=== PATIENT | female | born 1945 | race Caucasian/White ===

== ENCOUNTER → 2017-11-21 | Outpatient (CLI) | payer MEDICARE ==
[~2017-11-21] MED LIST: ALBU17AE23 IH; ALPR0.2550; ALPR0.5T PO; ALPR0.5T7 PO; ASCO100T6; ASCO1TAB17 PO; ASPI-808 PO; ASPI-84 PO; ASPI-9 PO; ASPI325T32 PO; ATORVASTATIN; ATRV10T; BORAGE; CALC600T; CALC600T PO; CALCIUM; CEPH500T PO; CHOL10003; CHOL10003 PO; CHOL400T43 GT; CRAN450T9 PO; CYAN500T44 PO; CYCL10TA9; D50KC PO; DIAZ-345 PO; DOCO1CAP3 PO; DOCU-161 PO; DONE10TA48 PO; DPAS20025; DULO60CA6; ESCI20TA PO; ESCI20TA45 PO; ESTR1TAB24; ESTR1TAB24 PO; EZET10TA5 PO; FERR160T11 PO; FISH; FLAX; FOLI0.4T2; FOLI0.4T2 PO; FOLIC ACID PO; FRSM40T PO; FURO40TA4; FURO40TA4 PO; GABA600T2 PO; GBPN600T; GBPN600T PO; GLUC500C2; GLUC750T PO; GLUCOSAMINE; HYDR-2890 PO; HYDR-3730 PO; HYDR-3820 PO; HYDR-700; HYDR-753 PO; HYDR118S10 PO; HYDR1CAP2; HYDR1CAP3 PO; HYDR1TAB PO; HYDROCODONE; INHALER IH; IRON150C13 PO; ISM60TCR PO; ISOS60TA3 PO; LEVO750T6 PO; LUTEN; MELO-195 PO; MELO15TA14 PO; MELO15TA39 PO; MEMA10TA PO; METH500T7 PO; METO5TAB2; METR500T17 PO; MORP-34 PO; MORP15TA30 PO; MORP30TA5 PO; MS15TCR PO; MTH10T; MULT-418 PO; MULT-952 PO; MULT-974 PO; MULT1CAP27 PO; MULTIVITAMIN; NIFEREX PO; OMEP20CA12 PO; ONDA4TAB11 PO; OXYC-202 PO; OXYC-464 PO; OXYC-465 PO; PANT40TA3 PO; PARO20TA57; PNT40TEC PO; PRAV40TA PO; PRD20T PO; PRX20T PO; QTP100T PO; QUIN10TA; QUIN10TA PO; ROPI1TAB; ROPI1TAB40; ROSU10TA PO; SCR1T1 PO; SERT100T8 PO; SIMV20TA3 PO; SIMVASTATIN; SODI14.12 NS; SUCR1TAB; SUCR1TAB PO; SULF1TAB38 PO; TIOT18CA IH; TRAM50TA2 PO; TRAZ-144 PO; UBID10CA8 PO; UBID200C16 PO; VITAMIN C; VNL75T PO; [UNRECOGNIZED DRUG - CODE] PO; [UNRECOGNIZED DRUG - OTHER]
--- NOTE | 2017-11-21 13:50 | HISTORY AND PHYSICAL ---
DATE OF SERVICE: DATE OF ADMISSION: 11/21/2017. PANENDOSCOPY HISTORY AND PHYSICAL The patient is a 72-year-old white female seen in the office on 11/20/[address] Larios for evaluation for endoscopy. The patient reports a past history of colon polyps at least of six of them with her last colonoscopy being she believes more than 10 years ago. She has a history of reflux and reported erosive esophagitis for which she had been on pantoprazole for at least several years. She had recently moved from [place] and had been out of her medications for several weeks. She saw Dr. Larios last week and medications were resumed. She reports some improvement in her reflux symptoms, but she is still having intermittent dysphagia to solids. She denies weight loss, melena or bright red blood per rectum. PAST MEDICAL HISTORY: Significant for hypertension with no known history of coronary artery disease. She has a history of several back surgeries with multiple levels of lumbar fusion and subsiquent failed back surgery syndrome as she continues to have significant low back pain requiring narcotic therapy in the form of MS Contin 40 mg b.i.d. and p.r.n. oxycodone 5 mg. She has history of hyperlipidemia. PAST SURGICAL HISTORY: Significant for bilateral total knee replacements. She has had 2 revisions of her right knee, the last one little over a year ago. She has had gastric bypass for weight loss and left rotator cuff tear repair in 2014. 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 SOCIAL HISTORY: She reports no significant alcohol intake, has a 50+ pack year smoking history. FAMILY HISTORY: Father at age 78 of unknown cause. He reportedly had some colon trouble but she did not feel that he had colon cancer. Mother at age of 85 secondary to Alzheimer's. She has had one uncle with history of Crohn's disease. PHYSICAL EXAMINATION: GENERAL: Reveals somewhat depressed appearing overweight white female around 5 foot tall weighing 217 pounds. VITAL SIGNS: Blood pressure 130/80. HEENT: Unremarkable, atraumatic, normocephalic. Sclerae are nonicteric. NECK: Revealed no JVD, adenopathy or bruits. CHEST: Clear. CARDIOVASCULAR: Reveals a regular rate and rhythm without murmur, S3 or S4. ABDOMEN: Soft, supple without mass or organomegaly. She has epigastric and left upper quadrant discomfort to palpation as well as epigastric discomfort without rebound or guarding. No mass or organomegaly are noted although obesity precludes sensitivity of evaluation. EXTREMITIES: Reveal trace bilateral edema without evidence for ulceration or venous insufficiency change. ASSESSMENT/PLAN: The patient is set up for panendoscopy, diagnostic EGD with screening colonoscopy due to past history of colon polyps. Diagnostic EGD is being performed for reflux sounding symptoms with dysphagia and epigastric abdominal pain. Prep instructions with Carlson-prep kit were given and questions were answered. She reports a past history of anemia and stated it had been over a year since her blood work had been drawn. There was a mix up in getting her blood tests for [facility] that took the liberty of obtaining a CBC, comprehensive metabolic panel and lipid panel that we will forward to Dr. Larios when available. Job ID: [id number] DocumentID: [id number] Dictated Date: 11/21/2017 12:50:16 Valve Grinder Date: 11/21/2017 13:49:30 Dictated By: MARK STANLEY MD [facility]
== END ==
LOC: PREOP 05:49
PROVIDERS: ATTEND Internal Medicine
DX: Z01.818 Encounter for other preprocedural examination (principal); R13.10 Dysphagia, unspecified; R10.13 Epigastric pain; R10.12 Left upper quadrant pain; Z86.010 Personal history of colon polyps

== ENCOUNTER 2017-12-01 14:56 | Inpatient (IN) | payer MEDICARE ==
[~2017-12-01] VITALS: Ht 147.3 cm; Wt 96.8 kg
[2017-12-01] MEDS ORDERED: NS IV 1000 ML 1,000 ML IV ONE (15:39)
[2017-12-01] MEDS ORDERED: ACETAMINOPHEN 500 MG TAB (TYLENOL) PO PRN ×2 (15:45→21:15)
[2017-12-01 15:46] LABS: BASOPHILS % (AUTO) 0 % (0-10); EOSINOPHILS % (AUTO) 0 % (0-10); HEMATOCRIT 36 % (35-52); LYMPHOCYTES # (AUTO) 1.9 X 10^3 (1.0-4.0); LYMPHOCYTES % (AUTO) 10 % (12-44); MEAN CORPUSCULAR HEMOGLOBIN 32 PG (25-34); MEAN CORPUSCULAR HGB CONC 33 G/DL (32-36); MEAN CORPUSCULAR VOLUME 97 FL (80-99); MEAN PLATELET VOLUME 10.4 FL (7.4-10.4); MONOCYTES # (AUTO) 1.4 X 10^3 (0.0-1.0); MONOCYTES % (AUTO) 7 % (0-12); NEUTROPHILS # (AUTO) 15.8 X 10^3 (1.8-7.8); NEUTROPHILS % (AUTO) 83 % (42-75); PLATELET COUNT 290 10^3/uL (130-400); RED BLOOD COUNT 3.74 10^6/uL (4.35-5.85); RED CELL DISTRIBUTION WIDTH 13.8 % (10.0-14.5); WHITE BLOOD COUNT 19.1 10^3/uL (4.3-11.0)
[2017-12-01 15:48] LABS: BILIRUBIN,URINE NEGATIVE (NEGATIVE); CLARITY,URINE CLEAR; COLOR,URINE YELLOW; GLUCOSE, URINE (UA) NEGATIVE (NEGATIVE); KETONES,URINE NEGATIVE (NEGATIVE); LEUKOCYTE ESTERASE ,URINE NEGATIVE (NEGATIVE); NITRITE,URINE NEGATIVE (NEGATIVE); PH,URINE 6 (5-9); PROTEIN,URINE NEGATIVE (NEGATIVE); UROBILINOGEN,URINE NORMAL (NORMAL)
[2017-12-01 15:50] LABS: BACTERIA,URINE NEGATIVE /HPF; SQUAMOUS EPITHELIAL CELL,UR RARE /HPF
[2017-12-01 15:50] LABS: INR 1.1 (0.8-1.4); PROTHROMBIN TIME PATIENT 13.9 SEC (12.2-14.7)
[2017-12-01 15:57] LABS: ALANINE AMINOTRANSFERASE 16 U/L (0-55); ALBUMIN 3.4 GM/DL (3.2-4.5); ALKALINE PHOSPHATASE 177 U/L (40-136); BILIRUBIN,TOTAL 1.1 MG/DL (0.1-1.0); BUN/CREATININE RATIO 13; CALCIUM 8.6 MG/DL (8.5-10.1); CARBON DIOXIDE 26 MMOL/L (21-32); CHLORIDE 101 MMOL/L (98-107); CREATININE SERUM 0.83 MG/DL (0.60-1.30); GFR ESTIMATED > 60; GLUCOSE 125 MG/DL (70-105); POTASSIUM 3.8 MMOL/L (3.6-5.0); SODIUM 136 MMOL/L (135-145); TOTAL PROTEIN 6.3 GM/DL (6.4-8.2)
[2017-12-01 16:12] LABS: BASOPHILS % (MANUAL) 1 %; LYMPHOCYTES % (MANUAL) 13 %; MONOCYTES % (MANUAL) 8 %; NEUTROPHILS % (MANUAL) 78 %; STOMATOCYTES MODERATE
--- NOTE | 2017-12-01 16:23 | ED General ---
General Chief Complaint: Fever-Adult/Adol Stated Complaint: DIZZY/FEVER Nursing Triage Note: PT ARRIVED PER EMS, PT CO OF FEVER, STIFF NECK FOR 2 WEEKS. PT HAS FEVER UP TO 101.4 FOR EMS. PT ALERT STATES HAS GENERALIZED ACHIENESS. HAS HAD VOMITING AND DIARRHEA AND VOMITING FOR A COUPLE DAYS. PT STATES NOT PEEING VERY WELL. PT STATES WAS SEEN BY [facility] LAST MONDAY Nursing Sepsis Screen: Possible Sepsis Risk Source of Information: Patient Exam Limitations: No Limitations History of Present Illness Date Seen by Provider: Dec 01, 2017 Time Seen by Provider: 16:06 Initial Comments Here by EMS with a week to 10 days of fever and not feeling well. Also has had generalized aches with vomiting and diarrhea. This is been going on for a couple days. Seen last Monday at [facility]. Does complain of headache. Neck pain but this seems to be associated with a generalized body aches. Timing/Duration: 1 Week Severity: Moderate Associated Systoms: No Chest Pain, Cough, Fever/Chills, Headaches, Nausea/ Vomiting, No Shortness of Air, Weakness Allergies and Home Medications Allergies Coded Allergies: Penicillins (Unverified Allergy, Mild, PT DOES NOT REMEMBER RXN > 30 YRS, 02/20/10) nalbuphine (Unverified Allergy, Mild, 04/23/09) Home Medications Alprazolam 0.5 Mg Tablet, 0.25-0.5 MG PO TID PRN for ANXIETY, (Reported) Aspirin 325 Mg Tablet, 325 MG PO DAILY, (Reported) Ergocalciferol 50,000 Units Cap, 50,000 UNITS PO THUR @ 1400, (Reported) Escitalopram Oxalate 20 Mg Tablet, 20 MG PO 1800, (Reported) Ezetimibe 10 Mg Tablet, 10 MG PO HS, (Reported) Folic Acid 0.4 Mg Tablet, 0.4 MG PO DAILY, (Reported) Furosemide 40 Mg Tablet, 40 MG PO DAILY, (Reported) Gabapentin 600 Mg Tablet, 600 MG PO TID, (Reported) Iron Polysaccharide Complex 150 Mg Capsule, 150 MG PO BID, (Reported) Meloxicam 15 Mg Tablet, 15 MG PO HS, (Reported) Methocarbamol 500 Mg Tablet, 500 MG PO TID, (Reported) Morphine Sulfate 30 Mg Tablet.er, 30 MG PO BID, (Reported) Multivitamin 1 Each Tablet, 1 TAB PO DAILY, (Reported) Omeprazole 20 Mg Capsule.dr, 20 MG PO BID, (Reported) Oxycodone HCl/Acetaminophen 1 Each Tablet, 1 TAB PO Q6H PRN for PAIN, (Reported) Pantoprazole Sodium 40 Mg Tablet.dr, 40 MG PO DAILY, (Reported) Rosuvastatin Calcium 10 Mg Tablet, 10 MG PO HS, (Reported) Sodium Chloride/Aloe Vera 14.1 Gm Gel..gram., NS DAILY PRN for DRY NOSE, ( Reported) Constitutional: see HPI, No chills, No fever EENTM: no symptoms reported Respiratory: see HPI, cough Cardiovascular: no symptoms reported, No chest pain Gastrointestinal: see HPI Genitourinary: no symptoms reported Musculoskeletal: no symptoms reported All Other Systems Reviewed Negative Unless Noted: Yes Past Ejrnqtl-Jpgsfb-Notpxe Hx Patient Social History Alcohol Use: Denies Use Recreational Drug Use: No Smoking Status: Former Smoker Recent Foreign Travel: No Contact w/Someone Who Travel: No Recent Infectious Disease Expo: No Recent Hopitalizations: No Physical Abuse: No Sexual Abuse: No Immunizations Up To Date Tetanus Booster (TDap): More than 5yrs Date of Pneumonia Vaccine: Oct 01, 2010 Date of Influenza Vaccine: Jun 29, 2015 Seasonal Allergies Seasonal Allergies: Yes Surgeries History of Surgeries: Yes (RIGHT ANKLE, BILAT TOTAL KNEE, GASTRIC BYPASS, L ROTATOR CUFF REPAIR 01/04,) Surgeries: Gallbladder, Hysterectomy, Orthopedic Respiratory History of Respiratory Disorde: Yes (wears oxygen at night, and prn during day , mild sleep apnea-) Respiratory Disorders: Sleep Apnea, COPD Currently Using CPAP: No Currently Using BIPAP: No Cardiovascular History of Cardiac Disorders: Yes Cardiac Disorders: High Cholesterol Neurological History of Neurological Disord: Yes (fell from a three story building in concussion, concusion from fall) Neurological Disorders: TIA Reproductive System Hx Reproductive Disorders: No Female Reproductive Disorders: Menstrual Problems 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 Gastrointestinal History of Gastrointestinal Di: Yes (hepatitis in 1979 not sure which type) Gastrointestinal Disorders: Colitis, Gastroesophageal Reflux, Chronic Constipation, Hepatitis, Gall Bladder Disease Musculoskeletal History of Musculoskeletal Dis: Yes (NERVE STIMULATOR IN BACK, broken back ) Musculoskeletal Disorders: Arthritis, Back Injury, Chronic Back Pain Endocrine History of Endocrine Disorders: No Endocrine Disorders: Diabetes, Non-Insulin dep HEENT HEENT Disorders: Cataract Loss of Vision: Denies Hearing Impairment: Hard of Hearing Cancer History of Cancer: Yes (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) Psychosocial History of Psychiatric Problem: Yes Behavioral Health Disorders: Anxiety, Depression Suicide Risk Score: 0 Integumentary History of Skin or Integumenta: No (SCRATCH ON TOP OF RIGHT WRIST) Blood Transfusions History of Blood Disorders: Yes (ANEMIA) Adverse Reaction to a Blood Tr: No Reviewed Nursing Assessment Reviewed/Agree w Nursing PMH: Yes Family Medical History Significant Family History: Heart Disease, Cancer, Hypertension, Psychiatric Problems, Vascular Disease Family Medial History: Alzheimer's disease (MOTHER) Cancer (FATHER LIVER CA SISTER CA) Cardiovascular disease G8 SISTER Dementia FH: lupus (SISTER) Family history: Cardiovascular disease Family history: Diabetes mellitus Family history: Hypertension Heart disease Physical Exam-Suspected Sepsis Physical Exam Vital Signs Vital Signs - First Documented 12/01/17 15:03 Temp 100.4 Pulse 91 Resp 18 B/P (MAP) 115/73 (87) Pulse Ox 93 Capillary Refill : Less Than 3 Seconds Blood Pressure Mean: 87 General Appearance: No Apparent Distress, WD/WN HEENT: PERRL/EOMI, Pharynx Normal Neck: Full Range of Motion, Normal Inspection, Non Tender, Supple Respiratory: No Respiratory Distress, Crackles (bilateral bases), Wheezing ( few scattered) Cardiovascular: Regular Rate, Rhythm, No Murmur Gastrointestinal: Non Tender, Soft Back: Normal Inspection, No CVA Tenderness, No Vertebral Tenderness Extremity: Normal Range of Motion, Non Tender Neurologic/Psychiatric: Alert, Oriented x3 Skin: normal color, warm/dry Focused Exam Evaluation Lactate Level Laboratory Tests 12/01/17 15:57: Lactic Acid Level 1.04 Lactic Acid Level Laboratory Tests Test 12/01/17 15:57 Lactic Acid Level 1.04 MMOL/L (0.50-2.00) Progress/Results/Core Measures Suspected Sepsis Recent Fever Within 48 Hours: Yes Infection Criteria Present: Suspected New Infection New/Unexplained Altered Menta: No Sepsis Screen: Possible Sepsis Risk Sepsis Diagnosis: SIRS Temperature:100.4 Pulse: 91 Respiratory Rate: 18 Laboratory Tests 12/01/17 15:15: White Blood Count 19.1H Blood Pressure 115 /73 Mean: 87 Laboratory Tests 12/01/17 15:57: Lactic Acid Level 1.04 Laboratory Tests 12/01/17 15:15: Creatinine 0.83, INR Comment 1.1, Platelet Count 290, Total Bilirubin 1.1H Results/Orders Lab Results Laboratory Tests Test 12/01/17 15:15 12/01/17 15:23 12/01/17 15:25 12/01/17 15:57 Range/Units White Blood Count 19.1 H 4.3-11.0 10^3/uL Red Blood Count 3.74 L 4.35-5.85 10^6/uL Hemoglobin 12.0 11.5-16.0 G/DL Hematocrit 36 35-52 % Mean Corpuscular Volume 97 80-99 FL Mean Corpuscular Hemoglobin 32 25-34 PG Mean Corpuscular Hemoglobin Concent 33 32-36 G/DL Red Cell Distribution Width 13.8 10.0-14.5 % Platelet Count 290 130-400 10^3/uL Mean Platelet Volume 10.4 7.4-10.4 FL Neutrophils (%) (Auto) 83 H 42-75 % Lymphocytes (%) (Auto) 10 L 12-44 % Monocytes (%) (Auto) 7 0-12 % Eosinophils (%) (Auto) 0 0-10 % Basophils (%) (Auto) 0 0-10 % Neutrophils # (Auto) 15.8 H 1.8-7.8 X 10^3 Lymphocytes # (Auto) 1.9 1.0-4.0 X 10^3 Monocytes # (Auto) 1.4 H 0.0-1.0 X 10^3 Eosinophils # (Auto) 0.0 0.0-0.3 10^3/uL Basophils # (Auto) 0.0 0.0-0.1 10^3/uL Neutrophils % (Manual) 78 % Lymphocytes % (Manual) 13 % Monocytes % (Manual) 8 % Basophils % (Manual) 1 % Stomatocytes MODERATE Prothrombin Time 13.9 12.2-14.7 SEC INR Comment 1.1 0.8-1.4 Activated Partial Thromboplast Time 32 24-35 SEC Sodium Level 136 135-145 MMOL/L Potassium Level 3.8 3.6-5.0 MMOL/L Chloride Level 101 98-107 MMOL/L Carbon Dioxide Level 26 21-32 MMOL/L Anion Gap 9 5-14 MMOL/L Blood Urea Nitrogen 11 7-18 MG/DL Creatinine 0.83 0.60-1.30 MG/DL Estimat Glomerular Filtration Rate > 60 BUN/Creatinine Ratio 13 Glucose Level 125 H 70-105 MG/DL Calcium Level 8.6 8.5-10.1 MG/DL Total Bilirubin 1.1 H 0.1-1.0 MG/DL Aspartate Amino Transf (AST/SGOT) 19 5-34 U/L Alanine Aminotransferase (ALT/SGPT) 16 0-55 U/L Alkaline Phosphatase 177 H 40-136 U/L C-Reactive Protein High Sensitivity 4.80 H 0.00-0.50 MG/DL Total Protein 6.3 L 6.4-8.2 GM/DL Albumin 3.4 3.2-4.5 GM/DL Glucometer 117 H 70-110 MG/DL Urine Color YELLOW Urine Clarity CLEAR Urine pH 6 5-9 Urine Specific Roosevelt 1.010 L 1.016-1.022 Urine Protein NEGATIVE NEGATIVE Urine Glucose (UA) NEGATIVE NEGATIVE Urine Ketones NEGATIVE NEGATIVE Urine Nitrite NEGATIVE NEGATIVE Urine Bilirubin NEGATIVE NEGATIVE Urine Urobilinogen NORMAL NORMAL MG/DL Urine Leukocyte Esterase NEGATIVE NEGATIVE Urine RBC (Auto) NEGATIVE NEGATIVE Urine RBC NONE /HPF Urine WBC NONE /HPF Urine Squamous Epithelial Cells RARE /HPF Urine Renal Epithelial Cells NONE /HPF Urine Crystals NONE /LPF Urine Bacteria NEGATIVE /HPF Urine Casts NONE /LPF Urine Mucus NEGATIVE /LPF Urine Culture Indicated NO Lactic Acid Level 1.04 0.50-2.00 MMOL/L My Orders Orders - MATT HIDALGO MD Ns Iv 1000 Ml (Sodium Chloride 0.9%) (12/01/17 15:39) Cbc With Automated Diff (12/01/17 15:39) Comprehensive Metabolic Panel (12/01/17 15:39) Lactic Acid Analyzer (12/01/17 15:39) Blood Culture (12/01/17 15:39) Sputum Culture (12/01/17 15:39) Ua Culture If Indicated (12/01/17 15:39) Protime With Inr (12/01/17 15:39) Partial Thromboplastin Time (12/01/17 15:39) Chest 1 View, Ap/Pa Only (12/01/17 15:39) O2 (12/01/17 15:39) Acetaminophen Tablet (Tylenol Tablet) (12/01/17 15:45) Saline Lock/Iv-Start (12/01/17 15:39) Vital Signs Adult Sepsis Patie Q1H (12/01/17 15:39) Remove Rings In Anticipation O (12/01/17 15:39) Influenza A And B Antigens (12/01/17 15:39) Catheter(Urinary) Insert & Ass 03,15 (12/01/17 15:39) Manual Differential (12/01/17 15:15) Ct Head Wo (12/01/17 16:20) Hs C Reactive Protein (12/01/17 16:22) Medications Given in ED Current Medications Medications Dose Ordered Sig/Anila Route Start Time Stop Time Status Last Admin Dose Admin Acetaminophen 1,000 mg ONCE PRN PO 12/01/17 15:45 12/01/17 16:04 DC 12/01/17 16:04 1,000 MG Sodium Chloride 1,000 ml @ 0 mls/hr Q0M ONCE IV 12/01/17 15:39 12/01/17 15:41 DC 12/01/17 16:04 1,000 MLS/HR Vital Signs/I&O Vital Sign - Last 12Hours 12/01/17 15:03 Temp 100.4 Pulse 91 Resp 18 B/P (MAP) 115/73 (87) Pulse Ox 93 Capillary Refill : Less Than 3 Seconds Blood Pressure Mean: 87 Progress Note : Progress Note Seen and evaluated. IV, labs, UA, normal saline 1 L bolus, lactic acid and blood cultures ordered. Influenza screen ordered. Chest x-ray ordered. Monitor patient. Patient is complaining of headache and neck pain we will consider further evaluation but we are going to look for another source of infection prior to consideration of LP. Patient has very supple neck. CT head ordered. 1740: CT negative but patient does have fairly prominent left lower lobe pneumonia. I discussed the case with Dr. Fernandez and she accepts patient for admission, inpatient status. Patient's primary care doctor is Dr. Larios. Rocephin 1 g IV ordered. Findings and concerns were discussed with the family who agree with plan. Diagnostic Imaging Diagonstic Imaging: Xray Plain Films/CT/US/NM/MRI: chest Comments VIA [facility], [facility]. [place], [place] NAME: [facility] REC#: [id number] PT STATUS: REG ER : 1945 PHYSICIAN: MATT HIDALGO MD ADMIT DATE: 12/01/17/ER Draft Date of Exam:12/01/17 CT HEAD WO PROCEDURE: CT head without contrast. TECHNIQUE: Multiple contiguous axial images were obtained through the brain without the use of intravenous contrast. INDICATION: Dizziness. Febrile. FINDINGS: There is generalized cortical atrophy. There is no intracranial hemorrhage. There is no mass effect. The ventricles are not dilated. Basal cisterns are clear. There is question of mild enlargement of the pituitary. Mastoid air cells and paranasal sinuses are clear. No calvarial fractures. IMPRESSION: 1. No acute intracranial abnormalities are demonstrated. 2. Question of mild enlargement of the pituitary; however, this does appear stable when compared with previous CT head of 10/21/2015. Dictated on workstation # [id number] Dict: 12/01/17 1704 Trans: 12/01/17 1708 [id number] Interpreted by: MICK RED MD Electronically signed by: Reviewed: Reviewed by Me Departure Impression Impression: Primary Impression: Left lower lobe pneumonia Qualified Codes: J18.1 - Lobar pneumonia, unspecified organism Disposition: ADMITTED INPATIENT Condition: Stable Admissions Decision to Admit Reason: Admit from ER (General) Decision to Admit/Date: Dec 01, 2017 Time/Decision to Admit Time: 17:40 Departure-Patient Inst. Referrals: LEANDRO FIGUEROA MD (PCP/Family) Primary Care Physician MATT HIDALGO MD Dec 01, 2017 16:23
--- NOTE | 2017-12-01 16:30 | Diagnostic Imaging Report ---
Indication: Chest pain. Febrile. Comparison: 12/25/2015. Findings: There has been development of some infiltrate in the left lower lobe since previous exam. This does appear somewhat round and dense. Left upper lung is clear. Right lung is clear. The heart is mildly enlarged. There is no pulmonary edema. No pneumothorax or pleural effusion. IMPRESSION: Density developing in left lower lung would be consistent with pneumonia. Clinical followup recommended. Dictated by: Dictated on workstation # [id number]
--- NOTE | 2017-12-01 17:08 | Diagnostic Imaging Report ---
PROCEDURE: CT head without contrast. TECHNIQUE: Multiple contiguous axial images were obtained through the brain without the use of intravenous contrast. INDICATION: Dizziness. Febrile. FINDINGS: There is generalized cortical atrophy. There is no intracranial hemorrhage. There is no mass effect. The ventricles are not dilated. Basal cisterns are clear. There is question of mild enlargement of the pituitary. Mastoid air cells and paranasal sinuses are clear. No calvarial fractures. IMPRESSION: 1. No acute intracranial abnormalities are demonstrated. 2. Question of mild enlargement of the pituitary; however, this does appear stable when compared with previous CT head of 10/21/2015. Dictated by: Dictated on workstation # [id number]
[2017-12-01] MEDS ORDERED: cefTRIAXone INJECTION 1,000 MG in NS (IVPB) 50 ML IV ONE (18:00)
[2017-12-01 19:00] VITALS: BP 126/58
[2017-12-01] MEDS ORDERED: CATHETER FLUSH 10 ML SYR IV PRN (19:15)
[2017-12-01] MEDS ORDERED: ONDANSETRON 4 MG/2 ML (SDV) Z0FRAN IV PRN (19:15)
[2017-12-01 19:40] VITALS: BP 115/73
[2017-12-01] MEDS ORDERED: RT-ALBUTEROL/IPRATROPIUM 3 ML (DUONEB) VIAL INH PRN (19:45)
[2017-12-01] MEDS: NS IV 1000 ML 1,000 ML IV SCH (20:51)
[2017-12-01] MEDS ORDERED: oxyCODONE/APAP 7.5-325 MG (PERCOCET 7.5) TABLET PO PRN (21:15)
[2017-12-01] MEDS: RT-ALBUTEROL/IPRATROPIUM 3 ML (DUONEB) VIAL INH SCH (21:49)
--- NOTE | 2017-12-01 22:00 | Diagnostic Imaging Report ---
INDICATION: Constant left hip pain has increased in severity. EXAMINATION: Two views of the left hip were obtained. FINDINGS: No fracture, dislocation or other acute abnormality. No significant degenerative changes are seen. IMPRESSION: No acute abnormality is seen with no change from 04/23/2009. Dictated by: Dictated on workstation # [id number]
--- NOTE | 2017-12-01 22:00 | Diagnostic Imaging Report ---
INDICATION: Constant right hip pain that has gotten worse in the last several days. Two views of the right hip show no fracture, dislocation or other abnormality. IMPRESSION: No acute abnormality is seen with no significant change from a prior study from 04/23/2009. Dictated by: Dictated on workstation # [id number]
[2017-12-02 00:45] VITALS: BP 129/66
[2017-12-02] MEDS: RT-ALBUTEROL/IPRATROPIUM 3 ML (DUONEB) VIAL INH SCH ×6 (01:48→21:40)
[2017-12-02 04:00] VITALS: BP 154/67
[2017-12-02 05:39] LABS: BASOPHILS % (AUTO) 0 % (0-10); EOSINOPHILS % (AUTO) 0 % (0-10); HEMATOCRIT 34 % (35-52); HEMOGLOBIN 11.1 G/DL (11.5-16.0); LYMPHOCYTES # (AUTO) 1.8 X 10^3 (1.0-4.0); LYMPHOCYTES % (AUTO) 15 % (12-44); MEAN CORPUSCULAR HEMOGLOBIN 32 PG (25-34); MEAN CORPUSCULAR HGB CONC 32 G/DL (32-36); MEAN CORPUSCULAR VOLUME 98 FL (80-99); MEAN PLATELET VOLUME 10.7 FL (7.4-10.4); MONOCYTES % (AUTO) 8 % (0-12); NEUTROPHILS # (AUTO) 9.5 X 10^3 (1.8-7.8); NEUTROPHILS % (AUTO) 76 % (42-75); PLATELET COUNT 237 10^3/uL (130-400); RED CELL DISTRIBUTION WIDTH 13.9 % (10.0-14.5); WHITE BLOOD COUNT 12.4 10^3/uL (4.3-11.0)
[2017-12-02 05:58] LABS: ALANINE AMINOTRANSFERASE 13 U/L (0-55); ALKALINE PHOSPHATASE 153 U/L (40-136); BILIRUBIN,TOTAL 0.9 MG/DL (0.1-1.0); BUN/CREATININE RATIO 15; CALCIUM 8.5 MG/DL (8.5-10.1); CARBON DIOXIDE 23 MMOL/L (21-32); CHLORIDE 109 MMOL/L (98-107); CREATININE SERUM 0.68 MG/DL (0.60-1.30); GFR ESTIMATED > 60; GLUCOSE 100 MG/DL (70-105); POTASSIUM 3.3 MMOL/L (3.6-5.0); SODIUM 140 MMOL/L (135-145); TOTAL PROTEIN 5.5 GM/DL (6.4-8.2)
[2017-12-02] MEDS ORDERED: INFLUENZA TRIvalent 2017-2018 0.5 ML/45 MCG SYR IM ONE (07:30)
[2017-12-02 08:30] VITALS: BP 169/66
[2017-12-02] MEDS ORDERED: ASPI-999 PO (08:45)
[2017-12-02] MEDS ORDERED: PANT40TA3 PO (08:45)
[2017-12-02] MEDS ORDERED: ALPR0.5T7 PO (08:45)
[2017-12-02] MEDS ORDERED: oxyCODONE/APAP 10/325MG (PERCOCET 10) TABLET PO PRN (08:45)
[2017-12-02] MEDS ORDERED: OXYC-465 PO (08:48)
[2017-12-02] MEDS ORDERED: SIMV20TA3 PO (08:48)
[2017-12-02] MEDS: cefTRIAXone INJECTION 1,000 MG in NS (IVPB) 50 ML IV SCH (08:55)
[2017-12-02] MEDS ORDERED: morphine ER 30 MG (MS CONTIN) TAB PO SCH ×2 (09:00→21:00)
[2017-12-02] MEDS ORDERED: ALPRAZolam 0.5 MG (XANAX) TAB PO SCH (09:00)
[2017-12-02] MEDS ORDERED: AZITHROMYCIN INJECTION 500 MG in NS (IVPB) 250 ML IV SCH (09:00)
[2017-12-02] MEDS: PANTOPRAZOLE 40 MG (PROTONIX) TAB PO SCH (10:04)
[2017-12-02] MEDS: NS IV 1000 ML 1,000 ML IV SCH ×2 (10:06→17:37)
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
[2017-12-02] MEDS: GABAPENTIN 600 MG (NEURONTIN) TAB PO SCH ×3 (10:55→20:37)
[2017-12-02] MEDS: SIMvastatin 20 MG (ZOCOR) TAB PO SCH (10:55)
[2017-12-02] MEDS: FUROSEMIDE 40 MG (LASIX) TAB PO SCH (10:55)
[2017-12-02] MEDS: ASPIRIN 81 MG CHEW (CHILDREN'S ASA) PO SCH (10:55)
[2017-12-02] MEDS ORDERED: ALPRAZolam 0.5 MG (XANAX) TAB PO PRN (11:00)
[2017-12-02 12:09] LABS: ALANINE AMINOTRANSFERASE 14 U/L (0-55); ALBUMIN 3.2 GM/DL (3.2-4.5); ALKALINE PHOSPHATASE 154 U/L (40-136); BILIRUBIN,TOTAL 0.5 MG/DL (0.1-1.0); BUN/CREATININE RATIO 15; CALCIUM 8.7 MG/DL (8.5-10.1); CARBON DIOXIDE 23 MMOL/L (21-32); CHLORIDE 106 MMOL/L (98-107); CREATININE SERUM 0.72 MG/DL (0.60-1.30); GFR ESTIMATED > 60; GLUCOSE 120 MG/DL (70-105); POTASSIUM 3.3 MMOL/L (3.6-5.0); SODIUM 139 MMOL/L (135-145)
[2017-12-02 12:30] VITALS: BP 157/78
[2017-12-02] MEDS ORDERED: KCL 20 MEQ TAB (K-DUR) PO NR (13:00)
[2017-12-02] MEDS: ENOXAPARIN 40 MG/0.4 ML (LOVENOX) SYR SC SCH (14:59)
[2017-12-02 16:00] VITALS: BP 133/71
[2017-12-02] MEDS ORDERED: NON-FORMULARY MEDICATION 1 EA EA (Escitalopram Oxalate (Lexapro) 20 MG) PO SCH (18:00)
[2017-12-02 20:00] VITALS: BP 143/67
[2017-12-02] MEDS: eZETimibe 10 MG (ZETIA) TABLET PO SCH (20:36)
[2017-12-02] MEDS: HYDROcodone/APAP 5 MG/325 MG (LORTAB) TAB PO PRN (20:37)
[2017-12-02] MEDS: morphine ER 15 MG (MS CONTIN) TAB PO SCH (20:37)
[2017-12-02] MEDS: MELOXICAM 7.5 MG (MOBIC) TABLET PO SCH (20:37)
[2017-12-02] MEDS ORDERED: NON-FORMULARY MEDICATION 1 EA EA (Meloxicam 15 MG) PO SCH (21:00)
[2017-12-03 00:30] VITALS: BP 104/64
[2017-12-03] MEDS: RT-ALBUTEROL/IPRATROPIUM 3 ML (DUONEB) VIAL INH SCH ×6 (01:29→22:36)
[2017-12-03] MEDS: HYDROcodone/APAP 5 MG/325 MG (LORTAB) TAB PO PRN ×2 (04:05→17:10)
[2017-12-03 04:30] VITALS: BP 101/59
[2017-12-03 05:30] LABS: HEMOGLOBIN 10.4 G/DL (11.5-16.0); MEAN PLATELET VOLUME 10.7 FL (7.4-10.4); RED BLOOD COUNT 3.29 10^6/uL (4.35-5.85); RED CELL DISTRIBUTION WIDTH 14.1 % (10.0-14.5); WHITE BLOOD COUNT 6.9 10^3/uL (4.3-11.0)
[2017-12-03] MEDS: PANTOPRAZOLE 40 MG (PROTONIX) TAB PO SCH (06:21)
[2017-12-03] MEDS: NS IV 1000 ML 1,000 ML IV SCH ×2 (06:21→20:22)
[2017-12-03] MEDS: SIMvastatin 20 MG (ZOCOR) TAB PO SCH (07:51)
[2017-12-03] MEDS: AZITHROMYCIN 250 MG TAB (ZITHROMAX) PO SCH (07:51)
[2017-12-03] MEDS: FUROSEMIDE 40 MG (LASIX) TAB PO SCH (07:51)
[2017-12-03] MEDS: cefTRIAXone INJECTION 1,000 MG in NS (IVPB) 50 ML IV SCH (07:52)
[2017-12-03] MEDS: ASPIRIN 81 MG CHEW (CHILDREN'S ASA) PO SCH (07:52)
[2017-12-03] MEDS: morphine ER 15 MG (MS CONTIN) TAB PO SCH ×3 (07:52→21:21)
[2017-12-03] MEDS: GABAPENTIN 600 MG (NEURONTIN) TAB PO SCH ×3 (07:52→20:21)
[2017-12-03 08:30] VITALS: BP 125/56
--- OUTSIDE RECORDS SUMMARY | 2017-12-03 08:45 | XMS REPORT | Clinical Summary ---
Author Author [facility] Organization [facility] Address Unknown Phone Unavailable Care Team Providers Care Percussion Instructor Name Role Phone No Pcp, Na PCP Unavailable Agustin Buitrago MD Unavailable Source Comments Some departments are not documenting in the electronic medical record. If you do not see the information that you expected, contact Release of Information in the Health Information Management department at [phone] for further assistance in locating additional records.[facility] Allergies Active Allergy Reactions Severity Noted Date Comments Naproxen UNKNOWN 11/25/2014 Penicillins RASH 11/25/2014 Current Medications Prescription Sig. Disp. Refills Start End Date Status Date gabapentin (NEURONTIN) Take 600 mg by mouth Active 600 mg tablet three times daily. pantoprazole DR Take 40 mg by mouth Active (PROTONIX) 40 mg tablet daily. morphine SR (MS CONTIN; Take 30 mg by mouth every Active ORAMORPH SR) 30 mg tablet 12 hours ALPRAZolam (XANAX) 0.5 mg Take 0.5 mg by mouth at Active tablet bedtime as needed. HYDROcodone-acetaminophen Take 1 Tab by mouth every Active (+) (VICODIN) 10-325 mg 6 hours as needed. tablet omeprazole DR(+) Take 20 mg by mouth Active (PRILOSEC) 20 mg capsule daily. meloxicam (MOBIC) 7.5 mg Take 15 mg by mouth Active tablet daily. simvastatin (ZOCOR) 20 mg Take 20 mg by mouth at Active tablet bedtime daily. furosemide (LASIX) 20 mg Take 40 mg by mouth Active tablet daily. ezetimibe (ZETIA) 10 mg Take 10 mg by mouth Active tablet daily. ERGOCALCIFEROL (VITAMIN Take by mouth. Active D2) (VITAMIN D2 PO) sertraline (ZOLOFT) 100 Take 100 mg by mouth Active mg tablet daily. sucralfate (CARAFATE) 1 Take 1 g by mouth four Active gram tablet times daily. metroNIDAZOLE (FLAGYL) Take 500 mg by mouth Active 500 mg tablet three times daily. DOCOSAHEXANOIC ACID/EPA Take by mouth. Active (FISH OIL PO) FOLIC ACID PO Take by mouth. Active Coenzyme Q10 (CO Q-10) 10 Take by mouth. 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 Temperature - - Respiratory Rate - - Oxygen Saturation - - Inhaled Oxygen - - Concentration Weight 88.9 kg (196 lb) 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
--- OUTSIDE RECORDS SUMMARY | 2017-12-03 08:47 | XMS REPORT ---
Author Author NICHOLAS CHOE Organization [employer] Address Unknown Phone Unavailable Care Team Providers Care Genetic Counselor Name Role Phone NICHOLAS CHOE CP Unavailable Allergies, Adverse Reactions, Alerts Substance Reaction Event Type Fentanyl Confusion, hallucinations. Drug Allergy Problems Problem Type Condition Code Onset Dates Condition Status Problem Family history of diabetes mellitus V18.0 Active Problem Pain in joint, shoulder region 719.41 Active Problem Pain in soft tissues of limb 729.5 Active Problem Hallucinations 780.1 Active Problem Unspecified myalgia and myositis 729.1 Active Problem Unspecified hypotension 458.9 Active Problem Routine gynecological examination V72.31 Active Problem Generalized hyperhidrosis 780.8 Active Problem Cramp of limb 729.82 Active Problem Unspecified breast screening V76.10 Active Problem Pneumonia due to other Streptococcus 482.39 Active Problem Injury, other and unspecified, elbow, forearm, and wrist 959.3 Active Problem Allergic rhinitis, cause unspecified 477.9 Active Problem Pain in joint, lower leg 719.46 Active Problem Unspecified fracture of radius and ulna, upper end of forearm, closed 813.00 Active Problem PPV23 (PNEUMOVAX) DX V03.82 Active Problem Unspecified disorder of kidney and ureter 593.9 Active Problem Presenile dementia, 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 [address]-16 50 mg Jul 23, 2013 1 tablet by Oral route 1 time per day Mobic [facility] [address]-07 15 mg Quantity Amount, Route, and Frequency Jul 1 Tablet by Oral route 1 time per day Effexor [facility] 0 75 mg Jul 03, 2013 1 tablet by Oral route 2 times per day Sucralfate [facility] [address]-85 1 gram December 26, 2012 1 Tablet 4 times per day Before meals and before bed Robaxin [facility] [address]-93 500 mg May 09, 2013 1 tablet by Oral route 3 times per day Aricept [facility] [address]-88 10 mg Jul 23, 2013 1 tablet by Oral route 1 time per day Hydrocodone-Acetaminophen [facility] [address]-57 10-325 MG Orally every 12 hours April 29, 2013 1 tablet as needed Gabapentin [facility] [address]-39 600 mg Jul 03, 2013 take 1 tablet ( 600 mg) by oral route 3 times per day Omeprazole Magnesium [facility] [id number] 20 mg Oct 29, 2012 1 capsule by Oral route 1 time per day quinapril NDC 0 10 mg December 26, 2012 0.5 tablet by Oral route 1 time per day Furosemide [facility] [address]-19 40 mg Jun 10, 2013 1 tablet by Oral route 1 time per day morphine NDC 0 60 mg 2 times a day PRN Jul 16, 2013 1 tablet Estradiol [facility] [address]-51 1 mg Jul 23, 2013 1 tablet by Oral route 1 time per day Seroquel [facility] [address]-33 100 mg Sep 20, 2012 1 Tablet by Oral route 1 time per day Results No Known Results Summary Purpose [employer] Submission
--- OUTSIDE RECORDS SUMMARY | 2017-12-03 08:51 | XMS REPORT | Continuity of Care Document ---
Author Author [facility] Address Unknown Phone Unavailable Allergies Active Description Code Type Severity Reaction Onset Reported/Identified Relationship to Patient Clinical Status Yes nalbuphine [id number] Drug Allergy Mild N/A 04/23/2009 Yes Penicillins [id number] Drug Allergy Mild PT DOES NOT REM 02/20/2010 Yes Nubain Drug Allergy N/A N/A 08/19/2010 Yes Penicillins Drug Allergy N/A N/A 08/19/2010 Yes Nubain Drug Allergy 08/19/2010 Yes Penicillins Drug Allergy 08/19/2010 Yes fentanyl Drug Allergy N/A N/A 10/25/2011 Yes fentanyl Drug Allergy 10/25/2011 Medications There is no data. 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 08/19/2010 ROSITA PACHECO MD 724.2 LUMBAGO 08/19/2010 ARETHA ARZATE APRN S 266.2 OTHER B-COMPLEX DEFICIENCIES 08/19/2010 ARETHA ARZATE APRN S 272.4 OTHER AND UNSPECIFIED HYPERLIPIDEMIA 08/19/2010 LIZZY ARZATE APRNNDA S 338.29 OTHER CHRONIC PAIN 08/19/2010 LIZZY ARZATE APRNNDA S 401.9 UNSPECIFIED ESSENTIAL HYPERTENSION 08/19/2010 ARETHA ARZATE APRN S 627.2 SYMPTOMATIC MENOPAUSAL OR FEMALE CLIMACTERIC STATES 08/19/2010 HUEY JUMA BALLARDA S 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 08/19/2010 HUEY JUMA BALLARDA S 724.2 LUMBAGO 08/19/2010 266.2 OTHER B- COMPLEX DEFICIENCIES 08/19/2010 272.4 OTHER AND UNSPECIFIED HYPERLIPIDEMIA 08/19/2010 338.29 OTHER CHRONIC PAIN 08/19/2010 401.9 UNSPECIFIED ESSENTIAL HYPERTENSION 08/19/2010 627.2 SYMPTOMATIC MENOPAUSAL OR FEMALE CLIMACTERIC STATES 08/19/2010 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 08/19/2010 724.2 LUMBAGO 08/19/2010 PANCHAL DO, GABRIELLE K 266.2 OTHER B-COMPLEX DEFICIENCIES 08/19/2010 PANCHAL DO, GABRIELLE K 272.4 OTHER AND UNSPECIFIED HYPERLIPIDEMIA 08/19/2010 PANCHAL DO, GABRIELLE K 338.29 OTHER CHRONIC PAIN 08/19/2010 PANCHAL DO, GABRIELLE K 401.9 UNSPECIFIED ESSENTIAL HYPERTENSION 08/19/2010 PANCHAL DO GABRIELLE K 627.2 SYMPTOMATIC MENOPAUSAL OR FEMALE CLIMACTERIC STATES 08/19/2010 PANCHAL DO, GABRIELLE K 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 08/19/2010 PANCHAL DO, GABRIELLE K 724.2 LUMBAGO 08/19/2010 266.2 OTHER B- COMPLEX DEFICIENCIES 08/19/2010 272.4 OTHER AND UNSPECIFIED HYPERLIPIDEMIA 08/19/2010 338.29 OTHER CHRONIC PAIN 08/19/2010 401.9 UNSPECIFIED ESSENTIAL HYPERTENSION 08/19/2010 627.2 SYMPTOMATIC MENOPAUSAL OR FEMALE CLIMACTERIC STATES 08/19/2010 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 08/19/2010 724.2 LUMBAGO 08/19/2010 266.2 OTHER B- COMPLEX DEFICIENCIES 08/19/2010 272.4 OTHER AND UNSPECIFIED HYPERLIPIDEMIA 08/19/2010 338.29 OTHER CHRONIC PAIN 08/19/2010 401.9 UNSPECIFIED ESSENTIAL HYPERTENSION 08/19/2010 627.2 SYMPTOMATIC MENOPAUSAL OR FEMALE CLIMACTERIC STATES 08/19/2010 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 08/19/2010 724.2 LUMBAGO 08/19/2010 266.2 OTHER B- COMPLEX DEFICIENCIES 08/19/2010 272.4 OTHER AND UNSPECIFIED HYPERLIPIDEMIA 08/19/2010 338.29 OTHER CHRONIC PAIN 08/19/2010 401.9 UNSPECIFIED ESSENTIAL HYPERTENSION 08/19/2010 627.2 SYMPTOMATIC MENOPAUSAL OR FEMALE CLIMACTERIC STATES 08/19/2010 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 08/19/2010 724.2 LUMBAGO 08/19/2010 266.2 OTHER B- COMPLEX DEFICIENCIES 08/19/2010 272.4 OTHER AND UNSPECIFIED HYPERLIPIDEMIA 08/19/2010 338.29 OTHER CHRONIC PAIN 08/19/2010 401.9 UNSPECIFIED ESSENTIAL HYPERTENSION 08/19/2010 627.2 SYMPTOMATIC MENOPAUSAL OR FEMALE CLIMACTERIC STATES 08/19/2010 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 08/19/2010 724.2 LUMBAGO 08/19/2010 266.2 OTHER B- COMPLEX DEFICIENCIES 08/19/2010 272.4 OTHER AND UNSPECIFIED HYPERLIPIDEMIA 08/19/2010 338.29 OTHER CHRONIC PAIN 08/19/2010 401.9 UNSPECIFIED ESSENTIAL HYPERTENSION 08/19/2010 627.2 SYMPTOMATIC MENOPAUSAL OR FEMALE CLIMACTERIC STATES 08/19/2010 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 08/19/2010 724.2 LUMBAGO 08/19/2010 HUEY INSTRUMENT DESIGNER, ARETHA S 266.2 OTHER B-COMPLEX DEFICIENCIES 08/19/2010 HUEY INSTRUMENT DESIGNER, ARETHA S 272.4 OTHER AND UNSPECIFIED HYPERLIPIDEMIA 08/19/2010 HUEY INSTRUMENT DESIGNER, ARETHA S 338.29 OTHER CHRONIC PAIN 08/19/2010 HUEY INSTRUMENT DESIGNER, ARETHA S 401.9 UNSPECIFIED ESSENTIAL HYPERTENSION 08/19/2010 HUEY INSTRUMENT DESIGNER, ARETHA S 627.2 SYMPTOMATIC MENOPAUSAL OR FEMALE CLIMACTERIC STATES 08/19/2010 HUEY INSTRUMENT DESIGNER, ARETHA S 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 08/19/2010 HUEY INSTRUMENT DESIGNER, ARETHA S 724.2 LUMBAGO 08/19/2010 HUEY INSTRUMENT DESIGNER, ARETHA S 266.2 OTHER B-COMPLEX DEFICIENCIES 08/19/2010 HUEY INSTRUMENT DESIGNER, ARETHA S 272.4 OTHER AND UNSPECIFIED HYPERLIPIDEMIA 08/19/2010 HUEY INSTRUMENT DESIGNER, ARETHA S 338.29 OTHER CHRONIC PAIN 08/19/2010 HUEY INSTRUMENT DESIGNER, ARETHA S 401.9 UNSPECIFIED ESSENTIAL HYPERTENSION 08/19/2010 HUEY INSTRUMENT DESIGNER, ARETHA S 627.2 SYMPTOMATIC MENOPAUSAL OR FEMALE CLIMACTERIC STATES 08/19/2010 HUEY BALLARD, ARETHA S 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 08/19/2010 LIZZY ARZATE APRNNDA S 724.2 LUMBAGO 08/19/2010 LIZZY ARZATE APRNNDA S 266.2 OTHER B-COMPLEX DEFICIENCIES 08/19/2010 LIZZY ARZATE APRNNDA S 272.4 OTHER AND UNSPECIFIED HYPERLIPIDEMIA 08/19/2010 LIZZY ARZATE APRNNDA S 338.29 OTHER CHRONIC PAIN 08/19/2010 LIZZY ARZATE APRNNDA S 401.9 UNSPECIFIED ESSENTIAL HYPERTENSION 08/19/2010 LIZZY ARZATE APRNNDA S 627.2 SYMPTOMATIC MENOPAUSAL OR FEMALE CLIMACTERIC STATES 08/19/2010 LIZZY ARZATE APRNNDA S 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 08/19/2010 LIZZY ARZATE APRNNDA S 724.2 LUMBAGO 09/02/2010 ROSITA PACHECO MD 268.9 UNSPECIFIED VITAMIN D DEFICIENCY 09/02/2010 HUEY BALLARD ARETHA S 268.9 UNSPECIFIED VITAMIN D DEFICIENCY 09/02/2010 268.9 UNSPECIFIED VITAMIN D DEFICIENCY 09/02/2010 GABRIELLE PANCHAL DO 268.9 UNSPECIFIED VITAMIN D DEFICIENCY 09/02/2010 268.9 UNSPECIFIED VITAMIN D DEFICIENCY 09/02/2010 268.9 UNSPECIFIED VITAMIN D DEFICIENCY 09/02/2010 268.9 UNSPECIFIED VITAMIN D DEFICIENCY 09/02/2010 268.9 UNSPECIFIED VITAMIN D DEFICIENCY 09/02/2010 268.9 UNSPECIFIED VITAMIN D DEFICIENCY 09/02/2010 LIZZY ARZATE APRNNDA S 268.9 UNSPECIFIED VITAMIN D DEFICIENCY 09/02/2010 LIZZY ARZATE APRNNDA S 268.9 UNSPECIFIED VITAMIN D DEFICIENCY 09/02/2010 LIZZY ARZATE APRNNDA S 268.9 UNSPECIFIED VITAMIN D DEFICIENCY 09/30/2010 ROSITA PACHECO MD 692.89 Contact Dermatitis And Other Eczema Due To Other Specified Agents 09/30/2010 ROSITA PACHECO MD 209.9 Unspecified Disorder Of Skin And Subcutaneous Tissue 09/30/2010 ARETHA ARZATE APRN S 692.89 Contact Dermatitis And Other Eczema Due To Other Specified Agents 09/30/2010 HUEY INSTRUMENT DESIGNER, ARETHA S 709.9 Unspecified Disorder Of Skin And Subcutaneous Tissue 09/30/2010 692.89 Contact Dermatitis And Other Eczema Due To Other Specified Agents 09/30/2010 709.9 Unspecified Disorder Of Skin And Subcutaneous Tissue 09/30/2010 GABRIELLE PANCHAL DO K 692.89 Contact Dermatitis And Other Eczema Due To Other Specified Agents 09/30/2010 GABRIELLE PANCHAL DO K 709.9 Unspecified Disorder Of Skin And Subcutaneous Tissue 09/30/2010 692.89 Contact Dermatitis And Other Eczema Due To Other Specified Agents 09/30/2010 709.9 Unspecified Disorder Of Skin And Subcutaneous Tissue 09/30/2010 692.89 Contact Dermatitis And Other Eczema Due To Other Specified Agents 09/30/2010 709.9 Unspecified Disorder Of Skin And Subcutaneous Tissue 09/30/2010 692.89 Contact Dermatitis And Other Eczema Due To Other Specified Agents 09/30/2010 709.9 Unspecified Disorder Of Skin And Subcutaneous Tissue 09/30/2010 692.89 Contact Dermatitis And Other Eczema Due To Other Specified Agents 09/30/2010 709.9 Unspecified Disorder Of Skin And Subcutaneous Tissue 09/30/2010 692.89 Contact Dermatitis And Other Eczema Due To Other Specified Agents 09/30/2010 709.9 Unspecified Disorder Of Skin And Subcutaneous Tissue 09/30/2010 LIZZY ARZATE APRNNDA S 692.89 Contact Dermatitis And Other Eczema Due To Other Specified Agents 09/30/2010 LIZZY ARZATE APRNNDA S 709.9 Unspecified Disorder Of Skin And Subcutaneous Tissue 09/30/2010 HUEY BALLARD ARETHA S 692.89 Contact Dermatitis And Other Eczema Due To Other Specified Agents 09/30/2010 HUEY ABLLARD, ARETHA S 709.9 Unspecified Disorder Of Skin And Subcutaneous Tissue 09/30/2010 HUEY BALLARD ARETHA S 692.89 Contact Dermatitis And Other Eczema Due To Other Specified Agents 09/30/2010 HUEY BALLARD ARETHA S 709.9 Unspecified Disorder Of Skin And Subcutaneous Tissue 02/22/2011 ROSITA PACHECO MD 530.81 ESOPHAGEAL REFLUX 02/22/2011 ROSITA PACHECO MD 789.06 Abdominal Pain Epigastric 02/22/2011 HUEY INSTRUMENT DESIGNER, ARETHA S 530.81 ESOPHAGEAL REFLUX 02/22/2011 LIZZY ARZATE APRNNDA S 789.06 Abdominal Pain Epigastric 02/22/2011 530.81 ESOPHAGEAL REFLUX 02/22/2011 789.06 Abdominal Pain Epigastric 02/22/2011 PANCHAL DO GABRIELLE K 530.81 ESOPHAGEAL REFLUX 02/22/2011 PANCHAL DO, GABRIELLE K 789.06 Abdominal Pain Epigastric 02/22/2011 530.81 ESOPHAGEAL REFLUX 02/22/2011 789.06 Abdominal Pain Epigastric 02/22/2011 530.81 ESOPHAGEAL REFLUX 02/22/2011 789.06 Abdominal Pain Epigastric 02/22/2011 530.81 ESOPHAGEAL REFLUX 02/22/2011 789.06 Abdominal Pain Epigastric 02/22/2011 530.81 ESOPHAGEAL REFLUX 02/22/2011 789.06 Abdominal Pain Epigastric 02/22/2011 530.81 ESOPHAGEAL REFLUX 02/22/2011 789.06 Abdominal Pain Epigastric 02/22/2011 HUEY BALLARD ARETHA S 530.81 ESOPHAGEAL REFLUX 02/22/2011 LIZZY ARZATE APRNNDA S 789.06 Abdominal Pain Epigastric 02/22/2011 LIZZY ARZATE APRNNDA S 530.81 ESOPHAGEAL REFLUX 02/22/2011 LIZZY ARZATE APRNNDA S 789.06 Abdominal Pain Epigastric 02/22/2011 HUEY BALLARD ARETHA S 530.81 ESOPHAGEAL REFLUX 02/22/2011 LIZZY ARZATE APRNNDA S 789.06 Abdominal Pain Epigastric 03/23/2011 Ot 715.33 03/23/2011 Ot 924.8 03/23/2011 Ot 959.7 03/23/2011 Ot E000.8 03/23/2011 Ot E001.0 03/23/2011 Ot E849.0 03/23/2011 Ot E885.9 03/23/2011 Ot V43.65 03/27/2011 Ot 780.2 03/27/2011 Ot V58.69 05/12/2011 ROSITA PACHECO MD 780.79 OTHER MALAISE AND FATIGUE 05/12/2011 ROSITA PACHECO MD 782.3 EDEMA 05/12/2011 ROSITA PACHECO MD 782.7 SPONTANEOUS ECCHYMOSES 05/12/2011 ROSITA PACHECO MD 783.1 ABNORMAL WEIGHT GAIN 05/12/2011 JUNIOR COLLINS, ROSITA 786.05 SHORTNESS OF BREATH 05/12/2011 ARETHA ARZATE APRN S 780.79 OTHER MALAISE AND FATIGUE 05/12/2011 ARETHA ARZATE APRN S 782.3 EDEMA 05/12/2011 ARETHA ARZATE APRN S 782.7 SPONTANEOUS ECCHYMOSES 05/12/2011 ARETHA ARZATE APRN S 783.1 ABNORMAL WEIGHT GAIN 05/12/2011 ARETHA ARZATE APRN S 786.05 SHORTNESS OF BREATH 05/12/2011 780.79 OTHER MALAISE AND FATIGUE 05/12/2011 782.3 EDEMA 05/12/2011 782.7 SPONTANEOUS ECCHYMOSES 05/12/2011 783.1 ABNORMAL WEIGHT GAIN 05/12/2011 786.05 SHORTNESS OF BREATH 05/12/2011 PANCHAL DO, GABRIELLE K 780.79 OTHER MALAISE AND FATIGUE 05/12/2011 PANCHAL DO, GABRIELLE K 782.3 EDEMA 05/12/2011 PANCHAL DO, GABRIELLE K 782.7 SPONTANEOUS ECCHYMOSES 05/12/2011 PANCHAL DO, GABRIELLE K 783.1 ABNORMAL WEIGHT GAIN 05/12/2011 PANCHAL DO GABRIELLE K 786.05 SHORTNESS OF BREATH 05/12/2011 780.79 OTHER MALAISE AND FATIGUE 05/12/2011 782.3 EDEMA 05/12/2011 782.7 SPONTANEOUS ECCHYMOSES 05/12/2011 783.1 ABNORMAL WEIGHT GAIN 05/12/2011 786.05 SHORTNESS OF BREATH 05/12/2011 780.79 OTHER MALAISE AND FATIGUE 05/12/2011 782.3 EDEMA 05/12/2011 782.7 SPONTANEOUS ECCHYMOSES 05/12/2011 783.1 ABNORMAL WEIGHT GAIN 05/12/2011 786.05 SHORTNESS OF BREATH 05/12/2011 780.79 OTHER MALAISE AND FATIGUE 05/12/2011 782.3 EDEMA 05/12/2011 782.7 SPONTANEOUS ECCHYMOSES 05/12/2011 783.1 ABNORMAL WEIGHT GAIN 05/12/2011 786.05 SHORTNESS OF BREATH 05/12/2011 780.79 OTHER MALAISE AND FATIGUE 05/12/2011 782.3 EDEMA 05/12/2011 782.7 SPONTANEOUS ECCHYMOSES 05/12/2011 783.1 ABNORMAL WEIGHT GAIN 05/12/2011 786.05 SHORTNESS OF BREATH 05/12/2011 780.79 OTHER MALAISE AND FATIGUE 05/12/2011 782.3 EDEMA 05/12/2011 782.7 SPONTANEOUS ECCHYMOSES 05/12/2011 783.1 ABNORMAL WEIGHT GAIN 05/12/2011 786.05 SHORTNESS OF BREATH 05/12/2011 LIZZY ARZATE APRNNDA S 780.79 OTHER MALAISE AND FATIGUE 05/12/2011 HUEY BALLARD, ARETHA S 782.3 EDEMA 05/12/2011 LIZZY ARZATE APRNNDA S 782.7 SPONTANEOUS ECCHYMOSES 05/12/2011 LIZZY ARZATE APRNNDA S 783.1 ABNORMAL WEIGHT GAIN 05/12/2011 LIZZY ARZATE APRNNDA S 786.05 SHORTNESS OF BREATH 05/12/2011 LIZZY ARZATE APRNNDA S 780.79 OTHER MALAISE AND FATIGUE 05/12/2011 HUEY BALLARD, ARETHA S 782.3 EDEMA 05/12/2011 HUEY BALLARD, ARETHA S 782.7 SPONTANEOUS ECCHYMOSES 05/12/2011 LIZZY ARZATE APRNNDA S 783.1 ABNORMAL WEIGHT GAIN 05/12/2011 LIZZY ARZATE APRNNDA S 786.05 SHORTNESS OF BREATH 05/12/2011 LIZZY ARZATE APRNNDA S 780.79 OTHER MALAISE AND FATIGUE 05/12/2011 LIZZY ARZATE APRNNDA S 782.3 EDEMA 05/12/2011 LIZZY ARZATE APRNNDA S 782.7 SPONTANEOUS ECCHYMOSES 05/12/2011 LIZZY ARZATE APRNNDA S 783.1 ABNORMAL WEIGHT GAIN 05/12/2011 LIZZY ARZATE APRNNDA S 786.05 SHORTNESS OF BREATH 05/18/2011 ROSITA PACHECO MD 327.23 OBSTRUCTIVE SLEEP APNEA (ADULT) (PEDIATRIC) 05/18/2011 ARETHA ARZATE APRN S 327.23 OBSTRUCTIVE SLEEP APNEA (ADULT) (PEDIATRIC) 05/18/2011 327.23 OBSTRUCTIVE SLEEP APNEA (ADULT) (PEDIATRIC) 05/18/2011 PANCHAL DO GABRIELLE K 327.23 OBSTRUCTIVE SLEEP APNEA (ADULT) (PEDIATRIC) 05/18/2011 327.23 OBSTRUCTIVE SLEEP APNEA (ADULT) (PEDIATRIC) 05/18/2011 327.23 OBSTRUCTIVE SLEEP APNEA (ADULT) (PEDIATRIC) 05/18/2011 327.23 OBSTRUCTIVE SLEEP APNEA (ADULT) (PEDIATRIC) 05/18/2011 327.23 OBSTRUCTIVE SLEEP APNEA (ADULT) (PEDIATRIC) 05/18/2011 327.23 OBSTRUCTIVE SLEEP APNEA (ADULT) (PEDIATRIC) 05/18/2011 LIZZY ARZATE APRNNDA S 327.23 OBSTRUCTIVE SLEEP APNEA (ADULT) (PEDIATRIC) 05/18/2011 LIZZY ARZATE APRNNDA S 327.23 OBSTRUCTIVE SLEEP APNEA (ADULT) (PEDIATRIC) 05/18/2011 LIZZY ARZATE APRNNDA S 327.23 OBSTRUCTIVE SLEEP APNEA (ADULT) (PEDIATRIC) 07/07/2011 Ot 278.01 07/07/2011 Ot 401.9 07/07/2011 Ot 780.59 07/07/2011 Ot 786.09 07/07/2011 Ot V85.42 09/05/2011 Ot 729.5 09/05/2011 Ot 782.3 10/10/2011 ROSITA PACHECO MD 300.00 ANXIETY STATE UNSPECIFIED 10/10/2011 ROSITA PACHECO MD 780.93 MEMORY LOSS 10/10/2011 ROSITA PACHECO MD 781.2 ABNORMALITY OF GAIT 10/10/2011 ARETHA ARZATE APRN S 300.00 ANXIETY STATE UNSPECIFIED 10/10/2011 ARETHA ARZATE APRN S 780.93 MEMORY LOSS 10/10/2011 ARETHA ARZATE APRN S 781.2 ABNORMALITY OF GAIT 10/10/2011 300.00 ANXIETY STATE UNSPECIFIED 10/10/2011 780.93 MEMORY LOSS 10/10/2011 781.2 ABNORMALITY OF GAIT 10/10/2011 PANCHAL DO GABRIELLE K 300.00 ANXIETY STATE UNSPECIFIED 10/10/2011 PANCHAL DO GABRIELLE K 780.93 MEMORY LOSS 10/10/2011 PANCHAL DO GABRIELLE K 781.2 ABNORMALITY OF GAIT 10/10/2011 300.00 ANXIETY STATE UNSPECIFIED 10/10/2011 780.93 MEMORY LOSS 10/10/2011 781.2 ABNORMALITY OF GAIT 10/10/2011 300.00 ANXIETY STATE UNSPECIFIED 10/10/2011 780.93 MEMORY LOSS 10/10/2011 781.2 ABNORMALITY OF GAIT 10/10/2011 300.00 ANXIETY STATE UNSPECIFIED 10/10/2011 780.93 MEMORY LOSS 10/10/2011 781.2 ABNORMALITY OF GAIT 10/10/2011 300.00 ANXIETY STATE UNSPECIFIED 10/10/2011 780.93 MEMORY LOSS 10/10/2011 781.2 ABNORMALITY OF GAIT 10/10/2011 300.00 ANXIETY STATE UNSPECIFIED 10/10/2011 780.93 MEMORY LOSS 10/10/2011 781.2 ABNORMALITY OF GAIT 10/10/2011 HUEY INSTRUMENT DESIGNER, ARETHA S 300.00 ANXIETY STATE UNSPECIFIED 10/10/2011 HUEY INSTRUMENT DESIGNER, ARETHA S 780.93 MEMORY LOSS 10/10/2011 HUEY INSTRUMENT DESIGNER, ARETHA S 781.2 ABNORMALITY OF GAIT 10/10/2011 HUEY INSTRUMENT DESIGNER, ARETHA S 300.00 ANXIETY STATE UNSPECIFIED 10/10/2011 HUEY INSTRUMENT DESIGNER, ARETHA S 780.93 MEMORY LOSS 10/10/2011 HUEY INSTRUMENT DESIGNER, ARETHA S 781.2 ABNORMALITY OF GAIT 10/10/2011 HUEY INSTRUMENT DESIGNER, ARETHA S 300.00 ANXIETY STATE UNSPECIFIED 10/10/2011 HUEY INSTRUMENT DESIGNER, ARETHA S 780.93 MEMORY LOSS 10/10/2011 HUEY INSTRUMENT DESIGNER, ARETHA S 781.2 ABNORMALITY OF GAIT 10/11/2011 ROSITA PACHECO MD 288.60 Leukocytosis 10/11/2011 ROSITA PACHECO MD 288.66 Bandemia 10/11/2011 ROSITA PACHECO MD 786.09 RESPIRATORY ABNORMALITY OTHER 10/11/2011 HUEY INSTRUMENT DESIGNER, ARETHA S 288.60 Leukocytosis 10/11/2011 HUEY INSTRUMENT DESIGNER, ARETHA S 288.66 Bandemia 10/11/2011 HUEY BALLARD ARETHA S 786.09 RESPIRATORY ABNORMALITY OTHER 10/11/2011 288.60 Leukocytosis 10/11/2011 288.66 Bandemia 10/11/2011 786.09 RESPIRATORY ABNORMALITY OTHER 10/11/2011 PANCHAL DO, GABRIELLE K 288.60 Leukocytosis 10/11/2011 PANCHAL DO, GABRIELLE K 288.66 Bandemia 10/11/2011 PANCHAL DO, GABRIELLE K 786.09 RESPIRATORY ABNORMALITY OTHER 10/11/2011 288.60 Leukocytosis 10/11/2011 288.66 Bandemia 10/11/2011 786.09 RESPIRATORY ABNORMALITY OTHER 10/11/2011 288.60 Leukocytosis 10/11/2011 288.66 Bandemia 10/11/2011 786.09 RESPIRATORY ABNORMALITY OTHER 10/11/2011 288.60 Leukocytosis 10/11/2011 288.66 Bandemia 10/11/2011 786.09 RESPIRATORY ABNORMALITY OTHER 10/11/2011 288.60 Leukocytosis 10/11/2011 288.66 Bandemia 10/11/2011 786.09 RESPIRATORY ABNORMALITY OTHER 10/11/2011 288.60 Leukocytosis 10/11/2011 288.66 Bandemia 10/11/2011 786.09 RESPIRATORY ABNORMALITY OTHER 10/11/2011 HUEY INSTRUMENT DESIGNER, ARETHA S 288.60 Leukocytosis 10/11/2011 HUEY INSTRUMENT DESIGNER, ARETHA S 288.66 Bandemia 10/11/2011 HUEY INSTRUMENT DESIGNER, ARETHA S 786.09 RESPIRATORY ABNORMALITY OTHER 10/11/2011 HUEY INSTRUMENT DESIGNER, ARETHA S 288.60 Leukocytosis 10/11/2011 HUEY INSTRUMENT DESIGNER, ARETHA S 288.66 Bandemia 10/11/2011 HUEY INSTRUMENT DESIGNER, ARETHA S 786.09 RESPIRATORY ABNORMALITY OTHER 10/11/2011 HUEY INSTRUMENT DESIGNER, ARETHA S 288.60 Leukocytosis 10/11/2011 HUEY INSTRUMENT DESIGNER, ARETHA S 288.66 Bandemia 10/11/2011 HUEY INSTRUMENT DESIGNER, ARETHA S 786.09 RESPIRATORY ABNORMALITY OTHER 10/25/2011 ROSITA PACHECO MD 458.9 Hypotension Unspecified 10/25/2011 ROSITA PACHECO MD 780.1 Hallucinations 10/25/2011 HUEY CHINN, ARETHA S 458.9 Hypotension Unspecified 10/25/2011 HUEY BALLARD, ARETHA S 780.1 Hallucinations 10/25/2011 458.9 Hypotension Unspecified 10/25/2011 780.1 Hallucinations 10/25/2011 GABRIELLE PANCHAL DO K 458.9 Hypotension Unspecified 10/25/2011 GABRIELLE PANCHAL DO K 780.1 Hallucinations 10/25/2011 458.9 Hypotension Unspecified 10/25/2011 780.1 Hallucinations 10/25/2011 458.9 Hypotension Unspecified 10/25/2011 780.1 Hallucinations 10/25/2011 458.9 Hypotension Unspecified 10/25/2011 780.1 Hallucinations 10/25/2011 458.9 Hypotension Unspecified 10/25/2011 780.1 Hallucinations 10/25/2011 458.9 Hypotension Unspecified 10/25/2011 780.1 Hallucinations 10/25/2011 HUEY INSTRUMENT DESIGNER, ARETHA S 458.9 Hypotension Unspecified 10/25/2011 HUEY INSTRUMENT DESIGNER, ARETHA S 780.1 Hallucinations 10/25/2011 HUEY INSTRUMENT DESIGNER, ARETHA S 458.9 Hypotension Unspecified 10/25/2011 HUEY INSTRUMENT DESIGNER, ARETHA S 780.1 Hallucinations 10/25/2011 HUEY INSTRUMENT DESIGNER, ARETHA S 458.9 Hypotension Unspecified 10/25/2011 HUEY INSTRUMENT DESIGNER, ARETHA S 780.1 Hallucinations 2011 ROSITA PACHECO MD 593.9 UNSPECIFIED DISORDER OF KIDNEY AND URETER 2011 HUEY BALLARD ARETHA S 593.9 UNSPECIFIED DISORDER OF KIDNEY AND URETER 2011 593.9 UNSPECIFIED DISORDER OF KIDNEY AND URETER 2011 GABRIELLE PANCHAL DO 593.9 UNSPECIFIED DISORDER OF KIDNEY AND URETER 2011 593.9 UNSPECIFIED DISORDER OF KIDNEY AND URETER 2011 593.9 UNSPECIFIED DISORDER OF KIDNEY AND URETER 2011 593.9 UNSPECIFIED DISORDER OF KIDNEY AND URETER 2011 593.9 UNSPECIFIED DISORDER OF KIDNEY AND URETER 2011 593.9 UNSPECIFIED DISORDER OF KIDNEY AND URETER 2011 LIZZY ARZATE APRNNDA S 593.9 UNSPECIFIED DISORDER OF KIDNEY AND URETER 2011 HUEY BALLARD ARETHA S 593.9 UNSPECIFIED DISORDER OF KIDNEY AND URETER 2011 HUEY BALLARD ARETHA S 593.9 UNSPECIFIED DISORDER OF KIDNEY AND URETER 01/18/2012 Ot 250.00 01/18/2012 Ot 272.4 01/18/2012 Ot 428.0 01/18/2012 Ot 682.6 01/18/2012 Ot 782.3 01/18/2012 Ot 786.05 01/20/2012 ROSITA PACHECO MD 477.9 RHINITIS 01/20/2012 LIZZY ARZATE APRNNDA S 477.9 RHINITIS 01/20/2012 477.9 RHINITIS 01/20/2012 GABRIELLE PANCHAL DO 477.9 RHINITIS 01/20/2012 477.9 RHINITIS 01/20/2012 477.9 RHINITIS 01/20/2012 477.9 RHINITIS 01/20/2012 477.9 RHINITIS 01/20/2012 477.9 RHINITIS 01/20/2012 LIZZY ARZATE APRNNDA S 477.9 RHINITIS 01/20/2012 LIZZY ARZATE APRNNDA S 477.9 RHINITIS 01/20/2012 LIZZY ARZATE APRNNDA S 477.9 RHINITIS 05/30/2012 ROSITA PACHECO MD 719.41 PAIN IN JOINT INVOLVING SHOULDER REGION 05/30/2012 ROSITA PACHECO MD 729.5 PAIN IN LIMB 05/30/2012 JUMA ARZATE APRNA S 719.41 PAIN IN JOINT INVOLVING SHOULDER REGION 05/30/2012 ARETHA ARZATE APRN S 729.5 PAIN IN LIMB 05/30/2012 719.41 PAIN IN JOINT INVOLVING SHOULDER REGION 05/30/2012 729.5 PAIN IN LIMB 05/30/2012 GABRIELLE PANCHAL DO 719.41 PAIN IN JOINT INVOLVING SHOULDER REGION 05/30/2012 GABRIELLE PANCHAL DO 729.5 PAIN IN LIMB 05/30/2012 719.41 PAIN IN JOINT INVOLVING SHOULDER REGION 05/30/2012 729.5 PAIN IN LIMB 05/30/2012 719.41 PAIN IN JOINT INVOLVING SHOULDER REGION 05/30/2012 729.5 PAIN IN LIMB 05/30/2012 719.41 PAIN IN JOINT INVOLVING SHOULDER REGION 05/30/2012 729.5 PAIN IN LIMB 05/30/2012 719.41 PAIN IN JOINT INVOLVING SHOULDER REGION 05/30/2012 729.5 PAIN IN LIMB 05/30/2012 719.41 PAIN IN JOINT INVOLVING SHOULDER REGION 05/30/2012 729.5 PAIN IN LIMB 05/30/2012 JUMA ARZATE APRNA S 719.41 PAIN IN JOINT INVOLVING SHOULDER REGION 05/30/2012 JUMA ARZATE APRNA S 729.5 PAIN IN LIMB 05/30/2012 ARETHA ARZATE APRN S 719.41 PAIN IN JOINT INVOLVING SHOULDER REGION 05/30/2012 ARETHA ARZATE APRN S 729.5 PAIN IN LIMB 05/30/2012 ARETHA ARZATE APRN S 719.41 PAIN IN JOINT INVOLVING SHOULDER REGION 05/30/2012 ARETHA ARZATE APRN S 729.5 PAIN IN LIMB 08/02/2012 ROSITA PACHECO MD V18.0 FAMILY HISTORY OF DIABETES MELLITUS 08/02/2012 ARETHA ARZATE APRN S V18.0 FAMILY HISTORY OF DIABETES MELLITUS 08/02/2012 V18.0 FAMILY HISTORY OF DIABETES MELLITUS 08/02/2012 GABRIELLE PANCHAL DO V18.0 FAMILY HISTORY OF DIABETES MELLITUS 08/02/2012 V18.0 FAMILY HISTORY OF DIABETES MELLITUS 08/02/2012 V18.0 FAMILY HISTORY OF DIABETES MELLITUS 08/02/2012 V18.0 FAMILY HISTORY OF DIABETES MELLITUS 08/02/2012 V18.0 FAMILY HISTORY OF DIABETES MELLITUS 08/02/2012 V18.0 FAMILY HISTORY OF DIABETES MELLITUS 08/02/2012 ARETHA ARZATE APRN S V18.0 FAMILY HISTORY OF DIABETES MELLITUS 08/02/2012 ARETHA ARZATE APRN S V18.0 FAMILY HISTORY OF DIABETES MELLITUS 08/02/2012 ARETHA ARZATE APRN S V18.0 FAMILY HISTORY OF DIABETES MELLITUS 09/03/2012 ROSITA PACHECO MD 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 09/03/2012 ROSITA PACHECO MD V03.82 PPV23 (PNEUMOVAX) DX 09/03/2012 ARETHA ARZATE APRN S 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 09/03/2012 ARETHA ARZATE APRN V03.82 PPV23 (PNEUMOVAX) DX 09/03/2012 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 09/03/2012 V03.82 PPV23 ( PNEUMOVAX) DX 09/03/2012 GABRIELLE PANCHAL DO 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 09/03/2012 GABRIELLE PANCHAL DO V03.82 PPV23 (PNEUMOVAX) DX 09/03/2012 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 09/03/2012 V03.82 PPV23 ( PNEUMOVAX) DX 09/03/2012 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 09/03/2012 V03.82 PPV23 ( PNEUMOVAX) DX 09/03/2012 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 09/03/2012 V03.82 PPV23 ( PNEUMOVAX) DX 09/03/2012 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 09/03/2012 V03.82 PPV23 ( PNEUMOVAX) DX 09/03/2012 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 09/03/2012 V03.82 PPV23 ( PNEUMOVAX) DX 09/03/2012 ARETHA ARZATE APRN 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 09/03/2012 ARETHA ARZATE APRN S V03.82 PPV23 (PNEUMOVAX) DX 09/03/2012 ARETHA ARZATE APRN S 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 09/03/2012 ARETHA ARZATE APRN S V03.82 PPV23 (PNEUMOVAX) DX 09/03/2012 ARETHA ARZATE APRN 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 09/03/2012 ARETHA ARZATE APRN S V03.82 PPV23 (PNEUMOVAX) DX 09/18/2012 Ot 272.4 09/18/2012 Ot 338.21 09/18/2012 Ot 401.9 09/18/2012 Ot 486 09/18/2012 Ot 491.21 09/18/2012 Ot 584.9 09/18/2012 Ot 789.02 09/18/2012 Ot 790.29 09/18/2012 Ot V15.82 09/18/2012 Ot V43.65 09/18/2012 Ot V45.86 09/20/2012 ROSITA PACHECO MD 482.39 PNEUMONIA DUE TO OTHER STREPTOCOCCUS 09/20/2012 ROSITA PACHECO MD 719.46 PAIN IN JOINT INVOLVING LOWER LEG 09/20/2012 ARETHA ARZATE APRN 482.39 PNEUMONIA DUE TO OTHER STREPTOCOCCUS 09/20/2012 ARETHA ARZATE APRN 719.46 PAIN IN JOINT INVOLVING LOWER LEG 09/20/2012 482.39 PNEUMONIA DUE TO OTHER STREPTOCOCCUS 09/20/2012 719.46 PAIN IN JOINT INVOLVING LOWER LEG 09/20/2012 PANCHAL DO, GABRIELLE K 482.39 PNEUMONIA DUE TO OTHER STREPTOCOCCUS 09/20/2012 GABRIELLE PANCHAL DO 719.46 PAIN IN JOINT INVOLVING LOWER LEG 09/20/2012 482.39 PNEUMONIA DUE TO OTHER STREPTOCOCCUS 09/20/2012 719.46 PAIN IN JOINT INVOLVING LOWER LEG 09/20/2012 482.39 PNEUMONIA DUE TO OTHER STREPTOCOCCUS 09/20/2012 719.46 PAIN IN JOINT INVOLVING LOWER LEG 09/20/2012 482.39 PNEUMONIA DUE TO OTHER STREPTOCOCCUS 09/20/2012 719.46 PAIN IN JOINT INVOLVING LOWER LEG 09/20/2012 482.39 PNEUMONIA DUE TO OTHER STREPTOCOCCUS 09/20/2012 719.46 PAIN IN JOINT INVOLVING LOWER LEG 09/20/2012 482.39 PNEUMONIA DUE TO OTHER STREPTOCOCCUS 09/20/2012 719.46 PAIN IN JOINT INVOLVING LOWER LEG 09/20/2012 JUMA ARZATE APRNA S 482.39 PNEUMONIA DUE TO OTHER STREPTOCOCCUS 09/20/2012 LIZZY ARZATE APRNNDA S 719.46 PAIN IN JOINT INVOLVING LOWER LEG 09/20/2012 JUMA ARZATE APRNA S 482.39 PNEUMONIA DUE TO OTHER STREPTOCOCCUS 09/20/2012 LIZZY ARZATE APRNNDA S 719.46 PAIN IN JOINT INVOLVING LOWER LEG 09/20/2012 LIZZY ARZATE APRNNDA S 482.39 PNEUMONIA DUE TO OTHER STREPTOCOCCUS 09/20/2012 LIZZY ARZATE APRNNDA S 719.46 PAIN IN JOINT INVOLVING LOWER LEG 10/29/2012 ARETHA ARZATE APRN S 780.8 GENERALIZED HYPERHIDROSIS 10/29/2012 780.8 GENERALIZED HYPERHIDROSIS 10/29/2012 GABRIELLE PANCHAL DO 780.8 GENERALIZED HYPERHIDROSIS 10/29/2012 780.8 GENERALIZED HYPERHIDROSIS 10/29/2012 780.8 GENERALIZED HYPERHIDROSIS 10/29/2012 780.8 GENERALIZED HYPERHIDROSIS 10/29/2012 780.8 GENERALIZED HYPERHIDROSIS 10/29/2012 780.8 GENERALIZED HYPERHIDROSIS 10/29/2012 ARETHA ARZATE APRN S 780.8 GENERALIZED HYPERHIDROSIS 10/29/2012 ARETHA ARZATE APRN S 780.8 GENERALIZED HYPERHIDROSIS 11/29/2012 V72.31 CASE INVESTIGATOR EXAM, ROUTINE 11/29/2012 V76.10 BREAST CANCER SCREENING 11/29/2012 ANSLEY DRUMMOND GABRIELLE Kidd V72.31 CASE INVESTIGATOR EXAM, ROUTINE 11/29/2012 ANSLEY DRUMMOND GABRIELLE Kidd V76.10 BREAST CANCER SCREENING 11/29/2012 V72.31 CASE INVESTIGATOR EXAM, ROUTINE 11/29/2012 V76.10 BREAST CANCER SCREENING 11/29/2012 V72.31 CASE INVESTIGATOR EXAM, ROUTINE 11/29/2012 V76.10 BREAST CANCER SCREENING 11/29/2012 V72.31 CASE INVESTIGATOR EXAM, ROUTINE 11/29/2012 V76.10 BREAST CANCER SCREENING 11/29/2012 V72.31 CASE INVESTIGATOR EXAM, ROUTINE 11/29/2012 V76.10 BREAST CANCER SCREENING 11/29/2012 V72.31 CASE INVESTIGATOR EXAM, ROUTINE 11/29/2012 V76.10 BREAST CANCER SCREENING 11/29/2012 ARETHA ARZATE APRN S V72.31 CASE INVESTIGATOR EXAM, ROUTINE 11/29/2012 LIZZY ARZATE APRNNDA S V76.10 BREAST CANCER SCREENING 11/29/2012 ARETHA ARZATE APRN S V72.31 CASE INVESTIGATOR EXAM, ROUTINE 11/29/2012 LIZZY ARZATE APRNNDA S V76.10 BREAST CANCER SCREENING 12/05/2012 GABRIELLE PANCHAL DO 813.00 CLOSED FRACTURE OF UPPER END OF FOREARM UNSPECIFIED 12/05/2012 813.00 CLOSED FRACTURE OF UPPER END OF FOREARM UNSPECIFIED 12/05/2012 813.00 CLOSED FRACTURE OF UPPER END OF FOREARM UNSPECIFIED 12/05/2012 813.00 CLOSED FRACTURE OF UPPER END OF FOREARM UNSPECIFIED 12/05/2012 813.00 CLOSED FRACTURE OF UPPER END OF FOREARM UNSPECIFIED 12/05/2012 813.00 CLOSED FRACTURE OF UPPER END OF FOREARM UNSPECIFIED 12/05/2012 ARETHA ARZATE APRN S 813.00 CLOSED FRACTURE OF UPPER END OF FOREARM UNSPECIFIED 12/05/2012 ARETHA ARZATE APRN S 813.00 CLOSED FRACTURE OF UPPER END OF FOREARM UNSPECIFIED 12/05/2012 Ot 922.1 12/05/2012 Ot 923.11 12/05/2012 Ot 959.11 12/05/2012 Ot E000.8 12/05/2012 Ot E849.0 12/05/2012 Ot E885.9 12/05/2012 Ot V06.1 12/13/2012 GABRIELLE PANCHAL DO 959.3 OTHER AND UNSPECIFIED INJURY TO ELBOW FOREARM AND WRIST 12/13/2012 959.3 OTHER AND UNSPECIFIED INJURY TO ELBOW FOREARM AND WRIST 12/13/2012 959.3 OTHER AND UNSPECIFIED INJURY TO ELBOW FOREARM AND WRIST 12/13/2012 959.3 OTHER AND UNSPECIFIED INJURY TO ELBOW FOREARM AND WRIST 12/13/2012 959.3 OTHER AND UNSPECIFIED INJURY TO ELBOW FOREARM AND WRIST 12/13/2012 959.3 OTHER AND UNSPECIFIED INJURY TO ELBOW FOREARM AND WRIST 12/13/2012 ARETHA ARZATE APRN 959.3 OTHER AND UNSPECIFIED INJURY TO ELBOW FOREARM AND WRIST 12/13/2012 ARETHA ARZATE APRN 959.3 OTHER AND UNSPECIFIED INJURY TO ELBOW FOREARM AND WRIST 12/19/2012 Ot 298.9 12/19/2012 Ot 719.45 12/19/2012 Ot 729.5 12/19/2012 Ot 780.1 12/19/2012 Ot 780.4 12/19/2012 Ot 786.6 12/19/2012 Ot E000.8 12/19/2012 Ot E849.0 12/19/2012 Ot E888.9 01/24/2013 729.1 MYALGIA AND MYOSITIS UNSPECIFIED 01/24/2013 729.1 MYALGIA AND MYOSITIS UNSPECIFIED 01/24/2013 729.1 MYALGIA AND MYOSITIS UNSPECIFIED 01/24/2013 729.1 MYALGIA AND MYOSITIS UNSPECIFIED 01/24/2013 ARETHA ARZATE APRN 729.1 MYALGIA AND MYOSITIS UNSPECIFIED 01/24/2013 ARETHA ARZATE APRN 729.1 MYALGIA AND MYOSITIS UNSPECIFIED 02/07/2013 726.10 DISORDERS OF BURSAE AND TENDONS IN SHOULDER REGION UNSPECIFIED 02/07/2013 726.10 DISORDERS OF BURSAE AND TENDONS IN SHOULDER REGION UNSPECIFIED 02/07/2013 726.10 DISORDERS OF BURSAE AND TENDONS IN SHOULDER REGION UNSPECIFIED 02/07/2013 726.10 DISORDERS OF BURSAE AND TENDONS IN SHOULDER REGION UNSPECIFIED 02/07/2013 ARETHA ARZATE APRN 726.10 DISORDERS OF BURSAE AND TENDONS IN SHOULDER REGION UNSPECIFIED 02/07/2013 ARETHA ARZATE APRN S 726.10 DISORDERS OF BURSAE AND TENDONS IN SHOULDER REGION UNSPECIFIED 02/25/2013 729.82 CRAMP OF LIMB 02/25/2013 729.82 CRAMP OF LIMB 02/25/2013 729.82 CRAMP OF LIMB 02/25/2013 ARETHA ARZATE APRN S 729.82 CRAMP OF LIMB 02/25/2013 ARETHA ARZATE APRN S 729.82 CRAMP OF LIMB 05/01/2013 KEV PEREZ CHEMICAL EQUIPMENT CONTROLLER Ot 726.2 05/01/2013 KEV PEREZ CHEMICAL EQUIPMENT CONTROLLER Ot 726.32 05/01/2013 KEV PEREZ CHEMICAL EQUIPMENT CONTROLLER Ot V57.1 07/01/2013 GWEN COLLINS, MATT D Ot 724.5 07/01/2013 GWEN COLLINS, MATT D Ot 780.2 07/01/2013 GWEN COLLINS, MATT D Ot 786.50 07/01/2013 GWEN COLLINS, MATT D Ot 920 07/01/2013 GWEN COLLINS, MATT D Ot E000.8 07/01/2013 GWEN COLLINS, MATT D Ot E849.0 07/01/2013 GWEN COLLINS, MATT D Ot E884.2 07/03/2013 ARETHA ARZATE APRN S V04.81 FLU SHOT 07/03/2013 ARETHA ARZATE APRN S V04.81 FLU SHOT 03/15/2014 JANAKDER DO, ANOOP A Ot 272.4 03/15/2014 GELLENDER DO, ANOOP A Ot 356.9 03/15/2014 GELLENDER DO, ANOOP A Ot 402.90 03/15/2014 GELLENDER DO, ANOOP A Ot 414.01 03/15/2014 GELLENDER DO, ANOOP A Ot 496 03/15/2014 GELLENDER DO, ANOOP A Ot 564.00 03/15/2014 GELLENDER DO, ANOOP A Ot 715.90 03/15/2014 GELLENDER DO, ANOOP A Ot 719.40 03/15/2014 GELLENDER DO, ANOOP A Ot 724.5 03/15/2014 GELLENDER DO, ANOOP A Ot 733.6 03/15/2014 RUBEN DOANOOP A Ot 782.3 03/15/2014 GELKATHRYN DOANOOP A Ot 785.1 03/15/2014 RUBEN DOANOOP A Ot 786.09 04/11/2014 LAMBERT DOFRANCY Ot 272.0 04/11/2014 LAMBERT DO, FRANCY D Ot 278.00 04/11/2014 LAMBERT DO, FRANCY D Ot 300.00 04/11/2014 LAMBERT DO, FRANCY D Ot 311 04/11/2014 LAMBERT DO, FRANCY D Ot 338.29 04/11/2014 LAMBERT DO, FRANCY D Ot 401.9 04/11/2014 LAMBERT DO, FRANCY D Ot 496 04/11/2014 LAMBERT DO, FRANCY D Ot 573.3 04/11/2014 LAMBERT DO, FRANCY D Ot 724.00 04/11/2014 LAMBERT DO, FRANCY D Ot 724.2 04/11/2014 LAMBERT DO, FRANCY D Ot 724.8 04/11/2014 LAMBERT DO, FRANCY D Ot 729.82 04/11/2014 LAMBERT DO, RFANCY D Ot V12.54 04/11/2014 LAMBERT DO, FRANCY D Ot V15.88 04/11/2014 LMABERT DOFRANCY D Ot V58.66 04/11/2014 LAMBERT DO, FRANCY D Ot V58.69 08/06/2014 LADONNA GALLARDO MD Ot 455.0 08/06/2014 LADONNA GALLARDO MD Ot 455.3 08/06/2014 LADONNA GALLARDO MD Ot 562.10 09/16/2014 STACY LOWE CHEMICAL EQUIPMENT CONTROLLER Ot 719.47 09/16/2014 STACY LOWE CHEMICAL EQUIPMENT CONTROLLER Ot 724.5 09/16/2014 STACY LOWE CHEMICAL EQUIPMENT CONTROLLER Ot V57.1 10/14/2014 LAMBERT DOFRANCY D Ot 338.29 10/14/2014 LAMBERT DO, FRANCY D Ot 496 10/14/2014 LAMBERT DO, FRANCY D Ot 780.79 10/14/2014 LAMBERT DO, FRANCY D Ot V58.69 12/15/2014 Ot 611.72 12/15/2014 Ot V76.12 12/15/2014 Ot 793.80 12/15/2014 Ot 793.80 12/15/2014 Ot 338.29 12/15/2014 Ot 724.2 12/15/2014 Ot 786.05 12/15/2014 Ot 780.93 12/15/2014 Ot 781.2 12/15/2014 Ot 331.9 12/15/2014 Ot 780.93 12/15/2014 Ot 781.2 12/15/2014 STACY LOWE CHEMICAL EQUIPMENT CONTROLLER Ot 719.47 12/15/2014 STACY LOWE CHEMICAL EQUIPMENT CONTROLLER Ot 722.52 12/15/2014 STACY LOWE CHEMICAL EQUIPMENT CONTROLLER Ot 736.70 12/15/2014 STACY LOWE CHEMICAL EQUIPMENT CONTROLLER Ot 737.30 12/15/2014 STACY LOWE CHEMICAL EQUIPMENT CONTROLLER Ot 756.12 12/15/2014 ARETHA ARZATE CHEMICAL EQUIPMENT CONTROLLER Ot 611.71 12/15/2014 ARETHA ARZATE CHEMICAL EQUIPMENT CONTROLLER Ot 611.79 12/15/2014 ABDELRAHMAN COLLINS, CADEN Guerrero Ot 397.0 12/15/2014 ABDELRAHMAN COLLINS, CADEN Guerrero Ot 424.0 12/15/2014 ABDELRAHMAN COLLINS, CADEN Guerrero Ot 786.09 12/15/2014 ABDELRAHMAN COLLINS, CADEN Guerrero Ot 786.50 12/15/2014 ABDELRAHMAN COLLINS, CADEN Guerrero Ot 786.09 12/15/2014 ABDELRAHMAN COLLINS, CADEN Guerrero Ot 786.50 12/15/2014 ANOOP MIRANDA DO Ot V54.16 12/15/2014 STACY LOWEP Ot V76.12 12/15/2014 LADONNA GALLARDO MD Ot V72.84 01/22/2015 Ot 715.31 02/18/2015 Ot 715.31 02/18/2015 Ot 611.72 02/18/2015 Ot V76.12 02/18/2015 Ot 793.80 02/18/2015 Ot 793.80 02/18/2015 Ot 338.29 02/18/2015 Ot 724.2 02/18/2015 Ot 786.05 02/18/2015 Ot 780.93 02/18/2015 Ot 781.2 02/18/2015 Ot 331.9 02/18/2015 Ot 780.93 02/18/2015 Ot 781.2 02/18/2015 STACY LOWE CHEMICAL EQUIPMENT CONTROLLER Ot 719.47 02/18/2015 STACY LOWE CHEMICAL EQUIPMENT CONTROLLER Ot 722.52 02/18/2015 STACY LOWE CHEMICAL EQUIPMENT CONTROLLER Ot 736.70 02/18/2015 STACY LOWE CHEMICAL EQUIPMENT CONTROLLER Ot 737.30 02/18/2015 STACY LOWE CHEMICAL EQUIPMENT CONTROLLER Ot 756.12 02/18/2015 ARETHA ARZATE CHEMICAL EQUIPMENT CONTROLLER Ot 611.71 02/18/2015 ARETHA ARZATE CHEMICAL EQUIPMENT CONTROLLER Ot 611.79 02/18/2015 ABDELRAHMAN COLLINS, CADEN Guerrero Ot 397.0 02/18/2015 ABDELRAHMAN COLLINS, CADEN Guerrero Ot 424.0 02/18/2015 ABDELRAHMAN COLLINS, CADEN Guerrero Ot 786.09 02/18/2015 ABDELRAHMAN COLLINS, CADEN Guerrero Ot 786.50 02/18/2015 ABDELRAHMAN COLLINS, CADEN Guerrero Ot 786.09 02/18/2015 ABDELRAMHAN COLLINS, CADEN Guerrero Ot 786.50 02/18/2015 ANOOP MIRANDA DO Ot V54.16 02/18/2015 STACY LOWE CHEMICAL EQUIPMENT CONTROLLER Ot V76.12 02/18/2015 LADONNA GALLARDO MD Ot V72.84 02/18/2015 Ot 715.91 02/18/2015 Ot 715.31 02/26/2015 Ot 611.72 02/26/2015 Ot V76.12 02/26/2015 Ot 793.80 02/26/2015 Ot 793.80 02/26/2015 Ot 338.29 02/26/2015 Ot 724.2 02/26/2015 Ot 786.05 02/26/2015 Ot 780.93 02/26/2015 Ot 781.2 02/26/2015 Ot 331.9 02/26/2015 Ot 780.93 02/26/2015 Ot 781.2 02/26/2015 STACY LOWE CHEMICAL EQUIPMENT CONTROLLER Ot 719.47 02/26/2015 STACY LOWE CHEMICAL EQUIPMENT CONTROLLER Ot 722.52 02/26/2015 STACY LOWE CHEMICAL EQUIPMENT CONTROLLER Ot 736.70 02/26/2015 STACY LOWE CHEMICAL EQUIPMENT CONTROLLER Ot 737.30 02/26/2015 STACY LOWE CHEMICAL EQUIPMENT CONTROLLER Ot 756.12 02/26/2015 HUEY, ARETHA CHEMICAL EQUIPMENT CONTROLLER Ot 611.71 02/26/2015 ARETHA ARZATE CHEMICAL EQUIPMENT CONTROLLER Ot 611.79 02/26/2015 ABDELRAHMAN COLLINS, CADEN Guerrero Ot 397.0 02/26/2015 ABDELRAHMAN COLLINS, CADEN Guerrero Ot 424.0 02/26/2015 ABDELRAHMAN COLLINS, CADEN Guerrero Ot 786.09 02/26/2015 ABDELRAHMAN COLLINS, CADEN Guerrero Ot 786.50 02/26/2015 ABDELRAHMAN COLLINS, CADEN Guerrero Ot 786.09 02/26/2015 ABDELRAHMAN COLLINS, CADEN Guerrero Ot 786.50 02/26/2015 ANOOP MIRANDA DO Ot V54.16 02/26/2015 STACY LOWE CHEMICAL EQUIPMENT CONTROLLER Ot V76.12 02/26/2015 LADONNA GALLARDO MD Ot V72.84 02/26/2015 Ot 715.91 02/26/2015 Ot 715.31 03/02/2015 Ot 611.72 03/02/2015 Ot V76.12 03/02/2015 Ot 793.80 03/02/2015 Ot 793.80 03/02/2015 Ot 338.29 03/02/2015 Ot 724.2 03/02/2015 Ot 786.05 03/02/2015 Ot 780.93 03/02/2015 Ot 781.2 03/02/2015 Ot 331.9 03/02/2015 Ot 780.93 03/02/2015 Ot 781.2 03/02/2015 STACY LOWE CHEMICAL EQUIPMENT CONTROLLER Ot 719.47 03/02/2015 STACY LOWE CHEMICAL EQUIPMENT CONTROLLER Ot 722.52 03/02/2015 STACY LOWE CHEMICAL EQUIPMENT CONTROLLER Ot 736.70 03/02/2015 STACY LOWE CHEMICAL EQUIPMENT CONTROLLER Ot 737.30 03/02/2015 STACY LOWE CHEMICAL EQUIPMENT CONTROLLER Ot 756.12 03/02/2015 ARETHA ARZATE CHEMICAL EQUIPMENT CONTROLLER Ot 611.71 03/02/2015 ARETHA ARZATE CHEMICAL EQUIPMENT CONTROLLER Ot 611.79 03/02/2015 ABDELRAHMAN COLLINS, CADEN Guerrero Ot 397.0 03/02/2015 ABDELRAHMAN COLLINS, CADEN Guerrero Ot 424.0 03/02/2015 ABDELRAHMAN COLLINS, CADEN Guerrero Ot 786.09 03/02/2015 ABDELRAHMAN COLLINS, CADEN Guerrero Ot 786.50 03/02/2015 ABDELRAHMAN COLLINS, CADEN Guerrero Ot 786.09 03/02/2015 ABDELRAHMAN COLLINS, CADEN Guerrero Ot 786.50 03/02/2015 GELLENVALENCIA, ANOOP Reyes Ot V54.16 03/02/2015 STACY LOWE Ot V76.12 03/02/2015 PAULINA COLLINS, LADONNA Ot V72.84 03/02/2015 Ot 715.91 03/02/2015 Ot 715.31 03/05/2015 ENID DO, HEATHER F Ot V43.61 03/05/2015 ENID DO, HEATHER F Ot V54.81 03/05/2015 ENID DO, HEATHER F Ot V57.1 03/25/2015 ENID DO, HEATHER F Ot V43.61 03/25/2015 ENID DO, HEATHER F Ot V54.81 03/25/2015 ENID DO, HEATHER F Ot V57.1 04/27/2015 ENID DO, HEATHER F Ot V43.61 04/27/2015 ENID DO, HEATHER F Ot V54.81 04/27/2015 ENID DO, HEATHER F Ot V57.1 05/11/2015 ENID DO, HEATHER F Ot V43.61 05/11/2015 ENID DO, HEATHER F Ot V54.81 05/11/2015 ENID DO, HEATHER F Ot V57.1 05/20/2015 CAROLINA COLLINS, LEANDRO Reyes Ot V76.12 08/05/2015 GLOBE ELIO DRUMMOND Ot E11.9 08/05/2015 LEA ELIO DRUMMOND Ot E78.5 08/05/2015 LEAELIO LYONS DO Ot F32.9 08/05/2015 GLOBE DOELIO Ot F41.9 08/05/2015 GLOBE DOELIO Ot G62.9 08/05/2015 GLOBE ELIO DRUMMOND Ot G89.4 08/05/2015 LEAELIO LYONS DO Ot J44.9 08/05/2015 GLOBE ELIO DURMMOND Ot M24.671 08/05/2015 LEA ELIO DRUMMOND Ot R26.9 08/05/2015 LEAELIO LYONS DO Ot S00.83XA 08/05/2015 LEA ELIO DRUMMOND Ot S06.0X0A 08/05/2015 LEAELIO LYONS DO Ot S19.9XXA 08/05/2015 ELIO LEA DO Ot W18.09XA 08/05/2015 ELIO LEA DO Ot Y92.019 08/05/2015 GLOBE ELIO DRUMMOND Ot Z23 08/05/2015 LEA ELIO DRUMMOND Ot Z87.891 08/07/2015 Ot 611.72 08/07/2015 Ot V76.12 08/07/2015 Ot 793.80 08/07/2015 Ot 793.80 08/07/2015 Ot 338.29 08/07/2015 Ot 724.2 08/07/2015 Ot 786.05 08/07/2015 Ot 780.93 08/07/2015 Ot 781.2 08/07/2015 Ot 331.9 08/07/2015 Ot 780.93 08/07/2015 Ot 781.2 08/07/2015 STACY LOWE CHEMICAL EQUIPMENT CONTROLLER Ot 719.47 08/07/2015 STACY LOWE CHEMICAL EQUIPMENT CONTROLLER Ot 722.52 08/07/2015 STACY LOWE CHEMICAL EQUIPMENT CONTROLLER Ot 736.70 08/07/2015 STACY LOWE CHEMICAL EQUIPMENT CONTROLLER Ot 737.30 08/07/2015 STACY LOWE CHEMICAL EQUIPMENT CONTROLLER Ot 756.12 08/07/2015 ARETHA ARZATE CHEMICAL EQUIPMENT CONTROLLER Ot 611.71 08/07/2015 ARETHA ARZATE CHEMICAL EQUIPMENT CONTROLLER Ot 611.79 08/07/2015 CADEN QUICK MD Ot 397.0 08/07/2015 CADEN QUICK MD Ot 424.0 08/07/2015 CADEN QUICK MD Ot 786.09 08/07/2015 CADEN QUICK MD Ot 786.50 08/07/2015 CADEN QUICK MD Ot 786.09 08/07/2015 CADEN QUICK MD Ot 786.50 08/07/2015 ANOOP MIRANDA DO Ot V54.16 08/07/2015 STACY LOWE CHEMICAL EQUIPMENT CONTROLLER Ot V76.12 08/07/2015 LADONNA GALLARDO MD Ot V72.84 08/07/2015 Ot 715.91 08/07/2015 Ot 715.31 08/07/2015 LEANDRO FIGUEROA MD Ot V76.12 09/11/2015 Ot 611.72 09/11/2015 Ot V76.12 09/11/2015 Ot 793.80 09/11/2015 Ot 793.80 09/11/2015 Ot 338.29 09/11/2015 Ot 724.2 09/11/2015 Ot 786.05 09/11/2015 Ot 780.93 09/11/2015 Ot 781.2 09/11/2015 Ot 331.9 09/11/2015 Ot 780.93 09/11/2015 Ot 781.2 09/11/2015 STACY LOWE CHEMICAL EQUIPMENT CONTROLLER Ot 719.47 09/11/2015 STACY LOWE CHEMICAL EQUIPMENT CONTROLLER Ot 722.52 09/11/2015 STACY LOWE CHEMICAL EQUIPMENT CONTROLLER Ot 736.70 09/11/2015 STACY LOWE CHEMICAL EQUIPMENT CONTROLLER Ot 737.30 09/11/2015 STACY LOWE CHEMICAL EQUIPMENT CONTROLLER Ot 756.12 09/11/2015 ARETHA ARZATE CHEMICAL EQUIPMENT CONTROLLER Ot 611.71 09/11/2015 ARETHA ARZATE CHEMICAL EQUIPMENT CONTROLLER Ot 611.79 09/11/2015 ABDELRAHMAN COLLINS, CADEN Guerrero Ot 397.0 09/11/2015 ABDELRAHMAN COLLINS, CADEN Guerrero Ot 424.0 09/11/2015 CADEN QUICK MD Ot 786.09 09/11/2015 CADEN QUICK MD Ot 786.50 09/11/2015 CADEN QUICK MD Ot 786.09 09/11/2015 CADEN QUICK MD Ot 786.50 09/11/2015 ANOOP MIRANDA DO Ot V54.16 09/11/2015 STACY LOWE CHEMICAL EQUIPMENT CONTROLLER Ot V76.12 09/11/2015 LADONNA GALLARDO MD Ot V72.84 09/11/2015 Ot 715.91 09/11/2015 Ot 715.31 09/11/2015 LEANDRO FIGUEROA MD Ot V76.12 10/05/2015 LEANDRO FIGUEROA MD Ot M41.9 10/05/2015 LEANDRO FIGUEROA MD Ot M47.894 10/15/2015 STACY LOWE CHEMICAL EQUIPMENT CONTROLLER Ot M47.894 10/15/2015 STACY LOWE CHEMICAL EQUIPMENT CONTROLLER Ot M47.896 10/21/2015 GWEN COLLINS, MATT D Ot N39.0 10/21/2015 GWEN COLLINS, MATT D Ot R07.89 10/21/2015 GWEN COLLINS, MATT D Ot R13.10 10/21/2015 GWEN COLLINS, MATT D Ot R47.81 10/22/2015 CAROLINA COLLINS, LEANDRO A Ot M41.9 10/22/2015 CAROLINA COLLINS, LEANDRO A Ot M47.894 10/29/2015 ENID DO, HEATHER F Ot M19.011 10/29/2015 ENID DO, HEATHER F Ot M75.101 10/29/2015 STACY LOWE CHEMICAL EQUIPMENT CONTROLLER Ot M47.894 10/29/2015 STACY LOWE CHEMICAL EQUIPMENT CONTROLLER Ot M47.896 11/05/2015 CAROLINA COLLINS, LEANDRO A Ot M41.9 11/05/2015 CAROLINA COLLINS, LEANDRO A Ot M47.894 11/05/2015 ENID DO, HEATHER F Ot M19.011 11/05/2015 ENID DO, HEATHER F Ot M75.101 11/17/2015 SHAVONNE COLLINS, AIRAM T Ot G89.29 11/17/2015 SHAVONNE COLLINS, AIRAM T Ot M25.511 12/10/2015 ENID DO, HEATHER F Ot M19.011 12/10/2015 ENID DO, HEATHER F Ot D64.9 12/10/2015 ENID DO, HEATHER F Ot E11.9 12/10/2015 ENID DO, HEATHER F Ot E78.0 12/10/2015 ENID DO, HEATHER F Ot E87.1 12/10/2015 ENID DO, HEATHER F Ot G47.30 12/10/2015 ENID DO, HEATHER F Ot G62.9 12/10/2015 ENID DO, HEATHER F Ot G89.4 12/10/2015 ENID DO, HEATHER F Ot J44.9 12/10/2015 ENID DO, HEATHER F Ot K21.9 12/10/2015 ENID DO, HEATHER F Ot M19.012 12/18/2015 ENID DO, HEATHER F Ot M19.011 12/18/2015 ENID DO, HEATHER F Ot Z01.811 12/18/2015 ENID DO, HEATHER Frank Ot Z01.812 12/18/2015 ENID DO, HEATHER Frank Ot Z11.2 12/29/2015 CAROLINA COLLINS, LEANDRO A Ot E11.9 12/29/2015 CAROLINA COLLINS, LEANDRO A Ot E86.0 12/29/2015 CAROLINA COLLINS, LEANDRO A Ot K52.9 12/29/2015 CAROLINA COLLINS, LEANDRO A Ot R41.0 12/31/2015 ENID DO, HEATHER Frank Ot M19.011 12/31/2015 ENID DO, HEATHER Frank Ot Z01.811 12/31/2015 ENID DO, HEATHER Frank Ot Z01.812 12/31/2015 ENID DO, HEATHER Frank Ot Z11.2 01/28/2016 ENID DO, HEATHER Frank Ot M79.604 01/28/2016 ENID DO, HEATHER Frank Ot R22.41 02/16/2016 CADEN QUICK MD Ot E78.2 MIXED HYPERLIPIDEMIA 02/16/2016 CADEN QUICK MD Ot I10 ESSENTIAL (PRIMARY) HYPERTENSION 02/16/2016 CADEN QUICK MD Ot R06.00 DYSPNEA, UNSPECIFIED 02/16/2016 CADEN QUICK MD Ot R09.89 OTH SYMPTOMS AND SIGNS INVOLVING THE CIR 02/16/2016 ENID HEATHER DRUMMOND Ot M79.604 PAIN IN RIGHT LEG 02/16/2016 ENID , HEATHER Frank Ot R22.41 LOCALIZED SWELLING, MASS AND LUMP, RIGHT 03/01/2016 ENID , HEATHER Frank Ot M79.604 PAIN IN RIGHT LEG 03/01/2016 EN[place] , HEATHER Frank Ot R22.41 LOCALIZED SWELLING, MASS AND LUMP, RIGHT 03/09/2016 CADEN QUICK MD Ot E78.2 MIXED HYPERLIPIDEMIA 03/09/2016 CADEN QUICK MD Ot I10 ESSENTIAL (PRIMARY) HYPERTENSION 03/09/2016 CADEN QUICK MD Ot R06.00 DYSPNEA, UNSPECIFIED 03/09/2016 CADEN QUICK MD Ot R09.89 OTH SYMPTOMS AND SIGNS INVOLVING THE CIR 03/14/2016 [place] HEATHER Frank Ot M25.511 PAIN IN RIGHT SHOULDER 03/31/2016 CADEN QUICK MD Ot E78.2 MIXED HYPERLIPIDEMIA 03/31/2016 CADEN QUICK MD Ot I10 ESSENTIAL (PRIMARY) HYPERTENSION 03/31/2016 CADEN QUICK MD Ot R06.00 DYSPNEA, UNSPECIFIED 03/31/2016 CADEN QUICK MD Ot R09.89 OTH SYMPTOMS AND SIGNS INVOLVING THE CIR 04/04/2016 [place] DO, HEATHER aZc Ot M25.511 PAIN IN RIGHT SHOULDER 05/30/2016 LAMBERT FRANCY DRUMMOND Ot M25.511 PAIN IN RIGHT SHOULDER 06/16/2016 LAMBERTFRANCY FERNANDEZ DO Ot M25.511 PAIN IN RIGHT SHOULDER 07/01/2016 [place] DO, HEATHER Zac Ot M25.511 PAIN IN RIGHT SHOULDER 07/21/2016 [place] DO, HEATHER Zac Ot M25.511 PAIN IN RIGHT SHOULDER 07/28/2016 [place] DO, HEATHER Zac Ot M25.511 PAIN IN RIGHT SHOULDER 11/22/2017 LIZETH COLLINS, MARK Oneill Ot R10.12 LEFT UPPER QUADRANT PAIN 11/22/2017 MARK STANLEY MD Ot R10.13 EPIGASTRIC PAIN 11/22/2017 LIZETH COLLINS, MARK Oneill Ot R13.10 DYSPHAGIA, UNSPECIFIED 11/22/2017 MARK STANLEY MD Ot Z01.818 ENCOUNTER FOR OTHER PREPROCEDURAL EXAMIN 11/22/2017 LIZETH COLLINS, MARK Oneill Ot Z86.010 PERSONAL HISTORY OF COLONIC POLYPS Procedures Code [place] [address] ROUTINE VENIPUNCTURE 10/29/2012 12532 XRAY FOOT RIGHT COMP MIN 3 VIEWS 10/29/2012 Podiatry Tisha Marley 10/29/2012 37785 UA LONG DIP 10/29/2012 21717 URINE DRUG SCREEN (IN-HOUSE ) 10/29/2012 18479 CBC 10/29/2012 24153 CRP 10/30/2012 KEV COMBS 12/18/2012 50395 JOINT INJECTION- INTERMEDIATE JOINT 02/07/2013 22159 ROUTINE VENIPUNCTURE 02/25/2013 62210 A1C (IN-HOUSE) 02/25/2013 31910 CMP 02/25/2013 04913 LIPID PANEL 02/25/2013 5240028 GFR CALC (RESULT ONLY) 02/25/2013 30706 TSH 02/25/2013 74530 MAMMOGRAM DX, ROSITA 03/11/2013 55287 URINE DRUG SCREEN (IN-HOUSE ) 07/03/2013 G0008 FLU ADMINISTRATION ( MEDICARE ONLY) 07/03/2013 Results Test Result Range Complete blood count (CBC) with automated white blood cell (WBC) differential - 12/01/17 15:15 Blood leukocytes automated count (number/volume) 19.1 10*3/uL 4.3-11.0 Blood erythrocytes automated count (number/volume) 3.74 10*6/uL 4.35-5.85 Venous blood hemoglobin measurement (mass/volume) 12.0 g/dL 11.5-16.0 Blood hematocrit (volume fraction) 36 % 35-52 Automated erythrocyte mean corpuscular volume 97 [foz_us] 80-99 Automated erythrocyte mean corpuscular hemoglobin (mass per erythrocyte) 32 pg 25-34 Automated erythrocyte mean corpuscular hemoglobin concentration measurement ( mass/volume) 33 g/dL 32-36 Automated erythrocyte distribution width ratio 13.8 % 10.0-14.5 Automated blood platelet count (count/volume) 290 10*3/uL 130-400 Automated blood platelet mean volume measurement 10.4 [foz_us] 7.4-10.4 Automated blood neutrophils/100 leukocytes 83 % 42-75 Automated blood lymphocytes/100 leukocytes 10 % 12-44 Blood monocytes/100 leukocytes 7 % 0-12 Automated blood eosinophils/100 leukocytes 0 % 0-10 Automated blood basophils/100 leukocytes 0 % 0-10 Blood neutrophils automated count (number/volume) 15.8 10*3 1.8-7.8 Blood lymphocytes automated count (number/volume) 1.9 10*3 1.0-4.0 Blood monocytes automated count (number/volume) 1.4 10*3 0.0-1.0 Automated eosinophil count 0.0 10*3/uL 0.0-0.3 Automated blood basophil count (count/volume) 0.0 10*3/uL 0.0-0.1 PT panel in platelet poor plasma by coagulation assay - 12/01/17 15:15 Prothrombin time (PT) in platelet poor plasma by coagulation assay 13.9 s 12.2-14.7 INR in platelet poor plasma or blood by coagulation assay 1.1 0.8-1.4 Activated partial thromboplastin time (aPTT) in platelet poor plasma bycoagulation assay - 12/01/17 15:15 Activated partial thromboplastin time (aPTT) in platelet poor plasma bycoagulation assay 32 s 24-35 Comprehensive metabolic panel - 12/01/17 15:15 Serum or plasma sodium measurement (moles/volume) 136 mmol/L 135-145 Serum or plasma potassium measurement (moles/volume) 3.8 mmol/L 3.6-5.0 Serum or plasma chloride measurement (moles/volume) 101 mmol/L 98-107 Carbon dioxide 26 mmol/L 21-32 Serum or plasma anion gap determination (moles/volume) 9 mmol/L 5-14 Serum or plasma urea nitrogen measurement (mass/volume) 11 mg/dL 7-18 Serum or plasma creatinine measurement (mass/volume) 0.83 mg/dL 0.60-1.30 Serum or plasma urea nitrogen/creatinine mass ratio 13 NRG Serum or plasma creatinine measurement with calculation of estimated glomerular filtration rate > NRG Serum or plasma glucose measurement (mass/volume) 125 mg/dL 70-105 Serum or plasma calcium measurement (mass/volume) 8.6 mg/dL 8.5-10.1 Serum or plasma total bilirubin measurement (mass/volume) 1.1 mg/dL 0.1-1.0 Serum or plasma alkaline phosphatase measurement (enzymatic activity/volume) 177 U/L 40-136 Serum or plasma aspartate aminotransferase measurement (enzymatic activity/ volume) 19 U/L 5-34 Serum or plasma alanine aminotransferase measurement (enzymatic activity/volume ) 16 U/L 0-55 Serum or plasma protein measurement (mass/volume) 6.3 g/dL 6.4-8.2 Serum or plasma albumin measurement (mass/volume) 3.4 g/dL 3.2-4.5 Blood manual differential performed detection - 12/01/17 15:15 Blood monocytes/100 leukocytes 8 % NRG Manual blood segmented neutrophils/100 leukocytes 78 % NRG Manual blood lymphocytes/100 leukocytes 13 % NRG Manual blood basophils/100 leukocytes 1 % NRG Blood stomatocytes detection by light microscopy MODERATE NRG Serum or plasma C reactive protein measurement (mass/volume) - 12/01/17 15:15 Serum or plasma C reactive protein measurement (mass/volume) 4.80 mg /dL 0.00-0.50 Bacterial blood culture - 12/01/17 15:15 Bacterial blood culture NG NRG Capillary blood glucose measurement by glucometer (mass/volume) - 12/01/17 15: 23 Capillary blood glucose measurement by glucometer (mass/volume) 117 mg/dL 70-110 Complete urinalysis with reflex to culture - 12/01/17 15:25 Urine color determination YELLOW NRG Urine clarity determination CLEAR NRG Urine pH measurement by test strip 6 5-9 Specific gravity of urine by test strip 1.010 1.016- 1.022 Urine protein assay by test strip, semi-quantitative NEGATIVE NEGATIVE Urine glucose detection by automated test strip NEGATIVE NEGATIVE Erythrocytes detection in urine sediment by light microscopy NEGATIVE NEGATIVE Urine ketones detection by automated test strip NEGATIVE NEGATIVE Urine nitrite detection by test strip NEGATIVE NEGATIVE Urine total bilirubin detection by test strip NEGATIVE NEGATIVE Urine urobilinogen measurement by automated test strip (mass/volume) NORMAL NORMAL Urine leukocyte esterase detection by dipstick NEGATIVE NEGATIVE Automated urine sediment erythrocyte count by microscopy (number/high power field) NONE NRG Automated urine sediment leukocyte count by microscopy (number/high power field ) NONE NRG Bacteria detection in urine sediment by light microscopy NEGATIVE NRG Squamous epithelial cells detection in urine sediment by light microscopy RARE NRG Crystals detection in urine sediment by light microscopy NONE NRG Casts detection in urine sediment by light microscopy NONE NRG Mucus detection in urine sediment by light microscopy NEGATIVE NRG Complete urinalysis with reflex to culture NO NRG Renal epithelial cells detection in urine sediment by light microscopy NONE NRG Blood lactic acid measurement (moles/volume) - 12/01/17 15:57 Blood lactic acid measurement (moles/volume) 1.04 mmol/L 0.50-2.00 Bacterial blood culture - 12/01/17 15:57 Bacterial blood culture NG NRG Influenza virus A and B antigen detection - 12/01/17 17:48 FLU RESULT NEGATIVE FOR INFLUENZA A AND B ANTIGENS BY IA NRG Complete blood count (CBC) with automated white blood cell (WBC) differential - 12/02/17 04:46 Blood leukocytes automated count (number/volume) 12.4 10*3/uL 4.3-11.0 Blood erythrocytes automated count (number/volume) 3.50 10*6/uL 4.35-5.85 Venous blood hemoglobin measurement (mass/volume) 11.1 g/dL 11.5-16.0 Blood hematocrit (volume fraction) 34 % 35-52 Automated erythrocyte mean corpuscular volume 98 [foz_us] 80-99 Automated erythrocyte mean corpuscular hemoglobin (mass per erythrocyte) 32 pg 25-34 Automated erythrocyte mean corpuscular hemoglobin concentration measurement ( mass/volume) 32 g/dL 32-36 Automated erythrocyte distribution width ratio 13.9 % 10.0-14.5 Automated blood platelet count (count/volume) 237 10*3/uL 130-400 Automated blood platelet mean volume measurement 10.7 [foz_us] 7.4-10.4 Automated blood neutrophils/100 leukocytes 76 % 42-75 Automated blood lymphocytes/100 leukocytes 15 % 12-44 Blood monocytes/100 leukocytes 8 % 0-12 Automated blood eosinophils/100 leukocytes 0 % 0-10 Automated blood basophils/100 leukocytes 0 % 0-10 Blood neutrophils automated count (number/volume) 9.5 10*3 1.8-7.8 Blood lymphocytes automated count (number/volume) 1.8 10*3 1.0-4.0 Blood monocytes automated count (number/volume) 1.0 10*3 0.0-1.0 Automated eosinophil count 0.0 10*3/uL 0.0-0.3 Automated blood basophil count (count/volume) 0.0 10*3/uL 0.0-0.1 Comprehensive metabolic panel - 12/02/17 04:46 Serum or plasma sodium measurement (moles/volume) 140 mmol/L 135-145 Serum or plasma potassium measurement (moles/volume) 3.3 mmol/L 3.6-5.0 Serum or plasma chloride measurement (moles/volume) 109 mmol/L 98-107 Carbon dioxide 23 mmol/L 21-32 Serum or plasma anion gap determination (moles/volume) 8 mmol/L 5-14 Serum or plasma urea nitrogen measurement (mass/volume) 10 mg/dL 7-18 Serum or plasma creatinine measurement (mass/volume) 0.68 mg/dL 0.60-1.30 Serum or plasma urea nitrogen/creatinine mass ratio 15 NRG Serum or plasma creatinine measurement with calculation of estimated glomerular filtration rate > NRG Serum or plasma glucose measurement (mass/volume) 100 mg/dL 70-105 Serum or plasma calcium measurement (mass/volume) 8.5 mg/dL 8.5-10.1 Serum or plasma total bilirubin measurement (mass/volume) 0.9 mg/dL 0.1-1.0 Serum or plasma alkaline phosphatase measurement (enzymatic activity/volume) 153 U/L 40-136 Serum or plasma aspartate aminotransferase measurement (enzymatic activity/ volume) 15 U/L 5-34 Serum or plasma alanine aminotransferase measurement (enzymatic activity/volume ) 13 U/L 0-55 Serum or plasma protein measurement (mass/volume) 5.5 g/dL 6.4-8.2 Serum or plasma albumin measurement (mass/volume) 3.0 g/dL 3.2-4.5 Comprehensive metabolic panel - 12/02/17 11:25 Serum or plasma sodium measurement (moles/volume) 139 mmol/L 135-145 Serum or plasma potassium measurement (moles/volume) 3.3 mmol/L 3.6-5.0 Serum or plasma chloride measurement (moles/volume) 106 mmol/L 98-107 Carbon dioxide 23 mmol/L 21-32 Serum or plasma anion gap determination (moles/volume) 10 mmol/L 5-14 Serum or plasma urea nitrogen measurement (mass/volume) 11 mg/dL 7-18 Serum or plasma creatinine measurement (mass/volume) 0.72 mg/dL 0.60-1.30 Serum or plasma urea nitrogen/creatinine mass ratio 15 NRG Serum or plasma creatinine measurement with calculation of estimated glomerular filtration rate > NRG Serum or plasma glucose measurement (mass/volume) 120 mg/dL 70-105 Serum or plasma calcium measurement (mass/volume) 8.7 mg/dL 8.5-10.1 Serum or plasma total bilirubin measurement (mass/volume) 0.5 mg/dL 0.1-1.0 Serum or plasma alkaline phosphatase measurement (enzymatic activity/volume) 154 U/L 40-136 Serum or plasma aspartate aminotransferase measurement (enzymatic activity/ volume) 15 U/L 5-34 Serum or plasma alanine aminotransferase measurement (enzymatic activity/volume ) 14 U/L 0-55 Serum or plasma protein measurement (mass/volume) 6.0 g/dL 6.4-8.2 Serum or plasma albumin measurement (mass/volume) 3.2 g/dL 3.2-4.5 Encounters ACCT No. Visit Date/Time Discharge Status Pt. Type Provider Facility Loc./Unit Complaint [id number] 07/03/2013 10:48:00 07/03/2013 23:59:59 [facility] Outpatient ARETHA ARZATE APRN [id number] 07/03/2013 10:48:00 07/03/2013 23:59:59 [facility] Outpatient ARETHA ARZATE APRN [id number] 01/17/2013 12:22:00 01/17/2013 23:59:59 [facility] Outpatient [id number] 12/13/2012 12:05:00 12/13/2012 23:59:59 [facility] Outpatient ANSLEY GABRIELLE DRUMMOND [id number] 11/29/2012 10:17:00 11/29/2012 23:59:59 CLS Outpatient [id number] 10/29/2012 12:20:00 10/29/2012 23:59:59 [facility] Outpatient ARETHA ARZATE APRN [id number] 09/27/2012 09:04:00 09/27/2012 23:59:59 CLS Outpatient ROSITA PACHECO MD 94 08/15/2012 10:23:00 08/15/2012 23:59:59 CLS Outpatient ARETHA ARZATE APRN [id number] 03/29/2013 13:29:00 Document Registration [id number] 03/07/2013 12:28:00 Document Registration [id number] 02/25/2013 14:10:00 Document Registration [id number] 02/07/2013 13:42:00 Document Registration [id number] 11/24/2017 10:30:00 11/24/2017 23:59:59 CLS Preadmit MARK STANLEY MD [facility] ENDO DYSPHAGIA/EPIGASTRIC LUQ PAIN/HX OF COLON POLYP [id number] 11/21/2017 05:49:00 11/21/2017 23:59:59 CLS Outpatient MARK STANLEY MD [facility] PREOP COLONOSCOPY/EGD [id number] 06/30/2016 12:48:00 06/30/2016 23:59:59 CLS Outpatient HEATHER ROSSI DO [facility] RAD RT SHOULDER PAIN [id number] 05/30/2016 12:59:00 05/30/2016 15:27:00 DIS Emergency FRANCY VERDIN DO [facility] ER RIGHT SHOULDER PAIN [id number] 03/09/2016 12:28:00 04/04/2016 11:55:00 DIS Outpatient HEATHER ROSSI DO [facility] REHAB [id number] 02/15/2016 13:46:00 02/15/2016 23:59:59 CLS Outpatient CADEN QUICK MD [facility] CARD [id number] 01/27/2016 11:28:00 01/27/2016 23:59:59 CLS Outpatient HEATHER ROSSI DO [facility] RAD [id number] 12/25/2015 16:17:00 12/29/2015 11:45:00 DIS Inpatient LEANDRO FIGUEROA MD [facility] 4TH [id number] 12/08/2015 05:46:00 12/10/2015 11:00:00 DIS Inpatient HEATHER ROSSI DO [facility] 4TH [id number] 11/25/2015 10:04:00 11/25/2015 23:59:59 CLS Outpatient HEATHER ROSSI DO [facility] PREOP [id number] 11/17/2015 17:35:00 11/17/2015 19:14:00 DIS Emergency SHAVONNE COLLINS, AIRAM Chnadra [facility] ER [id number] 10/21/2015 14:49:00 10/21/2015 18:54:00 DIS Emergency MATT HIDALGO MD [facility] ER [id number] 10/06/2015 09:33:00 10/06/2015 23:59:59 CLS Outpatient HEATHER ROSSI DO [facility] RAD [id number] 10/01/2015 06:51:00 10/01/2015 23:59:59 CLS Outpatient LEANDRO FIGUEROA MD [facility] RAD [id number] 09/11/2015 13:44:00 09/11/2015 23:59:59 CLS Outpatient STACY LOWE [facility] RAD [id number] 09/11/2015 13:37:00 09/11/2015 23:59:59 CLS Outpatient BILLY CARO APRN [facility] RT [id number] 08/04/2015 14:51:00 08/05/2015 17:43:00 DIS Inpatient ELIO LEA DO [facility] ICU [id number] 04/28/2015 12:39:00 05/11/2015 11:47:00 DIS Outpatient ENID HEATHER DRUMMOND [facility] REHAB [id number] 04/27/2015 09:47:00 04/27/2015 23:59:59 CLS Outpatient LEANDRO FIGUEROA MD [facility] RAD [id number] 10/14/2014 12:52:00 10/14/2014 16:09:00 DIS Emergency FRANCY VERDIN DO [facility] ER [id number] 08/11/2014 09:44:00 09/16/2014 15:11:00 DIS Outpatient STACY LOWE [facility] REHAB [id number] 08/06/2014 07:52:00 08/06/2014 12:05:00 DIS Outpatient LADONNA GALLARDO MD [facility] [id number] 07/31/2014 07:22:00 07/31/2014 23:59:59 CLS Outpatient LADONNA GALLARDO MD [facility] PREOP [id number] 05/09/2014 11:01:00 05/09/2014 23:59:59 CLS Outpatient STACY LOWE [facility] RAD [id number] 04/17/2014 14:28:00 04/17/2014 23:59:59 CLS Outpatient STACY LOWE [facility] RAD [id number] 04/11/2014 17:46:00 04/11/2014 20:21:00 DIS Emergency FRANCY VERDIN DO [facility] ER [id number] 03/13/2014 13:52:00 03/15/2014 12:00:00 DIS Inpatient ANOOP MIRANDA DO [facility] [id number] 02/11/2014 13:48:00 02/11/2014 23:59:59 CLS Outpatient [id number] 12/19/2013 13:10:00 12/19/2013 23:59:59 CLS Outpatient [id number] 08/09/2013 11:36:00 08/09/2013 23:59:59 CLS Outpatient ANOOP MIRANDA DO [facility] RAD [id number] 07/01/2013 05:27:00 07/01/2013 09:10:00 DIS Emergency MATT HIDALGO MD [facility] ER [id number] 04/22/2013 12:55:00 05/01/2013 14:42:00 DIS Outpatient PEREZ KEV Nino [employer] [facility] REHAB [id number] 03/19/2013 12:02:00 03/19/2013 23:59:59 CLS Outpatient CADEN QUICK MD [facility] RAD [id number] 03/13/2013 13:10:00 03/13/2013 23:59:59 CLS Outpatient CADEN QUICK MD [facility] CARD [id number] 02/27/2013 14:40:00 02/27/2013 23:59:59 CLS Outpatient ARETHA ARZATEP [facility] RAD [id number] 12/01/2017 15:36:00 Document Registration [id number] 02/18/2015 09:30:00 Document Registration [id number] 02/18/2015 09:30:00 Document Registration [id number] 12/31/2014 09:04:00 Document Registration [id number] 12/15/2014 15:26:00 Document Registration [id number] 12/19/2012 12:07:00 Document Registration [id number] 12/05/2012 00:17:00 Document Registration [id number] 09/15/2012 10:56:00 Document Registration [id number] 01/18/2012 11:37:00 Document Registration [id number] 11/01/2011 11:28:00 Document Registration [id number] 10/20/2011 15:54:00 Document Registration [id number] 09/05/2011 10:22:00 Document Registration [id number] 07/06/2011 19:52:00 Document Registration [id number] 06/08/2011 15:24:00 Document Registration [id number] 03/27/2011 15:09:00 Document Registration [id number] 03/23/2011 16:19:00 Document Registration [id number] 12/22/2010 09:11:00 Document Registration [id number] 09/01/2010 10:32:00 Document Registration [id number] 05/03/2010 15:07:00 Document Registration [id number] 04/21/2010 14:07:00 Document Registration
[2017-12-03] MEDS ORDERED: KCL 20 MEQ TAB (K-DUR) PO NR (12:15)
[2017-12-03 12:30] VITALS: BP 137/79
[2017-12-03] MEDS: ENOXAPARIN 40 MG/0.4 ML (LOVENOX) SYR SC SCH (13:12)
[2017-12-03] MEDS ORDERED: PROMETHAZINE 25 MG (PHENERGAN) TAB PO PRN (15:15)
[2017-12-03 16:30] VITALS: BP 156/76
[2017-12-03] MEDS ORDERED: INFLUENZA TRIvalent 2017-2018 0.5 ML/45 MCG SYR IM ONE (17:54)
[2017-12-03 20:00] VITALS: BP 112/65
[2017-12-03] MEDS: eZETimibe 10 MG (ZETIA) TABLET PO SCH (20:21)
[2017-12-03] MEDS: MELOXICAM 7.5 MG (MOBIC) TABLET PO SCH (20:21)
--- NOTE | 2017-12-03 20:30 | Progress Note (SOAP) ---
Subjective Subjective/Events-last exam Afebrile, feels her breathing is improved. She has had some signs of withdrawal from opiates with diarrhea and tremulousness. Also have more severe pain in her hips than usual. Review of Systems Date Seen by Provider: Dec 03, 2017 Time Seen by Provider: 14:51 Objective Exam Last Set of Vital Signs Vital Signs Date Time Temp Pulse Resp B/P (MAP) Pulse Ox O2 Delivery O2 Flow Rate FiO2 12/03/17 19:11 98 Nasal Cannula 3.00 12/03/17 19:00 79 12/03/17 16:30 97.8 20 156/76 (102) 12/01/17 19:40 21 Capillary Refill : Less Than 3 Seconds I&O Intake and Output 12/03/17 00:00 Intake Total 3180 ml Output Total 2550 ml Balance 630 ml Intake Oral 1880 ml IV Total 1300 ml Output Urine Total 2550 ml # Bowel Movements 2 General: Alert, No Acute Distress Lungs: Clear to Auscultation, Normal Air Movement Heart: Regular Rate, No Murmurs Neuro: Normal Speech Psych/Mental Status: Mental Status NL Results/Procedures Lab Laboratory Tests 12/03/17 04:40: White Blood Count 6.9, Red Blood Count 3.29L, Hemoglobin 10.4L, Hematocrit 32L, Mean Corpuscular Volume 99, Mean Corpuscular Hemoglobin 32, Mean Corpuscular Hemoglobin Concent 32, Red Cell Distribution Width 14.1, Platelet Count 223, Mean Platelet Volume 10.7H Microbiology 12/01/17 Blood Culture - Preliminary, Resulted No growth 12/01/17 Influenza Types A,B Antigen (TIFFANI) - Final, Complete Radiology Chest x-ray 12/01/2017: IMPRESSION: Density developing in left lower lung would be consistent with pneumonia. Clinical followup recommended. Right hip x-ray 12/01/2017: IMPRESSION: No acute abnormality is seen with no significant change from a prior study from 04/23/2009. Assessment/Plan Assessment/Plan (1) Left lower lobe pneumonia Status: Acute Assessment & Plan: Azithromycin, ceftriaxone, supplemental oxygen as needed, duonebs 12/03 still requiring supplemental oxygen, wean as tolerated Qualifiers: Qualified Codes: J18.1 - Lobar pneumonia, unspecified organism (2) Chronic pain Status: Chronic Assessment & Plan: Given her confusion on dosing and episode of syncope or altered consciousness shortly after resuming medications, will start morphine at 15 mg BID and return to hydrocodone for now. Will monitor for signs of withdrawal that might indicate need to increase dose and monitor mental status for confusion or sedation that might indicate need for lower doses 12/03- diarrhea and tremulousness yesterday, will increase morphine to 15 mg TID and monitor mental status closely Qualifiers: Qualified Codes: G89.4 - Chronic pain syndrome (3) Hyperlipidemia Status: Chronic Assessment & Plan: Resume home medications (4) Anxiety Status: Chronic Assessment & Plan: Discussed that alprazolam is risky medication in combination with her pain medications and would recommend d/c, she is apparently not using it very often, will hold for now and monitor. (5) Episode of altered consciousness Status: Resolved Assessment & Plan: Unclear etiology, but particularly concerning given she was driving at the time. Consider medication in combination with her pneumonia/ illness. Will monitor while inpatient. (6) Fall Status: Acute Assessment & Plan: Reportedly fell per her niece's report sometime around when EMS was called, patient does not recall falling. Hip xray done due to pain and was okay, will consult PT for gait evaluation Qualifiers: Qualified Codes: W19.XXXA - Unspecified fall, initial encounter (7) Advance directive discussed with patient Status: Acute Assessment & Plan: When discussing code status, she states she would like to complete and advance directive, will consult social work. She does desire full code at this time, but she is not clear if this is her terminal worker wish, will readdress as needed. (8) DVT prophylaxis Status: Acute Assessment & Plan: Enoxaparin Clinical Quality Measures DVT/VTE Risk/Contraindication: Risk Factor Score Per Nursin RFS Level Per Nursing on Admit: 4+=Very High KATHIA ELLIS MD Dec 03, 2017 8:30 pm
[2017-12-04] MEDS: HYDROcodone/APAP 5 MG/325 MG (LORTAB) TAB PO PRN ×2 (00:24→11:42)
[2017-12-04 00:51] VITALS: BP 110/65
[2017-12-04] MEDS: RT-ALBUTEROL/IPRATROPIUM 3 ML (DUONEB) VIAL INH SCH ×4 (01:22→14:12)
[2017-12-04 04:29] VITALS: BP 109/59
[2017-12-04] MEDS: morphine ER 15 MG (MS CONTIN) TAB PO SCH ×2 (05:59→13:35)
[2017-12-04] MEDS: PANTOPRAZOLE 40 MG (PROTONIX) TAB PO SCH (06:00)
[2017-12-04 06:40] LABS: HEMOGLOBIN 10.3 G/DL (11.5-16.0); MEAN PLATELET VOLUME 10.6 FL (7.4-10.4); RED BLOOD COUNT 3.25 10^6/uL (4.35-5.85); RED CELL DISTRIBUTION WIDTH 14.1 % (10.0-14.5); WHITE BLOOD COUNT 5.2 10^3/uL (4.3-11.0)
[2017-12-04 06:46] LABS: ALANINE AMINOTRANSFERASE 11 U/L (0-55); ALBUMIN 2.9 GM/DL (3.2-4.5); ALKALINE PHOSPHATASE 116 U/L (40-136); BILIRUBIN,TOTAL 0.3 MG/DL (0.1-1.0); BUN/CREATININE RATIO 10; CALCIUM 8.5 MG/DL (8.5-10.1); CARBON DIOXIDE 23 MMOL/L (21-32); CHLORIDE 108 MMOL/L (98-107); CREATININE SERUM 0.71 MG/DL (0.60-1.30); GFR ESTIMATED > 60; GLUCOSE 88 MG/DL (70-105); POTASSIUM 3.3 MMOL/L (3.6-5.0); SODIUM 140 MMOL/L (135-145); TOTAL PROTEIN 5.4 GM/DL (6.4-8.2)
[2017-12-04 07:39] VITALS: BP 109/59
[2017-12-04 08:03] VITALS: BP 116/56
[2017-12-04] MEDS: cefTRIAXone INJECTION 1,000 MG in NS (IVPB) 50 ML IV SCH (09:01)
[2017-12-04] MEDS: SIMvastatin 20 MG (ZOCOR) TAB PO SCH (09:03)
[2017-12-04] MEDS: AZITHROMYCIN 250 MG TAB (ZITHROMAX) PO SCH (09:03)
[2017-12-04] MEDS: ASPIRIN 81 MG CHEW (CHILDREN'S ASA) PO SCH (09:03)
[2017-12-04] MEDS: FUROSEMIDE 40 MG (LASIX) TAB PO SCH (09:03)
[2017-12-04] MEDS: GABAPENTIN 600 MG (NEURONTIN) TAB PO SCH ×2 (09:03→13:35)
[2017-12-04] MEDS ORDERED: MORP30TA PO (09:45)
[2017-12-04] MEDS: NS IV 1000 ML 1,000 ML IV SCH (10:22)
--- NOTE | 2017-12-04 11:27 | Physical Therapy Evaluation ---
PT Evaluation-General Medical Diagnosis Admission Date Dec 01, 2017 at 18:00 Medical Diagnosis: LLL pneumonia Onset Date: Dec 01, 2017 Therapy Diagnosis Therapy Diagnosis: debility Height/Weight Height (Feet): 4 Height (Inches): 10.00 Weight (Pounds): 213 Weight (Ounces): 7.0 Precautions Precautions/Isolations: Fall Prevention, Standard Precautions Weight Bear Status Right Lower Extremity: Right Full Weight Bearing Left Lower Extremity: Left Full Weight Bearing Referral Physician: Jim Reason for Referral: Evaluation/Treatment Medical History Pertinent Medical History: COPD, DM Additional Medical History TIA, chronic back pain from scoliosis and multiple back surgeries. Current History EMS with fever and stiff neck x 2 wks/vomiting Reviewed History: Yes Social History Home: Single Level Current Living Status: Alone Entry Into Home: Ramp Prior/Core FIM Prior Level of Function Functional [place] Measure 0=Not Assessed/NA 4=Minimal Assistance 1=Total Assistance 5=Supervision or Setup 2=Maximal Assistance 6=Modified [place] 3=Moderate Assistance 7=Complete [place] Bed Mobility: 6 Transfers (B,C,W/C) (FIM): 6 Gait: 6 uses cane or FWW at home PLOF PT Evaluation-Current Subjective Patient is very agreeable to participate with PT. Pain Numeric Pain Scale: 3 Location: Left Location Body Site: Side Pain Description: Ache, Pressure Objective Patient Orientation: Normal For Age Problem Solving: Good Attachments: IV ROM/Strength ROM Lower Extremities bilateral LE WNL Strength Lower Extremities right knee flexion/extension 4/5; hip flexion 4/5; DF/PF 4/5; abd/add 4/5 left knee flexion/extension 4/5; hip flexion 4/5; DF/PF 4/5; abd/add 4/5 Integumentary/Posture Integumentary refer to nursing notes Bowel Incontinence: No Bladder Incontinence: No Posture scoliosis Neuromuscular (Tone, Coordination, Reflexes) grossly intact Sensory Vision: Wears Glasses Hearing: Functional Sensation Right Lower Extremit: Intact Sensation Left Lower Extremity: Intact Transfers Functional [place] Measure 0=Not Assessed/NA 4=Minimal Assistance 1=Total Assistance 5=Supervision or Setup 2=Maximal Assistance 6=Modified [place] 3=Moderate Assistance 7=Complete [place] Transfers (B, C, W/C) (FIM): 6 Scootin Rollin Supine to/from Sit: 6 Sit to/from Stand: 6 Gait Mode of Locomotion: Walk Anticipated Mode of Locomotion: Walk Gait (FIM): 6 Distance (FIM): 3=150 ft Distance: 275' Gait Level of Assist: 6 Gait Assistive Device: FWW Comments/Gait Description safe and functional with FWW Balance Sitting Static: Normal Sitting Dynamic: Normal Standing Static: Normal Standing Dynamic: Normal Assessment/Needs 72 y.o. female, will be seen short term by skilled PT to address functional mobility to ensure safe return to home at maximum LOF. Rehab Potential: Good PT Short Term Goals Short Term Goals Time Frame: Dec 08, 2017 Transfers (B,C,W/C) (FIM): 6 Gait (FIM): 6 Distance (FIM): 3=150 ft Gait Level of Assist: 6 Gait Assistive Device: FWW PT Plan Treatment/Plan Treatment Plan: Continue Plan of Care Treatment Plan: Education, Functional Activity Manuel, Functional Strength, Gait , Safety, Therapeutic Exercise Treatment Duration: Dec 08, 2017 Frequency: 5 times per week Estimated Hrs Per Day: .25 hour per day Patient and/or Family Agrees t: Yes Discharge Recommendations Therapy D/C Recommendations: Home Independently Time/GCodes Time In: 1006 Time Out: 1026 Total Billed Treatment Time: 20 Total Billed Treatment 1 visit EVMod 20 min NICA ESCOBEDO PT Dec 04, 2017 11:27
[2017-12-04 12:00] VITALS: BP 114/84
[2017-12-04] MEDS ORDERED: FERR325T24 PO (12:56)
[2017-12-04] MEDS ORDERED: ASPI-983 PO (12:56)
[2017-12-04] MEDS ORDERED: VITA400C60 PO (12:56)
[2017-12-04] MEDS ORDERED: ERGO50006 PO (12:56)
[2017-12-04] MEDS ORDERED: ROSU10TA26 PO (12:56)
[2017-12-04] MEDS ORDERED: MIRT45TA5 PO (12:56)
[2017-12-04] MEDS ORDERED: QUET50TA55 PO (12:56)
[2017-12-04] MEDS ORDERED: POTA-51 PO (12:56)
[2017-12-04] MEDS ORDERED: DULO60CA58 PO (12:56)
[2017-12-04] MEDS ORDERED: DOCU-143 PO (12:56)
[2017-12-04] MEDS ORDERED: CETI10TA20 PO (13:02)
[2017-12-04] MEDS ORDERED: VITA150T PO (13:02)
[2017-12-04] MEDS: ENOXAPARIN 40 MG/0.4 ML (LOVENOX) SYR SC SCH (13:35)
[2017-12-04] MEDS ORDERED: AZIT250T12 PO (14:54)
[2017-12-04 15:00] VITALS: BP 114/84
--- NOTE | 2017-12-04 15:01 | Discharge Instructions ---
Discharge [email or web address] Discharge Medications New, Converted or Re-Newed RX: Transmitted to Pharmacy New Medications: Azithromycin (Azithromycin) 250 Mg Tablet 250 MG PO DAILY, #3 TAB Continued Medications: Aspirin (Aspirin EC) 81 Mg Tablet.dr 81 MG PO DAILY, TAB LAST FILLED #28 09-21-17 Cetirizine HCl (Zyrtec) 10 Mg Tablet 10 MG PO DAILY PRN for DRAINAGE, TAB Docusate Sodium (Colace) 100 Mg Capsule 100 MG PO DAILY, CAP LAST FILLED #28 09-21-17 Duloxetine HCl (Duloxetine HCl) 60 Mg Capsule.dr 120 MG PO DAILY, CAP LAST FILLED #56 09-21-17 Ergocalciferol (Vitamin D2) (Vitamin D2) 50,000 Unit Capsule 44629 UNIT PO WEEK, CAP LAST FILLED #4 09-21-17 Escitalopram Oxalate (Lexapro) 20 Mg Tablet 20 MG PO 1800, TAB Ezetimibe (Zetia) 10 Mg Tablet 10 MG PO DAILY, TAB LAST FILLED #28 09-21-17 Ferrous Sulfate (Ferosul) 325 Mg Tablet 325 MG PO TIDWM, TAB LAST FILLED #84 09-21-17 Furosemide (Furosemide) 40 Mg Tablet 40 MG PO DAILY, TAB LAST FILLED #28 09-21-17 Gabapentin (Gabapentin) 600 Mg Tablet 600 MG PO TID, TAB Mirtazapine (Mirtazapine) 45 Mg Tablet 45 MG PO HS, TAB LAST FILLED #28 09-21-17 Morphine Sulfate (Morphine Sulfate) 30 Mg Tablet 30 MG PO BID, TAB Oxycodone HCl/Acetaminophen (Oxycodone-Acetaminophen 10-325) 1 Each Tablet 1 TAB PO TID PRN for PAIN-BREAKTHROUGH, TAB Pantoprazole Sodium (Pantoprazole Sodium) 40 Mg Tablet.dr 40 MG PO DAILY, TAB Potassium Chloride (Potassium Chloride) 20 Meq Tablet.er 20 MEQ PO 5 DAYS PER WEEK, TAB LAST FILLED #20 09-21-17 Quetiapine Fumarate (Quetiapine Fumarate) 50 Mg Tablet 50 MG PO HS, TAB LAST FILLED #28 09-21-17 Rosuvastatin Calcium (Rosuvastatin Calcium) 10 Mg Tablet 10 MG PO DAILY, TAB LAST FILLED #28 09-21-17 Sodium Chloride/Aloe Vera ([place]et Saline Nasal Gel) 14.1 Gm Gel..gram. NS DAILY PRN for DRY NOSE Vitamin B Complex & Vit C No.4 (Super B Complex) 150 Mg Tablet 150 MG PO DAILY, TAB Vitamin E Acetate (Vitamin E) 400 Unit Capsule 400 UNIT PO DAILY, CAP LAST FILLED #28 09-21-17 Patient Instructions Goal/Follow Up Appt: You will get called tomorrow with hospital followup appt Return to The Hospital For: - Worsening shortness of breath - Chest pain - Fever - Unable to tolerate antibiotics Activity & Diet Discharge Diet: No Restrictions Copy Copies To 1: SHANELLE, LEANDRO Longoria MD Dec 04, 2017 15:01
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
== END 2017-12-04 15:00 | disposition home or self-care (01) | DRG 194 ==
LOC: ER 14:56 → 4TH 18:00
PROVIDERS: ADMIT Family Medicine; ATTEND Family Medicine
DX: J18.9 Pneumonia, unspecified organism (principal); F11.23 Opioid dependence with withdrawal; G25.2 Other specified forms of tremor; R19.7 Diarrhea, unspecified; G89.4 Chronic pain syndrome; M25.551 Pain in right hip; M25.552 Pain in left hip; M54.9 Dorsalgia, unspecified; R55 Syncope and collapse; J44.9 Chronic obstructive pulmonary disease, unspecified; E11.9 Type 2 diabetes mellitus without complications; Z23 Encounter for immunization; G47.30 Sleep apnea, unspecified; E78.00 Pure hypercholesterolemia, unspecified; K21.9 Gastro-esophageal reflux disease without esophagitis; F41.9 Anxiety disorder, unspecified; F32.9 Major depressive disorder, single episode, unspecified; M19.91 Primary osteoarthritis, unspecified site; Z99.81 Dependence on supplemental oxygen; Z98.84 Bariatric surgery status; Z96.653 Presence of artificial knee joint, bilateral; Z96.611 Presence of right artificial shoulder joint; Z96.612 Presence of left artificial shoulder joint; Z87.891 Personal history of nicotine dependence; Z86.73 Personal history of transient ischemic attack (TIA), and cerebral infarction without residual deficits; Z86.19 Personal history of other infectious and parasitic diseases; Z91.81 History of falling; Z98.890 Other specified postprocedural states
CPT/HCPCS: 36415; 51702; 70450; 71045; 73502; 80053; 81000; 82962; 83605; 85007; 85025; 85027; 85610; 85730; 86141; 87040; 87804; 94640; 94664; 94760; 96365

== ENCOUNTER 2018-01-01 05:36 | Outpatient (CLI) | payer MEDICARE ==
[~2018-01-01] VITALS: Ht 147.3 cm; Wt 90.3 kg
[~2018-01-01 05:36] MED LIST changes: +ASPI-983 PO; +ASPI-999 PO; +AZIT250T12 PO; +CETI10TA20 PO; +DOCU-143 PO; +DULO60CA58 PO; +ERGO50006 PO; +FERR325T24 PO; +MIRT45TA5 PO; +MORP30TA PO; +POTA-51 PO; +QUET50TA55 PO; +ROSU10TA26 PO; +VITA150T PO; +VITA400C60 PO
== END 2018-01-01 15:34 ==
LOC: PREOP 05:36
PROVIDERS: ATTEND Internal Medicine
DX: Z01.818 Encounter for other preprocedural examination (principal); Z12.11 Encounter for screening for malignant neoplasm of colon; Z86.010 Personal history of colon polyps; R13.10 Dysphagia, unspecified; R10.13 Epigastric pain; R10.12 Left upper quadrant pain

== ENCOUNTER 2018-01-05 07:50 | Day surgery (SDC) | payer MEDICARE ==
--- NOTE | 2017-12-30 15:25 | HISTORY AND PHYSICAL ---
DATE OF SERVICE: ADDENDUM SUMMARY HISTORY OF PRESENT ILLNESS: The patient is a 72-year-old white female referred by Dr. Bruno for a screening colonoscopy and diagnostic EGD due to past history of colon polyps and ongoing intermittent dysphagia to solids. She was originally seen on 11/20/2017 and scheduled for early November, but rescheduled to 01/05. She was seen again on 12/30. There have been no changes in her health history. Continued to have intermittent dysphagia to solids only. PHYSICAL EXAMINATION: GENERAL: Revealed a well-appearing white female in no acute distress. VITAL SIGNS: Blood pressure 128/76. CHEST: Clear. CARDIOVASCULAR: Regular rate and rhythm without murmur, S3 or S4. ASSESSMENT: The patient was rescheduled for diagnostic EGD and screening colonoscopy on 01/05 with no medical contraindications to proceeding with planned procedure. Job ID: [id number] DocumentID: [id number] Dictated Date: 12/30/2017 15:06:28 Solar Field Installation Crew Member Date: 12/30/2017 15:24:58 Dictated By: MARK STANLEY MD [facility]
[~2018-01-05] VITALS: Ht 147.3 cm; Wt 90.3 kg
--- NOTE | 2018-01-05 08:00 | Pre-Op Note & Conscious Sedat ---
Pre-Operative Progress Note H&P Reviewed The H&P was reviewed, patient examined and no changes noted. Date H&P Reviewed: Jan 05, 2018 Time H&P Reviewed: 08:00 Conscious Sedation Pre-Proced ASA Class: 2 Airway Mallampati Classification: ([place] appropriate class) I. II. III, IV Lungs Heart ASA score ASA 1: a normal healthy patient ASA 2: a patient with a mild systemic disease (mid diabetes, controlled hypertension, obesity ASA 3: a patient with a severe systemic disease that limits activity (angina , COPD, prior Myocardial infarction) ASA 4: a patient with an incapacitating disease that is a constant threat to life (CHF, renal failure) ASA 5: a moribund patient not expected to survive 24 hrs. (ruptured aneurysm) ASA 6: a declared brain patient whose organs are being harvested. For emergent operations, add the letter E after the classification Grade 2 Sedation Plan: Analgesia, Amnesia, Plan communicated to team members, Discussed options with patient/fam, Discussed risks with patient/fam Note The patient is an appropriate candidate to undergo the planned procedure, sedation, and anesthesia. The patient immediately re-assessed prior to indication. MARK STANLEY MD Jan 05, 2018 08:00
[2018-01-05 08:30] VITALS: BP 117/86
[2018-01-05] MEDS ORDERED: 1/2 NS IV SOLUTION 1,000 ML IV STA (08:36)
[2018-01-05] MEDS ORDERED: 1/2 NS IV SOLUTION 1,000 ML IV ONE (08:40)
[2018-01-05] MEDS ORDERED: fentaNYL INJECTION 100 MCG/2 ML AMP IVP PRN (08:45)
[2018-01-05] MEDS ORDERED: LIDOCAINE JELLY 2% (XYLOCAINE) 5 ML TUBE MM PRN (08:45)
[2018-01-05] MEDS ORDERED: HURRICAINE EXT TUBE (BENZOCAINE) XX PRN (08:45)
[2018-01-05] MEDS ORDERED: MIDAZOLAM 2 MG/2 ML (VERSED) VIAL ONE ×2 (09:13)
[2018-01-05] MEDS ORDERED: fentaNYL INJECTION 100 MCG/2 ML AMP ONE (09:14)
[2018-01-05] MEDS ORDERED: HURRICAINE EXT TUBE (BENZOCAINE) ONE (09:14)
[2018-01-05] MEDS: MIDAZOLAM 2 MG/2 ML (VERSED) VIAL IVP PRN ×2 (09:50→10:34)
[2018-01-05] MEDS ORDERED: LIDOCAINE JELLY 2% (XYLOCAINE) 5 ML TUBE ONE (09:53)
[2018-01-05 11:05] VITALS: BP 131/89
[2018-01-05 11:50] VITALS: BP 138/90
[2018-01-05 12:05] VITALS: BP 138/90
--- NOTE | 2018-01-05 22:21 | OPERATIVE REPORT ---
DATE OF SERVICE: PANENDOSCOPY SUMMARY REFERRING PHYSICIAN: Dr. Bernardo Larios. Panendoscopy was performed for screening colonoscopy with strong family history for colon cancer and EGD is performed for dysphagia with a reported history of gastric bypass. The patient was placed in left lateral decubitus position. Prior to doing colonoscopy, digital rectal evaluation was performed. Anal sphincter tone was normal and the perianal reflex was intact. There is a small grade I internal hemorrhoid complex noted, nonthrombosed, nontender to digital inspection. The colonoscope was then inserted into the rectum under direct visualization advanced to the cecum. The cecum was identified by identification of the of ileocecal valve and cecal strap. Photographic documentation was obtained. Careful inspection was made as the colonoscope was withdrawn. FINDINGS: Other than one small grade I internal hemorrhoid complex, no other abnormalities were noted involving the anal canal. The rectum was unremarkable. The sigmoid colon was redundant with significant haustral hypertrophy. Only several small sigmoid diverticulum were appreciated with no evidence for diverticulitis. The presence in the proximal descending colon was a diminutive 5 mm sessile adenomatous appearing polyp, was biopsied, ablated and submitted for histopathology. A similar size in appearance polyp was noted at the splenic flexure, was biopsied and ablated and submitted with minimal blood loss. An 8 mm sessile noninflamed appearing polyp was removed from the mid ascending colon via hot forceps as well with no significant blood loss. The remainder of the colon was unremarkable. ASSESSMENT: 1. Small internal grade I hemorrhoid complex was noted, nonthrombosed. 2. Significant haustral hypertrophy with redundant sigmoid colon was noted, only 2 small diverticulum were noted without evidence for diverticulitis. 3. Three small polyps were removed via hot forceps as noted above. We will await on histopathology report before making recommendations for screening colonoscopy. The patient is aware of 1 first degree relative and several second degree relatives that have been diagnosed with colon cancer in the past. We then proceeded with an EGD. The endoscope was inserted in the oral cavity and under direct visualization esophagus intubated. The endoscope was passed down the esophagus through the stomach and the second portion of the duodenum. A careful inspection was made as the endoscope was withdrawn. The patient tolerated the procedure well. FINDINGS: The esophagus was unremarkable. There was no evidence of rings, webs strictures, Trejo's change or erosive esophagitis. Gastric findings are compatible with an intact gastric bypass and what remains of the small gastric pouch, there is some distal beefy red erythema compatible with alkaline bile reflux. There is also a small shallow marginal ulcer at the surgical anastomosis. A biopsy was obtained and submitted for Helicobacter. No evidence for obstruction or stricturing were noted. No other abnormalities were noted. ASSESSMENT: There is intact gastric bypass, presents with findings suggesting alkaline bile reflux involving the distal gastric remnant as well as a small distal marginal ulcer at the anastomotic margin of the small intestine and the gastric remnant. Biopsies were obtained and are pending for Helicobacter evaluation. It was advised the patient discontinue her daily aspirin and continue pantoprazole in the interim. She was reassured by today's findings. We discussed the importance of careful attention to mastication small bites easier to chew foods. Job ID: [id number] DocumentID: [id number] Dictated Date: 01/05/2018 13:02:11 Web Press Operator Helper Offset Date: 01/05/2018 22:20:16 Dictated By: MARK STANLEY MD [facility]
== END 2018-01-05 12:05 | disposition home or self-care (01) ==
LOC: ENDO 07:50
PROVIDERS: ATTEND Internal Medicine
DX: Z12.11 Encounter for screening for malignant neoplasm of colon (principal); D12.2 Benign neoplasm of ascending colon; D12.3 Benign neoplasm of transverse colon; D12.4 Benign neoplasm of descending colon; K57.30 Diverticulosis of large intestine without perforation or abscess without bleeding; K64.0 First degree hemorrhoids; K25.9 Gastric ulcer, unspecified as acute or chronic, without hemorrhage or perforation; R13.10 Dysphagia, unspecified; Z86.010 Personal history of colon polyps; Z80.0 Family history of malignant neoplasm of digestive organs; Z98.84 Bariatric surgery status

== ENCOUNTER 2018-04-21 15:57 | Emergency (ER) | payer MEDICARE ==
[~2018-04-21] VITALS: Ht 147.3 cm; Wt 90.3 kg
[~2018-04-21 15:57] MED LIST changes: -ROSU10TA26 PO; +ROSU10TA27 PO
[2018-04-21] MEDS ORDERED: oxyCODONE/APAP 5/325MG (PERCOCET 5) TABLET PO STA (16:49)
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
--- NOTE | 2018-04-21 17:40 | Diagnostic Imaging Report ---
PROCEDURE: CT head and CT cervical spine without contrast. TECHNIQUE: Multiple contiguous axial images were obtained through the brain and cervical spine without the use of intravenous contrast. Sagittal and coronal reformations through the cervical spine were then performed. INDICATION: Falling three times in the last two weeks. Headache and neck pain. EXAMINATION: CT brain and CT cervical spine, 04/21/2018. COMPARISON: CT brain from 12/01/2017. CT HEAD: No hemorrhage or infarct is seen. No mass, mass effect or midline shift noted. Mild atrophy is seen. No hydrocephalus. Calvarium appears intact. CT CERVICAL SPINE: Comparison may with cervical spine dated 08/04/2015. There is grade 1 anterolisthesis of C3 on C4, similar to the previous examination. Intervertebral disc space narrowing at this level is seen with anterior spurring. Multilevel diffuse degenerative findings as well as subchondral cystic changes seen throughout the remaining spine, especially at C4-C5, C5-C6 and C6-C7. Artifact in the lower cervical region limits evaluation but no obvious abnormality is appreciated. Multilevel bilateral facet hypertrophy is seen. Multilevel spur disc complexes suspected into the canal. No obvious significant central stenosis is seen but this is better rightward with MRI, as clinically warranted. The visualized prevertebral soft tissues are unremarkable. Lung apices are unremarkable. IMPRESSION: 1. Marked diffuse degenerative findings, as described, with grade 1 anterolisthesis of C3-C4 stable from prior. No definite acute abnormality is seen. If symptoms persist, or there is continued clinical question, MRI could provide further characterization. 2. Limited evaluation from the C6 through the C1 levels due to artifact, perhaps patient body habitus or streak artifact from the shoulder prosthesis noted on the stroboscope operator localizer imaging. Dictated by: Dictated on workstation # [id number]
--- NOTE | 2018-04-21 17:48 | Diagnostic Imaging Report ---
INDICATION: Multiple falls, bruising and pain in the right hip. EXAMINATION: Pelvis and right hip, 04/21/2018. COMPARISON: 12/01/2017. FINDINGS: Postoperative change seen in the visualized lumbar spine and lower abdomen. Within the pelvis the sacrum is not well evaluated due to overlying bowel gas and stool. The visualized osseous structures demonstrate no evidence for acute fracture or dislocation. IMPRESSION: No evidence for an acute osseous abnormality. However, if pain persists, further imaging may be warranted. Dictated by: Dictated on workstation # [id number]
[2018-04-21 18:28] VITALS: BP 130/75
== END 2018-04-21 18:15 | disposition home or self-care (01) ==
LOC: EDUNIT# 15:57 → ER 16:00
DX: S09.90XA Unspecified injury of head, initial encounter (principal); S70.01XA Contusion of right hip, initial encounter; R40.2142 Coma scale, eyes open, spontaneous, at arrival to emergency department; R40.2252 Coma scale, best verbal response, oriented, at arrival to emergency department; R40.2362 Coma scale, best motor response, obeys commands, at arrival to emergency department; J44.9 Chronic obstructive pulmonary disease, unspecified; E78.00 Pure hypercholesterolemia, unspecified; G47.30 Sleep apnea, unspecified; K21.9 Gastro-esophageal reflux disease without esophagitis; E11.9 Type 2 diabetes mellitus without complications; F41.9 Anxiety disorder, unspecified; F32.9 Major depressive disorder, single episode, unspecified; Z87.19 Personal history of other diseases of the digestive system; Z86.73 Personal history of transient ischemic attack (TIA), and cerebral infarction without residual deficits; Z90.710 Acquired absence of both cervix and uterus; Z87.39 Personal history of other diseases of the musculoskeletal system and connective tissue; Z98.84 Bariatric surgery status; Z98.890 Other specified postprocedural states; Z87.891 Personal history of nicotine dependence; Z88.0 Allergy status to penicillin; Z88.8 Allergy status to other drugs, medicaments and biological substances; W01.0XXA Fall on same level from slipping, tripping and stumbling without subsequent striking against object, initial encounter
CPT/HCPCS: 70450; 72125

== ENCOUNTER 2018-06-27 22:47 | Emergency (ER) | payer MEDICARE ==
[~2018-06-27] VITALS: Ht 147.3 cm; Wt 85.3 kg
[~2018-06-27 22:47] MED LIST changes: +HYDR-4196 PO; -HYDR-753 PO; -MIRT45TA5 PO; +MIRT45TA75 PO; -OXYC-202 PO; +OXYC1TAB12 PO; -POTA-51 PO
[2018-06-28] MEDS ORDERED: oxyCODONE/APAP 5/325MG (PERCOCET 5) TABLET PO ONE (01:30)
--- NOTE | 2018-06-28 01:34 | ED Fall/Injury ---
General Chief Complaint: Upper Extremity Stated Complaint: FALL/L SIDE PAIN Nursing Triage Note: Pt states she slipped on water when mopping the floor. Pt fell on left side and bottom hitting a plastic tote on the way down. Pt c/o left wrist and hip pain. Pt denies hitting head or losing consciousness. Source: patient Exam Limitations: no limitations History of Present Illness Date Seen by Provider: Jun 27, 2018 Time Seen by Provider: 23:37 Initial Comments This 72-year-old woman presents emergency room after having a fall in her home. She was mopping and did not notice some water on the floor where she was standing. She slipped on the water and fell. She landed in the sitting position. She landed on a plastic storage container which broke. She did not strike her head or injure her neck. There is no loss of consciousness. She complains of pain in the left wrist and the left hip. Patient has been ambulatory. Allergies and Home Medications Allergies Coded Allergies: Penicillins (Unverified Allergy, Mild, PT DOES NOT REMEMBER RXN > 30 YRS, 04/21/18) Pt has received Cefepime & Ceftriaxone w/o issue nalbuphine (Unverified Allergy, Mild, 04/23/09) Home Medications Cetirizine HCl 10 Mg Tablet, 10 MG PO DAILY PRN for DRAINAGE, (Reported) Docusate Sodium 100 Mg Capsule, 100 MG PO DAILY, (Reported) Duloxetine HCl 60 Mg Capsule.dr, 120 MG PO DAILY, (Reported) Ergocalciferol (Vitamin D2) 50,000 Unit Capsule, 50,000 UNIT PO WEEK, (Reported) Escitalopram Oxalate 20 Mg Tablet, 20 MG PO 1800, (Reported) Ezetimibe 10 Mg Tablet, 10 MG PO DAILY, (Reported) Ferrous Sulfate 325 Mg Tablet, 325 MG PO TIDWM, (Reported) Furosemide 40 Mg Tablet, 40 MG PO DAILY, (Reported) Gabapentin 600 Mg Tablet, 600 MG PO TID, (Reported) Mirtazapine 45 Mg Tablet, 45 MG PO HS, (Reported) Morphine Sulfate 30 Mg Tablet, 30 MG PO BID, (Reported) Oxycodone HCl/Acetaminophen 1 Each Tablet, 1 TAB PO TID PRN for PAIN- BREAKTHROUGH, (Reported) Pantoprazole Sodium 40 Mg Tablet.dr, 40 MG PO DAILY, (Reported) Potassium Chloride 20 Meq Tablet.er, 20 MEQ PO 5 DAYS PER WEEK, (Reported) Quetiapine Fumarate 50 Mg Tablet, 50 MG PO HS, (Reported) Rosuvastatin Calcium 10 Mg Tablet, 10 MG PO DAILY, (Reported) Sodium Chloride/Aloe Vera 14.1 Gm Gel..gram., NS DAILY PRN for DRY NOSE, ( Reported) Vitamin B Complex & Vit C No.4 150 Mg Tablet, 150 MG PO DAILY, (Reported) Vitamin E Acetate 400 Unit Capsule, 400 UNIT PO DAILY, (Reported) Patient Home Medication List Home Medication List Reviewed: Yes Review of Systems Review of Systems Constitutional: no symptoms reported Eyes: No Symptoms Reported Ears, Nose, Mouth, Throat: no symptoms reported Respiratory: no symptoms reported Cardiovascular: no symptoms reported Gastrointestinal: no symptoms reported Genitourinary: no symptoms reported : No Musculoskeletal: see HPI Skin: no symptoms reported Psychiatric/Neurological: No Symptoms Reported Past Zeorekc-Fmvjct-Arfezx Hx Past Med/Social Hx: Reviewed Nursing Past Med/Soc Hx Patient Social History Alcohol Use: Denies Use Recreational Drug Use: No Former Smoker, Quit: Aug 05, 1992 Recent Foreign Travel: No Contact w/Someone Who Travel: No Recent Infectious Disease Expo: No Recent Hopitalizations: No Physical Abuse: No Sexual Abuse: No Immunizations Up To Date Tetanus Booster (TDap): More than 5yrs Date of Pneumonia Vaccine: Oct 01, 2010 Date of Influenza Vaccine: Dec 03, 2017 Seasonal Allergies Seasonal Allergies: Yes Past Medical History Surgeries: Yes (RIGHT ANKLE, BILAT TOTAL KNEE, GASTRIC BYPASS, L ROTATOR CUFF REPAIR 01/04,) Gallbladder, Hysterectomy, Orthopedic Respiratory: Yes ( mild sleep apnea-) Sleep Apnea, COPD Currently Using CPAP: No Currently Using BIPAP: No Cardiac: Yes High Cholesterol Neurological: Yes (fell from a three story building in concussion, concusion from fall) TIA Reproductive Disorders: No Female Reproductive Disorders: Menstrual 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 Genitourinary: No Gastrointestinal: Yes (hepatitis in 1979 not sure which type) Colitis, Gastroesophageal Reflux, Chronic Constipation, Hepatitis Musculoskeletal: Yes (, broken back ) Arthritis, Back Injury, Chronic Back Pain Endocrine: No Diabetes, Non-Insulin dep Cataract Loss of Vision: Denies Hearing Impairment: Hard of Hearing Cancer: Yes (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) Psychosocial: Yes Anxiety, Depression Integumentary: No Blood Disorders: Yes (ANEMIA) Adverse Reaction/Blood Tranf: No Family Medical History Alzheimer's disease (MOTHER) Cancer (FATHER LIVER CA SISTER CA) Cardiovascular disease G8 SISTER Dementia FH: lupus (SISTER) Family history: Cardiovascular disease Family history: Diabetes mellitus Family history: Hypertension Heart disease Heart Disease, Cancer, Hypertension, Psychiatric Problems, Vascular Disease Physical Exam Vital Signs Vital Signs - First Documented 06/27/18 22:54 Temp 99.3 Pulse 93 Resp 18 B/P (MAP) 140/71 (94) Pulse Ox 97 O2 Delivery Room Air Capillary Refill : Less Than 3 Seconds Height, Weight, BMI Height: 4'10.00" Weight: 188lbs. 0.0oz. [id number]; 41.6 BMI Method:Stated General Appearance: WD/WN, no apparent distress HEENT: PERRL/EOMI, normal ENT inspection Neck: normal inspection Cardiovascular: regular rate, rhythm, no edema, no murmur Respiratory: lungs clear, normal breath sounds, no respiratory distress Gastrointestinal: non tender, soft Extremities: other (non-focal tenderness around the left wrist. Elbow is unremarkable. Shoulder is tender with unchanged chronic pain. Sensation and capillary refill intact in the fingers. Range of motion in the wrist limited by pain. 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, no motor/sensory deficits, alert, normal mood/affect, oriented x 3 Skin: normal color, warm/dry [place] Coma Score Best Eye Response: (4) Open Spontaneously Best Verbal Response: (5) Oriented Best Motor Response: (6) Obeys Commands [place] Total: 15 Progress/Results/Core Measures Results/Orders My Orders Orders - AIRAM MARVIN MD Wrist, Left, 3 Views Or More (06/28/18 00:01) Pelvis With Left Hip 2-3 Views (06/28/18 00:01) Oxycodone/Apap 5/325mg Tablet (Percocet (06/28/18 01:30) Medications Given in ED Current Medications Medications Dose Ordered Sig/Anila Route Start Time Stop Time Status Last Admin Dose Admin Oxycodone/ Acetaminophen 1 tab ONCE ONCE PO 06/28/18 01:30 06/28/18 01:31 DC 06/28/18 01:42 1 TAB Vital Signs/I&O 06/27/18 06/28/18 22:54 01:43 Temp 99.3 99.0 Pulse 93 82 Resp 18 15 B/P (MAP) 140/71 (94) 136/74 (94) Pulse Ox 97 99 O2 Delivery Room Air Room Air Blood Pressure Mean: 94 Progress Progress Note : Progress Note I discussed options with patient which included potentially sending images to [facility] versus splinting and allowing her to follow-up with her orthopedist. Patient prefers a simple AlumaFoam splint and follow-up. This was applied. Patient was given a Percocet prior to dismissal for pain control. She actually has an appointment with Dr. Rossi next Monday. Diagnostic Imaging Diagonstic Imaging: Xray Plain Films/CT/US/NM/MRI: pelvis, hip Comments X-ray of the pelvis and left hip viewed by me. Report not yet available. No acute abnormalities appreciated. Diagonstic Imaging: Xray Plain Films/CT/US/NM/MRI: other (left wrist) Comments Left wrist x-ray viewed by me. Report not yet available. There are significant degenerative changes to the distal ulna. Subtle fracture cannot be completely ruled out. Departure Impression Primary Impression: Fall on same level from slipping as cause of accidental injury Additional Impressions: Left wrist injury Qualified Codes: S69.92XA - Unspecified injury of left wrist, hand and finger( s), initial encounter Left hip pain Disposition: HOME, SELF-CARE Condition: Improved Departure-Patient Inst. Decision time for Depature: 01:32 Referrals: HEATHER ROSSI DO (PCP) Primary Care Physician Patient Instructions: Common Wrist Injuries Add. Discharge Instructions: Keep the wrist splint on as much as possible. Follow-up with Dr. Rossi as soon as possible. You may take your oxycodone as previously prescribed. Icing in 20 minute intervals and elevation should be helpful for reducing pain and swelling. Return to care if you have any worsening of symptoms or other concerns. All discharge instructions reviewed with patient and/or family. Voiced understanding. Copy Copies To 1: HEATHER ROSSI JOSHUA T MD Jun 28, 2018 01:34
[2018-06-28 01:43] VITALS: BP 136/74
--- NOTE | 2018-06-28 06:43 | Diagnostic Imaging Report ---
INDICATION: Left hip pain AP view pelvis and 2 views of the left hip show no fracture, dislocation or other acute abnormalities. IMPRESSION: Negative pelvis and left hip. Dictated by: Dictated on workstation # [id number]
--- NOTE | 2018-06-28 06:45 | Diagnostic Imaging Report ---
INDICATION: Left wrist injury from a fall 3 views of the left wrist show some degenerative change of the distal radioulnar joint. There is no fracture, dislocation or acute abnormality seen. IMPRESSION: No acute abnormalities in the left wrist. Dictated by: Dictated on workstation # [id number]
[2018-07-05] MEDS ORDERED: POTA-51 PO (12:56)
== END 2018-06-28 01:43 | disposition home or self-care (01) ==
LOC: EDUNIT# 22:47 → ER 22:48
DX: S69.92XA Unspecified injury of left wrist, hand and finger(s), initial encounter (principal); M25.552 Pain in left hip; G47.30 Sleep apnea, unspecified; J44.9 Chronic obstructive pulmonary disease, unspecified; E78.00 Pure hypercholesterolemia, unspecified; K21.9 Gastro-esophageal reflux disease without esophagitis; F41.9 Anxiety disorder, unspecified; F32.9 Major depressive disorder, single episode, unspecified; E11.9 Type 2 diabetes mellitus without complications; R40.2142 Coma scale, eyes open, spontaneous, at arrival to emergency department; R40.2252 Coma scale, best verbal response, oriented, at arrival to emergency department; R40.2362 Coma scale, best motor response, obeys commands, at arrival to emergency department; Z85.828 Personal history of other malignant neoplasm of skin; Z87.19 Personal history of other diseases of the digestive system; Z86.73 Personal history of transient ischemic attack (TIA), and cerebral infarction without residual deficits; Z80.0 Family history of malignant neoplasm of digestive organs; Z82.49 Family history of ischemic heart disease and other diseases of the circulatory system; Z88.0 Allergy status to penicillin; Z88.8 Allergy status to other drugs, medicaments and biological substances; Z87.891 Personal history of nicotine dependence; Z98.84 Bariatric surgery status; Z96.653 Presence of artificial knee joint, bilateral; Z90.710 Acquired absence of both cervix and uterus; W01.0XXA Fall on same level from slipping, tripping and stumbling without subsequent striking against object, initial encounter
CPT/HCPCS: 73110

== ENCOUNTER 2018-07-05 13:03 | Outpatient (RCR) | payer MEDICARE ==
[~2018-07-05 13:03] MED LIST changes: +POTA-51 PO
[2018-07-05] MEDS ORDERED: SIMV20TA3 PO (18:01)
[2018-07-05] MEDS ORDERED: BUSP5TAB59 PO (18:01)
[2018-07-05] MEDS ORDERED: ASPI81TA55 PO (18:01)
[2018-07-05] MEDS ORDERED: CYCL5TAB PO (18:01)
[2018-07-05] MEDS ORDERED: MORP-34 PO (18:01)
[2018-07-07] MEDS ORDERED: FLUT1DIS26 IH (12:59)
[2018-07-07] MEDS ORDERED: TIOT18CA2 IH (12:59)
== END 2018-07-23 13:24 | disposition home or self-care (01) ==
PROVIDERS: ATTEND Orthopaedic Surgery
DX: M25.512 Pain in left shoulder (principal); M47.892 Other spondylosis, cervical region; M50.30 Other cervical disc degeneration, unspecified cervical region

== ENCOUNTER 2018-07-05 15:01 | Observation (INO) | payer MEDICARE ==
[~2018-07-05] VITALS: Ht 147.3 cm; Wt 87.2 kg
[2018-07-05 16:40] VITALS: BP 124/78
[2018-07-05] MEDS ORDERED: DOCUSATE SODIUM 100 MG (COLACE) CAP PO PRN ×2 (17:00→19:45)
[2018-07-05] MEDS ORDERED: PATIENT MAY USE OWN MEDS, ALL PO SCH (17:00)
[2018-07-05] MEDS: ENOXAPARIN 40 MG/0.4 ML (LOVENOX) SYR SC SCH (17:20)
[2018-07-05 17:33] LABS: BASOPHILS % (AUTO) 0 % (0-10); EOSINOPHILS # (AUTO) 0.1 10^3/uL (0.0-0.3); EOSINOPHILS % (AUTO) 1 % (0-10); HEMATOCRIT 36 % (35-52); HEMOGLOBIN 11.4 G/DL (11.5-16.0); LYMPHOCYTES # (AUTO) 1.8 X 10^3 (1.0-4.0); LYMPHOCYTES % (AUTO) 30 % (12-44); MEAN CORPUSCULAR HEMOGLOBIN 29 PG (25-34); MEAN CORPUSCULAR HGB CONC 31 G/DL (32-36); MEAN CORPUSCULAR VOLUME 93 FL (80-99); MEAN PLATELET VOLUME 9.3 FL (7.4-10.4); MONOCYTES # (AUTO) 0.6 X 10^3 (0.0-1.0); MONOCYTES % (AUTO) 10 % (0-12); NEUTROPHILS # (AUTO) 3.5 X 10^3 (1.8-7.8); NEUTROPHILS % (AUTO) 59 % (42-75); PLATELET COUNT 260 10^3/uL (130-400); RED CELL DISTRIBUTION WIDTH 14.6 % (10.0-14.5); WHITE BLOOD COUNT 5.9 10^3/uL (4.3-11.0)
[2018-07-05 17:54] LABS: ALANINE AMINOTRANSFERASE 13 U/L (0-55); ALBUMIN 3.2 GM/DL (3.2-4.5); ALKALINE PHOSPHATASE 108 U/L (40-136); BILIRUBIN,TOTAL 0.3 MG/DL (0.1-1.0); BUN/CREATININE RATIO 14; CALCIUM 8.3 MG/DL (8.5-10.1); CARBON DIOXIDE 21 MMOL/L (21-32); CHLORIDE 105 MMOL/L (98-107); CREATININE SERUM 0.74 MG/DL (0.60-1.30); GFR ESTIMATED > 60; GLUCOSE 98 MG/DL (70-105); POTASSIUM 3.5 MMOL/L (3.6-5.0); SODIUM 138 MMOL/L (135-145); TOTAL PROTEIN 5.9 GM/DL (6.4-8.2)
[2018-07-05] MEDS ORDERED: BUSP5TAB59 PO (18:01)
[2018-07-05] MEDS ORDERED: SIMV20TA3 PO (18:01)
[2018-07-05] MEDS ORDERED: ASPI81TA55 PO (18:01)
[2018-07-05] MEDS ORDERED: CYCL5TAB PO (18:01)
[2018-07-05] MEDS ORDERED: MORP-34 PO (18:01)
--- NOTE | 2018-07-05 18:24 | Diagnostic Imaging Report ---
EXAMINATION: PA and lateral chest. INDICATION: Hypoxia with cough and wheezing. COMPARISON: Prior study from 12/29/2017. FINDINGS: There is a stable density demonstrated within the right lung most compatible with a granuloma. There are chronic interstitial changes within the lungs. There is flattening of the diaphragms compatible with air trapping. Heart size appears unchanged without findings of congestive failure. Bilateral shoulder arthroplasties are noted. There is also demonstration of a cage device within the lumbar spine. IMPRESSION: Chronic interstitial changes with diaphragmatic flattening compatible with air trapping and probable underlying COPD. No focal infiltrate evident. There is a stable granuloma in the right lung. Heart size is unchanged without findings of congestive failure. Dictated by: Dictated on workstation # [id number]
[2018-07-05 20:23] VITALS: BP 124/78
[2018-07-05] MEDS: MIRTAZAPINE 45 MG TABLET PO SCH (20:34)
[2018-07-05] MEDS: ROSUVASTATIN 10 MG (CRESTOR) TABLET PO SCH (20:37)
[2018-07-05] MEDS: morphine ER 30 MG (MS CONTIN) TAB PO SCH (20:39)
[2018-07-05] MEDS: DOCUSATE SODIUM 100 MG (COLACE) CAP PO SCH (20:40)
[2018-07-05] MEDS ORDERED: GABAPENTIN 600 MG (NEURONTIN) TAB PO SCH (21:00)
[2018-07-05] MEDS ORDERED: MIRTAZAPINE 15 MG (REMERON) TAB PO SCH (21:00)
[2018-07-05] MEDS ORDERED: NON-FORMULARY MEDICATION 1 EA EA (Mirtazapine 45 MG) PO SCH (21:00)
[2018-07-05] MEDS ORDERED: RT-ALBUTEROL SULF 2.5 MG/3 ML PRE-MIX VIAL INH PRN (21:45)
[2018-07-05] MEDS: oxyCODONE/APAP 10/325MG (PERCOCET 10) TABLET PO PRN (22:57)
[2018-07-05 23:02] VITALS: BP 150/72
[2018-07-06 00:48] VITALS: BP 142/68
[2018-07-06] MEDS: oxyCODONE/APAP 10/325MG (PERCOCET 10) TABLET PO PRN ×3 (03:47→22:17)
[2018-07-06 04:14] VITALS: BP 125/82
[2018-07-06] MEDS: morphine ER 30 MG (MS CONTIN) TAB PO SCH ×2 (06:13→17:47)
[2018-07-06] MEDS: PANTOPRAZOLE 40 MG (PROTONIX) TAB PO SCH (06:13)
[2018-07-06] MEDS ORDERED: morphine ER 30 MG (MS CONTIN) TAB PO SCH (07:00)
[2018-07-06 08:15] VITALS: BP 143/84
[2018-07-06] MEDS: RT-ALBUTEROL SULF 2.5 MG/3 ML PRE-MIX VIAL INH SCH ×2 (08:31→19:52)
[2018-07-06] MEDS: GABAPENTIN 600 MG (NEURONTIN) TAB PO SCH ×3 (08:59→19:59)
[2018-07-06] MEDS ORDERED: KCL 20 MEQ TAB (K-DUR) PO SCH ×2 (09:00)
[2018-07-06] MEDS ORDERED: ROSUVASTATIN 10 MG (CRESTOR) TABLET PO SCH (09:00)
[2018-07-06] MEDS: DULOXETINE 60 MG PO SCH (09:00)
[2018-07-06] MEDS ORDERED: NON-FORMULARY MEDICATION 1 EA EA (Duloxetine HCl 120 MG) PO SCH (09:00)
[2018-07-06] MEDS ORDERED: DULoxetine 30 MG (CYMBALTA) CAP PO SCH (09:00)
[2018-07-06] MEDS ORDERED: DOCUSATE SODIUM 100 MG (COLACE) CAP PO SCH (09:00)
[2018-07-06] MEDS ORDERED: ASPIRIN 81 MG PO SCH (09:00)
[2018-07-06] MEDS: FUROSEMIDE 40 MG (LASIX) TAB PO SCH (09:01)
[2018-07-06] MEDS: DOCUSATE SODIUM 100 MG (COLACE) CAP PO SCH (09:03)
[2018-07-06] MEDS: ASPIRIN E.C. 81 MG (ECOTRIN) TAB PO SCH (09:06)
[2018-07-06] MEDS: predniSONE 20 MG TAB PO SCH (09:06)
[2018-07-06 12:43] VITALS: BP 160/80
--- NOTE | 2018-07-06 16:09 | History & Physicial (CHS) ---
LOYD HOLLEY MEDICAL STUDENT 07/06/18 1609: HPI History of Present Illness: 72 yo white woman presents today after direct admit from [facility] yesterday. She reports that she has been wheezing and having an unproductive cough for the last three weeks. Pt notes she ran out of her Advair inhaler a month ago and has not gotten a new script. She notes that she was diagnosed with COPD four years ago and prescribed home oxygen. She then moved to [place] and lost all coordination of care. She has not had home oxygen for a year now. Pt sees Dr. Larios at [facility]. Pt also has chronic pain, which she rates as a 7 out 10 today , due to a fall from a third story window in 1967. Source: patient Exam Limitations: no limitations Date seen by provider: Jul 06, 2018 Time Seen by Provider: 10:45 Attending Physician Kathia Ellis MD PCP Chung Funez DO Consult Date of Admission Jul 05, 2018 at 16:25 Home Medications Home Medications Reviewed patient Home Medication Reconciliation performed by pharmacy medication reconciliations ergonomics technician and/or nursing. Patients Allergies have been reviewed. Allergies Coded Allergies: Penicillins (Unverified Allergy, Mild, PT DOES NOT REMEMBER RXN > 30 YRS, 04/21/18) Pt has received Cefepime & Ceftriaxone w/o issue nalbuphine (Unverified Allergy, Mild, 04/23/09) ISR-Duewqi-Sgdbxg Hx Patient Social History Alcohol Use: Occasionally Uses (1 drink per month) Recreational Drug Use: No Smoking Status: Former Smoker (5 year history; reports second hand smoke as child) Former smoker/When Quit: Aug 15, 1991 Recent Foreign Travel: No Contact w/other who traveled: No Recent Hopitalizations: No Physical Abuse Screen: No Sexual Abuse: No Immunizations Up To Date Tetanus Booster (TDap): More than 5yrs Date of Pneumonia Vaccine: Oct 01, 2010 Date of Influenza Vaccine: Dec 03, 2017 Past Medical History PMHx: Chronic back pain on chronic opiates Sees Dr. Hernandez for heart GERD HLD Anxiety/Depression PSurgHx: Hysterectomy Spinal stimulator Bilateral shoulder replacements Family Medical History Significant Family History: Heart Disease, Cancer, Hypertension, Psychiatric Problems, Vascular Disease Family History: Alzheimer's disease (MOTHER) Cancer (FATHER LIVER CA SISTER CA) Cardiovascular disease G8 SISTER Dementia FH: lupus (SISTER) Family history: Cardiovascular disease Family history: Diabetes mellitus Family history: Hypertension Heart disease Review of Systems (CHC) Constitutional: no symptoms reported Respiratory: cough; No phlegm; short of breath, wheezing Cardiovascular: no symptoms reported Gastrointestinal: no symptoms reported Musculoskeletal: back pain Psychiatric/Neurological: Anxiety Reviewed Test Results Reviewed Test Results Lab Laboratory Tests Test 07/05/18 17:20 Range/Units White Blood Count 5.9 4.3-11.0 10^3/uL Red Blood Count 3.90 L 4.35-5.85 10^6/uL Hemoglobin 11.4 L 11.5-16.0 G/DL Hematocrit 36 35-52 % Mean Corpuscular Volume 93 80-99 FL Mean Corpuscular Hemoglobin 29 25-34 PG Mean Corpuscular Hemoglobin Concent 31 L 32-36 G/DL Red Cell Distribution Width 14.6 H 10.0-14.5 % Platelet Count 260 130-400 10^3/uL Mean Platelet Volume 9.3 7.4-10.4 FL Neutrophils (%) (Auto) 59 42-75 % Lymphocytes (%) (Auto) 30 12-44 % Monocytes (%) (Auto) 10 0-12 % Eosinophils (%) (Auto) 1 0-10 % Basophils (%) (Auto) 0 0-10 % Neutrophils # (Auto) 3.5 1.8-7.8 X 10^3 Lymphocytes # (Auto) 1.8 1.0-4.0 X 10^3 Monocytes # (Auto) 0.6 0.0-1.0 X 10^3 Eosinophils # (Auto) 0.1 0.0-0.3 10^3/uL Basophils # (Auto) 0.0 0.0-0.1 10^3/uL Sodium Level 138 135-145 MMOL/L Potassium Level 3.5 L 3.6-5.0 MMOL/L Chloride Level 105 98-107 MMOL/L Carbon Dioxide Level 21 21-32 MMOL/L Anion Gap 12 5-14 MMOL/L Blood Urea Nitrogen 10 7-18 MG/DL Creatinine 0.74 0.60-1.30 MG/DL Estimat Glomerular Filtration Rate > 60 BUN/Creatinine Ratio 14 Glucose Level 98 70-105 MG/DL Lactic Acid Level 1.09 0.50-2.00 MMOL/L Calcium Level 8.3 L 8.5-10.1 MG/DL Corrected Calcium 8.9 8.5-10.1 MG/DL Total Bilirubin 0.3 0.1-1.0 MG/DL Aspartate Amino Transf (AST/SGOT) 19 5-34 U/L Alanine Aminotransferase (ALT/SGPT) 13 0-55 U/L Alkaline Phosphatase 108 40-136 U/L B-Type Natriuretic Peptide 24.4 <100.0 PG/ML Total Protein 5.9 L 6.4-8.2 GM/DL Albumin 3.2 3.2-4.5 GM/DL Radiology CXR showed granuloma in right lung and interstitial changes due to COPD Physical Exam-(CHC) Physical Exam Vital Signs VS - Last 72 Hours, by Label 07/05/18 07/05/18 07/05/18 07/05/18 16:40 18:32 19:50 20:23 Temp 98.0 Pulse 83 Resp 16 B/P (MAP) 124/78 (93) Pulse Ox 98 98 97 94 O2 Delivery Nasal Cannula Nasal Cannula Nasal Cannula O2 Flow Rate 2.00 2.00 2.00 2.00 07/05/18 07/05/18 07/05/18 07/06/18 20:23 23:02 23:02 00:48 Temp 98.4 98.6 Pulse 94 83 89 Resp 20 20 B/P (MAP) 150/72 (98) 142/68 (92) Pulse Ox 94 97 97 O2 Delivery Nasal Cannula Nasal Cannula O2 Flow Rate 2.00 2.00 07/06/18 07/06/18 07/06/18 07/06/18 04:14 08:15 08:31 08:35 Temp 98.3 98.7 Pulse 85 76 Resp 20 20 B/P (MAP) 125/82 (96) 143/84 (103) Pulse Ox 97 95 97 97 O2 Delivery Nasal Cannula Nasal Cannula Nasal Cannula Nasal Cannula O2 Flow Rate 2.00 1.50 2.00 1.00 07/06/18 07/06/18 07/06/18 12:43 14:15 15:30 Temp 97.3 Pulse 89 Resp 22 B/P (MAP) 160/80 (106) Pulse Ox 96 97 95 O2 Delivery Nasal Cannula Room Air O2 Flow Rate 1.00 1.00 Capillary Refill : Temperature (Fahrenheit): 98.3 General Appearance: no apparent distress Respiratory: accessory muscle use, wheezing (bilaterally) Cardiovascular: regular rate, rhythm, no edema, no gallop, no murmur Gastrointestinal: normal bowel sounds, non tender Neurologic/Psychiatric: alert, oriented x 3 Skin: normal color Assessment/Plan Assessment/Plan Admission Dx Hypoxia Admission Status: Inpatient Order (span 2 midnights) Reason for Inpatient Admission: Hypoxia Assessment & Plan 1. Acute COPD Exacerbation Continue prednisone and albuterol. No need for antibiotics. Refill inhalers. Will prescribe for home oxygen. Pt agreed that she should stay one more day since she is still wheezing quite a bit. Clinical Quality Measures DVT/VTE Risk/Contraindication: Risk Factor Score Per Nursin RFS Level Per Nursing on Admit: 4+=Very High KATHIA ELLIS MD 07/06/18 5557: Home Medications Allergies Coded Allergies: Penicillins (Unverified Allergy, Mild, PT DOES NOT REMEMBER RXN > 30 YRS, 04/21/18) Pt has received Cefepime & Ceftriaxone w/o issue nalbuphine (Unverified Allergy, Mild, 04/23/09) VOO-Oshabk-Tjhwgd Hx Family Medical History Family History: Alzheimer's disease (MOTHER) Cancer (FATHER LIVER CA SISTER CA) Cardiovascular disease G8 SISTER Dementia FH: lupus (SISTER) Family history: Cardiovascular disease Family history: Diabetes mellitus Family history: Hypertension Heart disease Supervisory-Addendum Brief Supervisory Addendum Patient seen and examined by me along with MSAlejandro Holley, agree with documentation unless otherwise noted. Will have home O2 study done today in anticipate of likely d/c tomorrow. LOYD HOLLEY MEDICAL STUDENT Jul 06, 2018 16:09 KATHIA ELLIS MD Jul 06, 2018 17:07
[2018-07-06 16:10] VITALS: BP 116/64
[2018-07-06] MEDS: ENOXAPARIN 40 MG/0.4 ML (LOVENOX) SYR SC SCH (17:47)
[2018-07-06] MEDS ORDERED: ESCITALOPRAM 20 MG (LEXAPRO) TABLET PO SCH (18:00)
[2018-07-06] MEDS ORDERED: NON-FORMULARY MEDICATION 1 EA EA (Escitalopram Oxalate (Lexapro) 20 MG) PO SCH (18:00)
[2018-07-06 20:00] VITALS: BP 154/87
[2018-07-06] MEDS: ROSUVASTATIN 10 MG (CRESTOR) TABLET PO SCH (20:00)
[2018-07-06] MEDS ORDERED: MIRTAZAPINE 15 MG (REMERON) TAB ONE (20:01)
[2018-07-06] MEDS: MIRTAZAPINE 45 MG TABLET PO SCH (20:04)
[2018-07-06] MEDS ORDERED: eZETimibe 10 MG (ZETIA) TABLET PO SCH (21:00)
[2018-07-07 00:15] VITALS: BP 118/71
[2018-07-07 03:24] VITALS: BP 114/65
[2018-07-07] MEDS: morphine ER 30 MG (MS CONTIN) TAB PO SCH (06:36)
[2018-07-07] MEDS: PANTOPRAZOLE 40 MG (PROTONIX) TAB PO SCH (06:36)
[2018-07-07] MEDS: RT-ALBUTEROL SULF 2.5 MG/3 ML PRE-MIX VIAL INH SCH (07:29)
[2018-07-07 08:00] VITALS: BP 129/78
[2018-07-07] MEDS: predniSONE 20 MG TAB PO SCH (08:55)
[2018-07-07] MEDS: ASPIRIN E.C. 81 MG (ECOTRIN) TAB PO SCH (08:56)
[2018-07-07] MEDS: DOCUSATE SODIUM 100 MG (COLACE) CAP PO SCH (08:56)
[2018-07-07] MEDS: FUROSEMIDE 40 MG (LASIX) TAB PO SCH (08:57)
[2018-07-07] MEDS: GABAPENTIN 600 MG (NEURONTIN) TAB PO SCH (08:58)
[2018-07-07] MEDS: DULOXETINE 60 MG PO SCH (08:59)
[2018-07-07] MEDS: oxyCODONE/APAP 10/325MG (PERCOCET 10) TABLET PO PRN ×2 (09:10→14:00)
[2018-07-07] MEDS ORDERED: ENOXAPARIN 40 MG/0.4 ML (LOVENOX) SYR SC SCH (09:19)
[2018-07-07] MEDS ORDERED: FLUT1DIS26 IH (12:59)
[2018-07-07] MEDS ORDERED: TIOT18CA2 IH (12:59)
--- NOTE | 2018-07-07 13:18 | Discharge Instructions ---
Discharge [facility] Discharge Medications New, Converted or Re-Newed RX: [facility] New Medications: Fluticasone/Salmeterol (Advair 250-50 Diskus) 1 Each Blst.w.dev 1 EACH IH BID, #1 INHALER 0 Refills Tiotropium Moran (Spiriva) 1 Inh Aerp 1 INH IH DAILY, #1 INHALER 0 Refills Continued Medications: Aspirin (Aspir-Low) 81 Mg Tablet.dr 81 MG PO DAILY for 30 Days, #30 TAB CHEWABLE Buspirone HCl (Buspirone HCl) 5 Mg Tablet 5 MG PO BID WITH MEALS PRN for ANXIETY for 30 Days, #60 TAB PRN PANIC FEELING Cetirizine HCl (Zyrtec) 10 Mg Tablet 10 MG PO DAILY PRN for DRAINAGE, TAB Cyclobenzaprine HCl (Cyclobenzaprine HCl) 5 Mg Tablet 5 MG PO BID for Muscle Spasms for 30 Days, TAB Docusate Sodium (Colace) 100 Mg Capsule 100 MG PO DAILY, CAP Duloxetine HCl (Duloxetine HCl) 60 Mg Capsule.dr 120 MG PO DAILY, CAP Ergocalciferol (Vitamin D2) (Vitamin D2) 50,000 Unit Capsule 21462 UNIT PO WEEK, CAP Escitalopram Oxalate (Lexapro) 20 Mg Tablet 20 MG PO 1800, TAB Ezetimibe (Zetia) 10 Mg Tablet 10 MG PO DAILY, TAB Ferrous Sulfate (Ferosul) 325 Mg Tablet 325 MG PO TIDWM, TAB Furosemide (Furosemide) 40 Mg Tablet 40 MG PO DAILY, TAB Gabapentin (Gabapentin) 600 Mg Tablet 600 MG PO TID, TAB Mirtazapine (Mirtazapine) 45 Mg Tablet 45 MG PO HS, TAB Morphine Sulfate (Morphine Sulfate ER) 30 Mg Tablet.er 30 MG PO BID WITH MEALS for 30 Days, #60 TAB Oxycodone HCl/Acetaminophen (Oxycodone-Acetaminophen 10-325) 1 Each Tablet 1 TAB PO TID PRN for PAIN-BREAKTHROUGH, TAB Pantoprazole Sodium (Pantoprazole Sodium) 40 Mg Tablet.dr 40 MG PO DAILY, TAB Potassium Chloride (Potassium Chloride) 20 Meq Tablet.er 20 MEQ PO 5 DAYS A WEEK, TAB STOP DATE IS : 12/23/2018 Quetiapine Fumarate (Quetiapine Fumarate) 50 Mg Tablet 50 MG PO HS, TAB Rosuvastatin Calcium (Rosuvastatin Calcium) 10 Mg Tablet 10 MG PO DAILY, TAB Sodium Chloride/Aloe Vera ([place] Saline Nasal Gel) 14.1 Gm Gel..gram. NS DAILY PRN for DRY NOSE Vitamin B Complex & Vit C No.4 (Super B Complex) 150 Mg Tablet 150 MG PO DAILY, TAB Vitamin E Acetate (Vitamin E) 400 Unit Capsule 400 UNIT PO DAILY, CAP Discontinued Medications: Simvastatin (Simvastatin) 20 Mg Tablet 20 MG PO HS for 30 Days, #30 TAB Patient Instructions Goal/Follow Up Appt: Follow-up with Dr. Larios Jul 12, 2018 at 9:40am Activity & Diet Discharge Diet: No Restrictions GABRIELLE PANCHAL DO Jul 07, 2018 13:18
--- NOTE | 2018-07-07 13:27 | Discharge Summary ---
Diagnosis/Chief Complaint Date of Admission Jul 05, 2018 at 16:25 Date of Discharge Jul 07, 2018 Admission Diagnosis Admission Diagnosis Hypoxia Discharge Diagnosis 1. Acute COPD Exacerbation -Continue prednisone and albuterol. No need for antibiotics. Refill inhalers. Will prescribe for home oxygen. Pt agreed that she should stay one more day since she is still wheezing quite a bit. 07/07 - did not qualify for home O2 based on ambulatory O2 sat; currently on FA - Rx for Spiriva and Advair - recommend OP PFT for f/u - DC home; f/u with Dr. Cano next week Chief Complaint/HPI Chief Complaint/HPI 72 yo white woman presents today after direct admit from [facility] yesterday. She reports that she has been wheezing and having an unproductive cough for the last three weeks. Pt notes she ran out of her Advair inhaler a month ago and has not gotten a new script. She notes that she was diagnosed with COPD four years ago and prescribed home oxygen. She then moved to [place] and lost all coordination of care. She has not had home oxygen for a year now. Pt sees Dr. Cano at [facility]. Pt also has chronic pain, which she rates as a 7 out 10 today , due to a fall from a third story window in 1967. Discharge Summary-Simple/Stand Consultations Discharge Physical Examination Allergies: Coded Allergies: Penicillins (Unverified Allergy, Mild, PT DOES NOT REMEMBER RXN > 30 YRS, 04/21/18) Pt has received Cefepime & Ceftriaxone w/o issue nalbuphine (Unverified Allergy, Mild, 04/23/09) Vitals & I&Os Vital Sign - Last 12Hours Date Time Temp Pulse Resp B/P (MAP) Pulse Ox O2 Delivery O2 Flow Rate FiO2 07/07/18 08:00 92 Room Air 07/07/18 08:00 99.1 81 22 129/78 (95) 07/06/18 14:15 1.00 Intake and Output 07/07/18 00:00 Intake Total 2010 ml Output Total 2350 ml Balance -340 ml General Appearance: Alert, Oriented X3, Cooperative Respiratory: Normal Air Movement, Other (minimal expiratory wheezes) Cardiovascular: Regular Rate Hospital Course See final discharge diagnosis. Radiology Reviewed CXR showed granuloma in right lung and interstitial changes due to COPD Discharge Instructions to patient/family Please see electronic discharge instructions given to patient. Patient Instructions Goal/Follow Up Appt: Follow-up with Dr. Cano Jul 12, 2018 at 9:40am Discharge Medications Reviewed and agree with Discharge Medication list on patient's Discharge Instruction sheet Discharge Medications New, Converted or Re-Newed RX: [facility]) New Medications: Fluticasone/Salmeterol (Advair 250-50 Diskus) 1 Each Blst.w.dev 1 EACH IH BID, #1 INHALER 0 Refills Tiotropium [place] (Spiriva) 1 Inh Aerp 1 INH IH DAILY, #1 INHALER 0 Refills Continued Medications: Aspirin (Aspir-Low) 81 Mg Tablet.dr 81 MG PO DAILY for 30 Days, #30 TAB CHEWABLE Buspirone HCl (Buspirone HCl) 5 Mg Tablet 5 MG PO BID WITH MEALS PRN for ANXIETY for 30 Days, #60 TAB PRN PANIC FEELING Cetirizine HCl (Zyrtec) 10 Mg Tablet 10 MG PO DAILY PRN for DRAINAGE, TAB Cyclobenzaprine HCl (Cyclobenzaprine HCl) 5 Mg Tablet 5 MG PO BID for Muscle Spasms for 30 Days, TAB Docusate Sodium (Colace) 100 Mg Capsule 100 MG PO DAILY, CAP Duloxetine HCl (Duloxetine HCl) 60 Mg Capsule.dr 120 MG PO DAILY, CAP Ergocalciferol (Vitamin D2) (Vitamin D2) 50,000 Unit Capsule 70072 UNIT PO WEEK, CAP Escitalopram Oxalate (Lexapro) 20 Mg Tablet 20 MG PO 1800, TAB Ezetimibe (Zetia) 10 Mg Tablet 10 MG PO DAILY, TAB Ferrous Sulfate (Ferosul) 325 Mg Tablet 325 MG PO TIDWM, TAB Furosemide (Furosemide) 40 Mg Tablet 40 MG PO DAILY, TAB Gabapentin (Gabapentin) 600 Mg Tablet 600 MG PO TID, TAB Mirtazapine (Mirtazapine) 45 Mg Tablet 45 MG PO HS, TAB Morphine Sulfate (Morphine Sulfate ER) 30 Mg Tablet.er 30 MG PO BID WITH MEALS for 30 Days, #60 TAB Oxycodone HCl/Acetaminophen (Oxycodone-Acetaminophen 10-325) 1 Each Tablet 1 TAB PO TID PRN for PAIN-BREAKTHROUGH, TAB Pantoprazole Sodium (Pantoprazole Sodium) 40 Mg Tablet.dr 40 MG PO DAILY, TAB Potassium Chloride (Potassium Chloride) 20 Meq Tablet.er 20 MEQ PO 5 DAYS A WEEK, TAB STOP DATE IS : 12/23/2018 Quetiapine Fumarate (Quetiapine Fumarate) 50 Mg Tablet 50 MG PO HS, TAB Rosuvastatin Calcium (Rosuvastatin Calcium) 10 Mg Tablet 10 MG PO DAILY, TAB Sodium Chloride/Aloe Vera (Ola Saline Nasal Gel) 14.1 Gm Gel..gram. NS DAILY PRN for DRY NOSE Vitamin B Complex & Vit C No.4 (Super B Complex) 150 Mg Tablet 150 MG PO DAILY, TAB Vitamin E Acetate (Vitamin E) 400 Unit Capsule 400 UNIT PO DAILY, CAP Discontinued Medications: Simvastatin (Simvastatin) 20 Mg Tablet 20 MG PO HS for 30 Days, #30 TAB Clinical Quality Measures DVT/VTE Risk/Contraindication: Risk Factor Score Per Nursin RFS Level Per Nursing on Admit: 4+=Very High Copy Copies To 1: NEERU CANO MD, LINDA K DO Jul 07, 2018 13:27
[2018-07-07 14:30] VITALS: BP 120/78
[2018-07-09] MEDS ORDERED: VITAMIN D2 50,000 UNITS (1.25 MG) CAP PO SCH (09:00)
== END 2018-07-07 13:04 | disposition home or self-care (01) ==
LOC: EDSTATUS 15:01 → 4TH 16:25 → UNDOADMIN 16:25 → UNDODISIN 07-07 14:30
PROVIDERS: ADMIT Family Medicine; ATTEND Family Medicine
DX: J44.1 Chronic obstructive pulmonary disease with (acute) exacerbation (principal); G89.29 Other chronic pain; Z87.891 Personal history of nicotine dependence; M54.9 Dorsalgia, unspecified; K21.9 Gastro-esophageal reflux disease without esophagitis; E78.5 Hyperlipidemia, unspecified; F41.9 Anxiety disorder, unspecified; F32.9 Major depressive disorder, single episode, unspecified; Z96.611 Presence of right artificial shoulder joint; Z96.612 Presence of left artificial shoulder joint; Z80.8 Family history of malignant neoplasm of other organs or systems
CPT/HCPCS: 36415; 71046; 80053; 83605; 83880; 85025; 87040; 94640; 94760; 94761; 99211; G0378

== ENCOUNTER → 2018-08-07 | Outpatient (CLI) | payer MEDICARE ==
[~2018-08-07] MED LIST changes: +ASPI81TA55 PO; +BUSP5TAB59 PO; +CYCL5TAB PO; +FLUT1DIS26 IH; +TIOT18CA2 IH
--- NOTE | 2018-08-07 13:58 | Diagnostic Imaging Report ---
INDICATION: Routine screening. Comparison is made with prior mammogram from 04/27/2015 and 04/17/2014. 2-D and 3-D bilateral screening mammography was performed with CAD. The current study was also evaluated with a Computer Aided Detection (CAD) system. FINDINGS: Both breasts are heterogeneously dense, limiting the sensitivity of mammography. The parenchymal pattern is stable. No dominant mass or malignant-appearing microcalcifications are seen. There are benign calcifications bilaterally. Nodular densities in both breasts appear stable. The axillae are unremarkable. IMPRESSION: No mammographic features suspicious for malignancy are identified. ACR BI-RADS Category 2: Benign findings. Result letter will be mailed to the patient. Note: At least 10% of breast cancer is not imaged by mammography. Dictated by: Dictated on workstation # [id number]
== END ==
LOC: RAD 08:20
PROVIDERS: ATTEND Internal Medicine
DX: Z12.31 Encounter for screening mammogram for malignant neoplasm of breast (principal)
CPT/HCPCS: 77067

== ENCOUNTER → 2018-10-10 | Outpatient (CLI) | payer MEDICARE ==
[~2018-10-10] MED LIST changes: +RT-ALBUTEROL SULF 2.5 MG/3 ML PRE-MIX VIAL INH ONE; +RT-ALBUTEROL SULF 2.5 MG/3 ML PRE-MIX VIAL ONE
== END ==
LOC: RT 13:16
PROVIDERS: ATTEND Internal Medicine
DX: J44.9 Chronic obstructive pulmonary disease, unspecified (principal)
CPT/HCPCS: 94060; 94726; 94729

== ENCOUNTER 2018-11-19 05:54 | Outpatient (CLI) | payer MEDICARE ==
[~2018-11-19] VITALS: Ht 147.3 cm; Wt 87.1 kg
[~2018-11-19 05:54] MED LIST changes: -RT-ALBUTEROL SULF 2.5 MG/3 ML PRE-MIX VIAL INH ONE; -RT-ALBUTEROL SULF 2.5 MG/3 ML PRE-MIX VIAL ONE
[2018-11-19] MEDS ORDERED: OXYC-465 PO (15:01)
[2018-11-19] MEDS ORDERED: ALBU18HF2 INH (15:01)
[2018-11-19] MEDS ORDERED: CYCL5TAB PO (15:01)
[2018-11-19] MEDS ORDERED: MORP-34 PO (15:01)
== END 2018-11-19 15:05 | disposition home or self-care (01) ==
LOC: PREOP 05:54
PROVIDERS: ATTEND Surgery
DX: Z01.818 Encounter for other preprocedural examination (principal)

== ENCOUNTER 2018-11-21 09:04 | Day surgery (SDC) | payer MEDICARE ==
[~2018-11-21] VITALS: Ht 147.3 cm; Wt 87.1 kg
[~2018-11-21 09:04] MED LIST changes: +ALBU18HF2 INH
[2018-11-21] MEDS ORDERED: NS IV 500 ML 500 ML IV PRN (09:20)
[2018-11-21] MEDS ORDERED: NS IV 500 ML 500 ML ONE (09:21)
--- OUTSIDE RECORDS SUMMARY | 2018-11-21 09:24 | XMS REPORT | Clinical Summary ---
Author Author [facility] Organization [facility] Address Unknown Phone Unavailable Care Team Providers Care Photogeologist Name Role Phone No Pcp, Na PCP Unavailable Agustin Buitrago MD Unavailable Source Comments Some departments are not documenting in the electronic medical record. If you do not see the information that you expected, contact Release of Information in the Health Information Management department at [phone] for further assistance in locating additional records.[facility] Allergies Comments Active Allergy Reactions Severity Noted Date Naproxen UNKNOWN 11/25/2014 Penicillins RASH 11/25/2014 Medications End Date Status Medication Sig Dispensed Refills Start Date Active gabapentin (NEURONTIN) Take 600 mg 0 600 mg tablet by mouth three times daily. Active pantoprazole DR Take 40 mg by 0 (PROTONIX) 40 mg tablet mouth daily. Active morphine SR (MS CONTIN; Take 30 mg by 0 ORAMORPH SR) 30 mg tablet mouth every 12 hours Active ALPRAZolam (XANAX) 0.5 mg Take 0.5 mg 0 tablet by mouth at bedtime as needed. Active HYDROcodone-acetaminophen Take 1 Tab by 0 (+) (VICODIN) 10-325 mg mouth every 6 tablet hours as needed. Active omeprazole DR(+) Take 20 mg by 0 (PRILOSEC) 20 mg capsule mouth daily. Active meloxicam (MOBIC) 7.5 mg Take 15 mg by 0 tablet mouth daily. Active simvastatin (ZOCOR) 20 mg Take 20 mg by 0 tablet mouth at bedtime daily. Active furosemide (LASIX) 20 mg Take 40 mg by 0 tablet mouth daily. Active ezetimibe (ZETIA) 10 mg Take 10 mg by 0 tablet mouth daily. Active ERGOCALCIFEROL (VITAMIN Take by 0 D2) (VITAMIN D2 PO) mouth. Active sertraline (ZOLOFT) 100 Take 100 mg 0 mg tablet by mouth daily. Active sucralfate (CARAFATE) 1 Take 1 g by 0 gram tablet mouth four times daily. Active metroNIDAZOLE (FLAGYL) Take 500 mg 0 500 mg tablet by mouth three times daily. Active DOCOSAHEXANOIC ACID/EPA Take by 0 (FISH OIL PO) mouth. Active FOLIC ACID PO Take by 0 mouth. Active Coenzyme Q10 (CO Q-10) 10 Take by 0 mg cap mouth. Active Problems Problem Noted Date Foot deformity, acquired 11/30/2014 Family History Medical History Relation Name Comments Cancer Paternal Grandmother Cancer Sister Scoliosis Sister Stroke Sister Relation Name Status Comments Paternal Grandmother Sister Social History Date Tobacco Use Types Packs/Day Years Used Former Smoker Cigarettes 0.5 Smokeless Tobacco: Never Used Alcohol Use Drinks/Week oz/Week Comments No Sex Assigned at Date Recorded Not on file Industry Job Start Date Occupation Not on file Not on file Not on file Travel End Travel History Travel Start No recent travel history available. 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 GYNECOLOGIST Body Mass Index 35.85 Plan of Treatment Health Maintenance Due Date Last Done Comments HEPATITIS C SCREENING 1946 PHYSICAL (COMPREHENSIVE) 1953 EXAM DTAP/TDAP VACCINES (1 - 1964 Tdap) BREAST CANCER SCREENING 1986 COLORECTAL CANCER 1996 SCREENING SHINGLES RECOMBINANT 1996 VACCINE (1 of 2) OSTEOPOROSIS 2011 SCREENING/MONITORING PNEUMONIA (PCV13/PPSV23) 2011 VACCINES (1 of 2 - PCV13) INFLUENZA VACCINE 05/23/2018 Results Not on filefrom Last 3 Months Insurance Payer Benefit Subscriber ID Type Phone Address Plan / Group MEDICARE MEDICARE xxxxxxxxxx Medicare PART A AND B [facility] AARP xxxxxxxxxxx PPO Advance Directives Patient has advance care planning documents on file. For more information, please contact: [facility] [address] [place] [address]
--- OUTSIDE RECORDS SUMMARY | 2018-11-21 09:25 | XMS REPORT ---
Author Author BAILEE GONZALEZ Organization [facility] Address [address] [place] [address] Care Team Providers Care Fall Internship Name Role Phone GONZALEZBAILEE Unavailable PROBLEMS Type Condition ICD9-CM Code [id number] Code Onset Dates Condition Status SNOMED Code Problem Other chronic pain G89.29 Active 14956314 Problem Hammer toe of right foot M20.41 Active 848146448 Problem Moderate episode of recurrent major depressive disorder F33.1 Active 445685819 Problem Primary osteoarthritis, right hand M19.041 Active [id number] Problem Primary osteoarthritis of left hand M19.042 Active 08773410 Problem Anxiety F41.9 Active 24693647 Problem Major depressive disorder, recurrent, in full remission F33.42 Active 91520039 Problem Stuttering F80.81 Active 42046123 Problem Severe episode of recurrent major depressive disorder, without psychotic features F33.2 Active 30674895 Problem Esophageal dysphagia R13.10 Active 52445698 Problem Lumbar radiculopathy M54.16 Active 189146830 Problem History of anemia Z86.2 Active 763159856 Problem Acute allergic rhinitis, unspecified seasonality, unspecified trigger J30.9 Active 72458870 Problem Chronic pain due to trauma G89.21 Active 684214558 Problem Atrophic gastritis without hemorrhage K29.40 Active 79608491 Problem Gastroesophageal reflux disease, esophagitis presence not specified K21.9 Active 584233707 Problem Chronic obstructive pulmonary disease, unspecified COPD type J44.9 Active 43333090 ALLERGIES Substance Reaction Event Type Date Status Penicillin G Sodium headache Drug Allergy Aug, Active Nalbuphine HCl headache Drug Allergy Aug, Active ENCOUNTERS Encounter Location Date Diagnosis [facility] [address] [id number] [address] Oct, [facility] [address] [id number] [address] Sep, [place] [id number] [place] [address]459- 0840 Aug, [place] [address] [address]- [address] Aug, Atrophic gastritis without hemorrhage K29.40 and Chronic pain due to trauma G89.21 [place] [address] [address]- [address] Aug, Primary osteoarthritis of left hand M19.042 and Primary osteoarthritis, right hand M19.041 [place] [address] [address]- 3984 Aug, Anxiety F41.9 ; Severe episode of recurrent major depressive disorder, without psychotic features F33.2 and Gastroesophageal reflux disease, esophagitis presence not specified K21.9 [place] [address] [address]337- 9778 Aug, [place] [address] 6[address]43- 5083 Aug, Severe episode of recurrent major depressive disorder, without psychotic features F33.2 and Anxiety F41.9 [place] [address] [address]687- [address] Aug, Chronic obstructive pulmonary disease, unspecified COPD type J44.9 ; Lumbar radiculopathy M54.16 and Stuttering F80.81 [place] [address] [address]- [address]576 Jul, Chronic pain due to trauma G89.21 and Atrophic gastritis without hemorrhage K29.40 [facility] [address] [address] Jul, Right hip pain M25.551 ; Urinary tract infection without hematuria, site unspecified N39.0 and Right sided abdominal pain R10.9 [place] [address] 75396- 2839 Jul, [place] [address] [address] Jul, [place] [id number] [place] [address] 61151- 8312 Jul, [facility] [id number] [place] [address] 58757- 7696 Jul, Gastroesophageal reflux disease, esophagitis presence not specified K21.9 [place] [id number] [place] [address] 45596- 1054 Jul, [place] [id number] [place] [address] 59912- 1193 Jul, Severe episode of recurrent major depressive disorder, without psychotic features F33.2 and Anxiety F41.9 [place] [id number] [place] [address] 84783- 7953 Jul, Lumbar radiculopathy M54.16 [place] [id number] [place] [address] 24089- 0180 Jul, [place] [id number] [place] [address] 74492- 4106 04 Jul, 2018 Chronic pain due to trauma G89.21 and Atrophic gastritis without hemorrhage K29.40 [place] [id number] [place] [address] 25354- 7271 04 Jul, 2018 Medicare annual wellness visit, initial Z00.00 ; Chronic obstructive pulmonary disease, unspecified COPD type J44.9 ; Encounter for immunization Z23 ; Other chronic pain G89.29 ; Lumbar radiculopathy M54.16 ; Gastroesophageal reflux disease, esophagitis presence not specified K21.9 ; Routine adult health maintenance Z00.00 ; Major depressive disorder, recurrent, in full remission F33.42 and Breast cancer screening Z12.31 [place] [address] [address] 9110 Jul, [place] [id number] [place] [address] 67851- 0221 Jun, Chronic obstructive pulmonary disease, unspecified COPD type J44.9 ; Lumbar radiculopathy M54.16 ; Moderate episode of recurrent major depressive disorder F33.1 and Hammer toe of right foot M20.41 [place] [id number] [place] [address] 78038- 9657 20 Jun, 2018 [place] [address] 55018- 4630 17 Jun, 2018 [facility] [address] 83248 -1017 13 Jun, 2018 Acute respiratory distress R06.03 [place] [address] 33106- 6275 05 Jun, 2018 Chronic pain due to trauma G89.21 and Atrophic gastritis without hemorrhage K29.40 [place] [address] 85447- 1161 May, Atrophic gastritis without hemorrhage K29.40 and Chronic pain due to trauma G89.21 [place] [address] 60636- 4265 Apr, Strain of neck muscle, subsequent encounter S16.1XXD and Lumbar radiculopathy M54.16 [place] [id number] [place] [address] 26807- 2932 11 Apr, 2018 Atrophic gastritis without hemorrhage K29.40 and Chronic pain due to trauma G89.21 [place] [address] 75406- 7300 14 Mar, 2018 Chronic pain due to trauma G89.21 ; Lumbar radiculopathy M54.16 ; Dysthymia F34.1 ; Pain in right shoulder M25.511 ; Pain in left shoulder M25.512 ; Other chronic pain G89.29 and Chronic obstructive pulmonary disease, unspecified COPD type J44.9 [place] [address] 72783- 0943 14 Mar, 2018 Chronic pain due to trauma G89.21 and Atrophic gastritis without hemorrhage K29.40 [facility] [id number] [place] [address] 63285- 7126 February, Chronic pain due to trauma G89.21 and Atrophic gastritis without hemorrhage K29.40 [facility] [id number] [place] [address] 36790- 0933 Jan, Chronic pain due to trauma G89.21 and Atrophic gastritis without hemorrhage K29.40 [place] [address] 34392- 4284 Jan, Atrophic gastritis without hemorrhage K29.40 [place] [address] 42987- 9868 Dec, Atrophic gastritis without hemorrhage K29.40 and Chronic pain due to trauma G89.21 [place] [address] 55518- 3800 Dec, Chronic pain due to trauma G89.21 and Lumbar radiculopathy M54.16 [place] [address] 52434- 4134 Dec, Lumbar radiculopathy M54.16 [place] [address] 77688- 4122 Dec, [place] [address] 17178- 5362 Nov, Chronic pain due to trauma G89.21 [place] [address] 00632- 3591 Nov, BMI 40.0-44.9, adult Z68.41 ; Lumbar radiculopathy M54.16 and Dysthymia F34.1 [facility] [id number] [place] [address] 89974- 3793 13 Nov, 2017 [place] [address] 03278- 7769 Nov, [facility] [address] [address] 4360 Oct, [facility] [id number] [place] [address] 15504- 9137 Oct, Chronic pain due to trauma G89.21 ; Gastroesophageal reflux disease, esophagitis presence not specified K21.9 ; Dysthymia F34.1 ; Lumbar radiculopathy M54.16 ; Esophageal dysphagia R13.10 and BMI 40.0-44.9, adult Z68.41 [facility] IN [facility] [id number] [place] [address] 56652 -3727 Sep, History of anemia Z86.2 and Acute allergic rhinitis, unspecified seasonality, unspecified trigger J30.9 [facility] [id number] [place] [address] 68277- 8591 Sep, [facility] [id number] [place] [address] 38690- 1416 14 Jul, 2016 [facility] [id number] [place] [address] 36526- 3217 14 Jan, 2015 [facility] [id number] [place] [address] 76289- 8547 13 Jan, 2015 [facility] [id number] [place] [address] 89572- 0317 Nov, [facility] [id number] [place] [address] 59280- 5839 Nov, [facility] [id number] [place] [address] 963171- 0023 Oct, [facility] [id number] [place] [address] [id number]- 0983 Aug, [facility] [id number] [place] [address] 507688- 8094 Aug, [facility] [address] 88298- 0571 Jul, [facility] [place] [facility] [address] [id number] [place] [address]- 5814 Jul, [facility] [place] [facility] [address] [id number] [place] [address]- 1211 Jul, [facility] [place] [facility] [address] [id number] [place] [address]- 1452 Jul, [facility] [place] [facility] [address] [id number] [place] [address]- 7560 Jul, [facility] [place] [facility] [address] [id number] [place] [address]- 6536 Jun, [facility] [place] [facility] [address] [id number] [place] [address]- 0025 Jun, [facility] [place] [facility] [address] [id number] [place] [address]- 4013 Jun, [facility] [place] [facility] [address] [id number] [place] [address]- 8871 May, [facility] [place] [facility] [address] [id number] [place] [address]- 2279 May, [facility] [place] [facility] [address] [id number] [place] [address]- 4397 May, [facility] [place] [facility] [address] [id number] [place] [address]- 9524 May, [facility] [place] [facility] [address] [id number] [address]- 3494 Apr, [facility] [place] [facility] [address] [id number] [place] [address]- 2534 Apr, [facility] [place] [facility] [address] [id number] [place] [address]- 0932 Apr, [facility] [place] [facility] [address] [id number] [place] [address]- 2540 Apr, [facility] [place] [facility] [address] [id number] [place] [address]- 7573 Mar, [facility] [address] [id number] [place] [address]- 8940 Mar, [facility] [address] [id number] [place] [address]- 6305 Mar, [facility] [address] [id number] [place] [address]- 7232 February, [facility] [address] [id number] [place] [address]- 1957 February, [facility] [address] [id number] [place] [address]- 9397 February, [facility] [address] [id number] [place] [address]- 9554 February, [facility] [address] [id number] [place] [address]- 3001 February, [facility] [address] [id number] [place] [address]- 5166 February, [facility] [address] [id number] [place] [address]- 2640 Jan, [facility] [place] [address] [id number] [place] [address]- 3403 Jan, [facility] [address] [id number] [place] [address]- 9545 Dec, [facility] [address] [id number] [place] [address]- 4743 Dec, [facility] [address] [id number] [place] [address]- 7422 Dec, [facility] [address] [id number] [place] [address]- 2546 05 Dec, 2012 [facility] [address] [id number] [place] [address]- 0785 Dec, [facility] [address] [id number] [place] [address]- 9364 Nov, [facility] [place] [facility] [address] [id number] [place] [address]- 4276 Nov, [facility] [address] [id number] [place] [address]- 9850 Nov, [facility] [place] [facility] [address] [id number] [place] [address]- 6779 Nov, [facility] [address] [id number] [place] [address]- 8410 Nov, [facility] [address] [id number] [place] [address]- 2449 Oct, [facility] [address] [id number] [place] [address]- 2684 Oct, [facility] [address] [id number] [place] [address]- 3203 Sep, [facility] [address] [id number] [place] [address]- 7394 Sep, [facility] [address] [id number] [place] [address]- 1628 Sep, [facility] [place] [facility] [address] [id number] [address]- 6768 Sep, [facility] [place] [facility] [address] [id number] [place] [address]- 8499 Sep, [facility] [place] [facility] [address] [id number] [place] [address]- 8110 Sep, [facility] [place] [facility] [address] [id number] [place] [address]- 5919 Sep, [facility] [place] [facility] [address] [id number] [place] [address]- 6827 Sep, [facility] [place] [facility] [address] [id number] [place] [address]- 7370 Aug, [facility] [place] [facility] [address] [id number] [place] [address]- 7604 Aug, [facility] [place] [facility] [address] [id number] [place] [address]- 4546 Aug, [facility] [place] [facility] [address] [id number] [place] [address]- 7622 Aug, [facility] [place] [facility] [address] [id number] [place] [address]- 5545 Aug, [facility] [place] [facility] [address] [id number] [place] [address]- 1266 Aug, [facility] [place] [facility] [address] [id number] [place] [address]- 8462 Aug, [facility] [place] [facility] [address] [id number] [place] [address]- 9751 Jul, [facility] [place] [facility] [address] [id number] [place] [address]- 7149 Jul, [facility] [place] [facility] [address] [id number] [place] [address]- 9112 Jul, [facility] [place] [facility] [address] [id number] [place] [address]- 7283 Jul, [facility] [place] [facility] [address] [id number] [place] [address]- 6248 Jul, [facility] [place] [facility] [address] [id number] [place] [address]- 9470 Jul, [facility] [place] [facility] [address] [id number] [place] [address]- 9835 Jul, [facility] [place] [facility] [address] [id number] [place] 2406 18 Jun, 2012 [facility] [place] [facility] [address] [id number] [place] 2407 06 Jun, 2012 [facility] [place] [facility] [address] [id number] [place] [address]- 2546 Jun, [facility] [place] [facility] [address] [id number] [place] [address]- 2546 May, [facility] [place] [facility] [address] [id number] [place] [address]- 2546 May, [facility] [place] [facility] [address] [id number] [place] [address]- 2546 Apr, [facility] [place] [facility] [address] [id number] [place] [address]- 2546 Apr, [facility] [place] [facility] [address] [id number] [place] [address]- 2556 Mar, [facility] [address] [id number] [place] [address]- 4696 February, [facility] [address] [id number] [place] [address]- 1546 February, [facility] [place] [facility] [address] [id number] [place] [address]- 6201 February, [facility] [place] [facility] [address] [id number] [place] [address]- 6306 February, [facility] [place] [facility] [address] [id number] [place] [address]- 0776 February, [facility] [place] [facility] [address] [id number] [place] [address]- 1576 February, [facility] [place] [facility] [address] [id number] [place] [address]- 0216 February, [facility] [place] [facility] [address] [id number] [place] [address]- 5106 Jan, [facility] [place] [facility] [address] [id number] [place] [address]- 2546 Dec, [facility] [place] [facility] [address] [id number] [place] [address]- 6159 Dec, [facility] [address] [id number] [place] [address]- 2756 Oct, [facility] [address] [id number] [place] [address]- 8453 Oct, [facility] [address] [id number] [place] [address]- 3854 Oct, [facility] [place] [facility] [address] [id number] [place] [address]- 1623 Oct, [facility] [address] [id number] [place] [address]- 3530 Oct, [facility] [address] [id number] [place] [address]- 6441 Oct, [facility] [address] [id number] [place] [address]- 5252 Oct, [facility] [address] [id number] [place] [address]- 4650 Oct, [facility] [address] [id number] [place] [address]- 4177 Oct, [facility] [address] [id number] [place] [address]- 2728 Sep, [facility] [address] [id number] [place] [address]- 9472 Sep, [facility] [place] [facility] [address] [id number] [place] [address]- 3511 Sep, [facility] [place] [facility] [address] [id number] [place] [address]- 7243 Sep, [facility] [place] [facility] [address] [id number] [place] [address]- 0228 Sep, [facility] [place] [facility] [address] [id number] [place] [address]- 8138 Sep, [facility] [place] [facility] [address] [address]- 8039 19 Sep, 2011 [facility] [address] [address]- 9584 19 Sep, 2011 [facility] [address] [address] 2546 13 Sep, 2011 [facility] [address] [address]- 9266 05 Sep, 2011 [facility] [address] [address]206 15 Aug, 2011 [facility] [id number] [place] [address] 201859- 2641 18 Jul, 2011 [facility] [address] [address]64 Sep, [facility] [id number] [place] [address] 946939- 7404 15 Aug, 2010 [facility] [address] 7163 Aug, [facility] [address] [address]- 3357 Aug, [facility] [address] 0197 Aug, [facility] [address] [address] 3804 Jul, [facility] [id number] 8915 Jul, [facility] [address] 1430 Jul, IMMUNIZATIONS Vaccine Route Administration Date Status DEXAMETHASONE 4MG/ML (PER 1 MG) IM Intramuscular Sep 19, 2018 Administered DEPO MEDROL 40 MG/ML IM Intramuscular Sep 19, 2018 Administered SOCIAL HISTORY Never Assessed REASON FOR VISIT hand pain-PATTI mata, pt is complaining of both of her hands are hurting and back is hurting as well she getting a poping feeling in her back when she moves. started about a month ago PLAN OF CARE Activity Details Follow Up prn Reason: VITAL SIGNS Height 58.5 in 2018-09-19 Weight 185.3 lbs 2018-09-19 Temperature 98.2 degrees Fahrenheit 2018-09-19 Heart Rate 94 bpm 2018-09-19 Respiratory Rate 20 2018-09-19 Oximetry on room air:98 % 2018-09-19 BMI 38.06 kg/m2 2018-09-19 Blood pressure systolic 104 mmHg 2018-09-19 Blood pressure diastolic 60 mmHg 2018-09-19 MEDICATIONS Medication Instructions Dosage Frequency Start Date End Date Duration Status Potassium Chloride ER 20 meq Orally Once a day 1 tablet with food 24h 90 days Active Colace 100 mg Orally Once a day 2 capsule as needed 24h Active MS Contin 30 MG Orally every 12 hrs 1 tablet 12h Aug, 28 days Active Quetiapine Fumarate 50 mg Orally at bedtime 1 tablet Active MiraLax - Orally Once a day one capful 24h Jul, 30 days Active Zetia 10 mg Orally Once a day 1 tablet 24h 90 days Active Duloxetine HCl 60 mg Orally Twice a day 1 capsule 12h 30 days Active Vitamin B Complex-C - Orally daily 150 mg 24h Active Diclofenac Sodium 75 MG Orally Twice a day 1 tablet with food or milk 12h Jul, 30 day(s) Active Cyclobenzaprine HCl 5 mg Orally 2 times a day 1 tablet as needed 12h Apr 30 days Active Trintellix 20 MG Orally Once a day 1 tablet 24h 30 day(s) Active Oxycodone-Acetaminophen 10-325 MG Orally 3 times a day 1 tablet as needed 8h Aug, 28 days Active BusPIRone HCl 10 mg Orally Twice a day 1 tablet 12h Aug, 30 days Active Furosemide 40 mg Orally Once a day 1 tablet 24h 90 days Active Breo Ellipta 200-25 MCG/INH Inhalation Once a day 1 puff 24h 30 days Active Multi For Her 50+ - Orally Once a day 1 tablet 24h Active Gabapentin 600 MG Orally 3 times a day 1 tablet 8h Jun, 90 days Active Spiriva HandiHaler 18 MCG Inhalation Once a day 1 capsule 24h 18 Jul, 2018 30 days Active Rosuvastatin Calcium 10 mg Orally Once a day 1 tablet 24h 90 days Active Aspirin 81 81 MG Orally 1 and 3 1 tablet Active Pantoprazole Sodium 40 mg Orally Once a day 1 tablet 24h 30 days Active RESULTS No Results PROCEDURES Procedure Date Ordered Result Body Site [facility] VISIT ESTABLISHED PATIENT Sep 19, 2018 THER/PROPH/DIAG INJ, SC/IM Sep 19, 2018 DEPO MEDROL 40 MG/ML Sep 19, 2018 DEXAMETHASONE 4MG/ML (PER 1 MG) Sep 19, 2018 INSTRUCTIONS MEDICATIONS ADMINISTERED No Known Medications MEDICAL (GENERAL) HISTORY Type Description Date Medical History chronic pain, back Medical History Arthritis Medical History chronic obstructive pulmonary disease (COPD) Medical History anxiety Medical History depression Medical History memory loss Medical History hypoxia Surgical History left knee replacement 2004 Surgical History right knee replacement x3 jul 2017 Surgical History shoulder replacement--Bilateral 2016 Surgical History hysterectomy, total with bilateral salpingo-oophorectomy (BSO ) 1985 Surgical History cholecystectomy 2004 Surgical History gastric bypass 2003 Surgical History rods in the back 2000 Surgical History rods removed 2004 Surgical History right ankle repair and hardware removed 2013 Hospitalization History Surgeries only Hospitalization History hypoxia 07/05-07/07/18
--- OUTSIDE RECORDS SUMMARY | 2018-11-21 09:26 | XMS REPORT ---
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 Role Phone NEERU CANO Unavailable PROBLEMS Type Condition ICD9-CM Code XBA19-JB Code Onset Dates Condition Status SNOMED Code Problem Atrophic gastritis without hemorrhage K29.40 Active 36779372 Problem Other chronic pain G89.29 Active 45614138 Problem Chronic obstructive pulmonary disease, unspecified COPD type J44.9 Active 33545541 Problem Stuttering F80.81 Active 41125411 Problem Severe episode of recurrent major depressive disorder, without psychotic features F33.2 Active 94311621 Problem Hammer toe of right foot M20.41 Active 688058605 Problem Moderate episode of recurrent major depressive disorder F33.1 Active 952818288 Problem Anxiety F41.9 Active 32897704 Problem Major depressive disorder, recurrent, in full remission F33.42 Active 82644617 Problem Chronic pain due to trauma G89.21 Active 238679597 Problem Gastroesophageal reflux disease, esophagitis presence not specified K21.9 Active 088630001 Problem Esophageal dysphagia R13.10 Active 81980111 Problem History of anemia Z86.2 Active 216454270 Problem Lumbar radiculopathy M54.16 Active 799764895 Problem Acute allergic rhinitis, unspecified seasonality, unspecified trigger J30.9 Active 60220275 ALLERGIES Substance Reaction Event Type Date Status Penicillin G Sodium headache Drug Allergy Aug, Active Nalbuphine HCl headache Drug Allergy Aug, Active ENCOUNTERS Encounter Location Date Diagnosis [facility] [address] [facility] [id number], [place] [address] Oct, [facility] [address] [id number] [address] Sep, [facility] [address] [id number], [place] [address] Aug, Anxiety F41.9 ; Severe episode of recurrent major depressive disorder, without psychotic features F33.2 and Gastroesophageal reflux disease, esophagitis presence not specified K21.9 [facility] [id number] [place] [address]- [address] Aug, [facility] [address] [address] Aug, Severe episode of recurrent major depressive disorder, without psychotic features F33.2 and Anxiety F41.9 [place] [address] [address] Aug, Chronic obstructive pulmonary disease, unspecified COPD type J44.9 ; Lumbar radiculopathy M54.16 and Stuttering F80.81 [facility] [address] [address] Jul, Chronic pain due to trauma G89.21 and Atrophic gastritis without hemorrhage K29.40 [facility] WALK IN [facility] [id number] [place] [address]1 Jul, Right hip pain M25.551 ; Urinary tract infection without hematuria, site unspecified N39.0 and Right sided abdominal pain R10.9 [facility] [id number] [place] [address] 26695- 4966 Jul, [facility] [address] [address]- [address] Jul, [facility] [id number] [place] [address]73- 6169 Jul, [facility] [address] [address]- [address]689 Jul, Gastroesophageal reflux disease, esophagitis presence not specified K21.9 [facility] [id number] [place] [address] 86374- 5072 Jul, [facility] [address] [address]- [address] Jul, Severe episode of recurrent major depressive disorder, without psychotic features F33.2 and Anxiety F41.9 [place] [id number] [place] [address] 50958- 6548 Jul, Lumbar radiculopathy M54.16 [place] [address] [address]- 6[address] Jul, [place] [address] [address]- 3103 Jul, Chronic pain due to trauma G89.21 and Atrophic gastritis without hemorrhage K29.40 [place] [address] [address]- [address] Jul, Medicare annual wellness visit, initial Z00.00 ; Chronic obstructive pulmonary disease, unspecified COPD type J44.9 ; Encounter for immunization Z23 ; Other chronic pain G89.29 ; Lumbar radiculopathy M54.16 ; Gastroesophageal reflux disease, esophagitis presence not specified K21.9 ; Routine adult health maintenance Z00.00 ; Major depressive disorder, recurrent, in full remission F33.42 and Breast cancer screening Z12.31 [place] [address] [address]- 1354 Jul, [place] [id number] [place] [address]99- 1906 Jun, Chronic obstructive pulmonary disease, unspecified COPD type J44.9 ; Lumbar radiculopathy M54.16 ; Moderate episode of recurrent major depressive disorder F33.1 and Hammer toe of right foot M20.41 [place] [id number] [place] [address] 44410- 2808 Jun, [place] [address] [address]- 2397 17 Jun, 2018 [facility] [id number] [place] [address]48 -4058 13 Jun, 2018 Acute respiratory distress R06.03 [facility] [id number] [place] [address] 58241- 5656 Jun, Chronic pain due to trauma G89.21 and Atrophic gastritis without hemorrhage K29.40 [place] [id number] [place] [address] May, Atrophic gastritis without hemorrhage K29.40 and Chronic pain due to trauma G89.21 [place] [address] [address]- [address]42 13 Apr, 2018 Strain of neck muscle, subsequent encounter S16.1XXD and Lumbar radiculopathy M54.16 [place] [address] [address]40- 9552 Apr, Atrophic gastritis without hemorrhage K29.40 and Chronic pain due to trauma G89.21 [place] [id number] [place] [address] 52343- 2470 Mar, Chronic pain due to trauma G89.21 ; Lumbar radiculopathy M54.16 ; Dysthymia F34.1 ; Pain in right shoulder M25.511 ; Pain in left shoulder M25.512 ; Other chronic pain G89.29 and Chronic obstructive pulmonary disease, unspecified COPD type J44.9 [place] [id number] [place] [address] 75568- 2757 Mar, Chronic pain due to trauma G89.21 and Atrophic gastritis without hemorrhage K29.40 [place] [id number] [place] [address] 16006- 9575 February, Chronic pain due to trauma G89.21 and Atrophic gastritis without hemorrhage K29.40 [place] [id number] [place] [address] 34981- 3478 Jan, Chronic pain due to trauma G89.21 and Atrophic gastritis without hemorrhage K29.40 [place] [address] [place] [address] 90713- 0186 Jan, Atrophic gastritis without hemorrhage K29.40 [place] [address] 46481- 1534 Dec, Atrophic gastritis without hemorrhage K29.40 and Chronic pain due to trauma G89.21 [place] [address] 36271- 4643 Dec, Chronic pain due to trauma G89.21 and Lumbar radiculopathy M54.16 [place] [address] 23659- 2221 Dec, Lumbar radiculopathy M54.16 [place] [address] 10309- 1509 Dec, [place] [address] 42582- 1805 Nov, Chronic pain due to trauma G89.21 [place] [address] 31932- 4727 Nov, BMI 40.0-44.9, adult Z68.41 ; Lumbar radiculopathy M54.16 and Dysthymia F34.1 [place] [address] 47[address]- 4355 Nov, [place] [address] 59982- 0369 Nov, [place] [address] 68[address]- 2185 Oct, [place] [address] 34785- 8941 Oct, Chronic pain due to trauma G89.21 ; Gastroesophageal reflux disease, esophagitis presence not specified K21.9 ; Dysthymia F34.1 ; Lumbar radiculopathy M54.16 ; Esophageal dysphagia R13.10 and BMI 40.0-44.9, adult Z68.41 [facility] IN [facility] [address] [address] Sep, History of anemia Z86.2 and Acute allergic rhinitis, unspecified seasonality, unspecified trigger J30.9 [facility] [address] [place] [address]- [address] Sep, [facility] [id number] [place] [address]- 7335 Jul, [facility] [id number] [place] [address], [place] [address]- 3085 14 Jan, 2015 [facility] [id number] [place] [address], [place] [address]- 6068 Jan, [facility] [id number] [place] [address], [place] [address] Nov, [facility] [id number] [place] [address], [place] [address]- 8772 Nov, [facility] [id number] [place] [address], [place] [address]- 9499 Oct, [facility] [address] [place] [address]- 9350 Aug, [facility] [id number] [place] [address]- 4749 Aug, [facility] [address], [place] [address]- 2453 Jul, [facility] [address], [place] [address]- 7032 Jul, [facility] [address] [address] Jul, [facility] [address] [place] [address] Jul, [facility] [address], [place] [address]- 6146 Jul, [facility] [address] [place] [address] 05816- 2236 24 Jun, 2013 [facility] [place] [facility] [address] [id number] [place] [address]- 4420 Jun, [facility] [place] [facility] [address] [id number] [place] [address]- 0030 Jun, [facility] [place] [facility] [address] [id number] [place] [address]- 3681 May, [facility] [place] [facility] [address] [id number] [place] [address]- 3452 May, [facility] [place] [facility] [address] [id number] [place] [address]- 1712 May, [facility] [place] [facility] [address] [id number] [place] [address]- 8492 May, [facility] [place] [facility] [address] [id number] [place] [address]- 2475 Apr, [facility] [place] [facility] [address] [id number] [place] [address]- 3840 Apr, [facility] [place] [facility] [address] [id number] [place] [address]- 6323 Apr, [facility] [place] [facility] [address] [id number] [place] [address]- 9034 Apr, [facility] [place] [facility] [address] [id number] [place] [address]- 1155 Mar, [facility] [place] [facility] [address] [id number] [place] [address]- 7092 Mar, [facility] [place] [facility] [address] [id number] [place] [address]- 3925 Mar, [facility] [place] [facility] [address] [id number] [place] [address]- 2574 February, [facility] [place] [facility] [address] [id number] [place] [address]- 8116 February, [facility] [place] [facility] [address] [id number] [place] [address]- 6469 February, [facility] [address] [id number] [place] [address]- 8688 February, [facility] [address] [id number] [place] [address]- 6432 February, [facility] [address] [id number] [place] [address]- 6893 February, [facility] [address] [id number] [place] [address]- 4327 Jan, [facility] [address] [id number] [place] [address]- 5481 Jan, [facility] [address] [id number] [place] [address]- 7704 Dec, [facility] [address] [id number] [place] [address]- 0299 Dec, [facility] [address] [id number] [place] [address]- 7268 Dec, [facility] [address] [id number] [place] [address]- 8002 Dec, [facility] [address] [facility] [id number] [place] [address]- 5812 Dec, [facility] [place] [facility] [address] [id number] [place] [address]- 4878 Nov, [facility] [place] [facility] [address] [id number] [place] [address]- 7219 Nov, [facility] [place] [facility] [address] [id number] [place] [address]- 8996 Nov, [facility] [place] [facility] [address] [id number] [place] [address]- 2546 07 Nov, 2012 [facility] [place] [facility] [address] [id number] [place] [address]- 6581 Nov, [facility] [place] [facility] [address] [id number] [place] [address]- 6915 Oct, [facility] [place] [facility] [address] [id number] [place] [address]- 0356 Oct, [facility] [place] [facility] [address] [id number] [place] [address]- 1478 Sep, [facility] [place] [facility] [address] [id number] [place] [address]- 6436 Sep, [facility] [place] [facility] [address] [id number] [place] [address]- 6199 Sep, [facility] [place] [facility] [address] [id number] [place] [address]- 2926 Sep, [facility] [place] [facility] [address] [id number] [place] [address]- 6689 Sep, [facility] [place] [facility] [address] [id number] [place] [address]- 0010 Sep, [facility] [place] [facility] [address] [id number] [place] [address]- 6125 Sep, [facility] [place] [facility] [address] [id number] [place] [address]- 6896 Sep, [facility] [place] [facility] [address] [id number], [place] [address]- 4045 Aug, [facility] [place] [facility] [address] [id number], [place] [address]- 5277 Aug, [facility] [place] [facility] [address] [id number] [place] [address]- 3807 Aug, [facility] [place] [facility] [address] [id number] [place] [address]- 0046 Aug, [facility] [place] [facility] [address] [id number] [place] [address]- 2416 Aug, [facility] [place] [facility] [address] [id number], [place] [address]- 2835 Aug, [facility] [place] [facility] [address] [id number] [place] [address]- 8115 Aug, [facility] [place] [facility] [address] [id number] [place] [address]- 6807 Jul, [facility] [place] [facility] [address] [facility] [id number] [place] [address]- 6976 Jul, [facility] [place] [facility] [address] [id number] [place] [address]- 4089 Jul, [facility] [place] [facility] [address] [id number] [place] [address], [place] [address]- 5523 Jul, [facility] [place] [facility] [address] [facility] [id number] [place] [address]- 8655 Jul, [facility] [place] [facility] [id number] [place] [address]- 1296 Jul, [facility] [place] [facility] [address] [facility] [id number] [place] [address]- 6745 Jul, [facility] [place] [facility] [id number] [place] [address]- 4695 Jun, [facility] [place] [facility] [address] [facility] [id number] [place] [address]- 3538 Jun, [facility] [place] [facility] [address] [facility] [id number] [place] [address]- 2995 05 Jun, 2012 [facility] [place] [facility] [address] [facility] [id number], [place] [address]- 8253 May, [facility] [place] [facility] [address] [id number] [place] [address]- 0856 May, [facility] [place] [facility] [address] [facility] [id number] [place] [address]- 1028 Apr, [facility] [place] [facility] [id number] [place] [address]- 4903 Apr, [facility] [place] [facility] [address] [id number] [place] [address]- 0201 14 Mar, 2012 [facility] [place] [facility] [address] [id number] [place] [address]- 4096 February, [facility] [place] [facility] [address] [id number] [place] [address] 2546 February, [facility] [place] [facility] [address] [id number] [place] [address]- 8666 February, [facility] [place] [facility] [address] [id number] [place] [address]- 8496 February, [facility] [place] [facility] [address] [id number] [place] [address]- 7476 February, [facility] [place] [facility] [address] [id number] [place] [address]- 7696 February, [facility] [place] [facility] [address] [id number] [place] [address]- 7956 February, [facility] [place] [facility] [address] [id number] [place] [address]- 3347 Jan, [facility] [place] [facility] [address] [id number] [place] [address]- 2786 Dec, [facility] [place] [facility] [address] [id number] [place] [address]- 7383 Dec, [facility] [place] [facility] [address] [id number] [place] [address]- 5911 Oct, [facility] [place] [facility] [address] [id number] [place] [address]- 6620 Oct, [facility] [place] [facility] [address] [id number] [place] [address]- 6856 Oct, [facility] [place] [facility] [address] [id number] [place] [address]- 2326 Oct, [facility] [place] [facility] [address] [id number] [place] [address]- 8724 Oct, [facility] [address] [id number] [place] [address]- 6156 Oct, [facility] [place] [facility] [address] [id number] [place] [address]- 0086 Oct, [facility] [address] [id number] [place] [address]- 6388 Oct, [facility] [address] [id number] [place] [address]- 3335 Oct, [facility] [address] [id number] [place] [address]- 9584 Sep, [facility] [address] [id number] [place] [address]- 7807 Sep, [facility] [address] [id number] [place] [address]- 9195 Sep, [facility] [place] [facility] [address] [id number] [place] [address]- 3982 Sep, [facility] [place] [facility] [address] [id number] [place] [address]- 5918 Sep, [facility] [place] [facility] [address] [id number] [place] [address]- 2422 Sep, [facility] [place] [facility] [address] [id number], [place] [address]- 3489 Sep, [facility] [place] [facility] [address] [id number], [place] [address]- 9127 19 Sep, 2011 [facility] [place] [facility] [address] [id number] [place] [address]- 9378 13 Sep, 2011 [facility] [place] [facility] [address] [id number] [place] [address]- 8073 05 Sep, 2011 [facility] [place] [facility] [address] [id number] [place] [address]- 3519 15 Aug, 2011 [facility] [place] [facility] [id number], [place] [address]- 8270 Jul, [facility] [address], [place] [address]- 4285 Sep, [facility] [address], [place] [address]- 1661 Aug, [facility] [address], [place] [address]- 2973 Aug, [facility] [address], [place] [address]- 5650 Aug, [facility] [id number] [place] [address] 5[address]87- 1930 Aug, [facility] [address], [place] [address]- 4565 Jul, [facility] [address], [place] [address]- 2635 Jul, [facility] [address] [id number], [place] [address]- 8025 Jul, IMMUNIZATIONS No Known Immunizations SOCIAL HISTORY Never Assessed REASON FOR VISIT SOB, stuttering, back issue [id number] K[facility] [place] , left side under arm to knee feels like water is running down her / warm feeling then starts sweating kPageMA , gets dizzy/ lightheadedness/ only after she gets the water sensations [id number] KPage MA , getting bad headaches KPage ma PLAN OF CARE Activity Details Follow Up 4 Weeks Reason: Pending Test MRI : Lumbar w/o contrast Future/Pending Procedure PULMONARY FUNCTION TEST VITAL SIGNS Height 58.5 in 2018-08-28 Weight 188 lbs 2018-08-28 Temperature 97.7 degrees Fahrenheit 2018-08-28 Heart Rate 62 bpm 2018-08-28 Respiratory Rate 20 2018-08-28 Oximetry on room air:93 % 2018-08-28 BMI 38.62 kg/m2 2018-08-28 Blood pressure systolic 124 mmHg 2018-08-28 Blood pressure diastolic 70 mmHg 2018-08-28 MEDICATIONS Medication Instructions Dosage Frequency Start Date End Date Duration Status Mirtazapine 45 MG Orally Once a day 1 tablet at bedtime 24h 90 days Active Rosuvastatin Calcium 10 mg Orally Once a day 1 tablet 24h 90 days Active Spiriva HandiHaler 18 MCG Inhalation Once a day 1 capsule 24h Active Quetiapine Fumarate 50 mg Orally at bedtime 1 tablet Active Diclofenac Sodium 75 MG Orally Twice a day 1 tablet with food or milk 12h Jul, 2 Oct, 2018 30 day(s) Active Breo Ellipta 200-25 MCG/INH Inhalation Once a day 1 puff 24h Active Multi For Her 50+ - Orally Once a day 1 tablet 24h Active Gabapentin 600 MG Orally 3 times a day 1 tablet 8h 11 Jun, 2013 90 days Active Pantoprazole Sodium 40 mg Orally Once a day 1 tablet 24h 30 days Active Vitamin B Complex-C - Orally daily 150 mg 24h Active Colace 100 mg Orally Once a day 2 capsule as needed 24h Active Cyclobenzaprine HCl 5 mg Orally 2 times a day 1 tablet as needed 12h Apr 30 days Active Oxycodone-Acetaminophen 10-325 MG Orally 3 times a day 1 tablet as needed 8h Aug, 28 days Active MS Contin 30 MG Orally every 12 hrs 1 tablet 12h Aug, 28 days Active Lexapro 20 mg Orally Once a day 1/2 tablet 24h Active MiraLax - Orally Once a day one capful 24h Jul, 30 days Active Trintellix 10 MG Orally Once a day 1 tablet 24h 12 Jul, 2018 30 day(s) Active Zetia 10 mg Orally Once a day 1 tablet 24h 90 days Active Aspirin 81 81 MG Orally 1 and 3 1 tablet Active Duloxetine HCl 60 mg Orally Twice a day 1 capsule 12h Active Potassium Chloride ER 20 meq Orally Once a day 1 tablet with food 24h 90 days Active Furosemide 40 mg Orally Once a day 1 tablet 24h 90 days Active Spiriva HandiHaler 18 MCG Inhalation Once a day 1 capsule 24h Jul, 30 days Active RESULTS No Results PROCEDURES Procedure Date Ordered Result Body Site [facility] VISIT ESTABLISHED PATIENT Aug 28, 2018 INSTRUCTIONS MEDICATIONS ADMINISTERED No Known Medications MEDICAL (GENERAL) HISTORY Type Description Date Medical History chronic pain, back Medical History Arthritis Medical History chronic obstructive pulmonary disease (COPD) Medical History anxiety Medical History depression Medical History memory loss Medical History hypoxia Surgical History left knee replacement 2003 Surgical History right knee replacement x3 jul 2017 Surgical History shoulder replacement--Bilateral 2016 Surgical History hysterectomy, total with bilateral salpingo-oophorectomy (BSO ) 1985 Surgical History cholecystectomy 2004 Surgical History gastric bypass 2003 Surgical History rods in the back 2000 Surgical History rods removed 2004 Surgical History right ankle repair and hardware removed 2012 Hospitalization History Surgeries only Hospitalization History hypoxia 07/05-07/07/18
--- OUTSIDE RECORDS SUMMARY | 2018-11-21 09:26 | XMS REPORT ---
Author Author NEERU CANO [facility] Address [address] [place] [address] Care Team Providers Care Sodder Name Role Phone NEERU CANO Unavailable PROBLEMS Type Condition ICD9-CM Code [id number] Code Onset Dates Condition Status SNOMED Code Problem Other chronic pain G89.29 Active 58882953 Problem Hammer toe of right foot M20.41 Active 205541044 Problem Moderate episode of recurrent major depressive disorder F33.1 Active 109280984 Problem Primary osteoarthritis, right hand M19.041 Active [id number] Problem Primary osteoarthritis of left hand M19.042 Active 82871489 Problem Anxiety F41.9 Active 90931450 Problem Major depressive disorder, recurrent, in full remission F33.42 Active 06796378 Problem Stuttering F80.81 Active 32243395 Problem Severe episode of recurrent major depressive disorder, without psychotic features F33.2 Active 63280679 Problem Esophageal dysphagia R13.10 Active 41188693 Problem Lumbar radiculopathy M54.16 Active 657529352 Problem History of anemia Z86.2 Active 400450118 Problem Acute allergic rhinitis, unspecified seasonality, unspecified trigger J30.9 Active 05683069 Problem Chronic pain due to trauma G89.21 Active 102944710 Problem Atrophic gastritis without hemorrhage 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 [address] [id number] [address] Oct, [facility] [address] [id number] [address] Sep, [facility] [address] [id number] [address] Aug, [facility] [id number] [place] [address] 48253- 2845 Aug, Atrophic gastritis without hemorrhage K29.40 and Chronic pain due to trauma G89.21 [facility] [id number] [place] [address] 18178- 5886 Aug, Primary osteoarthritis of left hand M19.042 and Primary osteoarthritis, right hand M19.041 [place] [address] [address] Aug, Anxiety F41.9 ; Severe episode of recurrent major depressive disorder, without psychotic features F33.2 and Gastroesophageal reflux disease, esophagitis presence not specified K21.9 [place] [id number] [place] [address] 35633- 3003 Aug, [place] [address] [address]70- 7655 Aug, Severe episode of recurrent major depressive disorder, without psychotic features F33.2 and Anxiety F41.9 [place] [id number] [place] [address] 51473- 1499 Aug, Chronic obstructive pulmonary disease, unspecified COPD type J44.9 ; Lumbar radiculopathy M54.16 and Stuttering F80.81 [facility] [id number] [place] [address] 24373- 9399 Jul, Chronic pain due to trauma G89.21 and Atrophic gastritis without hemorrhage K29.40 [facility] [id number] [place] [address] 23516 -5938 Jul, Right hip pain M25.551 ; Urinary tract infection without hematuria, site unspecified N39.0 and Right sided abdominal pain R10.9 [facility] [id number] [place] [address] 77154- 7480 Jul, [facility] [address] 26091- 0872 Jul, [place] [address] [place] [address] 27019- 3309 Jul, [place] [id number] [place] [address] 22230- 8447 Jul, Gastroesophageal reflux disease, esophagitis presence not specified K21.9 [place] [id number] [place] [address] 12607- 5776 Jul, [place] [id number] [place] [address] 92429- 1853 Jul, Severe episode of recurrent major depressive disorder, without psychotic features F33.2 and Anxiety F41.9 [id number] [place] [address] 72896- 4322 Jul, Lumbar radiculopathy M54.16 [address] [id number] [place] [address] 63152- 6605 Jul, [place] [id number] [place] [address] 26449- 8051 Jul, Chronic pain due to trauma G89.21 and Atrophic gastritis without hemorrhage K29.40 [place] [address] [place] [address] 06580- 0846 04 Jul, 2018 Medicare annual wellness visit, initial Z00.00 ; Chronic obstructive pulmonary disease, unspecified COPD type J44.9 ; Encounter for immunization Z23 ; Other chronic pain G89.29 ; Lumbar radiculopathy M54.16 ; Gastroesophageal reflux disease, esophagitis presence not specified K21.9 ; Routine adult health maintenance Z00.00 ; Major depressive disorder, recurrent, in full remission F33.42 and Breast cancer screening Z12.31 [place] [id number] [place] [address] 88810- 1866 Jul, [place] [id number] [place] [address] 41409- 4296 Jun, Chronic obstructive pulmonary disease, unspecified COPD type J44.9 ; Lumbar radiculopathy M54.16 ; Moderate episode of recurrent major depressive disorder F33.1 and Hammer toe of right foot M20.41 [place] [address] 56350- 7474 20 Jun, 2018 [place] [id number] [place] [address] 83396- 0365 17 Jun, 2018 [facility] [address] 72262 -9249 13 Jun, 2018 Acute respiratory distress R06.03 [place] [address] 15342- 2558 05 Jun, 2018 Chronic pain due to trauma G89.21 and Atrophic gastritis without hemorrhage K29.40 [place] [address] 45234- 6359 08 May, 2018 Atrophic gastritis without hemorrhage K29.40 and Chronic pain due to trauma G89.21 [place] [address] 32934- 9330 13 Apr, 2018 Strain of neck muscle, subsequent encounter S16.1XXD and Lumbar radiculopathy M54.16 [place] [address] 42535- 4679 11 Apr, 2018 Atrophic gastritis without hemorrhage K29.40 and Chronic pain due to trauma G89.21 [place] [address] 28865- 4437 14 Mar, 2018 Chronic pain due to trauma G89.21 ; Lumbar radiculopathy M54.16 ; Dysthymia F34.1 ; Pain in right shoulder M25.511 ; Pain in left shoulder M25.512 ; Other chronic pain G89.29 and Chronic obstructive pulmonary disease, unspecified COPD type J44.9 [place] [id number] [place] [address] 69744- 7415 14 Mar, 2018 Chronic pain due to trauma G89.21 and Atrophic gastritis without hemorrhage K29.40 [place] [address] 68710- 8357 February, Chronic pain due to trauma G89.21 and Atrophic gastritis without hemorrhage K29.40 [facility] [address] [id number] [address] Jan, Chronic pain due to trauma G89.21 and Atrophic gastritis without hemorrhage K29.40 [place] [address] 51609- 3080 Jan, Atrophic gastritis without hemorrhage K29.40 [place] [address] 63035- 2599 Dec, Atrophic gastritis without hemorrhage K29.40 and Chronic pain due to trauma G89.21 [place] [address] 02000- 7622 Dec, Chronic pain due to trauma G89.21 and Lumbar radiculopathy M54.16 [place] [address] 28546- 7840 Dec, Lumbar radiculopathy M54.16 [place] [address] 36025- 0949 Dec, [place] [address] 78980- 3219 Nov, Chronic pain due to trauma G89.21 [place] [address] 68787- 7327 Nov, BMI 40.0-44.9, adult Z68.41 ; Lumbar radiculopathy M54.16 and Dysthymia F34.1 [place] [address] 90949- 0194 13 Nov, 2017 [place] [address] 78074- 1349 09 Nov, 2017 [place] [address] 95289- 5301 Oct, [facility] [address] [place] [address] 418883- 6420 Oct, Chronic pain due to trauma G89.21 ; Gastroesophageal reflux disease, esophagitis presence not specified K21.9 ; Dysthymia F34.1 ; Lumbar radiculopathy M54.16 ; Esophageal dysphagia R13.10 and BMI 40.0-44.9, adult Z68.41 [facility] [id number] [place] [address] 43334 -6088 Sep, History of anemia Z86.2 and Acute allergic rhinitis, unspecified seasonality, unspecified trigger J30.9 [facility] [id number] [place] [address] 689015- 4263 Sep, [facility] [id number] [place] [address] 00531- 6540 14 Jul, 2016 [facility] [id number] [place] [address] 21718- 7071 14 Jan, 2015 [facility] [id number] [place] [address] 04612- 9646 Jan, [facility] [id number] [place] [address] 96111- 6601 Nov, [facility] [id number] [place] [address] 91484- 8899 Nov, [facility] [id number] [place] [address] 30807- 9485 Oct, [facility] [id number] [place] [address] 24309- 3044 Aug, [facility] [id number] [place] [address] 414622- 5899 Aug, [facility] [id number] [place] [address] 01161- 0218 Jul, [facility] [address] 95301- 5102 Jul, [facility] [place] [facility] [address] [id number] [place] [address]- 2870 Jul, [facility] [place] [facility] [address] [id number] [place] [address]- 8091 Jul, [facility] [place] [facility] [address] [id number] [place] [address]- 2561 Jul, [facility] [place] [facility] [address] [id number] [place] [address]- 1956 Jun, [facility] [place] [facility] [address] [id number] [place] [address]- 2227 Jun, [facility] [place] [facility] [address] [id number] [place] [address]- 0591 Jun, [facility] [place] [facility] [address] [id number] [place] [address]- 0191 May, [facility] [place] [facility] [address] [id number] [place] [address]- 1857 May, [facility] [place] [facility] [address] [id number] [place] [address]- 6112 May, [facility] [place] [facility] [address] [id number] [place] [address]- 5697 May, [facility] [place] [facility] [address] [id number] [place] [address]- 2248 Apr, [facility] [place] [facility] [address] [id number] [place] [address]- 6807 Apr, [facility] [place] [facility] [address] [id number] [place] [address]- 5359 Apr, [facility] [place] [facility] [address] [id number] [place] [address]- 4928 Apr, [facility] [place] [facility] [address] [facility] [id number] [place] [address]- 6249 Mar, [facility] [place] [facility] [address] [id number] [place] [address]- 2546 Mar, [facility] [address] [id number] [place] [address]- 3141 Mar, [facility] [address] [id number] [place] [address]- 2546 February, [facility] [address] [id number] [place] [address]- 5206 February, [facility] [address] [id number] [place] [address]- 3576 February, [facility] [address] [id number] [place] [address]- 7068 February, [facility] [address] [id number] [place] [address]- 7710 February, [facility] [address] [id number] [place] [address]- 8626 February, [facility] [address] [id number] [place] [address]- 1799 Jan, [facility] [address] [id number] [place] [address]- 3997 Jan, [facility] [address] [id number] [place] [address]- 0548 Dec, [facility] [address] [id number] [place] [address]- 0273 Dec, [facility] [address] [id number] [place] [address]- 1957 Dec, [facility] [place] [facility] [address] [id number] [place] [address]- 9706 Dec, [facility] [place] [facility] [address] [id number] [place] [address]- 2546 Dec, [facility] [place] [facility] [address] [id number] [place] [address]- 3406 Nov, [facility] [place] [facility] [address] [id number] [place] [address]- 5511 Nov, [facility] [place] [facility] [address] [id number] [place] [address]- 2286 12 Nov, 2012 [facility] [place] [facility] [address] [id number] [place] 2656 Nov, [facility] [place] [facility] [address] [id number] [place] [address]- 5007 Nov, [facility] [place] [facility] [address] [id number] [place] [address]- 8481 Oct, [facility] [place] [facility] [address] [id number] [place] [address]- 3574 Oct, [facility] [place] [facility] [address] [id number] [place] [address]- 4639 Sep, [facility] [place] [facility] [address] [id number] [place] [address]- 2190 Sep, [facility] [place] [facility] [address] [id number] [place] [address]- 8265 Sep, [facility] [place] [facility] [address] [id number] [place] [address]- 6507 Sep, [facility] [place] [facility] [address] [id number] [place] [address]- 1166 Sep, [facility] [place] [facility] [address] [id number] [place] [address]- 5984 Sep, [facility] [place] [facility] [address] [id number] [place] [address]- 5897 Sep, [facility] [place] [facility] [address] [id number] [place] [address]- 6001 Sep, [facility] [place] [facility] [address] [id number] [place] [address]- 2409 Aug, [facility] [place] [facility] [address] [id number] [place] [address]- 5782 Aug, [facility] [place] [facility] [address] [id number] [place] [address]- 8874 Aug, [facility] [place] [facility] [address] [id number] [place] [address]- 2477 Aug, [facility] [place] [facility] [address] [id number] [place] [address]- 6735 Aug, [facility] [place] [facility] [address] [id number] [place] [address]- 9504 Aug, [facility] [place] [facility] [address] [id number] [place] [address], [place] [address]- 4082 Aug, [facility] [place] [facility] [address] [id number] [place] [address]- 4578 Jul, [facility] [place] [facility] [address] [id number] [place] [address]- 8154 Jul, [facility] [place] [facility] [address] [id number] [place] [address]- 8887 Jul, [facility] [place] [facility] [address] [id number] [place] [address]- 3996 Jul, [facility] [place] [facility] [address] [facility] [id number] [place] [address]- 3070 Jul, [facility] [place] [facility] [address] [id number] [place] [address]- 6868 Jul, [facility] [place] [facility] [address] [id number] [place] 5064 Jul, [facility] [place] [facility] [address] [id number] [place] [address]- 1322 18 Jun, 2012 [facility] [place] [facility] [address] [id number] [place] [address]- 8006 06 Sep2011 [facility] [place] [facility] [address] [id number] [place] [address]- 7023 Jun, [facility] [address] [id number] [place] [address]- 9196 May, [facility] [place] [facility] [address] [id number] [place] [address]- 5686 May, [facility] [place] [facility] [address] [id number] [place] [address]- 2546 Apr, [facility] [place] [facility] [address] [id number] [place] [address]- 2546 Apr, [facility] [place] [facility] [address] [id number] [place] [address]- 6481 Mar, [facility] [place] [facility] [address] [id number] [place] [address]- 1686 February, [facility] [place] [facility] [address] [id number] [place] [address]- 3126 February, [facility] [place] [facility] [address] [id number] [place] [address]- 6726 February, [facility] [place] [facility] [address] [id number] [place] [address]- 1454 February, [facility] [place] [facility] [address] [id number] [place] [address]- 6766 February, [facility] [place] [facility] [address] [id number] [place] [address]- 2546 February, [facility] [place] [facility] [address] [id number] [place] [address]- 1836 February, [facility] [place] [facility] [address] [id number] [place] [address]- 7376 Jan, [facility] [place] [facility] [address] [id number] [place] [address]- 1906 Dec, [facility] [place] [facility] [address] [id number] [place] [address]- 6736 Dec, [facility] [place] [facility] [address] [id number] [address]- 9478 Oct, [facility] [address] [id number] [place] [address]- 2271 Oct, [facility] [address] [id number] [place] [address]- 2421 Oct, [facility] [address] [id number] [place] [address]- 8405 Oct, [facility] [address] [id number] [place] [address]- 0774 Oct, [facility] [address] [id number] [place] [address]- 5060 Oct, [facility] [address] [id number] [place] [address]- 2528 Oct, [facility] [address] [facility] [id number] [place] [address]- 1860 Oct, [facility] [address] [id number] [place] [address]- 4634 Oct, [facility] [address] [id number] [place] [address]- 7688 Sep, [facility] [address] [id number] [place] [address]- 9585 Sep, [facility] [address] [id number] [place] [address]- 4358 Sep, [facility] [address] [id number] [place] [address]- 9995 Sep, [facility] [address] [id number] [place] [address]- 3247 Sep, [facility] [address] [facility] [id number] [place] [address]- 7820 Sep, [facility] [address] [id number] [place] [address]- 5598 Sep, [facility] [address] [facility] [id number] [place] [address]- 5253 Sep, [facility] [address] [facility] [id number] [place] 3377 Sep, [facility] [address] [facility] [id number] [place] [address]- 1232 Sep, [facility] [address] [facility] [id number] [place] [address]- 2266 Aug, [facility] [address] [facility] [id number] [place] [address]- 3911 Jul, [facility] [address] [facility] [id number] [place] [address] 05269- 8172 Sep, [facility] [address] [facility] [id number] [place] [address]- 2574 Aug, [facility] [address] [address]- 6060 Aug, [facility] [address] [address]- 2571 Aug, [facility] [address] [address]- 0752 Aug, [facility] [address] [address]- 7362 Jul, [facility] [address] [address]- 8920 Jul, [facility] [id number] [address]- 8260 Jul, IMMUNIZATIONS No Known Immunizations SOCIAL HISTORY Never Assessed REASON FOR VISIT Controlled Med Refill 09/20 PLAN OF CARE VITAL SIGNS MEDICATIONS Medication Instructions Dosage Frequency Start Date End Date Duration Status MS Contin 30 MG Orally every 12 hrs 1 tablet 12h Aug, 28 days Active Oxycodone-Acetaminophen 10-325 MG Orally 3 times a day 1 tablet as needed 8h Aug, 28 days Active RESULTS No Results PROCEDURES No Known procedures INSTRUCTIONS MEDICATIONS ADMINISTERED No Known Medications MEDICAL [...] salpingo-oophorectomy (BSO ) 1985 Surgical History cholecystectomy 2003 Surgical History gastric bypass 2003 Surgical History rods in the back 2000 Surgical History rods removed 2004 Surgical History right ankle repair and hardware removed 2013 Hospitalization History Surgeries only Hospitalization History hypoxia 07/05-07/07/18
--- OUTSIDE RECORDS SUMMARY | 2018-11-21 09:26 | XMS REPORT ---
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 Name Role Phone NEERU CANO Unavailable PROBLEMS Type Condition ICD9-CM Code YFM79-MD Code Onset Dates Condition Status SNOMED Code Problem Other chronic pain G89.29 Active 01993446 Problem Hammer toe of right foot M20.41 Active 042701436 Problem Moderate episode of recurrent major depressive disorder F33.1 Active 619657643 Problem Primary osteoarthritis, right hand M19.041 Active [id number] Problem Primary osteoarthritis of left hand M19.042 Active 08375687 Problem Anxiety F41.9 Active 70698676 Problem Major depressive disorder, recurrent, in full remission F33.42 Active 25439191 Problem Stuttering F80.81 Active 64981187 Problem Severe episode of recurrent major depressive disorder, without psychotic features F33.2 Active 27006137 Problem Esophageal dysphagia R13.10 Active 25180972 Problem Lumbar radiculopathy M54.16 Active 813869577 Problem History of anemia Z86.2 Active 666602305 Problem Acute allergic rhinitis, unspecified seasonality, unspecified trigger J30.9 Active 02034236 Problem Chronic pain due to trauma G89.21 Active 803070768 Problem Atrophic gastritis without hemorrhage 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.40 Active 65665337 Problem Gastroesophageal reflux disease, esophagitis presence not specified K21.9 Active 307691446 Problem Chronic obstructive pulmonary disease, unspecified COPD type J44.9 Active [id number] ALLERGIES No Information ENCOUNTERS Encounter Location Date Diagnosis [facility] [id number] [address] Oct, [facility] [id number] [address] Sep, [facility] [id number] [address] Aug, [facility] [id number] [place] [address] 53489- 7562 Aug, Atrophic gastritis without hemorrhage K29.40 and Chronic pain due to trauma G89.21 [facility] [id number] [place] [address] 35100- 4968 Aug, Primary osteoarthritis of left hand M19.042 and Primary osteoarthritis, right hand M19.041 [place] [address] [address]- [address]65 Aug, Anxiety F41.9 ; Severe episode of recurrent major depressive disorder, without psychotic features F33.2 and Gastroesophageal reflux disease, esophagitis presence not specified K21.9 [place] [id number] [place] [address] 96609- 2896 Aug, [place] [address] [address]51- 8068 Aug, Severe episode of recurrent major depressive disorder, without psychotic features F33.2 and Anxiety F41.9 [place] [id number] [place] [address] 03393- 0487 Aug, Chronic obstructive pulmonary disease, unspecified COPD type J44.9 ; Lumbar radiculopathy M54.16 and Stuttering F80.81 [facility] [id number] [place] [address] 27413- 5016 Jul, Chronic pain due to trauma G89.21 and Atrophic gastritis without hemorrhage K29.40 [facility] [id number] [place] [address] 82223 -0388 Jul, Right hip pain M25.551 ; Urinary tract infection without hematuria, site unspecified N39.0 and Right sided abdominal pain R10.9 [facility] [id number] [place] [address] 25672- 3406 Jul, [facility] [address] 91012- 5589 Jul, [place] [id number] [place] [address] 89371- 6382 Jul, [place] [id number] [place] [address] 15412- 9342 Jul, Gastroesophageal reflux disease, esophagitis presence not specified K21.9 [place] [id number] [place] [address] 25585- 2901 Jul, [place] [id number] [place] [address] 55383- 0488 Jul, Severe episode of recurrent major depressive disorder, without psychotic features F33.2 and Anxiety F41.9 [place] [id number] [place] [address] 80474- 0576 Jul, Lumbar radiculopathy M54.16 [id number] [place] [address] 91659- 1742 Jul, [place] [id number] [place] [address] 10424- 5210 Jul, Chronic pain due to trauma G89.21 and Atrophic gastritis without hemorrhage K29.40 [place] [id number] [place] [address] 39783- 5961 04 Jul, 2018 Medicare annual wellness visit, initial Z00.00 ; Chronic obstructive pulmonary disease, unspecified COPD type J44.9 ; Encounter for immunization Z23 ; Other chronic pain G89.29 ; Lumbar radiculopathy M54.16 ; Gastroesophageal reflux disease, esophagitis presence not specified K21.9 ; Routine adult health maintenance Z00.00 ; Major depressive disorder, recurrent, in full remission F33.42 and Breast cancer screening Z12.31 [place] [id number] [place] [address] 99735- 8937 Jul, [place] [id number] [place] [address] 24433- 0966 Jun, Chronic obstructive pulmonary disease, unspecified COPD type J44.9 ; Lumbar radiculopathy M54.16 ; Moderate episode of recurrent major depressive disorder F33.1 and Hammer toe of right foot M20.41 [place] [address] 90950- 5900 20 Jun, 2018 [place] [id number] [place] [address] 82514- 0655 17 Jun, 2018 [facility] [address] 6[address] -7582 13 Jun, 2018 Acute respiratory distress R06.03 [place] [address] 73431- 5868 05 Jun, 2018 Chronic pain due to trauma G89.21 and Atrophic gastritis without hemorrhage K29.40 [place] [address] 15629- 6840 08 May, 2018 Atrophic gastritis without hemorrhage K29.40 and Chronic pain due to trauma G89.21 [place] [address] 91011- 0264 13 Apr, 2018 Strain of neck muscle, subsequent encounter S16.1XXD and Lumbar radiculopathy M54.16 [place] [address] 62026- 5991 11 Apr, 2018 Atrophic gastritis without hemorrhage K29.40 and Chronic pain due to trauma G89.21 [place] [address] 98982- 7965 14 Mar, 2018 Chronic pain due to trauma G89.21 ; Lumbar radiculopathy M54.16 ; Dysthymia F34.1 ; Pain in right shoulder M25.511 ; Pain in left shoulder M25.512 ; Other chronic pain G89.29 and Chronic obstructive pulmonary disease, unspecified COPD type J44.9 [place] [id number] [place] [address] 75251- 7665 14 Mar, 2018 Chronic pain due to trauma G89.21 and Atrophic gastritis without hemorrhage K29.40 [place] [address] 58311- 0888 February, Chronic pain due to trauma G89.21 and Atrophic gastritis without hemorrhage K29.40 [facility] [address] [id number]- 9161 Jan, Chronic pain due to trauma G89.21 and Atrophic gastritis without hemorrhage K29.40 [place] [address] 55820- 4229 Jan, Atrophic gastritis without hemorrhage K29.40 [place] [address] 53779- 4501 Dec, Atrophic gastritis without hemorrhage K29.40 and Chronic pain due to trauma G89.21 [place] [address] 37091- 5450 Dec, Chronic pain due to trauma G89.21 and Lumbar radiculopathy M54.16 [place] [address] 27868- 2864 Dec, Lumbar radiculopathy M54.16 [place] [address] 17905- 8251 Dec, [place] [address] 37204- 2157 Nov, Chronic pain due to trauma G89.21 [place] [address] 39501- 2206 Nov, BMI 40.0-44.9, adult Z68.41 ; Lumbar radiculopathy M54.16 and Dysthymia F34.1 [place] [address] 38990- 2190 13 Nov, 2017 [place] [address] 31737- 5575 09 Nov, 2017 [place] [address] 57777- 9387 Oct, [facility] [address] [place] [address] 177865- 1151 Oct, Chronic pain due to trauma G89.21 ; Gastroesophageal reflux disease, esophagitis presence not specified K21.9 ; Dysthymia F34.1 ; Lumbar radiculopathy M54.16 ; Esophageal dysphagia R13.10 and BMI 40.0-44.9, adult Z68.41 [facility] [id number] [place] [address] 56000 -4165 Sep, History of anemia Z86.2 and Acute allergic rhinitis, unspecified seasonality, unspecified trigger J30.9 [facility] [id number] [place] [address] 035681- 4551 Sep, [facility] [id number] [place] [address] 64085- 8913 14 Jul, 2016 [facility] [id number] [place] [address] 64331- 4217 14 Jan, 2015 [facility] [id number] [place] [address] 43402- 4084 Jan, [facility] [id number] [place] [address] 52558- 6577 Nov, [facility] [id number] [place] [address] 58625- 8922 Nov, [facility] [id number] [place] [address] 76533- 3005 Oct, [facility] [id number] [place] [address] 77977- 4170 Aug, [facility] [id number] [place] [address] 894331- 7353 Aug, [facility] [id number] [place] [address] 40184- 1363 Jul, [facility] [address] 26689- 4371 Jul, [facility] [place] [facility] [address] [id number] [place] [address]- 5048 Jul, [facility] [place] [facility] [address] [id number] [place] [address]- 9061 Jul, [facility] [place] [facility] [address] [id number] [place] [address]- 9852 Jul, [facility] [place] [facility] [address] [id number] [place] [address]- 4393 Jun, [facility] [place] [facility] [address] [id number] [place] [address]- 7451 Jun, [facility] [place] [facility] [address] [id number] [place] [address]- 4377 Jun, [facility] [place] [facility] [address] [id number] [place] [address]- 8792 May, [facility] [place] [facility] [address] [id number] [place] [address]- 9758 May, [facility] [place] [facility] [address] [id number] [place] [address]- 7897 May, [facility] [place] [facility] [address] [id number] [place] [address]- 5454 May, [facility] [place] [facility] [address] [id number] [place] [address]- 6470 Apr, [facility] [place] [facility] [address] [id number] [place] [address]- 9583 Apr, [facility] [place] [facility] [address] [id number] [place] [address]- 0944 Apr, [facility] [place] [facility] [address] [id number] [place] [address]- 6315 Apr, [facility] [place] [facility] [address] [facility] [id number] [place] [address]- 5838 Mar, [facility] [place] [facility] [address] [id number] [place] [address]- 2546 Mar, [facility] [address] [id number] [place] [address]- 5329 Mar, [facility] [address] [id number] [place] [address]- 2546 February, [facility] [address] [id number] [place] [address]- 0386 February, [facility] [address] [id number] [place] [address]- 1836 February, [facility] [address] [id number] [place] [address]- 8117 February, [facility] [address] [id number] [place] [address]- 2261 February, [facility] [address] [id number] [place] [address]- 4154 February, [facility] [address] [id number] [place] [address]- 7544 Jan, [facility] [address] [id number] [place] [address]- 2690 Jan, [facility] [address] [id number] [place] [address]- 6679 Dec, [facility] [address] [id number] [place] [address]- 0368 Dec, [facility] [address] [id number] [place] [address]- 2566 Dec, [facility] [place] [facility] [address] [id number] [place] [address]- 1756 Dec, [facility] [place] [facility] [address] [id number] [place] [address]- 2546 Dec, [facility] [place] [facility] [address] [id number] [place] [address]- 2326 Nov, [facility] [place] [facility] [address] [id number] [place] [address]- 6933 Nov, [facility] [place] [facility] [address] [id number] [place] [address]- 2206 12 Nov, 2012 [facility] [place] [facility] [address] [id number] [place] [address] Nov, [facility] [place] [facility] [address] [id number] [place] [address]- 6867 Nov, [facility] [place] [facility] [address] [id number] [place] [address]- 5309 Oct, [facility] [place] [facility] [address] [id number] [place] [address]- 0185 Oct, [facility] [place] [facility] [address] [id number] [place] [address]- 0948 Sep, [facility] [place] [facility] [address] [id number] [place] [address]- 3730 Sep, [facility] [place] [facility] [address] [id number] [place] [address]- 3745 Sep, [facility] [place] [facility] [address] [id number] [place] [address]- 2758 Sep, [facility] [place] [facility] [address] [id number] [place] [address]- 8800 Sep, [facility] [place] [facility] [address] [id number] [place] [address]- 9675 Sep, [facility] [place] [facility] [address] [id number] [place] [address]- 8392 Sep, [facility] [place] [facility] [address] [id number] [place] [address]- 8247 Sep, [facility] [place] [facility] [address] [id number] [place] [address]- 8577 Aug, [facility] [place] [facility] [address] [id number] [place] [address]- 1308 Aug, [facility] [place] [facility] [address] [id number] [place] [address]- 2543 Aug, [facility] [place] [facility] [address] [id number] [place] [address]- 1215 Aug, [facility] [place] [facility] [address] [id number] [place] [address]- 9070 Aug, [facility] [place] [facility] [address] [id number] [place] [address]- 8354 Aug, [facility] [place] [facility] [address] [id number] [place] [address], [place] [address]- 4965 Aug, [facility] [place] [facility] [address] [id number] [place] [address]- 3860 Jul, [facility] [place] [facility] [address] [id number] [place] [address]- 3616 Jul, [facility] [place] [facility] [address] [id number] [place] [address]- 3042 Jul, [facility] [place] [facility] [address] [id number] [place] [address]- 0166 Jul, [facility] [place] [facility] [address] [facility] [id number] [place] [address]- 4514 Jul, [facility] [place] [facility] [address] [id number] [place] [address]- 8373 Jul, [facility] [place] [facility] [address] [id number] [place] 0115 Jul, [facility] [place] [facility] [address] [id number] [place] [address]- 4981 18 Jun, 2012 [facility] [place] [facility] [address] [id number] [place] [address]- 5326 06 Sep2011 [facility] [place] [facility] [address] [id number] [place] [address]- 0227 Jun, [facility] [address] [id number] [place] [address]- 4110 May, [facility] [place] [facility] [address] [id number] [place] [address]- 9496 May, [facility] [place] [facility] [address] [id number] [place] [address]- 2546 Apr, [facility] [place] [facility] [address] [id number] [place] [address]- 2546 Apr, [facility] [place] [facility] [address] [id number] [place] [address]- 2375 Mar, [facility] [place] [facility] [address] [id number] [place] [address]- 1756 February, [facility] [place] [facility] [address] [id number] [place] [address]- 4596 February, [facility] [place] [facility] [address] [id number] [place] [address]- 2716 February, [facility] [place] [facility] [address] [id number] [place] [address]- 4969 February, [facility] [place] [facility] [address] [id number] [place] [address]- 0406 February, [facility] [place] [facility] [address] [id number] [place] [address]- 2546 February, [facility] [place] [facility] [address] [id number] [place] [address]- 7026 February, [facility] [place] [facility] [address] [id number] [place] [address]- 6206 Jan, [facility] [place] [facility] [address] [id number] [place] [address]- 5226 Dec, [facility] [place] [facility] [address] [id number] [place] [address]- 6776 Dec, [facility] [place] [facility] [address] [id number] [address]- 1086 Oct, [facility] [address] [id number] [place] [address]- 8588 Oct, [facility] [address] [id number] [place] [address]- 4680 Oct, [facility] [address] [id number] [place] [address]- 1928 Oct, [facility] [address] [id number] [place] [address]- 8636 Oct, [facility] [address] [id number] [place] [address]- 5877 Oct, [facility] [address] [id number] [place] [address]- 9157 Oct, [facility] [address] [facility] [id number] [place] [address]- 6844 Oct, [facility] [address] [id number] [place] [address]- 1996 Oct, [facility] [address] [id number] [place] [address]- 0002 Sep, [facility] [address] [id number] [place] [address]- 9646 Sep, [facility] [address] [id number] [place] [address]- 5335 Sep, [facility] [address] [id number] [place] [address]- 9160 Sep, [facility] [address] [id number] [place] [address]- 1804 Sep, [facility] [address] [facility] [id number] [place] [address]- 7725 Sep, [facility] [address] [id number] [place] [address]- 9369 Sep, [facility] [address] [facility] [id number] [address]- 6918 Sep, [facility] [address] [facility] [id number] [address]- 1788 Sep, [facility] [address] [facility] [id number] [address]- 0599 Sep, [facility] [address] [facility] [id number] [address]- 9682 Aug, [facility] [address] [facility] [id number] [address]- 8309 Jul, [facility] [address] [facility] [id number] [address]- 1444 Sep, [facility] [address] [facility] [id number] [address]- 7819 Aug, [facility] [address] [address]- 5235 Aug, [facility] [address] [address]- 6235 Aug, [facility] [address] [address]- 8201 Aug, [facility] [address] [id number] [address]- 9625 Jul, [facility] [address] [id number] [address]- 4445 Jul, [facility] [address] [id number] [address]- 9609 Jul, IMMUNIZATIONS No Known Immunizations SOCIAL HISTORY Never Assessed REASON FOR VISIT [facility] call PLAN OF CARE VITAL SIGNS MEDICATIONS Unknown Medications RESULTS No Results PROCEDURES No Known procedures [...]
--- OUTSIDE RECORDS SUMMARY | 2018-11-21 09:27 | XMS REPORT ---
Author Author CORINNE SANTOS [facility] [address] Address [address] [place] [address] Care Team Providers Care Passenger Service Manager Name Role Phone CORINNE SANTOS Unavailable PROBLEMS Type Condition ICD9-CM Code DGE59-TB Code Onset Dates Condition Status SNOMED Code Problem Atrophic gastritis without hemorrhage K29.40 Active 70979949 Problem Other chronic pain G89.29 Active 23952504 Problem Chronic obstructive pulmonary disease, unspecified COPD type J44.9 Active 62025201 Problem Stuttering F80.81 Active 84496556 Problem Severe episode of recurrent major depressive disorder, without psychotic features F33.2 Active 24062330 Problem Hammer toe of right foot M20.41 Active 428597808 Problem Moderate episode of recurrent major depressive disorder F33.1 Active 749929366 Problem Anxiety F41.9 Active 47146041 Problem Major depressive disorder, recurrent, in full remission F33.42 Active 72322624 Problem Chronic pain due to trauma G89.21 Active 613753468 Problem Gastroesophageal reflux disease, esophagitis presence not specified K21.9 Active 079549731 Problem Esophageal dysphagia R13.10 Active 80069451 Problem History of anemia Z86.2 Active 010209701 Problem Lumbar radiculopathy M54.16 Active 023528253 Problem Acute allergic rhinitis, unspecified seasonality, unspecified trigger J30.9 Active 36720265 ALLERGIES Substance Reaction Event Type Date Status Penicillin G Sodium headache Drug Allergy Aug, Active Nalbuphine HCl headache Drug Allergy Aug, Active ENCOUNTERS Encounter Location Date Diagnosis [facility] [id number], [place] [address] Oct, [facility] [id number], [place] [address] Sep, [facility] [id number], [place] [address] Aug, Anxiety F41.9 ; Severe episode of recurrent major depressive disorder, without psychotic features F33.2 and Gastroesophageal reflux disease, esophagitis presence not specified K21.9 [facility] [id number] [place] [address]22- 6536 Aug, [facility] [id number] [place] [address] 42576- 8398 Aug, Severe episode of recurrent major depressive disorder, without psychotic features F33.2 and Anxiety F41.9 [facility] [address] [address] Aug, Chronic obstructive pulmonary disease, unspecified COPD type J44.9 ; Lumbar radiculopathy M54.16 and Stuttering F80.81 [facility] [address] [address] Jul, Chronic pain due to trauma G89.21 and Atrophic gastritis without hemorrhage K29.40 [facility] [id number] [place] [address] -[address]27 Jul, Right hip pain M25.551 ; Urinary tract infection without hematuria, site unspecified N39.0 and Right sided abdominal pain R10.9 [facility] [id number] [place] [address] 33001- 9455 Jul, [facility] [id number] [place] [address] 42774- 1537 Jul, [facility] [id number] [place] [address] 99487- 3324 Jul, [facility] [address] [address]- [address]68 Jul, Gastroesophageal reflux disease, esophagitis presence not specified K21.9 [facility] [id number] [place] [address] 07820- 2873 Jul, [facility] [address] [address]- 5770 Jul, Severe episode of recurrent major depressive disorder, without psychotic features F33.2 and Anxiety F41.9 [facility] [id number] [place] [address] 67649- 6526 Jul, Lumbar radiculopathy M54.16 [facility] [id number] [place] [address] 40237- 9223 Jul, [facility] [address] [address]93- 5529 Jul, Chronic pain due to trauma G89.21 and Atrophic gastritis without hemorrhage K29.40 [facility] [address] [address]- 8780 04 Jul, 2018 Medicare annual wellness visit, initial Z00.00 ; Chronic obstructive pulmonary disease, unspecified COPD type J44.9 ; Encounter for immunization Z23 ; Other chronic pain G89.29 ; Lumbar radiculopathy M54.16 ; Gastroesophageal reflux disease, esophagitis presence not specified K21.9 ; Routine adult health maintenance Z00.00 ; Major depressive disorder, recurrent, in full remission F33.42 and Breast cancer screening Z12.31 [facility] [id number] [place] [address] 45698- 2859 Jul, [facility] [id number] [place] [address] 52248- 6795 Jun, Chronic obstructive pulmonary disease, unspecified COPD type J44.9 ; Lumbar radiculopathy M54.16 ; Moderate episode of recurrent major depressive disorder F33.1 and Hammer toe of right foot M20.41 [facility] [id number] [place] [address] 08017- 0302 Jun, [facility] [address] [address]- 2388 17 Jun, 2018 [facility] [id number] [place] [address] 48608 -0082 13 Jun, 2018 Acute respiratory distress R06.03 [facility] [id number] [place] [address] 84115- 4744 05 Jun, 2018 Chronic pain due to trauma G89.21 and Atrophic gastritis without hemorrhage K29.40 [facility] [id number] [place] [id number] May, Atrophic gastritis without hemorrhage K29.40 and Chronic pain due to trauma G89.21 [facility] [address] 80761- 1841 13 Apr, 2018 Strain of neck muscle, subsequent encounter S16.1XXD and Lumbar radiculopathy M54.16 [facility] [address] 73995- 4962 Apr, Atrophic gastritis without hemorrhage K29.40 and Chronic pain due to trauma G89.21 [facility] [address] 21907- 4617 Mar, Chronic pain due to trauma G89.21 ; Lumbar radiculopathy M54.16 ; Dysthymia F34.1 ; Pain in right shoulder M25.511 ; Pain in left shoulder M25.512 ; Other chronic pain G89.29 and Chronic obstructive pulmonary disease, unspecified COPD type J44.9 [facility] [id number] [place] [address] 23091- 7454 Mar, Chronic pain due to trauma G89.21 and Atrophic gastritis without hemorrhage K29.40 [facility] [id number] [place] [address] 64112- 5104 February, Chronic pain due to trauma G89.21 and Atrophic gastritis without hemorrhage K29.40 [facility] [address] 26016- 3042 Jan, Chronic pain due to trauma G89.21 and Atrophic gastritis without hemorrhage K29.40 [facility] [id number] [place] [address] 01872- 4047 Jan, Atrophic gastritis without hemorrhage K29.40 [facility] [address] 96360- 2245 Dec, Atrophic gastritis without hemorrhage K29.40 and Chronic pain due to trauma G89.21 [facility] [address] 58286- 9724 Dec, Chronic pain due to trauma G89.21 and Lumbar radiculopathy M54.16 [facility] [address] 76464- 6601 Dec, Lumbar radiculopathy M54.16 [facility] [address] 94742- 7486 Dec, [facility] [address] 17588- 0277 Nov, Chronic pain due to trauma G89.21 [facility] [address] 90338- 4486 Nov, BMI 40.0-44.9, adult Z68.41 ; Lumbar radiculopathy M54.16 and Dysthymia F34.1 [facility] [address] 21102- 6969 Nov, [facility] [address] 31880- 8677 Nov, [place] [address] 61943- 2788 Oct, [facility] [address] 36592- 6612 Oct, Chronic pain due to trauma G89.21 ; Gastroesophageal reflux disease, esophagitis presence not specified K21.9 ; Dysthymia F34.1 ; Lumbar radiculopathy M54.16 ; Esophageal dysphagia R13.10 and BMI 40.0-44.9, adult Z68.41 [facility] [address] 13597 -[address]25 Sep, History of anemia Z86.2 and Acute allergic rhinitis, unspecified seasonality, unspecified trigger J30.9 [facility] [address] [place] [address] 8787 Sep, [facility] [id number] [place] [address] 5663 Jul, [facility] [id number] [place] [address], [place] [address]- 5505 14 Jan, 2015 [facility] [address] [facility] [id number] [place] [address]- 9466 Jan, [facility] [id number] [place] [address], [place] [address]- 4308 Nov, [facility] [id number] [place] [address] 38889- 9759 Nov, [facility] [id number] [place] [address], [place] [address]- 1173 Oct, [facility] [address] [place] [address]- 4196 Aug, [facility] [address], [place] [address]- 8183 Aug, [facility] [address], [place] [address]- 3856 Jul, [facility] [address], [place] [address]- 6045 Jul, [facility] [id number] 7671 Jul, [facility] [address] [address] Jul, [facility] [id number] 1649 Jul, [facility] [address], [place] [address]- 0954 Jun, 2013 [facility] [place] [facility] [address] [id number] [place] [address]- 7450 Jun, [facility] [place] [facility] [address] [id number] [place] [address]- 2338 Jun, [facility] [place] [facility] [address] [id number] [place] [address]- 1802 May, [facility] [place] [facility] [address] [id number] [place] [address]- 5196 May, [facility] [place] [facility] [address] [id number] [place] [address]- 8279 May, [facility] [place] [facility] [address] [id number] [place] [address]- 0933 May, [facility] [place] [facility] [address] [id number] [place] [address]- 2344 Apr, [facility] [place] [facility] [address] [id number] [place] [address]- 8941 Apr, [facility] [place] [facility] [address] [id number] [place] [address]- 7367 Apr, [facility] [place] [facility] [address] [id number] [place] [address]- 4722 Apr, [facility] [place] [facility] [address] [id number] [address]- 7827 Mar, [facility] [place] [facility] [address] [id number], [place] [address]- 6797 Mar, [facility] [place] [facility] [address] [id number] [place] [address]- 1467 Mar, [facility] [place] [facility] [address] [id number] [place] [address]- 6106 February, [facility] [place] [facility] [address] [id number] [place] [address]- 0793 February, [facility] [place] [facility] [address] [id number] [place] [address]- 9257 February, [facility] [address] [id number] [place] [address]- 7468 February, [facility] [address] [id number] [place] [address]- 2728 February, [facility] [address] [id number] [place] [address]- 1906 February, [facility] [address] [id number] [place] [address]- 3565 Jan, [facility] [address] [id number] [place] [address]- 7542 Jan, [facility] [address] [id number] [place] [address]- 3815 Dec, [facility] [address] [id number] [place] [address]- 1275 Dec, [facility] [address] [id number] [place] [address]- 2464 Dec, [facility] [address] [id number] [place] [address]- 1846 Dec, [facility] [address] [facility] [id number] [place] [address]- 0116 Dec, [facility] [place] [facility] [address] [id number] [place] [address]- 7295 Nov, [facility] [place] [facility] [address] [id number] [place] [address]- 4874 Nov, [facility] [place] [facility] [address] [id number] [place] [address]- 1366 Nov, [facility] [place] [facility] [address] [id number] [place] [address]- 2546 07 Nov, 2012 [facility] [place] [facility] [address] [id number] [place] [address]- 2266 Nov, [facility] [address] [id number] [place] [address]- 6339 Oct, [facility] [place] [facility] [address] [id number] [place] [address]- 2396 Oct, [facility] [place] [facility] [address] [id number] [place] [address]- 9662 Sep, [facility] [place] [facility] [address] [id number] [place] [address]- 6509 Sep, [facility] [place] [facility] [address] [id number] [place] [address]- 4478 Sep, [facility] [place] [facility] [address] [id number] [place] [address]- 1355 Sep, [facility] [place] [facility] [address] [id number] [place] [address]- 1424 Sep, [facility] [place] [facility] [address] [id number] [place] [address]- 5299 Sep, [facility] [place] [facility] [address] [id number] [place] [address]- 5110 Sep, [facility] [place] [facility] [address] [id number] [place] [address]- 1688 Sep, [facility] [place] [facility] [address] [id number] [place] [address]- 2386 Aug, [facility] [place] [facility] [address] [id number] [address]- 7017 Aug, [facility] [place] [facility] [address] [id number] [place] [address]- 3857 Aug, [facility] [place] [facility] [address] [id number] [place] [address]- 4426 Aug, [facility] [place] [facility] [address] [id number] [place] [address]- 3573 Aug, [facility] [place] [facility] [address] [id number] [place] [address] 2546 Aug, [facility] [place] [facility] [address] [id number] [place] [address]- 9699 Aug, [facility] [place] [facility] [address] [id number] [place] [address]- 2712 Jul, [facility] [place] [facility] [address] [id number] [place] [address]- 3929 Jul, [facility] [place] [facility] [address] [id number] [place] [address]- 0216 Jul, [facility] [place] [facility] [address] [id number] [place] [address]- 9310 Jul, [facility] [place] [facility] [address] [id number] [place] [address]- 8983 Jul, [facility] [place] [facility] [address] [id number] [place] [address]- 2428 Jul, [facility] [place] [facility] [address] [id number] [place] [address]- 5874 Jul, [facility] [place] [facility] [address] [id number] [place] [address]- 0899 18 Jun, 2012 [facility] [place] [facility] [address] [id number] [place] [address] 2548 Jun, [facility] [place] [facility] [address] [id number] [place] [address]- 2544 05 Jun, 2012 [facility] [place] [facility] [address] [id number] [place] [address]- 2545 May, [facility] [place] [facility] [address] [id number] [place] [address]- 5357 May, [facility] [place] [facility] [address] [id number] [place] [address]- 2546 Apr, [facility] [place] [facility] [address] [facility] [id number] [place] [address]- 2546 Apr, [facility] [place] [facility] [address] [id number] [place] [address]- 4203 Mar, [facility] [address] [id number] [place] [address]- 6544 February, [facility] [place] [facility] [address] [id number] [place] [address]- 4436 February, [facility] [address] [id number] [place] [address]- 6776 February, [facility] [address] [id number] [place] [address]- 8097 February, [facility] [address] [id number] [place] [address]- 9081 February, [facility] [address] [id number] [place] [address]- 4846 February, [facility] [address] [id number] [place] [address]- 2079 February, [facility] [address] [id number] [place] [address]- 4167 Jan, [facility] [place] [facility] [address] [id number] [place] [address]- 7898 Dec, [facility] [place] [facility] [address] [id number] [place] [address]- 7188 Dec, [facility] [place] [facility] [address] [id number] [place] [address]- 7791 Oct, [facility] [place] [facility] [address] [id number] [place] [address]- 6341 Oct, [facility] [place] [facility] [address] [id number] [place] [address]- 8785 Oct, [facility] [place] [facility] [address] [id number] [place] [address]- 5349 Oct, [facility] [place] [facility] [address] [id number] [place] [address]- 8227 17 Oct, 2011 [facility] [address] [id number] [place] [address]- 0404 Oct, [facility] [place] [facility] [address] [id number] [place] [address]- 9866 Oct, [facility] [address] [id number] [place] [address]- 2716 Oct, [facility] [place] [facility] [address] [id number] [place] [address]- 1926 Oct, [facility] [address] [id number] [place] [address]- 0952 30 Sep, 2011 [facility] [place] [facility] [address] [id number] [place] [address]- 8571 Sep, [facility] [place] [facility] [address] [id number] [place] [address]- 2853 Sep, [facility] [place] [facility] [address] [id number] [place] [address]- 9718 Sep, [facility] [place] [facility] [address] [id number] [place] [address]- 1597 Sep, [facility] [place] [facility] [address] [id number] [place] [address]- 1597 Sep, [facility] [place] [facility] [address] [id number] [place] [address]- 8615 Sep, [facility] [place] [facility] [address] [id number], [place] [address]- 4726 19 Sep, 2011 [facility] [place] [facility] [address] [id number] [place] [address]- 4353 13 Sep, 2011 [facility] [place] [facility] [address] [id number] [place] [address]- 7585 05 Sep, 2011 [facility] [place] [facility] [address] [id number] [place] [address]- 9340 15 Aug, 2011 [facility] [place] [facility] [id number] [address] 1917 Jul, [facility] [address]- 5771 Sep, [facility] [address], [place] [address]- 3871 Aug, [facility] [id number] [address]- 4369 Aug, [facility] [address], [place] [address]- 2062 Aug, [facility] [address] 9945 Aug, [facility] [address] [place] [address]- 8429 Jul, [facility] [address] [address]- 8891 Jul, [facility] [id number] [address]- 2229 Jul, IMMUNIZATIONS No Known Immunizations SOCIAL HISTORY Never Assessed REASON FOR VISIT f/u Tyesha PLAN OF CARE Activity Details Follow Up 4 Weeks Reason: VITAL SIGNS Height 58.5 in 2018-08-29 Weight 189.7 lbs 2018-08-29 Heart Rate 64 bpm 2018-08-29 Respiratory Rate 20 2018-08-29 BMI 38.97 kg/m2 2018-08-29 Blood pressure systolic 132 mmHg 2018-08-29 Blood pressure diastolic 74 mmHg 2018-08-29 MEDICATIONS Medication Instructions Dosage Frequency Start Date End Date Duration Status Aspirin 81 81 MG Orally 1 and 3 1 tablet Active Pantoprazole Sodium 40 mg Orally Once a day 1 tablet 24h 30 days Active Spiriva HandiHaler 18 MCG Inhalation Once a day 1 capsule 24h Active Rosuvastatin Calcium 10 mg Orally Once a day 1 tablet 24h 90 days Active Spiriva HandiHaler 18 MCG Inhalation Once a day 1 capsule 24h 18 Jul, 2018 30 days Active Gabapentin 600 MG Orally 3 times a day 1 tablet 8h 11 Jun, 2013 90 days Active Potassium Chloride ER 20 meq Orally Once a day 1 tablet with food 24h 90 days Active Diclofenac Sodium 75 MG Orally Twice a day 1 tablet with food or milk 12h Jul, 2 Oct, 2018 30 day(s) Active Oxycodone-Acetaminophen 10-325 MG Orally 3 times a day 1 tablet as needed 8h Aug, 28 days Active MiraLax - Orally Once a day one capful 24h 18 Jul, 2018 30 days Active Multi For Her 50+ - Orally Once a day 1 tablet 24h Active Trintellix 20 MG Orally Once a day 1 tablet 24h 30 day(s) Active Quetiapine Fumarate 50 mg Orally at bedtime 1 tablet Active Breo Ellipta 200-25 MCG/INH Inhalation Once a day 1 puff 24h Active Furosemide 40 mg Orally Once a day 1 tablet 24h 90 days Active MS Contin 30 MG Orally every 12 hrs 1 tablet 12h Aug, 28 days Active Zetia 10 mg Orally Once a day 1 tablet 24h 90 days Active Colace 100 mg Orally Once a day 2 capsule as needed 24h Active Duloxetine HCl 60 mg Orally Twice a day 1 capsule 12h Active Cyclobenzaprine HCl 5 mg Orally 2 times a day 1 tablet as needed 12h Apr 30 days Active Vitamin B Complex-C - Orally daily 150 mg 24h Active BusPIRone HCl 10 mg Orally Twice a day 1 tablet 12h Aug, 30 days Active RESULTS No Results PROCEDURES Procedure Date Ordered Result Body Site [facility] VISIT ESTABLISHED PATIENT Aug 29, 2018 INSTRUCTIONS MEDICATIONS ADMINISTERED No Known Medications [...]
--- OUTSIDE RECORDS SUMMARY | 2018-11-21 09:27 | XMS REPORT ---
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 Name Role Phone NEERU CANO Unavailable PROBLEMS Type Condition ICD9-CM Code MIA00-GU Code Onset Dates Condition Status SNOMED Code Problem Atrophic gastritis without hemorrhage K29.40 Active 17165372 Problem Other chronic pain G89.29 Active 71183284 Problem Chronic obstructive pulmonary disease, unspecified COPD type J44.9 Active 90091478 Problem Stuttering F80.81 Active 08526029 Problem Severe episode of recurrent major depressive disorder, without psychotic features F33.2 Active 90181643 Problem Hammer toe of right foot M20.41 Active 880508820 Problem Moderate episode of recurrent major depressive disorder F33.1 Active 800576466 Problem Anxiety F41.9 Active 11786861 Problem Major depressive disorder, recurrent, in full remission F33.42 Active 33544186 Problem Chronic pain due to trauma G89.21 Active 930785468 Problem Gastroesophageal reflux disease, esophagitis presence not specified K21.9 Active 735422215 Problem Esophageal dysphagia R13.10 Active 51916749 Problem History of anemia Z86.2 Active 100118235 Problem Lumbar radiculopathy M54.16 Active 027153167 Problem Acute allergic rhinitis, unspecified seasonality, unspecified trigger J30.9 Active 22448913 ALLERGIES No Information ENCOUNTERS Encounter Location Date Diagnosis [facility] [address] [facility] [id number] [address] Oct, [facility] [address], [place] [address] Sep, [facility] [id number], [place] [address] Aug, Anxiety F41.9 ; Severe episode of recurrent major depressive disorder, without psychotic features F33.2 and Gastroesophageal reflux disease, esophagitis presence not specified K21.9 [facility] [id number] [place] [address]40- 1758 Aug, [facility] [address] [id number]- [address] Aug, Severe episode of recurrent major depressive disorder, without psychotic features F33.2 and Anxiety F41.9 [place] [address] [address] Aug, Chronic obstructive pulmonary disease, unspecified COPD type J44.9 ; Lumbar radiculopathy M54.16 and Stuttering F80.81 [facility] [address] [address] Jul, Chronic pain due to trauma G89.21 and Atrophic gastritis without hemorrhage K29.40 [facility] [address] [address] Jul, Right hip pain M25.551 ; Urinary tract infection without hematuria, site unspecified N39.0 and Right sided abdominal pain R10.9 [facility] [address] [address]- [address] Jul, [facility] [id number] [place] [address]- 4624 Jul, [facility] [address] 94163- 0791 Jul, [facility] [address] 19746- 7547 Jul, Gastroesophageal reflux disease, esophagitis presence not specified K21.9 [facility] [address] 406[address]- 9[address] Jul, [facility] [address] [address]- [address] Jul, Severe episode of recurrent major depressive disorder, without psychotic features F33.2 and Anxiety F41.9 [place] [id number] [place] [address] 50042- 5265 10 Jul, 2018 Lumbar radiculopathy M54.16 [place] [id number] [place] [address] 94055- 0641 Jul, [place] [id number] [place] [address] 41034- 2167 Jul, Chronic pain due to trauma G89.21 and Atrophic gastritis without hemorrhage K29.40 [place] [id number] [place] [address] 38919- 3024 04 Jul, 2018 Medicare annual wellness visit, initial Z00.00 ; Chronic obstructive pulmonary disease, unspecified COPD type J44.9 ; Encounter for immunization Z23 ; Other chronic pain G89.29 ; Lumbar radiculopathy M54.16 ; Gastroesophageal reflux disease, esophagitis presence not specified K21.9 ; Routine adult health maintenance Z00.00 ; Major depressive disorder, recurrent, in full remission F33.42 and Breast cancer screening Z12.31 [place] [id number] [place] [address] 42334- 1820 Jul, [place] [address] 6[address]- [address] Jun, Chronic obstructive pulmonary disease, unspecified COPD type J44.9 ; Lumbar radiculopathy M54.16 ; Moderate episode of recurrent major depressive disorder F33.1 and Hammer toe of right foot M20.41 [place] [id number] [place] [address] 21451- 0919 Jun, [place] [id number] [place] [address] 17992- 1667 17 Jun, 2018 [facility] [id number] [place] [address] 52005 -4493 13 Jun, 2018 Acute respiratory distress R06.03 [place] [id number] [place] [address] 79498- 9356 05 Jun, 2018 Chronic pain due to trauma G89.21 and Atrophic gastritis without hemorrhage K29.40 [place] [id number] [place] [address] 57579- 8219 May, Atrophic gastritis without hemorrhage K29.40 and Chronic pain due to trauma G89.21 [place] [address] 57685- 8322 13 Apr, 2018 Strain of neck muscle, subsequent encounter S16.1XXD and Lumbar radiculopathy M54.16 [place] [address] 12828- 6352 Apr, Atrophic gastritis without hemorrhage K29.40 and Chronic pain due to trauma G89.21 [place] [address] 33929- 0578 14 Mar, 2018 Chronic pain due to trauma G89.21 ; Lumbar radiculopathy M54.16 ; Dysthymia F34.1 ; Pain in right shoulder M25.511 ; Pain in left shoulder M25.512 ; Other chronic pain G89.29 and Chronic obstructive pulmonary disease, unspecified COPD type J44.9 [place] [address] 46102- 4188 14 Mar, 2018 Chronic pain due to trauma G89.21 and Atrophic gastritis without hemorrhage K29.40 [place] [id number] [place] [address] 99755- 6353 February, Chronic pain due to trauma G89.21 and Atrophic gastritis without hemorrhage K29.40 [place] [id number] [place] [address] 94855- 4849 Jan, Chronic pain due to trauma G89.21 and Atrophic gastritis without hemorrhage K29.40 [place] [address] 97044- 7227 Jan, Atrophic gastritis without hemorrhage K29.40 [place] [address] 98998- 2554 Dec, Atrophic gastritis without hemorrhage K29.40 and Chronic pain due to trauma G89.21 [facility] [id number] [place] [address] 56715- 4443 Dec, Chronic pain due to trauma G89.21 and Lumbar radiculopathy M54.16 [place] [id number] [place] [address] 82855- 2674 Dec, Lumbar radiculopathy M54.16 [facility] [address] 01212- 7281 Dec, [facility] [address] 64705- 7815 Nov, Chronic pain due to trauma G89.21 [place] [id number] [place] [address] 69071- 8670 Nov, BMI 40.0-44.9, adult Z68.41 ; Lumbar radiculopathy M54.16 and Dysthymia F34.1 [facility] [id number] [place] [address] 20023- 0249 Nov, [facility] [address] 83271- 1104 Nov, [facility] [id number] [place] [address] 73435- 7693 Oct, [facility] [address] 35331- 8867 Oct, Chronic pain due to trauma G89.21 ; Gastroesophageal reflux disease, esophagitis presence not specified K21.9 ; Dysthymia F34.1 ; Lumbar radiculopathy M54.16 ; Esophageal dysphagia R13.10 and BMI 40.0-44.9, adult Z68.41 [facility] [id number] [place] [address] 09965 -0402 05 Sep, 2017 History of anemia Z86.2 and Acute allergic rhinitis, unspecified seasonality, unspecified trigger J30.9 [place] [address] [id number] [place] [address]- 5426 Sep, [facility] [place] [facility] [address] [id number] [place] [address]- 3972 Jul, [facility] [place] [facility] [address] [id number] [place] [address]- 6611 14 Jan, 2015 [facility] [place] [facility] [address] [id number] [place] [address]- 0525 Jan, [facility] [place] [facility] [address] [id number] [place] [address]- 2373 Nov, [facility] [place] [facility] [address] [id number] [place] [address]- 9862 Nov, [facility] [place] [facility] [address] [id number] [place] [address]- 2304 Oct, [facility] [place] [facility] [address] [id number] [place] [address]- 6536 Aug, [facility] [place] [facility] [address] [id number] [place] [address]- 9088 Aug, [facility] [place] [facility] [address] [id number] [place] [address]- 1222 Jul, [facility] [place] [facility] [address] [id number] [place] [address]- 5148 Jul, [facility] [place] [facility] [address] [id number] [place] [address]- 9005 Jul, [facility] [place] [facility] [address] [id number] [place] [address]- 7867 Jul, [facility] [place] [facility] [address] [id number] [place] [address]- 7228 Jul, [facility] [place] [facility] [address] [id number] [place] [address]- 3565 Jun, [facility] [place] [facility] [address] [id number] [place] [address]- 5246 Jun, [facility] [place] [facility] [address] [id number] [place] [address]- 1210 Jun, [facility] [place] [facility] [address] [id number] [place] [address]- 7216 May, [facility] [place] [facility] [address] [id number] [place] [address]- 2002 May, [facility] [place] [facility] [address] [id number] [place] [address]- 6649 May, [facility] [place] [facility] [address] [id number] [place] [address]- 2559 May, [facility] [place] [facility] [address] [id number] [place] [address]- 0047 Apr, [facility] [place] [facility] [address] [id number] [place] [address]- 5470 Apr, [facility] [place] [facility] [address] [id number] [place] [address]- 0720 Apr, [facility] [place] [facility] [address] [id number] [place] [address]- 0248 Apr, [facility] [place] [facility] [address] [id number] [place] [address]- 6793 Mar, [facility] [place] [facility] [address] [id number] [place] [address]- 1012 Mar, [facility] [place] [facility] [address] [id number] [place] [address]- 5975 Mar, [facility] [place] [facility] [address] [id number] [place] [address]- 2879 February, [facility] [place] [facility] [address] [id number] [place] [address]- 4900 February, [facility] [place] [facility] [address] [id number] [place] [address]- 6366 February, [facility] [place] [facility] [address] [id number] [place] [address]- 7956 February, [facility] [address] [id number] [place] [address]- 1171 February, [facility] [address] [id number] [place] [address]- 3696 February, [facility] [address] [id number] [place] [address]- 3006 Jan, [facility] [address] [id number] [place] [address]- 9364 Jan, [facility] [address] [id number] [place] [address]- 7472 Dec, [facility] [address] [id number] [place] [address]- 4304 Dec, [facility] [address] [id number] [place] [address]- 6658 Dec, [facility] [address] [id number] [place] [address]- 3357 Dec, [facility] [address] [id number] [place] [address]- 5498 Dec, [facility] [address] [id number] [place] [address]- 1233 Nov, [facility] [address] [id number] [place] [address]- 2286 Nov, [facility] [address] [id number] [place] [address]- 4828 Nov, [facility] [address] [id number] [place] [address]- 1926 Nov, [facility] [address] [id number] [place] [address]- 0896 04 Nov, 2012 [facility] [address] [id number] [place] [address]- 5923 Oct, [facility] [place] [facility] [address] [id number] [place] [address]- 9239 Oct, [facility] [place] [facility] [address] [id number] [place] [address]- 5478 Sep, [facility] [place] [facility] [address] [id number] [place] [address]- 2409 Sep, [facility] [place] [facility] [address] [id number] [place] [address]- 4944 Sep, [facility] [place] [facility] [address] [id number] [place] [address]- 3304 Sep, [facility] [place] [facility] [address] [id number] [place] [address]- 9321 Sep, [facility] [place] [facility] [address] [id number] [place] [address]- 3773 Sep, [facility] [place] [facility] [address] [id number] [place] [address]- 9809 Sep, [facility] [place] [facility] [address] [id number] [place] [address]- 2510 Sep, [facility] [place] [facility] [address] [id number] [place] [address]- 8960 Aug, [facility] [place] [facility] [address] [id number] [place] [address]- 0992 Aug, [facility] [place] [facility] [address] [id number], [place] [address]- 7479 Aug, [facility] [place] [facility] [address] [id number] [place] [address]- 9853 Aug, [facility] [place] [facility] [address] [id number] [place] [address]- 4019 Aug, [facility] [place] [facility] [address] [id number] [place] [address]- 7262 Aug, [facility] [place] [facility] [address] [id number] [place] [address]- 8337 Aug, [facility] [place] [facility] [address] [id number] [place] [address]- 3050 Jul, [facility] [place] [facility] [address] [id number] [place] [address]- 8414 Jul, [facility] [place] [facility] [address] [id number] [place] [address]- 9105 Jul, [facility] [place] [facility] [address] [id number] [place] [address]- 8871 Jul, [facility] [place] [facility] [address] [id number] [place] [address]- 7450 Jul, [facility] [place] [facility] [address] [id number] [place] [address]- 5219 Jul, [facility] [place] [facility] [address] [facility] [id number] [place] [address]- 5359 Jul, [facility] [place] [facility] [address] [id number] [place] [address]- 0269 18 Jun, 2012 [facility] [place] [facility] [address] [id number] [place] [address]- 5094 06 Jun, 2012 [facility] [place] [facility] [address] [facility] [id number] [place] [address]- 9560 05 Jun, 2012 [facility] [place] [facility] [address] [id number] [place] [address]- 1580 15 May, 2012 [facility] [place] [facility] [address] [id number] [place] [address]- 6894 May, [facility] [place] [facility] [address] [id number] [place] [address]- 1081 Apr, [facility] [place] [facility] [address] [facility] [id number] [place] [address]- 2546 Apr, [facility] [place] [facility] [address] [id number] [place] [address]- 0085 Mar, [facility] [place] [facility] [address] [id number] [place] [address]- 6857 February, [facility] [address] [id number] [place] [address]- 4835 February, [facility] [address] [id number] [place] [address]- 6606 February, [facility] [address] [id number] [place] [address]- 0116 February, [facility] [address] [id number] [place] [address]- 9693 February, [facility] [address] [id number] [place] [address]- 5416 February, [facility] [address] [id number] [place] [address]- 3056 February, [facility] [address] [id number] [place] [address]- 2612 Jan, [facility] [address] [id number] [place] [address]- 5296 Dec, [facility] [address] [id number] [place] [address]- 8948 Dec, [facility] [address] [id number] [place] [address]- 2846 Oct, [facility] [address] [id number] [place] [address]- 5424 Oct, [facility] [address] [id number] [place] [address]- 7081 Oct, [facility] [place] [facility] [address] [id number] [place] [address]- 2627 Oct, [facility] [address] [id number] [place] [address]- 4266 Oct, [facility] [address] [id number] [place] [address]- 2771 Oct, [facility] [address] [id number] [place] [address]- 5955 Oct, [facility] [place] [facility] [address] [id number] [place] [address]- 1096 Oct, [facility] [place] [facility] [address] [id number] [place] [address]- 1212 Oct, [facility] [place] [facility] [address] [id number] [place] [address]- 4974 30 Sep, 2011 [facility] [place] [facility] [address] [id number] [place] [address]- 0535 Sep, [facility] [place] [facility] [address] [id number] [place] [address]- 8828 Sep, [facility] [place] [facility] [address] [id number] [place] [address]- 6166 Sep, [facility] [place] [facility] [address] [id number] [place] [address]- 3397 Sep, [facility] [place] [facility] [address] [id number] [place] [address]- 3848 Sep, [facility] [place] [facility] [address] [id number] [place] [address]- 2158 Sep, [facility] [place] [facility] [address] [id number] [place] [address]- 6375 Sep, [facility] [place] [facility] [address] [id number] [place] [address]- 6660 13 Sep, 2011 [facility] [place] [facility] [address] [id number] [place] [address] 05 Sep, 2011 [facility] [place] [facility] [address] [id number] [place] [address]- 0510 15 Aug, 2011 [facility] [place] [facility] [address] [id number] [place] [address]89 18 Jul, 2011 [facility] [place] [facility] [id number] [address] Sep, [facility] [address] [id number] [address]- 4779 Aug, [facility] [address] [address]- 8132 Aug, [facility] [address] [address]- 0881 Aug, [facility] [address], [place] [address]- 2831 Aug, [facility] [address] [address]- 0999 Jul, [facility] [address] [place] [address]- 9614 Jul, [facility] [address], [place] [address]- 8454 Jul, IMMUNIZATIONS No Known Immunizations SOCIAL HISTORY Never Assessed REASON FOR VISIT PillPack scripts PLAN OF CARE VITAL SIGNS MEDICATIONS Medication Instructions Dosage Frequency Start Date End Date Duration Status Duloxetine HCl 60 mg Orally Twice a day 1 capsule 12h 30 days Active Trintellix 20 MG Orally Once a day 1 tablet 24h 30 day(s) Active BusPIRone HCl 10 mg Orally Twice a day 1 tablet 12Aug, 30 days Active Breo Ellipta 200-25 MCG/INH Inhalation Once a day 1 puff 24h 30 days Active Cyclobenzaprine HCl 5 mg Orally 2 times a day 1 tablet as needed 12apr 30 days Active Pantoprazole Sodium 40 mg Orally Once a day 1 tablet 24h 30 days Active Spiriva HandiHaler 18 MCG Inhalation Once a day 1 capsule 24h Jul, 30 days Active Diclofenac Sodium 75 MG Orally Twice a day 1 tablet with food or milk 12h Jul, 30 day(s) Active RESULTS No Results PROCEDURES No Known [...]
--- OUTSIDE RECORDS SUMMARY | 2018-11-21 09:28 | XMS REPORT ---
Author Author SNEHAL KUHN [facility] Address [address] [place] [address] Phone Unavailable Care Team Providers Care Mounter Clarinets Name Role Phone SNEAHL KUHN Unavailable Unavailable PROBLEMS Type Condition ICD9-CM Code [id number] Code Onset Dates Condition Status SNOMED Code Problem Acute allergic rhinitis, unspecified seasonality, unspecified trigger J30.9 Active 91319653 Problem Chronic obstructive pulmonary disease, unspecified COPD type J44.9 Active 97283637 Problem Atrophic gastritis without hemorrhage K29.40 Active 33531028 Problem Anxiety F41.9 Active 07311644 Problem Severe episode of recurrent major depressive disorder, without psychotic features F33.2 Active 48163460 Problem Moderate episode of recurrent major depressive disorder F33.1 Active 211225107 Problem Other chronic pain G89.29 Active 22355270 Problem Major depressive disorder, recurrent, in full remission F33.42 Active 77436647 Problem Hammer toe of right foot M20.41 Active 435157326 Problem Lumbar radiculopathy M54.16 Active 109399033 Problem Chronic pain due to trauma G89.21 Active 940100608 Problem Gastroesophageal reflux disease, esophagitis presence not specified K21.9 Active 633395047 Problem Esophageal dysphagia R13.10 Active 27804520 Problem History of anemia Z86.2 Active 429022154 ALLERGIES Substance Reaction Event Type Date Status Penicillin G Sodium headache Drug Allergy Jul, Active Nalbuphine HCl headache Drug Allergy Jul, Active ENCOUNTERS Encounter Location Date Diagnosis [facility] [address] [facility] [id number], [place] [address] Oct, [facility] [address] [id number], [place] [address] Aug, [facility] [address] [id number], [place] [address] Aug, [facility] [id number] [place] [address]88 [address]41 Jul, Right hip pain M25.551 ; Urinary tract infection without hematuria, site unspecified N39.0 and Right sided abdominal pain R10.9 [place] [id number] [place] [address]11- 9423 Jul, [place] [id number] [place] [address] 52683- 1375 Jul, [place] [id number] [place] [address] 95977- 5740 Jul, [place] [address] [address]89- 9362 Jul, Gastroesophageal reflux disease, esophagitis presence not specified K21.9 [place] [id number] [place] [address] 04144- 7454 Jul, [place] [id number] [place] [address] 12393- 5868 Jul, Severe episode of recurrent major depressive disorder, without psychotic features F33.2 and Anxiety F41.9 [place] [id number] [place] [address] 28098- 4094 Jul, Lumbar radiculopathy M54.16 [place] [id number] [place] [address] 35825- 0998 Jul, [place] [id number] [place] [address] 04876- 7976 Jul, Chronic pain due to trauma G89.21 and Atrophic gastritis without hemorrhage K29.40 [place] [id number] [place] [address] 96897- 2091 Jul, Medicare annual wellness visit, initial Z00.00 ; Chronic obstructive pulmonary disease, unspecified COPD type J44.9 ; Encounter for immunization Z23 ; Other chronic pain G89.29 ; Lumbar radiculopathy M54.16 ; Gastroesophageal reflux disease, esophagitis presence not specified K21.9 ; Routine adult health maintenance Z00.00 ; Major depressive disorder, recurrent, in full remission F33.42 and Breast cancer screening Z12.31 [place] [address] [address]- 8613 02 Jul, 2018 [place] [id number] [place] [address] 67897- 6984 21 Jun, 2018 Chronic obstructive pulmonary disease, unspecified COPD type J44.9 ; Lumbar radiculopathy M54.16 ; Moderate episode of recurrent major depressive disorder F33.1 and Hammer toe of right foot M20.41 [place] [address] [address]21- 5954 20 Jun, 2018 [place] [address] 89486- 4567 17 Jun, 2018 [facility] [place] [address] 92671 -8819 13 Jun, 2018 Acute respiratory distress R06.03 [place] [address] 07141- 8657 05 Jun, 2018 Chronic pain due to trauma G89.21 and Atrophic gastritis without hemorrhage K29.40 [place] [address] 91816- 4972 08 May, 2018 Atrophic gastritis without hemorrhage K29.40 and Chronic pain due to trauma G89.21 [place] [address] 11811- 9812 13 Apr, 2018 Strain of neck muscle, subsequent encounter S16.1XXD and Lumbar radiculopathy M54.16 [place] [address] 66471- 6012 11 Apr, 2018 Atrophic gastritis without hemorrhage K29.40 and Chronic pain due to trauma G89.21 [place] [address] 28372- 2561 14 Mar, 2018 Chronic pain due to trauma G89.21 ; Lumbar radiculopathy M54.16 ; Dysthymia F34.1 ; Pain in right shoulder M25.511 ; Pain in left shoulder M25.512 ; Other chronic pain G89.29 and Chronic obstructive pulmonary disease, unspecified COPD type J44.9 [place] [address] 39682- 5091 Mar, Chronic pain due to trauma G89.21 and Atrophic gastritis without hemorrhage K29.40 [place] [address] 73152- 1079 February, Chronic pain due to trauma G89.21 and Atrophic gastritis without hemorrhage K29.40 [place] [address] [place]165[place]- 8044 Jan, Chronic pain due to trauma G89.21 and Atrophic gastritis without hemorrhage K29.40 [place] [address] 90121- 3916 Jan, Atrophic gastritis without hemorrhage K29.40 [place] [address] 70283- 6318 Dec, Atrophic gastritis without hemorrhage K29.40 and Chronic pain due to trauma G89.21 [place] [address] 43572- 4586 Dec, Chronic pain due to trauma G89.21 and Lumbar radiculopathy M54.16 [place] [address] 56721- 3572 Dec, Lumbar radiculopathy M54.16 [place] [address] 30520- 6602 Dec, [place] [address] 43556- 4927 Nov, Chronic pain due to trauma G89.21 [place] [address] 64880- 4992 Nov, BMI 40.0-44.9, adult Z68.41 ; Lumbar radiculopathy M54.16 and Dysthymia F34.1 [facility] [id number] [place] [address] 75087- 0666 Nov, [facility] [id number] [place] [address] 35145- 9783 Nov, [facility] [id number] [place] [address] 51258- 2738 Oct, [facility] [id number] [place] [address] 70053- 7787 Oct, Chronic pain due to trauma G89.21 ; Gastroesophageal reflux disease, esophagitis presence not specified K21.9 ; Dysthymia F34.1 ; Lumbar radiculopathy M54.16 ; Esophageal dysphagia R13.10 and BMI 40.0-44.9, adult Z68.41 [facility] [id number] [place] [address] 84955 -9350 05 Sep, 2017 History of anemia Z86.2 and Acute allergic rhinitis, unspecified seasonality, unspecified trigger J30.9 [facility] [id number] [place] [address] 12306- 7656 05 Sep, 2017 [facility] [id number] [place] [address] 75623- 9974 14 Jul, 2016 [facility] [id number] [place] [address] 21028- 1711 14 Jan, 2015 [facility] [id number] [place] [address] 16134- 5438 Jan, [facility] [id number] [place] [address] 47887- 5021 Nov, [facility] [id number] [place] [address] 66311- 7725 Nov, [facility] [id number] [place] [address] 14972- 7633 Oct, [facility] [address] [id number] [place] [address]- 1159 Aug, [facility] [place] [facility] [address] [id number] [place] [address]- 9814 Aug, [facility] [place] [facility] [address] [id number] [place] [address]- 7039 Jul, [facility] [place] [facility] [address] [id number] [place] [address]- 8582 Jul, [facility] [place] [facility] [address] [id number] [place] [address]- 5487 Jul, [facility] [place] [facility] [address] [id number] [place] [address]- 4718 Jul, [facility] [place] [facility] [address] [id number] [place] [address]- 4163 Jul, [facility] [place] [facility] [address] [id number] [place] [address]- 7807 Jun, [facility] [place] [facility] [address] [id number] [place] [address]- 0816 Jun, [facility] [place] [facility] [address] [id number] [place] [address]- 3228 Jun, [facility] [place] [facility] [address] [id number] [place] [address]- 2463 May, [facility] [place] [facility] [address] [id number] [place] [address]- 9648 May, [facility] [place] [facility] [address] [id number] [place] [address]- 0277 May, [facility] [place] [facility] [address] [id number] [place] [address]- 1973 May, [facility] [place] [facility] [address] [id number] [place] [address]- 1151 Apr, [facility] [place] [facility] [address] [id number] [place] [address]- 2546 Apr, [facility] [address] [id number] [place] [address]- 1719 Apr, [facility] [place] [facility] [address] [id number] [place] [address]- 2546 Apr, [facility] [place] [facility] [address] [id number] [place] [address] 2547 Mar, [facility] [place] [facility] [address] [id number] [place] [address]- 8891 Mar, [facility] [place] [facility] [address] [id number] [place] [address]- 4736 Mar, [facility] [place] [facility] [address] [id number] [place] [address]- 8025 February, [facility] [place] [facility] [address] [id number] [place] [address]- 9511 February, [facility] [place] [facility] [address] [id number] [place] [address]- 6928 February, [facility] [place] [facility] [address] [id number] [place] [address]- 9807 February, [facility] [place] [facility] [address] [id number] [place] [address]- 1466 February, [facility] [place] [facility] [address] [id number] [place] [address]- 8546 February, [facility] [place] [facility] [address] [id number] [place] [address] 2541 Jan, [facility] [place] [facility] [address] [id number] [place] [address] 2549 Jan, [facility] [place] [facility] [address] [id number] [place] [address] 2546 Dec, [facility] [place] [facility] [address] [id number] [place] [address]- 2546 Dec, [facility] [place] [facility] [address] [id number] [place] [address]- 4081 06 Dec, 2012 [facility] [address] [id number] [place] [address]- 7796 05 Dec, 2012 [facility] [place] [facility] [address] [id number] [place] [address]- 9126 Dec, [facility] [address] [id number] [place] [address]- 5416 Nov, [facility] [place] [facility] [address] [id number] [place] [address]- 0816 Nov, [facility] [place] [facility] [address] [id number] [place] [address]- 5116 Nov, [facility] [place] [facility] [address] [id number] [place] [address]- 3400 Nov, [facility] [place] [facility] [address] [id number] [place] [address]- 1958 04 Nov, 2012 [facility] [address] [id number] [place] [address]- 6887 Oct, [facility] [address] [id number] [place] [address]- 8248 Oct, [facility] [address] [id number] [place] [address]- 0491 Sep, [facility] [address] [id number] [place] [address] 2546 Sep, [facility] [place] [facility] [address] [id number] [place] [address] 2546 Sep, [facility] [place] [facility] [address] [id number] [place] [address] 2546 Sep, [facility] [place] [facility] [address] [id number] [place] [address] 2546 Sep, [facility] [place] [facility] [address] [id number] [place] [address]- 8316 Sep, [facility] [place] [facility] [address] [id number] [place] [address]- 4094 Sep, [facility] [place] [facility] [address] [id number] [address]995 Sep, [facility] [place] [facility] [address] [facility] [id number] [place] [address] Aug, [facility] [place] [facility] [address] [id number], [place] [address]- 4286 Aug, [facility] [place] [facility] [address] [id number] [place] [address]- 2457 Aug, [facility] [place] [facility] [address] [facility] [id number], [place] [address]- 5403 Aug, [facility] [place] [facility] [address] [facility] [id number] [place] [address]- 6699 Aug, [facility] [place] [facility] [address] [id number], [place] [address]- 8759 Aug, [facility] [place] [facility] [address] [facility] [id number], [place] [address]- 3073 Aug, [facility] [place] [facility] [address] [facility] [id number], [place] [address]- 3601 Jul, [facility] [place] [facility] [address] [facility] [id number], [place] [address]- 8525 Jul, [facility] [place] [facility] [address] [id number], [place] [address]- 9845 Jul, [facility] [place] [facility] [address] [id number], [place] [address]- 4353 Jul, [facility] [place] [facility] [address] [facility] [id number], [place] [address]- 3230 Jul, [facility] [place] [facility] [address] [facility] [id number], [place] [address]- 3578 Jul, [facility] [place] [facility] [address] [id number] [place] [address] 2546 Jul, [facility] [address] [id number] [place] [address]- 1576 Jun, [facility] [place] [facility] [address] [id number] [place] [address]- 2546 Jun, [facility] [address] [id number] [place] [address]- 2546 Jun, [facility] [place] [facility] [address] [id number] [place] [address]- 2546 May, [facility] [place] [facility] [address] [id number] [place] [address]- 2366 May, [facility] [place] [facility] [address] [id number] [place] [address]- 2546 Apr, [facility] [address] [id number] [place] [address]- 4846 Apr, [facility] [address] [id number] [place] [address]- 5319 Mar, [facility] [place] [facility] [address] [id number] [place] [address]- 4126 February, [facility] [address] [id number] [place] [address]- 6876 February, [facility] [place] [facility] [address] [id number] [place] [address]- 7686 February, [facility] [place] [facility] [address] [id number] [place] [address]- 2546 February, [facility] [place] [facility] [address] [id number] [place] [address]- 3256 February, [facility] [place] [facility] [address] [id number] [place] [address]- 2546 February, [facility] [place] [facility] [address] [id number] [place] [address]- 2166 February, [facility] [address] [id number] [place] [address]- 1762 Jan, [facility] [address] [id number] [place] [address]- 5380 Dec, [facility] [address] [id number] [place] [address]- 8518 Dec, [facility] [address] [id number] [place] [address]- 6365 Oct, [facility] [address] [id number] [place] [address]- 4058 Oct, [facility] [address] [id number] [place] [address]- 7690 Oct, [facility] [address] [id number] [place] [address]- 3986 Oct, [facility] [address] [id number] [place] [address]- 4560 Oct, [facility] [address] [id number] [place] [address]- 6837 Oct, [facility] [address] [id number] [place] [address]- 3891 Oct, [facility] [address] [id number] [place] [address]- 7620 Oct, [facility] [address] [id number] [place] [address]- 3221 Oct, [facility] [address] [id number] [place] [address]- 6607 Sep, [facility] [address] [id number] [place] [address]- 0896 Sep, [facility] [address] [id number] [place] [address]- 9076 Sep, [facility] [address] [id number], [place] [address]- 2905 Sep, [facility] [place] [facility] [address] [id number] [place] [address]- 8645 20 Sep, 2011 [facility] [place] [facility] [address] [id number] [place] [address]- 8186 19 Sep, 2011 [facility] [place] [facility] [address] [id number] [place] [address]- 5046 Sep, [facility] [place] [facility] [address] [id number] [place] [address]- 5531 19 Sep, 2011 [facility] [place] [facility] [address] [id number] [place] [address]- 9057 13 Sep, 2011 [facility] [place] [facility] [address] [id number] [place] [address]- 0503 05 Sep, 2011 [facility] [place] [facility] [address] [id number] [place] [address]- 5973 15 Aug, 2011 [facility] [place] [facility] [address] [id number] [place] [address]- 3015 18 Jul, 2011 [facility] [place] [facility] [address] [id number] [place] [address]- 1679 09 Sep, 2010 [facility] [place] [facility] [address] [id number] [place] [address]- 0204 15 Aug, 2010 [facility] [place] [facility] [address] [id number], [place] [address]- 0940 11 Aug, 2010 [facility] [place] [facility] [address] [id number], [place] [address]- 1903 11 Aug, 2010 [facility] [place] [facility] [address] [id number] [place] [address]- 6784 03 Aug, 2010 [facility] [place] [facility] [address] [id number] [place] [address]- 4991 29 Jul, 2010 [facility] [place] [facility] [address] [id number] [place] [address]- 0220 28 Jul, 2010 [facility] [place] [facility] [address] [facility] [id number] [place] [address]- 4596 Jul, IMMUNIZATIONS No Known Immunizations SOCIAL HISTORY Never Assessed REASON FOR VISIT right side/leg pain x3 weeks [employer] PLAN OF CARE Activity Details Follow Up To follow up with Dr. Ric chopra Reason: Pending Test CULTURE, URINE VITAL SIGNS Height 58.5 in 2018-08-15 Weight 186 lbs 2018-08-15 Temperature 97.9 degrees Fahrenheit 2018-08-15 Heart Rate 92 bpm 2018-08-15 Respiratory Rate 22 2018-08-15 BMI 38.21 kg/m2 2018-08-15 Blood pressure systolic 110 mmHg 2018-08-15 Blood pressure diastolic 70 mmHg 2018-08-15 MEDICATIONS Medication Instructions Dosage Frequency Start Date End Date Duration Status Oxycodone-Acetaminophen 10-325 MG Orally 3 times a day 1 tablet as needed 8h Jul, 28 days Active Vitamin B Complex-C - Orally daily 150 mg 24h Active Potassium Chloride ER 20 meq Orally Once a day 1 tablet with food 24h 90 days Active Rosuvastatin Calcium 10 mg Orally Once a day 1 tablet 24h 90 days Active Cipro 500 mg Orally every 12 hrs 1 tablet 12h Jul, 3 Aug, 2018 10 day(s) Active Diclofenac Sodium 75 MG Orally Twice a day 1 tablet with food or milk 12h Jul, Oct, 30 day(s) Active Lexapro 20 mg Orally Once a day 1/2 tablet 24h Active MiraLax - Orally Once a day one capful 24h 18 Jul, 2018 30 days Active Colace 100 mg Orally Once a day 2 capsule as needed 24h Active Multi For Her 50+ - Orally Once a day 1 tablet 24h Active Cyclobenzaprine HCl 5 mg Orally 2 times a day 1 tablet as needed 12h Apr 30 days Active Quetiapine Fumarate 50 mg Orally at bedtime 1 tablet Active Duloxetine HCl 60 mg Orally Twice a day 1 capsule 12h Active Mirtazapine 45 MG Orally Once a day 1 tablet at bedtime 24h 90 days Active Zetia 10 mg Orally Once a day 1 tablet 24h 90 days Active Aspirin 81 81 MG Orally 1 and 3 1 tablet Active Trintellix 10 MG Orally Once a day 1 tablet 24h 12 Jul, 2018 30 day(s) Active MS Contin 30 MG Orally every 12 hrs 1 tablet 12h Jul, 28 days Active Gabapentin 600 MG Orally 3 times a day 1 tablet 8h 11 Jun, 2013 90 days Active Spiriva HandiHaler 18 MCG Inhalation Once a day 1 capsule 24h Active Furosemide 40 mg Orally Once a day 1 tablet 24h 90 days Active Spiriva HandiHaler 18 MCG Inhalation Once a day 1 capsule 24h 18 Jul, 2018 30 days Active Pantoprazole Sodium 40 mg Orally Once a day 1 tablet 24h 30 days Active Breo Ellipta 200-25 MCG/INH Inhalation Once a day 1 puff 24h Active RESULTS Name Result Date Reference Range UA LONG DIP (IN HOUSE) 2018-08-15 Lot # [id number] Exp date 08/2018 Clarity cloudy Color yellow Odor yes GLU negative ROSITA negative KET negative SG 1.015 BLO Negative pH 5.5 Protein negative URO 1.0 NIT negative ASAD 1+ Lot # [id number] Exp date 09/2018 Xray : Hip, Right 2 views (IN HOUSE) 2018-08-15 Xray : Chest 2 View (IN HOUSE) 2018-08-15 PROCEDURES Procedure Date Ordered Result Body Site X-RAY EXAM CHEST 2 VIEWS Aug 15, 2018 X-RAY EXAM HIP UNI 2-3 VIEWS Aug 15, 2018 FQ VISIT ESTABLISHED PATIENT Aug 15, 2018 LAB NOT BILLED BY [facility] Aug 15, 2018 URINALYSIS, AUTO, W/O SCOPE Aug 15, 2018 INSTRUCTIONS MEDICATIONS ADMINISTERED No Known Medications [...]
--- OUTSIDE RECORDS SUMMARY | 2018-11-21 09:28 | XMS REPORT ---
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 Name Role Phone CORINNE SANTOS Unavailable PROBLEMS Type Condition ICD9-CM Code BFA12-PK Code Onset Dates Condition Status SNOMED Code Problem Atrophic gastritis without hemorrhage K29.40 Active 70478490 Problem Other chronic pain G89.29 Active 01559555 Problem Chronic obstructive pulmonary disease, unspecified COPD type J44.9 Active 56174148 Problem Stuttering F80.81 Active 32897490 Problem Severe episode of recurrent major depressive disorder, without psychotic features F33.2 Active 33533836 Problem Hammer toe of right foot M20.41 Active 458071632 Problem Moderate episode of recurrent major depressive disorder F33.1 Active 838175568 Problem Anxiety F41.9 Active 06148507 Problem Major depressive disorder, recurrent, in full remission F33.42 Active 67892526 Problem Chronic pain due to trauma G89.21 Active 837288934 Problem Gastroesophageal reflux disease, esophagitis presence not specified K21.9 Active 799044262 Problem Esophageal dysphagia R13.10 Active 24145008 Problem History of anemia Z86.2 Active 737327926 Problem Lumbar radiculopathy M54.16 Active 853239499 Problem Acute allergic rhinitis, unspecified seasonality, unspecified trigger J30.9 Active 08567870 ALLERGIES No Information ENCOUNTERS Encounter Location Date Diagnosis [facility] [place] [id number], [place] [address] Oct, [facility] [place] [id number] [place] [address]50- 3239 Sep, [facility] [place] [address], [place] [address] Aug, [facility] [place] [id number] [place] [address] 50091- 4903 Aug, Severe episode of recurrent major depressive disorder, without psychotic features F33.2 and Anxiety F41.9 [address] [address] Aug, Chronic obstructive pulmonary disease, unspecified COPD type J44.9 ; Lumbar radiculopathy M54.16 and Stuttering F80.81 [address] [address] 39[address]- 8341 Jul, Chronic pain due to trauma G89.21 and Atrophic gastritis without hemorrhage K29.40 [facility] [address] [address] Jul, Right hip pain M25.551 ; Urinary tract infection without hematuria, site unspecified N39.0 and Right sided abdominal pain R10.9 [address] [place] [address] 16070- 4356 Jul, [place] [id number] [place] [address] 77678- 9418 Jul, [address] [address] 99257- 9851 Jul, [address] [id number] [place] [address] 66950- 4479 Jul, Gastroesophageal reflux disease, esophagitis presence not specified K21.9 [facility] [place] [id number] [place] [address] 19842- 6028 Jul, [address] [id number] [place] [address] 65738- 4922 Jul, Severe episode of recurrent major depressive disorder, without psychotic features F33.2 and Anxiety F41.9 [facility] [place] [id number] [place] [address] 16528- 4962 Jul, Lumbar radiculopathy M54.16 [address] [address] 54553- 9119 Jul, [facility] [place] [id number] [place] [address] 93629- 1294 04 Jul, 2018 Chronic pain due to trauma G89.21 and Atrophic gastritis without hemorrhage K29.40 [facility] [place] [id number] [place] [address] 44619- 6773 04 Jul, 2018 Medicare annual wellness visit, initial Z00.00 ; Chronic obstructive pulmonary disease, unspecified COPD type J44.9 ; Encounter for immunization Z23 ; Other chronic pain G89.29 ; Lumbar radiculopathy M54.16 ; Gastroesophageal reflux disease, esophagitis presence not specified K21.9 ; Routine adult health maintenance Z00.00 ; Major depressive disorder, recurrent, in full remission F33.42 and Breast cancer screening Z12.31 [address] [address] 67346- 9676 02 Jul, 2018 [address] [address] 19439- 3616 21 Jun, 2018 Chronic obstructive pulmonary disease, unspecified COPD type J44.9 ; Lumbar radiculopathy M54.16 ; Moderate episode of recurrent major depressive disorder F33.1 and Hammer toe of right foot M20.41 [facility] [place] [id number] [place] [address] 18066- 8708 20 Jun, 2018 [facility] [place] [id number] [place] [address] 26301- 6489 17 Jun, 2018 [facility] [id number] [place] [address] 58464 -7184 13 Jun, 2018 Acute respiratory distress R06.03 [facility] [place] [address] 33860- 6448 05 Jun, 2018 Chronic pain due to trauma G89.21 and Atrophic gastritis without hemorrhage K29.40 [facility] [place] [id number] [place] [address] 42998- 7256 May, Atrophic gastritis without hemorrhage K29.40 and Chronic pain due to trauma G89.21 [address] [id number] [place] [address] 62279- 4081 13 Apr, 2018 Strain of neck muscle, subsequent encounter S16.1XXD and Lumbar radiculopathy M54.16 [address] [address] 33477- 0780 11 Apr, 2018 Atrophic gastritis without hemorrhage K29.40 and Chronic pain due to trauma G89.21 [address] [address] 11845- 7731 14 Mar, 2018 Chronic pain due to trauma G89.21 ; Lumbar radiculopathy M54.16 ; Dysthymia F34.1 ; Pain in right shoulder M25.511 ; Pain in left shoulder M25.512 ; Other chronic pain G89.29 and Chronic obstructive pulmonary disease, unspecified COPD type J44.9 [address] [address] 08631- 0158 14 Mar, 2018 Chronic pain due to trauma G89.21 and Atrophic gastritis without hemorrhage K29.40 [address] [address] 41138- 6464 February, Chronic pain due to trauma G89.21 and Atrophic gastritis without hemorrhage K29.40 [address] [id number] [place] [address] 20811- 8826 Jan, Chronic pain due to trauma G89.21 and Atrophic gastritis without hemorrhage K29.40 [place] [id number] [place] [address] 01074- 9575 Jan, Atrophic gastritis without hemorrhage K29.40 [address] [address] 10495- 4293 28 Dec, 2017 Atrophic gastritis without hemorrhage K29.40 and Chronic pain due to trauma G89.21 [address] [address] 68882- 8725 20 Dec, 2017 Chronic pain due to trauma G89.21 and Lumbar radiculopathy M54.16 [address] [id number] [place] [address] 28692- 0462 Dec, Lumbar radiculopathy M54.16 [address] [place] [address] 23049- 1634 Dec, [address] [address] 42581- 2832 Nov, Chronic pain due to trauma G89.21 [address] [address] 87690- 1163 Nov, BMI 40.0-44.9, adult Z68.41 ; Lumbar radiculopathy M54.16 and Dysthymia F34.1 [address] [id number] [place] [address] 89513- 6577 Nov, [place] [address] 81868- 6388 Nov, [place] [id number] [place] [address] 00187- 6794 Oct, [place] [address] 42840- 6254 Oct, Chronic pain due to trauma G89.21 ; Gastroesophageal reflux disease, esophagitis presence not specified K21.9 ; Dysthymia F34.1 ; Lumbar radiculopathy M54.16 ; Esophageal dysphagia R13.10 and BMI 40.0-44.9, adult Z68.41 [facility] [id number] [place] [address] 34819 -0476 Sep, History of anemia Z86.2 and Acute allergic rhinitis, unspecified seasonality, unspecified trigger J30.9 [facility] [place] [id number] [place] [address] 10297- 1105 05 Sep, 2017 [facility] [place] [id number] [place] [address] 07420- 0172 14 Jul, 2016 [facility] [place] [facility] [address] [id number] [place] [address]- 0584 14 Jan, 2015 [facility] [place] [facility] [address] [id number] [place] [address]- 3397 Jan, [facility] [place] [facility] [address] [id number] [place] [address]- 8833 2013 [facility] [place] [facility] [address] [id number] [place] [address]- 1029 Nov, [facility] [place] [facility] [address] [id number] [place] [address]- 5818 Oct, [facility] [place] [facility] [address] [id number] [place] [address]- 8293 Aug, [facility] [place] [facility] [address] [id number] [place] [address]- 3310 Aug, [facility] [place] [facility] [address] [id number] [place] [address]- 0450 Jul, [facility] [place] [facility] [address] [id number] [place] [address]- 1020 Jul, [facility] [place] [facility] [address] [id number] [place] [address]- 7759 Jul, [facility] [place] [facility] [address] [id number] [place] [address]- 4766 Jul, [facility] [place] [facility] [address] [id number] [place] [address]- 2148 Jul, [facility] [place] [facility] [address] [id number] [place] [address]- 6836 24 Jun, 2013 [facility] [place] [facility] [address] [id number] [place] [address]- 1043 16 Jun, 2013 [facility] [place] [facility] [address] [id number] [place] [address]- 5349 11 Jun, 2013 [facility] [place] [facility] [address] [id number] [place] [address]- 5509 May, [facility] [place] [facility] [address] [id number] [place] [address]- 1609 May, [facility] [place] [facility] [address] [id number] [place] [address]- 1659 May, [facility] [place] [facility] [address] [id number] [place] [address] 2549 May, [facility] [place] [facility] [address] [id number] [place] [address]- 7922 Apr, [facility] [place] [facility] [address] [id number] [place] [address]- 8075 Apr, [facility] [place] [facility] [address] [id number] [place] [address]- 3452 Apr, [facility] [place] [facility] [address] [id number] [place] [address]- 3908 Apr, [facility] [place] [facility] [address] [id number] [place] [address]- 8832 Mar, [facility] [place] [facility] [address] [id number] [place] [address]- 1463 Mar, [facility] [place] [facility] [address] [id number] [place] [address]- 2781 Mar, [facility] [place] [facility] [address] [id number] [place] [address]- 7723 February, [facility] [place] [facility] [address] [id number] [place] [address]- 9830 February, [facility] [place] [facility] [address] [id number] [place] [address]- 3143 February, [facility] [place] [facility] [address] [id number] [place] [address]- 5197 February, [facility] [place] [facility] [address] [id number] [place] [address]- 2546 February, [facility] [place] [facility] [address] [id number] [place] [address] 2546 February, [facility] [address] [id number] [place] [address]- 0436 Jan, [facility] [address] [id number] [place] [address] 2546 Jan, [facility] [address] [id number] [place] [address]- 5211 Dec, [facility] [address] [id number] [place] [address]- 2546 Dec, [facility] [address] [id number] [place] [address]- 6296 Dec, [facility] [address] [id number] [place] [address]- 2546 Dec, [facility] [address] [id number] [place] [address]- 5025 Dec, [facility] [address] [id number] [place] [address]- 4025 Nov, [facility] [address] [id number] [place] [address]- 3276 Nov, [facility] [address] [id number] [place] [address]- 8786 Nov, [facility] [address] [id number] [place] [address]- 2546 Nov, [facility] [address] [id number] [place] [address]- 2546 Nov, [facility] [address] [id number] [place] [address]- 2546 Oct, [facility] [address] [id number] [place] [address]- 2546 Oct, [facility] [address] [id number] [place] [address]- 9835 Sep, [facility] [place] [facility] [address] [id number] [place] [address]- 9714 Sep, [facility] [place] [facility] [address] [id number] [place] [address]- 7915 Sep, [facility] [place] [facility] [address] [id number] [place] [address]- 4514 Sep, [facility] [place] [facility] [address] [id number] [place] [address]- 7008 Sep, [facility] [place] [facility] [address] [id number] [place] [address]- 5476 Sep, [facility] [place] [facility] [address] [id number] [place] [address]- 5713 Sep, [facility] [place] [facility] [address] [id number] [place] [address]- 8788 Sep, [facility] [place] [facility] [address] [id number] [place] [address]- 9344 Aug, [facility] [place] [facility] [address] [id number] [place] [address]- 3859 Aug, [facility] [place] [facility] [address] [id number] [place] [address]- 2954 Aug, [facility] [place] [facility] [address] [id number], [place] [address]- 9003 Aug, [facility] [place] [facility] [address] [id number], [place] [address]- 8491 Aug, [facility] [place] [facility] [address] [id number] [place] [address]- 2179 Aug, [facility] [place] [facility] [address] [id number] [place] [address]- 1380 Aug, [facility] [place] [facility] [address] [facility] [id number] [place] [address]- 1455 Jul, [facility] [place] [facility] [address] [id number] [place] [address]- 5878 Jul, [facility] [place] [facility] [address] [id number] [place] [address]- 4208 Jul, [facility] [place] [facility] [address] [id number] [place] [address]- 9230 Jul, [facility] [place] [facility] [address] [id number] [place] [address]- 2098 Jul, [facility] [place] [facility] [address] [id number] [place] [address]- 9825 Jul, [facility] [place] [facility] [address] [id number] [place] [address]- 4720 Jul, [facility] [place] [facility] [address] [id number] [place] [address]- 9445 Jun, [facility] [place] [facility] [address] [id number] [place] [address]- 6294 Jun, [facility] [place] [facility] [address] [id number] [place] [address]- 4371 05 Jun, 2012 [facility] [place] [facility] [address] [id number] [place] [address]- 0900 May, [facility] [place] [facility] [address] [id number] [place] [address]- 8691 May, [facility] [place] [facility] [address] [id number] [place] [address]- 4112 Apr, [facility] [place] [facility] [address] [id number] [place] [address]- 2544 Apr, [facility] [place] [facility] [address] [id number] [place] [address]- 9259 Mar, [facility] [place] [facility] [address] [id number] [place] [address]- 8706 February, [facility] [place] [facility] [address] [id number] [place] [address]- 8882 February, [facility] [place] [facility] [address] [id number] [place] [address]- 5945 February, [facility] [address] [id number] [place] [address]- 1445 February, [facility] [place] [facility] [address] [id number] [place] [address]- 3766 February, [facility] [address] [id number] [place] [address]- 7236 February, [facility] [address] [id number] [place] [address]- 5318 February, [facility] [address] [id number] [place] [address]- 3017 Jan, [facility] [address] [id number] [place] [address]- 4868 Dec, [facility] [address] [id number] [place] [address]- 7777 Dec, [facility] [address] [id number] [place] [address]- 7095 Oct, [facility] [address] [id number] [place] [address]- 3839 Oct, [facility] [place] [facility] [address] [id number] [place] [address]- 2110 Oct, [facility] [place] [facility] [address] [id number] [place] [address]- 7170 Oct, [facility] [place] [facility] [address] [id number] [place] [address]- 1488 Oct, [facility] [place] [facility] [address] [id number] [place] [address]- 3556 Oct, [facility] [place] [facility] [address] [id number] [place] [address]- 2096 Oct, [facility] [place] [facility] [address] [id number] [place] [address]- 9756 Oct, [facility] [address] [id number] [place] [address]- 6115 Oct, [facility] [address] [id number] [place] [address]- 0107 30 Sep, 2011 [facility] [address] [id number] [place] [address]- 9296 Sep, [facility] [place] [facility] [address] [id number] [place] [address]- 4438 Sep, [facility] [address] [id number] [place] [address]- 5426 Sep, [facility] [address] [id number] [place] [address]- 5640 Sep, [facility] [address] [id number] [place] [address]- 2858 Sep, [facility] [place] [facility] [address] [id number] [place] [address]- 1055 Sep, [facility] [address] [id number] [place] [address]- 1387 Sep, [facility] [place] [facility] [address] [id number] [place] [address]- 4589 Sep, [facility] [place] [facility] [address] [id number], [place] [address]- 9690 05 Sep, 2011 [facility] [place] [facility] [address] [id number], [place] [address]- 5198 15 Aug, 2011 [facility] [place] [facility] [address] [id number] [place] [address]- 3427 18 Jul, 2011 [facility] [place] [facility] [address] [id number] [place] [address]- 5337 09 Sep, 2010 [facility] [place] [facility] [address] [id number] [place] [address]- 0266 15 Aug, 2010 [facility] [place] [facility] [address] [facility] [id number] [place] [address] Aug, [facility] [place] [id number] [address]- 7342 Aug, [facility] [id number] [address] 9413 Aug, [facility] [address] [facility] [id number], [place] [address] Jul, [facility], [place] [address] [id number], [place] [address] Jul, [facility], [place] [address] [id number], [place] [address] Jul, IMMUNIZATIONS No Known Immunizations SOCIAL HISTORY Never Assessed REASON FOR VISIT PLAN OF CARE VITAL SIGNS MEDICATIONS Unknown [...]
--- OUTSIDE RECORDS SUMMARY | 2018-11-21 09:28 | XMS REPORT ---
Author Author NEERU CANO Organization [facility] [place] Address [address] [place] [address] Care Team Providers Care Aix System Administrator Name Role Phone NEERU CANO Unavailable PROBLEMS Type Condition ICD9-CM Code SMC94-JJ Code Onset Dates Condition Status SNOMED Code Problem Acute allergic rhinitis, unspecified seasonality, unspecified trigger J30.9 Active 08146289 Problem Chronic obstructive pulmonary disease, unspecified COPD type J44.9 Active 38812111 Problem Atrophic gastritis without hemorrhage K29.40 Active 28347407 Problem Anxiety F41.9 Active 37986167 Problem Severe episode of recurrent major depressive disorder, without psychotic features F33.2 Active 64208031 Problem Moderate episode of recurrent major depressive disorder F33.1 Active 921445339 Problem Other chronic pain G89.29 Active 33149141 Problem Major depressive disorder, recurrent, in full remission F33.42 Active 17212872 Problem Hammer toe of right foot M20.41 Active 397597662 Problem Lumbar radiculopathy M54.16 Active 522439307 Problem Chronic pain due to trauma G89.21 Active 820336751 Problem Gastroesophageal reflux disease, esophagitis presence not specified K21.9 Active 439377642 Problem Esophageal dysphagia R13.10 Active 10899305 Problem History of anemia Z86.2 Active [id number] ALLERGIES No Information ENCOUNTERS Encounter Location Date Diagnosis [facility] [place] [address] [facility] [id number] [address] Oct, [facility] [place] [id number] [place] [address]- [address]857 Aug, [facility] [place] [address] [address] Aug, [facility] [place] [address] [id number] [address] Jul, Chronic pain due to trauma G89.21 and Atrophic gastritis without hemorrhage K29.40 [facility] [id number] [place] [address] -[address]18 Jul, Right hip pain M25.551 ; Urinary tract infection without hematuria, site unspecified N39.0 and Right sided abdominal pain R10.9 [facility] [place] [id number] [place] [address] 29852- 6868 Jul, [facility] [place] [address] [address] Jul, [facility] [place] [address] [address]- [address]65 Jul, [facility] [place] [address] [address]- [address] Jul, Gastroesophageal reflux disease, esophagitis presence not specified K21.9 [facility] [place] [address] [address]- 47[address] Jul, [place] [address] [address]- [address] Jul, Severe episode of recurrent major depressive disorder, without psychotic features F33.2 and Anxiety F41.9 [facility] [place] [id number] [place] [address] 26302- 1395 Jul, Lumbar radiculopathy M54.16 [facility] [place] [address] [address]- 1631 Jul, [place] [address] [address]- [address] Jul, Chronic pain due to trauma G89.21 and Atrophic gastritis without hemorrhage K29.40 [facility] [place] [id number] [place] [address]31- 4995 Jul, Medicare annual wellness visit, initial Z00.00 ; Chronic obstructive pulmonary disease, unspecified COPD type J44.9 ; Encounter for immunization Z23 ; Other chronic pain G89.29 ; Lumbar radiculopathy M54.16 ; Gastroesophageal reflux disease, esophagitis presence not specified K21.9 ; Routine adult health maintenance Z00.00 ; Major depressive disorder, recurrent, in full remission F33.42 and Breast cancer screening Z12.31 [facility] [place] [address] [address]- [address] 02 Jul, 2018 [facility] [place] [address] [address]62- 7194 21 Jun, 2018 Chronic obstructive pulmonary disease, unspecified COPD type J44.9 ; Lumbar radiculopathy M54.16 ; Moderate episode of recurrent major depressive disorder F33.1 and Hammer toe of right foot M20.41 [place] [address] [address]- 97[address] 20 Jun, 2018 [place] [address] 04[address]- 0816 17 Jun, 2018 [facility] [address] 79678 -[address]269 13 Jun, 2018 Acute respiratory distress R06.03 [place] [address] 16969- 3753 05 Jun, 2018 Chronic pain due to trauma G89.21 and Atrophic gastritis without hemorrhage K29.40 [place] [address] [address]- 2712 08 May, 2018 Atrophic gastritis without hemorrhage K29.40 and Chronic pain due to trauma G89.21 [place] [address] [address]- [address] 13 Apr, 2018 Strain of neck muscle, subsequent encounter S16.1XXD and Lumbar radiculopathy M54.16 [place] [address] 70857- 0833 11 Apr, 2018 Atrophic gastritis without hemorrhage K29.40 and Chronic pain due to trauma G89.21 [place] [address] 7[address]49- 0166 Mar, Chronic pain due to trauma G89.21 ; Lumbar radiculopathy M54.16 ; Dysthymia F34.1 ; Pain in right shoulder M25.511 ; Pain in left shoulder M25.512 ; Other chronic pain G89.29 and Chronic obstructive pulmonary disease, unspecified COPD type J44.9 [place] [address] 39546- 8412 14 Mar, 2018 Chronic pain due to trauma G89.21 and Atrophic gastritis without hemorrhage K29.40 [place] [address] 26715- 1599 February, Chronic pain due to trauma G89.21 and Atrophic gastritis without hemorrhage K29.40 [place] [address] 75116- 3781 Jan, Chronic pain due to trauma G89.21 and Atrophic gastritis without hemorrhage K29.40 [place] [address] [address]- [address] Jan, Atrophic gastritis without hemorrhage K29.40 [place] [address] 23446- 0743 Dec, Atrophic gastritis without hemorrhage K29.40 and Chronic pain due to trauma G89.21 [place] [id number] [place] [address] 03183- 3027 Dec, Chronic pain due to trauma G89.21 and Lumbar radiculopathy M54.16 [place] [id number] [place] [address] 96593- 4519 Dec, Lumbar radiculopathy M54.16 [place] [address] 61832- 9261 Dec, [place] [id number] [place] [address] 06684- 8702 Nov, Chronic pain due to trauma G89.21 [place] [address] [place] [address]- [address]77 19 Nov, 2017 BMI 40.0-44.9, adult Z68.41 ; Lumbar radiculopathy M54.16 and Dysthymia F34.1 [facility] [place] [id number] [place] [address] 71894- 3100 13 Nov, 2017 [facility] [place] [id number] [place] [address] 94130- 1059 Nov, [facility] [place] [address] [address]- 1306 Oct, [facility] [place] [address] 26181- 3693 Oct, Chronic pain due to trauma G89.21 ; Gastroesophageal reflux disease, esophagitis presence not specified K21.9 ; Dysthymia F34.1 ; Lumbar radiculopathy M54.16 ; Esophageal dysphagia R13.10 and BMI 40.0-44.9, adult Z68.41 [facility] [id number] [place] [address] 82491 -7298 Sep, History of anemia Z86.2 and Acute allergic rhinitis, unspecified seasonality, unspecified trigger J30.9 [facility] [place] [id number] [place] [address] 39790- 6820 05 Sep, 2017 [facility] [place] [id number] [place] [address] 90190- 9240 14 Jul, 2016 [facility] [place] [id number] [place] [address] 48429- 8418 14 Jan, 2015 [facility] [place] [id number] [place] [address] 99378- 9605 Jan, [facility] [place] [id number] [place] [address] 98455- 1128 Nov, [facility] [place] [id number] [place] [address] 24998- 2346 Nov, [facility] [place] [facility] [address] [id number] [place] [address]- 7324 Oct, [facility] [place] [facility] [address] [id number] [place] [address]- 6663 Aug, [facility] [place] [facility] [address] [id number] [place] [address]- 6668 Aug, [facility] [place] [facility] [address] [id number] [place] [address]- 1361 Jul, [facility] [place] [facility] [address] [id number] [place] [address]- 9009 Jul, [facility] [place] [facility] [address] [id number] [place] [address]- 4310 Jul, [facility] [place] [facility] [address] [id number] [place] [address]- 8830 Jul, [facility] [place] [facility] [address] [id number] [place] [address]- 9861 Jul, [facility] [place] [facility] [address] [id number] [place] [address]- 8533 Jun, [facility] [place] [facility] [address] [id number] [place] [address]- 6229 Jun, [facility] [place] [facility] [address] [id number] [place] [address]- 3982 Jun, [facility] [place] [facility] [address] [id number] [place] [address]- 8697 May, [facility] [place] [facility] [address] [id number] [place] [address]- 4309 May, [facility] [place] [facility] [address] [id number] [place] [address]- 1900 May, [facility] [place] [facility] [address] [id number] [place] [address]- 2546 May, [facility] [place] [facility] [address] [id number] [place] [address]- 8211 Apr, [facility] [address] [id number] [place] [address]- 6597 Apr, [facility] [place] [facility] [address] [id number] [place] [address]- 8274 Apr, [facility] [place] [facility] [address] [id number] [place] [address]- 6569 Apr, [facility] [place] [facility] [address] [id number] [place] [address]- 0839 Mar, [facility] [place] [facility] [address] [id number] [place] [address]- 4791 Mar, [facility] [place] [facility] [address] [id number] [place] [address]- 1516 Mar, [facility] [place] [facility] [address] [id number] [place] [address]- 4285 February, [facility] [place] [facility] [address] [id number] [place] [address]- 8607 February, [facility] [place] [facility] [address] [id number] [place] [address]- 5296 February, [facility] [place] [facility] [address] [id number] [place] [address]- 4705 February, [facility] [place] [facility] [address] [id number] [place] [address]- 2626 February, [facility] [place] [facility] [address] [id number] [place] [address]- 5019 February, [facility] [place] [facility] [address] [id number] [place] [address]- 8660 Jan, [facility] [place] [facility] [address] [id number] [place] [address]- 9352 Jan, [facility] [place] [facility] [address] [id number] [place] [address]- 4650 Dec, [facility] [place] [facility] [address] [id number] [place] [address]- 3205 Dec, [facility] [address] [id number] [place] [address]- 5166 06 Dec, 2012 [facility] [place] [facility] [address] [id number] [place] [address]- 5706 05 Dec, 2012 [facility] [address] [id number] [place] [address]- 8166 Dec, [facility] [place] [facility] [address] [id number] [place] [address]- 1317 Nov, [facility] [address] [id number] [place] [address]- 8446 Nov, [facility] [place] [facility] [address] [id number] [place] [address]- 6576 Nov, [facility] [address] [id number] [place] [address]- 8106 Nov, [facility] [address] [id number] [place] [address]- 8423 Nov, [facility] [address] [facility] [id number] [place] [address]- 6351 Oct, [facility] [address] [facility] [id number] [place] [address]- 9150 Oct, [facility] [address] [id number] [place] [address]- 3212 Sep, [facility] [address] [id number] [place] [address] 2545 Sep, [facility] [place] [facility] [address] [id number] [place] [address]- 5686 Sep, [facility] [place] [facility] [address] [id number] [place] [address]- 3266 Sep, [facility] [address] [id number] [place] 9084 Sep, [facility] [place] [facility] [address] [id number] [place] [address]- 8204 Sep, [facility] [place] [facility] [address] [id number] [place] [address]- 6197 Sep, [facility] [place] [facility] [address] [id number] [place] [address]- 3148 Sep, [facility] [place] [facility] [address] [id number] [place] [address]- 5756 Aug, [facility] [place] [facility] [address] [id number] [place] [address]- 0740 Aug, [facility] [place] [facility] [address] [id number] [place] [address]- 6974 Aug, [facility] [place] [facility] [address] [id number] [place] [address]- 6291 Aug, [facility] [place] [facility] [address] [id number], [place] [address]- 5530 Aug, [facility] [place] [facility] [address] [id number] [place] [address]- 4830 Aug, [facility] [place] [facility] [address] [facility] [id number], [place] [address]- 7352 Aug, [facility] [place] [facility] [address] [facility] [id number], [place] [address]- 6560 Jul, [facility] [place] [facility] [address] [id number], [place] [address]- 2037 Jul, [facility] [place] [facility] [address] [id number], [place] [address]- 9471 Jul, [facility] [place] [facility] [address] [id number], [place] [address]- 1517 Jul, [facility] [place] [facility] [address] [facility] [id number], [place] [address]- 7829 Jul, [facility] [place] [facility] [address] [id number], [place] [address]- 4896 Jul, [facility] [address] [id number] [place] [address]- 6426 Jul, [facility] [place] [facility] [address] [id number] [place] [address]- 0906 Jun, [facility] [place] [facility] [address] [id number] [place] [address] 2546 Jun, [facility] [place] [facility] [address] [id number] [place] [address] 2546 05 Jun, 2012 [facility] [address] [id number] [place] [address]- 7266 May, [facility] [place] [facility] [address] [id number] [place] [address] 2546 May, [facility] [id number] [place] [address]- 3520 Apr, [facility] [address] [id number] [place] [address]- 4046 Apr, [facility] [id number] [place] [address]- 1214 Mar, [facility] [address] [facility] [id number] [place] [address]- 2676 February, [facility] [address] [id number] [place] [address]- 5846 February, [facility] [place] [facility] [address] [id number], [place] [address]- 2546 February, [facility] [place] [facility] [address] [id number] [place] [address]- 5665 February, [facility] [place] [facility] [address] [facility] [id number] [place] [address]- 4886 February, [facility] [place] [facility] [address] [facility] [id number] [place] [address]- 9966 February, [facility] [place] [facility] [address] [id number] [place] [address]- 8106 February, [facility] [address] [id number] [place] [address]- 0309 Jan, [facility] [place] [facility] [address] [id number] [place] [address] 2546 Dec, [facility] [place] [facility] [address] [id number] [place] [address]- 4106 Dec, [facility] [place] [facility] [address] [id number] [place] [address]- 3058 Oct, [facility] [place] [facility] [address] [id number] [place] [address]- 1965 Oct, [facility] [place] [facility] [address] [id number] [place] [address]- 5204 Oct, [facility] [place] [facility] [address] [id number] [place] [address]- 6508 Oct, [facility] [place] [facility] [address] [id number] [place] [address]- 5604 Oct, [facility] [place] [facility] [address] [id number] [place] [address]- 4556 Oct, [facility] [place] [facility] [address] [id number] [place] [address]- 2849 Oct, [facility] [place] [facility] [address] [id number] [place] [address]- 6756 Oct, [facility] [place] [facility] [address] [id number] [place] [address]- 8654 Oct, [facility] [place] [facility] [address] [id number] [place] [address]- 2496 Sep, [facility] [place] [facility] [address] [id number] [place] [address]- 3346 Sep, [facility] [place] [facility] [address] [id number] [place] [address]- 8299 Sep, [facility] [place] [facility] [address] [id number] [place] [address]- 8610 Sep, [facility] [place] [facility] [address] [id number] [place] [address]- 5504 20 Sep, 2011 [facility] [place] [facility] [address] [id number] [place] 7558 Sep, [facility] [place] [facility] [address] [id number] [place] [address]- 7346 Sep, [facility] [place] [facility] [address] [id number] [place] [address]- 1446 Sep, [facility] [place] [facility] [address] [id number] [place] [address]- 3713 Sep, [facility] [place] [facility] [address] [id number] [place] [address]- 6649 05 Sep, 2011 [facility] [place] [facility] [address] [id number], [place] [address]- 0329 15 Aug, 2011 [facility] [place] [facility] [address] [id number] [place] [address]- 3258 18 Jul, 2011 [facility] [place] [facility] [address] [id number] [place] [address]- 4658 09 Sep, 2010 [facility] [place] [facility] [address] [id number], [place] [address]- 2258 15 Aug, 2010 [facility] [place] [facility] [address] [id number], [place] [address]- 1034 11 Aug, 2010 [facility] [place] [facility] [address] [id number] [place] [address]- 2991 Aug, [facility] [place] [facility] [address] [id number], [place] [address]- 0074 03 Aug, 2010 [facility] [place] [facility] [address] [id number] [place] [address]- 0079 29 Jul, 2010 [facility] [place] [facility] [address] [facility] [id number] [place] [address]- 4552 Jul, [facility] [place] [address] [facility] [id number] [place] [address]- 2671 Jul, IMMUNIZATIONS No Known Immunizations SOCIAL HISTORY Never Assessed REASON FOR VISIT Controlled Med Refill 08/23 PLAN OF CARE VITAL SIGNS MEDICATIONS Medication [...]
--- OUTSIDE RECORDS SUMMARY | 2018-11-21 09:29 | XMS REPORT ---
Author Author NEERU CANO [facility] Address [address] [place] [address] Care Team Providers Care Mac Developer Name Role Phone NEERU CANO Unavailable PROBLEMS Type Condition ICD9-CM Code AQE34-OI Code Onset Dates Condition Status SNOMED Code Problem Gastroesophageal reflux disease, esophagitis presence not specified K21.9 Active 680769278 Problem Acute allergic rhinitis, unspecified seasonality, unspecified trigger J30.9 Active 44041938 Problem History of anemia Z86.2 Active 578124804 Problem Esophageal dysphagia R13.10 Active 52975813 Problem Chronic pain due to trauma G89.21 Active 350484810 Problem Lumbar radiculopathy M54.16 Active 013070555 Problem Major depressive disorder, recurrent, in full remission F33.42 Active 72408921 Problem Hammer toe of right foot M20.41 Active 236181406 Problem Other chronic pain G89.29 Active 27667449 Problem Atrophic gastritis without hemorrhage K29.40 Active 05875276 Problem Moderate episode of recurrent major depressive disorder F33.1 Active 938940071 Problem Chronic obstructive pulmonary disease, unspecified COPD type J44.9 Active 04078662 ALLERGIES No Information ENCOUNTERS Encounter Location Date Diagnosis [facility] [address] [address] Oct, [facility] [id number] [place] [address]45- [address]179 Jul, [facility] [id number] [place] [address] 69506- 0368 Jul, Lumbar radiculopathy M54.16 [facility] [id number] [place] [address]24- 0901 Jul, [facility] [id number] [place] [address] 25723- 3694 Jul, Chronic pain due to trauma G89.21 and Atrophic gastritis without hemorrhage K29.40 [facility] [id number] [place] [address] 63914- 7004 04 Jul, 2018 Medicare annual wellness visit, initial Z00.00 ; Chronic obstructive pulmonary disease, unspecified COPD type J44.9 ; Encounter for immunization Z23 ; Other chronic pain G89.29 ; Lumbar radiculopathy M54.16 ; Gastroesophageal reflux disease, esophagitis presence not specified K21.9 ; Routine adult health maintenance Z00.00 ; Major depressive disorder, recurrent, in full remission F33.42 and Breast cancer screening Z12.31 [place] [address] [address]- [address]87 02 Jul, 2018 [place] [address] 46730- 5060 21 Jun, 2018 Chronic obstructive pulmonary disease, unspecified COPD type J44.9 ; Lumbar radiculopathy M54.16 ; Moderate episode of recurrent major depressive disorder F33.1 and Hammer toe of right foot M20.41 [place] [id number] [place] [address] 30794- 8742 Jun, [place] [address] 98329- 9956 17 Jun, 2018 [facility] [id number] [place] [address] 15492 -0574 13 Jun, 2018 Acute respiratory distress R06.03 [facility] [address] 02497- 0639 05 Jun, 2018 Chronic pain due to trauma G89.21 and Atrophic gastritis without hemorrhage K29.40 [place] [address] 78405- 5254 May, Atrophic gastritis without hemorrhage K29.40 and Chronic pain due to trauma G89.21 [place] [address] 72912- 5283 Apr, Strain of neck muscle, subsequent encounter S16.1XXD and Lumbar radiculopathy M54.16 [place] [address] 27526- 3186 11 Apr, 2018 Atrophic gastritis without hemorrhage K29.40 and Chronic pain due to trauma G89.21 [place] [address] 00708- 8279 14 Mar, 2018 Chronic pain due to trauma G89.21 ; Lumbar radiculopathy M54.16 ; Dysthymia F34.1 ; Pain in right shoulder M25.511 ; Pain in left shoulder M25.512 ; Other chronic pain G89.29 and Chronic obstructive pulmonary disease, unspecified COPD type J44.9 [place] [address] 80445- 9872 14 Mar, 2018 Chronic pain due to trauma G89.21 and Atrophic gastritis without hemorrhage K29.40 [place] [address] 45116- 8928 February, Chronic pain due to trauma G89.21 and Atrophic gastritis without hemorrhage K29.40 [place] [address] 78268- 8702 Jan, Chronic pain due to trauma G89.21 and Atrophic gastritis without hemorrhage K29.40 [place] [address] 05411- 2057 Jan, Atrophic gastritis without hemorrhage K29.40 [place] [address] 25270- 4491 Dec, Atrophic gastritis without hemorrhage K29.40 and Chronic pain due to trauma G89.21 [place] [address] 94042- 4693 Dec, Chronic pain due to trauma G89.21 and Lumbar radiculopathy M54.16 [place] [address] 88509- 5461 08 Dec, [address] [facility] [id number] [place] [address] 95447- 2952 Dec, [facility] [address] 77667- 1041 Nov, Chronic pain due to trauma G89.21 [place] [address] 92871- 8449 Nov, BMI 40.0-44.9, adult Z68.41 ; Lumbar radiculopathy M54.16 and Dysthymia F34.1 [place] [address] 61974- 4812 Nov, [place] [address] 12872- 5144 Nov, [place] [address] 62082- 6355 Oct, [place] [address] 44148- 8252 Oct, Chronic pain due to trauma G89.21 ; Gastroesophageal reflux disease, esophagitis presence not specified K21.9 ; Dysthymia F34.1 ; Lumbar radiculopathy M54.16 ; Esophageal dysphagia R13.10 and BMI 40.0-44.9, adult Z68.41 [facility] [id number] [place] [address] 83056 -9675 Sep, History of anemia Z86.2 and Acute allergic rhinitis, unspecified seasonality, unspecified trigger J30.9 [place] [address] 76695- 7234 Sep, [facility] [address] 22594- 4511 14 Jul, 2016 [place] [address] 99731- 5033 14 Jan, 2015 [place] [address] [id number] [place] [address] Jan, [facility] [place] [facility] [address] [id number] [place] [address]- 5604 Nov, [facility] [place] [facility] [address] [id number] [place] [address]- 5964 Nov, [facility] [place] [facility] [address] [id number] [place] [address]- 9819 Oct, [facility] [place] [facility] [address] [id number] [place] [address]- 2169 Aug, [facility] [place] [facility] [address] [id number] [place] [address]- 2905 Aug, [facility] [place] [facility] [address] [id number] [place] [address]- 8211 Jul, [facility] [place] [facility] [address] [id number] [place] [address]- 7512 Jul, [facility] [place] [facility] [address] [id number] [place] [address]- 5794 Jul, [facility] [place] [facility] [address] [id number] [place] [address]- 8061 Jul, [facility] [place] [facility] [address] [id number] [place] [address]- 8960 Jul, [facility] [place] [facility] [address] [id number] [place] [address]- 7571 24 Jun, 2013 [facility] [place] [facility] [address] [id number] [place] [address]- 4798 16 Jun, 2013 [facility] [place] [facility] [address] [id number] [place] [address]308 11 Jun, 2013 [facility] [place] [facility] [address] [id number] [place] [address] May, [facility] [place] [facility] [address] [id number] [place] [address]- 2741 May, [facility] [address] [id number] [place] [address]- 8083 May, [facility] [place] [facility] [address] [id number] [place] [address]- 2816 May, [facility] [place] [facility] [address] [id number] [place] [address]- 8068 Apr, [facility] [place] [facility] [address] [id number] [place] [address]- 8741 Apr, [facility] [place] [facility] [address] [id number] [place] [address]- 3184 Apr, [facility] [place] [facility] [address] [id number] [place] [address]- 0643 Apr, [facility] [place] [facility] [address] [id number] [place] [address]- 3608 Mar, [facility] [place] [facility] [address] [id number] [place] [address]- 4604 Mar, [facility] [place] [facility] [address] [id number] [place] [address]- 3052 Mar, [facility] [place] [facility] [address] [id number] [place] [address]- 5725 February, [facility] [place] [facility] [address] [id number] [place] [address]- 3891 February, [facility] [place] [facility] [address] [id number] [place] [address]- 2540 February, [facility] [place] [facility] [address] [id number] [place] [address]- 2546 February, [facility] [place] [facility] [address] [id number] [place] [address]- 7176 February, [facility] [place] [facility] [address] [id number] [place] [address]- 2546 February, [facility] [place] [facility] [address] [id number] [place] [address]- 6523 18 Jan, 2013 [facility] [address] [id number] [place] [address]- 9241 04 Jan, 2013 [facility] [address] [id number] [place] [address]- 8526 28 Dec, 2012 [facility] [address] [id number] [place] [address]- 6232 Dec, [facility] [address] [id number] [place] [address] 2543 06 Dec, 2012 [facility] [address] [id number] [place] [address]- 6006 05 Dec, 2012 [facility] [address] [id number] [place] [address]- 2546 Dec, [facility] [address] [id number] [place] [address]- 0588 Nov, [facility] [address] [id number] [place] [address]- 4869 Nov, [facility] [address] [id number] [place] [address]- 4028 Nov, [facility] [address] [facility] [id number] [place] [address]- 4446 Nov, [facility] [address] [id number] [place] [address] 2545 Nov, [facility] [address] [id number] [place] [address]- 9450 Oct, [facility] [place] [facility] [address] [id number] [place] [address]- 2546 Oct, [facility] [address] [id number] [place] [address]- 2546 Sep, [facility] [address] [id number] [place] [address]- 3518 Sep, [facility] [place] [facility] [address] [id number] [place] [address]- 7788 Sep, [facility] [place] [facility] [address] [id number] [place] [address]- 3285 Sep, [facility] [place] [facility] [address] [id number] [place] [address]- 2797 Sep, [facility] [place] [facility] [address] [id number] [place] [address]- 0227 Sep, [facility] [place] [facility] [address] [id number] [place] [address]- 0247 Sep, [facility] [place] [facility] [address] [id number] [place] [address]- 7561 Sep, [facility] [place] [facility] [address] [id number] [place] [address]- 7701 Aug, [facility] [place] [facility] [address] [id number] [place] [address]- 0083 Aug, [facility] [place] [facility] [address] [id number] [place] [address]- 7028 Aug, [facility] [place] [facility] [address] [id number] [place] [address]- 9242 Aug, [facility] [place] [facility] [address] [id number], [place] [address]- 0850 Aug, [facility] [place] [facility] [address] [id number], [place] [address]- 8404 Aug, [facility] [place] [facility] [address] [id number] [place] [address]- 1067 Aug, [facility] [place] [facility] [address] [id number] [place] [address]- 2075 Jul, [facility] [place] [facility] [address] [id number] [place] [address]- 4034 Jul, [facility] [place] [facility] [address] [id number] [place] [address]- 5042 Jul, [facility] [place] [facility] [address] [id number] [place] [address]- 0418 Jul, [facility] [place] [facility] [address] [id number] [place] [address]- 0296 Jul, [facility] [place] [facility] [address] [id number] [place] [address] 2546 Jul, [facility] [place] [facility] [address] [id number] [place] [address] 2540 Jul, [facility] [place] [facility] [address] [id number] [place] [address]- 3310 Jun, [facility] [place] [facility] [address] [id number] [place] [address]- 6766 Jun, [facility] [place] [facility] [address] [id number] [place] [address]- 5998 05 Jun, 2012 [facility] [place] [facility] [address] [id number] [place] [address]- 0855 May, [facility] [place] [facility] [address] [id number] [place] [address]- 7151 May, [facility] [place] [facility] [address] [facility] [id number] [place] [address] 2546 Apr, [facility] [place] [facility] [address] [id number] [place] [address] 2541 Apr, [facility] [place] [facility] [address] [id number] [place] [address] 2544 Mar, [facility] [place] [facility] [address] [id number] [place] [address]- 5130 February, [facility] [place] [facility] [address] [id number] [place] [address] 2546 February, [facility] [place] [facility] [address] [id number] [place] [address]- 2016 February, [facility] [place] [facility] [address] [id number] [place] [address]- 9288 February, [facility] [address] [id number] [place] [address]- 3176 February, [facility] [place] [facility] [address] [id number] [place] [address]- 1546 February, [facility] [address] [id number] [place] [address]- 1778 February, [facility] [address] [id number] [place] [address]- 9220 Jan, [facility] [place] [facility] [address] [id number] [place] [address]- 6020 Dec, [facility] [address] [id number] [place] [address]- 0615 Dec, [facility] [address] [id number] [place] [address]- 4597 Oct, [facility] [address] [id number] [place] [address]- 7440 Oct, [facility] [address] [id number] [place] [address]- 3584 Oct, [facility] [place] [facility] [address] [id number] [place] [address]- 6047 Oct, [facility] [place] [facility] [address] [id number] [place] [address]- 1348 Oct, [facility] [place] [facility] [address] [id number] [place] [address]- 8694 Oct, [facility] [place] [facility] [address] [id number] [place] [address]- 1265 Oct, [facility] [place] [facility] [address] [id number] [place] [address]- 9546 Oct, [facility] [place] [facility] [address] [id number] [place] [address]- 7182 Oct, [facility] [place] [facility] [address] [id number] [place] [address]- 6623 30 Sep, 2011 [facility] [place] [facility] [address] [id number] [place] [address]- 8306 Sep, [facility] [place] [facility] [address] [id number] [place] [address]- 6516 Sep, [facility] [place] [facility] [address] [id number] [place] [address]- 2460 Sep, [facility] [place] [facility] [address] [id number] [place] [address]- 4580 Sep, [facility] [place] [facility] [address] [id number] [place] [address]- 3677 Sep, [facility] [place] [facility] [address] [id number] [place] [address]- 8442 Sep, [facility] [place] [facility] [address] [id number] [place] [address]- 0466 Sep, [facility] [place] [facility] [address] [id number] [place] [address]- 3839 Sep, [facility] [place] [facility] [address] [id number] [place] [address]- 4440 05 Sep, 2011 [facility] [place] [facility] [address] [id number], [place] [address]- 1139 15 Aug, 2011 [facility] [place] [facility] [address] [id number], [place] [address]- 8583 18 Jul, 2011 [facility] [place] [facility] [address] [id number] [place] [address]- 3825 09 Sep, 2010 [facility] [place] [facility] [address] [id number] [place] [address]- 7521 15 Aug, 2010 [facility] [place] [facility] [address] [id number] [place] [address]- 8585 11 Aug, 2010 [facility] [place] [facility] [address] [facility] [id number] [place] [address]- [address] Aug, [facility] [address] [facility] [id number] [address]46 Aug, [facility] [address] [facility] [id number], [place] [address] Jul, [facility] [address] [facility] [id number], [place] [address]- [address] Jul, [facility] [address] [facility] [id number], [place] [address]- 9454 Jul, IMMUNIZATIONS No Known Immunizations SOCIAL HISTORY Never Assessed REASON FOR VISIT PLAN OF CARE VITAL SIGNS MEDICATIONS Medication Instructions Dosage Frequency Start Date End Date Duration Status Diclofenac Sodium 75 MG Orally Twice a day 1 tablet with food or milk 12h 04 Jul, 2018 Oct, 30 day(s) Active RESULTS No Results PROCEDURES [...]
--- OUTSIDE RECORDS SUMMARY | 2018-11-21 09:29 | XMS REPORT ---
Author Author NEERU CANO [facility] Address [address] [place] [address] Care Team Providers Care [employer] Clerk Name Role Phone NEERU CANO Unavailable PROBLEMS Type Condition ICD9-CM Code DBE11-ZA Code Onset Dates Condition Status SNOMED Code Problem Gastroesophageal reflux disease, esophagitis presence not specified K21.9 Active 645104091 Problem Acute allergic rhinitis, unspecified seasonality, unspecified trigger J30.9 Active 32820466 Problem History of anemia Z86.2 Active 000058814 Problem Esophageal dysphagia R13.10 Active 87209710 Problem Chronic pain due to trauma G89.21 Active 348214229 Problem Lumbar radiculopathy M54.16 Active 262635525 Problem Major depressive disorder, recurrent, in full remission F33.42 Active 44490201 Problem Hammer toe of right foot M20.41 Active 464426069 Problem Other chronic pain G89.29 Active 16372521 Problem Atrophic gastritis without hemorrhage K29.40 Active 39873263 Problem Moderate episode of recurrent major depressive disorder F33.1 Active 782981098 Problem Chronic obstructive pulmonary disease, unspecified COPD type J44.9 Active 19911076 ALLERGIES No Information ENCOUNTERS Encounter Location Date Diagnosis [facility] [id number] [address] Oct, [facility] [id number] [place] [address] 10852- 5147 Jul, [facility] [id number] [place] [address] 18113- 4654 Jul, Lumbar radiculopathy M54.16 [facility] [id number] [place] [address] 13085- 5457 Jul, [facility] [id number] [place] [address] 21871- 1290 Jul, Chronic pain due to trauma G89.21 and Atrophic gastritis without hemorrhage K29.40 [facility] [id number] [place] [address] 89955- 9214 04 Jul, 2018 Medicare annual wellness visit, initial Z00.00 ; Chronic obstructive pulmonary disease, unspecified COPD type J44.9 ; Encounter for immunization Z23 ; Other chronic pain G89.29 ; Lumbar radiculopathy M54.16 ; Gastroesophageal reflux disease, esophagitis presence not specified K21.9 ; Routine adult health maintenance Z00.00 ; Major depressive disorder, recurrent, in full remission F33.42 and Breast cancer screening Z12.31 [facility] [address] [address]- [address] 02 Jul, 2018 [facility] [address] 44453- 0973 21 Jun, 2018 Chronic obstructive pulmonary disease, unspecified COPD type J44.9 ; Lumbar radiculopathy M54.16 ; Moderate episode of recurrent major depressive disorder F33.1 and Hammer toe of right foot M20.41 [facility] [id number] [place] [address] 50874- 2388 Jun, [facility] [address] 27687- 7923 17 Jun, 2018 [facility] [id number] [place] [address] 71568 -8188 13 Jun, 2018 Acute respiratory distress R06.03 [facility] [address] 23593- 4589 05 Jun, 2018 Chronic pain due to trauma G89.21 and Atrophic gastritis without hemorrhage K29.40 [facility] [address] 46888- 8561 May, Atrophic gastritis without hemorrhage K29.40 and Chronic pain due to trauma G89.21 [facility] [address] 61450- 0408 Apr, Strain of neck muscle, subsequent encounter S16.1XXD and Lumbar radiculopathy M54.16 [facility] [address] 88716- 8151 11 Apr, 2018 Atrophic gastritis without hemorrhage K29.40 and Chronic pain due to trauma G89.21 [facility] [address] 41157- 5960 14 Mar, 2018 Chronic pain due to trauma G89.21 ; Lumbar radiculopathy M54.16 ; Dysthymia F34.1 ; Pain in right shoulder M25.511 ; Pain in left shoulder M25.512 ; Other chronic pain G89.29 and Chronic obstructive pulmonary disease, unspecified COPD type J44.9 [facility] [address] 04291- 8296 14 Mar, 2018 Chronic pain due to trauma G89.21 and Atrophic gastritis without hemorrhage K29.40 [facility] [address] 40210- 1382 February, Chronic pain due to trauma G89.21 and Atrophic gastritis without hemorrhage K29.40 [facility] [address] 39256- 1420 Jan, Chronic pain due to trauma G89.21 and Atrophic gastritis without hemorrhage K29.40 [facility] [address] 57323- 8681 Jan, Atrophic gastritis without hemorrhage K29.40 [facility] [address] 16512- 3852 Dec, Atrophic gastritis without hemorrhage K29.40 and Chronic pain due to trauma G89.21 [facility] [address] 25434- 8706 Dec, Chronic pain due to trauma G89.21 and Lumbar radiculopathy M54.16 [facility] [address] 25981- 4900 08 Dec, 2017 Lumbar radiculopathy M54.16 [facility] [id number] [place] [address] 67086- 4698 Dec, [facility] [address] 70147- 2594 Nov, Chronic pain due to trauma G89.21 [facility] [address] 81073- 9109 Nov, BMI 40.0-44.9, adult Z68.41 ; Lumbar radiculopathy M54.16 and Dysthymia F34.1 [facility] [address] 38895- 1541 Nov, [facility] [address] 92898- 4144 Nov, [facility] [address] 74104- 8509 Oct, [facility] [address] 01635- 5809 Oct, Chronic pain due to trauma G89.21 ; Gastroesophageal reflux disease, esophagitis presence not specified K21.9 ; Dysthymia F34.1 ; Lumbar radiculopathy M54.16 ; Esophageal dysphagia R13.10 and BMI 40.0-44.9, adult Z68.41 [facility] [id number] [place] [address] 33404 -4693 Sep, History of anemia Z86.2 and Acute allergic rhinitis, unspecified seasonality, unspecified trigger J30.9 [facility] [address] 27093- 9652 Sep, [facility] [address] 06644- 1624 14 Jul, 2016 [facility] [address] 29285- 5852 14 Jan, 2015 [facility] [address] [id number] [place] [address]- 2195 Jan, [facility] [place] [facility] [address] [id number] [place] [address]- 9749 Nov, [facility] [place] [facility] [address] [id number] [place] [address]- 3068 Nov, [facility] [place] [facility] [address] [id number] [place] [address]- 8437 Oct, [facility] [place] [facility] [address] [id number] [place] [address]- 7038 Aug, [facility] [place] [facility] [address] [id number] [place] [address]- 2547 Aug, [facility] [place] [facility] [address] [id number] [place] [address]- 5521 Jul, [facility] [place] [facility] [address] [id number] [place] [address]- 9077 Jul, [facility] [place] [facility] [address] [id number] [place] [address]- 4406 Jul, [facility] [place] [facility] [address] [id number] [place] [address]- 8923 Jul, [facility] [place] [facility] [address] [id number] [place] [address]- 1355 Jul, [facility] [place] [facility] [address] [id number] [place] [address]- 5797 24 Jun, 2013 [facility] [place] [facility] [address] [id number] [place] [address]- 6106 16 Jun, 2013 [facility] [place] [facility] [address] [id number] [place] 8529 11 Jun, 2013 [facility] [place] [facility] [address] [id number] [place] [address] May, [facility] [place] [facility] [address] [id number] [place] [address]- 8163 May, [facility] [address] [id number] [place] [address]- 2345 May, [facility] [place] [facility] [address] [id number] [place] [address]- 8286 May, [facility] [place] [facility] [address] [id number] [place] [address]- 2716 Apr, [facility] [place] [facility] [address] [id number] [place] [address]- 0066 Apr, [facility] [place] [facility] [address] [id number] [place] [address]- 0782 Apr, [facility] [place] [facility] [address] [id number] [place] [address]- 3852 Apr, [facility] [place] [facility] [address] [id number] [place] [address]- 1752 Mar, [facility] [place] [facility] [address] [id number] [place] [address]- 0213 Mar, [facility] [place] [facility] [address] [id number] [place] [address]- 6098 Mar, [facility] [place] [facility] [address] [id number] [place] [address]- 1306 February, [facility] [place] [facility] [address] [id number] [place] [address]- 2140 February, [facility] [place] [facility] [address] [id number] [place] [address]- 2545 February, [facility] [place] [facility] [address] [id number] [place] [address]- 2546 February, [facility] [place] [facility] [address] [id number] [place] [address]- 7266 February, [facility] [place] [facility] [address] [id number] [place] [address]- 2546 February, [facility] [place] [facility] [address] [id number] [place] [address]- 8095 18 Jan, 2013 [facility] [address] [id number] [place] [address]- 1964 04 Jan, 2013 [facility] [address] [id number] [place] [address]- 9309 28 Dec, 2012 [facility] [address] [id number] [place] [address]- 9340 Dec, [facility] [address] [id number] [place] [address] 2549 06 Dec, 2012 [facility] [address] [id number] [place] [address]- 3781 05 Dec, 2012 [facility] [address] [id number] [place] [address]- 2546 Dec, [facility] [address] [id number] [place] [address]- 2681 Nov, [facility] [address] [id number] [place] [address]- 4500 Nov, [facility] [address] [id number] [place] [address]- 4343 Nov, [facility] [address] [facility] [id number] [place] [address]- 8298 Nov, [facility] [address] [id number] [place] [address] 2549 Nov, [facility] [address] [id number] [place] [address]- 9900 Oct, [facility] [place] [facility] [address] [id number] [place] [address]- 2546 Oct, [facility] [address] [id number] [place] [address]- 2546 Sep, [facility] [address] [id number] [place] [address]- 7048 Sep, [facility] [place] [facility] [address] [id number] [place] [address]- 9704 Sep, [facility] [place] [facility] [address] [id number] [place] [address]- 5899 Sep, [facility] [place] [facility] [address] [id number] [place] [address]- 7522 Sep, [facility] [place] [facility] [address] [id number] [place] [address]- 3333 Sep, [facility] [place] [facility] [address] [id number] [place] [address]- 6243 Sep, [facility] [place] [facility] [address] [id number] [place] [address]- 0507 Sep, [facility] [place] [facility] [address] [id number] [place] [address]- 6012 Aug, [facility] [place] [facility] [address] [id number] [place] [address]- 9403 Aug, [facility] [place] [facility] [address] [id number] [place] [address]- 9515 Aug, [facility] [place] [facility] [address] [id number] [place] [address]- 6019 Aug, [facility] [place] [facility] [address] [id number] [address]- 9220 Aug, [facility] [place] [facility] [address] [id number] [address]- 4991 Aug, [facility] [place] [facility] [address] [id number] [place] [address]- 3290 Aug, [facility] [place] [facility] [address] [id number] [place] [address]- 1595 Jul, [facility] [place] [facility] [address] [id number] [place] [address]- 3585 Jul, [facility] [place] [facility] [address] [id number] [place] [address]- 0455 Jul, [facility] [place] [facility] [address] [id number] [place] [address]- 1064 Jul, [facility] [place] [facility] [address] [id number] [place] [address]- 1761 Jul, [facility] [place] [facility] [address] [id number] [place] [address] 2546 Jul, [facility] [place] [facility] [address] [id number] [place] [address] 2540 Jul, [facility] [place] [facility] [address] [id number] [place] [address]- 5472 Jun, [facility] [place] [facility] [address] [id number] [place] [address]- 6156 Jun, [facility] [place] [facility] [address] [id number] [place] [address]- 8958 05 Jun, 2012 [facility] [place] [facility] [address] [id number] [place] [address]- 0279 May, [facility] [place] [facility] [address] [id number] [place] [address]- 2117 May, [facility] [place] [facility] [address] [facility] [id number] [place] [address] 2546 Apr, [facility] [place] [facility] [address] [id number] [place] [address] 2542 Apr, [facility] [place] [facility] [address] [id number] [place] [address] 254 Mar, [facility] [place] [facility] [address] [id number] [place] [address]- 3273 February, [facility] [place] [facility] [address] [id number] [place] [address] 2546 February, [facility] [place] [facility] [address] [id number] [place] [address]- 6696 February, [facility] [place] [facility] [address] [id number] [place] [address]- 4887 February, [facility] [address] [id number] [place] [address]- 7688 February, [facility] [place] [facility] [address] [id number] [place] [address]- 2306 February, [facility] [address] [id number] [place] [address]- 6294 February, [facility] [address] [id number] [place] [address]- 2633 Jan, [facility] [place] [facility] [address] [id number] [place] [address]- 0566 Dec, [facility] [address] [id number] [place] [address]- 2493 Dec, [facility] [address] [id number] [place] [address]- 4401 Oct, [facility] [address] [id number] [place] [address]- 8572 Oct, [facility] [address] [id number] [place] [address]- 5864 Oct, [facility] [place] [facility] [address] [id number] [place] [address]- 0126 Oct, [facility] [place] [facility] [address] [id number] [place] [address]- 0514 Oct, [facility] [place] [facility] [address] [id number] [place] [address]- 6414 Oct, [facility] [place] [facility] [address] [id number] [place] [address]- 9488 Oct, [facility] [place] [facility] [address] [id number] [place] [address]- 2161 Oct, [facility] [place] [facility] [address] [id number] [place] [address]- 7851 Oct, [facility] [place] [facility] [address] [id number] [place] [address]- 6999 30 Sep, 2011 [facility] [place] [facility] [address] [id number] [place] [address]- 9006 Sep, [facility] [place] [facility] [address] [id number] [place] [address]- 0916 Sep, [facility] [place] [facility] [address] [id number] [place] [address]- 4590 Sep, [facility] [place] [facility] [address] [id number] [place] [address]- 2136 Sep, [facility] [place] [facility] [address] [id number] [place] [address]- 9487 Sep, [facility] [place] [facility] [address] [id number] [place] [address]- 2599 Sep, [facility] [place] [facility] [address] [id number] [place] [address]- 0966 Sep, [facility] [place] [facility] [address] [id number] [place] [address]- 3747 Sep, [facility] [place] [facility] [address] [id number] [place] [address]- 7501 05 Sep, 2011 [facility] [place] [facility] [address] [id number] [address]- 4248 15 Aug, 2011 [facility] [place] [facility] [address] [id number] [address]- 5062 18 Jul, 2011 [facility] [place] [facility] [address] [id number] [place] [address]- 9634 09 Sep, 2010 [facility] [place] [facility] [address] [id number] [place] [address]- 5009 15 Aug, 2010 [facility] [place] [facility] [address] [id number] [place] [address]- 8230 11 Aug, 2010 [facility] [place] [facility] [address] [facility] [id number] [place] [address]- 0096 Aug, [facility] [address] [facility] [id number] [place] [address] Aug, [facility] [address] [facility] [id number] [place] [address] Jul, [facility] [address] [facility] [id number] [place] [address]- 4573 Jul, [facility] [address] [facility] [id number] [place] [address]- 6869 Jul, IMMUNIZATIONS No Known Immunizations SOCIAL HISTORY Never Assessed REASON FOR VISIT Controlled Med Refill PLAN OF CARE VITAL SIGNS MEDICATIONS Medication Instructions Dosage Frequency Start Date End Date Duration Status Oxycodone-Acetaminophen 10-325 MG Orally 3 times a day 1 tablet as needed 8h Jul, 28 days Active MS Contin 30 MG Orally every 12 hrs 1 tablet 12h Jul, 28 days Active RESULTS No Results PROCEDURES [...]
--- OUTSIDE RECORDS SUMMARY | 2018-11-21 09:29 | XMS REPORT ---
Author Author NEERU CANO Organization [facility] [place] Address [address] [place] [address] Care Team Providers Care Certified Legal Investigator Name Role Phone NEERU CANO Unavailable PROBLEMS Type Condition ICD9-CM Code BYR04-DM Code Onset Dates Condition Status SNOMED Code Problem Acute allergic rhinitis, unspecified seasonality, unspecified trigger J30.9 Active 69528423 Problem Chronic obstructive pulmonary disease, unspecified COPD type J44.9 Active 79785504 Problem Atrophic gastritis without hemorrhage K29.40 Active 07509451 Problem Anxiety F41.9 Active 96291022 Problem Severe episode of recurrent major depressive disorder, without psychotic features F33.2 Active 37269963 Problem Moderate episode of recurrent major depressive disorder F33.1 Active 975384689 Problem Other chronic pain G89.29 Active 64745150 Problem Major depressive disorder, recurrent, in full remission F33.42 Active 76034433 Problem Hammer toe of right foot M20.41 Active 955937915 Problem Lumbar radiculopathy M54.16 Active 206332591 Problem Chronic pain due to trauma G89.21 Active 234821879 Problem Gastroesophageal reflux disease, esophagitis presence not specified K21.9 Active 145015691 Problem Esophageal dysphagia R13.10 Active 50963758 Problem History of anemia Z86.2 Active 759197166 ALLERGIES No Information ENCOUNTERS Encounter Location Date Diagnosis [facility] [place] [address] [facility] [id number], [place] [address] Oct, [facility] [place] [id number] [address] Aug, [facility] [place] [address] [address] Aug, [facility] [address] [id number] [address] Jul, Right hip pain M25.551 ; Urinary tract infection without hematuria, site unspecified N39.0 and Right sided abdominal pain R10.9 [place] [id number] [place] [address] 04834- 3488 Jul, [place] [id number] [place] [address] 31137- 4807 Jul, [place] [address] [address]- 5555 Jul, [place] [id number] [place] [address] 92066- 6383 Jul, Gastroesophageal reflux disease, esophagitis presence not specified K21.9 [place] [id number] [place] [address] 71397- 2915 Jul, [place] [id number] [place] [address] 34665- 6569 Jul, Severe episode of recurrent major depressive disorder, without psychotic features F33.2 and Anxiety F41.9 [place] [id number] [place] [address] 66287- 3321 Jul, Lumbar radiculopathy M54.16 [place] [id number] [place] [address] 79678- 3069 Jul, [place] [id number] [place] [address] 80545- 2311 Jul, Chronic pain due to trauma G89.21 and Atrophic gastritis without hemorrhage K29.40 [place] [id number] [place] [address] 91777- 3548 04 Jul, 2018 Medicare annual wellness visit, initial Z00.00 ; Chronic obstructive pulmonary disease, unspecified COPD type J44.9 ; Encounter for immunization Z23 ; Other chronic pain G89.29 ; Lumbar radiculopathy M54.16 ; Gastroesophageal reflux disease, esophagitis presence not specified K21.9 ; Routine adult health maintenance Z00.00 ; Major depressive disorder, recurrent, in full remission F33.42 and Breast cancer screening Z12.31 [place] [id number] [place] [address] 52798- 4380 Jul, [place] [address] [address]- 1115 Jun, Chronic obstructive pulmonary disease, unspecified COPD type J44.9 ; Lumbar radiculopathy M54.16 ; Moderate episode of recurrent major depressive disorder F33.1 and Hammer toe of right foot M20.41 [place] [id number] [place] [address] 20476- 1609 Jun, [place] [address] 93655- 8753 17 Jun, 2018 [facility] [place] [address] [address] -8159 13 Jun, 2018 Acute respiratory distress R06.[address] [address]- 4265 05 Jun, 2018 Chronic pain due to trauma G89.21 and Atrophic gastritis without hemorrhage K29.40 [place] [address] 19869- 9072 May, Atrophic gastritis without hemorrhage K29.40 and Chronic pain due to trauma G89.21 [place] [address] 55445- 4125 13 Apr, 2018 Strain of neck muscle, subsequent encounter S16.1XXD and Lumbar radiculopathy M54.16 [place] [id number] [place] [address] 19492- 1080 Apr, Atrophic gastritis without hemorrhage K29.40 and Chronic pain due to trauma G89.21 [place] [address] 35807- 4846 14 Mar, 2018 Chronic pain due to trauma G89.21 ; Lumbar radiculopathy M54.16 ; Dysthymia F34.1 ; Pain in right shoulder M25.511 ; Pain in left shoulder M25.512 ; Other chronic pain G89.29 and Chronic obstructive pulmonary disease, unspecified COPD type J44.9 [place] [address] 661145- 9039 Mar, Chronic pain due to trauma G89.21 and Atrophic gastritis without hemorrhage K29.40 [place] [address] [id number]- [address]32 February, Chronic pain due to trauma G89.21 and Atrophic gastritis without hemorrhage K29.40 [place] [address] 37147- 5272 Jan, Chronic pain due to trauma G89.21 and Atrophic gastritis without hemorrhage K29.40 [place] [address] [id number]- [address]696 Jan, Atrophic gastritis without hemorrhage K29.40 [place] [address] 84212- 7705 Dec, Atrophic gastritis without hemorrhage K29.40 and Chronic pain due to trauma G89.21 [place] [address] 91282- 6685 Dec, Chronic pain due to trauma G89.21 and Lumbar radiculopathy M54.16 [place] [address] 81720- 0003 Dec, Lumbar radiculopathy M54.16 [place] [address] 20030- 2105 Dec, [place] [address] 77057- 3951 Nov, Chronic pain due to trauma G89.21 [place] [address] 84687- 9034 Nov, BMI 40.0-44.9, adult Z68.41 ; Lumbar radiculopathy M54.16 and Dysthymia F34.1 [facility] [place] [id number] [place] [address] 50886- 2629 13 Nov, 2017 [facility] [place] [address] 16481- 0857 Nov, [facility] [place] [id number] [place] [address] 34209- 8809 Oct, [facility] [place] [address] 19355- 6325 Oct, Chronic pain due to trauma G89.21 ; Gastroesophageal reflux disease, esophagitis presence not specified K21.9 ; Dysthymia F34.1 ; Lumbar radiculopathy M54.16 ; Esophageal dysphagia R13.10 and BMI 40.0-44.9, adult Z68.41 [facility] [id number] [place] [address] 69024 -0673 Sep, History of anemia Z86.2 and Acute allergic rhinitis, unspecified seasonality, unspecified trigger J30.9 [facility] [place] [id number] [place] [address] 57184- 6260 Sep, [facility] [place] [id number] [place] [address] 87305- 6066 14 Jul, 2016 [facility] [place] [id number] [place] [address] 73356- 6093 14 Jan, 2015 [facility] [place] [id number] [place] [address] 40253- 7331 13 Jan, 2015 [facility] [place] [id number] [place] [address] 58580- 5953 Nov, [facility] [place] [id number] [place] [address] 59931- 8723 Nov, [facility] [place] [id number] [place] [address] 02929- 2183 Oct, [facility] [place] [address] 56134- 5218 Aug, [facility] [place] [facility] [address] [id number] [place] [address]- 5760 Aug, [facility] [place] [facility] [address] [id number] [place] [address]- 9638 Jul, [facility] [place] [facility] [address] [id number] [place] [address] 2542 Jul, [facility] [place] [facility] [address] [id number] [place] [address]- 9865 Jul, [facility] [place] [facility] [address] [id number] [place] [address]- 6218 Jul, [facility] [place] [facility] [address] [id number] [place] [address]- 7815 Jul, [facility] [place] [facility] [address] [id number] [place] [address]- 3664 Jun, [facility] [place] [facility] [address] [id number], [place] [address]- 8885 Jun, [facility] [place] [facility] [address] [id number] [place] [address]- 9194 Jun, [facility] [place] [facility] [address] [id number] [place] [address]- 2655 May, [facility] [place] [facility] [address] [id number], [place] [address]- 5705 May, [facility] [place] [facility] [address] [id number], [place] [address] 2542 May, [facility] [place] [facility] [address] [id number] [place] [address] 2549 May, [facility] [place] [facility] [address] [id number], [place] [address]- 8439 Apr, [facility] [place] [facility] [address] [id number] [place] [address]- 2542 Apr, [facility] [place] [facility] [address] [id number] [place] [address]- 2546 Apr, [facility] [address] [id number] [place] [address]- 9916 Apr, [facility] [address] [id number] [place] [address] 2546 Mar, [facility] [address] [id number] [place] [address]- 2546 Mar, [facility] [address] [id number] [place] [address]- 2546 Mar, [facility] [address] [id number] [place] [address]- 8878 February, [facility] [address] [id number] [place] [address]- 2546 February, [facility] [address] [id number] [place] [address]- 2854 February, [facility] [address] [id number] [place] [address]- 5999 February, [facility] [address] [id number] [place] [address]- 8376 February, [facility] [address] [id number] [place] [address]- 0816 February, [facility] [address] [id number] [place] [address]- 2546 Jan, [facility] [address] [id number] [place] [address]- 2546 Jan, [facility] [place] [facility] [address] [id number] [place] [address]- 2546 Dec, [facility] [place] [facility] [address] [id number] [place] [address]- 2546 Dec, [facility] [address] [id number] [place] [address]- 2546 Dec, [facility] [place] [facility] [address] [id number] [place] [address]- 9002 05 Dec, 2012 [facility] [place] [facility] [address] [id number] [place] [address]- 4494 Dec, [facility] [address] [id number] [place] [address]- 7158 Nov, [facility] [place] [facility] [address] [id number] [place] [address]- 9480 Nov, [facility] [address] [id number] [place] [address]- 6867 Nov, [facility] [place] [facility] [address] [id number] [place] [address]- 8045 Nov, [facility] [address] [id number] [place] [address]- 2406 Nov, [facility] [address] [id number] [place] [address]- 3106 Oct, [facility] [address] [id number] [place] [address]- 1477 Oct, [facility] [address] [id number] [place] [address]- 0733 Sep, [facility] [address] [id number] [place] [address]- 4295 Sep, [facility] [place] [facility] [address] [id number] [place] [address]- 6441 Sep, [facility] [place] [facility] [address] [id number] [place] [address]- 2194 Sep, [facility] [place] [facility] [address] [id number] [place] [address]- 0789 Sep, [facility] [place] [facility] [address] [id number] [place] [address]- 5230 Sep, [facility] [place] [facility] [address] [id number] [place] [address]- 5741 Sep, [facility] [place] [facility] [address] [id number] [place] [address]- 9558 Sep, [facility] [place] [facility] [address] [id number] [place] [address]- 7930 Aug, [facility] [place] [facility] [address] [facility] [id number] [place] [address]- 5151 Aug, [facility] [place] [facility] [address] [id number] [place] [address]- 0234 Aug, [facility] [place] [facility] [address] [id number] [place] [address]- 3196 Aug, [facility] [place] [facility] [address] [id number] [place] [address]- 6980 Aug, [facility] [place] [facility] [address] [facility] [id number] [place] [address]- 4275 Aug, [facility] [place] [facility] [address] [id number] [place] [address]- 8867 Aug, [facility] [place] [facility] [address] [facility] [id number] [place] [address]- 1848 Jul, [facility] [place] [facility] [address] [facility] [id number] [place] [address]- 1716 Jul, [facility] [place] [facility] [address] [facility] [id number] [place] [address]- 6519 Jul, [facility] [place] [facility] [address] [id number], [place] [address]- 6132 Jul, [facility] [place] [facility] [address] [id number] [place] [address]- 0423 Jul, [facility] [place] [facility] [address] [facility] [id number] [place] [address]- 8125 Jul, [facility] [place] [facility] [address] [facility] [id number] 8534 Jul, [facility] [place] [facility] [address] [id number] [place] [address]- 8945 Jun, [facility] [place] [facility] [address] [id number] [place] [address]- 0284 Jun, [facility] [place] [facility] [address] [id number] [place] [address]- 2546 Jun, [facility] [place] [facility] [address] [id number] [place] [address]- 4977 May, [facility] [place] [facility] [address] [id number] [place] [address]- 5258 May, [facility] [place] [facility] [address] [id number] [place] [address]- 7332 Apr, [facility] [place] [facility] [address] [id number] [place] [address]- 8268 Apr, [facility] [place] [facility] [address] [id number] [place] [address]- 4010 Mar, [facility] [place] [facility] [address] [id number] [place] [address]- 9120 February, [facility] [place] [facility] [address] [id number] [place] [address]- 9821 February, [facility] [place] [facility] [address] [id number] [place] [address]- 1614 February, [facility] [place] [facility] [address] [id number] [place] [address]- 4489 February, [facility] [place] [facility] [address] [id number] [place] [address]- 5924 February, [facility] [place] [facility] [address] [id number] [place] [address]- 5016 February, [facility] [place] [facility] [address] [id number] [place] [address]- 5636 February, [facility] [place] [facility] [address] [id number] [place] [address]- 9125 Jan, [facility] [address] [id number] [place] [address]- 4336 30 Dec, 2011 [facility] [place] [facility] [address] [id number] [place] [address]- 2816 Dec, [facility] [address] [id number] [place] [address]- 7242 Oct, [facility] [place] [facility] [address] [id number] [place] [address]- 0539 Oct, [facility] [address] [id number] [place] [address]- 4855 Oct, [facility] [address] [id number] [place] [address]- 0186 Oct, [facility] [address] [id number] [place] [address]- 1489 Oct, [facility] [place] [facility] [address] [id number] [place] [address]- 8512 Oct, [facility] [address] [id number] [place] [address]- 5721 Oct, [facility] [place] [facility] [address] [id number] [place] [address]- 6771 Oct, [facility] [address] [id number] [place] [address]- 3647 Oct, [facility] [place] [facility] [address] [id number] [place] [address]- 1929 Sep, [facility] [place] [facility] [address] [id number] [place] [address]- 2406 Sep, [facility] [place] [facility] [address] [id number] [place] [address]- 0925 Sep, [facility] [place] [facility] [address] [id number] [place] [address]- 2946 Sep, [facility] [place] [facility] [address] [id number] [place] [address]- 3279 20 Sep, 2011 [facility] [address] [id number] [place] [address]- 6666 19 Sep, 2011 [facility] [address] [id number] [place] 9126 19 Sep, 2011 [facility] [address] [id number] [place] [address]- 3845 19 Sep, 2011 [facility] [address] [id number] [place] [address]- 2548 13 Sep, 2011 [facility] [address] [facility] [id number] [place] [address], [place] [address]- 4883 05 Sep, 2011 [facility] [address] [facility] [id number] [place] [address]- 5926 15 Aug, 2011 [facility] [address] [facility] [id number] [place] [address]- 3709 18 Jul, 2011 [facility] [address] [facility] [id number] [place] [address]- 4736 09 Sep, 2010 [facility] [address] [facility] [id number] [place] [address]- 7234 15 Aug, 2010 [facility] [address] [facility] [id number], [place] [address]- 4540 Aug, [facility] [address] [facility] [id number] [place] [address]- 2638 Aug, [facility] [address] [facility] [id number], [place] [address]- 8635 Aug, [facility] [address] [facility] [id number] [place] [address]- 2555 29 Jul, 2010 [facility] [address] [facility] [id number] [place] [address]- 2722 Jul, [facility] [address] [facility] [id number], [place] [address]- 7387 Jul, IMMUNIZATIONS No Known Immunizations SOCIAL HISTORY Never Assessed REASON FOR VISIT CCM call/meds/triage PLAN OF CARE VITAL SIGNS MEDICATIONS Medication Instructions Dosage Frequency Start Date End Date Duration Status Diclofenac Sodium 75 MG Orally Twice a day 1 tablet with food or milk 12h Jul, Oct, 30 day(s) Active Furosemide 40 mg Orally Once a day 1 tablet 24h 90 days Active Zetia 10 mg Orally Once a day 1 tablet 24h 90 days Active Gabapentin 600 MG Orally 3 times a day 1 tablet 8h Jun, 90 days Active MiraLax - Orally Once a day one capful 24h Jul, 30 days Active Oxycodone-Acetaminophen 10-325 MG Orally 3 times a day 1 tablet as needed 8h Jul, 28 days Active Mirtazapine 45 MG Orally Once a day 1 tablet at bedtime 24h 90 days Active Aspirin 81 81 MG Orally 1 and 3 1 tablet Active Quetiapine Fumarate 50 mg Orally at bedtime 1 tablet Active Pantoprazole Sodium 40 mg Orally Once a day 1 tablet 24h 30 days Active Breo Ellipta 200-25 MCG/INH Inhalation Once a day 1 puff 24h Active Lexapro 20 mg Orally Once a day 1/2 tablet 24h Active Duloxetine HCl 60 mg Orally Twice a day 1 capsule 12h Active Potassium Chloride ER 20 meq Orally Once a day 1 tablet with food 24h 90 days Active Colace 100 mg Orally Once a day 2 capsule as needed 24h Active Multi For Her 50+ - Orally Once a day 1 tablet 24h Active Rosuvastatin Calcium 10 mg Orally Once a day 1 tablet 24h 90 days Active MS Contin 30 MG Orally every 12 hrs 1 tablet 12h Jul, 28 days Active Trintellix 10 MG Orally Once a day 1 tablet 24h 12 Jul, 2018 30 day(s) Active Vitamin B Complex-C - Orally daily 150 mg 24h Active Spiriva HandiHaler 18 MCG Inhalation Once a day 1 capsule 24h 18 Jul, 2018 30 days Active Cyclobenzaprine HCl 5 mg Orally 2 times a day 1 tablet as needed 12h Apr 30 days Active Spiriva HandiHaler 18 MCG Inhalation Once a day 1 capsule 24h Active RESULTS No Results PROCEDURES No Known [...]
[2018-11-21 09:30] VITALS: BP 131/82
[2018-11-21] MEDS ORDERED: HURRICAINE EXT TUBE (BENZOCAINE) XX PRN (09:30)
[2018-11-21] MEDS ORDERED: MIDAZOLAM 2 MG/2 ML (VERSED) VIAL IVP ONE (09:30)
[2018-11-21] MEDS ORDERED: fentaNYL INJECTION 100 MCG/2 ML AMP IVP ONE (09:30)
--- OUTSIDE RECORDS SUMMARY | 2018-11-21 09:30 | XMS REPORT ---
Author Author NEERU CANO [facility] Address [address] [place] [address] Care Team Providers Care Residential Sales Associate Name Role Phone NEERU CANO Unavailable PROBLEMS Type Condition ICD9-CM Code VFT64-MS Code Onset Dates Condition Status SNOMED Code Problem Gastroesophageal reflux disease, esophagitis presence not specified K21.9 Active 995537166 Problem Acute allergic rhinitis, unspecified seasonality, unspecified trigger J30.9 Active 04417944 Problem History of anemia Z86.2 Active 534193301 Problem Esophageal dysphagia R13.10 Active 61875539 Problem Chronic pain due to trauma G89.21 Active 412830251 Problem Lumbar radiculopathy M54.16 Active 636120681 Problem Major depressive disorder, recurrent, in full remission F33.42 Active 00865905 Problem Hammer toe of right foot M20.41 Active 917072996 Problem Other chronic pain G89.29 Active 15258354 Problem Atrophic gastritis without hemorrhage K29.40 Active 24093220 Problem Moderate episode of recurrent major depressive disorder F33.1 Active 324187434 Problem Chronic obstructive pulmonary disease, unspecified COPD type J44.9 Active 13662763 ALLERGIES No Information ENCOUNTERS Encounter Location Date Diagnosis [facility] [address] [address] Oct, [facility] [address], [place] [address] Jul, [facility] [id number] [place] [address]69- 9539 Jul, [facility] [id number] [place] [address]82- 8255 Jul, Chronic pain due to trauma G89.21 and Atrophic gastritis without hemorrhage K29.40 [facility] [address] [address] 04 Jul, 2018 Medicare annual wellness visit, initial Z00.00 ; Chronic obstructive pulmonary disease, unspecified COPD type J44.9 ; Encounter for immunization Z23 ; Other chronic pain G89.29 ; Lumbar radiculopathy M54.16 ; Gastroesophageal reflux disease, esophagitis presence not specified K21.9 ; Routine adult health maintenance Z00.00 ; Major depressive disorder, recurrent, in full remission F33.42 and Breast cancer screening Z12.31 [place] [address] [address] 02 Jul, 2018 [place] [address] [address] 21 Jun, 2018 Chronic obstructive pulmonary disease, unspecified COPD type J44.9 ; Lumbar radiculopathy M54.16 ; Moderate episode of recurrent major depressive disorder F33.1 and Hammer toe of right foot M20.41 [place] [address] [address]- [address] 20 Jun, 2018 [place] [address] [address]61- [address] 17 Jun, 2018 [facility] [address] [address] 13 Jun, 2018 Acute respiratory distress R06.03 [place] [address] 05229- 7638 05 Jun, 2018 Chronic pain due to trauma G89.21 and Atrophic gastritis without hemorrhage K29.40 [place] [address] 8[address]- 89[address] 08 May, 2018 Atrophic gastritis without hemorrhage K29.40 and Chronic pain due to trauma G89.21 [place] [address] [address]23- 1402 Apr, Strain of neck muscle, subsequent encounter S16.1XXD and Lumbar radiculopathy M54.16 [place] [address] [address]- 3[address] Apr, Atrophic gastritis without hemorrhage K29.40 and Chronic pain due to trauma G89.21 [place] [address] [address]28- 80[address] 14 Mar, 2018 Chronic pain due to trauma G89.21 ; Lumbar radiculopathy M54.16 ; Dysthymia F34.1 ; Pain in right shoulder M25.511 ; Pain in left shoulder M25.512 ; Other chronic pain G89.29 and Chronic obstructive pulmonary disease, unspecified COPD type J44.9 [place] [address] [place] [id number] [place] [address]21- 3630 Mar, Chronic pain due to trauma G89.21 and Atrophic gastritis without hemorrhage K29.40 [place] [address] [place] [id number] [place] [address] 29590- 1670 February, Chronic pain due to trauma G89.21 and Atrophic gastritis without hemorrhage K29.40 [place] [address] [address]- [address] Jan, Chronic pain due to trauma G89.21 and Atrophic gastritis without hemorrhage K29.40 [place] [address] [place] [id number] [place] [address] 05044- 4413 Jan, Atrophic gastritis without hemorrhage K29.40 [place] [address] [place] [id number] [place] [address] 52544- 3325 Dec, Atrophic gastritis without hemorrhage K29.40 and Chronic pain due to trauma G89.21 [place] [address] [place] [id number] [place] [address] 37085- 5571 Dec, Chronic pain due to trauma G89.21 and Lumbar radiculopathy M54.16 [place] [address] 60483- 0546 Dec, Lumbar radiculopathy M54.16 [place] [address] 0[address]18- [address]604 Dec, [facility] [id number] [place] [address] 75708- 4185 Nov, Chronic pain due to trauma G89.21 [facility] [address] [place] [id number] [place] [address] 71232- 1344 Nov, BMI 40.0-44.9, adult Z68.41 ; Lumbar radiculopathy M54.16 and Dysthymia F34.1 [facility] [address] [place] [address] [id number] [place] [address] 88003- 8190 Nov, [facility] [address] [place] [id number] [place] [address] 74740- 6516 Nov, [facility] [address] 48[address]- 2970 Oct, [facility] [address] [place] [id number] [place] [address] 36168- 7311 Oct, Chronic pain due to trauma G89.21 ; Gastroesophageal reflux disease, esophagitis presence not specified K21.9 ; Dysthymia F34.1 ; Lumbar radiculopathy M54.16 ; Esophageal dysphagia R13.10 and BMI 40.0-44.9, adult Z68.41 [facility] [address] [place] [id number] [place] [address]3508 -2237 Sep, History of anemia Z86.2 and Acute allergic rhinitis, unspecified seasonality, unspecified trigger J30.9 [facility] [address] [place] [id number] [place] [address] 05559- 3353 05 Sep, 2017 [facility] [address] [place] [id number] [place] [address] 86820- 6265 Jul, [facility] [address] [place] [id number] [place] [address] 59861- 0240 14 Jan, 2015 [facility] [address] [place] [address] [id number] [place] [address] 41654- 3153 13 Jan, 2015 [facility] [address] [place] [id number] [place] [address] [place] [address] 2013 [facility] [place] [facility] [address] [id number] [place] [address]- 9565 Nov, [facility] [place] [facility] [address] [id number] [place] [address]- 7915 Oct, [facility] [place] [facility] [address] [id number] [place] [address]- 5092 Aug, [facility] [place] [facility] [address] [id number] [place] [address]- 1392 Aug, [facility] [place] [facility] [address] [id number] [place] [address]- 9040 Jul, [facility] [place] [facility] [address] [id number] [place] [address]- 1151 Jul, [facility] [place] [facility] [address] [id number] [place] [address]- 6621 Jul, [facility] [place] [facility] [address] [id number] [place] [address]- 6030 Jul, [facility] [place] [facility] [address] [id number] [place] [address]- 9984 Jul, [facility] [place] [facility] [address] [id number] [place] [address]- 4765 24 Jun, 2013 [facility] [place] [facility] [address] [id number] [place] [address]- 7272 16 Jun, 2013 [facility] [place] [facility] [address] [id number] [place] [address]- 0768 Jun, [facility] [place] [facility] [address] [id number] [place] [address]- 2384 May, [facility] [place] [facility] [address] [id number] [place] [address]- 6349 May, [facility] [place] [facility] [address] [id number] [place] [address]- 0711 May, [facility] [place] [facility] [address] [id number] [place] [address] 2547 May, [facility] [address] [id number] [place] [address]- 6864 Apr, [facility] [place] [facility] [address] [id number] [place] [address]- 2546 Apr, [facility] [address] [id number] [place] [address]- 4473 Apr, [facility] [address] [id number] [place] [address]- 2919 Apr, [facility] [place] [facility] [address] [id number] [place] [address]- 8252 Mar, [facility] [address] [id number] [place] [address]- 0144 Mar, [facility] [address] [id number] [place] [address]- 1170 Mar, [facility] [address] [id number] [place] [address]- 7234 February, [facility] [address] [id number] [place] [address]- 5176 February, [facility] [place] [facility] [address] [id number] [place] [address]- 6407 February, [facility] [place] [facility] [address] [id number] [place] [address]- 9981 February, [facility] [place] [facility] [address] [id number] [place] [address]- 5143 February, [facility] [place] [facility] [address] [id number] [place] [address]- 6716 February, [facility] [place] [facility] [address] [id number] [place] [address]- 4671 Jan, [facility] [place] [facility] [address] [id number] [place] [address]- 3596 Jan, [facility] [address] [id number] [place] [address]- 6341 28 Dec, 2012 [facility] [address] [id number] [place] [address]- 0906 Dec, [facility] [address] [facility] [id number] [place] [address]- 1033 06 Dec, 2012 [facility] [address] [id number] [place] [address]- 0532 05 Dec, 2012 [facility] [address] [id number] [place] [address]- 7134 Dec, [facility] [address] [id number] [place] [address]- 4027 Nov, [facility] [address] [facility] [id number] [place] [address]- 3439 Nov, [facility] [address] [id number] [place] [address]- 6729 12 Nov, 2012 [facility] [address] [id number] [place] [address]- 9263 07 Nov, 2012 [facility] [address] [facility] [id number] [place] [address]- 1385 Nov, [facility] [address] [id number] [place] [address]- 7105 Oct, [facility] [address] [id number] [place] [address] 254 Oct, [facility] [address] [id number] [place] [address]- 0606 Sep, [facility] [place] [facility] [address] [id number] [place] [address]- 2958 Sep, [facility] [address] [facility] [id number] [place] [address]- 9219 Sep, [facility] [place] [facility] [address] [id number] [place] [address]- 6533 Sep, [facility] [place] [facility] [address] [id number] [place] [address]- 7800 Sep, [facility] [place] [facility] [address] [id number] [place] [address]- 7796 Sep, [facility] [place] [facility] [address] [id number] [place] [address]- 3296 Sep, [facility] [place] [facility] [address] [id number] [place] [address]- 0821 Sep, [facility] [place] [facility] [address] [id number] [place] [address]- 3201 Aug, [facility] [place] [facility] [address] [id number] [place] [address]- 9186 Aug, [facility] [place] [facility] [address] [id number] [place] [address]- 8776 Aug, [facility] [place] [facility] [address] [id number] [place] [address]- 2190 Aug, [facility] [place] [facility] [address] [id number] [place] [address]- 3231 Aug, [facility] [place] [facility] [address] [id number] [place] [address]- 6149 Aug, [facility] [place] [facility] [address] [id number] [place] [address]- 4496 Aug, [facility] [place] [facility] [address] [id number] [place] [address]- 5060 Jul, [facility] [place] [facility] [address] [id number] [place] [address]- 7034 Jul, [facility] [place] [facility] [address] [id number] [place] [address]- 5890 Jul, [facility] [place] [facility] [address] [id number] [place] [address]- 2345 Jul, [facility] [place] [facility] [address] [id number] [place] [address]- 2244 Jul, [facility] [place] [facility] [address] [id number] [place] [address]- 3256 Jul, [facility] [place] [facility] [address] [id number] [place] [address] 2546 Jul, [facility] [place] [facility] [address] [id number] [place] [address]- 7315 Jun, [facility] [place] [facility] [address] [id number] [place] [address]- 4207 Jun, [facility] [place] [facility] [address] [id number] [place] [address]- 2366 Jun, [facility] [place] [facility] [address] [id number] [place] [address]- 6956 May, [facility] [place] [facility] [address] [id number] [place] [address]- 7213 May, [facility] [place] [facility] [address] [id number] [place] [address]- 8074 Apr, [facility] [place] [facility] [address] [id number] [place] [address]- 6976 Apr, [facility] [place] [facility] [address] [id number], [place] [address]- 0422 Mar, [facility] [place] [facility] [address] [id number], [place] [address]- 4278 February, [facility] [place] [facility] [address] [id number] [place] [address]- 6600 February, [facility] [place] [facility] [address] [id number] [place] [address]- 0246 February, [facility] [place] [facility] [address] [id number] [place] [address]- 4506 February, [facility] [place] [facility] [address] [id number] [place] [address]- 6114 February, [facility] [address] [id number] [place] [address]- 0464 February, [facility] [address] [id number] [place] [address]- 4906 February, [facility] [address] [id number] [place] [address]- 3721 Jan, [facility] [place] [facility] [address] [id number] [place] [address]- 6845 Dec, [facility] [address] [id number] [place] [address]- 4871 Dec, [facility] [address] [id number] [place] [address]- 2796 Oct, [facility] [address] [id number] [place] [address]- 9076 Oct, [facility] [address] [id number] [place] [address]- 7009 Oct, [facility] [address] [id number] [place] [address]- 1269 Oct, [facility] [address] [id number] [place] [address]- 7109 Oct, [facility] [address] [id number] [place] [address]- 5862 Oct, [facility] [place] [facility] [address] [id number] [place] [address]- 6248 Oct, [facility] [place] [facility] [address] [id number] [place] [address]- 5576 Oct, [facility] [place] [facility] [address] [id number] [place] [address]- 9286 Oct, [facility] [address] [id number] [place] [address]- 5923 Sep, [facility] [place] [facility] [address] [id number] [place] [address]- 0580 Sep, [facility] [address] [id number] [place] [address]- 6062 Sep, [facility] [place] [facility] [address] [id number] [place] [address]- 5450 Sep, [facility] [address] [id number] [place] [address]- 7201 Sep, [facility] [address] [id number] [place] [address]- 3076 Sep, [facility] [address] [id number] [place] [address]- 5567 Sep, [facility] [address] [id number] [place] [address]- 4328 Sep, [facility] [address] [id number] [place] [address]- 0369 Sep, [facility] [address] [id number] [place] [address]- 7390 Sep, [facility] [address] [id number] [place] [address]- 8376 15 Aug, 2011 [facility] [address] [id number] [place] [address]- 0913 18 Jul, 2011 [facility] [address] [id number] [place] [address]- 2815 09 Sep, 2010 [facility] [place] [facility] [address] [id number] [place] [address]- 7962 15 Aug, 2010 [facility] [place] [facility] [address] [id number] [place] [address]- 2168 Aug, [facility] [place] [facility] [address] [id number] [place] [address]- 8292 11 Aug, 2010 [facility] [place] [facility] [address] [id number] [place] [address]- 0366 Aug, [facility] [address] [facility] [id number] [place] [address]- 2525 Jul, [facility] [address] [facility] [id number] [place] [address]- 7786 Jul, [facility] [address] [facility] [id number] [place] [address]- 3245 Jul, IMMUNIZATIONS No Known Immunizations SOCIAL HISTORY Never Assessed REASON FOR VISIT PA-Timmy PLAN OF CARE VITAL SIGNS MEDICATIONS Medication Instructions Dosage Frequency Start Date End Date Duration Status Breo Ellipta 200-25 MCG/INH Inhalation Once a day 1 puff 24h Jun, Active RESULTS No Results PROCEDURES No Known [...]
--- OUTSIDE RECORDS SUMMARY | 2018-11-21 09:30 | XMS REPORT ---
Author Author GABRIELLE PANCHAL [facility] Address [address] [place] [address] Care Team Providers Care Practice Advisor Name Role Phone GABRIELLE PANCHAL Unavailable PROBLEMS Type Condition ICD9-CM Code JCT80-VX Code Onset Dates Condition Status SNOMED Code Problem Esophageal dysphagia R13.10 Active 13255949 Problem History of anemia Z86.2 Active 800633633 Problem Chronic pain due to trauma G89.21 Active 338030176 Problem Lumbar radiculopathy M54.16 Active 068727685 Problem Gastroesophageal reflux disease, esophagitis presence not specified K21.9 Active 368723209 Problem Moderate episode of recurrent major depressive disorder F33.1 Active 974938222 Problem Hammer toe of right foot M20.41 Active 212983471 Problem Atrophic gastritis without hemorrhage K29.40 Active 58930337 Problem Acute allergic rhinitis, unspecified seasonality, unspecified trigger J30.9 Active 68976540 Problem Other chronic pain G89.29 Active 73447852 Problem Chronic obstructive pulmonary disease, unspecified COPD type J44.9 Active [id number] ALLERGIES No Information ENCOUNTERS Encounter Location Date Diagnosis [facility] [id number] [place] [address] 60318- 8302 Oct, [facility] [id number] [place] [address] 59929- 1256 Jul, [facility] [id number] [place] [address] 79788- 9477 Jul, [facility] [address] 62767- 8054 Jul, [facility] [id number] [place] [address] 63494- 7413 Jun, Chronic obstructive pulmonary disease, unspecified COPD type J44.9 ; Lumbar radiculopathy M54.16 ; Moderate episode of recurrent major depressive disorder F33.1 and Hammer toe of right foot M20.41 [place] [address] 48470- 8301 20 Jun, 2018 [place] [id number] [place] [address] 22896- 7217 17 Jun, 2018 [facility] [address] 79140 -6192 13 Jun, 2018 Acute respiratory distress R06.03 [place] [address] 67223- 8858 05 Jun, 2018 Chronic pain due to trauma G89.21 and Atrophic gastritis without hemorrhage K29.40 [place] [address] 83582- 9730 08 May, 2018 Atrophic gastritis without hemorrhage K29.40 and Chronic pain due to trauma G89.21 [place] [address] 11067- 6652 13 Apr, 2018 Strain of neck muscle, subsequent encounter S16.1XXD and Lumbar radiculopathy M54.16 [place] [address] 12021- 5896 11 Apr, 2018 Atrophic gastritis without hemorrhage K29.40 and Chronic pain due to trauma G89.21 [place] [address] 38315- 6168 14 Mar, 2018 Chronic pain due to trauma G89.21 ; Lumbar radiculopathy M54.16 ; Dysthymia F34.1 ; Pain in right shoulder M25.511 ; Pain in left shoulder M25.512 ; Other chronic pain G89.29 and Chronic obstructive pulmonary disease, unspecified COPD type J44.9 [place] [id number] [place] [address] 52180- 8917 14 Mar, 2018 Chronic pain due to trauma G89.21 and Atrophic gastritis without hemorrhage K29.40 [place] [address] 18867- 3318 February, Chronic pain due to trauma G89.21 and Atrophic gastritis without hemorrhage K29.40 [facility] [address] [id number]- 4226 Jan, Chronic pain due to trauma G89.21 and Atrophic gastritis without hemorrhage K29.40 [place] [address] 20655- 2261 Jan, Atrophic gastritis without hemorrhage K29.40 [place] [address] 92398- 5555 Dec, Atrophic gastritis without hemorrhage K29.40 and Chronic pain due to trauma G89.21 [place] [address] 51957- 5074 Dec, Chronic pain due to trauma G89.21 and Lumbar radiculopathy M54.16 [place] [address] 71185- 6510 Dec, Lumbar radiculopathy M54.16 [place] [address] 61093- 6997 Dec, [place] [address] 26778- 5808 Nov, Chronic pain due to trauma G89.21 [place] [address] 14279- 5656 Nov, BMI 40.0-44.9, adult Z68.41 ; Lumbar radiculopathy M54.16 and Dysthymia F34.1 [place] [address] 98443- 1330 13 Nov, 2017 [place] [address] 29635- 1007 09 Nov, 2017 [place] [address] 68959- 5819 Oct, [facility] [address] [place] [address] 310614- 9893 Oct, Chronic pain due to trauma G89.21 ; Gastroesophageal reflux disease, esophagitis presence not specified K21.9 ; Dysthymia F34.1 ; Lumbar radiculopathy M54.16 ; Esophageal dysphagia R13.10 and BMI 40.0-44.9, adult Z68.41 [facility] [id number] [place] [address] 61410 -3124 Sep, History of anemia Z86.2 and Acute allergic rhinitis, unspecified seasonality, unspecified trigger J30.9 [facility] [id number] [place] [address] 864809- 9435 Sep, [facility] [id number] [place] [address] 49300- 6344 14 Jul, 2016 [facility] [id number] [place] [address] 13869- 2694 14 Jan, 2015 [facility] [id number] [place] [address] 76028- 8347 Jan, [facility] [id number] [place] [address] 50889- 5626 Nov, [facility] [id number] [place] [address] 06065- 3700 Nov, [facility] [id number] [place] [address] 24624- 9214 Oct, [facility] [id number] [place] [address] 44906- 4314 Aug, [facility] [id number] [place] [address] 760049- 2305 Aug, [facility] [id number] [place] [address] 40818- 4511 Jul, [facility] [address] 16092- 1599 Jul, [facility] [place] [facility] [address] [id number] [place] [address]- 9691 Jul, [facility] [place] [facility] [address] [id number] [place] [address]- 4381 Jul, [facility] [place] [facility] [address] [id number] [place] [address]- 5792 Jul, [facility] [place] [facility] [address] [id number] [place] [address]- 3609 Jun, [facility] [place] [facility] [address] [id number] [place] [address]- 7141 Jun, [facility] [place] [facility] [address] [id number] [place] [address]- 4233 Jun, [facility] [place] [facility] [address] [id number] [place] [address]- 5707 May, [facility] [place] [facility] [address] [id number] [place] [address]- 5188 May, [facility] [place] [facility] [address] [id number] [place] [address]- 6894 May, [facility] [place] [facility] [address] [id number] [place] [address]- 3486 May, [facility] [place] [facility] [address] [id number] [place] [address]- 0340 Apr, [facility] [place] [facility] [address] [id number] [place] [address]- 7579 Apr, [facility] [place] [facility] [address] [id number] [place] [address]- 6394 Apr, [facility] [place] [facility] [address] [id number] [place] [address]- 7529 Apr, [facility] [place] [facility] [address] [facility] [id number] [place] [address]- 8396 Mar, [facility] [place] [facility] [address] [id number] [place] [address]- 2546 Mar, [facility] [address] [id number] [place] [address]- 6968 Mar, [facility] [address] [id number] [place] [address]- 2546 February, [facility] [address] [id number] [place] [address]- 5216 February, [facility] [address] [id number] [place] [address]- 7476 February, [facility] [address] [id number] [place] [address]- 2012 February, [facility] [address] [id number] [place] [address]- 9323 February, [facility] [address] [id number] [place] [address]- 5690 February, [facility] [address] [id number] [place] [address]- 2770 Jan, [facility] [address] [id number] [place] [address]- 8525 Jan, [facility] [address] [id number] [place] [address]- 8007 Dec, [facility] [address] [id number] [place] [address]- 5374 Dec, [facility] [address] [id number] [place] [address]- 3232 Dec, [facility] [place] [facility] [address] [id number] [place] [address]- 1176 Dec, [facility] [place] [facility] [address] [id number] [place] [address]- 2546 Dec, [facility] [place] [facility] [address] [id number] [place] [address]- 3153 Nov, [facility] [place] [facility] [address] [id number] [place] [address]- 0466 Nov, [facility] [place] [facility] [address] [id number] [place] [address]- 3416 12 Nov, 2012 [facility] [place] [facility] [address] [id number] [place]156 Nov, [facility] [place] [facility] [address] [id number] [place] [address]- 0274 Nov, [facility] [place] [facility] [address] [id number] [place] [address]- 0005 Oct, [facility] [place] [facility] [address] [id number] [place] [address]- 1578 Oct, [facility] [place] [facility] [address] [id number] [place] [address]- 7318 Sep, [facility] [place] [facility] [address] [id number] [place] [address]- 7067 Sep, [facility] [place] [facility] [address] [id number] [place] [address]- 4172 Sep, [facility] [place] [facility] [address] [id number] [place] [address]- 1599 Sep, [facility] [place] [facility] [address] [id number] [place] [address]- 4900 Sep, [facility] [place] [facility] [address] [id number] [place] [address]- 2617 Sep, [facility] [place] [facility] [address] [id number] [place] [address]- 0955 Sep, [facility] [place] [facility] [address] [id number] [place] [address]- 6350 Sep, [facility] [place] [facility] [address] [id number] [place] [address]- 8969 Aug, [facility] [place] [facility] [address] [id number] [place] [address]- 3947 Aug, [facility] [place] [facility] [address] [id number] [place] [address]- 8307 Aug, [facility] [place] [facility] [address] [id number] [place] [address]- 7048 Aug, [facility] [place] [facility] [address] [id number] [place] [address]- 3370 Aug, [facility] [place] [facility] [address] [id number] [place] [address]- 9900 Aug, [facility] [place] [facility] [id number] [place] [address], [place] [address]- 3727 Aug, [facility] [place] [facility] [address] [id number] [place] [address]- 7670 Jul, [facility] [place] [facility] [address] [id number] [place] [address]- 2638 Jul, [facility] [place] [facility] [address] [id number] [place] [address]- 6201 Jul, [facility] [place] [facility] [address] [id number] [place] [address]- 3905 Jul, [facility] [place] [facility] [address] [facility] [id number] [place] [address]- 3025 Jul, [facility] [place] [facility] [address] [id number] [place] [address]- 4974 Jul, [facility] [place] [facility] [address] [id number] [place] 7271 Jul, [facility] [place] [facility] [address] [id number] [place] [address]- 9091 18 Jun, 2012 [facility] [place] [facility] [address] [id number] [place] [address]- 6756 06 Sep2011 [facility] [place] [facility] [address] [id number] [place] [address]- 0870 Jun, [facility] [address] [id number] [place] [address]- 8484 May, [facility] [place] [facility] [address] [id number] [place] [address]- 1506 May, [facility] [place] [facility] [address] [id number] [place] [address]- 2546 Apr, [facility] [place] [facility] [address] [id number] [place] [address]- 2546 Apr, [facility] [place] [facility] [address] [id number] [place] [address]- 5556 Mar, [facility] [place] [facility] [address] [id number] [place] [address]- 0016 February, [facility] [place] [facility] [address] [id number] [place] [address]- 2766 February, [facility] [place] [facility] [address] [id number] [place] [address]- 2926 February, [facility] [place] [facility] [address] [id number] [place] [address]- 1908 February, [facility] [place] [facility] [address] [id number] [place] [address]- 5216 February, [facility] [place] [facility] [address] [id number] [place] [address]- 2546 February, [facility] [place] [facility] [address] [id number] [place] [address]- 4266 February, [facility] [place] [facility] [address] [id number] [place] [address]- 6376 Jan, [facility] [place] [facility] [address] [id number] [place] [address]- 6476 Dec, [facility] [place] [facility] [address] [id number] [place] [address]- 1456 Dec, [facility] [place] [facility] [address] [id number], [place] [address]- 4539 Oct, [facility] [address] [id number] [place] [address]- 8472 Oct, [facility] [address] [id number] [place] [address]- 3602 Oct, [facility] [address] [id number] [place] [address]- 6429 Oct, [facility] [address] [id number] [place] [address]- 2132 Oct, [facility] [address] [id number] [place] [address]- 0201 Oct, [facility] [address] [id number] [place] [address]- 0272 Oct, [facility] [address] [facility] [id number] [place] [address]- 6190 Oct, [facility] [address] [id number] [place] [address]- 0140 Oct, [facility] [address] [id number] [place] [address]- 3274 Sep, [facility] [address] [id number] [place] [address]- 8985 Sep, [facility] [address] [id number] [place] [address]- 4096 Sep, [facility] [address] [id number] [place] [address]- 4502 Sep, [facility] [address] [id number] [place] [address]- 0616 Sep, [facility] [address] [facility] [id number] [place] [address]- 5028 Sep, [facility] [address] [id number] [place] [address]- 0351 Sep, [facility] [address] [facility] [id number], [place] [address]- 5531 Sep, [facility] [address] [facility] [id number], [place] [address]- 6973 Sep, [facility] [address] [facility] [id number], [place] [address]- 9284 Sep, [facility] [address] [facility] [id number], [place] [address]- 1332 Aug, [facility] [address] [facility] [id number], [place] [address]- 6953 Jul, [facility] [address] [address]- 0429 Sep, [facility] [address], [place] [address]- 5617 Aug, [facility] [address], [place] [address]- 7479 Aug, [facility] [address], [place] [address]- 1642 Aug, [facility] [address], [place] [address]- 6180 Aug, [facility] [address] [id number] [address]- 2892 Jul, [facility] [address] [id number], [place] [address]- 8649 Jul, [facility] [address] [id number], [place] [address]- 1979 Jul, IMMUNIZATIONS No Known Immunizations SOCIAL HISTORY Never Assessed REASON FOR VISIT TCM call/med list update PLAN OF CARE VITAL SIGNS MEDICATIONS Unknown [...]
--- OUTSIDE RECORDS SUMMARY | 2018-11-21 09:30 | XMS REPORT ---
Author Author JOSEPH QUEEN [facility] Address [address] [place] [address] Care Team Providers Care Poly Area Supervisor Name Role Phone JOSEPH QUEEN Unavailable PROBLEMS Type Condition ICD9-CM Code [id number] Code Onset Dates Condition Status SNOMED Code Problem Esophageal dysphagia R13.10 Active 38878002 Problem History of anemia Z86.2 Active 506082055 Problem Chronic pain due to trauma G89.21 Active 547884022 Problem Lumbar radiculopathy M54.16 Active 526313051 Problem Gastroesophageal reflux disease, esophagitis presence not specified K21.9 Active 771567584 Problem Moderate episode of recurrent major depressive disorder F33.1 Active 914542148 Problem Hammer toe of right foot M20.41 Active 081690528 Problem Atrophic gastritis without hemorrhage K29.40 Active 67612197 Problem Acute allergic rhinitis, unspecified seasonality, unspecified trigger J30.9 Active 43876703 Problem Other chronic pain G89.29 Active 14245955 Problem Chronic obstructive pulmonary disease, unspecified COPD type J44.9 Active 49578841 ALLERGIES Substance Reaction Event Type Date Status Penicillin G Sodium Unknown Drug Allergy Jun, Active ENCOUNTERS Encounter Location Date Diagnosis [facility] [address] [id number] [address] Oct, [facility] [address] [id number] [address] Jul, [facility] [id number] [place] [address]15- 9810 Jul, [facility] [address] [id number] [address] Jun, Chronic obstructive pulmonary disease, unspecified COPD type J44.9 ; Lumbar radiculopathy M54.16 ; Moderate episode of recurrent major depressive disorder F33.1 and Hammer toe of right foot M20.41 [place] [id number] [place] [address] 77677- 7852 20 Jun, 2018 [place] [id number] [place] [address] 30624- 9358 17 Jun, 2018 [facility] [address] [address] 13 Jun, 2018 Acute respiratory distress R06.03 [place] [address] [address]- [address] 05 Jun, 2018 Chronic pain due to trauma G89.21 and Atrophic gastritis without hemorrhage K29.40 [place] [address] [address]- 1843 08 May, 2018 Atrophic gastritis without hemorrhage K29.40 and Chronic pain due to trauma G89.21 [place] [address] [address]- [address] Apr, Strain of neck muscle, subsequent encounter S16.1XXD and Lumbar radiculopathy M54.16 [place] [address] [address]- 9[address] 11 Apr, 2018 Atrophic gastritis without hemorrhage K29.40 and Chronic pain due to trauma G89.21 [place] [address] 00[address]- 5725 14 Mar, 2018 Chronic pain due to trauma G89.21 ; Lumbar radiculopathy M54.16 ; Dysthymia F34.1 ; Pain in right shoulder M25.511 ; Pain in left shoulder M25.512 ; Other chronic pain G89.29 and Chronic obstructive pulmonary disease, unspecified COPD type J44.9 [place] [address] [address]- 7067 14 Mar, 2018 Chronic pain due to trauma G89.21 and Atrophic gastritis without hemorrhage K29.40 [place] [address] [address]- 74[address] February, Chronic pain due to trauma G89.21 and Atrophic gastritis without hemorrhage K29.40 [place] [address] [address]- 2142 Jan, Chronic pain due to trauma G89.21 and Atrophic gastritis without hemorrhage K29.40 [place] [address] 485[address]- 9847 Jan, Atrophic gastritis without hemorrhage K29.40 [place] [address] 8[address]39- 8013 Dec, Atrophic gastritis without hemorrhage K29.40 and Chronic pain due to trauma G89.21 [place] [address] 6[address]- 0616 Dec, Chronic pain due to trauma G89.21 and Lumbar radiculopathy M54.16 [place] [address] 41563- 0586 Dec, Lumbar radiculopathy M54.16 [place] [address] 0[address]35- 9841 Dec, [place] [address] 48[address]- 5621 Nov, Chronic pain due to trauma G89.21 [place] [address] 8[address]78- 3481 Nov, BMI 40.0-44.9, adult Z68.41 ; Lumbar radiculopathy M54.16 and Dysthymia F34.1 [place] [address] [address]75- 2702 Nov, [place] [address] 97696- 7914 Nov, [place] [address] 7[address]88- 0880 Oct, [facility] [id number] [place] [address] 91001- 9029 Oct, Chronic pain due to trauma G89.21 ; Gastroesophageal reflux disease, esophagitis presence not specified K21.9 ; Dysthymia F34.1 ; Lumbar radiculopathy M54.16 ; Esophageal dysphagia R13.10 and BMI 40.0-44.9, adult Z68.41 [facility] [id number] [place] [address] 984889 -[address]199 Sep, History of anemia Z86.2 and Acute allergic rhinitis, unspecified seasonality, unspecified trigger J30.9 [facility] [id number] [place] [address] 517876- 2446 Sep, [facility] [id number] [place] [address] 76401- 9593 14 Jul, 2016 [facility] [id number] [place] [address] 44894- 1689 14 Jan, 2015 [facility] [id number] [place] [address] 29187- 0041 Jan, [facility] [id number] [place] [address] 86629- 0970 Nov, [facility] [id number] [place] [address] 981754- 3717 Nov, [facility] [id number] [place] [address] 186561- 3470 Oct, [facility] [id number] [place] [address] 91830- 2512 Aug, [facility] [id number] [place] [address] 84412- 4321 Aug, [facility] [id number] [place] [address] 91531- 7576 Jul, [facility] [id number] [place] [address] 82222- 1302 Jul, [facility] [place] [facility] [address] [id number] [place] [address]- 8651 Jul, [facility] [place] [facility] [address] [id number] [place] [address]- 7764 Jul, [facility] [place] [facility] [address] [id number] [place] [address]- 1810 Jul, [facility] [place] [facility] [address] [id number] [place] [address]- 1885 Jun, [facility] [place] [facility] [address] [id number] [place] [address]- 7018 Jun, [facility] [place] [facility] [address] [id number] [place] [address]- 4622 Jun, [facility] [place] [facility] [address] [id number] [place] [address]- 2020 May, [facility] [place] [facility] [address] [id number] [place] [address]- 2205 May, [facility] [place] [facility] [address] [id number] [place] [address]- 9185 May, [facility] [place] [facility] [address] [id number] [place] [address]- 8082 May, [facility] [place] [facility] [address] [id number], [place] [address]- 5725 Apr, [facility] [place] [facility] [address] [id number], [place] [address]- 1639 Apr, [facility] [place] [facility] [address] [id number] [place] [address]- 3274 Apr, [facility] [place] [facility] [address] [id number], [place] [address]- 9782 Apr, [facility] [place] [facility] [address] [id number] [place] [address]- 2121 Mar, [facility] [place] [facility] [address] [id number] [place] [address] 2544 Mar, [facility] [address] [id number] [place] [address]- 5158 Mar, [facility] [address] [id number] [place] [address]- 7222 February, [facility] [address] [id number] [place] [address]- 8176 February, [facility] [address] [id number] [place] [address]- 2441 February, [facility] [address] [id number] [place] [address]- 1100 February, [facility] [address] [id number] [place] [address]- 6196 February, [facility] [address] [id number] [place] [address]- 6990 February, [facility] [address] [id number] [place] [address]- 3459 Jan, [facility] [address] [id number] [place] [address]- 1922 Jan, [facility] [address] [id number] [place] [address]- 7156 Dec, [facility] [address] [id number] [place] [address]- 0238 Dec, [facility] [address] [id number] [place] [address]- 2541 Dec, [facility] [place] [facility] [address] [id number] [place] [address]- 6773 Dec, [facility] [place] [facility] [address] [id number] [place] [address]- 2546 Dec, [facility] [address] [id number] [place] [address]- 0211 Nov, [facility] [place] [facility] [address] [id number] [place] [address]- 6657 Nov, [facility] [place] [facility] [address] [id number] [place] [address]- 8196 Nov, [facility] [place] [facility] [address] [id number] [place] [address] 2546 Nov, [facility] [place] [facility] [address] [id number] [place] [address] 2546 Nov, [facility] [place] [facility] [address] [id number] [place] [address]- 7214 Oct, [facility] [place] [facility] [address] [id number] [place] [address]- 8732 Oct, [facility] [place] [facility] [address] [id number] [place] [address]- 8266 Sep, [facility] [place] [facility] [address] [id number] [place] [address]- 0036 Sep, [facility] [place] [facility] [address] [id number] [place] [address] 2542 Sep, [facility] [place] [facility] [address] [id number] [place] [address] 254 Sep, [facility] [place] [facility] [address] [id number] [place] [address] 2546 Sep, [facility] [place] [facility] [address] [id number] [place] [address] 2546 Sep, [facility] [place] [facility] [address] [id number] [place] [address] 2546 Sep, [facility] [place] [facility] [address] [id number] [place] [address] 2546 Sep, [facility] [place] [facility] [address] [id number] [place] [address] 2547 Aug, [facility] [place] [facility] [address] [id number], [place] [address]- 7745 Aug, [facility] [place] [facility] [address] [id number] [place] [address]- 9817 Aug, [facility] [place] [facility] [address] [id number] [place] [address]- 9089 Aug, [facility] [place] [facility] [address] [id number] [place] [address]- 5178 Aug, [facility] [place] [facility] [address] [id number] [place] [address]- 8856 Aug, [facility] [place] [facility] [address] [id number] [place] [address], [place] [address]- 5743 Aug, [facility] [place] [facility] [address] [id number] [place] [address]- 3852 Jul, [facility] [place] [facility] [address] [id number] [place] [address]- 4071 Jul, [facility] [place] [facility] [address] [id number] [place] [address]- 8507 Jul, [facility] [place] [facility] [address] [id number] [place] [address]- 1767 Jul, [facility] [place] [facility] [address] [facility] [id number] [place] [address]- 3371 Jul, [facility] [place] [facility] [address] [id number] [place] [address]- 8481 Jul, [facility] [place] [facility] [address] [id number], [place] [address]- 9214 Jul, [facility] [place] [facility] [address] [id number], [place] [address]- 3576 18 Jun, 2012 [facility] [place] [facility] [address] [facility] [id number] [place] [address] 06 Sep2011 [facility] [place] [facility] [address] [facility] [id number]- 6588 05 Sep2011 [facility] [place] [facility] [address] [id number] [place] [address]- 2546 May, [facility] [place] [facility] [address] [id number] [place] [address]- 6286 May, [facility] [place] [facility] [address] [id number] [place] [address]- 2546 Apr, [facility] [place] [facility] [address] [id number] [place] [address] 2546 Apr, [facility] [place] [facility] [address] [id number] [place] [address]- 5520 Mar, [facility] [place] [facility] [address] [id number] [place] [address]- 3736 February, [facility] [place] [facility] [address] [id number] [place] [address]- 6136 February, [facility] [place] [facility] [address] [id number] [place] [address]- 3026 February, [facility] [place] [facility] [address] [id number] [place] [address]- 8280 February, [facility] [place] [facility] [address] [id number] [place] [address]- 7126 February, [facility] [place] [facility] [address] [id number] [place] [address]- 2866 February, [facility] [place] [facility] [address] [id number] [place] [address] 2546 February, [facility] [place] [facility] [address] [id number] [place] [address]- 6354 Jan, [facility] [place] [facility] [address] [id number] [place] [address]- 6836 Dec, [facility] [place] [facility] [address] [id number] [place] [address]- 1776 Dec, [facility] [place] [facility] [address] [id number] [place] [address]- 2468 Oct, [facility] [address] [id number] [place] [address]- 8367 Oct, [facility] [address] [id number] [place] [address]- 4095 Oct, [facility] [address] [id number] [place] [address]- 0719 Oct, [facility] [address] [id number] [place] [address]- 8916 Oct, [facility] [address] [id number] [place] [address]- 1415 Oct, [facility] [address] [id number] [place] [address]- 3730 Oct, [facility] [address] [id number] [place] [address]- 8980 Oct, [facility] [address] [id number] [place] [address]- 1961 Oct, [facility] [address] [id number] [place] [address]- 7838 Sep, [facility] [place] [facility] [address] [id number] [place] [address]- 2707 Sep, [facility] [address] [id number], [place] [address]- 2882 Sep, [facility] [place] [facility] [address] [id number], [place] [address]- 9588 Sep, [facility] [place] [facility] [address] [id number] [place] [address]- 9545 Sep, [facility] [place] [facility] [address] [id number] [place] [address]- 4937 Sep, [facility] [place] [facility] [address] [id number] [place] [address]- 6615 Sep, [facility] [place] [facility] [address], [place] [address]- 7343 Sep, [facility] [address], [place] [address]- 2448 Sep, [facility] [address], [place] [address]- 9804 Sep, [facility] [address], [place] [address]- 5134 Aug, [facility] [address]- 7683 Jul, [facility] [id number] [place] [address] 08566- 4046 Sep, [facility] [id number] [place] [address] 691790- 0994 Aug, [facility] [id number] [place] [address] 791864- 2960 Aug, [facility] [address]- 7023 Aug, [facility] [id number] [place] [address] 243565- 7493 Aug, [facility] [address], [place] [address]- 7140 Jul, [facility] [address]- 1433 Jul, [facility] [address]- [address] Jul, IMMUNIZATIONS No Known Immunizations SOCIAL HISTORY Never Assessed REASON FOR VISIT chest congestion and shortness of breath x2-3 weeks. , Fall x2 in the last 2 weeks PLAN OF CARE Activity Details Follow Up direct admit to rm 432 Reason: VITAL SIGNS Height 58.5 in 2018-07-05 Weight 184.8 lbs 2018-07-05 Temperature 97.9 degrees Fahrenheit 2018-07-05 Heart Rate 93 bpm 2018-07-05 Respiratory Rate 22 2018-07-05 Oximetry 90 % 2018-07-05 BMI 37.96 kg/m2 2018-07-05 Blood pressure systolic 130 mmHg 2018-07-05 Blood pressure diastolic 74 mmHg 2018-07-05 MEDICATIONS Medication Instructions Dosage Frequency Start Date End Date Duration Status Simvastatin 20 MG Orally at bedtime 1 tablet Active Zetia 10 mg Orally Once a day 1 tablet 24h 90 days Active Pantoprazole Sodium 40 mg Orally Once a day 1 tablet 24h 30 days Active BusPIRone HCl 5 mg Orally Twice a day, prn panic feeling 1 tablet Nov Active Mirtazapine 45 MG Orally Once a day 1 tablet at bedtime 24h 90 days Active Ergocalciferol 78043 UNIT Orally once weekly 1 capsule Active Potassium Chloride ER 20 meq Orally Once a day 1 tablet with food 24h 3 Dec, 2018 90 days Active MS Contin 30 MG Orally every 12 hrs 1 tablet 12h Jun, 28 days Active Gabapentin 600 MG Orally 3 times a day 1 tablet 8h 11 Jun, 2013 90 days Active Lexapro 20 mg Orally Once a day 1 tablet 24h 90 days Active Duloxetine HCl 60 mg Orally Once a day 2 capsule 24h 90 days Active Cyclobenzaprine HCl 5 mg Orally 2 times a day 1 tablet as needed 12h Apr Active Rosuvastatin Calcium 10 mg Orally Once a day 1 tablet 24h 90 days Active Colace 100 MG Orally Once a day 1 capsule as needed 24h Active Vitamin B Complex-C - Orally daily 150 mg 24h Active Furosemide 40 mg Orally Once a day 1 tablet 24h 90 days Active Aspirin 81 81 MG Orally 1 and 3 1 tablet Active Oxycodone-Acetaminophen 10-325 MG Orally 3 times a day 1 tablet as needed 8h Jun, 28 days Active RESULTS No Results PROCEDURES Procedure Date Ordered Result Body Site [facility] VISIT ESTABLISHED PATIENT Jul 05, 2018 INSTRUCTIONS MEDICATIONS ADMINISTERED No Known Medications [...] Hospitalization History Surgeries only Hospitalization History hypoxia 9/13-07/07/18
--- OUTSIDE RECORDS SUMMARY | 2018-11-21 09:31 | XMS REPORT ---
Author Author NEERU CANO Organization [facility] Address [address] [place] [address] Care Team Providers [facility] Rep Name Role Phone NEERU CANO Unavailable PROBLEMS Type Condition ICD9-CM Code PYI36-CT Code Onset Dates Condition Status SNOMED Code Problem Dysthymia F34.1 Active 18199564 Problem Esophageal dysphagia R13.10 Active 44107579 Problem Gastroesophageal reflux disease, esophagitis presence not specified K21.9 Active 067332431 Problem Lumbar radiculopathy M54.16 Active 059401211 Problem Other chronic pain G89.29 Active 07520633 Problem Chronic obstructive pulmonary disease, unspecified COPD type J44.9 Active 06335314 Problem History of anemia Z86.2 Active 401522703 Problem Chronic pain due to trauma G89.21 Active 252372116 Problem Atrophic gastritis without hemorrhage K29.40 Active 36265557 Problem Acute allergic rhinitis, unspecified seasonality, unspecified trigger J30.9 Active 94773911 ALLERGIES No Information ENCOUNTERS Encounter Location Date Diagnosis [facility] [id number] [place] [address] 2002 Jun, [facility] [id number] [place] [address] Jun, Acute respiratory distress R06.03 [facility] [address] [address] 05 Jun, 2018 Chronic pain due to trauma G89.21 and Atrophic gastritis without hemorrhage K29.40 [facility] [address] [address]- [address] May, Atrophic gastritis without hemorrhage K29.40 and Chronic pain due to trauma G89.21 [facility] [address] [address] Apr, Strain of neck muscle, subsequent encounter S16.1XXD and Lumbar radiculopathy M54.16 [place] [address] [address]- 4[address] Apr, Atrophic gastritis without hemorrhage K29.40 and Chronic pain due to trauma G89.21 [place] [address] [address]- 4[address] 14 Mar, 2018 Chronic pain due to trauma G89.21 ; Lumbar radiculopathy M54.16 ; Dysthymia F34.1 ; Pain in right shoulder M25.511 ; Pain in left shoulder M25.512 ; Other chronic pain G89.29 and Chronic obstructive pulmonary disease, unspecified COPD type J44.9 [place] [address] [address]- 9[address] 14 Mar, 2018 Chronic pain due to trauma G89.21 and Atrophic gastritis without hemorrhage K29.40 [place] [address] [address]- 8580 February, Chronic pain due to trauma G89.21 and Atrophic gastritis without hemorrhage K29.40 [place] [address] [address]- 9864 Jan, Chronic pain due to trauma G89.21 and Atrophic gastritis without hemorrhage K29.40 [place] [address] [address]- 9472 Jan, Atrophic gastritis without hemorrhage K29.40 [place] [address] [address]43- 1678 Dec, Atrophic gastritis without hemorrhage K29.40 and Chronic pain due to trauma G89.21 [place] [address] [address]- 3[address] Dec, Chronic pain due to trauma G89.21 and Lumbar radiculopathy M54.16 [place] [address] [address]- 7411 Dec, Lumbar radiculopathy M54.16 [facility] [id number] [place] [address] 16467- 2042 Dec, [facility] [id number] [place] [address]176- 5410 Nov, Chronic pain due to trauma G89.21 [facility] [address] 78266- 0017 Nov, BMI 40.0-44.9, adult Z68.41 ; Lumbar radiculopathy M54.16 and Dysthymia F34.1 [facility] [address] [address]- 3514 Nov, [facility] [address] [address]74- 0741 Nov, [facility] [address] [address]- 5667 Oct, [facility] [id number] [place] [address] 09392- 9802 Oct, Chronic pain due to trauma G89.21 ; Gastroesophageal reflux disease, esophagitis presence not specified K21.9 ; Dysthymia F34.1 ; Lumbar radiculopathy M54.16 ; Esophageal dysphagia R13.10 and BMI 40.0-44.9, adult Z68.41 [facility] [id number] [place] [address]99 -3294 Sep, History of anemia Z86.2 and Acute allergic rhinitis, unspecified seasonality, unspecified trigger J30.9 [facility] [id number] [place] [address] 53166- 3773 Sep, [facility] [id number] [place] [address] 39291- 0123 14 Jul, 2016 [facility] [id number] [place] [address] 66708- 3883 14 Jan, 2015 [facility] [address] [id number] [place] [address] Jan, [facility] [place] [facility] [address] [id number] [place] [address]- 5389 Nov, [facility] [place] [facility] [address] [id number] [place] [address]- 9522 Nov, [facility] [place] [facility] [address] [id number] [place] [address]- 0416 Oct, [facility] [place] [facility] [address] [id number] [place] [address]- 6458 Aug, [facility] [place] [facility] [address] [id number] [place] [address]- 8999 Aug, [facility] [place] [facility] [address] [id number] [place] [address]- 5915 Jul, [facility] [place] [facility] [address] [id number] [place] [address]- 3514 Jul, [facility] [place] [facility] [address] [id number] [place] [address]- 0912 Jul, [facility] [place] [facility] [address] [id number] [place] [address]- 8385 Jul, [facility] [place] [facility] [address] [id number] [place] [address]- 2587 Jul, [facility] [place] [facility] [address] [id number] [address] 9370 24 Jun, 2013 [facility] [place] [facility] [address] [id number] [place] [address]- 5633 16 Jun, 2013 [facility] [place] [facility] [address] [id number] [place] [address]- 9287 11 Jun, 2013 [facility] [place] [facility] [address] [id number] [place] [address]- 3475 May, [facility] [place] [facility] [address] [id number] [place] [address]- 9434 May, [facility] [address] [id number] [place] [address]- 6311 May, [facility] [place] [facility] [address] [id number] [place] [address]- 1058 May, [facility] [place] [facility] [address] [id number] [place] [address]- 0525 Apr, [facility] [place] [facility] [address] [id number] [place] [address]- 1741 Apr, [facility] [place] [facility] [address] [id number] [place] [address]- 4831 Apr, [facility] [place] [facility] [address] [id number] [place] [address]- 7374 Apr, [facility] [place] [facility] [address] [id number] [place] [address]- 4109 Mar, [facility] [place] [facility] [address] [id number] [place] [address]- 8824 Mar, [facility] [place] [facility] [address] [id number] [place] [address]- 8641 Mar, [facility] [place] [facility] [address] [id number] [place] [address]- 9803 February, [facility] [place] [facility] [address] [id number] [place] [address]- 5482 February, [facility] [place] [facility] [address] [id number] [place] [address]- 7228 February, [facility] [place] [facility] [address] [id number] [place] [address]- 6418 February, [facility] [place] [facility] [address] [id number] [place] [address]- 9347 February, [facility] [place] [facility] [address] [id number] [place] [address]- 6645 February, [facility] [place] [facility] [address] [id number] [place] [address]- 3565 18 Jan, 2013 [facility] [address] [id number] [place] [address]- 1959 Jan, [facility] [place] [facility] [address] [id number] [place] [address]- 0479 28 Dec, 2012 [facility] [address] [id number] [place] [address]- 9563 Dec, [facility] [address] [id number] [place] [address]- 3032 06 Dec, 2012 [facility] [address] [id number] [place] [address]- 6815 05 Dec, 2012 [facility] [address] [id number] [place] [address]- 3714 Dec, [facility] [address] [id number] [place] [address]- 7099 Nov, [facility] [address] [id number] [place] [address]- 0659 Nov, [facility] [address] [id number] [place] [address]- 6918 Nov, [facility] [address] [id number] [place] [address]- 2809 Nov, [facility] [address] [id number] [place] [address]- 6911 Nov, [facility] [address] [id number] [place] [address]- 6230 Oct, [facility] [place] [facility] [address] [id number] [place] [address]- 8836 Oct, [facility] [place] [facility] [address] [id number] [place] [address]- 9677 Sep, [facility] [place] [facility] [address] [id number] [place] [address]- 1750 Sep, [facility] [place] [facility] [address] [id number] [place] [address]- 4335 Sep, [facility] [place] [facility] [address] [id number] [place] [address]256 Sep, [facility] [place] [facility] [address] [facility] [id number] [place] [address]- 9222 Sep, [facility] [place] [facility] [address] [id number] [place] [address]- 6030 Sep, [facility] [place] [facility] [address] [id number] [place] [address]- 3558 Sep, [facility] [place] [facility] [address] [facility] [id number] [place] [address]- 3646 Sep, [facility] [place] [facility] [address] [id number] [place] [address]- 3358 Aug, [facility] [place] [facility] [address] [id number] [place] [address]- 4181 Aug, [facility] [place] [facility] [address] [id number] [place] [address]- 6643 Aug, [facility] [place] [facility] [address] [facility] [id number] [place] [address]- 7176 Aug, [facility] [place] [facility] [address] [id number] [address]- 8634 Aug, [facility] [place] [facility] [address] [id number] [address]- 1804 Aug, [facility] [place] [facility] [address] [id number] [place] [address]- 3567 Aug, [facility] [place] [facility] [address] [facility] [id number] [place] [address] Jul, [facility] [place] [facility] [address] [facility] [id number] [place] [address]- 1468 Jul, [facility] [place] [facility] [address] [id number] [place] [address]- 1711 Jul, [facility] [address] [id number] [place] [address]- 4160 Jul, [facility] [place] [facility] [address] [id number] [place] [address]- 7817 Jul, [facility] [address] [id number] [place] [address]- 7193 Jul, [facility] [place] [facility] [address] [id number] [place] [address] 2547 Jul, [facility] [address] [id number] [place] [address]- 5274 Jun, [facility] [place] [facility] [address] [id number] [place] [address]- 6182 Jun, [facility] [address] [id number] [place] [address]- 6254 Jun, [facility] [address] [id number] [place] [address]- 7481 May, [facility] [place] [facility] [address] [id number] [place] [address]- 1110 May, [facility] [address] [id number] [place] [address]- 7600 Apr, [facility] [place] [facility] [address] [id number] [place] [address]- 0326 Apr, [facility] [place] [facility] [address] [id number] [place] [address]- 7305 Mar, [facility] [place] [facility] [address] [id number] [place] [address]- 2197 February, [facility] [place] [facility] [address] [id number] [place] [address] 2546 February, [facility] [place] [facility] [address] [id number] [place] [address]- 8377 February, [facility] [address] [id number] [place] [address]- 6070 February, [facility] [address] [id number] [place] [address]- 4356 February, [facility] [address] [id number] [place] [address]- 4436 February, [facility] [address] [id number] [place] [address] 2546 February, [facility] [address] [id number] [place] [address]- 6981 Jan, [facility] [address] [id number] [place] [address]- 1376 Dec, [facility] [address] [id number] [place] [address]- 7693 Dec, [facility] [address] [id number] [place] [address]- 4516 Oct, [facility] [address] [id number] [place] [address]- 3313 Oct, [facility] [address] [id number] [place] [address]- 0542 Oct, [facility] [address] [id number] [place] [address]- 6145 Oct, [facility] [place] [facility] [address] [id number] [place] [address]- 9777 Oct, [facility] [place] [facility] [address] [id number] [place] [address]- 8514 Oct, [facility] [place] [facility] [address] [id number] [place] [address]- 5136 Oct, [facility] [place] [facility] [address] [id number] [place] [address]- 7206 Oct, [facility] [place] [facility] [address] [id number] [address]- 4196 Oct, [facility] [address] [id number] [place] [address]- 0759 30 Sep, 2011 [facility] [place] [facility] [address] [id number] [place] [address]- 7516 Sep, [facility] [place] [facility] [address] [id number] [place] [address]- 3836 Sep, [facility] [place] [facility] [address] [id number] [place] [address]- 7528 Sep, [facility] [place] [facility] [address] [id number] [place] [address]- 6960 20 Sep, 2011 [facility] [place] [facility] [address] [id number] [place] [address]- 3467 Sep, [facility] [address] [id number] [place] [address]- 2109 Sep, [facility] [place] [facility] [address] [id number] [place] [address]- 6209 Sep, [facility] [place] [facility] [address] [id number] [place] [address]- 4436 Sep, [facility] [place] [facility] [address] [id number] [place] [address]- 2849 05 Sep, 2011 [facility] [place] [facility] [address] [id number] [address]- 1315 15 Aug, 2011 [facility] [place] [facility] [address] [id number] [place] [address]- 5740 18 Jul, 2011 [facility] [place] [facility] [address] [id number] [place] [address]- 5654 09 Sep, 2010 [facility] [place] [facility] [address] [id number] [place] [address]- 2453 15 Aug, 2010 [facility] [place] [facility] [address] [id number] [place] [address]- 5291 11 Aug, 2010 [facility] [place] [facility] [address] [facility] [id number] [place] [address]- 2546 Aug, [facility] [address] [facility] [id number] [address]- 1859 Aug, [facility] [address] [facility] [id number] [place] [address]- 6386 Jul, [facility] [address] [facility] [id number] [address]- 2878 Jul, [facility] [address] [facility] [id number] [place] [address] Jul, IMMUNIZATIONS No Known Immunizations SOCIAL HISTORY Never Assessed REASON FOR VISIT Controlled Med Refill 05/31 PLAN OF CARE VITAL SIGNS MEDICATIONS Medication Instructions Dosage Frequency Start Date End Date Duration Status Oxycodone-Acetaminophen 10-325 MG Orally 3 times a day 1 tablet as needed 8h May, 28 days Active MS Contin 30 MG Orally every 12 hrs 1 tablet 12h May, 28 days Active RESULTS No Results PROCEDURES No Known procedures INSTRUCTIONS MEDICATIONS ADMINISTERED No Known Medications MEDICAL (GENERAL) HISTORY Type Description Date Medical History chronic pain, back Medical History Arthritis Medical History chronic obstructive pulmonary disease (COPD) Medical History anxiety Medical History depression Medical History memory loss Surgical History left knee replacement 2003 Surgical [...]
--- OUTSIDE RECORDS SUMMARY | 2018-11-21 09:31 | XMS REPORT ---
Author Author NEERU CANO [facility] Address [address] [place] [address] Care Team Providers Care Quantometer Operator Name Role Phone NEERU CANO Unavailable PROBLEMS Type Condition ICD9-CM Code FIB59-MD Code Onset Dates Condition Status SNOMED Code Problem Dysthymia F34.1 Active 53120293 Problem Esophageal dysphagia R13.10 Active 99313011 Problem Gastroesophageal reflux disease, esophagitis presence not specified K21.9 Active 983542121 Problem Lumbar radiculopathy M54.16 Active 386210387 Problem Other chronic pain G89.29 Active 48517436 Problem Chronic obstructive pulmonary disease, unspecified COPD type J44.9 Active 18982001 Problem History of anemia Z86.2 Active 517445264 Problem Chronic pain due to trauma G89.21 Active 794381311 Problem Atrophic gastritis without hemorrhage K29.40 Active 16190037 Problem Acute allergic rhinitis, unspecified seasonality, unspecified trigger J30.9 Active 00035487 ALLERGIES Substance Reaction Event Type Date Status Penicillin G Sodium Unknown Drug Allergy Apr, Active ENCOUNTERS Encounter Location Date Diagnosis [place] [id number] [place] [address] 39102- 6263 Jun, Chronic pain due to trauma G89.21 and Atrophic gastritis without hemorrhage K29.40 [place] [id number] [place] [address] 43163- 5302 May, Atrophic gastritis without hemorrhage K29.40 and Chronic pain due to trauma G89.21 [place] [address] 14[address]- [address]403 Apr, Strain of neck muscle, subsequent encounter S16.1XXD and Lumbar radiculopathy M54.16 [facility] [id number] [place] [address] 11467- 2531 Apr, Atrophic gastritis without hemorrhage K29.40 and Chronic pain due to trauma G89.21 [place] [address] 19646- 2419 Mar, Chronic pain due to trauma G89.21 ; Lumbar radiculopathy M54.16 ; Dysthymia F34.1 ; Pain in right shoulder M25.511 ; Pain in left shoulder M25.512 ; Other chronic pain G89.29 and Chronic obstructive pulmonary disease, unspecified COPD type J44.9 [place] [address] 27022- 3695 Mar, Chronic pain due to trauma G89.21 and Atrophic gastritis without hemorrhage K29.40 [place] [address] 75271- 0133 February, Chronic pain due to trauma G89.21 and Atrophic gastritis without hemorrhage K29.40 [place] [address] 80176- 4640 Jan, Chronic pain due to trauma G89.21 and Atrophic gastritis without hemorrhage K29.40 [place] [address] 14957- 6169 Jan, Atrophic gastritis without hemorrhage K29.40 [place] [address] 72489- 3702 Dec, Atrophic gastritis without hemorrhage K29.40 and Chronic pain due to trauma G89.21 [place] [address] [place] [id number]- 0919 Dec, Chronic pain due to trauma G89.21 and Lumbar radiculopathy M54.16 [place] [address] [place] [id number]- 0573 Dec, Lumbar radiculopathy M54.16 [place] [address] 7[address]77- 6131 Dec, [place] [address] [place] [address] 4530 22 Nov, 2017 Chronic pain due to trauma G89.21 [facility] [address] 12[address]- 8918 19 Nov, 2017 BMI 40.0-44.9, adult Z68.41 ; Lumbar radiculopathy M54.16 and Dysthymia F34.1 [facility] [address] 74110- 9423 Nov, [facility] [address] 66[address]- 9073 Nov, [facility] [address] 02915- 8285 Oct, [facility] [address] 94163- 3474 Oct, Chronic pain due to trauma G89.21 ; Gastroesophageal reflux disease, esophagitis presence not specified K21.9 ; Dysthymia F34.1 ; Lumbar radiculopathy M54.16 ; Esophageal dysphagia R13.10 and BMI 40.0-44.9, adult Z68.41 [facility] [id number] [place] [address] 56461 -5828 Sep, History of anemia Z86.2 and Acute allergic rhinitis, unspecified seasonality, unspecified trigger J30.9 [facility] [id number] [place] [address] 01797- 5643 05 Sep, 2017 [facility] [id number] [place] [address] 18955- 6829 14 Jul, 2016 [facility] [address] 24247- 9445 14 Jan, 2015 [facility] [id number] [place] [address] 23152- 6565 13 Jan, 2015 [facility] [id number] [place] [address] 52337- 5688 Nov, [facility] [place] [facility] [address] [id number] [place] [address]- 5032 Nov, [facility] [place] [facility] [address] [id number] [place] [address]- 0319 Oct, [facility] [place] [facility] [address] [id number] [place] [address]- 7673 Aug, [facility] [place] [facility] [address] [id number] [place] [address]- 2700 Aug, [facility] [place] [facility] [address] [id number] [place] [address]- 9433 Jul, [facility] [place] [facility] [address] [id number] [place] [address]- 1394 Jul, [facility] [place] [facility] [address] [id number] [place] [address]- 3582 Jul, [facility] [place] [facility] [address] [id number] [place] [address]- 4600 Jul, [facility] [place] [facility] [address] [id number] [place] [address]- 2224 Jul, [facility] [place] [facility] [address] [id number] [place] [address]- 5714 24 Jun, 2013 [facility] [place] [facility] [address] [id number] [place] [address] 3087 16 Jun, 2013 [facility] [place] [facility] [address] [id number] [place] [address]- 1824 Jun, [facility] [place] [facility] [address] [id number] [place] [address]- 7096 May, [facility] [place] [facility] [address] [id number] [place] [address]- 8845 May, [facility] [place] [facility] [address] [id number] [place] [address]- 6512 May, [facility] [place] [facility] [address] [id number] [place] [address] 2548 May, [facility] [address] [id number] [place] [address]- 0384 Apr, [facility] [place] [facility] [address] [id number] [place] [address] 2546 Apr, [facility] [address] [id number] [place] [address]- 6277 Apr, [facility] [place] [facility] [address] [id number] [place] [address]- 254 Apr, [facility] [address] [id number] [place] [address]- 5404 Mar, [facility] [address] [id number] [place] [address]- 2358 Mar, [facility] [address] [id number] [place] [address]- 8474 Mar, [facility] [address] [id number] [place] [address]- 8565 February, [facility] [address] [id number] [place] [address]- 6431 February, [facility] [address] [id number] [place] [address]- 7623 February, [facility] [place] [facility] [address] [id number] [place] [address]- 2227 February, [facility] [place] [facility] [address] [id number] [place] [address]- 2546 February, [facility] [place] [facility] [address] [id number] [place] [address]- 2989 February, [facility] [place] [facility] [address] [id number] [place] [address]- 1046 Jan, [facility] [place] [facility] [address] [id number] [place] [address]- 3219 Jan, [facility] [place] [facility] [address] [id number] [place] [address]- 2088 28 Dec, 2012 [facility] [place] [facility] [address] [id number] [place] [address]- 0701 Dec, [facility] [place] [facility] [address] [id number] [place] [address]- 4615 Dec, [facility] [place] [facility] [address] [id number] [place] [address]- 9955 05 Dec, 2012 [facility] [place] [facility] [address] [id number] [place] [address]- 6199 Dec, [facility] [place] [facility] [address] [id number] [place] [address]- 6333 Nov, [facility] [place] [facility] [address] [id number] [place] [address]- 1000 Nov, [facility] [place] [facility] [address] [id number] [place] [address]- 4679 Nov, [facility] [place] [facility] [address] [id number] [place] [address]- 3612 Nov, [facility] [address] [id number] [place] [address]- 9579 Nov, [facility] [place] [facility] [address] [id number] [place] [address]- 6758 Oct, [facility] [place] [facility] [address] [id number] [place] [address]- 2502 Oct, [facility] [place] [facility] [address] [id number] [place] [address]- 8640 Sep, [facility] [place] [facility] [address] [id number] [place] [address]- 8906 Sep, [facility] [place] [facility] [address] [id number] [place] [address]- 7365 Sep, [facility] [place] [facility] [address] [id number] [place] [address]- 5431 Sep, [facility] [place] [facility] [address] [id number] [place] [address]- 7602 Sep, [facility] [place] [facility] [address] [id number] [place] [address]- 0688 Sep, [facility] [place] [facility] [address] [id number] [place] [address]- 6259 Sep, [facility] [place] [facility] [address] [id number] [place] [address]- 1716 Sep, [facility] [place] [facility] [address] [id number] [place] [address]- 1072 Aug, [facility] [place] [facility] [address] [id number] [place] [address]- 3102 Aug, [facility] [place] [facility] [address] [facility] [id number] [place] [address]- 4961 Aug, [facility] [place] [facility] [address] [id number] [place] [address]- 2074 Aug, [facility] [place] [facility] [address] [id number] [place] [address]- 7670 Aug, [facility] [place] [facility] [address] [facility] [id number] [place] [address]- 0054 Aug, [facility] [place] [facility] [address] [id number] [place] [address]- 9052 Aug, [facility] [place] [facility] [address] [id number] [place] [address]- 4562 Jul, [facility] [place] [facility] [address] [id number] [place] [address]- 0449 Jul, [facility] [place] [facility] [address] [facility] [id number] [place] [address]- 5486 Jul, [facility] [place] [facility] [address] [facility] [id number] [place] [address]- 6883 Jul, [facility] [place] [facility] [address] [id number] [place] [address]- 7636 Jul, [facility] [place] [facility] [address] [id number] [place] [address]- 7756 Jul, [facility] [place] [facility] [address] [id number] [place] [address]- 2546 Jul, [facility] [place] [facility] [address] [id number] [place] [address]- 1367 Jun, [facility] [place] [facility] [address] [id number] [place] [address] 2543 Jun, [facility] [place] [facility] [address] [id number] [place] [address]- 1976 Jun, [facility] [place] [facility] [address] [id number] [place] [address]- 1723 May, [facility] [place] [facility] [address] [id number] [place] [address]- 5801 May, [facility] [place] [facility] [address] [id number] [place] [address]- 4362 Apr, [facility] [place] [facility] [address] [id number] [place] [address]- 8186 Apr, [facility] [place] [facility] [address] [id number] [place] [address]- 1260 Mar, [facility] [place] [facility] [address] [id number] [place] [address]- 8206 February, [facility] [place] [facility] [address] [id number] [place] [address]- 2691 February, [facility] [place] [facility] [address] [id number] [place] [address]- 3896 February, [facility] [place] [facility] [address] [id number] [place] [address]- 2546 February, [facility] [place] [facility] [address] [id number] [place] [address]- 1465 February, [facility] [address] [id number] [place] [address]- 6902 February, [facility] [address] [id number] [place] [address]- 4556 February, [facility] [address] [id number] [place] [address]- 3026 Jan, [facility] [place] [facility] [address] [id number] [place] [address]- 7446 Dec, [facility] [address] [id number] [place] [address]- 9173 Dec, [facility] [address] [id number] [place] [address]- 9506 Oct, [facility] [address] [id number] [place] [address]- 0067 Oct, [facility] [place] [facility] [address] [id number] [place] [address]- 2401 Oct, [facility] [address] [id number] [place] [address]- 7343 Oct, [facility] [place] [facility] [address] [id number] [place] [address]- 6416 Oct, [facility] [address] [id number] [place] [address]- 7166 Oct, [facility] [place] [facility] [address] [id number] [place] [address]- 6426 Oct, [facility] [place] [facility] [address] [id number] [place] [address]- 3216 Oct, [facility] [place] [facility] [address] [id number] [place] [address]- 1936 Oct, [facility] [place] [facility] [address] [id number] [place] [address]- 7686 Sep, [facility] [place] [facility] [address] [id number] [place] [address]- 0655 26 Sep, 2011 [facility] [address] [id number] [place] [address]- 1439 Sep, [facility] [place] [facility] [address] [id number] [place] [address]- 0506 21 Sep, 2011 [facility] [address] [id number] [place] [address]- 0010 20 Sep, 2011 [facility] [place] [facility] [address] [id number] [place] [address]- 7107 19 Sep, 2011 [facility] [address] [id number] [place] [address]- 5700 Sep, [facility] [place] [facility] [address] [id number] [place] [address]- 8917 19 Sep, 2011 [facility] [address] [id number] [place] [address]- 5053 13 Sep, 2011 [facility] [address] [id number] [place] [address]- 4535 05 Sep, 2011 [facility] [place] [facility] [address] [id number] [place] [address]- 7567 15 Aug, 2011 [facility] [address] [id number] [place] [address]- 5351 18 Jul, 2011 [facility] [address] [id number] [place] [address]- 3043 09 Sep, 2010 [facility] [place] [facility] [address] [id number] [place] [address]- 5506 15 Aug, 2010 [facility] [place] [facility] [address] [id number] [place] [address]- 6649 11 Aug, 2010 [facility] [place] [facility] [address] [id number] [place] [address]- 5501 Aug, [facility] [place] [facility] [address] [id number] [place] [address]- 3254 Aug, [facility] [address] [facility] [id number] [place] [address]- 5350 Jul, [facility] [address] [facility] [id number] [place] [address]- 8052 Jul, [facility] [address] [facility] [id number] [place] [address]- 6653 Jul, IMMUNIZATIONS No Known Immunizations SOCIAL HISTORY Never Assessed REASON FOR VISIT f/u ER visit for fall-ANNY mata, got dizzy monday, popping at lower back, hurts to stand , sit and walk PLAN OF CARE Activity Details Follow Up Routine appt Reason: VITAL SIGNS Height 58.5 in 2018-05-04 Weight 190.5 lbs 2018-05-04 Temperature 98.4 degrees Fahrenheit 2018-05-04 Heart Rate 93 bpm 2018-05-04 Respiratory Rate 20 2018-05-04 BMI 39.13 kg/m2 2018-05-04 Blood pressure systolic 112 mmHg 2018-05-04 Blood pressure diastolic 82 mmHg 2018-05-04 MEDICATIONS Medication Instructions Dosage Frequency Start Date End Date Duration Status Vitamin B Complex-C - Orally daily 150 mg 24h Active Zetia 10 mg Orally Once a day 1 tablet 24h 90 days Active Gabapentin 600 MG Orally 3 times a day 1 tablet 8h 11 Jun, 2013 90 days Active Simvastatin 20 MG Orally at bedtime 1 tablet Active Furosemide 40 mg Orally Once a day 1 tablet 24h 90 days Active Pantoprazole Sodium 40 mg Orally Once a day 1 tablet 24h 30 days Active MS Contin 30 MG Orally every 12 hrs 1 tablet 12h Apr, 28 days Active Potassium Chloride ER 20 meq Orally Once a day 1 tablet with food 24h 3 Dec, 2018 90 days Active Lexapro 20 mg Orally Once a day 1 tablet 24h 90 days Active Mirtazapine 45 MG Orally Once a day 1 tablet at bedtime 24h 90 days Active Duloxetine HCl 60 mg Orally Once a day 2 capsule 24h 90 days Active Aspirin 81 81 MG Orally 1 and 3 1 tablet Active Oxycodone-Acetaminophen 10-325 MG Orally 3 times a day 1 tablet as needed 8h Apr, 28 days Active BusPIRone HCl 5 mg Orally Twice a day, prn panic feeling 1 tablet Nov Active Colace 100 MG Orally Once a day 1 capsule as needed 24h Active Cyclobenzaprine HCl 5 mg Orally 2 times a day 1 tablet as needed 12h 13 Apr Active Ergocalciferol 94031 UNIT Orally once weekly 1 capsule Active Rosuvastatin Calcium 10 mg Orally Once a day 1 tablet 24h 90 days Active RESULTS No Results PROCEDURES Procedure Date Ordered Result Body Site LAB NOT BILLED BY [facility] May 04, 2018 EMMETT, ROUTINE* May 04, 2018 [facility] VISIT ESTABLISHED PATIENT May 04, 2018 INSTRUCTIONS MEDICATIONS ADMINISTERED No Known Medications MEDICAL (GENERAL) HISTORY Type Description Date Medical History chronic pain, back Medical History Arthritis Medical History chronic obstructive pulmonary disease (COPD) Medical History anxiety Medical History depression Medical History memory loss Surgical History left knee replacement 2004 Surgical [...]
--- OUTSIDE RECORDS SUMMARY | 2018-11-21 09:31 | XMS REPORT ---
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 Role Phone NEERU CANO Unavailable PROBLEMS Type Condition ICD9-CM Code FME41-EW Code Onset Dates Condition Status SNOMED Code Problem Esophageal dysphagia R13.10 Active 05320100 Problem History of anemia Z86.2 Active 016182775 Problem Chronic pain due to trauma G89.21 Active 937656607 Problem Lumbar radiculopathy M54.16 Active 268680303 Problem Gastroesophageal reflux disease, esophagitis presence not specified K21.9 Active 022193006 Problem Moderate episode of recurrent major depressive disorder F33.1 Active 502584790 Problem Hammer toe of right foot M20.41 Active 275738475 Problem Atrophic gastritis without hemorrhage K29.40 Active 28770481 Problem Acute allergic rhinitis, unspecified seasonality, unspecified trigger J30.9 Active 42208546 Problem Other chronic pain G89.29 Active 84621958 Problem Chronic obstructive pulmonary disease, unspecified COPD type J44.9 Active 21958845 ALLERGIES No Information ENCOUNTERS Encounter Location Date Diagnosis [place] [address], [place] [address] Oct, [facility] [id number] [place] [address] 63873- 2172 Jul, [facility] [id number] [place] [address] 91515- 9137 Jul, [place] [id number] [place] [address] 67559- 9535 Jun, Chronic obstructive pulmonary disease, unspecified COPD type J44.9 ; Lumbar radiculopathy M54.16 ; Moderate episode of recurrent major depressive disorder F33.1 and Hammer toe of right foot M20.41 [place] [id number] [place] [address] 71032- 6744 20 Jun, 2018 [facility] [id number] [place] [address] 86987- 7895 17 Jun, 2018 [facility] [id number] [place] [address] 26613 -7729 13 Jun, 2018 Acute respiratory distress R06.03 [place] [address] [address]- [address] 05 Jun, 2018 Chronic pain due to trauma G89.21 and Atrophic gastritis without hemorrhage K29.40 [place] [address] [address]- 0922 08 May, 2018 Atrophic gastritis without hemorrhage K29.40 and Chronic pain due to trauma G89.21 [place] [id number] [place] [address] 57170- 5646 13 Apr, 2018 Strain of neck muscle, subsequent encounter S16.1XXD and Lumbar radiculopathy M54.16 [place] [id number] [place] [address] 01906- 7613 11 Apr, 2018 Atrophic gastritis without hemorrhage K29.40 and Chronic pain due to trauma G89.21 [place] [id number] [place] [address] 41513- 9469 14 Mar, 2018 Chronic pain due to trauma G89.21 ; Lumbar radiculopathy M54.16 ; Dysthymia F34.1 ; Pain in right shoulder M25.511 ; Pain in left shoulder M25.512 ; Other chronic pain G89.29 and Chronic obstructive pulmonary disease, unspecified COPD type J44.9 [place] [address] 00[address]13- 2316 14 Mar, 2018 Chronic pain due to trauma G89.21 and Atrophic gastritis without hemorrhage K29.40 [place] [id number] [place] [address] 03621- 2095 February, Chronic pain due to trauma G89.21 and Atrophic gastritis without hemorrhage K29.40 [facility] [id number] [place] [address] 32247- 3230 17 Jan, 2018 Chronic pain due to trauma G89.21 and Atrophic gastritis without hemorrhage K29.40 [facility] [id number] [place] [address] 44507- 9436 Jan, Atrophic gastritis without hemorrhage K29.40 [facility] [address] 0[address]- 4533 Dec, Atrophic gastritis without hemorrhage K29.40 and Chronic pain due to trauma G89.21 [place] [address] 21074- 1608 Dec, Chronic pain due to trauma G89.21 and Lumbar radiculopathy M54.16 [place] [address] 51211- 5841 Dec, Lumbar radiculopathy M54.16 [place] [address] 05459- 9775 Dec, [place] [address] 56586- 1305 Nov, Chronic pain due to trauma G89.21 [place] [address] 36775- 9290 Nov, BMI 40.0-44.9, adult Z68.41 ; Lumbar radiculopathy M54.16 and Dysthymia F34.1 [place] [address] [address]52- 5523 Nov, [place] [address] 88960- 9272 Nov, [facility] [address] 43609- 6120 Oct, [place] [address] 30034- 2210 Oct, Chronic pain due to trauma G89.21 ; Gastroesophageal reflux disease, esophagitis presence not specified K21.9 ; Dysthymia F34.1 ; Lumbar radiculopathy M54.16 ; Esophageal dysphagia R13.10 and BMI 40.0-44.9, adult Z68.41 [facility] [address], [place] [address] Sep, History of anemia Z86.2 and Acute allergic rhinitis, unspecified seasonality, unspecified trigger J30.9 [facility] [id number] [place] [address] 050698- 3689 Sep, [facility] [id number] [place] [address] 91009- 4595 Jul, [facility] [id number] [place] [address] 76072- 7056 14 Jan, 2015 [facility] [id number] [place] [address] 40310- 3246 Jan, [facility] [id number] [place] [address] 13896- 9638 Nov, [facility] [id number] [place] [address] 44568- 7289 Nov, [facility] [id number] [address] 8816 Oct, [facility] [id number] [place] [address] 19195- 4578 Aug, [facility] [id number] [place] [address] 78396- 3882 Aug, [facility] [id number] [place] [address] 350564- 0076 Jul, [facility] [id number] [place] [address] 142850- 7312 Jul, [facility] [id number] [place] [address] [place] [address]- [address] Jul, [facility] [place] [facility] [address] [id number] [place] [address]- 3382 Jul, [facility] [place] [facility] [address] [id number] [place] [address]- 0013 Jul, [facility] [place] [facility] [address] [id number] [place] [address]- 9325 Jun, [facility] [place] [facility] [address] [id number] [place] [address]- 4327 Jun, [facility] [place] [facility] [address] [id number] [place] [address]- 3139 Jun, [facility] [place] [facility] [address] [id number] [place] [address]- 2108 May, [facility] [place] [facility] [address] [id number] [place] [address]- 3806 May, [facility] [place] [facility] [address] [id number] [place] [address]- 7323 May, [facility] [place] [facility] [address] [id number] [place] [address]- 2774 May, [facility] [place] [facility] [address] [id number] [place] [address]- 4347 Apr, [facility] [place] [facility] [address] [id number] [place] [address]- 4426 Apr, [facility] [place] [facility] [address] [id number] [place] [address]- 6756 Apr, [facility] [place] [facility] [address] [id number] [place] [address]- 2858 Apr, [facility] [place] [facility] [address] [id number] [place] [address]- 1689 Mar, [facility] [place] [facility] [address] [id number] [place] [address]- 6080 Mar, [facility] [place] [facility] [address] [id number] [place] [address]- 9734 Mar, [facility] [address] [id number] [place] [address]- 3212 February, [facility] [address] [id number] [place] [address]- 6096 February, [facility] [address] [id number] [place] [address]- 1400 February, [facility] [address] [id number] [place] [address]- 4778 February, [facility] [address] [id number] [place] [address]- 3068 February, [facility] [address] [id number] [place] [address]- 2416 February, [facility] [address] [id number] [place] [address]- 0772 Jan, [facility] [address] [id number] [place] [address]- 1003 Jan, [facility] [address] [id number] [place] [address]- 2805 Dec, [facility] [address] [id number] [place] [address]- 8767 Dec, [facility] [address] [id number] [place] [address]- 6181 Dec, [facility] [place] [facility] [address] [id number] [place] [address]- 4441 Dec, [facility] [place] [facility] [address] [id number] [place] [address]- 2693 Dec, [facility] [place] [facility] [address] [id number] [place] [address]- 0772 Nov, [facility] [place] [facility] [address] [id number] [place] [address]- 0117 13 Nov, 2012 [facility] [address] [id number] [place] [address]- 3627 12 Nov, 2012 [facility] [place] [facility] [address] [id number] [place] [address]- 9926 07 Nov, 2012 [facility] [address] [id number] [place] [address]- 1196 Nov, [facility] [address] [id number] [place] [address]- 1396 Oct, [facility] [address] [id number] [place] [address]- 4222 Oct, [facility] [address] [id number] [place] [address]- 1085 Sep, [facility] [address] [id number] [place] [address]- 9406 Sep, [facility] [address] [id number] [place] [address]- 8996 Sep, [facility] [address] [id number] [place] [address]- 6068 Sep, [facility] [address] [id number] [place] [address]- 3871 Sep, [facility] [address] [id number] [place] [address]- 4898 Sep, [facility] [place] [facility] [address] [id number] [place] [address]- 9076 Sep, [facility] [place] [facility] [address] [id number] [place] [address] Sep, [facility] [place] [facility] [address] [id number] [place] [address]- 9876 Aug, [facility] [place] [facility] [address] [id number] [place] [address] Aug, [facility] [place] [facility] [address] [id number] [place] [address]- 5270 15 Aug, 2012 [facility] [place] [facility] [address] [id number] [place] [address]- 3061 Aug, [facility] [place] [facility] [address] [id number] [place] [address]- 1794 Aug, [facility] [place] [facility] [address] [id number] [place] [address]- 0000 Aug, [facility] [place] [facility] [address] [id number] [place] [address]- 3629 Aug, [facility] [place] [facility] [address] [id number] [place] [address]- 5612 Jul, [facility] [place] [facility] [address] [id number] [place] 1574 Jul, [facility] [place] [facility] [address] [id number] [place] [address]- 6951 Jul, [facility] [place] [facility] [address] [id number] [place] [address]- 2601 Jul, [facility] [place] [facility] [address] [id number] [place] [address]- 3950 Jul, [facility] [place] [facility] [address] [facility] [id number] [place] 0283 Jul, [facility] [place] [facility] [address] [id number] [place] [address]- 2334 Jul, [facility] [place] [facility] [address] [id number] [place] [address]- 0331 18 Jun, 2012 [facility] [place] [facility] [address] [id number] [place] [address]- 4391 06 Jun, 2012 [facility] [place] [facility] [address] [id number] [place] [address] 2546 05 Jun, 2012 [facility] [place] [facility] [address] [id number] [place] [address]- 9866 May, [facility] [address] [id number] [place] [address]- 2146 May, [facility] [place] [facility] [address] [id number] [place] [address]- 3762 Apr, [facility] [place] [facility] [address] [id number] [place] [address]- 9001 Apr, [facility] [place] [facility] [address] [id number] [place] [address]- 9240 Mar, [facility] [place] [facility] [address] [id number] [place] [address]- 6788 February, [facility] [place] [facility] [address] [id number] [place] [address]- 4160 February, [facility] [place] [facility] [address] [id number] [place] [address]- 6852 February, [facility] [place] [facility] [address] [id number] [place] [address]- 4665 February, [facility] [place] [facility] [address] [id number] [place] [address]- 5009 February, [facility] [place] [facility] [address] [id number] [place] [address]- 4272 February, [facility] [place] [facility] [address] [id number] [place] [address]- 1716 February, [facility] [place] [facility] [address] [id number] [place] [address]- 4877 Jan, [facility] [place] [facility] [address] [id number] [place] [address]- 8191 Dec, [facility] [place] [facility] [address] [id number] [place] [address]- 5322 Dec, [facility] [place] [facility] [address] [id number] [place] [address]- 1771 Oct, [facility] [place] [facility] [address] [id number] [place] [address]- 3547 Oct, [facility] [address] [id number] [place] [address]- 7743 Oct, [facility] [address] [id number] [place] [address]- 6403 Oct, [facility] [address] [id number] [place] [address]- 6186 Oct, [facility] [place] [facility] [address] [id number] [place] [address]- 6956 Oct, [facility] [address] [id number] [place] [address]- 7612 Oct, [facility] [address] [id number] [place] [address]- 6003 Oct, [facility] [address] [id number] [place] [address]- 3182 Oct, [facility] [address] [id number] [place] [address]- 8698 30 Sep, 2011 [facility] [address] [id number] [place] [address]- 1277 Sep, [facility] [address] [id number] [place] [address]- 5040 Sep, [facility] [address] [id number] [place] [address]- 3191 Sep, [facility] [place] [facility] [address] [id number] [place] [address]- 0158 Sep, [facility] [place] [facility] [address] [id number] [place] [address]- 0756 Sep, [facility] [place] [facility] [address] [id number] [place] 9880 Sep, [facility] [place] [facility] [address] [id number] [place] [address]- 0537 Sep, [facility] [place] [facility] [address], [place] [address]- 1456 Sep, [facility] [address], [place] [address]- 7633 Sep, [facility] [address], [place] [address]- 4774 Aug, [facility] [address] [place] [address] 97961- 7619 Jul, [facility] [address], [place] [address]- 1169 Sep, [facility] [address] [place] [address] 08814- 2655 Aug, [facility] [id number] [address]- 6200 Aug, [facility] [id number] [place] [address] 76670- 3456 Aug, [facility] [address], [place] [address]- 1459 Aug, [facility] [address] [place] [address] 19590- 9311 Jul, [facility] [address], [place] [address]- 9265 Jul, [facility] [address], [place] [address]- 0852 Jul, IMMUNIZATIONS No Known Immunizations SOCIAL HISTORY Never Assessed REASON FOR VISIT Controlled Med Refill 06/28 PLAN OF CARE VITAL SIGNS MEDICATIONS Medication Instructions Dosage Frequency Start Date End Date Duration Status Oxycodone-Acetaminophen 10-325 MG Orally 3 times a day 1 tablet as needed 8h Jun, 28 days Active MS Contin 30 MG Orally every 12 hrs 1 tablet 12h Jun, 28 days Active RESULTS No Results [...]
--- OUTSIDE RECORDS SUMMARY | 2018-11-21 09:32 | XMS REPORT ---
Author Author NEERU CANO [facility] Address [address] [place] [address] Care Team Providers Care Box Liner Name Role Phone NEERU CANO Unavailable PROBLEMS Type Condition ICD9-CM Code [id number] Code Onset Dates Condition Status SNOMED Code Problem Dysthymia F34.1 Active 49007669 Problem Esophageal dysphagia R13.10 Active 62984337 Problem Gastroesophageal reflux disease, esophagitis presence not specified K21.9 Active 377890362 Problem Lumbar radiculopathy M54.16 Active 012668789 Problem Other chronic pain G89.29 Active 46825486 Problem Chronic obstructive pulmonary disease, unspecified COPD type J44.9 Active 79518120 Problem History of anemia Z86.2 Active 170596644 Problem Chronic pain due to trauma G89.21 Active 392799873 Problem Atrophic gastritis without hemorrhage K29.40 Active 89201265 Problem Acute allergic rhinitis, unspecified seasonality, unspecified trigger J30.9 Active 49256801 ALLERGIES Substance Reaction Event Type Date Status Penicillin G Sodium Unknown Drug Allergy Mar, Active ENCOUNTERS Encounter Location Date Diagnosis [place] [id number] [place] [address] 86193- 3077 May, Atrophic gastritis without hemorrhage K29.40 and Chronic pain due to trauma G89.21 [facility] [id number] [place] [address] 68597- 7858 Apr, Strain of neck muscle, subsequent encounter S16.1XXD and Lumbar radiculopathy M54.16 [facility] [id number] [place] [address] 66925- 6640 Apr, Atrophic gastritis without hemorrhage K29.40 and Chronic pain due to trauma G89.21 [facility] [id number] [place] [address] 21248- 9157 Mar, Chronic pain due to trauma G89.21 ; Lumbar radiculopathy M54.16 ; Dysthymia F34.1 ; Pain in right shoulder M25.511 ; Pain in left shoulder M25.512 ; Other chronic pain G89.29 and Chronic obstructive pulmonary disease, unspecified COPD type J44.9 [place] [address] [address]- 8290 14 Mar, 2018 Chronic pain due to trauma G89.21 and Atrophic gastritis without hemorrhage K29.40 [place] [address] 04850- 4522 February, Chronic pain due to trauma G89.21 and Atrophic gastritis without hemorrhage K29.40 [place] [address] 03256- 7052 Jan, Chronic pain due to trauma G89.21 and Atrophic gastritis without hemorrhage K29.40 [place] [address] 02405- 4039 Jan, Atrophic gastritis without hemorrhage K29.40 [place] [address] 15693- 5472 Dec, Atrophic gastritis without hemorrhage K29.40 and Chronic pain due to trauma G89.21 [place] [address] 64724- 9678 Dec, Chronic pain due to trauma G89.21 and Lumbar radiculopathy M54.16 [place] [address] 12706- 5794 Dec, Lumbar radiculopathy M54.16 [place] [address] 28098- 0172 Dec, [place] [address] 25315- 4769 Nov, Chronic pain due to trauma G89.21 [place] [address] 11383- 5880 Nov, BMI 40.0-44.9, adult Z68.41 ; Lumbar radiculopathy M54.16 and Dysthymia F34.1 [facility] [id number] [place] [address] 60086- 6723 13 Nov, 2017 [facility] [id number] [place] [address] 58382- 5909 Nov, [facility] [address] 94036- 3303 Oct, [facility] [id number] [place] [address] 45768- 0387 Oct, Chronic pain due to trauma G89.21 ; Gastroesophageal reflux disease, esophagitis presence not specified K21.9 ; Dysthymia F34.1 ; Lumbar radiculopathy M54.16 ; Esophageal dysphagia R13.10 and BMI 40.0-44.9, adult Z68.41 [facility] [id number] [place] [address] 64446 -2164 Sep, History of anemia Z86.2 and Acute allergic rhinitis, unspecified seasonality, unspecified trigger J30.9 [facility] [id number] [place] [address] 09870- 6873 05 Sep, 2017 [facility] [id number] [place] [address] 30953- 9374 14 Jul, 2016 [facility] [id number] [place] [address] 40371- 0532 14 Jan, 2015 [facility] [id number] [place] [address] 22990- 0769 Jan, [facility] [id number] [place] [address] 17687- 4300 Nov, [facility] [id number] [place] [address] 82181- 6611 Nov, [facility] [id number] [place] [address] 0894 Oct, [facility] [address] [id number] [place] [address]- 6085 Aug, [facility] [place] [facility] [address] [id number] [place] [address]- 5874 Aug, [facility] [address] [id number] [place] [address]- 1065 Jul, [facility] [place] [facility] [address] [id number] [place] [address]- 9255 Jul, [facility] [address] [id number] [place] [address]- 4994 Jul, [facility] [address] [id number] [place] [address]- 4414 Jul, [facility] [address] [id number] [place] [address]- 5347 Jul, [facility] [address] [id number] [place] [address]- 9766 24 Jun, 2013 [facility] [place] [facility] [address] [id number] [place] [address]- 5022 16 Jun, 2013 [facility] [address] [id number] [place] [address]- 9840 Jun, [facility] [place] [facility] [address] [id number] [place] [address]- 1951 May, [facility] [place] [facility] [address] [id number] [place] [address]- 2806 May, [facility] [place] [facility] [address] [id number] [place] [address]- 2469 May, [facility] [place] [facility] [address] [id number] [place] [address]- 5471 May, [facility] [place] [facility] [address] [id number] [place] [address]- 9294 Apr, [facility] [place] [facility] [address] [id number] [place] [address] 2549 Apr, [facility] [address] [id number] [place] [address]- 7228 Apr, [facility] [address] [id number] [place] [address]- 2548 Apr, [facility] [place] [facility] [address] [id number] [place] [address]- 2546 Mar, [facility] [address] [id number] [place] [address]- 2544 Mar, [facility] [place] [facility] [address] [id number] [place] [address]- 7854 Mar, [facility] [address] [id number] [place] [address]- 9098 February, [facility] [address] [id number] [place] [address]- 7097 February, [facility] [address] [id number] [place] [address]- 9221 February, [facility] [address] [id number] [place] [address]- 8047 February, [facility] [place] [facility] [address] [id number] [place] [address]- 2546 February, [facility] [place] [facility] [address] [id number] [place] [address]- 2546 February, [facility] [place] [facility] [address] [id number] [place] [address]- 5492 Jan, [facility] [place] [facility] [address] [id number] [place] [address]- 2546 Jan, [facility] [place] [facility] [address] [id number] [place] [address]- 2545 Dec, [facility] [place] [facility] [address] [id number] [place] [address]- 2992 Dec, [facility] [address] [id number] [place] [address]- 5036 Dec, [facility] [place] [facility] [address] [id number] [place] [address]- 9486 05 Dec, 2012 [facility] [address] [id number] [place] [address]- 5206 Dec, [facility] [place] [facility] [address] [id number] [place] [address]- 6232 Nov, [facility] [place] [facility] [address] [id number] [place] [address]- 6576 Nov, [facility] [place] [facility] [address] [id number] [place] [address]- 9746 Nov, [facility] [address] [id number] [place] [address]- 1539 07 Nov, 2012 [facility] [address] [id number] [place] [address]- 0377 Nov, [facility] [address] [id number] [place] [address]- 6590 Oct, [facility] [address] [id number] [place] [address]- 3352 Oct, [facility] [address] [id number] [place] [address]- 0691 Sep, [facility] [place] [facility] [address] [id number] [place] [address] 2549 Sep, [facility] [place] [facility] [address] [id number] [place] [address]- 0735 Sep, [facility] [place] [facility] [address] [id number] [place] [address]- 0846 Sep, [facility] [address] [id number] [place] [address]- 4437 Sep, [facility] [place] [facility] [address] [id number] [place] [address]- 1377 Sep, [facility] [place] [facility] [address] [id number] [place] [address]- 8899 Sep, [facility] [place] [facility] [address] [id number] [place] [address]- 0434 Sep, [facility] [place] [facility] [address] [id number] [place] [address]- 8478 Aug, [facility] [place] [facility] [address] [id number] [place] [address]- 8042 Aug, [facility] [place] [facility] [address] [id number] [place] [address]- 5331 Aug, [facility] [place] [facility] [address] [id number] [place] [address]- 6944 Aug, [facility] [place] [facility] [address] [id number] [place] [address]- 4581 Aug, [facility] [place] [facility] [address] [id number] [place] [address]- 5672 Aug, [facility] [place] [facility] [address] [id number] [place] [address]- 8952 Aug, [facility] [place] [facility] [address] [facility] [id number] [place] [address]- 5228 Jul, [facility] [place] [facility] [address] [id number] [place] [address]- 8480 Jul, [facility] [place] [facility] [address] [id number] [place] [address]- 6870 Jul, [facility] [place] [facility] [address] [id number] [place] [address]- 9756 Jul, [facility] [place] [facility] [address] [id number] [place] [address]- 8391 Jul, [facility] [place] [facility] [address] [id number], [place] [address]- 0686 Jul, [facility] [place] [facility] [address] [id number] [place] [address] 2546 Jul, [facility] [place] [facility] [address] [id number] [place] [address]- 2546 Jun, [facility] [place] [facility] [address] [id number] [place] [address]- 2546 Jun, [facility] [place] [facility] [address] [id number] [place] [address]- 2546 05 Jun, 2012 [facility] [place] [facility] [address] [id number] [place] [address]- 2546 May, [facility] [place] [facility] [address] [id number] [place] [address] 2546 May, [facility] [place] [facility] [address] [id number] [place] [address]- 2546 Apr, [facility] [place] [facility] [address] [id number] [place] [address] 2546 Apr, [facility] [place] [facility] [address] [id number] [place] [address]- 0985 Mar, [facility] [place] [facility] [address] [id number] [place] [address] 2546 February, [facility] [place] [facility] [address] [id number] [place] [address] 2546 February, [facility] [place] [facility] [address] [id number], [place] [address]- 2546 February, [facility] [place] [facility] [address] [id number] [place] [address]- 2546 February, [facility] [place] [facility] [address] [id number] [place] [address]- 2546 February, [facility] [place] [facility] [address] [id number] [place] [address]- 2546 February, [facility] [place] [facility] [address] [id number] [place] [address]- 3806 February, [facility] [address] [id number] [place] [address]- 3010 Jan, [facility] [address] [id number] [place] [address]- 6086 Dec, [facility] [address] [id number] [place] [address]- 5996 Dec, [facility] [address] [id number] [place] [address]- 8717 Oct, [facility] [address] [id number] [place] [address]- 6737 Oct, [facility] [address] [id number] [place] [address]- 2956 Oct, [facility] [address] [id number] [place] [address]- 5740 Oct, [facility] [address] [id number] [place] [address]- 7412 Oct, [facility] [address] [id number] [place] [address]- 9940 Oct, [facility] [address] [id number] [place] [address]- 1089 Oct, [facility] [address] [id number] [place] [address]- 3666 Oct, [facility] [address] [id number] [place] [address]- 4275 Oct, [facility] [address] [id number] [place] [address]- 7986 Sep, [facility] [address] [id number] [place] [address]- 0296 Sep, [facility] [address] [id number] [place] [address]- 9730 Sep, [facility] [place] [facility] [address] [id number] [place] [address]- 6941 Sep, [facility] [place] [facility] [address] [id number] [place] [address]- 0407 Sep, [facility] [place] [facility] [address] [id number] [place] [address]- 9315 Sep, [facility] [place] [facility] [address] [id number] [place] [address]- 3309 Sep, [facility] [place] [facility] [address] [id number] [place] [address]- 3663 Sep, [facility] [place] [facility] [address] [id number] [place] [address]- 2559 13 Sep, 2011 [facility] [place] [facility] [address] [id number] [place] [address]- 6035 05 Sep, 2011 [facility] [place] [facility] [address] [id number], [place] [address]- 5863 15 Aug, 2011 [facility] [place] [facility] [address] [id number] [place] [address]- 2671 18 Jul, 2011 [facility] [place] [facility] [address] [facility] [id number], [place] [address]- 2766 09 Sep, 2010 [facility] [place] [facility] [address] [id number], [place] [address]- 1775 15 Aug, 2010 [facility] [place] [facility] [address] [id number], [place] [address]- 0402 11 Aug, 2010 [facility] [place] [facility] [address] [id number], [place] [address]- 2933 Aug, [facility] [place] [facility] [address] [id number], [place] [address]- 3079 03 Aug, 2010 [facility] [place] [facility] [address] [id number], [place] [address]- 9180 29 Jul, 2010 [facility] [place] [facility] [address] [id number], [place] [address]- 8168 Jul, [facility] [address] [facility] [id number] [place] [address]- 0915 Jul, IMMUNIZATIONS No Known Immunizations SOCIAL HISTORY Never Assessed REASON FOR VISIT [facility] PT has been having sever left hip and leg pain. Possible referal to see Shaji MCCORMICK, PHQ2, AUDIT C, PDM PLAN OF CARE Activity Details Follow Up 3 Months Reason: VITAL SIGNS Height 58.5 in 2018-04-05 Weight 185.2 lbs 2018-04-05 Temperature 98.2 degrees Fahrenheit 2018-04-05 Heart Rate 82 bpm 2018-04-05 Respiratory Rate 18 2018-04-05 BMI 38.04 kg/m2 2018-04-05 Blood pressure systolic 110 mmHg 2018-04-05 Blood pressure diastolic 72 mmHg 2018-04-05 MEDICATIONS Medication Instructions Dosage Frequency Start Date End Date Duration Status Simvastatin 20 MG Orally at bedtime 1 tablet Active Lexapro 20 mg Orally Once a day 1 tablet 24h 90 days Active Vitamin B Complex-C - Orally daily 150 mg 24h Active Pantoprazole Sodium 40 mg Orally Once a day 1 tablet 24h 30 days Active Gabapentin 600 MG Orally 3 times a day 1 tablet 8h Jun, 90 days Active Oxycodone-Acetaminophen 10-325 MG Orally 3 times a day 1 tablet as needed 8h February, 28 days Active Rosuvastatin Calcium 10 mg Orally [...] Orally 1 and 3 1 tablet Active Furosemide 40 mg Orally Once a day 1 tablet 24h 90 days Active Colace 100 MG Orally Once a day 1 capsule as needed 24h Active BusPIRone HCl 5 mg Orally Twice a day, prn panic feeling 1 tablet Nov Active MS Contin 30 MG Orally every 12 hrs 1 tablet 12h February, 28 days Active Ergocalciferol 12571 UNIT Orally once weekly 1 capsule Active Potassium Chloride ER 20 meq Orally Once a day 1 tablet with food 24h Dec, 90 days Active RESULTS No Results PROCEDURES Procedure Date Ordered Result Body Site LAB NOT BILLED BY [facility] April 05, 2018 [facility] VISIT ESTABLISHED PATIENT April 05, 2018 INSTRUCTIONS MEDICATIONS ADMINISTERED No Known [...]
--- OUTSIDE RECORDS SUMMARY | 2018-11-21 09:32 | XMS REPORT ---
Author Author NEERU CANO [facility] Address [address] [place] [address] Care Team Providers Care Animal Eviscerator Name Role Phone NEERU CANO Unavailable PROBLEMS Type Condition ICD9-CM Code UDB08-VF Code Onset Dates Condition Status SNOMED Code Problem Dysthymia F34.1 Active 53285301 Problem Esophageal dysphagia R13.10 Active 64453519 Problem Gastroesophageal reflux disease, esophagitis presence not specified K21.9 Active 488498470 Problem Lumbar radiculopathy M54.16 Active 129702428 Problem Other chronic pain G89.29 Active 80253580 Problem Chronic obstructive pulmonary disease, unspecified COPD type J44.9 Active 30732357 Problem History of anemia Z86.2 Active 462632482 Problem Chronic pain due to trauma G89.21 Active 068067941 Problem Atrophic gastritis without hemorrhage K29.40 Active 84408412 Problem Acute allergic rhinitis, unspecified seasonality, unspecified trigger J30.9 Active 30063288 ALLERGIES No Information ENCOUNTERS Encounter Location Date Diagnosis [place] [id number] [place] [address]- [address]01 May, Atrophic gastritis without hemorrhage K29.40 and Chronic pain due to trauma G89.21 [facility] [id number] [place] [address] 39122- 7112 13 Apr, 2018 Strain of neck muscle, subsequent encounter S16.1XXD and Lumbar radiculopathy M54.16 [facility] [address] [address]- [address] Apr, Atrophic gastritis without hemorrhage K29.40 and Chronic pain due to trauma G89.21 [facility] [id number] [place] [address] 20568- 1320 14 Mar, 2018 Chronic pain due to trauma G89.21 ; Lumbar radiculopathy M54.16 ; Dysthymia F34.1 ; Pain in right shoulder M25.511 ; Pain in left shoulder M25.512 ; Other chronic pain G89.29 and Chronic obstructive pulmonary disease, unspecified COPD type J44.9 [place] [address] [address]- [address] 14 Mar, 2018 Chronic pain due to trauma G89.21 and Atrophic gastritis without hemorrhage K29.40 [place] [address] 9[address]- 9568 February, Chronic pain due to trauma G89.21 and Atrophic gastritis without hemorrhage K29.40 [place] [address] [place] [address] [address] Jan, Chronic pain due to trauma G89.21 and Atrophic gastritis without hemorrhage K29.40 [place] [address] 29582- 9758 Jan, Atrophic gastritis without hemorrhage K29.40 [place] [address] 80[address]- 7193 Dec, Atrophic gastritis without hemorrhage K29.40 and Chronic pain due to trauma G89.21 [place] [address] 03434- 3437 Dec, Chronic pain due to trauma G89.21 and Lumbar radiculopathy M54.16 [place] [address] 39765- 9246 Dec, Lumbar radiculopathy M54.16 [place] [address] 82457- 4137 Dec, [place] [address] 17649- 6148 Nov, Chronic pain due to trauma G89.21 [place] [address] 31579- 5795 Nov, BMI 40.0-44.9, adult Z68.41 ; Lumbar radiculopathy M54.16 and Dysthymia F34.1 [facility] [id number] [place] [address] 33397- 2819 13 Nov, 2017 [facility] [id number] [place] [address] 27934- 3323 Nov, [facility] [address] 6[address]80- 4016 Oct, [facility] [address] 7[address]15- 8719 Oct, Chronic pain due to trauma G89.21 ; Gastroesophageal reflux disease, esophagitis presence not specified K21.9 ; Dysthymia F34.1 ; Lumbar radiculopathy M54.16 ; Esophageal dysphagia R13.10 and BMI 40.0-44.9, adult Z68.41 [facility] [id number] [place] [address]53 -6738 Sep, History of anemia Z86.2 and Acute allergic rhinitis, unspecified seasonality, unspecified trigger J30.9 [facility] [id number] [place] [address] 87630- 7389 05 Sep, 2017 [facility] [id number] [place] [address] 60967- 8911 14 Jul, 2016 [facility] [id number] [place] [address] 47842- 0494 14 Jan, 2015 [facility] [id number] [place] [address] 81080- 7232 Jan, [facility] [address] 49691- 0430 Nov, [facility] [id number] [place] [address] 92204- 3592 Nov, [facility] [address] 18987- 5970 Oct, [facility] [place] [facility] [address] [id number] [place] [address]- 5530 Aug, [facility] [place] [facility] [address] [id number] [place] [address]- 6100 Aug, [facility] [place] [facility] [address] [id number] [place] [address]- 4843 Jul, [facility] [place] [facility] [address] [id number] [place] [address]- 4157 Jul, [facility] [place] [facility] [address] [id number] [place] [address]- 4181 Jul, [facility] [place] [facility] [address] [id number] [place] [address]- 7806 Jul, [facility] [place] [facility] [address] [id number] [place] [address]- 6371 Jul, [facility] [place] [facility] [address] [id number] [place] [address]- 8438 Jun, [facility] [place] [facility] [address] [id number] [place] [address]- 9576 16 Jun, 2013 [facility] [place] [facility] [address] [id number] [place] [address]- 9788 Jun, [facility] [place] [facility] [address] [id number], [place] [address] 7733 May, [facility] [place] [facility] [address] [id number], [place] [address]- 6239 May, [facility] [place] [facility] [address] [id number] [place] [address]- 5840 May, [facility] [place] [facility] [address] [id number], [place] [address]- 9828 May, [facility] [place] [facility] [address] [id number] [place] [address]- 5774 Apr, [facility] [place] [facility] [address] [id number] [place] [address] 2541 Apr, [facility] [address] [id number] [place] [address]- 7625 Apr, [facility] [address] [id number] [place] [address] 2546 Apr, [facility] [address] [id number] [place] [address]- 0826 Mar, [facility] [address] [id number] [place] [address] 2542 Mar, [facility] [address] [id number] [place] [address]- 6627 Mar, [facility] [address] [id number] [place] [address]- 6696 February, [facility] [address] [id number] [place] [address]- 9754 February, [facility] [address] [id number] [place] [address]- 5451 February, [facility] [address] [id number] [place] [address]- 0901 February, [facility] [address] [id number] [place] [address]- 7666 February, [facility] [address] [id number] [place] [address]- 9436 February, [facility] [address] [id number] [place] [address]- 2542 Jan, [facility] [place] [facility] [address] [id number] [place] [address]- 7830 Jan, [facility] [place] [facility] [address] [id number] [place] [address]- 2546 Dec, [facility] [address] [id number] [place] [address]- 2412 Dec, [facility] [address] [id number] [place] [address]- 0104 06 Dec, 2012 [facility] [place] [facility] [address] [id number] [place] [address]- 3964 05 Dec, 2012 [facility] [place] [facility] [address] [id number] [place] [address]- 4320 04 Dec, 2012 [facility] [place] [facility] [address] [id number] [place] [address]- 1638 Nov, [facility] [place] [facility] [address] [id number] [place] [address]- 4386 Nov, [facility] [place] [facility] [address] [id number] [place] [address]- 3743 Nov, [facility] [place] [facility] [address] [id number] [place] [address]- 0318 Nov, [facility] [place] [facility] [address] [id number] [place] [address]- 6211 Nov, [facility] [place] [facility] [address] [id number] [place] [address]- 7506 Oct, [facility] [place] [facility] [address] [id number] [place] [address]- 3255 Oct, [facility] [place] [facility] [address] [id number] [place] [address]- 8335 Sep, [facility] [place] [facility] [address] [id number] [place] [address]- 2454 Sep, [facility] [place] [facility] [address] [id number] [place] [address]- 9260 Sep, [facility] [place] [facility] [address] [id number] [place] [address]- 5805 Sep, [facility] [place] [facility] [address] [id number] [place] [address]- 5515 Sep, [facility] [place] [facility] [address] [id number], [place] [address]- 5223 Sep, [facility] [place] [facility] [address] [id number] [place] [address]- 2853 Sep, [facility] [place] [facility] [address] [facility] [id number], [place] [address]- 9514 Sep, [facility] [place] [facility] [address] [facility] [id number] [place] [address]- 7524 Aug, [facility] [place] [facility] [address] [facility] [id number], [place] [address]- 8176 Aug, [facility] [place] [facility] [id number] [place] [address], [place] [address]- 1767 Aug, [facility] [place] [facility] [address] [facility] [id number], [place] [address]- 4418 Aug, [facility] [place] [facility] [id number] [place] [address] 98265- 5612 Aug, [facility] [place] [facility] [address] [id number], [place] [address]- 9774 Aug, [facility] [place] [facility] [address] [id number], [place] [address]- 5984 Aug, [facility] [place] [facility] [address] [id number], [place] [address]- 2011 Jul, [facility] [place] [facility] [address] [facility] [id number], [place] [address]- 6456 Jul, [facility] [place] [facility] [address] [facility] [id number], [place] [address]- 8482 Jul, [facility] [place] [facility] [address] [facility] [id number], [place] [address]- 9475 Jul, [facility] [place] [facility] [address] [facility] [id number], [place] [address]- 1579 Jul, [facility] [place] [facility] [address] [id number], [place] [address]- 2257 Jul, [facility] [place] [facility] [address] [id number] [place] [address]- 2546 Jul, [facility] [place] [facility] [address] [id number] [place] [address] 2546 Jun, [facility] [place] [facility] [address] [id number] [place] [address]- 2546 Jun, [facility] [place] [facility] [address] [id number] [place] [address]- 2546 Jun, [facility] [place] [facility] [address] [id number] [place] [address]- 2546 May, [facility] [place] [facility] [address] [id number] [place] [address]- 2546 May, [facility] [place] [facility] [address] [id number] [place] [address]- 2546 Apr, [facility] [place] [facility] [address] [id number] [place] [address]- 2546 Apr, [facility] [place] [facility] [address] [id number] [place] [address]- 6845 Mar, [facility] [place] [facility] [address] [id number] [place] [address]- 8706 February, [facility] [place] [facility] [address] [id number] [place] [address]- 2546 February, [facility] [place] [facility] [address] [id number] [place] [address]- 2546 February, [facility] [place] [facility] [address] [id number] [place] [address]- 2546 February, [facility] [place] [facility] [address] [id number] [place] [address]- 2546 February, [facility] [place] [facility] [address] [id number] [place] [address]- 2546 February, [facility] [place] [facility] [address] [id number] [place] [address]- 9618 February, [facility] [address] [id number] [place] [address]- 8280 Jan, [facility] [place] [facility] [address] [id number] [place] [address]- 3186 Dec, [facility] [address] [id number] [place] [address]- 0265 Dec, [facility] [address] [id number] [place] [address]- 3280 Oct, [facility] [address] [id number] [place] [address]- 3731 Oct, [facility] [address] [id number] [place] [address]- 6117 Oct, [facility] [address] [id number] [place] [address]- 9012 Oct, [facility] [place] [facility] [address] [id number] [place] [address]- 2211 Oct, [facility] [address] [id number] [place] [address]- 7638 Oct, [facility] [place] [facility] [address] [id number] [place] [address]- 5220 Oct, [facility] [address] [id number], [place] [address]- 6656 Oct, [facility] [place] [facility] [address] [id number], [place] [address]- 0288 Oct, [facility] [place] [facility] [address] [id number] [place] [address]- 8287 Sep, [facility] [place] [facility] [address] [id number] [place] [address]- 8826 Sep, [facility] [place] [facility] [address] [id number] [place] [address]- 7366 Sep, [facility] [place] [facility] [address] [id number] [place] [address]- 5612 21 Sep, 2011 [facility] [place] [facility] [address] [id number] [place] [address]- 5290 20 Sep, 2011 [facility] [place] [facility] [address] [id number] [place] [address]- 3526 19 Sep, 2011 [facility] [place] [facility] [address] [id number] [place] [address] 2546 19 Sep, 2011 [facility] [place] [facility] [address] [id number] [place] [address] 2548 19 Sep, 2011 [facility] [place] [facility] [address] [id number] [place] [address]- 0413 13 Sep, 2011 [facility] [place] [facility] [address] [id number] [place] [address]- 7103 05 Sep, 2011 [facility] [place] [facility] [address] [facility] [id number] [place] [address]- 8185 15 Aug, 2011 [facility] [place] [facility] [address] [id number] [place] [address]- 7093 18 Jul, 2011 [facility] [place] [facility] [address] [id number] [place] [address]- 0898 09 Sep, 2010 [facility] [place] [facility] [address] [facility] [id number] [place] [address]- 3816 15 Aug, 2010 [facility] [place] [facility] [address] [id number] [place] [address]- 2632 11 Aug, 2010 [facility] [place] [facility] [address] [id number] [place] [address]- 2548 11 Aug, 2010 [facility] [place] [facility] [address] [id number] [place] [address]- 1052 03 Aug, 2010 [facility] [place] [facility] [address] [facility] [id number] [place] [address]- 2547 29 Jul, 2010 [facility] [place] [facility] [address] [id number] [place] [address]- 0526 Jul, [facility] [address] [facility] [id number] [place] [address]- 8967 Jul, IMMUNIZATIONS No Known Immunizations SOCIAL HISTORY Never Assessed REASON FOR VISIT Oxycontin and MS contin due 05/03 PLAN OF CARE VITAL SIGNS MEDICATIONS Medication Instructions Dosage Frequency Start Date End Date Duration Status MS Contin 30 MG Orally every 12 hrs 1 tablet 12h Apr, 28 days Active Oxycodone-Acetaminophen 10-325 MG Orally 3 times a day 1 tablet as needed 8h Apr, 28 days Active RESULTS No Results PROCEDURES [...]
--- OUTSIDE RECORDS SUMMARY | 2018-11-21 09:32 | XMS REPORT ---
Author Author NEERU CANO [facility] Address [address] [place] [address] Care Team Providers Care Security Administrator Name Role Phone NEERU CANO Unavailable PROBLEMS Type Condition ICD9-CM Code ZDB91-YW Code Onset Dates Condition Status SNOMED Code Problem Dysthymia F34.1 Active 40845605 Problem Esophageal dysphagia R13.10 Active 73226694 Problem Gastroesophageal reflux disease, esophagitis presence not specified K21.9 Active 635602171 Problem Lumbar radiculopathy M54.16 Active 751046295 Problem Other chronic pain G89.29 Active 03447188 Problem Chronic obstructive pulmonary disease, unspecified COPD type J44.9 Active 94880606 Problem History of anemia Z86.2 Active 133544946 Problem Chronic pain due to trauma G89.21 Active 034900004 Problem Atrophic gastritis without hemorrhage K29.40 Active 31539641 Problem Acute allergic rhinitis, unspecified seasonality, unspecified trigger J30.9 Active 31721056 ALLERGIES No Information ENCOUNTERS Encounter Location Date Diagnosis [place] [id number] [place] [address]89- [address]194 May, Atrophic gastritis without hemorrhage K29.40 and Chronic pain due to trauma G89.21 [facility] [id number] [place] [address] 82365- 8895 13 Apr, 2018 Strain of neck muscle, subsequent encounter S16.1XXD and Lumbar radiculopathy M54.16 [facility] [address] [address]- [address] Apr, Atrophic gastritis without hemorrhage K29.40 and Chronic pain due to trauma G89.21 [facility] [id number] [place] [address] 21761- 0638 14 Mar, 2018 Chronic pain due to trauma G89.21 ; Lumbar radiculopathy M54.16 ; Dysthymia F34.1 ; Pain in right shoulder M25.511 ; Pain in left shoulder M25.512 ; Other chronic pain G89.29 and Chronic obstructive pulmonary disease, unspecified COPD type J44.9 [place] [address] [address]- [address]65 14 Mar, 2018 Chronic pain due to trauma G89.21 and Atrophic gastritis without hemorrhage K29.40 [place] [address] [address]- 2297 February, Chronic pain due to trauma G89.21 and Atrophic gastritis without hemorrhage K29.40 [place] [address] [place] [address]- [address] Jan, Chronic pain due to trauma G89.21 and Atrophic gastritis without hemorrhage K29.40 [place] [address] [address]- [address]86 Jan, Atrophic gastritis without hemorrhage K29.40 [place] [address] 27353- 5753 Dec, Atrophic gastritis without hemorrhage K29.40 and Chronic pain due to trauma G89.21 [place] [address] 20732- 7491 Dec, Chronic pain due to trauma G89.21 and Lumbar radiculopathy M54.16 [place] [address] 46648- 6944 Dec, Lumbar radiculopathy M54.16 [place] [address] 0[address]15- 0616 Dec, [place] [address] 82997- 9163 Nov, Chronic pain due to trauma G89.21 [place] [address] [address]40- 5579 Nov, BMI 40.0-44.9, adult Z68.41 ; Lumbar radiculopathy M54.16 and Dysthymia F34.1 [facility] [id number] [place] [address] 00275- 6136 13 Nov, 2017 [facility] [id number] [place] [address] 33571- 7257 Nov, [facility] [address] 67329- 6498 Oct, [facility] [address] 31430- 7466 Oct, Chronic pain due to trauma G89.21 ; Gastroesophageal reflux disease, esophagitis presence not specified K21.9 ; Dysthymia F34.1 ; Lumbar radiculopathy M54.16 ; Esophageal dysphagia R13.10 and BMI 40.0-44.9, adult Z68.41 [facility] [id number] [place] [address]328 -7026 Sep, History of anemia Z86.2 and Acute allergic rhinitis, unspecified seasonality, unspecified trigger J30.9 [facility] [id number] [place] [address] 07600- 3496 05 Sep, 2017 [facility] [id number] [place] [address] 30232- 3737 14 Jul, 2016 [facility] [id number] [place] [address] 36833- 2362 14 Jan, 2015 [facility] [id number] [place] [address] 41002- 7455 Jan, [facility] [address] 89888- 6911 Nov, [facility] [id number] [place] [address] 29004- 1411 Nov, [facility] [address] 89085- 8553 Oct, [facility] [place] [facility] [address] [id number] [place] [address]- 2810 Aug, [facility] [place] [facility] [address] [id number] [place] [address]- 9760 Aug, [facility] [place] [facility] [address] [id number] [place] [address]- 2932 Jul, [facility] [place] [facility] [address] [id number] [place] [address]- 6084 Jul, [facility] [place] [facility] [address] [id number] [place] [address]- 9344 Jul, [facility] [place] [facility] [address] [id number] [place] [address]- 5852 Jul, [facility] [place] [facility] [address] [id number] [place] [address]- 8028 Jul, [facility] [place] [facility] [address] [id number] [place] [address]- 6336 Jun, [facility] [place] [facility] [address] [id number] [place] [address]- 7381 16 Jun, 2013 [facility] [place] [facility] [address] [id number] [place] [address]- 8699 Jun, [facility] [place] [facility] [address] [id number], [place] [address]- 6172 May, [facility] [place] [facility] [address] [id number], [place] [address]- 4512 May, [facility] [place] [facility] [address] [id number] [place] [address]- 5378 May, [facility] [place] [facility] [address] [id number], [place] [address]- 4692 May, [facility] [place] [facility] [address] [id number] [place] [address]- 4040 Apr, [facility] [place] [facility] [address] [id number] [place] [address] 2541 Apr, [facility] [address] [id number] [place] [address]- 2889 Apr, [facility] [address] [id number] [place] [address] 2546 Apr, [facility] [address] [id number] [place] [address]- 2976 Mar, [facility] [address] [id number] [place] [address] 254 Mar, [facility] [address] [id number] [place] [address]- 7571 Mar, [facility] [address] [id number] [place] [address]- 9216 February, [facility] [address] [id number] [place] [address]- 4144 February, [facility] [address] [id number] [place] [address]- 9917 February, [facility] [address] [id number] [place] [address]- 7501 February, [facility] [address] [id number] [place] [address]- 4796 February, [facility] [address] [id number] [place] [address]- 4636 February, [facility] [address] [id number] [place] [address]- 2545 Jan, [facility] [place] [facility] [address] [id number] [place] [address]- 4838 Jan, [facility] [place] [facility] [address] [id number] [place] [address]- 2546 Dec, [facility] [address] [id number] [place] [address]- 0330 Dec, [facility] [address] [id number] [place] [address]- 3343 06 Dec, 2012 [facility] [place] [facility] [address] [id number] [place] [address]- 7440 05 Dec, 2012 [facility] [place] [facility] [address] [id number] [place] [address]- 7994 04 Dec, 2012 [facility] [place] [facility] [address] [id number] [place] [address]- 4886 Nov, [facility] [place] [facility] [address] [id number] [place] [address]- 2694 Nov, [facility] [place] [facility] [address] [id number] [place] [address]- 2533 Nov, [facility] [place] [facility] [address] [id number] [place] [address]- 5268 Nov, [facility] [place] [facility] [address] [id number] [place] [address]- 9664 Nov, [facility] [place] [facility] [address] [id number] [place] [address]- 4456 Oct, [facility] [place] [facility] [address] [id number] [place] [address]- 5650 Oct, [facility] [place] [facility] [address] [id number] [place] [address]- 4850 Sep, [facility] [place] [facility] [address] [id number] [place] [address]- 1637 Sep, [facility] [place] [facility] [address] [id number] [place] [address]- 5647 Sep, [facility] [place] [facility] [address] [id number] [place] [address]- 7355 Sep, [facility] [place] [facility] [address] [id number] [place] [address]- 9961 Sep, [facility] [place] [facility] [address] [id number], [place] [address]- 7757 Sep, [facility] [place] [facility] [address] [id number] [place] [address]- 7518 Sep, [facility] [place] [facility] [address] [facility] [id number], [place] [address]- 5651 Sep, [facility] [place] [facility] [address] [facility] [id number] [place] [address]- 8393 Aug, [facility] [place] [facility] [address] [facility] [id number], [place] [address]- 2666 Aug, [facility] [place] [facility] [id number] [place] [address], [place] [address]- 2344 Aug, [facility] [place] [facility] [address] [facility] [id number], [place] [address]- 7418 Aug, [facility] [place] [facility] [id number] [place] [address] 06899- 1367 Aug, [facility] [place] [facility] [address] [id number], [place] [address]- 4382 Aug, [facility] [place] [facility] [address] [id number], [place] [address]- 3360 Aug, [facility] [place] [facility] [address] [id number], [place] [address]- 6431 Jul, [facility] [place] [facility] [address] [facility] [id number], [place] [address]- 4394 Jul, [facility] [place] [facility] [address] [facility] [id number], [place] [address]- 4887 Jul, [facility] [place] [facility] [address] [facility] [id number][place] [address]- 1717 Jul, [facility] [place] [facility] [address] [facility] [id number], [place] [address]- 0503 Jul, [facility] [place] [facility] [address] [id number], [place] [address]- 1776 Jul, [facility] [place] [facility] [address] [id number] [place] [address]- 2546 Jul, [facility] [place] [facility] [address] [id number] [place] [address] 2546 Jun, [facility] [place] [facility] [address] [id number] [place] [address]- 2546 Jun, [facility] [place] [facility] [address] [id number] [place] [address]- 2546 Jun, [facility] [place] [facility] [address] [id number] [place] [address]- 2546 May, [facility] [place] [facility] [address] [id number] [place] [address]- 2546 May, [facility] [place] [facility] [address] [id number] [place] [address]- 2546 Apr, [facility] [place] [facility] [address] [id number] [place] [address]- 2546 Apr, [facility] [place] [facility] [address] [id number] [place] [address]- 0607 Mar, [facility] [place] [facility] [address] [id number] [place] [address]- 2066 February, [facility] [place] [facility] [address] [id number] [place] [address]- 2546 February, [facility] [place] [facility] [address] [id number] [place] [address]- 2546 February, [facility] [place] [facility] [address] [id number] [place] [address]- 2546 February, [facility] [place] [facility] [address] [id number] [place] [address]- 2546 February, [facility] [place] [facility] [address] [id number] [place] [address]- 2546 February, [facility] [place] [facility] [address] [id number] [place] [address]- 7900 February, [facility] [address] [id number] [place] [address]- 1178 Jan, [facility] [place] [facility] [address] [id number] [place] [address]- 3586 Dec, [facility] [address] [id number] [place] [address]- 5274 Dec, [facility] [address] [id number] [place] [address]- 1959 Oct, [facility] [address] [id number] [place] [address]- 0799 Oct, [facility] [address] [id number] [place] [address]- 6238 Oct, [facility] [address] [id number] [place] [address]- 5828 Oct, [facility] [place] [facility] [address] [id number] [place] [address]- 1857 Oct, [facility] [address] [id number] [place] [address]- 5891 Oct, [facility] [place] [facility] [address] [id number] [place] [address]- 3922 Oct, [facility] [address] [id number], [place] [address]- 9416 Oct, [facility] [place] [facility] [address] [id number], [place] [address]- 6003 Oct, [facility] [place] [facility] [address] [id number] [place] [address]- 9222 Sep, [facility] [place] [facility] [address] [id number] [place] [address]- 0266 Sep, [facility] [place] [facility] [address] [id number] [place] [address]- 1116 Sep, [facility] [place] [facility] [address] [id number] [place] [address]- 4995 21 Sep, 2011 [facility] [place] [facility] [address] [id number] [place] [address]- 0192 20 Sep, 2011 [facility] [place] [facility] [address] [id number] [place] [address]- 5036 19 Sep, 2011 [facility] [place] [facility] [address] [id number] [place] [address] 2546 19 Sep, 2011 [facility] [place] [facility] [address] [id number] [place] [address] 2543 19 Sep, 2011 [facility] [place] [facility] [address] [id number] [place] [address]- 2317 13 Sep, 2011 [facility] [place] [facility] [address] [id number] [place] [address]- 5663 05 Sep, 2011 [facility] [place] [facility] [address] [facility] [id number] [place] [address]- 0933 15 Aug, 2011 [facility] [place] [facility] [address] [id number] [place] [address]- 1813 18 Jul, 2011 [facility] [place] [facility] [address] [id number] [place] [address]- 9264 09 Sep, 2010 [facility] [place] [facility] [address] [facility] [id number] [place] [address]- 2202 15 Aug, 2010 [facility] [place] [facility] [address] [id number] [place] [address]- 9399 11 Aug, 2010 [facility] [place] [facility] [address] [id number] [place] [address]- 254 11 Aug, 2010 [facility] [place] [facility] [address] [id number] [place] [address]- 4740 03 Aug, 2010 [facility] [place] [facility] [address] [facility] [id number] [place] [address]- 2540 29 Jul, 2010 [facility] [place] [facility] [address] [id number] [place] [address]- 3517 Jul, [facility] [address] [facility] [id number] [place] [address]- 9236 Jul, IMMUNIZATIONS No Known Immunizations SOCIAL HISTORY Never Assessed REASON FOR VISIT Morphine and Oxycodone 04/05 PLAN OF CARE VITAL SIGNS MEDICATIONS Medication Instructions Dosage Frequency Start Date End Date Duration Status Oxycodone-Acetaminophen 10-325 MG Orally 3 times a day 1 tablet as needed 8h 14 Mar, 2018 28 days Active MS Contin 30 MG Orally every 12 hrs 1 tablet 12h Mar, 28 days Active RESULTS No Results PROCEDURES [...]
--- OUTSIDE RECORDS SUMMARY | 2018-11-21 09:33 | XMS REPORT ---
Author Author NEERU CANO Organization [facility] Address [address] [place] [address] Care Team Providers Care Enterprise Application Administrator Name Role Phone NEERU CANO Unavailable PROBLEMS Type Condition ICD9-CM Code XFC17-CT Code Onset Dates Condition Status SNOMED Code Problem Dysthymia F34.1 Active 52812159 Problem Esophageal dysphagia R13.10 Active 19052119 Problem Gastroesophageal reflux disease, esophagitis presence not specified K21.9 Active 277488189 Problem Lumbar radiculopathy M54.16 Active 201194629 Problem Other chronic pain G89.29 Active 13921619 Problem Chronic obstructive pulmonary disease, unspecified COPD type J44.9 Active 26074176 Problem History of anemia Z86.2 Active 573984834 Problem Chronic pain due to trauma G89.21 Active 977795197 Problem Atrophic gastritis without hemorrhage K29.40 Active 92246545 Problem Acute allergic rhinitis, unspecified seasonality, unspecified trigger J30.9 Active 33133725 ALLERGIES No Information ENCOUNTERS Encounter Location Date Diagnosis [place] [id number] [place] [address] 64908- 7114 13 Apr, 2018 Strain of neck muscle, subsequent encounter S16.1XXD and Lumbar radiculopathy M54.16 [place] [id number] [place] [address] 98749- 1807 11 Apr, 2018 Atrophic gastritis without hemorrhage K29.40 and Chronic pain due to trauma G89.21 [place] [address] 8[address]- 6155 14 Mar, 2018 Chronic pain due to trauma G89.21 ; Lumbar radiculopathy M54.16 ; Dysthymia F34.1 ; Pain in right shoulder M25.511 ; Pain in left shoulder M25.512 ; Other chronic pain G89.29 and Chronic obstructive pulmonary disease, unspecified COPD type J44.9 [place] [id number] [place] [address] 40789- 3601 Mar, Chronic pain due to trauma G89.21 and Atrophic gastritis without hemorrhage K29.40 [place] [id number] [place] [address] 73715- 3842 February, Chronic pain due to trauma G89.21 and Atrophic gastritis without hemorrhage K29.40 [place] [address] 8[address]33- 4588 Jan, Chronic pain due to trauma G89.21 and Atrophic gastritis without hemorrhage K29.40 [place] [address] 492586- 3260 Jan, Atrophic gastritis without hemorrhage K29.40 [place] [address] 96487- 5649 Dec, Atrophic gastritis without hemorrhage K29.40 and Chronic pain due to trauma G89.21 [place] [address] 9[address]53- 3086 Dec, Chronic pain due to trauma G89.21 and Lumbar radiculopathy M54.16 [place] [id number] [place] [address] 45551- 3836 Dec, Lumbar radiculopathy M54.16 [place] [id number] [place] [address] 12058- 2334 Dec, [place] [address] 38579- 1680 Nov, Chronic pain due to trauma G89.21 [place] [address] 26506- 7343 Nov, BMI 40.0-44.9, adult Z68.41 ; Lumbar radiculopathy M54.16 and Dysthymia F34.1 [place] [address] [address] [id number]- 2546 Nov, [facility] [address] [address] Nov, [facility] [id number] [place] [address] 932485- 5904 Oct, [facility] [id number] [place] [address] 84873- 4965 Oct, Chronic pain due to trauma G89.21 ; Gastroesophageal reflux disease, esophagitis presence not specified K21.9 ; Dysthymia F34.1 ; Lumbar radiculopathy M54.16 ; Esophageal dysphagia R13.10 and BMI 40.0-44.9, adult Z68.41 [facility] [id number] [place] [address] 33055 -2564 Sep, History of anemia Z86.2 and Acute allergic rhinitis, unspecified seasonality, unspecified trigger J30.9 [facility] [id number] [place] [address] 16192- 9890 Sep, [facility] [id number] [place] [address] 96230- 4076 14 Jul, 2016 [facility] [id number] [place] [address] 78848- 1653 14 Jan, 2015 [facility] [id number] [place] [address] 16480- 8680 Jan, [facility] [id number] [place] [address] 04321- 5452 Nov, [facility] [id number] [place] [address] 55216- 4653 Nov, [facility] [id number] [place] [address] 93028- 5835 Oct, [facility] [id number] [place] [address] 85436- 8625 Aug, [facility] [address] [address] [place] [address]- 9088 Aug, [facility] [place] [facility] [address] [id number] [place] [address]- 6942 Jul, [facility] [place] [facility] [address] [id number] [place] [address]- 3027 Jul, [facility] [place] [facility] [address] [id number] [place] [address]- 2864 Jul, [facility] [place] [facility] [address] [id number] [place] [address]- 2282 Jul, [facility] [place] [facility] [address] [id number] [place] [address]- 1904 Jul, [facility] [place] [facility] [address] [id number] [place] [address]- 4669 Jun, [facility] [place] [facility] [address] [id number] [place] [address]- 3938 Jun, [facility] [place] [facility] [address] [id number] [place] [address]- 3642 Jun, [facility] [place] [facility] [address] [id number] [place] [address]- 8618 May, [facility] [place] [facility] [address] [id number] [place] [address]- 5944 May, [facility] [place] [facility] [address] [id number] [place] [address]- 8934 May, [facility] [place] [facility] [address] [id number] [place] [address]- 9676 May, [facility] [place] [facility] [address] [id number] [place] [address]- 0855 Apr, [facility] [place] [facility] [address] [id number] [place] [address] 2542 Apr, [facility] [place] [facility] [address] [id number] [place] [address]- 3122 Apr, [facility] [place] [facility] [address] [id number] [place] [address]- 2543 Apr, [facility] [address] [id number] [place] [address]- 2546 Mar, [facility] [address] [id number] [place] [address]- 2546 Mar, [facility] [address] [id number] [place] [address]- 2546 Mar, [facility] [address] [id number] [place] [address]- 2540 February, [facility] [address] [id number] [place] [address]- 6686 February, [facility] [address] [id number] [place] [address]- 8393 February, [facility] [address] [id number] [place] [address]- 6306 February, [facility] [address] [id number] [place] [address]- 0561 February, [facility] [address] [id number] [place] [address]- 2006 February, [facility] [address] [id number] [place] [address]- 7603 Jan, [facility] [address] [id number] [place] [address]- 2549 Jan, [facility] [address] [id number] [place] [address]- 2540 Dec, [facility] [place] [facility] [address] [id number] [place] [address]- 2546 Dec, [facility] [address] [id number] [place] [address]- 2546 Dec, [facility] [address] [id number] [place] [address]- 0079 05 Dec, 2012 [facility] [address] [id number] [place] [address]- 7926 04 Dec, 2012 [facility] [address] [id number] [place] [address]- 1616 21 Nov, 2012 [facility] [address] [id number] [place] [address]- 4976 13 Nov, 2012 [facility] [address] [id number] [place] [address]- 0746 12 Nov, 2012 [facility] [address] [id number] [place] [address]- 9716 07 Nov, 2012 [facility] [address] [id number] [place] [address]- 1466 Nov, [facility] [address] [id number] [place] [address]- 6193 Oct, [facility] [address] [id number] [place] [address]- 3419 Oct, [facility] [address] [id number] [place] [address]- 7662 Sep, [facility] [address] [id number] [place] [address]- 5941 Sep, [facility] [address] [id number] [place] [address]- 9686 Sep, [facility] [place] [facility] [address] [id number] [place] [address]- 2546 Sep, [facility] [place] [facility] [address] [id number] [place] [address]- 6866 Sep, [facility] [place] [facility] [address] [id number] [place] 9896 Sep, [facility] [address] [id number] [place] [address]- 6765 05 Sep, 2012 [facility] [place] [facility] [address] [id number] [place] [address]- 8056 Sep, [facility] [place] [facility] [address] [id number] [place] [address]- 6977 Aug, [facility] [place] [facility] [address] [id number] [place] [address]- 1637 Aug, [facility] [place] [facility] [address] [id number] [place] [address]- 6128 Aug, [facility] [place] [facility] [address] [id number] [place] [address]- 5553 Aug, [facility] [place] [facility] [address] [id number] [place] [address]- 0165 Aug, [facility] [place] [facility] [address] [id number] [place] [address]- 1913 Aug, [facility] [place] [facility] [address] [id number] [place] [address]- 7183 Aug, [facility] [place] [facility] [address] [id number] [place] [address]- 2577 Jul, [facility] [place] [facility] [address] [id number] [place] [address]- 6873 Jul, [facility] [place] [facility] [address] [id number] [place] [address]- 5624 Jul, [facility] [place] [facility] [address] [id number] [place] [address]- 6172 Jul, [facility] [place] [facility] [address] [id number] [place] [address]- 5814 Jul, [facility] [place] [facility] [address] [id number] [place] [address]- 9570 Jul, [facility] [place] [facility] [address] [id number] [place] [address]- 1350 Jul, [facility] [place] [facility] [address] [id number] [place] [address]- 0071 Jun, [facility] [place] [facility] [address] [id number] [place] [address] 2545 Jun, [facility] [place] [facility] [address] [id number] [place] [address]- 2546 Jun, [facility] [place] [facility] [address] [id number] [place] [address] 2546 May, [facility] [place] [facility] [address] [id number] [place] [address]- 2546 May, [facility] [place] [facility] [address] [id number] [place] [address]- 0112 Apr, [facility] [place] [facility] [address] [id number] [place] [address]- 8386 Apr, [facility] [place] [facility] [address] [id number] [place] [address]- 7711 Mar, [facility] [place] [facility] [address] [id number] [place] [address]- 1316 February, [facility] [place] [facility] [address] [id number] [place] [address]- 9982 February, [facility] [place] [facility] [address] [id number] [place] [address]- 4596 February, [facility] [place] [facility] [address] [id number] [place] [address]- 8343 February, [facility] [place] [facility] [address] [id number] [place] [address]- 5564 February, [facility] [place] [facility] [address] [id number] [place] [address]- 7316 February, [facility] [place] [facility] [address] [id number] [place] [address]- 5086 February, [facility] [place] [facility] [address] [id number] [place] [address]- 8178 Jan, [facility] [place] [facility] [address] [id number] [place] [address]- 2996 30 Dec, 2011 [facility] [address] [id number] [place] [address]- 2904 28 Dec, 2011 [facility] [address] [id number] [place] [address]- 8166 29 Oct, 2011 [facility] [address] [id number] [place] [address]- 5494 Oct, [facility] [address] [id number] [place] [address]- 2324 Oct, [facility] [address] [id number] [place] [address]- 8106 Oct, [facility] [address] [id number] [place] [address]- 6349 Oct, [facility] [address] [id number] [place] [address]- 3430 Oct, [facility] [address] [id number] [place] [address]- 7129 Oct, [facility] [address] [id number] [place] [address]- 3201 Oct, [facility] [address] [id number] [place] [address]- 1120 Oct, [facility] [address] [id number] [place] [address]- 0109 Sep, [facility] [address] [id number] [place] [address]- 3190 Sep, [facility] [address] [id number] [place] [address]- 4830 Sep, [facility] [address] [id number] [place] [address]- 6835 Sep, [facility] [address] [id number] [place] [address]- 8652 Sep, [facility] [address] [id number], [place] [address]- 1755 Sep, [facility] [address] [id number], [place] [address]- 5406 Sep, [facility] [address] [id number] 3563 Sep, [facility] [address] [id number], [place] [address]- 5285 Sep, [facility] [address] [id number], [place] [address]- 3340 05 Sep, 2011 [facility] [address] [id number], [place] [address]- 0499 15 Aug, 2011 [facility] [address] [id number], [place] [address]- 0902 18 Jul, 2011 [facility] [address] [id number], [place] [address]- 2424 Sep, [facility] [address] [id number], [place] [address]- 8889 15 Aug, 2010 [facility] [address] [id number], [place] [address]- 3437 Aug, [facility] [id number] [address]- 1738 Aug, [facility] [address] [id number], [place] [address]- 3262 Aug, [facility] [address] [id number], [place] [address]- 1947 Jul, [facility] [address] [id number], [place] [address]- 9228 Jul, [facility] [address] [id number], [place] [address]- 9135 Jul, IMMUNIZATIONS No Known Immunizations SOCIAL HISTORY Never Assessed REASON FOR VISIT Change in Morphine PLAN OF CARE VITAL SIGNS MEDICATIONS Medication Instructions Dosage Frequency Start Date End Date Duration Status MS Contin 30 MG Orally every 12 hrs 1 tablet 12h Jan, Jan, 18 days Active RESULTS No Results PROCEDURES No [...] History cholecystectomy 2004 Surgical History gastric bypass 2004 Surgical History rods in the back 2000 Surgical History rods removed 2004 Surgical History right ankle repair and hardware removed 2012 Hospitalization History Surgeries only
--- OUTSIDE RECORDS SUMMARY | 2018-11-21 09:33 | XMS REPORT ---
Author Author NEERU CANO [facility] Address [address] [place] [address] Care Team Providers Care Mobile Service Rv Technician Name Role Phone NEERU CANO Unavailable PROBLEMS Type Condition ICD9-CM Code GHW24-NT Code Onset Dates Condition Status SNOMED Code Problem Dysthymia F34.1 Active 14523732 Problem Esophageal dysphagia R13.10 Active 67790243 Problem Gastroesophageal reflux disease, esophagitis presence not specified K21.9 Active 634731380 Problem Lumbar radiculopathy M54.16 Active 009444017 Problem Other chronic pain G89.29 Active 94906473 Problem Chronic obstructive pulmonary disease, unspecified COPD type J44.9 Active 75913174 Problem History of anemia Z86.2 Active 824285681 Problem Chronic pain due to trauma G89.21 Active 539638992 Problem Atrophic gastritis without hemorrhage K29.40 Active 42304881 Problem Acute allergic rhinitis, unspecified seasonality, unspecified trigger J30.9 Active 81642178 ALLERGIES No Information ENCOUNTERS Encounter Location Date Diagnosis [place] [id number] [id number] [place] [address] May, Atrophic gastritis without hemorrhage K29.40 and Chronic pain due to trauma G89.21 [facility] [id number] [place] [address]85- [address] Apr, Strain of neck muscle, subsequent encounter S16.1XXD and Lumbar radiculopathy M54.16 [facility] [address] [address]- [address] Apr, Atrophic gastritis without hemorrhage K29.40 and Chronic pain due to trauma G89.21 [facility] [id number] [place] [address]- 3158 14 Mar, 2018 Chronic pain due to trauma G89.21 ; Lumbar radiculopathy M54.16 ; Dysthymia F34.1 ; Pain in right shoulder M25.511 ; Pain in left shoulder M25.512 ; Other chronic pain G89.29 and Chronic obstructive pulmonary disease, unspecified COPD type J44.9 [place] [address] [address]- [address] 14 Mar, 2018 Chronic pain due to trauma G89.21 and Atrophic gastritis without hemorrhage K29.40 [place] [address] [address]- [address] February, Chronic pain due to trauma G89.21 and Atrophic gastritis without hemorrhage K29.40 [place] [address] [place] [address]- [address] Jan, Chronic pain due to trauma G89.21 and Atrophic gastritis without hemorrhage K29.40 [place] [address] [address]- 6690 Jan, Atrophic gastritis without hemorrhage K29.40 [place] [address] [address]- [address] Dec, Atrophic gastritis without hemorrhage K29.40 and Chronic pain due to trauma G89.21 [place] [address] [address]- 1769 Dec, Chronic pain due to trauma G89.21 and Lumbar radiculopathy M54.16 [place] [address] 8[address]- 4609 Dec, Lumbar radiculopathy M54.16 [place] [address] [address]73- 6[address] Dec, [place] [address] [address]- 9779 Nov, Chronic pain due to trauma G89.21 [place] [address] 70746- 9417 Nov, BMI 40.0-44.9, adult Z68.41 ; Lumbar radiculopathy M54.16 and Dysthymia F34.1 [facility] [id number] [place] [address] 63140- 2368 13 Nov, 2017 [facility] [id number] [place] [address] 60861- 0872 Nov, [facility] [address] 61334- 7921 Oct, [facility] [address] [address]- 2780 Oct, Chronic pain due to trauma G89.21 ; Gastroesophageal reflux disease, esophagitis presence not specified K21.9 ; Dysthymia F34.1 ; Lumbar radiculopathy M54.16 ; Esophageal dysphagia R13.10 and BMI 40.0-44.9, adult Z68.41 [facility] [id number] [place] [address] -[address]2 Sep, History of anemia Z86.2 and Acute allergic rhinitis, unspecified seasonality, unspecified trigger J30.9 [facility] [id number] [place] [address] 72040- 1151 05 Sep, 2017 [facility] [id number] [place] [address] 97861- 3999 14 Jul, 2016 [facility] [id number] [place] [address] 13252- 5550 14 Jan, 2015 [facility] [id number] [place] [address] 62663- 7931 Jan, [facility] [address] 27783- 6880 Nov, [facility] [id number] [place] [address] 80470- 4783 Nov, [facility] [address] 46841- 2793 Oct, [facility] [place] [facility] [address] [id number] [place] [address]- 5765 Aug, [facility] [place] [facility] [address] [id number] [place] [address]- 3078 Aug, [facility] [place] [facility] [address] [id number] [place] [address]- 9530 Jul, [facility] [place] [facility] [address] [id number] [place] [address]- 4950 Jul, [facility] [place] [facility] [address] [id number] [place] [address]- 9116 Jul, [facility] [place] [facility] [address] [id number] [place] [address]- 2257 Jul, [facility] [place] [facility] [address] [id number] [place] [address]- 5757 Jul, [facility] [place] [facility] [address] [id number] [place] [address]- 7680 Jun, [facility] [place] [facility] [address] [id number] [place] [address]- 1336 16 Jun, 2013 [facility] [place] [facility] [address] [id number] [place] [address]- 6834 Jun, [facility] [place] [facility] [address] [id number], [place] [address]- 5172 May, [facility] [place] [facility] [address] [id number], [place] [address]- 2549 May, [facility] [place] [facility] [address] [id number] [place] [address]- 1745 May, [facility] [place] [facility] [address] [id number], [place] [address]- 7362 May, [facility] [place] [facility] [address] [id number] [place] [address]- 6701 Apr, [facility] [place] [facility] [address] [id number] [place] [address] 254 Apr, [facility] [address] [id number] [place] [address]- 3139 Apr, [facility] [address] [id number] [place] [address] 2546 Apr, [facility] [address] [id number] [place] [address]- 8386 Mar, [facility] [address] [id number] [place] [address] 2544 Mar, [facility] [address] [id number] [place] [address]- 1465 Mar, [facility] [address] [id number] [place] [address]- 4056 February, [facility] [address] [id number] [place] [address]- 4372 February, [facility] [address] [id number] [place] [address]- 1041 February, [facility] [address] [id number] [place] [address]- 1576 February, [facility] [address] [id number] [place] [address]- 8696 February, [facility] [address] [id number] [place] [address]- 6456 February, [facility] [address] [id number] [place] [address]- 2544 Jan, [facility] [place] [facility] [address] [id number] [place] [address]- 9526 Jan, [facility] [place] [facility] [address] [id number] [place] [address]- 2546 Dec, [facility] [address] [id number] [place] [address]- 5315 Dec, [facility] [address] [id number] [place] [address]- 4569 06 Dec, 2012 [facility] [place] [facility] [address] [id number] [place] [address]- 3202 05 Dec, 2012 [facility] [place] [facility] [address] [id number] [place] [address]- 0053 04 Dec, 2012 [facility] [place] [facility] [address] [id number] [place] [address]- 9558 Nov, [facility] [place] [facility] [address] [id number] [place] [address]- 5426 Nov, [facility] [place] [facility] [address] [id number] [place] [address]- 7317 Nov, [facility] [place] [facility] [address] [id number] [place] [address]- 1088 Nov, [facility] [place] [facility] [address] [id number] [place] [address]- 3087 Nov, [facility] [place] [facility] [address] [id number] [place] [address]- 0047 Oct, [facility] [place] [facility] [address] [id number] [place] [address]- 3982 Oct, [facility] [place] [facility] [address] [id number] [place] [address]- 4347 Sep, [facility] [place] [facility] [address] [id number] [place] [address]- 5427 Sep, [facility] [place] [facility] [address] [id number] [place] [address]- 2766 Sep, [facility] [place] [facility] [address] [id number] [place] [address]- 0371 Sep, [facility] [place] [facility] [address] [id number] [place] [address]- 2756 Sep, [facility] [place] [facility] [address] [id number], [place] [address]- 0888 Sep, [facility] [place] [facility] [address] [id number] [place] [address]- 1132 Sep, [facility] [place] [facility] [address] [facility] [id number], [place] [address]- 2763 Sep, [facility] [place] [facility] [address] [facility] [id number] [place] [address]- 7541 Aug, [facility] [place] [facility] [address] [facility] [id number], [place] [address]- 0101 Aug, [facility] [place] [facility] [id number] [place] [address], [place] [address]- 8233 Aug, [facility] [place] [facility] [address] [facility] [id number], [place] [address]- 5596 Aug, [facility] [place] [facility] [id number] [place] [address] 84116- 0548 Aug, [facility] [place] [facility] [address] [id number], [place] [address]- 6478 Aug, [facility] [place] [facility] [address] [id number], [place] [address]- 4783 Aug, [facility] [place] [facility] [address] [id number], [place] [address]- 8287 Jul, [facility] [place] [facility] [address] [facility] [id number], [place] [address]- 6506 Jul, [facility] [place] [facility] [address] [facility] [id number], [place] [address]- 4665 Jul, [facility] [place] [facility] [address] [facility] [id number], [place] [address]- 7169 Jul, [facility] [place] [facility] [address] [facility] [id number], [place] [address]- 1222 Jul, [facility] [place] [facility] [address] [id number], [place] [address]- 6125 Jul, [facility] [place] [facility] [address] [id number] [place] [address]- 2546 Jul, [facility] [place] [facility] [address] [id number] [place] [address] 2546 Jun, [facility] [place] [facility] [address] [id number] [place] [address]- 2546 Jun, [facility] [place] [facility] [address] [id number] [place] [address]- 2546 Jun, [facility] [place] [facility] [address] [id number] [place] [address]- 2546 May, [facility] [place] [facility] [address] [id number] [place] [address]- 2546 May, [facility] [place] [facility] [address] [id number] [place] [address]- 2546 Apr, [facility] [place] [facility] [address] [id number] [place] [address]- 2546 Apr, [facility] [place] [facility] [address] [id number] [place] [address]- 2449 Mar, [facility] [place] [facility] [address] [id number] [place] [address]- 1716 February, [facility] [place] [facility] [address] [id number] [place] [address]- 2546 February, [facility] [place] [facility] [address] [id number] [place] [address]- 2546 February, [facility] [place] [facility] [address] [id number] [place] [address]- 2546 February, [facility] [place] [facility] [address] [id number] [place] [address]- 2546 February, [facility] [place] [facility] [address] [id number] [place] [address]- 2546 February, [facility] [place] [facility] [address] [id number] [place] [address]- 7722 February, [facility] [address] [id number] [place] [address]- 8066 Jan, [facility] [place] [facility] [address] [id number] [place] [address]- 9316 Dec, [facility] [address] [id number] [place] [address]- 8594 Dec, [facility] [address] [id number] [place] [address]- 4835 Oct, [facility] [address] [id number] [place] [address]- 0962 Oct, [facility] [address] [id number] [place] [address]- 7058 Oct, [facility] [address] [id number] [place] [address]- 3019 Oct, [facility] [place] [facility] [address] [id number] [place] [address]- 1484 Oct, [facility] [address] [id number] [place] [address]- 6322 Oct, [facility] [place] [facility] [address] [id number] [place] [address]- 4901 Oct, [facility] [address] [id number], [place] [address]- 0016 Oct, [facility] [place] [facility] [address] [id number], [place] [address]- 2426 Oct, [facility] [place] [facility] [address] [id number] [place] [address]- 9846 Sep, [facility] [place] [facility] [address] [id number] [place] [address]- 6106 Sep, [facility] [place] [facility] [address] [id number] [place] [address]- 9446 Sep, [facility] [place] [facility] [address] [id number] [place] [address]- 2552 21 Sep, 2011 [facility] [place] [facility] [address] [id number] [place] [address]- 2328 20 Sep, 2011 [facility] [place] [facility] [address] [id number] [place] [address]- 0256 19 Sep, 2011 [facility] [place] [facility] [address] [id number] [place] [address] 2546 19 Sep, 2011 [facility] [place] [facility] [address] [id number] [place] [address] 2542 19 Sep, 2011 [facility] [place] [facility] [address] [id number] [place] [address]- 9130 13 Sep, 2011 [facility] [place] [facility] [address] [id number] [place] [address]- 2889 05 Sep, 2011 [facility] [place] [facility] [address] [facility] [id number] [place] [address]- 8487 15 Aug, 2011 [facility] [place] [facility] [address] [id number] [place] [address]- 7025 18 Jul, 2011 [facility] [place] [facility] [address] [id number] [place] [address]- 6652 09 Sep, 2010 [facility] [place] [facility] [address] [facility] [id number] [place] [address]- 8088 15 Aug, 2010 [facility] [place] [facility] [address] [id number] [place] [address]- 4198 11 Aug, 2010 [facility] [place] [facility] [address] [id number] [place] [address]- 2540 11 Aug, 2010 [facility] [place] [facility] [address] [id number] [place] [address]- 5094 03 Aug, 2010 [facility] [place] [facility] [address] [facility] [id number] [place] [address]- 2545 29 Jul, 2010 [facility] [place] [facility] [address] [id number] [place] [address]- 6306 Jul, [facility] [address] [facility] [id number] [place] [address]- 9908 Jul, IMMUNIZATIONS No Known Immunizations SOCIAL HISTORY Never Assessed REASON FOR VISIT oxycodone and morphine 03/06 PLAN OF CARE VITAL SIGNS MEDICATIONS Medication Instructions Dosage Frequency Start Date End Date Duration Status MS Contin 30 MG Orally every 12 hrs 1 tablet 12h February, 28 days Active Oxycodone-Acetaminophen 10-325 MG Orally 3 times a day 1 tablet as needed 8h February, 28 days Active RESULTS No Results PROCEDURES [...]
--- OUTSIDE RECORDS SUMMARY | 2018-11-21 09:33 | XMS REPORT ---
Author Author NEERU CANO Organization [facility] Address [address] [place] [address] Care Team Providers Care Sheet Sorter Name Role Phone NEERU CANO Unavailable PROBLEMS Type Condition ICD9-CM Code OQN82-SN Code Onset Dates Condition Status SNOMED Code Problem Dysthymia F34.1 Active 60443706 Problem Esophageal dysphagia R13.10 Active 01559238 Problem Gastroesophageal reflux disease, esophagitis presence not specified K21.9 Active 791222234 Problem Lumbar radiculopathy M54.16 Active 568537961 Problem Other chronic pain G89.29 Active 95459183 Problem Chronic obstructive pulmonary disease, unspecified COPD type J44.9 Active 17345298 Problem History of anemia Z86.2 Active 994886255 Problem Chronic pain due to trauma G89.21 Active 711070789 Problem Atrophic gastritis without hemorrhage K29.40 Active 14319394 Problem Acute allergic rhinitis, unspecified seasonality, unspecified trigger J30.9 Active 89771919 ALLERGIES No Information ENCOUNTERS Encounter Location Date Diagnosis [place] [id number] [place] [address] 9[address]15- 0255 13 Apr, 2018 Strain of neck muscle, subsequent encounter S16.1XXD and Lumbar radiculopathy M54.16 [place] [id number] [place] [address] 66168- 8803 11 Apr, 2018 Atrophic gastritis without hemorrhage K29.40 and Chronic pain due to trauma G89.21 [place] [address] [address]- [address] 14 Mar, 2018 Chronic pain due to trauma G89.21 ; Lumbar radiculopathy M54.16 ; Dysthymia F34.1 ; Pain in right shoulder M25.511 ; Pain in left shoulder M25.512 ; Other chronic pain G89.29 and Chronic obstructive pulmonary disease, unspecified COPD type J44.9 [place] [id number] [place] [address] 75739- 1519 Mar, Chronic pain due to trauma G89.21 and Atrophic gastritis without hemorrhage K29.40 [place] [id number] [place] [address] 57207- 6936 February, Chronic pain due to trauma G89.21 and Atrophic gastritis without hemorrhage K29.40 [place] [address] [address]- 5987 Jan, Chronic pain due to trauma G89.21 and Atrophic gastritis without hemorrhage K29.40 [place] [address] [place] [address]- 2024 Jan, Atrophic gastritis without hemorrhage K29.40 [place] [address] [address]- 3321 Dec, Atrophic gastritis without hemorrhage K29.40 and Chronic pain due to trauma G89.21 [place] [address] 38866- 9699 Dec, Chronic pain due to trauma G89.21 and Lumbar radiculopathy M54.16 [place] [id number] [place] [address] 24654- 3387 Dec, Lumbar radiculopathy M54.16 [place] [id number] [place] [address] 41670- 3780 Dec, [place] [address] 17547- 2269 Nov, Chronic pain due to trauma G89.21 [place] [address] 08956- 6749 Nov, BMI 40.0-44.9, adult Z68.41 ; Lumbar radiculopathy M54.16 and Dysthymia F34.1 [place] [address] [place] [place] [id number] 2546 Nov, [facility] [address] [address] 6[address] Nov, [facility] [id number] [place] [address] 163701- 9251 Oct, [facility] [id number] [place] [address] 83872- 7563 Oct, Chronic pain due to trauma G89.21 ; Gastroesophageal reflux disease, esophagitis presence not specified K21.9 ; Dysthymia F34.1 ; Lumbar radiculopathy M54.16 ; Esophageal dysphagia R13.10 and BMI 40.0-44.9, adult Z68.41 [facility] [id number] [place] [address] 30916 -5240 Sep, History of anemia Z86.2 and Acute allergic rhinitis, unspecified seasonality, unspecified trigger J30.9 [facility] [id number] [place] [address] 88690- 1014 Sep, [facility] [id number] [place] [address] 43297- 1258 14 Jul, 2016 [facility] [id number] [place] [address] 73738- 9169 14 Jan, 2015 [facility] [id number] [place] [address] 47647- 5220 Jan, [facility] [id number] [place] [address] 63288- 2770 Nov, [facility] [id number] [place] [address] 96652- 9303 Nov, [facility] [id number] [place] [address] 76681- 4360 Oct, [facility] [id number] [place] [address] 55144- 0811 Aug, [facility] [address] [address] [place] [address]- 0343 Aug, [facility] [place] [facility] [address] [id number] [place] [address]- 3131 Jul, [facility] [place] [facility] [address] [id number] [place] [address]- 4329 Jul, [facility] [place] [facility] [address] [id number] [place] [address]- 8094 Jul, [facility] [place] [facility] [address] [id number] [place] [address]- 9301 Jul, [facility] [place] [facility] [address] [id number] [place] [address]- 5505 Jul, [facility] [place] [facility] [address] [id number] [place] [address]- 6599 Jun, [facility] [place] [facility] [address] [id number] [place] [address]- 1470 Jun, [facility] [place] [facility] [address] [id number] [place] [address]- 6329 Jun, [facility] [place] [facility] [address] [id number] [place] [address]- 9511 May, [facility] [place] [facility] [address] [id number] [place] [address]- 1299 May, [facility] [place] [facility] [address] [id number] [place] [address]- 2087 May, [facility] [place] [facility] [address] [id number] [place] [address]- 5289 May, [facility] [place] [facility] [address] [id number] [place] [address]- 2391 Apr, [facility] [place] [facility] [address] [id number] [place] [address] 2540 Apr, [facility] [place] [facility] [address] [id number] [place] [address]- 6717 Apr, [facility] [place] [facility] [address] [id number] [place] [address]- 2549 Apr, [facility] [address] [id number] [place] [address]- 2546 Mar, [facility] [address] [id number] [place] [address]- 2546 Mar, [facility] [address] [id number] [place] [address]- 2546 Mar, [facility] [address] [id number] [place] [address]- 2543 February, [facility] [address] [id number] [place] [address]- 5416 February, [facility] [address] [id number] [place] [address]- 8263 February, [facility] [address] [id number] [place] [address]- 2786 February, [facility] [address] [id number] [place] [address]- 5258 February, [facility] [address] [id number] [place] [address]- 4876 February, [facility] [address] [id number] [place] [address]- 9658 Jan, [facility] [address] [id number] [place] [address]- 2541 Jan, [facility] [address] [id number] [place] [address]- 2541 Dec, [facility] [place] [facility] [address] [id number] [place] [address]- 2546 Dec, [facility] [address] [id number] [place] [address]- 2546 Dec, [facility] [address] [id number] [place] [address]- 3492 05 Dec, 2012 [facility] [address] [id number] [place] [address]- 5056 04 Dec, 2012 [facility] [address] [id number] [place] [address]- 2156 21 Nov, 2012 [facility] [address] [id number] [place] [address]- 6676 13 Nov, 2012 [facility] [address] [id number] [place] [address]- 6816 12 Nov, 2012 [facility] [address] [id number] [place] [address]- 5396 07 Nov, 2012 [facility] [address] [id number] [place] [address]- 5766 Nov, [facility] [address] [id number] [place] [address]- 6180 Oct, [facility] [address] [id number] [place] [address]- 1078 Oct, [facility] [address] [id number] [place] [address]- 0122 Sep, [facility] [address] [id number] [place] [address]- 8677 Sep, [facility] [address] [id number] [place] [address]- 4636 Sep, [facility] [place] [facility] [address] [id number] [place] [address]- 2546 Sep, [facility] [place] [facility] [address] [id number] [place] [address]- 2996 Sep, [facility] [place] [facility] [address] [id number] [place] 3136 Sep, [facility] [address] [id number] [place] [address]- 6925 05 Sep, 2012 [facility] [place] [facility] [address] [id number] [place] [address]- 2891 Sep, [facility] [place] [facility] [address] [id number] [place] [address]- 5127 Aug, [facility] [place] [facility] [address] [id number] [place] [address]- 8191 Aug, [facility] [place] [facility] [address] [id number] [place] [address]- 1840 Aug, [facility] [place] [facility] [address] [id number] [place] [address]- 9759 Aug, [facility] [place] [facility] [address] [id number] [place] [address]- 1446 Aug, [facility] [place] [facility] [address] [id number] [place] [address]- 9128 Aug, [facility] [place] [facility] [address] [id number] [place] [address]- 4133 Aug, [facility] [place] [facility] [address] [id number] [place] [address]- 8635 Jul, [facility] [place] [facility] [address] [id number] [place] [address]- 3820 Jul, [facility] [place] [facility] [address] [id number] [place] [address]- 6544 Jul, [facility] [place] [facility] [address] [id number] [place] [address]- 2010 Jul, [facility] [place] [facility] [address] [id number] [place] [address]- 2405 Jul, [facility] [place] [facility] [address] [id number] [place] [address]- 4093 Jul, [facility] [place] [facility] [address] [id number] [place] [address]- 5962 Jul, [facility] [place] [facility] [address] [id number] [place] [address]- 8981 Jun, [facility] [place] [facility] [address] [id number] [place] [address] 2541 Jun, [facility] [place] [facility] [address] [id number] [place] [address]- 2546 Jun, [facility] [place] [facility] [address] [id number] [place] [address] 2546 May, [facility] [place] [facility] [address] [id number] [place] [address]- 2546 May, [facility] [place] [facility] [address] [id number] [place] [address]- 4486 Apr, [facility] [place] [facility] [address] [id number] [place] [address]- 5966 Apr, [facility] [place] [facility] [address] [id number] [place] [address]- 1202 Mar, [facility] [place] [facility] [address] [id number] [place] [address]- 0306 February, [facility] [place] [facility] [address] [id number] [place] [address]- 8331 February, [facility] [place] [facility] [address] [id number] [place] [address]- 6986 February, [facility] [place] [facility] [address] [id number] [place] [address]- 3223 February, [facility] [place] [facility] [address] [id number] [place] [address]- 9932 February, [facility] [place] [facility] [address] [id number] [place] [address]- 8596 February, [facility] [place] [facility] [address] [id number] [place] [address]- 6386 February, [facility] [place] [facility] [address] [id number] [place] [address]- 7401 Jan, [facility] [place] [facility] [address] [id number] [place] [address]- 6610 30 Dec, 2011 [facility] [address] [id number] [place] [address]- 6499 28 Dec, 2011 [facility] [address] [id number] [place] [address]- 2956 29 Oct, 2011 [facility] [address] [id number] [place] [address]- 2037 Oct, [facility] [address] [id number] [place] [address]- 1287 Oct, [facility] [address] [id number] [place] [address]- 5277 Oct, [facility] [address] [id number] [place] [address]- 5433 Oct, [facility] [address] [id number] [place] [address]- 0529 Oct, [facility] [address] [id number] [place] [address]- 8600 Oct, [facility] [address] [id number] [place] [address]- 4037 Oct, [facility] [address] [id number] [place] [address]- 1088 Oct, [facility] [address] [id number] [place] [address]- 4593 Sep, [facility] [address] [id number] [place] [address]- 6373 Sep, [facility] [address] [id number] [place] [address]- 3262 Sep, [facility] [address] [id number] [place] [address]- 8915 Sep, [facility] [address] [id number] [place] [address]- 2067 Sep, [facility] [address] [id number], [place] [address]- 1735 Sep, [facility] [address] [facility] [id number], [place] [address]- 2684 Sep, [facility] [address] [facility] [id number] 4041 Sep, [facility] [address] [facility] [id number], [place] [address]- 5581 Sep, [facility] [address] [facility] [id number], [place] [address]- 3390 05 Sep, 2011 [facility] [address] [facility] [id number], [place] [address]- 3890 15 Aug, 2011 [facility] [address] [facility] [id number], [place] [address]- 3066 18 Jul, 2011 [facility] [address] [facility] [id number], [place] [address]- 7323 Sep, [facility] [address] [facility] [id number], [place] [address]- 8302 15 Aug, 2010 [facility] [address] [facility] [id number], [place] [address]- 0725 Aug, [facility] [address] [id number] [address]- 3363 Aug, [facility] [address] [facility] [id number], [place] [address]- 3805 Aug, [facility] [address] [facility] [id number], [place] [address]- 7886 Jul, [facility] [address] [facility] [id number], [place] [address]- 9146 Jul, [facility] [address] [facility] [id number], [place] [address]- 1379 Jul, IMMUNIZATIONS No Known Immunizations SOCIAL HISTORY Never Assessed REASON FOR VISIT Morphine 02/08 PLAN OF CARE VITAL SIGNS MEDICATIONS Medication Instructions Dosage Frequency Start Date End Date Duration Status MS Contin 30 MG Orally every 12 hrs 1 tablet 12h Jan, February, 28 days Active Oxycodone-Acetaminophen 10-325 MG Orally 3 times a day 1 tablet as needed 8h Jan, 28 days Active RESULTS No Results PROCEDURES [...]
--- OUTSIDE RECORDS SUMMARY | 2018-11-21 09:34 | XMS REPORT ---
Author Author NEERU CANO Organization [facility] Address [address] [place] [address] Care Team Providers Care Reed Worker Name Role Phone NEERU CANO Unavailable PROBLEMS Type Condition ICD9-CM Code RZG68-SY Code Onset Dates Condition Status SNOMED Code Problem Dysthymia F34.1 Active 87085729 Problem Esophageal dysphagia R13.10 Active 74103268 Problem Gastroesophageal reflux disease, esophagitis presence not specified K21.9 Active 071972921 Problem Lumbar radiculopathy M54.16 Active 543107583 Problem Other chronic pain G89.29 Active 77870699 Problem Chronic obstructive pulmonary disease, unspecified COPD type J44.9 Active 17224719 Problem History of anemia Z86.2 Active 822481784 Problem Chronic pain due to trauma G89.21 Active 817706167 Problem Atrophic gastritis without hemorrhage K29.40 Active 71220496 Problem Acute allergic rhinitis, unspecified seasonality, unspecified trigger J30.9 Active 83889214 ALLERGIES No Information ENCOUNTERS Encounter Location Date Diagnosis [place] [id number] [place] [address] 21290- 5623 13 Apr, 2018 Strain of neck muscle, subsequent encounter S16.1XXD and Lumbar radiculopathy M54.16 [place] [id number] [place] [address] 29913- 8915 11 Apr, 2018 Atrophic gastritis without hemorrhage K29.40 and Chronic pain due to trauma G89.21 [place] [address] [address]99- 3827 14 Mar, 2018 Chronic pain due to trauma G89.21 ; Lumbar radiculopathy M54.16 ; Dysthymia F34.1 ; Pain in right shoulder M25.511 ; Pain in left shoulder M25.512 ; Other chronic pain G89.29 and Chronic obstructive pulmonary disease, unspecified COPD type J44.9 [place] [id number] [place] [address] 42937- 5216 Mar, Chronic pain due to trauma G89.21 and Atrophic gastritis without hemorrhage K29.40 [place] [id number] [place] [address] 21184- 6466 February, Chronic pain due to trauma G89.21 and Atrophic gastritis without hemorrhage K29.40 [place] [address] 46924- 5236 Jan, Chronic pain due to trauma G89.21 and Atrophic gastritis without hemorrhage K29.40 [place] [address] [place] [address]- 5272 Jan, Atrophic gastritis without hemorrhage K29.40 [place] [address] 09176- 3443 Dec, Atrophic gastritis without hemorrhage K29.40 and Chronic pain due to trauma G89.21 [place] [address] 39136- 2022 Dec, Chronic pain due to trauma G89.21 and Lumbar radiculopathy M54.16 [place] [id number] [place] [address] 01844- 5253 Dec, Lumbar radiculopathy M54.16 [place] [id number] [place] [address] 37427- 0497 Dec, [place] [address] 62117- 5159 Nov, Chronic pain due to trauma G89.21 [place] [address] 48775- 9287 Nov, BMI 40.0-44.9, adult Z68.41 ; Lumbar radiculopathy M54.16 and Dysthymia F34.1 [place] [address] [place] [id number]- 2546 Nov, [facility] [address] [address] 5[address] Nov, [facility] [id number] [place] [address] 025953- 5346 Oct, [facility] [id number] [place] [address] 86612- 5051 Oct, Chronic pain due to trauma G89.21 ; Gastroesophageal reflux disease, esophagitis presence not specified K21.9 ; Dysthymia F34.1 ; Lumbar radiculopathy M54.16 ; Esophageal dysphagia R13.10 and BMI 40.0-44.9, adult Z68.41 [facility] [id number] [place] [address] 04968 -9682 Sep, History of anemia Z86.2 and Acute allergic rhinitis, unspecified seasonality, unspecified trigger J30.9 [facility] [id number] [place] [address] 44322- 9030 Sep, [facility] [id number] [place] [address] 37883- 2246 14 Jul, 2016 [facility] [id number] [place] [address] 89076- 2694 14 Jan, 2015 [facility] [id number] [place] [address] 85012- 2915 Jan, [facility] [id number] [place] [address] 19353- 8062 Nov, [facility] [id number] [place] [address] 16716- 5677 Nov, [facility] [id number] [place] [address] 07565- 8775 Oct, [facility] [id number] [place] [address] 97197- 6318 Aug, [facility] [address] [place] [address] [facility] [place] [address]- 0493 Aug, [facility] [place] [facility] [address] [id number] [place] [address]- 6505 Jul, [facility] [place] [facility] [address] [id number] [place] [address]- 5875 Jul, [facility] [place] [facility] [address] [id number] [place] [address]- 7858 Jul, [facility] [place] [facility] [address] [id number] [place] [address]- 6394 Jul, [facility] [place] [facility] [address] [id number] [place] [address]- 6835 Jul, [facility] [place] [facility] [address] [id number] [place] [address]- 5766 Jun, [facility] [place] [facility] [address] [id number] [place] [address]- 3363 Jun, [facility] [place] [facility] [address] [id number] [place] [address]- 9877 Jun, [facility] [place] [facility] [address] [id number] [place] [address]- 7880 May, [facility] [place] [facility] [address] [id number] [place] [address]- 3278 May, [facility] [place] [facility] [address] [id number] [place] [address]- 5722 May, [facility] [place] [facility] [address] [id number] [place] [address]- 5991 May, [facility] [place] [facility] [address] [id number] [place] [address]- 1652 Apr, [facility] [place] [facility] [address] [id number] [place] [address] 2544 Apr, [facility] [place] [facility] [address] [id number] [place] [address]- 1201 Apr, [facility] [place] [facility] [address] [id number] [place] [address]- 2543 Apr, [facility] [address] [id number] [place] [address]- 2546 Mar, [facility] [address] [id number] [place] [address]- 2546 Mar, [facility] [address] [id number] [place] [address]- 2546 Mar, [facility] [address] [id number] [place] [address]- 254 February, [facility] [address] [id number] [place] [address]- 5916 February, [facility] [address] [id number] [place] [address]- 8410 February, [facility] [address] [id number] [place] [address]- 9836 February, [facility] [address] [id number] [place] [address]- 4094 February, [facility] [address] [id number] [place] [address]- 0496 February, [facility] [address] [id number] [place] [address]- 2479 Jan, [facility] [address] [id number] [place] [address]- 2549 Jan, [facility] [address] [id number] [place] [address]- 2549 Dec, [facility] [place] [facility] [address] [id number] [place] [address]- 2546 Dec, [facility] [address] [id number] [place] [address]- 2546 Dec, [facility] [address] [id number] [place] [address]- 1102 05 Dec, 2012 [facility] [address] [id number] [place] [address]- 4886 04 Dec, 2012 [facility] [address] [id number] [place] [address]- 0926 21 Nov, 2012 [facility] [address] [id number] [place] [address]- 5206 13 Nov, 2012 [facility] [address] [id number] [place] [address]- 8786 12 Nov, 2012 [facility] [address] [id number] [place] [address]- 3706 07 Nov, 2012 [facility] [address] [id number] [place] [address]- 2696 Nov, [facility] [address] [id number] [place] [address]- 3768 Oct, [facility] [address] [id number] [place] [address]- 9698 Oct, [facility] [address] [id number] [place] [address]- 1599 Sep, [facility] [address] [id number] [place] [address]- 4820 Sep, [facility] [address] [id number] [place] [address]- 3016 Sep, [facility] [place] [facility] [address] [id number] [place] [address]- 2546 Sep, [facility] [place] [facility] [address] [id number] [place] [address]- 4546 Sep, [facility] [place] [facility] [address] [id number] [place] 4446 Sep, [facility] [address] [id number] [place] [address]- 7449 05 Sep, 2012 [facility] [place] [facility] [address] [id number] [place] [address]- 8543 Sep, [facility] [place] [facility] [address] [id number] [place] [address]- 5652 Aug, [facility] [place] [facility] [address] [id number] [place] [address]- 6992 Aug, [facility] [place] [facility] [address] [id number] [place] [address]- 9741 Aug, [facility] [place] [facility] [address] [id number] [place] [address]- 8878 Aug, [facility] [place] [facility] [address] [id number] [place] [address]- 4017 Aug, [facility] [place] [facility] [address] [id number] [place] [address]- 3234 Aug, [facility] [place] [facility] [address] [id number] [place] [address]- 2369 Aug, [facility] [place] [facility] [address] [id number] [place] [address]- 6809 Jul, [facility] [place] [facility] [address] [id number] [place] [address]- 9480 Jul, [facility] [place] [facility] [address] [id number] [place] [address]- 5473 Jul, [facility] [place] [facility] [address] [id number] [place] [address]- 9001 Jul, [facility] [place] [facility] [address] [id number] [place] [address]- 9473 Jul, [facility] [place] [facility] [address] [id number] [place] [address]- 7789 Jul, [facility] [place] [facility] [address] [id number] [place] [address]- 1881 Jul, [facility] [place] [facility] [address] [id number] [place] [address]- 2123 Jun, [facility] [place] [facility] [address] [id number] [place] [address] 2542 Jun, [facility] [place] [facility] [address] [id number] [place] [address]- 2546 Jun, [facility] [place] [facility] [address] [id number] [place] [address] 2546 May, [facility] [place] [facility] [address] [id number] [place] [address]- 2546 May, [facility] [place] [facility] [address] [id number] [place] [address]- 6672 Apr, [facility] [place] [facility] [address] [id number] [place] [address]- 8036 Apr, [facility] [place] [facility] [address] [id number] [place] [address]- 3855 Mar, [facility] [place] [facility] [address] [id number] [place] [address]- 7686 February, [facility] [place] [facility] [address] [id number] [place] [address]- 4880 February, [facility] [place] [facility] [address] [id number] [place] [address]- 2876 February, [facility] [place] [facility] [address] [id number] [place] [address]- 0086 February, [facility] [place] [facility] [address] [id number] [place] [address]- 4649 February, [facility] [place] [facility] [address] [id number] [place] [address]- 0496 February, [facility] [place] [facility] [address] [id number] [place] [address]- 8356 February, [facility] [place] [facility] [address] [id number] [place] [address]- 4564 Jan, [facility] [place] [facility] [address] [id number] [place] [address]- 9882 30 Dec, 2011 [facility] [address] [id number] [place] [address]- 0073 28 Dec, 2011 [facility] [address] [id number] [place] [address]- 7386 29 Oct, 2011 [facility] [address] [id number] [place] [address]- 5885 Oct, [facility] [address] [id number] [place] [address]- 4644 Oct, [facility] [address] [id number] [place] [address]- 8111 Oct, [facility] [address] [id number] [place] [address]- 6553 Oct, [facility] [address] [id number] [place] [address]- 6320 Oct, [facility] [address] [id number] [place] [address]- 0590 Oct, [facility] [address] [id number] [place] [address]- 8313 Oct, [facility] [address] [id number] [place] [address]- 5362 Oct, [facility] [address] [id number] [place] [address]- 6812 Sep, [facility] [address] [id number] [place] [address]- 4867 Sep, [facility] [address] [id number] [place] [address]- 1771 Sep, [facility] [address] [id number] [place] [address]- 0979 Sep, [facility] [address] [id number] [place] [address]- 7148 Sep, [facility] [address] [facility] [id number], [place] [address]- 2091 Sep, [facility] [address] [facility] [id number], [place] [address]- 6569 Sep, [facility] [address] [facility] [id number] 6742 Sep, [facility] [address] [facility] [id number], [place] [address]- 2802 Sep, [facility] [address] [facility] [id number] [place] [address]- 5135 05 Sep, 2011 [facility] [address] [facility] [id number], [place] [address]- 6456 15 Aug, 2011 [facility] [address] [facility] [id number], [place] [address]- 5398 18 Jul, 2011 [facility] [address] [facility] [id number], [place] [address]- 9706 Sep, [facility] [address] [facility] [id number], [place] [address]- 0179 Aug, [facility] [address] [facility] [id number], [place] [address]- 5632 Aug, [facility] [address] [id number] [address]- 5017 Aug, [facility] [address] [facility] [id number], [place] [address]- 2785 Aug, [facility] [address] [facility] [id number], [place] [address]- 8072 Jul, [facility] [address] [facility] [id number], [place] [address]- 2904 Jul, [facility] [address] [facility] [id number], [place] [address]- 9730 Jul, IMMUNIZATIONS No Known Immunizations SOCIAL HISTORY Never Assessed REASON FOR VISIT Morphine and oxycodone 01/11 PLAN OF CARE VITAL SIGNS MEDICATIONS Medication Instructions Dosage Frequency Start Date End Date Duration Status Oxycodone-Acetaminophen 10-325 MG Orally 3 times a day 1 tablet as needed 8h Dec, 28 days Active Morphine Sulfate 30 MG Orally 2 times a day 1 tablet 12h Dec, 28 days Active RESULTS No Results PROCEDURES [...]
--- OUTSIDE RECORDS SUMMARY | 2018-11-21 09:34 | XMS REPORT ---
Author Author NEERU CANO Organization [facility] Address [address] [place] [address] Care Team Providers Care Assistant Account Manager Name Role Phone NEERU CANO Unavailable PROBLEMS Type Condition ICD9-CM Code MAW12-GN Code Onset Dates Condition Status SNOMED Code Problem Dysthymia F34.1 Active 13092870 Problem Esophageal dysphagia R13.10 Active 59853558 Problem Gastroesophageal reflux disease, esophagitis presence not specified K21.9 Active 093022532 Problem Lumbar radiculopathy M54.16 Active 919174227 Problem Other chronic pain G89.29 Active 99481532 Problem Chronic obstructive pulmonary disease, unspecified COPD type J44.9 Active 37614545 Problem History of anemia Z86.2 Active 724358651 Problem Chronic pain due to trauma G89.21 Active 006083026 Problem Atrophic gastritis without hemorrhage K29.40 Active 60441215 Problem Acute allergic rhinitis, unspecified seasonality, unspecified trigger J30.9 Active 21174702 ALLERGIES No Information ENCOUNTERS Encounter Location Date Diagnosis [place] [id number] [place] [address] 17830- 2876 13 Apr, 2018 Strain of neck muscle, subsequent encounter S16.1XXD and Lumbar radiculopathy M54.16 [place] [id number] [place] [address] 10793- 3682 11 Apr, 2018 Atrophic gastritis without hemorrhage K29.40 and Chronic pain due to trauma G89.21 [place] [address] 65[address]- 3865 14 Mar, 2018 Chronic pain due to trauma G89.21 ; Lumbar radiculopathy M54.16 ; Dysthymia F34.1 ; Pain in right shoulder M25.511 ; Pain in left shoulder M25.512 ; Other chronic pain G89.29 and Chronic obstructive pulmonary disease, unspecified COPD type J44.9 [place] [id number] [place] [address] 17441- 4574 Mar, Chronic pain due to trauma G89.21 and Atrophic gastritis without hemorrhage K29.40 [place] [id number] [place] [address] 41962- 1792 February, Chronic pain due to trauma G89.21 and Atrophic gastritis without hemorrhage K29.40 [place] [address] 22177- 0276 Jan, Chronic pain due to trauma G89.21 and Atrophic gastritis without hemorrhage K29.40 [place] [address] [place] [address]64- 5319 Jan, Atrophic gastritis without hemorrhage K29.40 [place] [address] 90603- 3863 Dec, Atrophic gastritis without hemorrhage K29.40 and Chronic pain due to trauma G89.21 [place] [address] 91418- 6207 Dec, Chronic pain due to trauma G89.21 and Lumbar radiculopathy M54.16 [place] [id number] [place] [address] 28770- 9369 Dec, Lumbar radiculopathy M54.16 [place] [id number] [place] [address] 73025- 8396 Dec, [place] [address] 61517- 7229 Nov, Chronic pain due to trauma G89.21 [place] [address] 16018- 2147 Nov, BMI 40.0-44.9, adult Z68.41 ; Lumbar radiculopathy M54.16 and Dysthymia F34.1 [place] [address] [place] [id number] 2546 Nov, [facility] [address] [address] Nov, [facility] [id number] [place] [address] 900557- 0117 Oct, [facility] [id number] [place] [address] 46375- 9045 Oct, Chronic pain due to trauma G89.21 ; Gastroesophageal reflux disease, esophagitis presence not specified K21.9 ; Dysthymia F34.1 ; Lumbar radiculopathy M54.16 ; Esophageal dysphagia R13.10 and BMI 40.0-44.9, adult Z68.41 [facility] [id number] [place] [address] 08522 -4387 Sep, History of anemia Z86.2 and Acute allergic rhinitis, unspecified seasonality, unspecified trigger J30.9 [facility] [id number] [place] [address] 94455- 2839 Sep, [facility] [id number] [place] [address] 21042- 4275 14 Jul, 2016 [facility] [id number] [place] [address] 03811- 8645 14 Jan, 2015 [facility] [id number] [place] [address] 82138- 7417 Jan, [facility] [id number] [place] [address] 61641- 2710 Nov, [facility] [id number] [place] [address] 10228- 9313 Nov, [facility] [id number] [place] [address] 56237- 6391 Oct, [facility] [id number] [place] [address] 11170- 6203 Aug, [facility] [address] [id number] [place] [address]- 6630 Aug, [facility] [place] [facility] [address] [id number] [place] [address]- 8788 Jul, [facility] [place] [facility] [address] [id number] [place] [address]- 8431 Jul, [facility] [place] [facility] [address] [id number] [place] [address]- 3724 Jul, [facility] [place] [facility] [address] [id number] [place] [address]- 8364 Jul, [facility] [place] [facility] [address] [id number] [place] [address]- 7394 Jul, [facility] [place] [facility] [address] [id number] [place] [address]- 7825 Jun, [facility] [place] [facility] [address] [id number] [place] [address]- 4045 Jun, [facility] [place] [facility] [address] [id number] [place] [address]- 2656 Jun, [facility] [place] [facility] [address] [id number] [place] [address]- 6244 May, [facility] [place] [facility] [address] [id number] [place] [address]- 0028 May, [facility] [place] [facility] [address] [id number] [place] [address]- 8569 May, [facility] [place] [facility] [address] [id number] [place] [address]- 5661 May, [facility] [place] [facility] [address] [id number] [place] [address]- 5914 Apr, [facility] [place] [facility] [address] [id number] [place] [address] 2548 Apr, [facility] [place] [facility] [address] [id number] [place] [address]- 3670 Apr, [facility] [place] [facility] [address] [id number] [place] [address]- 2548 Apr, [facility] [address] [id number] [place] [address]- 2546 Mar, [facility] [address] [id number] [place] [address]- 2546 Mar, [facility] [address] [id number] [place] [address]- 2546 Mar, [facility] [address] [id number] [place] [address]- 2542 February, [facility] [address] [id number] [place] [address]- 7716 February, [facility] [address] [id number] [place] [address]- 4163 February, [facility] [address] [id number] [place] [address]- 5416 February, [facility] [address] [id number] [place] [address]- 1421 February, [facility] [address] [id number] [place] [address]- 1306 February, [facility] [address] [id number] [place] [address]- 6601 Jan, [facility] [address] [id number] [place] [address]- 2543 Jan, [facility] [address] [id number] [place] [address]- 2543 Dec, [facility] [place] [facility] [address] [id number] [place] [address]- 2546 Dec, [facility] [address] [id number] [place] [address]- 2546 Dec, [facility] [address] [id number] [place] [address]- 0623 05 Dec, 2012 [facility] [address] [id number] [place] [address]- 8426 04 Dec, 2012 [facility] [address] [id number] [place] [address]- 0926 21 Nov, 2012 [facility] [address] [id number] [place] [address]- 4176 13 Nov, 2012 [facility] [address] [id number] [place] [address]- 6816 12 Nov, 2012 [facility] [address] [id number] [place] [address]- 0536 07 Nov, 2012 [facility] [address] [id number] [place] [address]- 9626 Nov, [facility] [address] [id number] [place] [address]- 7494 Oct, [facility] [address] [id number] [place] [address]- 8956 Oct, [facility] [address] [id number] [place] [address]- 9891 Sep, [facility] [address] [id number] [place] [address]- 6342 Sep, [facility] [address] [id number] [place] [address]- 8286 Sep, [facility] [place] [facility] [address] [id number] [place] [address]- 2546 Sep, [facility] [place] [facility] [address] [id number] [place] [address]- 6906 Sep, [facility] [place] [facility] [address] [id number] [place] 5816 Sep, [facility] [address] [id number] [place] [address]- 5522 05 Sep, 2012 [facility] [place] [facility] [address] [id number] [place] [address]- 2406 Sep, [facility] [place] [facility] [address] [id number] [place] [address]- 9709 Aug, [facility] [place] [facility] [address] [id number] [place] [address]- 7209 Aug, [facility] [place] [facility] [address] [id number] [place] [address]- 1777 Aug, [facility] [place] [facility] [address] [id number] [place] [address]- 0763 Aug, [facility] [place] [facility] [address] [id number] [place] [address]- 7739 Aug, [facility] [place] [facility] [address] [id number] [place] [address]- 4532 Aug, [facility] [place] [facility] [address] [id number] [place] [address]- 4744 Aug, [facility] [place] [facility] [address] [id number] [place] [address]- 9274 Jul, [facility] [place] [facility] [address] [id number] [place] [address]- 1436 Jul, [facility] [place] [facility] [address] [id number] [place] [address]- 7595 Jul, [facility] [place] [facility] [address] [id number] [place] [address]- 0508 Jul, [facility] [place] [facility] [address] [id number] [place] [address]- 7745 Jul, [facility] [place] [facility] [address] [id number] [place] [address]- 5610 Jul, [facility] [place] [facility] [address] [id number] [place] [address]- 0180 Jul, [facility] [place] [facility] [address] [id number] [place] [address]- 4947 Jun, [facility] [place] [facility] [address] [id number] [place] [address] 2542 Jun, [facility] [place] [facility] [address] [id number] [place] [address]- 2546 Jun, [facility] [place] [facility] [address] [id number] [place] [address] 2546 May, [facility] [place] [facility] [address] [id number] [place] [address]- 2546 May, [facility] [place] [facility] [address] [id number] [place] [address]- 3504 Apr, [facility] [place] [facility] [address] [id number] [place] [address]- 0196 Apr, [facility] [place] [facility] [address] [id number] [place] [address]- 1899 Mar, [facility] [place] [facility] [address] [id number] [place] [address]- 8946 February, [facility] [place] [facility] [address] [id number] [place] [address]- 1670 February, [facility] [place] [facility] [address] [id number] [place] [address]- 7236 February, [facility] [place] [facility] [address] [id number] [place] [address]- 1550 February, [facility] [place] [facility] [address] [id number] [place] [address]- 2523 February, [facility] [place] [facility] [address] [id number] [place] [address]- 1926 February, [facility] [place] [facility] [address] [id number] [place] [address]- 6996 February, [facility] [place] [facility] [address] [id number] [place] [address]- 1765 Jan, [facility] [place] [facility] [address] [id number] [place] [address]- 8268 30 Dec, 2011 [facility] [address] [id number] [place] [address]- 2797 28 Dec, 2011 [facility] [address] [id number] [place] [address]- 9406 29 Oct, 2011 [facility] [address] [id number] [place] [address]- 9944 Oct, [facility] [address] [id number] [place] [address]- 6210 Oct, [facility] [address] [id number] [place] [address]- 2101 Oct, [facility] [address] [id number] [place] [address]- 5438 Oct, [facility] [address] [id number] [place] [address]- 5813 Oct, [facility] [address] [id number] [place] [address]- 9735 Oct, [facility] [address] [id number] [place] [address]- 4068 Oct, [facility] [address] [id number] [place] [address]- 7407 Oct, [facility] [address] [id number] [place] [address]- 7535 Sep, [facility] [address] [id number] [place] [address]- 3765 Sep, [facility] [address] [id number] [place] [address]- 3323 Sep, [facility] [address] [id number] [place] [address]- 5944 Sep, [facility] [address] [id number] [place] [address]- 8339 Sep, [facility] [address] [id number], [place] [address]- 7535 Sep, [facility] [address] [id number] [place] [address]- 7946 Sep, [facility] [address] [facility] [id number] [address] Sep, [facility] [address] [id number] [place] [address]- 0597 Sep, [facility] [address] [id number] [place] [address]- 0330 05 Sep, 2011 [facility] [address] [id number], [place] [address]- 0955 15 Aug, 2011 [facility] [address] [facility] [id number], [place] [address]- 0420 18 Jul, 2011 [facility] [address] [facility] [id number], [place] [address]- 0486 Sep, [facility] [address] [facility] [id number], [place] [address]- 5280 15 Aug, 2010 [facility] [address] [facility] [id number], [place] [address]- 7499 Aug, [facility] [address] [facility] [id number], [place] [address]- 5213 Aug, [facility] [address] [facility] [id number], [place] [address]- 8875 Aug, [facility] [address] [facility] [id number], [place] [address]- 5584 Jul, [facility] [address] [facility] [id number], [place] [address]- 6255 Jul, [facility] [address] [facility] [id number], [place] [address]- 7406 Jul, IMMUNIZATIONS No Known Immunizations SOCIAL HISTORY Never Assessed REASON FOR VISIT Lab (walk-in) PLAN OF CARE VITAL SIGNS MEDICATIONS No Known Medications RESULTS Name Result Date Reference Range VITAMIN B12 2018-01-22 VITAMIN B12 [id number] PROCEDURES Procedure Date Ordered Result Body Site LAB [facility] January 22, 2018 SHRUTI CHRISTINE* January 22, 2018 INSTRUCTIONS MEDICATIONS ADMINISTERED No Known Medications [...]
--- OUTSIDE RECORDS SUMMARY | 2018-11-21 09:35 | XMS REPORT ---
Author Author NEERU CANO Organization 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 Name Role Phone NEERU CANO Unavailable PROBLEMS Type Condition ICD9-CM Code KGZ45-DC Code Onset Dates Condition Status SNOMED Code Problem Dysthymia F34.1 Active 30811230 Problem Esophageal dysphagia R13.10 Active 97910357 Problem Gastroesophageal reflux disease, esophagitis presence not specified K21.9 Active 786875387 Problem Lumbar radiculopathy M54.16 Active 448370332 Problem Other chronic pain G89.29 Active 02653550 Problem Chronic obstructive pulmonary disease, unspecified COPD type J44.9 Active 33564374 Problem History of anemia Z86.2 Active 935107834 Problem Chronic pain due to trauma G89.21 Active 313461844 Problem Atrophic gastritis without hemorrhage K29.40 Active 94106272 Problem Acute allergic rhinitis, unspecified seasonality, unspecified trigger J30.9 Active 70811335 ALLERGIES No Information ENCOUNTERS Encounter Location Date Diagnosis [place] [id number] [place] [address]31- 2762 Apr, Acute strain of neck muscle, initial encounter S16.1XXA and Lumbar radiculopathy M54.16 [place] [id number] [place] [address] 86472- 1930 Apr, Atrophic gastritis without hemorrhage K29.40 and Chronic pain due to trauma G89.21 [place] [address] [address]- [address]4 14 Mar, 2018 Chronic pain due to trauma G89.21 ; Lumbar radiculopathy M54.16 ; Dysthymia F34.1 ; Pain in right shoulder M25.511 ; Pain in left shoulder M25.512 ; Other chronic pain G89.29 and Chronic obstructive pulmonary disease, unspecified COPD type J44.9 [place] [id number] [place] [address] 92520- 7927 Mar, Chronic pain due to trauma G89.21 and Atrophic gastritis without hemorrhage K29.40 [place] [id number] [place] [address] 49310- 7199 February, Chronic pain due to trauma G89.21 and Atrophic gastritis without hemorrhage K29.40 [place] [address] 77356- 9764 Jan, Chronic pain due to trauma G89.21 and Atrophic gastritis without hemorrhage K29.40 [place] [address] [place] 6[address]- 5443 Jan, Atrophic gastritis without hemorrhage K29.40 [place] [address] 79388- 4540 Dec, Atrophic gastritis without hemorrhage K29.40 and Chronic pain due to trauma G89.21 [place] [address] 35919- 6095 Dec, Chronic pain due to trauma G89.21 and Lumbar radiculopathy M54.16 [place] [id number] [place] [address] 13726- 8200 Dec, Lumbar radiculopathy M54.16 [place] [id number] [place] [address] 80425- 9687 Dec, [place] [address] 75392- 6447 Nov, Chronic pain due to trauma G89.21 [place] [address] 31380- 7221 Nov, BMI 40.0-44.9, adult Z68.41 ; Lumbar radiculopathy M54.16 and Dysthymia F34.1 [place] [address] [id number]- [address] Nov, [facility] [address] [address] Nov, [facility] [id number] [place] [address] 195924- 4508 Oct, [facility] [id number] [place] [address] 75800- 9032 Oct, Chronic pain due to trauma G89.21 ; Gastroesophageal reflux disease, esophagitis presence not specified K21.9 ; Dysthymia F34.1 ; Lumbar radiculopathy M54.16 ; Esophageal dysphagia R13.10 and BMI 40.0-44.9, adult Z68.41 [facility] [id number] [place] [address] 31059 -4575 Sep, History of anemia Z86.2 and Acute allergic rhinitis, unspecified seasonality, unspecified trigger J30.9 [facility] [id number] [place] [address] 91685- 5549 Sep, [facility] [id number] [place] [address] 60393- 7093 14 Jul, 2016 [facility] [id number] [place] [address] 23340- 8799 14 Jan, 2015 [facility] [id number] [place] [address] 62007- 8129 Jan, [facility] [id number] [place] [address] 25373- 1290 Nov, [facility] [id number] [place] [address] 39161- 8457 Nov, [facility] [id number] [place] [address] 08329- 1294 Oct, [facility] [id number] [place] [address] 22024- 0423 Aug, [facility] [address] [address] [place] [address]- 1224 Aug, [facility] [place] [facility] [address] [id number] [place] [address]- 5131 Jul, [facility] [place] [facility] [address] [id number] [place] [address]- 3660 Jul, [facility] [place] [facility] [address] [id number] [place] [address]- 0952 Jul, [facility] [place] [facility] [address] [id number] [place] [address]- 9548 Jul, [facility] [place] [facility] [address] [id number] [place] [address]- 1440 Jul, [facility] [place] [facility] [address] [id number] [place] [address]- 9837 Jun, [facility] [place] [facility] [address] [id number] [place] [address]- 1705 Jun, [facility] [place] [facility] [address] [id number] [place] [address]- 0932 Jun, [facility] [place] [facility] [address] [id number] [place] [address]- 2912 May, [facility] [place] [facility] [address] [id number] [place] [address]- 4006 May, [facility] [place] [facility] [address] [id number] [place] [address]- 9037 May, [facility] [place] [facility] [address] [id number] [place] [address]- 3898 May, [facility] [place] [facility] [address] [id number] [place] [address]- 9739 Apr, [facility] [place] [facility] [address] [id number] [place] [address] 2540 Apr, [facility] [place] [facility] [address] [id number] [place] [address]- 2363 Apr, [facility] [place] [facility] [address] [id number] [place] [address]- 2548 Apr, [facility] [address] [id number] [place] [address]- 2546 Mar, [facility] [address] [id number] [place] [address]- 2546 Mar, [facility] [address] [id number] [place] [address]- 2546 Mar, [facility] [address] [id number] [place] [address]- 2541 February, [facility] [address] [id number] [place] [address]- 2616 February, [facility] [address] [id number] [place] [address]- 3087 February, [facility] [address] [id number] [place] [address]- 3916 February, [facility] [address] [id number] [place] [address]- 9053 February, [facility] [address] [id number] [place] [address]- 2506 February, [facility] [address] [id number] [place] [address]- 9563 Jan, [facility] [address] [id number] [place] [address]- 254 Jan, [facility] [address] [id number] [place] [address]- 2543 Dec, [facility] [place] [facility] [address] [id number] [place] [address]- 2546 Dec, [facility] [address] [id number] [place] [address]- 2546 Dec, [facility] [address] [id number] [place] [address]- 6532 05 Dec, 2012 [facility] [address] [id number] [place] [address]- 3246 04 Dec, 2012 [facility] [address] [id number] [place] [address]- 2766 21 Nov, 2012 [facility] [address] [id number] [place] [address]- 8776 13 Nov, 2012 [facility] [address] [id number] [place] [address]- 0496 12 Nov, 2012 [facility] [address] [id number] [place] [address]- 4556 07 Nov, 2012 [facility] [address] [id number] [place] [address]- 3746 Nov, [facility] [address] [id number] [place] [address]- 3958 Oct, [facility] [address] [id number] [place] [address]- 2928 Oct, [facility] [address] [id number] [place] [address]- 6761 Sep, [facility] [address] [id number] [place] [address]- 7273 Sep, [facility] [address] [id number] [place] [address]- 8176 Sep, [facility] [place] [facility] [address] [id number] [place] [address]- 2546 Sep, [facility] [place] [facility] [address] [id number] [place] [address]- 5696 Sep, [facility] [place] [facility] [address] [id number] [place] [address] Sep, [facility] [address] [id number] [place] [address]- 9217 05 Sep, 2012 [facility] [place] [facility] [address] [id number] [place] [address]- 0958 Sep, [facility] [place] [facility] [address] [id number] [place] [address]- 5435 Aug, [facility] [place] [facility] [address] [id number] [place] [address]- 4914 Aug, [facility] [place] [facility] [address] [id number] [place] [address]- 7915 Aug, [facility] [place] [facility] [address] [id number] [place] [address]- 8766 Aug, [facility] [place] [facility] [address] [id number] [place] [address]- 2411 Aug, [facility] [place] [facility] [address] [id number] [place] [address]- 3162 Aug, [facility] [place] [facility] [address] [id number] [place] [address]- 9434 Aug, [facility] [place] [facility] [address] [id number] [place] [address]- 5195 Jul, [facility] [place] [facility] [address] [id number] [place] [address]- 9564 Jul, [facility] [place] [facility] [address] [id number] [place] [address]- 0257 Jul, [facility] [place] [facility] [address] [id number] [place] [address]- 9788 Jul, [facility] [place] [facility] [address] [id number] [place] [address]- 2590 Jul, [facility] [place] [facility] [address] [id number] [place] [address]- 0993 Jul, [facility] [place] [facility] [address] [id number] [place] [address]- 5459 Jul, [facility] [place] [facility] [address] [id number] [place] [address]- 1589 Jun, [facility] [place] [facility] [address] [id number] [place] [address] 2542 Jun, [facility] [place] [facility] [address] [id number] [place] [address]- 2546 Jun, [facility] [place] [facility] [address] [id number] [place] [address] 2546 May, [facility] [place] [facility] [address] [id number] [place] [address]- 2546 May, [facility] [place] [facility] [address] [id number] [place] [address]- 1347 Apr, [facility] [place] [facility] [address] [id number] [place] [address]- 7426 Apr, [facility] [place] [facility] [address] [id number] [place] [address]- 5866 Mar, [facility] [place] [facility] [address] [id number] [place] [address]- 6926 February, [facility] [place] [facility] [address] [id number] [place] [address]- 4827 February, [facility] [place] [facility] [address] [id number] [place] [address]- 2266 February, [facility] [place] [facility] [address] [id number] [place] [address]- 2897 February, [facility] [place] [facility] [address] [id number] [place] [address]- 1746 February, [facility] [place] [facility] [address] [id number] [place] [address]- 9326 February, [facility] [place] [facility] [address] [id number] [place] [address]- 8806 February, [facility] [place] [facility] [address] [id number] [place] [address]- 4666 Jan, [facility] [place] [facility] [address] [id number] [place] [address]- 9367 30 Dec, 2011 [facility] [address] [id number] [place] [address]- 5827 28 Dec, 2011 [facility] [address] [id number] [place] [address]- 5646 29 Oct, 2011 [facility] [address] [id number] [place] [address]- 8904 Oct, [facility] [address] [id number] [place] [address]- 8256 Oct, [facility] [address] [id number] [place] [address]- 1837 Oct, [facility] [address] [id number] [place] [address]- 0692 Oct, [facility] [address] [id number] [place] [address]- 5583 Oct, [facility] [address] [id number] [place] [address]- 4292 Oct, [facility] [address] [id number] [place] [address]- 8384 Oct, [facility] [address] [id number] [place] [address]- 3272 Oct, [facility] [address] [id number] [place] [address]- 5609 Sep, [facility] [address] [id number] [place] [address]- 5656 Sep, [facility] [address] [id number] [place] [address]- 6278 Sep, [facility] [address] [id number] [place] [address]- 1158 Sep, [facility] [address] [id number] [place] [address]- 0577 Sep, [facility] [address] [id number] [address]- 0847 Sep, [facility] [address] [facility] [id number] [address] 3668 Sep, [facility] [address] [facility] [id number] [address] Sep, [facility] [address] [facility] [id number] [address]- [address] Sep, [facility] [address] [facility] [id number], [place] [address]- 8041 05 Sep, 2011 [facility] [address] [facility] [id number], [place] [address]- 3781 15 [address], [address] [facility] [address] [facility] [id number], [place] [address]- 3776 18 Jul, [address] [facility] [address] [facility] [id number], [place] [address]- 9741 Sep, [facility] [address] [facility] [id number], [place] [address]- 4482 [address], [address] [facility] [address] [facility] [id number], [place] [address]- [address]558 Aug, [facility] [address] [id number], [place] [address]- 1244 Aug, [facility] [address] [facility] [id number], [place] [address]- 3234 Aug, [facility] [address] [facility] [id number], [place] [address]- [address] Jul, [facility] [address] [facility] [id number], [place] [address]- 2404 Jul, [facility] [address] [facility] [id number], [place] [address]- 4307 Jul, IMMUNIZATIONS No Known Immunizations SOCIAL HISTORY Never Assessed REASON FOR VISIT 90 day supply PLAN OF CARE VITAL SIGNS MEDICATIONS Medication Instructions Dosage Frequency Start Date End Date Duration Status Zetia 10 mg Orally Once a day 1 tablet 24h 90 days Active Mirtazapine 45 MG Orally Once a day 1 tablet at bedtime 24h 90 days Active Gabapentin 600 MG Orally 3 times a day 1 tablet 8h 11 Jun, 2013 90 days Active Quetiapine Fumarate 50 mg Orally Once a day at hs 1 tablet 90 days Active Duloxetine HCl 60 mg Orally Once a day 2 capsule 24h 90 days Active Rosuvastatin Calcium 10 mg Orally Once a day 1 tablet 24h 90 days Active Potassium Chloride ER 20 meq Orally Once a day 1 tablet with food 24h Dec, 90 days Active Furosemide 40 mg Orally Once a day 1 tablet 24h 90 days Active Lexapro 20 mg Orally Once a day 1 tablet 24h 90 days Active RESULTS No Results PROCEDURES No [...]
--- OUTSIDE RECORDS SUMMARY | 2018-11-21 09:35 | XMS REPORT ---
Author Author NEERU CANO Organization [facility] Address [address] [place] [address] Care Team Providers Care Infection Control Rn Name Role Phone NEERU CANO Unavailable PROBLEMS Type Condition ICD9-CM Code APR70-NU Code Onset Dates Condition Status SNOMED Code Problem Dysthymia F34.1 Active 16090135 Problem Esophageal dysphagia R13.10 Active 61010198 Problem Gastroesophageal reflux disease, esophagitis presence not specified K21.9 Active 165416407 Problem Lumbar radiculopathy M54.16 Active 786546520 Problem Other chronic pain G89.29 Active 06914422 Problem Chronic obstructive pulmonary disease, unspecified COPD type J44.9 Active 21244328 Problem History of anemia Z86.2 Active 910069349 Problem Chronic pain due to trauma G89.21 Active 233069496 Problem Atrophic gastritis without hemorrhage K29.40 Active 81510205 Problem Acute allergic rhinitis, unspecified seasonality, unspecified trigger J30.9 Active 31133528 ALLERGIES No Information ENCOUNTERS Encounter Location Date Diagnosis [place] [id number] [place] [address] 42145- 8956 Apr, Acute strain of neck muscle, initial encounter S16.1XXA and Lumbar radiculopathy M54.16 [place] [id number] [place] [address] 24780- 1840 Apr, Atrophic gastritis without hemorrhage K29.40 and Chronic pain due to trauma G89.21 [place] [address] [address]- 4414 14 Mar, 2018 Chronic pain due to trauma G89.21 ; Lumbar radiculopathy M54.16 ; Dysthymia F34.1 ; Pain in right shoulder M25.511 ; Pain in left shoulder M25.512 ; Other chronic pain G89.29 and Chronic obstructive pulmonary disease, unspecified COPD type J44.9 [place] [id number] [place] [address] 12277- 8533 Mar, Chronic pain due to trauma G89.21 and Atrophic gastritis without hemorrhage K29.40 [place] [id number] [place] [address] 80965- 3055 February, Chronic pain due to trauma G89.21 and Atrophic gastritis without hemorrhage K29.40 [place] [address] 95362- 9605 Jan, Chronic pain due to trauma G89.21 and Atrophic gastritis without hemorrhage K29.40 [place] [address] [address]- 7996 Jan, Atrophic gastritis without hemorrhage K29.40 [place] [address] 39548- 4519 Dec, Atrophic gastritis without hemorrhage K29.40 and Chronic pain due to trauma G89.21 [place] [address] 11360- 7138 Dec, Chronic pain due to trauma G89.21 and Lumbar radiculopathy M54.16 [place] [id number] [place] [address] 37186- 8590 Dec, Lumbar radiculopathy M54.16 [place] [id number] [place] [address] 12776- 9183 Dec, [place] [address] 77586- 1739 Nov, Chronic pain due to trauma G89.21 [place] [address] 95446- 2628 Nov, BMI 40.0-44.9, adult Z68.41 ; Lumbar radiculopathy M54.16 and Dysthymia F34.1 [place] [address] [id number]- 2546 Nov, [facility] [address] [address] 7134 Nov, [facility] [id number] [place] [address] 994613- 8399 Oct, [facility] [id number] [place] [address] 03098- 6727 Oct, Chronic pain due to trauma G89.21 ; Gastroesophageal reflux disease, esophagitis presence not specified K21.9 ; Dysthymia F34.1 ; Lumbar radiculopathy M54.16 ; Esophageal dysphagia R13.10 and BMI 40.0-44.9, adult Z68.41 [facility] [id number] [place] [address] 09533 -7005 Sep, History of anemia Z86.2 and Acute allergic rhinitis, unspecified seasonality, unspecified trigger J30.9 [facility] [id number] [place] [address] 95282- 3498 Sep, [facility] [id number] [place] [address] 66100- 6775 14 Jul, 2016 [facility] [id number] [place] [address] 25510- 6388 14 Jan, 2015 [facility] [address] [place] [address] 27033- 3200 Jan, [facility] [id number] [place] [address] 69473- 9350 Nov, [facility] [id number] [place] [address] 71519- 9370 Nov, [facility] [id number] [place] [address] 72839- 3996 Oct, [facility] [id number] [place] [address] 43646- 3533 Aug, [facility] [address] [address] [place] [address]283 Aug, [facility] [place] [facility] [address] [id number] [place] [address]- 5664 Jul, [facility] [place] [facility] [address] [id number] [place] [address]- 6831 Jul, [facility] [place] [facility] [address] [id number] [place] [address]- 7216 Jul, [facility] [place] [facility] [address] [id number] [place] [address]- 2533 Jul, [facility] [place] [facility] [address] [id number] [place] [address]- 4136 Jul, [facility] [place] [facility] [address] [id number] [place] [address]- 0220 Jun, [facility] [place] [facility] [address] [id number] [place] [address]- 4395 Jun, [facility] [place] [facility] [address] [id number] [place] [address]- 7047 Jun, [facility] [place] [facility] [address] [id number] [place] [address]- 2528 May, [facility] [place] [facility] [address] [id number] [place] [address]- 7878 May, [facility] [place] [facility] [address] [id number] [place] [address]- 8930 May, [facility] [place] [facility] [address] [id number] [place] [address]- 1584 May, [facility] [place] [facility] [address] [id number] [place] [address]- 3254 Apr, [facility] [place] [facility] [address] [id number] [place] [address] 2549 Apr, [facility] [place] [facility] [address] [id number] [place] [address]- 6157 Apr, [facility] [place] [facility] [address] [id number] [place] [address]- 2540 Apr, [facility] [address] [id number] [place] [address]- 2546 Mar, [facility] [address] [id number] [place] [address]- 2546 Mar, [facility] [address] [id number] [place] [address]- 2546 Mar, [facility] [address] [id number] [place] [address]- 254 February, [facility] [address] [id number] [place] [address]- 7036 February, [facility] [address] [id number] [place] [address]- 4056 February, [facility] [address] [id number] [place] [address]- 8016 February, [facility] [address] [id number] [place] [address]- 0582 February, [facility] [address] [id number] [place] [address]- 1346 February, [facility] [address] [id number] [place] [address]- 0957 Jan, [facility] [address] [id number] [place] [address]- 2545 Jan, [facility] [address] [id number] [place] [address]- 2541 Dec, [facility] [place] [facility] [address] [id number] [place] [address]- 2546 Dec, [facility] [address] [id number] [place] [address]- 2546 Dec, [facility] [address] [id number] [place] [address]- 4552 05 Dec, 2012 [facility] [address] [id number] [place] [address]- 7056 04 Dec, 2012 [facility] [address] [id number] [place] [address]- 8886 21 Nov, 2012 [facility] [address] [id number] [place] [address]- 8656 13 Nov, 2012 [facility] [address] [id number] [place] [address]- 3146 12 Nov, 2012 [facility] [address] [id number] [place] [address]- 4666 07 Nov, 2012 [facility] [address] [id number] [place] [address]- 7966 Nov, [facility] [address] [id number] [place] [address]- 0487 Oct, [facility] [address] [id number] [place] [address]- 2840 Oct, [facility] [address] [id number] [place] [address]- 9343 Sep, [facility] [address] [id number] [place] [address]- 4162 Sep, [facility] [address] [id number] [place] [address]- 2776 Sep, [facility] [place] [facility] [address] [id number] [place] [address]- 2546 Sep, [facility] [place] [facility] [address] [id number] [place] [address]- 5836 Sep, [facility] [place] [facility] [address] [id number] [place] [address]16 Sep, [facility] [address] [id number] [place] [address]- 1374 05 Sep, 2012 [facility] [place] [facility] [address] [id number] [place] [address]- 6593 Sep, [facility] [place] [facility] [address] [id number] [place] [address]- 2497 Aug, [facility] [place] [facility] [address] [id number] [place] [address]- 6891 Aug, [facility] [place] [facility] [address] [id number] [place] [address]- 2420 Aug, [facility] [place] [facility] [address] [id number] [place] [address]- 1048 Aug, [facility] [place] [facility] [address] [id number] [place] [address]- 4196 Aug, [facility] [place] [facility] [address] [id number] [place] [address]- 6176 Aug, [facility] [place] [facility] [address] [id number] [place] [address]- 3906 Aug, [facility] [place] [facility] [address] [id number] [place] [address]- 1855 Jul, [facility] [place] [facility] [address] [id number] [place] [address]- 2368 Jul, [facility] [place] [facility] [address] [id number] [place] [address]- 8147 Jul, [facility] [place] [facility] [address] [id number] [place] [address]- 6352 Jul, [facility] [place] [facility] [address] [id number] [place] [address]- 7004 Jul, [facility] [place] [facility] [address] [id number] [place] [address]- 4505 Jul, [facility] [place] [facility] [address] [id number] [place] [address]- 9543 Jul, [facility] [place] [facility] [address] [id number] [place] [address]- 2208 Jun, [facility] [place] [facility] [address] [id number] [place] [address] 2548 Jun, [facility] [place] [facility] [address] [id number] [place] [address]- 2546 Jun, [facility] [place] [facility] [address] [id number] [place] [address] 2546 May, [facility] [place] [facility] [address] [id number] [place] [address]- 2546 May, [facility] [place] [facility] [address] [id number] [place] [address]- 2648 Apr, [facility] [place] [facility] [address] [id number] [place] [address]- 3716 Apr, [facility] [place] [facility] [address] [id number] [place] [address]- 4491 Mar, [facility] [place] [facility] [address] [id number] [place] [address]- 3956 February, [facility] [place] [facility] [address] [id number] [place] [address]- 7006 February, [facility] [place] [facility] [address] [id number] [place] [address]- 6176 February, [facility] [place] [facility] [address] [id number] [place] [address]- 4397 February, [facility] [place] [facility] [address] [id number] [place] [address]- 3168 February, [facility] [place] [facility] [address] [id number] [place] [address]- 1426 February, [facility] [place] [facility] [address] [id number] [place] [address]- 8766 February, [facility] [place] [facility] [address] [id number] [place] [address]- 0510 Jan, [facility] [place] [facility] [address] [id number] [place] [address]- 4847 30 Dec, 2011 [facility] [place] [address] [id number] [place] [address]- 1614 28 Dec, 2011 [facility] [address] [id number] [place] [address]- 0076 29 Oct, 2011 [facility] [address] [id number] [place] [address]- 9601 Oct, [facility] [address] [id number] [place] [address]- 4781 Oct, [facility] [address] [id number] [place] [address]- 9635 Oct, [facility] [address] [id number] [place] [address]- 7948 Oct, [facility] [address] [id number] [place] [address]- 5530 Oct, [facility] [address] [id number] [place] [address]- 9539 Oct, [facility] [address] [id number] [place] [address]- 9836 Oct, [facility] [address] [id number] [place] [address]- 9552 Oct, [facility] [address] [id number] [place] [address]- 2584 Sep, [facility] [address] [id number] [place] [address]- 4268 Sep, [facility] [address] [id number] [place] [address]- 2297 Sep, [facility] [address] [id number] [place] [address]- 7845 Sep, [facility] [address] [id number] [place] [address]- 9920 Sep, [facility] [address] [id number], [place] [address]- 8326 Sep, [facility] [address] [facility] [id number], [place] [address]- 9322 Sep, [facility] [address] [facility] [id number], [place] [address]- 2253 Sep, [facility] [address] [facility] [id number], [place] [address]- 2216 Sep, [facility] [address] [id number], [place] [address]- 6744 05 Sep, 2011 [facility] [address] [facility] [id number], [place] [address]- 3193 15 Aug, 2011 [facility] [address] [facility] [id number], [place] [address]- 2033 18 Jul, 2011 [facility] [address] [facility] [id number], [place] [address]- 5841 Sep, [facility] [address] [facility] [id number], [place] [address]- 4923 15 Aug, 2010 [facility] [address] [facility] [id number], [place] [address]- 3569 Aug, [facility] [address] [facility] [id number], [place] [address]- 5604 Aug, [facility] [address] [facility] [id number], [place] [address]- 7465 Aug, [facility] [address] [facility] [id number], [place] [address]- 5183 Jul, [facility] [address] [facility] [id number], [place] [address]- 0296 Jul, [facility] [address] [facility] [id number], [place] [address]- 2645 Jul, IMMUNIZATIONS No Known Immunizations SOCIAL HISTORY Never Assessed REASON FOR VISIT Denied Refill request PLAN OF CARE VITAL SIGNS MEDICATIONS No Known Medications RESULTS No Results PROCEDURES No Known [...]
--- OUTSIDE RECORDS SUMMARY | 2018-11-21 09:36 | XMS REPORT ---
Author Author NEERU CANO [facility] Address [address] [place] [address] Care Team Providers Care Public Health Sanitarian Technician Name Role Phone NEERU CANO Unavailable PROBLEMS Type Condition ICD9-CM Code LXS69-QK Code Onset Dates Condition Status SNOMED Code Problem Dysthymia F34.1 Active 21690372 Problem Esophageal dysphagia R13.10 Active 89912574 Problem Gastroesophageal reflux disease, esophagitis presence not specified K21.9 Active 001510573 Problem Lumbar radiculopathy M54.16 Active 976301025 Problem Other chronic pain G89.29 Active 09107760 Problem Chronic obstructive pulmonary disease, unspecified COPD type J44.9 Active 90075127 Problem History of anemia Z86.2 Active 852144182 Problem Chronic pain due to trauma G89.21 Active 908593559 Problem Atrophic gastritis without hemorrhage K29.40 Active 85488402 Problem Acute allergic rhinitis, unspecified seasonality, unspecified trigger J30.9 Active 14176816 ALLERGIES No Information ENCOUNTERS Encounter Location Date Diagnosis [facility] [id number] [place] [address] 71336- 3711 Mar, Chronic pain due to trauma G89.21 ; Lumbar radiculopathy M54.16 ; Dysthymia F34.1 ; Pain in right shoulder M25.511 ; Pain in left shoulder M25.512 ; Other chronic pain G89.29 and Chronic obstructive pulmonary disease, unspecified COPD type J44.9 [facility] [id number] [place] [address] 73183- 8842 14 Mar, 2018 Chronic pain due to trauma G89.21 and Atrophic gastritis without hemorrhage K29.40 [facility] [id number] [place] [address] 99105- 4829 February, Chronic pain due to trauma G89.21 and Atrophic gastritis without hemorrhage K29.40 [facility] [id number] [place] [address] 29733- 1259 17 Jan, 2018 Chronic pain due to trauma G89.21 and Atrophic gastritis without hemorrhage K29.40 [facility] [id number] [place] [address] 06985- 4206 02 Jan, 2018 Atrophic gastritis without hemorrhage K29.40 [facility] [address] 41745- 0916 Dec, Atrophic gastritis without hemorrhage K29.40 and Chronic pain due to trauma G89.21 [facility] [id number] [place] [address] 95572- 1773 Dec, Chronic pain due to trauma G89.21 and Lumbar radiculopathy M54.16 [facility] [address] 05555- 5869 Dec, Lumbar radiculopathy M54.16 [place] [address] 60926- 1230 Dec, [facility] [address] 87962- 4761 Nov, Chronic pain due to trauma G89.21 [facility] [id number] [place] [address] 83198- 3682 Nov, BMI 40.0-44.9, adult Z68.41 ; Lumbar radiculopathy M54.16 and Dysthymia F34.1 [facility] [id number] [place] [address] 29644- 8472 Nov, [facility] [address] 54945- 2778 Nov, [facility] [id number] [place] [address] 43282- 4149 Oct, [facility] [address] 98594- 8949 Oct, Chronic pain due to trauma G89.21 ; Gastroesophageal reflux disease, esophagitis presence not specified K21.9 ; Dysthymia F34.1 ; Lumbar radiculopathy M54.16 ; Esophageal dysphagia R13.10 and BMI 40.0-44.9, adult Z68.41 [facility] [id number] [place] [address] 62314 -2973 Sep, History of anemia Z86.2 and Acute allergic rhinitis, unspecified seasonality, unspecified trigger J30.9 [facility] [id number] [place] [address] 34539- 0139 Sep, [facility] [address] 57851- 1002 14 Jul, 2016 [facility] [address] 74252- 6833 Jan, [facility] [address] 50829- 7743 Jan, [facility] [id number] [place] [address] 62815- 1219 Nov, [facility] [id number] [place] [address] 24856- 1589 Nov, [facility] [id number] [place] [address] 54982- 9903 Oct, [facility] [id number] [place] [address] 01547- 7553 Aug, [facility] [id number] [place] [address] 96928- 3271 Aug, [facility] [address] 125543- 0586 Jul, [facility] [id number] [place] [address] 16627- 4645 Jul, [facility] [address] 83476- 0866 Jul, [facility] [place] [facility] [address] [id number] [place] [address]- 3387 Jul, [facility] [place] [facility] [address] [id number] [place] [address]- 8537 Jul, [facility] [place] [facility] [address] [id number] [place] [address]- 1119 Jun, [facility] [place] [facility] [address] [id number] [place] [address]- 4012 16 Jun, 2013 [facility] [place] [facility] [address] [id number] [place] [address]- 1882 Jun, [facility] [place] [facility] [address] [id number] [place] [address]- 1912 May, [facility] [place] [facility] [address] [id number] [place] [address]- 4048 May, [facility] [place] [facility] [address] [id number] [place] [address]- 8616 May, [facility] [place] [facility] [address] [id number] [place] [address]- 4248 May, [facility] [place] [facility] [address] [id number] [place] [address]- 5131 Apr, [facility] [place] [facility] [address] [id number] [place] [address]- 6693 Apr, [facility] [place] [facility] [address] [id number] [place] [address]- 7909 Apr, [facility] [place] [facility] [address] [id number] [place] [address]- 8485 Apr, [facility] [place] [facility] [address] [id number] [place] [address]- 6458 Mar, [facility] [place] [facility] [address] [id number] [place] [address]- 4324 Mar, [facility] [place] [facility] [address] [id number] [place] [address]- 2546 Mar, [facility] [address] [id number] [place] [address]- 4296 February, [facility] [address] [id number] [place] [address]- 2546 February, [facility] [address] [id number] [place] [address]- 0366 February, [facility] [address] [id number] [place] [address]- 2546 February, [facility] [address] [id number] [place] [address]- 9416 February, [facility] [address] [id number] [place] [address]- 2546 February, [facility] [address] [id number] [place] [address]- 5793 Jan, [facility] [address] [id number] [place] [address]- 9884 Jan, [facility] [address] [id number] [place] [address]- 1889 Dec, [facility] [address] [id number] [place] [address]- 9326 Dec, [facility] [address] [id number] [place] [address]- 2546 Dec, [facility] [address] [id number] [place] [address]- 2546 Dec, [facility] [address] [id number] [place] [address]- 9306 Dec, [facility] [address] [id number] [place] [address]- 2546 Nov, [facility] [address] [id number] [place] [address]- 5248 Nov, [facility] [address] [id number] [place] [address]- 4241 12 Nov, 2012 [facility] [place] [facility] [address] [id number] [place] [address]- 1121 07 Nov, 2012 [facility] [place] [facility] [address] [id number] [place] [address]- 9935 Nov, [facility] [place] [facility] [address] [id number] [place] [address]- 3769 Oct, [facility] [place] [facility] [address] [id number] [place] [address]- 5357 Oct, [facility] [place] [facility] [address] [id number] [place] [address]- 1636 Sep, [facility] [place] [facility] [address] [id number] [place] [address]- 2058 Sep, [facility] [place] [facility] [address] [id number] [place] [address]- 1730 Sep, [facility] [place] [facility] [address] [id number] [place] [address]- 4387 Sep, [facility] [place] [facility] [address] [id number] [place] [address]- 9731 Sep, [facility] [place] [facility] [address] [id number] [place] [address]- 8360 Sep, [facility] [place] [facility] [address] [id number] [place] [address]- 5767 Sep, [facility] [place] [facility] [address] [id number] [place] [address]- 5209 Sep, [facility] [place] [facility] [address] [id number] [place] [address]- 6533 Aug, [facility] [place] [facility] [address] [id number] [place] [address]- 1446 Aug, [facility] [place] [facility] [address] [id number] [place] [address]- 1677 15 Aug, 2012 [facility] [place] [facility] [address] [id number] [place] [address]- 8042 Aug, [facility] [place] [facility] [address] [id number] [place] [address]- 1074 Aug, [facility] [place] [facility] [address] [id number] [place] [address]- 1571 Aug, [facility] [place] [facility] [address] [id number] [place] [address]- 0641 Aug, [facility] [place] [facility] [address] [id number] [place] [address]45 Jul, [facility] [place] [facility] [address] [id number] [place] [address]- 8681 Jul, [facility] [place] [facility] [address] [facility] [id number] [place] [address]- 7381 Jul, [facility] [place] [facility] [address] [id number] [place] [address]- 9324 Jul, [facility] [place] [facility] [address] [facility] [id number] [place] [address]- 0212 Jul, [facility] [place] [facility] [address] [facility] [id number] [place] [address]- 1818 Jul, [facility] [place] [facility] [address] [id number] [place] [address]- 3422 Jul, [facility] [place] [facility] [address] [id number] [address]- 5735 18 Jun, 2012 [facility] [place] [facility] [address] [id number] [place] [address]- 8532 06 Jun, 2012 [facility] [place] [facility] [address] [facility] [id number] [place] [address]- 2862 05 Jun, 2012 [facility] [place] [facility] [address] [id number] [place] [address]885 May, [facility] [place] [facility] [address] [id number] [place] [address] 2541 May, [facility] [address] [id number] [place] [address] 2546 Apr, [facility] [address] [id number] [place] [address]- 2546 Apr, [facility] [address] [id number] [place] [address]- 4463 Mar, [facility] [address] [id number] [place] [address]- 6459 February, [facility] [address] [id number] [place] [address]- 5576 February, [facility] [address] [id number] [place] [address]- 9806 February, [facility] [address] [id number] [place] [address]- 5169 February, [facility] [address] [id number] [place] [address]- 5678 February, [facility] [address] [id number] [place] [address]- 1556 February, [facility] [address] [id number] [place] [address]- 2546 February, [facility] [address] [id number] [place] [address]- 6126 Jan, [facility] [place] [facility] [address] [id number] [place] [address]- 1438 Dec, [facility] [place] [facility] [address] [id number] [place] [address]- 5826 Dec, [facility] [place] [facility] [address] [id number] [place] [address]- 0116 Oct, [facility] [place] [facility] [address] [id number] [place] [address]- 2992 Oct, [facility] [address] [id number] [place] [address]- 4433 Oct, [facility] [place] [facility] [address] [id number] [place] [address]- 7926 Oct, [facility] [place] [facility] [address] [id number] [place] [address]- 3792 Oct, [facility] [place] [facility] [address] [id number] [place] [address]- 5265 Oct, [facility] [address] [id number] [place] [address]- 3032 Oct, [facility] [address] [id number] [place] [address]- 8741 Oct, [facility] [address] [id number] [place] [address]- 8655 Oct, [facility] [address] [id number] [place] [address]- 8458 Sep, [facility] [address] [id number] [place] [address]- 3010 Sep, [facility] [place] [facility] [address] [id number] [place] [address]- 7289 Sep, [facility] [address] [id number] [place] [address]- 9199 Sep, [facility] [place] [facility] [address] [id number] [place] [address]- 3767 Sep, [facility] [place] [facility] [address] [id number] [place] [address]- 5511 Sep, [facility] [place] [facility] [address] [id number] [place] [address]- 7802 Sep, [facility] [place] [facility] [address] [id number] [place] [address]- 9241 Sep, [facility] [place] [facility] [address] [address]- 8700 13 Sep, 2011 [facility] [address] [address]- 3348 Sep, [facility] [address] [address]- 2588 15 Aug, 2011 [facility] [address] [address]- 0103 Jul, [facility] [address] [address]- 1572 Sep, [facility] [id number] [place] [address] 249390- 8407 Aug, [facility] [id number] [place] [address] 80625- 4531 Aug, [facility] [id number] [place] [address] 61969- 7098 Aug, [facility] [address] [place] [address]- 8541 Aug, [facility] [address] [place] [address]- 7698 Jul, [facility] [address] [address]- 1401 Jul, [facility] [address] [place] [address]- 2538 Jul, IMMUNIZATIONS No Known Immunizations SOCIAL HISTORY Never Assessed REASON FOR VISIT MsContin and Oxycodone 12/14 PLAN OF CARE VITAL SIGNS MEDICATIONS Medication Instructions Dosage Frequency Start Date End Date Duration Status Morphine Sulfate 30 MG Orally 2 times a day 1 tablet 12h Nov, 28 days Active Oxycodone-Acetaminophen 10-325 MG Orally 3 times a day 1 tablet as needed 8h Nov, 28 days Active RESULTS No Results PROCEDURES [...]
--- OUTSIDE RECORDS SUMMARY | 2018-11-21 09:36 | XMS REPORT ---
Author Author JOSEPH QUEEN [facility] Address [address] [place] [address] Care Team Providers Care Human Relations Manager Name Role Phone JOSEPH QUEEN Unavailable PROBLEMS Type Condition ICD9-CM Code VRI76-JL Code Onset Dates Condition Status SNOMED Code Problem Lumbar radiculopathy M54.16 Active 772096457 Problem Gastroesophageal reflux disease, esophagitis presence not specified K21.9 Active 658944273 Problem Atrophic gastritis without hemorrhage K29.40 Active 41574957 Problem Acute allergic rhinitis, unspecified seasonality, unspecified trigger J30.9 Active 68215256 Problem Chronic pain due to trauma G89.21 Active 764892916 Problem Dysthymia F34.1 Active 56057339 Problem History of anemia Z86.2 Active 423087083 Problem Esophageal dysphagia R13.10 Active 41818189 ALLERGIES No Known Allergies ENCOUNTERS Encounter Location Date Diagnosis [place] [address] [address] Mar, [place] [address] [address] February, Chronic pain due to trauma G89.21 and Atrophic gastritis without hemorrhage K29.40 [place] [address] [address] Jan, Chronic pain due to trauma G89.21 and Atrophic gastritis without hemorrhage K29.40 [place] [address] [address] Jan, Atrophic gastritis without hemorrhage K29.40 [place] [address] [address] Dec, Atrophic gastritis without hemorrhage K29.40 and Chronic pain due to trauma G89.21 [place] [address] [place] [id number] [place] [address] Dec, Chronic pain due to trauma G89.21 and Lumbar radiculopathy M54.16 [place] [address] [address] Dec, Lumbar radiculopathy M54.16 [place] [address] [address] Dec, [place] [address] [address] Nov, Chronic pain due to trauma G89.21 [place] [address] [address] Nov, BMI 40.0-44.9, adult Z68.41 ; Lumbar radiculopathy M54.16 and Dysthymia F34.1 [place] [address] [address] Nov, [place] [address] [address] Nov, [place] [address] [address] Oct, [place] [address] [address] Oct, Chronic pain due to trauma G89.21 ; Gastroesophageal reflux disease, esophagitis presence not specified K21.9 ; Dysthymia F34.1 ; Lumbar radiculopathy M54.16 ; Esophageal dysphagia R13.10 and BMI 40.0-44.9, adult Z68.41 [facility] [address] [address] 05 Sep, 2017 History of anemia Z86.2 and Acute allergic rhinitis, unspecified seasonality, unspecified trigger J30.9 [place] [address] [place] [address] 05 Sep, 2017 [facility] [address] [id number] [place] [address] 14 Jul, 2016 [facility] [place] [facility] [address] [id number] [place] [address] 14 Jan, 2015 [facility] [place] [facility] [address] [id number] [place] [address] Jan, [facility] [place] [facility] [address] [id number] [place] [address] 2013 [facility] [place] [facility] [address] [id number] [place] [address] Nov, [facility] [place] [facility] [address] [id number] [place] [address]- [address] Oct, [facility] [place] [facility] [address] [id number] [place] [address] Aug, [facility] [place] [facility] [address] [id number] [place] [address] Aug, [facility] [place] [facility] [address] [id number] [place] [address] 17[address] Jul, [facility] [place] [facility] [address] [id number] [place] [address]- 8365 Jul, [facility] [place] [facility] [address] [id number] [place] [address]- [address] Jul, [facility] [place] [facility] [address] [id number] [place] [address]- [address] Jul, [facility] [place] [facility] [address] [id number] [place] [address]- [address] Jul, [facility] [place] [facility] [address] [id number] [place] [address]- 33[address] 24 Jun, 2013 [facility] [place] [facility] [address] [id number] [address] 16 Jun, 2013 [facility] [place] [facility] [address] [id number] [place] [address] Jun, [facility] [place] [facility] [address] [id number] [place] [address] May, [facility] [place] [facility] [address] [id number] [place] [address] May, [facility] [place] [facility] [address] [id number] [place] [address]- [address] May, [facility] [place] [facility] [address] [id number] [place] [address]- [address] May, [facility] [place] [facility] [address] [id number] [place] [address]- 94[address] Apr, [facility] [place] [facility] [address] [id number] [place] [address]- 3536 Apr, [facility] [place] [facility] [address] [id number] [place] [address]- [address] Apr, [facility] [place] [facility] [address] [id number] [place] [address]- 3767 Apr, [facility] [place] [facility] [address] [id number] [place] [address] Mar, [facility] [place] [facility] [address] [id number] [place] [address]- [address] Mar, [facility] [place] [facility] [address] [id number] [place] [address]- 4[address] Mar, [facility] [place] [facility] [address] [id number] [place] [address]- 24[address] February, [facility] [place] [facility] [address] [id number] [place] [address]- [address] February, [facility] [place] [facility] [address] [id number] [place] [address]- 98[address] February, [facility] [place] [facility] [address] [id number], [place] [address]- [address] February, [facility] [address] [id number] [place] [address]- 2714 February, [facility] [address] [id number] [place] [address]- [address] February, [facility] [address] [facility] [id number] [place] [address]- 27[address] Jan, [facility] [place] [facility] [address] [id number], [place] [address]- 77[address] Jan, [facility] [address] [id number] [place] [address]- 65[address] Dec, [facility] [address] [facility] [id number] [place] [address]- [address] Dec, [facility] [address] [facility] [id number], [place] [address]- [address] Dec, [facility] [address] [id number], [place] [address]- [address] Dec, [facility] [address] [id number], [place] [address]- [address] Dec, [facility] [address] [facility] [id number], [place] [address]- [address] Nov, [facility] [address] [id number], [place] [address]- 6[address] Nov, [facility] [place] [facility] [address] [id number], [place] [address]- 92[address] Nov, [facility] [place] [facility] [address] [id number] [place] [address]- 2347 07 Nov, 2012 [facility] [place] [facility] [address] [id number], [place] [address]- [address] 04 Nov, 2012 [facility] [place] [facility] [address] [facility] [id number], [place] [address]- [address] Oct, [facility] [place] [facility] [address] [id number] [place] [address]- 8748 Oct, [facility] [place] [facility] [address] [id number] [place] [address]- 3316 Sep, [facility] [place] [facility] [address] [id number] [place] [address]- 4[address] Sep, [facility] [place] [facility] [address] [id number] [place] [address]- 0346 Sep, [facility] [place] [facility] [address] [id number] [place] [address]- 6420 Sep, [facility] [place] [facility] [address] [id number] [place] [address]- 6646 Sep, [facility] [place] [facility] [address] [id number] [place] [address]- 0040 Sep, [facility] [place] [facility] [address] [id number] [place] [address]- 4740 Sep, [facility] [place] [facility] [address] [id number] [place] [address]- 8100 Sep, [facility] [place] [facility] [address] [id number] [place] [address]- 2667 Aug, [facility] [place] [facility] [address] [id number] [place] [address]- 3054 Aug, [facility] [place] [facility] [address] [id number] [place] [address]- 2588 Aug, [facility] [place] [facility] [address] [id number] [place] [address]- 2235 Aug, [facility] [place] [facility] [address] [id number] [place] [address]- 0336 Aug, [facility] [place] [facility] [address] [id number] [place] [address]- 2556 Aug, [facility] [place] [facility] [address] [id number] [place] [address]- 0191 Aug, [facility] [place] [facility] [address] [id number] [place] [address]- 5366 Jul, [facility] [place] [facility] [address] [id number] [place] [address]- 1078 Jul, [facility] [place] [facility] [address] [id number] [place] [address]- 3895 Jul, [facility] [place] [facility] [address] [id number] [place] [address]- 8778 Jul, [facility] [place] [facility] [address] [id number] [place] [address]- 9931 Jul, [facility] [place] [facility] [address] [id number] [place] [address]- 1930 Jul, [facility] [place] [facility] [address] [facility] [facility] [id number] [place] [address]- 7844 Jul, [facility] [place] [facility] [address] [id number] [place] [address]- 5363 Jun, [facility] [place] [facility] [address] [id number] [place] [address]- 1235 Jun, [facility] [place] [facility] [address] [facility] [id number] [place] [address]- 1637 05 Jun, 2012 [facility] [place] [facility] [address] [id number], [place] [address]- 2142 May, [facility] [place] [facility] [address] [id number], [place] [address]- 4252 May, [facility] [place] [facility] [address] [id number] [place] [address]- 3733 Apr, [facility] [place] [facility] [address] [facility] [id number], [place] [address]- 5958 Apr, [facility] [place] [facility] [address] [facility] [id number] [place] [address]- 5169 Mar, [facility] [place] [facility] [address] [id number] [place] [address]- 1738 February, [facility] [address] [id number] [place] [address]- 5156 February, [facility] [place] [facility] [address] [id number] [place] [address]- 8606 February, [facility] [address] [id number] [place] [address]- 9806 February, [facility] [place] [facility] [address] [id number] [place] [address]- 9326 February, [facility] [address] [id number] [place] [address]- 3656 February, [facility] [address] [id number] [place] [address]- 4226 February, [facility] [address] [id number] [place] [address]- 9232 Jan, [facility] [address] [id number] [place] [address]- 0829 Dec, [facility] [place] [facility] [address] [id number] [place] [address]- 7892 Dec, [facility] [address] [id number] [place] [address]- 3956 Oct, [facility] [place] [facility] [address] [id number] [place] [address]- 7585 Oct, [facility] [place] [facility] [address] [id number] [place] [address]- 4871 Oct, [facility] [place] [facility] [address] [id number] [place] [address]- 9046 Oct, [facility] [place] [facility] [address] [id number] [place] [address]- 6906 Oct, [facility] [place] [facility] [address] [id number] [place] [address]- 6806 Oct, [facility] [place] [facility] [address] [id number] [place] [address]- 4199 Oct, [facility] [address] [id number] [place] [address]- 3536 Oct, [facility] [address] [id number] [place] [address]- 1359 Oct, [facility] [address] [id number] [place] [address]- 5575 Sep, [facility] [address] [id number] [place] [address]- 2193 Sep, [facility] [address] [id number] [place] [address]- 9747 Sep, [facility] [address] [id number] [place] [address]- 6157 Sep, [facility] [address] [id number] [place] [address]- 9639 Sep, [facility] [address] [id number] [place] [address]- 3407 Sep, [facility] [address] [id number] [place] [address]- 4369 Sep, [facility] [address] [id number] [place] [address]- 0525 Sep, [facility] [address] [id number] [place] [address]- 8540 Sep, [facility] [address] [id number] [place] [address]- 5315 05 Sep, 2011 [facility] [place] [facility] [address] [id number] [place] [address]- 3754 15 Aug, 2011 [facility] [place] [facility] [address] [id number] [place] [address]- 8893 18 Jul, 2011 [facility] [address] [id number] [address] Sep, [facility] [address] [place] [id number], [place] [address]- 1773 Aug, [facility] [address] [id number] [address] Aug, [facility] [address] [address]- [address] Aug, [facility] [address] [address] Aug, [facility] [address]65[place], [place] [address]- 9227 Jul, [facility] [address]65[place], [place] [address]- 0801 Jul, [facility] [address] [place] [id number], [place] [address]- [address] Jul, IMMUNIZATIONS No Known Immunizations SOCIAL HISTORY Never Assessed REASON FOR VISIT fatigue/losing voice- pt. states it has been going on for about 12 days and it' s off and on [facility] ANNY PLAN OF CARE Activity Details Follow Up 4 Weeks Reason: VITAL SIGNS Height 60 in 2017-09-26 Weight 203.8 lbs 2017-09-26 Temperature 98.1 degrees Fahrenheit 2017-09-26 Heart Rate 72 bpm 2017-09-26 Respiratory Rate 20 2017-09-26 BMI 39.80 kg/m2 2017-09-26 Blood pressure systolic 116 mmHg 2017-09-26 Blood pressure diastolic 78 mmHg 2017-09-26 MEDICATIONS Medication Instructions Dosage Frequency Start Date End Date Duration Status Gabapentin 800 MG take 1 tablet (600 mg) by oral route 3 times per day Jun, Active Mobic 15 mg 1 Tablet by Oral route 1 time per day Jul, Not-Taking Advair Diskus 250-50 mcg/dose 1 puffs by Inhalation route 2 times per day Aug, Not-Taking Hydrocodone-Acetaminophen 10-325 MG Orally every 12 hours 1 tablet as needed 12h Apr, Active Effexor 75 mg 1 tablet by Oral route 2 times per day Jun, Not-Taking Zoloft 50 mg 1 tablet by Oral route 1 time per day Jul, Not-Taking morphine 60 mg 1 tablet Jun, Not-Taking Robaxin 500 mg 1 tablet by Oral route 3 times per day Apr, Not-Taking Seroquel 100 mg 1 Tablet by Oral route 1 time per day Aug, Not-Taking quinapril 10 mg 0.5 tablet by Oral route 1 time per day Dec, Not-Taking Sucralfate 1 gram 1 Tablet 4 times per day Before meals and before bed Dec, Active Cetirizine HCl 10 MG Orally Once a day 1 tablet 24h Sep, Jan, 30 day(s) Active FentaNYL HCl 25 MCG/ACT Active Furosemide 40 mg 1 tablet by Oral route 1 time per day May, Active Aricept 10 mg 1 tablet by Oral route 1 time per day Jul, Not-Taking Omeprazole Magnesium 20 mg 1 capsule by Oral route 1 time per day Oct, Active Estradiol 1 mg 1 tablet by Oral route 1 time per day Jul, Unknown RESULTS Name Result Date Reference Range HEMOGLOBIN (IN HOUSE) 2017-09-26 HEMOGLOBIN 13.1 11.5 - 16 gm/dL Lot # [id number] Exp date 09/11/2018 PROCEDURES Procedure Date Ordered Result Body Site HEMOGLOBIN Sep 26, 2017 [facility] VISIT ESTABLISHED PATIENT Sep 26, 2017 INSTRUCTIONS MEDICATIONS ADMINISTERED No Known Medications MEDICAL [...]
--- OUTSIDE RECORDS SUMMARY | 2018-11-21 09:36 | XMS REPORT ---
Author Author NEERU CANO [facility] Address [address] [place] [address] Care Team Providers Care Roustabout Head Name Role Phone NEERU CANO Unavailable PROBLEMS Type Condition ICD9-CM Code BUY74-GY Code Onset Dates Condition Status SNOMED Code Problem Dysthymia F34.1 Active 74561158 Problem Esophageal dysphagia R13.10 Active 35367514 Problem Gastroesophageal reflux disease, esophagitis presence not specified K21.9 Active 130961279 Problem Lumbar radiculopathy M54.16 Active 025855034 Problem Other chronic pain G89.29 Active 47369666 Problem Chronic obstructive pulmonary disease, unspecified COPD type J44.9 Active 26871825 Problem History of anemia Z86.2 Active 336041664 Problem Chronic pain due to trauma G89.21 Active 962496480 Problem Atrophic gastritis without hemorrhage K29.40 Active 10775908 Problem Acute allergic rhinitis, unspecified seasonality, unspecified trigger J30.9 Active 76723769 ALLERGIES No Information ENCOUNTERS Encounter Location Date Diagnosis [facility] [id number] [place] [address] 41228- 1708 Mar, Chronic pain due to trauma G89.21 ; Lumbar radiculopathy M54.16 ; Dysthymia F34.1 ; Pain in right shoulder M25.511 ; Pain in left shoulder M25.512 ; Other chronic pain G89.29 and Chronic obstructive pulmonary disease, unspecified COPD type J44.9 [facility] [id number] [place] [address] 71166- 2110 14 Mar, 2018 Chronic pain due to trauma G89.21 and Atrophic gastritis without hemorrhage K29.40 [facility] [id number] [place] [address] 24662- 6648 February, Chronic pain due to trauma G89.21 and Atrophic gastritis without hemorrhage K29.40 [facility] [id number] [place] [address] 83673- 6832 17 Jan, 2018 Chronic pain due to trauma G89.21 and Atrophic gastritis without hemorrhage K29.40 [facility] [id number] [place] [address] 05980- 1866 02 Jan, 2018 Atrophic gastritis without hemorrhage K29.40 [facility] [address] 08651- 2541 Dec, Atrophic gastritis without hemorrhage K29.40 and Chronic pain due to trauma G89.21 [facility] [id number] [place] [address] 69425- 1145 Dec, Chronic pain due to trauma G89.21 and Lumbar radiculopathy M54.16 [place] [address] 96520- 9391 Dec, Lumbar radiculopathy M54.16 [place] [address] 76508- 9369 Dec, [facility] [address] 16018- 9760 Nov, Chronic pain due to trauma G89.21 [place] [id number] [place] [address] 65585- 5204 Nov, BMI 40.0-44.9, adult Z68.41 ; Lumbar radiculopathy M54.16 and Dysthymia F34.1 [place] [id number] [place] [address] 62329- 3209 Nov, [place] [address] 07929- 6536 Nov, [facility] [id number] [place] [address] 45757- 6722 Oct, [facility] [address] 10598- 2898 Oct, Chronic pain due to trauma G89.21 ; Gastroesophageal reflux disease, esophagitis presence not specified K21.9 ; Dysthymia F34.1 ; Lumbar radiculopathy M54.16 ; Esophageal dysphagia R13.10 and BMI 40.0-44.9, adult Z68.[address] [facility] [id number] [place] [address] 33181 -8126 Sep, History of anemia Z86.2 and Acute allergic rhinitis, unspecified seasonality, unspecified trigger J30.9 [facility] [id number] [place] [address] 80479- 1502 Sep, [facility] [address] 77466- 1610 14 Jul, 2016 [facility] [address] 90443- 9521 Jan, [facility] [address] 92970- 0539 Jan, [facility] [id number] [place] [address] 76012- 7291 Nov, [facility] [id number] [place] [address] 32869- 4920 Nov, [facility] [id number] [place] [address] 98842- 8386 Oct, [facility] [id number] [place] [address] 22922- 9684 Aug, [facility] [id number] [place] [address] 36547- 1239 Aug, [facility] [address] 634846- 6065 Jul, [facility] [id number] [place] [address] 81421- 9731 Jul, [facility] [address] 27925- 3356 Jul, [facility] [place] [facility] [address] [id number] [place] [address] 1948 Jul, [facility] [place] [facility] [address] [id number] [place] [address]- 9667 Jul, [facility] [place] [facility] [address] [id number] [place] [address]- 2291 Jun, [facility] [place] [facility] [address] [id number] [place] [address]- 3453 16 Jun, 2013 [facility] [place] [facility] [address] [id number] [place] [address]- 7868 Jun, [facility] [place] [facility] [address] [id number] [place] [address]- 5579 May, [facility] [place] [facility] [address] [id number] [place] [address]- 4112 May, [facility] [place] [facility] [address] [id number] [place] [address]- 5401 May, [facility] [place] [facility] [address] [id number] [place] [address]- 8398 May, [facility] [place] [facility] [address] [id number] [place] [address]- 7900 Apr, [facility] [place] [facility] [address] [id number] [place] [address]- 2208 Apr, [facility] [place] [facility] [address] [id number] [place] [address]- 8430 Apr, [facility] [place] [facility] [address] [id number] [place] [address]- 3364 Apr, [facility] [place] [facility] [address] [id number] [place] [address]- 1788 Mar, [facility] [place] [facility] [address] [id number] [place] [address]- 3468 Mar, [facility] [place] [facility] [address] [id number] [place] [address]- 2546 Mar, [facility] [address] [id number] [place] [address]- 0976 February, [facility] [address] [id number] [place] [address]- 2546 February, [facility] [address] [id number] [place] [address]- 9116 February, [facility] [address] [id number] [place] [address]- 2546 February, [facility] [address] [id number] [place] [address]- 0526 February, [facility] [address] [id number] [place] [address]- 2546 February, [facility] [address] [id number] [place] [address]- 8400 Jan, [facility] [address] [id number] [place] [address]- 5062 Jan, [facility] [address] [id number] [place] [address]- 0567 Dec, [facility] [address] [id number] [place] [address]- 1963 Dec, [facility] [address] [id number] [place] [address]- 2546 Dec, [facility] [address] [id number] [place] [address]- 2546 Dec, [facility] [address] [id number] [place] [address]- 4176 Dec, [facility] [address] [id number] [place] [address]- 2546 Nov, [facility] [address] [id number] [place] [address]- 0616 Nov, [facility] [address] [id number] [place] [address]- 4109 12 Nov, 2012 [facility] [place] [facility] [address] [id number] [place] [address]- 4227 07 Nov, 2012 [facility] [place] [facility] [address] [id number] [place] [address]- 5540 Nov, [facility] [place] [facility] [address] [id number] [place] [address]- 2345 Oct, [facility] [place] [facility] [address] [id number] [place] [address]- 6709 Oct, [facility] [place] [facility] [address] [id number] [place] [address]- 5576 Sep, [facility] [place] [facility] [address] [id number] [place] [address]- 3143 Sep, [facility] [place] [facility] [address] [id number] [place] [address]- 3040 Sep, [facility] [place] [facility] [address] [id number] [place] [address]- 8388 Sep, [facility] [place] [facility] [address] [id number] [place] [address]- 6437 Sep, [facility] [place] [facility] [address] [id number] [place] [address]- 1645 Sep, [facility] [place] [facility] [address] [id number] [place] [address]- 9146 Sep, [facility] [place] [facility] [address] [id number] [place] [address]- 6693 Sep, [facility] [place] [facility] [address] [id number] [place] [address]- 3238 Aug, [facility] [place] [facility] [address] [id number] [place] [address]- 1773 Aug, [facility] [place] [facility] [address] [id number] [place] [address]- 3680 15 Aug, 2012 [facility] [place] [facility] [address] [id number] [place] [address]- 3639 Aug, [facility] [place] [facility] [address] [id number] [place] [address]- 9039 Aug, [facility] [place] [facility] [address] [id number] [place] [address]- 0444 Aug, [facility] [place] [facility] [address] [id number] [place] [address]- 5240 Aug, [facility] [place] [facility] [address] [id number] [place] [address]160 Jul, [facility] [place] [facility] [address] [id number] [place] [address]- 9152 Jul, [facility] [place] [facility] [address] [facility] [id number] [place] [address]- 2933 Jul, [facility] [place] [facility] [address] [id number] [place] [address]- 0145 Jul, [facility] [place] [facility] [address] [facility] [id number] [place] [address]- 6073 Jul, [facility] [place] [facility] [address] [facility] [id number] [place] [address]- 1626 Jul, [facility] [place] [facility] [address] [id number] [place] [address]- 1892 Jul, [facility] [place] [facility] [address] [id number], [place] [address]- 9430 18 Jun, 2012 [facility] [place] [facility] [address] [id number] [place] [address]- 0177 06 Jun, 2012 [facility] [place] [facility] [address] [facility] [id number] [place] [address]- 2934 05 Jun, 2012 [facility] [place] [facility] [address] [id number] [place] 5467 May, [facility] [place] [facility] [address] [id number] [place] [address] 2541 May, [facility] [address] [id number] [place] [address] 2546 Apr, [facility] [address] [id number] [place] [address]- 2546 Apr, [facility] [address] [id number] [place] [address]- 6754 Mar, [facility] [address] [id number] [place] [address]- 7846 February, [facility] [address] [id number] [place] [address]- 9686 February, [facility] [address] [id number] [place] [address]- 1956 February, [facility] [address] [id number] [place] [address]- 5803 February, [facility] [address] [id number] [place] [address]- 7392 February, [facility] [address] [id number] [place] [address]- 4846 February, [facility] [address] [id number] [place] [address]- 2546 February, [facility] [address] [id number] [place] [address]- 9666 Jan, [facility] [place] [facility] [address] [id number] [place] [address]- 5324 Dec, [facility] [place] [facility] [address] [id number] [place] [address]- 8506 Dec, [facility] [place] [facility] [address] [id number] [place] [address]- 3206 Oct, [facility] [place] [facility] [address] [id number] [place] [address]- 7877 Oct, [facility] [address] [id number] [place] [address]- 0069 Oct, [facility] [place] [facility] [address] [id number] [place] [address]- 2686 Oct, [facility] [place] [facility] [address] [id number] [place] [address]- 3916 Oct, [facility] [place] [facility] [address] [id number] [place] [address]- 9682 Oct, [facility] [address] [id number] [place] [address]- 6796 Oct, [facility] [address] [id number] [place] [address]- 6674 Oct, [facility] [address] [id number] [place] [address]- 7453 Oct, [facility] [address] [id number] [place] [address]- 3715 Sep, [facility] [address] [id number] [place] [address]- 9713 Sep, [facility] [place] [facility] [address] [id number] [place] [address]- 7243 Sep, [facility] [address] [id number] [place] [address]- 3910 Sep, [facility] [place] [facility] [address] [id number] [place] [address]- 7065 Sep, [facility] [place] [facility] [address] [id number] [place] [address]- 3539 Sep, [facility] [place] [facility] [address] [id number] [place] [address]- 3967 Sep, [facility] [place] [facility] [address] [id number] [place] [address]- 1332 Sep, [facility] [place] [facility] [id number] [address]- 8567 13 Sep, 2011 [facility] [id number] [address]- 4016 Sep, [facility] [id number] [address]- 9406 15 Aug, 2011 [facility] [id number] [address]- 3649 Jul, [facility] [address] [address]- 8796 Sep, [facility] [id number] [place] [address] 53864- 0999 Aug, [facility] [address] [address]- 8670 Aug, [facility] [id number] [place] [address] 02927- 1324 Aug, [facility] [address] [address]- 7517 Aug, [facility] [address] [address]- 2835 Jul, [facility] [id number] [address]- 1392 Jul, [facility] [id number] [address]- 4468 Jul, IMMUNIZATIONS No Known Immunizations SOCIAL HISTORY Never Assessed REASON FOR VISIT Requests return call PLAN OF CARE VITAL SIGNS MEDICATIONS No [...]
--- OUTSIDE RECORDS SUMMARY | 2018-11-21 09:37 | XMS REPORT ---
Author Author GABRIELLE PANCHAL [facility] Address [address] [place] [address] Care Team Providers Care Matrix Inspector Name Role Phone ANSLEY GABRIELLE Unavailable PROBLEMS Type Condition ICD9-CM Code EIP37-VN Code Onset Dates Condition Status SNOMED Code Problem Lumbar radiculopathy M54.16 Active 707024944 Problem Gastroesophageal reflux disease, esophagitis presence not specified K21.9 Active 281013750 Problem Atrophic gastritis without hemorrhage K29.40 Active 15245638 Problem Acute allergic rhinitis, unspecified seasonality, unspecified trigger J30.9 Active 12922812 Problem Chronic pain due to trauma G89.21 Active 514722305 Problem Dysthymia F34.1 Active 13984189 Problem History of anemia Z86.2 Active 141433065 Problem Esophageal dysphagia R13.10 Active 48197500 ALLERGIES No Information ENCOUNTERS Encounter Location Date Diagnosis [place] [address] [address] Mar, [place] [address] [address] February, Chronic pain due to trauma G89.21 and Atrophic gastritis without hemorrhage K29.40 [place] [address] [place] [id number] [place] [address]85- 8[address] Jan, Chronic pain due to trauma G89.21 and Atrophic gastritis without hemorrhage K29.40 [place] [address] [address] Jan, Atrophic gastritis without hemorrhage K29.40 [place] [address] [place] [id number] [place] [address]8623- 8274 Dec, Atrophic gastritis without hemorrhage K29.40 and Chronic pain due to trauma G89.21 [place] [address] [place] [id number] [place] [address]51- 0222 Dec, Chronic pain due to trauma G89.21 and Lumbar radiculopathy M54.16 [place] [address] [place] [id number] [place] [address]98- 9586 Dec, Lumbar radiculopathy M54.16 [place] [address] [address]- [address] Dec, [place] [address] [address]- [address] Nov, Chronic pain due to trauma G89.21 [place] [address] [address]- [address] Nov, BMI 40.0-44.9, adult Z68.41 ; Lumbar radiculopathy M54.16 and Dysthymia F34.1 [place] [address] [place] [id number] [place] [address]185- 8108 Nov, [place] [address] [address]- [address] Nov, [place] [address] [place] [id number] [place] [address] 65386- 3697 Oct, [place] [address] [place] [id number] [place] [address]76- 8957 Oct, Chronic pain due to trauma G89.21 ; Gastroesophageal reflux disease, esophagitis presence not specified K21.9 ; Dysthymia F34.1 ; Lumbar radiculopathy M54.16 ; Esophageal dysphagia R13.10 and BMI 40.0-44.9, adult Z68.41 [facility] [address] [address] [id number] [place] [address] -[address] Sep, History of anemia Z86.2 and Acute allergic rhinitis, unspecified seasonality, unspecified trigger J30.9 [place] [address] [place] [id number] [place] [address] 91878- 0503 Sep, [facility] [place] [facility] [address] [id number] [place] [address] 14 Jul, 2016 [facility] [place] [facility] [address] [id number] [place] [address]- 9224 14 Jan, 2015 [facility] [place] [facility] [address] [id number] [place] [address] 2115 Jan, [facility] [place] [facility] [address] [id number] [place] [address]- [address]67 2013 [facility] [place] [facility] [address] [id number] [place] [address]- 4006 Nov, [facility] [place] [facility] [address] [id number] [place] [address]- 6321 Oct, [facility] [place] [facility] [address] [id number] [place] [address]- 0960 Aug, [facility] [place] [facility] [address] [id number] [place] [address]- 0838 Aug, [facility] [place] [facility] [address] [id number] [place] [address]- 4582 Jul, [facility] [place] [facility] [address] [id number] [place] [address]- 5696 Jul, [facility] [place] [facility] [address] [id number] [address] Jul, [facility] [place] [facility] [address] [id number] [place] [address]- 4396 Jul, [facility] [place] [facility] [address] [id number] [place] [address]- 3693 Jul, [facility] [place] [facility] [address] [id number] [place] [address]- 8619 24 Jun, 2013 [facility] [place] [facility] [address] [id number] [place] [address]- 2944 16 Jun, 2013 [facility] [place] [facility] [address] [id number] [place] [address]- 6543 Jun, [facility] [address] [id number] [place] [address]- 4682 May, [facility] [place] [facility] [address] [id number] [place] [address]- 3581 May, [facility] [address] [id number] [place] [address]- 5107 May, [facility] [place] [facility] [address] [id number] [place] [address]- 4712 May, [facility] [address] [id number] [place] [address]- 3837 Apr, [facility] [place] [facility] [address] [id number] [place] [address]- 7920 Apr, [facility] [address] [id number] [place] [address]- 0465 Apr, [facility] [place] [facility] [address] [id number] [place] [address]- 6526 Apr, [facility] [place] [facility] [address] [id number] [place] [address]- 1312 Mar, [facility] [address] [id number] [place] [address]- 4244 Mar, [facility] [place] [facility] [address] [id number] [place] [address]- 7445 Mar, [facility] [place] [facility] [address] [id number] [place] [address]- 0244 February, [facility] [place] [facility] [address] [id number] [place] [address]- 2552 February, [facility] [place] [facility] [address] [id number] [place] [address]- 5382 February, [facility] [place] [facility] [address] [id number] [place] [address]- 0031 February, [facility] [place] [facility] [address] [id number] [place] [address]- 2481 February, [facility] [address] [id number] [place] [address]- 2688 February, [facility] [address] [id number] [place] [address]- 2082 Jan, [facility] [address] [id number] [place] [address]- 1202 Jan, [facility] [address] [id number] [place] [address]- 6456 Dec, [facility] [address] [id number] [place] [address]- 9864 Dec, [facility] [address] [id number] [place] [address]- 4975 Dec, [facility] [address] [id number] [place] [address]- 1260 Dec, [facility] [address] [id number] [place] [address]- 7157 Dec, [facility] [address] [id number] [place] [address]- 0371 Nov, [facility] [address] [id number] [place] [address]- 0269 Nov, [facility] [address] [id number] [place] [address]- 8874 Nov, [facility] [place] [facility] [address] [id number] [place] [address]- 6740 Nov, [facility] [place] [facility] [address] [id number] [place] [address]- 5836 Nov, [facility] [place] [facility] [address] [id number] [place] [address]- 9102 Oct, [facility] [place] [facility] [address] [id number] [place] [address]- 3446 Oct, [facility] [place] [facility] [address] [id number] [place] [address]- 7394 Sep, [facility] [place] [facility] [address] [id number] [place] [address]- 9866 Sep, [facility] [place] [facility] [address] [id number] [place] [address]- 1076 Sep, [facility] [place] [facility] [address] [id number] [place] [address]- 7792 Sep, [facility] [place] [facility] [address] [id number] [place] [address]- 9587 Sep, [facility] [place] [facility] [address] [id number] [place] [address]- 1169 Sep, [facility] [place] [facility] [address] [id number] [place] [address]- 2863 Sep, [facility] [place] [facility] [address] [id number] [place] [address]- 7066 Sep, [facility] [place] [facility] [address] [id number] [place] [address]- 0596 Aug, [facility] [place] [facility] [address] [id number] [place] [address]- 4787 Aug, [facility] [place] [facility] [address] [id number] [place] [address]- 3680 Aug, [facility] [place] [facility] [address] [id number] [place] [address]- 3488 Aug, [facility] [place] [facility] [address] [id number] [place] [address]- 0214 Aug, [facility] [place] [facility] [address] [id number] [place] [address]- 8063 Aug, [facility] [place] [facility] [address] [id number] [place] [address]- 0560 Aug, [facility] [place] [facility] [address] [id number] [place] [address]- 4781 Jul, [facility] [place] [facility] [address] [id number] [place] [address] Jul, [facility] [place] [facility] [address] [id number] [place] [address] Jul, [facility] [place] [facility] [address] [id number] [place] [address]- 6137 Jul, [facility] [place] [facility] [address] [id number] [place] [address]- 8880 Jul, [facility] [place] [facility] [address] [id number] [place] [address]- 1024 Jul, [facility] [place] [facility] [address] [id number] [place] [address] Jul, [facility] [place] [facility] [address] [id number] [place] [address]- 0641 18 Jun, 2012 [facility] [place] [facility] [address] [id number] [place] [address]- 1798 06 Jun, 2012 [facility] [place] [facility] [address] [id number] [place] [address]- 1356 05 Jun, 2012 [facility] [place] [facility] [address] [id number] [place] [address]- 1287 May, [facility] [place] [facility] [address] [id number] [place] [address]- 1413 May, [facility] [place] [facility] [address] [id number] [place] [address]- 3246 Apr, [facility] [place] [facility] [address] [id number] [place] [address]- 2056 Apr, [facility] [place] [facility] [address] [id number] [place] [address]- 2712 Mar, [facility] [place] [facility] [address] [id number] [place] [address]- 3424 February, [facility] [address] [id number] [place] [address]- 3843 February, [facility] [place] [facility] [address] [id number] [place] [address]- 6596 February, [facility] [address] [id number] [place] [address] 2546 February, [facility] [place] [facility] [address] [id number] [place] [address]- 8586 February, [facility] [address] [id number] [place] [address]- 3416 February, [facility] [address] [id number] [place] [address]- 0916 February, [facility] [address] [id number] [place] [address]- 4736 Jan, [facility] [place] [facility] [address] [id number] [place] [address]- 3276 Dec, [facility] [place] [facility] [address] [id number] [place] [address]- 2067 Dec, [facility] [place] [facility] [address] [id number] [place] [address]- 7838 Oct, [facility] [place] [facility] [address] [id number] [place] [address]- 6979 Oct, [facility] [place] [facility] [address] [id number] [place] [address]- 2088 Oct, [facility] [place] [facility] [address] [id number] [place] [address]- 7066 Oct, [facility] [place] [facility] [address] [id number] [place] [address]- 8836 Oct, [facility] [place] [facility] [address] [id number] [place] [address]- 2546 Oct, [facility] [place] [facility] [address] [id number] [place] [address]- 3346 04 Oct, 2011 [facility] [address] [id number] [place] [address]- 5713 Oct, [facility] [address] [id number] [place] [address]- 2686 Oct, [facility] [address] [id number] [place] [address]- 6232 30 Sep, 2011 [facility] [address] [id number] [place] [address]- 2869 Sep, [facility] [address] [id number] [place] [address]- 9947 Sep, [facility] [address] [id number] [place] [address]- 7023 Sep, [facility] [address] [id number] [place] [address]- 6248 Sep, [facility] [address] [id number] [place] [address]- 4299 Sep, [facility] [address] [id number] [place] [address]- 9500 Sep, [facility] [address] [id number] [place] [address]- 7847 Sep, [facility] [address] [id number] [place] [address]- 8804 Sep, [facility] [address] [id number] [place] [address]- 2992 05 Sep, 2011 [facility] [place] [facility] [address] [id number] [place] [address]- 2568 15 Aug, 2011 [facility] [place] [facility] [address] [id number] [place] [address]- 0882 18 Jul, 2011 [facility] [address] [id number] [place] [address]- 1010 Sep, [facility] [address] [facility] [id number] [address]- 1075 Aug, [facility] [address] [place] [address] [id number] [address]- 1311 Aug, [facility] [address] [address] [id number] [address] Aug, [facility] [id number] [address] Aug, [facility] [address] [address] [id number] [address]- 9942 Jul, [facility] [address] [id number] [address]- 3374 Jul, [facility] [address] [id number] [address]- 0286 Jul, IMMUNIZATIONS No Known Immunizations SOCIAL HISTORY Never Assessed REASON FOR VISIT triage - CBowmanRN PLAN OF CARE VITAL SIGNS MEDICATIONS Unknown [...]
--- OUTSIDE RECORDS SUMMARY | 2018-11-21 09:45 | XMS REPORT | Continuity of Care Document ---
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 BILLING COORDINATOR Ot 756.12 02/26/2015 ARETHA ARZATE GROUP BILLING COORDINATOR Ot 611.71 02/26/2015 ARETHA ARZATE GROUP BILLING COORDINATOR Ot 611.79 02/26/2015 ABDELRAHMAN COLLINS, CADEN Guerrero Ot 397.0 02/26/2015 ABDELRAHMAN COLLINS, CADEN Guerrero Ot 424.0 02/26/2015 CADEN QUICK MD Ot 786.09 02/26/2015 ABDELRAHMAN COLLINS, CADEN Guerrero Ot 786.50 02/26/2015 ABDELRAHMAN COLLINS, CADEN Guerrero Ot 786.09 02/26/2015 ABDELRAHMAN COLLINS, CADEN Guerrero Ot 786.50 02/26/2015 ANOOP MIRANDA DO Ot V54.16 02/26/2015 STACY LOWEP Ot V76.12 02/26/2015 LADONNA GALLARDO MD Ot V72.84 02/26/2015 Ot 715.91 02/26/2015 Ot 715.31 03/02/2015 Ot 611.72 03/02/2015 Ot V76.12 03/02/2015 Ot 793.80 03/02/2015 Ot 793.80 03/02/2015 Ot 338.29 03/02/2015 Ot 724.2 03/02/2015 Ot 786.05 03/02/2015 Ot 780.93 03/02/2015 Ot 781.2 03/02/2015 Ot 331.9 03/02/2015 Ot 780.93 03/02/2015 Ot 781.2 03/02/2015 STACY LOWE [employer] BILLING COORDINATOR Ot 719.47 03/02/2015 STACY LOWE GROUP BILLING COORDINATOR Ot 722.52 03/02/2015 STACY LOWE GROUP BILLING COORDINATOR Ot 736.70 03/02/2015 STACY LOWE GROUP BILLING COORDINATOR Ot 737.30 03/02/2015 STACY LOWE GROUP BILLING COORDINATOR Ot 756.12 03/02/2015 ARETHA ARZATE GROUP BILLING COORDINATOR Ot 611.71 03/02/2015 ARETHA ARZATE GROUP BILLING COORDINATOR Ot 611.79 03/02/2015 ABDELRAHMAN COLLINS, CADEN Guerrero Ot 397.0 03/02/2015 ABDELRAHMAN COLLINS, CADEN Guerrero Ot 424.0 03/02/2015 ABDELRAHMAN COLLINS, CADEN Guerrero Ot 786.09 03/02/2015 ABDELRAHMAN COLLINS, CADEN Guerrero Ot 786.50 03/02/2015 ABDELRAHMAN COLLINS, CADEN Guerrero Ot 786.09 03/02/2015 ABDELRAHMAN COLLINS, CADEN Guerrero Ot 786.50 03/02/2015 ANOOP MIRANDA DO Ot V54.16 03/02/2015 STACY LOWEP Ot V76.12 03/02/2015 LADONNA GALLARDO MD Ot V72.84 03/02/2015 Ot 715.91 03/02/2015 Ot 715.31 03/05/2015 ENID DO, HEATHER Frank Ot V43.61 03/05/2015 ENID DO, HEATHER Frank Ot V54.81 03/05/2015 ENID DO, HEATHER Frank Ot V57.1 03/25/2015 ENID DO, HEATHER Frank Ot V43.61 03/25/2015 ENID DO, HEATHER Frank Ot V54.81 03/25/2015 ENID DO, HEATHER Frank Ot V57.1 04/27/2015 ENID DO, HEATHER Frank Ot V43.61 04/27/2015 ENID DO, HEATHER Frank Ot V54.81 04/27/2015 ENID DO, HEATHER Frank Ot V57.1 05/11/2015 ENID DO, HEATHER Frank Ot V43.61 SHOULDER JOINT REPLACEMENT STATUS 05/11/2015 ENID DO, HEATHER Frank Ot V54.81 AFTERCARE FOLLOWING JOINT REPLACEMENT 05/11/2015 ENID , HEATHER Frank Ot V57.1 PHYSICAL THERAPY NEC 05/20/2015 CAROLINA COLLINS, LEANDRO Reyes Ot V76.12 08/05/2015 ELIO LEA DO Ot E11.9 TYPE 2 DIABETES MELLITUS WITHOUT COMPLIC 08/05/2015 ELIO LEA DO Ot E78.5 HYPERLIPIDEMIA, UNSPECIFIED 08/05/2015 ELIO LEA DO Ot F32.9 MAJOR DEPRESSIVE DISORDER, SINGLE EPISOD 08/05/2015 ELIO LEA DO Ot F41.9 ANXIETY DISORDER, UNSPECIFIED 08/05/2015 ELIO LEA DO Ot G62.9 POLYNEUROPATHY, UNSPECIFIED 08/05/2015 ELIO LEA DO Ot G89.4 CHRONIC PAIN SYNDROME 08/05/2015 ELIO LEA DO Ot J44.9 CHRONIC OBSTRUCTIVE PULMONARY DISEASE, U 08/05/2015 ELIO LEA DO Ot M24.671 ANKYLOSIS, RIGHT ANKLE 08/05/2015 ELIO LEA DO Ot R26.9 UNSPECIFIED ABNORMALITIES OF GAIT AND MO 08/05/2015 ELIO LEA DO Ot S00.83XA CONTUSION OF OTHER PART OF HEAD, INITIAL 08/05/2015 ELIO LEA DO Ot S06.0X0A CONCUSSION WITHOUT LOSS OF CONSCIOUSNESS 08/05/2015 ELIO LEA DO Ot S19.9XXA UNSPECIFIED INJURY OF NECK, INITIAL ENCO 08/05/2015 ELIO LEA DO Ot W18.09XA STRIKING AGAINST OTH OBJECT W SUBSEQUENT 08/05/2015 ELIO LEA DO Ot Y92.[address] IN SINGLE-FAMILY (PRIVATE) HO 08/05/2015 ELIO LEA DO Ot Z23 ENCOUNTER FOR IMMUNIZATION 08/05/2015 ELIO LEA DO Ot Z87.891 PERSONAL HISTORY OF NICOTINE DEPENDENCE 08/07/2015 Ot 611.72 08/07/2015 Ot V76.12 08/07/2015 Ot 793.80 08/07/2015 Ot 793.80 08/07/2015 Ot 338.29 08/07/2015 Ot 724.2 08/07/2015 Ot 786.05 08/07/2015 Ot 780.93 08/07/2015 Ot 781.2 08/07/2015 Ot 331.9 08/07/2015 Ot 780.93 08/07/2015 Ot 781.2 08/07/2015 STACY LOWE [employer] BILLING COORDINATOR Ot 719.47 08/07/2015 STACY LOWE [employer] BILLING COORDINATOR Ot 722.52 08/07/2015 STACY LOWE [employer] BILLING COORDINATOR Ot 736.70 08/07/2015 STACY LOWE [employer] BILLING COORDINATOR Ot 737.30 08/07/2015 STACY LOWE [employer] BILLING COORDINATOR Ot 756.12 08/07/2015 ARETHA ARZATE [employer] BILLING COORDINATOR Ot 611.71 08/07/2015 ARETHA ARZATE GROUP BILLING COORDINATOR Ot 611.79 08/07/2015 CADEN QUICK MD Ot 397.0 08/07/2015 CADEN QUICK MD Ot 424.0 08/07/2015 CADEN QUICK MD Ot 786.09 08/07/2015 CADEN QUICK MD Ot 786.50 08/07/2015 CADEN QUICK MD Ot 786.09 08/07/2015 CADEN QUICK MD Ot 786.50 08/07/2015 ANOOP MIRANDA DO Ot V54.16 08/07/2015 STACY LOWEP Ot V76.12 08/07/2015 LADONNA GALLARDO MD Ot V72.84 08/07/2015 Ot 715.91 08/07/2015 Ot 715.31 08/07/2015 LEANDRO FIGUEROA MD Ot V76.12 09/11/2015 Ot 611.72 09/11/2015 Ot V76.12 09/11/2015 Ot 793.80 09/11/2015 Ot 793.80 09/11/2015 Ot 338.29 09/11/2015 Ot 724.2 09/11/2015 Ot 786.05 09/11/2015 Ot 780.93 09/11/2015 Ot 781.2 09/11/2015 Ot 331.9 09/11/2015 Ot 780.93 09/11/2015 Ot 781.2 09/11/2015 STACY LOWE [employer] BILLING COORDINATOR Ot 719.47 09/11/2015 STACY LOWE [employer] BILLING COORDINATOR Ot 722.52 09/11/2015 STACY LOWE GROUP BILLING COORDINATOR Ot 736.70 09/11/2015 STACY LOWE [employer] BILLING COORDINATOR Ot 737.30 09/11/2015 STACY LOWE GROUP BILLING COORDINATOR Ot 756.12 09/11/2015 ARETHA ARZATE [employer] BILLING COORDINATOR Ot 611.71 09/11/2015 ARETHA ARZATE [employer] BILLING COORDINATOR Ot 611.79 09/11/2015 CADEN QUICK MD Ot 397.0 09/11/2015 CADEN QUICK MD Ot 424.0 09/11/2015 CADEN QUICK MD Ot 786.09 09/11/2015 CADEN QUICK MD Ot 786.50 09/11/2015 ABDELRAHMAN COLLINS, CADEN Guerrero Ot 786.09 09/11/2015 CADEN QUICK MD Ot 786.50 09/11/2015 ANOOP MIRANDA DO Ot V54.16 09/11/2015 STACY LOWE [employer] BILLING COORDINATOR Ot V76.12 09/11/2015 LADONNA GALLARDO MD Ot V72.84 09/11/2015 Ot 715.91 09/11/2015 Ot 715.31 09/11/2015 LEANDRO FIGUEROA MD Ot V76.12 10/05/2015 LEANDRO FIGUEROA MD Ot M41.9 10/05/2015 LEANDRO FIGUEROA MD Ot M47.894 10/15/2015 STACY LOWE [employer] BILL[employer] COORDINATOR Ot M47.894 10/15/2015 STACY LOWE [employer] BILL[employer] COORDINATOR Ot M47.896 10/21/2015 GWEN COLLINS, MATT Oneill Ot N39.0 URINARY TRACT INFECTION, SITE NOT SPECIF 10/21/2015 GWEN COLLINS, MATT Oneill Ot R07.89 OTHER CHEST PAIN 10/21/2015 GWEN COLLINS, MATT Oneill Ot R13.10 DYSPHAGIA, UNSPECIFIED 10/21/2015 GWEN COLLINS, MATT Oneill Ot R47.81 SLURRED SPEECH 10/22/2015 CAROLINA COLLINS, LEANDRO A Ot M41.9 10/22/2015 CAROLINA COLLINS, LEANDRO A Ot M47.894 10/29/2015 ENID DO, HEATHER F Ot M19.011 10/29/2015 ENID DO, HEATHER F Ot M75.101 10/29/2015 STACY LOWE [employer] BILLING COORDINATOR Ot M47.894 10/29/2015 STACY LOWE [employer] BILLING COORDINATOR Ot M47.896 11/05/2015 CAROLINA COLLINS, LEANDRO A Ot M41.9 11/05/2015 CAROLINA COLLINS, LEANDRO A Ot M47.894 11/05/2015 ENID DO, HEATHER F Ot M19.011 11/05/2015 ENID DO, HEATHER F Ot M75.101 11/17/2015 SHAVONNE COLLINS, AIRAM Chandra Ot G89.29 OTHER CHRONIC PAIN 11/17/2015 SHAVONNE COLLINS, AIRAM T Ot M25.511 PAIN IN RIGHT SHOULDER 12/10/2015 ENID DO, HEATHER F Ot M19.011 12/10/2015 ENID DO, HEATHER F Ot D64.9 ANEMIA, UNSPECIFIED 12/10/2015 ENID DO, HEATHER F Ot E11.9 TYPE 2 DIABETES MELLITUS WITHOUT COMPLIC 12/10/2015 ENID DO, HEATHER F Ot E78.0 PURE HYPERCHOLESTEROLEMIA 12/10/2015 ENID DO, HEATHER F Ot E87.1 HYPO-OSMOLALITY AND HYPONATREMIA 12/10/2015 ENID DO, HEATHER F Ot G47.30 SLEEP APNEA, UNSPECIFIED 12/10/2015 ENID DO, HEATHER F Ot G62.9 POLYNEUROPATHY, UNSPECIFIED 12/10/2015 ENID DO, HEATHER F Ot G89.4 CHRONIC PAIN SYNDROME 12/10/2015 ENID , HEATHER Frank Ot J44.9 CHRONIC OBSTRUCTIVE PULMONARY DISEASE, U 12/10/2015 ENID HEATHER DRUMMOND Ot K21.9 GASTRO-ESOPHAGEAL REFLUX DISEASE WITHOUT 12/10/2015 ENID , HEATHER Frank Ot M19.012 PRIMARY OSTEOARTHRITIS, LEFT SHOULDER 12/18/2015 ENID DO, HEATHER Frank Ot M19.011 12/18/2015 ENID , HEATHER Frank Ot Z01.811 12/18/2015 ENID DO, HEATHER Frank Ot Z01.812 12/18/2015 ENID DO, HEATHER Frank Ot Z11.2 12/29/2015 CAROLINA COLLINS, LEANDRO Reyes Ot E11.9 TYPE 2 DIABETES MELLITUS WITHOUT COMPLIC 12/29/2015 CAROLINA COLLINS, LEANDRO Reyes Ot E86.0 DEHYDRATION 12/29/2015 LEANDRO FIGUEROA MD Ot K52.9 NONINFECTIVE GASTROENTERITIS AND COLITIS 12/29/2015 LEANDRO FIGUEROA MD Ot R41.0 DISORIENTATION, UNSPECIFIED 12/31/2015 ENID DO HEATHER Frank Ot M19.011 12/31/2015 ENID DO, HEATHER Frank Ot Z01.811 12/31/2015 ENID DO, HEATHER Frank Ot Z01.812 12/31/2015 ENID , HEATHER Frank Ot Z11.2 01/28/2016 ENID HEATHER Frank Ot M79.604 01/28/2016 ENID HEATHER Frank Ot R22.41 02/16/2016 ABDELRAHMAN COLLINS, CADEN Guerrero Ot E78.2 MIXED HYPERLIPIDEMIA 02/16/2016 ABDELRAHMAN COLLINS, CADEN Guerrero Ot I10 ESSENTIAL (PRIMARY) HYPERTENSION 02/16/2016 ABDELRAHMAN COLLINS, CADEN Guerrero Ot R06.00 DYSPNEA, UNSPECIFIED 02/16/2016 ABDELRAHMAN COLLINS, CADEN Guerrero Ot R09.89 OTH SYMPTOMS AND SIGNS INVOLVING THE CIR 02/16/2016 ENID DO HEATHER Frank Ot M79.604 PAIN IN RIGHT LEG 02/16/2016 ENID DO HEATHER Frank Ot R22.41 LOCALIZED SWELLING, MASS AND LUMP, RIGHT 03/01/2016 ENID DO HEATHER Frank Ot M79.604 PAIN IN RIGHT LEG 03/01/2016 ENID DO HEATHER Frank Ot R22.41 LOCALIZED SWELLING, MASS AND LUMP, RIGHT 03/09/2016 CADEN QUICK MD Ot E78.2 MIXED HYPERLIPIDEMIA 03/09/2016 CADEN QUICK MD Ot I10 ESSENTIAL (PRIMARY) HYPERTENSION 03/09/2016 CADEN QUICK MD Ot R06.00 DYSPNEA, UNSPECIFIED 03/09/2016 CADEN QUICK MD Ot R09.89 OTH SYMPTOMS AND SIGNS INVOLVING THE CIR 03/14/2016 ENID HEATHER DRUMMOND Ot M25.511 PAIN IN RIGHT SHOULDER 03/31/2016 CADEN QUICK MD Ot E78.2 MIXED HYPERLIPIDEMIA 03/31/2016 CADEN QUICK MD Ot I10 ESSENTIAL (PRIMARY) HYPERTENSION 03/31/2016 CADEN QUICK MD Ot R06.00 DYSPNEA, UNSPECIFIED 03/31/2016 CADEN QUICK MD Ot R09.89 OTH SYMPTOMS AND SIGNS INVOLVING THE CIR 04/04/2016 HEATHER ROSSI DO Ot M25.511 PAIN IN RIGHT SHOULDER 05/30/2016 FRANCY VERDIN DO Ot M25.511 PAIN IN RIGHT SHOULDER 06/16/2016 FRANCY VERDIN DO Ot M25.511 PAIN IN RIGHT SHOULDER 07/01/2016 ENID HEATHER DRUMMOND Ot M25.511 PAIN IN RIGHT SHOULDER 07/21/2016 HEATHER ROSSI DO Ot M25.511 PAIN IN RIGHT SHOULDER 07/28/2016 HEATHER ROSSI DO Ot M25.511 PAIN IN RIGHT SHOULDER 11/22/2017 MARK STANLEY MD Ot R10.12 LEFT UPPER QUADRANT PAIN 11/22/2017 MARK STANLEY MD Ot R10.13 EPIGASTRIC PAIN 11/22/2017 MARK STANLEY MD Ot R13.10 DYSPHAGIA, UNSPECIFIED 11/22/2017 MARK STANLEY MD Ot Z01.818 ENCOUNTER FOR OTHER PREPROCEDURAL EXAMIN 11/22/2017 MARK STANLEY MD Ot Z86.010 PERSONAL HISTORY OF COLONIC POLYPS 12/01/2017 STACY LOWEP Ot 719.47 JOINT PAIN-ANKLE 12/01/2017 STACY LOWEP Ot 722.52 LUMB/LUMBOSAC DISC DEGEN 12/01/2017 STACY LOWEP Ot 736.70 ACQ ANKLE-FOOT DEF NOS 12/01/2017 STACY LOWEP Ot 737.30 IDIOPATHIC SCOLIOSIS 12/01/2017 STACY LOWE [facility] Ot 756.12 SPONDYLOLISTHESIS 12/01/2017 ARETHA ARZATE [facility] Ot 611.71 MASTODYNIA 12/01/2017 ARETHA ARZATE [facility] Ot 611.79 SYMPTOMS IN BREAST NEC 12/01/2017 ABDELRAHMAN COLLINS, CADEN Guerrero Ot 397.0 TRICUSPID VALVE DISEASE 12/01/2017 CADEN QUICK MD Ot 424.0 MITRAL VALVE DISORDER 12/01/2017 CADEN QUICK MD Ot 786.09 RESPIRATORY ABNORM NEC 12/01/2017 CADEN QUICK MD Ot 786.50 CHEST PAIN NOS 12/01/2017 CADEN QUICK MD Ot 786.09 RESPIRATORY ABNORM NEC 12/01/2017 CADEN QUICK MD Ot 786.50 CHEST PAIN NOS 12/01/2017 ANOOP MIRANDA DO Ot V54.16 AFTERCARE HEALING TRAUMATIC FX LOWER LEG 12/01/2017 STACY LOWE [facility] Ot V76.12 OTH SCREEN MAMMO-MALIGN NEOPLASM OF TEREZA 12/01/2017 PAULINA COLLINS, LADONNA Ot V72.84 EXAM PRE-OPERATIVE NOS 12/01/2017 Ot 715.91 OSTEOARTHROS NOS-SHLDER 12/01/2017 Ot 715.31 LOC OSTEOARTH NOS-SHLDER 12/01/2017 CAROLINA COLLINS, LEANDRO Reyes Ot V76.12 OTH SCREEN MAMMO-MALIGN NEOPLASM OF TEREZA 12/01/2017 BILLY CARO APRN Ot R06.02 SHORTNESS OF BREATH 12/01/2017 STACY LOWE [facility] Ot 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, THORACIC REGION 12/01/2017 STACY LOWE [facility] Ot M47.896 OTHER SPONDYLOSIS, LUMBAR REGION 12/01/2017 LEANDRO FIGUEROA MD Ot M41.9 SCOLIOSIS, UNSPECIFIED 12/01/2017 LEANDRO FIGUEROA MD Ot 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, THORACIC REGION 12/01/2017 HEATHER ROSSI DO, Ot M19.011 PRIMARY OSTEOARTHRITIS, RIGHT SHOULDER 12/01/2017 HEATHER ROSSI DO Ot M75.101 UNSP ROTATR-CUFF TEAR/RUPTR OF RIGHT UNA 12/01/2017 HEATHER ROSSI DO, Ot M19.011 PRIMARY OSTEOARTHRITIS, RIGHT SHOULDER 12/01/2017 HEATHER ROSSI DO Ot Z01.811 ENCOUNTER FOR PREPROCEDURAL RESPIRATORY 12/01/2017 HEATHER ROSSI DO Ot Z01.812 ENCOUNTER FOR PREPROCEDURAL LABORATORY E 12/01/2017 HEATHER ROSSI DO Ot Z11.2 ENCOUNTER FOR SCREENING FOR OTHER BACTER 12/01/2017 HEATHER ROSSI DO Ot M79.604 PAIN IN RIGHT LEG 12/01/2017 HEATHER ROSSI DO Ot R22.41 LOCALIZED SWELLING, MASS AND LUMP, RIGHT 12/01/2017 ABDELRAHMAN COLLINS, CADEN Guerrero Ot E78.2 MIXED HYPERLIPIDEMIA 12/01/2017 CADEN QUICK MD Ot I10 ESSENTIAL (PRIMARY) HYPERTENSION 12/01/2017 ABDELRAHMAN COLLINS, CADEN Guerrero Ot R06.00 DYSPNEA, UNSPECIFIED 12/01/2017 CADEN QUICK MD Ot R09.89 OTH SYMPTOMS AND SIGNS INVOLVING THE CIR 12/01/2017 HEATHER ROSSI DO Ot M25.511 PAIN IN RIGHT SHOULDER 12/01/2017 LIZETH COLLINS, MARK Oneill Ot R10.12 LEFT UPPER QUADRANT PAIN 12/01/2017 MARK STANLEY MD Ot R10.13 EPIGASTRIC PAIN 12/01/2017 MARK STANLEY MD Ot R13.10 DYSPHAGIA, UNSPECIFIED 12/01/2017 LIZETH COLLINS, MARK Oneill Ot Z01.818 ENCOUNTER FOR OTHER PREPROCEDURAL EXAMIN 12/01/2017 MARK STANLEY MD Ot Z86.010 PERSONAL HISTORY OF COLONIC POLYPS 12/04/2017 KATHIA ELLIS MD Ot E11.9 TYPE 2 DIABETES MELLITUS WITHOUT COMPLIC 12/04/2017 KATHIA ELLIS MD Ot E78.00 PURE HYPERCHOLESTEROLEMIA, UNSPECIFIED 12/04/2017 KATHIA ELLIS MD Ot F11.23 OPIOID DEPENDENCE WITH WITHDRAWAL 12/04/2017 KATHIA ELLIS MD Ot F32.9 MAJOR DEPRESSIVE DISORDER, SINGLE EPISOD 12/04/2017 KATHIA ELLIS MD Ot F41.9 ANXIETY DISORDER, UNSPECIFIED 12/04/2017 KATHIA ELLIS MD Ot G25.2 OTHER SPECIFIED FORMS OF TREMOR 12/04/2017 KATHIA ELLIS MD Ot G47.30 SLEEP APNEA, UNSPECIFIED 12/04/2017 KATHIA ELLIS MD Ot G89.4 CHRONIC PAIN SYNDROME 12/04/2017 KATHIA ELLIS MD, Ot J18.9 PNEUMONIA, UNSPECIFIED ORGANISM 12/04/2017 KATHIA ELLIS MD, Ot J44.9 CHRONIC OBSTRUCTIVE PULMONARY DISEASE, U 12/04/2017 KATHIA ELLIS MD Ot K21.9 GASTRO-ESOPHAGEAL REFLUX DISEASE WITHOUT 12/04/2017 KATHIA ELLIS MD Ot M19.91 PRIMARY OSTEOARTHRITIS, UNSPECIFIED SITE 12/04/2017 KATHIA ELLIS MD Ot M25.551 PAIN IN RIGHT HIP 12/04/2017 KATHIA ELLIS MD, Ot M25.552 PAIN IN LEFT HIP 12/04/2017 KATHIA ELLIS MD, Ot M54.9 DORSALGIA, UNSPECIFIED 12/04/2017 KATHIA ELLIS MD Ot R19.7 DIARRHEA, UNSPECIFIED 12/04/2017 KATHIA ELLIS MD Ot R55 SYNCOPE AND COLLAPSE 12/04/2017 KATHIA ELLIS MD Ot Z23 ENCOUNTER FOR IMMUNIZATION 12/04/2017 KATHIA ELLIS MD Ot Z86.19 PERSONAL HISTORY OF OTHER INFECTIOUS AND 12/04/2017 KATHIA ELLIS MD, Ot Z86.73 PRSNL HX OF TIA (TIA), AND CEREB INFRC W 12/04/2017 KATHIA ELLIS MD, Ot Z87.891 PERSONAL HISTORY OF NICOTINE DEPENDENCE 12/04/2017 KATHIA ELLIS MD Ot Z91.81 HISTORY OF FALLING 12/04/2017 KATHIA ELLIS MD Ot 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 12/04/2017 KATHIA ELLIS MD Ot Z96.612 PRESENCE OF LEFT ARTIFICIAL SHOULDER LORAINE 12/04/2017 KATHIA ELLIS MD Ot Z96.653 PRESENCE OF ARTIFICIAL KNEE JOINT, BILAT 12/04/2017 KATHIA ELLIS MD Ot Z98.84 BARIATRIC SURGERY STATUS 12/04/2017 KATHIA ELLIS MD Ot Z98.890 OTHER SPECIFIED POSTPROCEDURAL STATES 12/04/2017 KATHIA ELLIS MD Ot Z99.81 DEPENDENCE ON SUPPLEMENTAL OXYGEN 01/01/2018 MARK STANLEY MD Ot R10.12 LEFT UPPER QUADRANT PAIN 01/01/2018 MARK STANLEY MD Ot R10.13 EPIGASTRIC PAIN 01/01/2018 MARK STANLEY MD Ot R13.10 DYSPHAGIA, UNSPECIFIED 01/01/2018 MARK STANLEY MD Ot Z01.818 ENCOUNTER FOR OTHER PREPROCEDURAL EXAMIN 01/01/2018 MARK STANLEY MD Ot Z12.11 ENCOUNTER FOR SCREENING FOR MALIGNANT NE 01/01/2018 MARK STANLEY MD Ot Z86.010 PERSONAL HISTORY OF COLONIC POLYPS 01/02/2018 MARK STANLEY MD Ot R10.12 LEFT UPPER QUADRANT PAIN 01/02/2018 MARK STANLEY MD Ot R10.13 EPIGASTRIC PAIN 01/02/2018 MARK STANLEY MD Ot R13.10 DYSPHAGIA, UNSPECIFIED 01/02/2018 MARK STANLEY MD Ot Z01.818 ENCOUNTER FOR OTHER PREPROCEDURAL EXAMIN 01/02/2018 MARK STANLEY MD Ot Z12.11 ENCOUNTER FOR SCREENING FOR MALIGNANT NE 01/02/2018 MARK STANLEY MD Ot Z86.010 PERSONAL HISTORY OF COLONIC POLYPS 01/05/2018 MARK STANLEY MD Ot D12.2 BENIGN NEOPLASM OF ASCENDING COLON 01/05/2018 MARK STANLEY MD Ot D12.3 BENIGN NEOPLASM OF TRANSVERSE COLON 01/05/2018 MARK STANLEY MD Ot D12.4 BENIGN NEOPLASM OF DESCENDING COLON 01/05/2018 MARK STANLEY MD Ot K25.9 GASTRIC ULCER, UNSP ACUTE OR CHRONIC, 01/05/2018 MARK STANLEY MD Ot K57.30 DVRTCLOS OF LG INT W/O PERFORATION OR AB 01/05/2018 MARK STANLEY MD Ot K64.0 FIRST DEGREE HEMORRHOIDS 01/05/2018 MARK STANLEY MD Ot R13.10 DYSPHAGIA, UNSPECIFIED 01/05/2018 MARK STANLEY MD Ot Z12.11 ENCOUNTER FOR SCREENING FOR MALIGNANT NE 01/05/2018 MARK STANLEY MD Ot Z80.0 FAMILY HISTORY OF MALIGNANT NEOPLASM OF 01/05/2018 MARK STANLEY MD Ot Z86.010 PERSONAL HISTORY OF COLONIC POLYPS 01/05/2018 MARK STANLEY MD Ot Z98.84 BARIATRIC SURGERY STATUS 04/21/2018 STACY LOWE GROUP BILLING COORDINATOR Ot 719.47 JOINT PAIN-ANKLE 04/21/2018 STACY LOWE GROUP BILLING COORDINATOR Ot 722.52 LUMB/LUMBOSAC DISC DEGEN 04/21/2018 STACY LOWE GROUP BILLING COORDINATOR Ot 736.70 ACQ ANKLE-FOOT DEF NOS 04/21/2018 STACY LOWE GROUP BILLING COORDINATOR Ot 737.30 IDIOPATHIC SCOLIOSIS 04/21/2018 STACY LOWE GROUP BILLING COORDINATOR Ot 756.12 SPONDYLOLISTHESIS 04/21/2018 ARETHA ARZATE GROUP BILLING COORDINATOR Ot 611.71 MASTODYNIA 04/21/2018 ARETHA ARZATE GROUP BILLING COORDINATOR Ot 611.79 SYMPTOMS IN BREAST NEC 04/21/2018 ABDELRAHMAN COLLINS, CADEN Guerrero Ot 397.0 TRICUSPID VALVE DISEASE 04/21/2018 ABDELRAHMAN COLLINS, CADEN Guerrero Ot 424.0 MITRAL VALVE DISORDER 04/21/2018 CADEN QUICK MD Ot 786.09 RESPIRATORY ABNORM NEC 04/21/2018 ABDELRAHMAN COLLINS, CADEN Guerrero Ot 786.50 CHEST PAIN NOS 04/21/2018 CADEN QUICK MD Ot 786.09 RESPIRATORY ABNORM NEC 04/21/2018 CADEN QUICK MD Ot 786.50 CHEST PAIN NOS 04/21/2018 ANOOP MIRANDA DO Ot V54.16 AFTERCARE HEALING TRAUMATIC FX LOWER LEG 04/21/2018 STACY LOWE [facility] Ot V76.12 OTH SCREEN MAMMO-MALIGN NEOPLASM OF TEREZA 04/21/2018 PAULINA COLLINS, LADONNA Ot V72.84 EXAM PRE-OPERATIVE NOS 04/21/2018 Ot 715.91 OSTEOARTHROS NOS-SHLDER 04/21/2018 Ot 715.31 LOC OSTEOARTH NOS-SHLDER 04/21/2018 CAROLINA COLLINS, LEANDRO Reyes Ot V76.12 OTH SCREEN MAMMO-MALIGN NEOPLASM OF TEREZA 04/21/2018 BILLY CARO APRN Ot R06.02 SHORTNESS OF BREATH 04/21/2018 STACY LOWE GROUP BILLING COORDINATOR Ot 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, THORACIC REGION 04/21/2018 STACY LOWE GROUP BILLING COORDINATOR Ot M47.896 OTHER SPONDYLOSIS, LUMBAR REGION 04/21/2018 CAROLINA COLLINS, LEANDRO Reyes Ot M41.9 SCOLIOSIS, UNSPECIFIED 04/21/2018 CAROLINA COLLINS, LEANDRO Reyes Ot 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, THORACIC REGION 04/21/2018 HEATHER ROSSI DO Ot M19.011 PRIMARY OSTEOARTHRITIS, RIGHT SHOULDER 04/21/2018 HEATHER ROSSI DO Ot M75.101 UNSP ROTATR-CUFF TEAR/RUPTR OF RIGHT UNA 04/21/2018 HEATHER ROSSI DO Ot M19.011 PRIMARY OSTEOARTHRITIS, RIGHT SHOULDER 04/21/2018 HEATHER ROSSI DO Ot Z01.811 ENCOUNTER FOR PREPROCEDURAL RESPIRATORY 04/21/2018 HEATHER ROSSI DO Ot Z01.812 ENCOUNTER FOR PREPROCEDURAL LABORATORY E 04/21/2018 HEATHER ROSSI DO Ot Z11.2 ENCOUNTER FOR SCREENING FOR OTHER BACTER 04/21/2018 HEATHER ROSSI DO Ot M79.604 PAIN IN RIGHT LEG 04/21/2018 HEATHER ROSSI DO Ot R22.41 LOCALIZED SWELLING, MASS AND LUMP, RIGHT 04/21/2018 ABDELRAHMAN COLLINS, CADEN Guerrero Ot E78.2 MIXED HYPERLIPIDEMIA 04/21/2018 ABDELRAHMAN COLLINS, CADEN Guerrero Ot I10 ESSENTIAL (PRIMARY) HYPERTENSION 04/21/2018 ABDELRAHMAN COLLINS, CADEN Guerrero Ot R06.00 DYSPNEA, UNSPECIFIED 04/21/2018 ABDELRAHMAN COLLINS, CADEN Guerrero Ot R09.89 OTH SYMPTOMS AND SIGNS INVOLVING THE CIR 04/21/2018 HEATHER ROSSI DO Ot M25.511 PAIN IN RIGHT SHOULDER 04/21/2018 LIZETH COLLINS, MARK Oneill Ot R10.12 LEFT UPPER QUADRANT PAIN 04/21/2018 LIZETH COLLINS, MARK Oneill Ot R10.13 EPIGASTRIC PAIN 04/21/2018 LIZETH COLLINS, MARK Oneill Ot R13.10 DYSPHAGIA, UNSPECIFIED 04/21/2018 MARK STANLEY MD Ot Z01.818 ENCOUNTER FOR OTHER PREPROCEDURAL EXAMIN 04/21/2018 LIZETH COLLINS, MARK Oneill Ot Z86.010 PERSONAL HISTORY OF COLONIC POLYPS 04/21/2018 JH BARAHONA APRN Ot E11.9 TYPE 2 DIABETES MELLITUS WITHOUT COMPLIC 04/21/2018 JH BARAHONA APRN Ot E78.00 PURE HYPERCHOLESTEROLEMIA, UNSPECIFIED 04/21/2018 JH BARAHONA APRN Ot F32.9 MAJOR DEPRESSIVE DISORDER, SINGLE EPISOD 04/21/2018 JH BARAHONA APRN Ot F41.9 ANXIETY DISORDER, UNSPECIFIED 04/21/2018 JH BARAHONA APRN Ot G47.30 SLEEP APNEA, UNSPECIFIED 04/21/2018 JH BARAHONA APRN Ot J44.9 CHRONIC OBSTRUCTIVE PULMONARY DISEASE, U 04/21/2018 JH BARAHONA APRN Ot K21.9 GASTRO-ESOPHAGEAL REFLUX DISEASE WITHOUT 04/21/2018 JH BARAHONA APRN Ot R40.2142 COMA SCALE, EYES OPEN, SPONTANEOUS, EMR 04/21/2018 JH BARAHONA APRN Ot R40.2252 COMA SCALE, BEST VERBAL RESPONSE, ORIENT 04/21/2018 JH BARAHONA APRN Ot R40.2362 COMA SCALE, BEST MOTOR RESPONSE, OBEYS C 04/21/2018 JH BARAHONA APRN Ot S09.90XA UNSPECIFIED INJURY OF HEAD, INITIAL ENCO 04/21/2018 JH BARAHONA APRN Ot S70.01XA CONTUSION OF RIGHT HIP, INITIAL ENCOUNTE 04/21/2018 JH BARAHONA APRN Ot W01.0XXA FALL SAME LEV FROM SLIP/TRIP W/O STRIKE 04/21/2018 JH BARAHONA APRN Ot Z86.73 PRSNL HX OF TIA (TIA), AND CEREB INFRC W 04/21/2018 JH BARAHONA APRN Ot Z87.19 PERSONAL HISTORY OF OTHER DISEASES OF TH 04/21/2018 JH BARAHONA APRN Ot Z87.39 PERSONAL HISTORY OF DISEASES OF THE MS S 04/21/2018 JH BARAHONA APRN Ot Z87.891 PERSONAL HISTORY OF NICOTINE DEPENDENCE 04/21/2018 JH BARAHONA APRN Ot Z88.0 ALLERGY STATUS TO PENICILLIN 04/21/2018 JH BARAHONA APRN Ot Z88.8 ALLERGY STATUS TO OTH DRUG/MEDS/BIOL SUB 04/21/2018 JH BARAHONA APRN Ot Z90.710 ACQUIRED ABSENCE OF BOTH CERVIX AND UTER 04/21/2018 JH BARAHONA APRN Ot Z98.84 BARIATRIC SURGERY STATUS 04/21/2018 JH BARAHONA APRN Ot Z98.890 OTHER SPECIFIED POSTPROCEDURAL STATES 04/24/2018 JH BARAHONA APRN Ot E11.9 TYPE 2 DIABETES MELLITUS WITHOUT COMPLIC 04/24/2018 JH BARAHONA APRN Ot E78.00 PURE HYPERCHOLESTEROLEMIA, UNSPECIFIED 04/24/2018 JH BARAHONA APRN Ot F32.9 MAJOR DEPRESSIVE DISORDER, SINGLE EPISOD 04/24/2018 JH BARAHONA APRN Ot F41.9 ANXIETY DISORDER, UNSPECIFIED 04/24/2018 JH BARAHONA APRN Ot G47.30 SLEEP APNEA, UNSPECIFIED 04/24/2018 JH BARAHONA APRN Ot J44.9 CHRONIC OBSTRUCTIVE PULMONARY DISEASE, U 04/24/2018 JH BARAHONA APRN Ot K21.9 GASTRO-ESOPHAGEAL REFLUX DISEASE WITHOUT 04/24/2018 JH BARAHONA APRN Ot R40.2142 COMA SCALE, EYES OPEN, SPONTANEOUS, EMR 04/24/2018 JH BARAHONA APRN Ot R40.2252 COMA SCALE, BEST VERBAL RESPONSE, ORIENT 04/24/2018 JH BARAHONA APRN Ot R40.2362 COMA SCALE, BEST MOTOR RESPONSE, OBEYS C 04/24/2018 JH BARAHONA APRN Ot S09.90XA UNSPECIFIED INJURY OF HEAD, INITIAL ENCO 04/24/2018 JH BARAHONA APRN Ot S70.01XA CONTUSION OF RIGHT HIP, INITIAL ENCOUNTE 04/24/2018 JH BARAHONA APRN Ot W01.0XXA FALL SAME LEV FROM SLIP/TRIP W/O STRIKE 04/24/2018 JH BARAHONA APRN Ot Z86.73 PRSNL HX OF TIA (TIA), AND CEREB INFRC W 04/24/2018 JH BARAHONA APRN Ot Z87.19 PERSONAL HISTORY OF OTHER DISEASES OF TH 04/24/2018 JH BARAHONA APRN Ot Z87.39 PERSONAL HISTORY OF DISEASES OF THE MS S 04/24/2018 JH BARAHONA APRN Ot Z87.891 PERSONAL HISTORY OF NICOTINE DEPENDENCE 04/24/2018 JH BARAHONA APRN Ot Z88.0 ALLERGY STATUS TO PENICILLIN 04/24/2018 JH BARAHONA APRN, Ot Z88.8 ALLERGY STATUS TO OTH DRUG/MEDS/BIOL SUB 04/24/2018 JH BARAHONA APRN Ot Z90.710 ACQUIRED ABSENCE OF BOTH CERVIX AND UTER 04/24/2018 JH BARAHONA APRN Ot Z98.84 BARIATRIC SURGERY STATUS 04/24/2018 JH BARAHONA APRN Ot Z98.890 OTHER SPECIFIED POSTPROCEDURAL STATES 06/28/2018 AIRAM MARVIN MD Ot E11.9 TYPE 2 DIABETES MELLITUS WITHOUT COMPLIC 06/28/2018 AIRAM MARVIN MD Ot E78.00 PURE HYPERCHOLESTEROLEMIA, UNSPECIFIED 06/28/2018 AIRAM MARVIN MD Ot F32.9 MAJOR DEPRESSIVE DISORDER, SINGLE EPISOD 06/28/2018 AIRAM MARVIN MD, Ot F41.9 ANXIETY DISORDER, UNSPECIFIED 06/28/2018 AIRAM MARVIN MD, Ot G47.30 SLEEP APNEA, UNSPECIFIED 06/28/2018 AIRAM MARVIN MD, Ot J44.9 CHRONIC OBSTRUCTIVE PULMONARY DISEASE, U 06/28/2018 AIRAM MARVIN MD, Ot K21.9 GASTRO-ESOPHAGEAL REFLUX DISEASE WITHOUT 06/28/2018 AIRAM MARVIN MD Ot M25.532 PAIN IN LEFT WRIST 06/28/2018 AIRAM MARVIN MD, Ot M25.552 PAIN IN LEFT HIP 06/28/2018 AIRAM MARVIN MD Ot R40.2142 COMA SCALE, EYES OPEN, SPONTANEOUS, EMR 06/28/2018 AIRAM MARVIN MD, Ot R40.2252 COMA SCALE, BEST VERBAL RESPONSE, ORIENT 06/28/2018 AIRAM MARVIN MD, Ot R40.2362 COMA SCALE, BEST MOTOR RESPONSE, OBEYS C 06/28/2018 AIRAM MARVIN MD, Ot S69.92XA UNSP INJURY OF LEFT WRIST, HAND AND FING 06/28/2018 AIRAM MARVIN MD Ot W01.0XXA FALL SAME LEV FROM SLIP/TRIP W/O STRIKE 06/28/2018 AIRAM MARVIN MD, Ot Z80.0 FAMILY HISTORY OF MALIGNANT NEOPLASM OF 06/28/2018 AIRAM MARVIN MD, Ot Z82.49 FAMILY HX OF ISCHEM HEART DIS AND OTH DI 06/28/2018 AIRAM MARVIN MD, Ot Z85.828 PERSONAL HISTORY OF OTHER MALIGNANT NEOP 06/28/2018 AIRAM MARVIN MD, Ot Z86.73 PRSNL HX OF TIA (TIA), AND CEREB INFRC W 06/28/2018 AIRAM MARVIN MD, Ot Z87.19 PERSONAL HISTORY OF OTHER DISEASES OF TH 06/28/2018 AIRAM MARVIN MD, Ot Z87.891 PERSONAL HISTORY OF NICOTINE DEPENDENCE 06/28/2018 AIRAM MARVIN MD, Ot Z88.0 ALLERGY STATUS TO PENICILLIN 06/28/2018 AIRAM MARVIN MD, Ot Z88.8 ALLERGY STATUS TO OTH DRUG/MEDS/BIOL SUB 06/28/2018 AIRAM MARVIN MD, Ot Z90.710 ACQUIRED ABSENCE OF BOTH CERVIX AND UTER 06/28/2018 AIRAM MARVIN MD, Ot Z96.653 PRESENCE OF ARTIFICIAL KNEE JOINT, BILAT 06/28/2018 AIRAM MARIVN MD, Ot Z98.84 BARIATRIC SURGERY STATUS 06/28/2018 STACY LOWE GROUP BILLING COORDINATOR Ot 719.47 JOINT PAIN-ANKLE 06/28/2018 STACY LOWE GROUP BILLING COORDINATOR Ot 722.52 LUMB/LUMBOSAC DISC DEGEN 06/28/2018 STACY LOWE GROUP BILLING COORDINATOR Ot 736.70 ACQ ANKLE-FOOT DEF NOS 06/28/2018 STACY LOWE GROUP BILLING COORDINATOR Ot 737.30 IDIOPATHIC SCOLIOSIS 06/28/2018 STACY LOWE GROUP BILLING COORDINATOR Ot 756.12 SPONDYLOLISTHESIS 06/28/2018 ARETHA ARZATE GROUP BILLING COORDINATOR Ot 611.71 MASTODYNIA 06/28/2018 ARETHA ARZATE GROUP BILLING COORDINATOR Ot 611.79 SYMPTOMS IN BREAST NEC 06/28/2018 CADEN QUICK MD Ot 397.0 TRICUSPID VALVE DISEASE 06/28/2018 CADEN QUICK MD Ot 424.0 MITRAL VALVE DISORDER 06/28/2018 CADEN QUICK MD Ot 786.09 RESPIRATORY ABNORM NEC 06/28/2018 CADEN QUICK MD Ot 786.50 CHEST PAIN NOS 06/28/2018 CADEN QUICK MD Ot 786.09 RESPIRATORY ABNORM NEC 06/28/2018 CADEN QUICK MD Ot 786.50 CHEST PAIN NOS 06/28/2018 ANOOP MIRANDA DO Ot V54.16 AFTERCARE HEALING TRAUMATIC FX LOWER LEG 06/28/2018 STACY LOWE Ot V76.12 OTH SCREEN MAMMO-MALIGN NEOPLASM OF TEREZA 06/28/2018 PAULINA COLLINS, LADONNA Ot V72.84 EXAM PRE-OPERATIVE NOS 06/28/2018 Ot 715.91 OSTEOARTHROS NOS-SHLDER 06/28/2018 Ot 715.31 LOC OSTEOARTH NOS-SHLDER 06/28/2018 CAROLINA COLLINS, LEANDRO Reyes Ot V76.12 OTH SCREEN MAMMO-MALIGN NEOPLASM OF TEREZA 06/28/2018 BILLY CARO APRN Ot R06.02 SHORTNESS OF BREATH 06/28/2018 STACY LOWE Ot 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, THORACIC REGION 06/28/2018 STACY LOWE Ot M47.896 OTHER SPONDYLOSIS, LUMBAR REGION 06/28/2018 CAROLINA COLLINS, LEANDRO Reyes Ot M41.9 SCOLIOSIS, UNSPECIFIED 06/28/2018 CAROLINA COLLINS, LEANDRO Reyes Ot 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, THORACIC REGION 06/28/2018 ENID DRUMMOND HEATHER Zac Ot M19.011 PRIMARY OSTEOARTHRITIS, RIGHT SHOULDER 06/28/2018 ENID DO HEATHER Zac Ot M75.101 UNSP ROTATR-CUFF TEAR/RUPTR OF RIGHT UNA 06/28/2018 HEATHER ROSSI DO Ot M19.011 PRIMARY OSTEOARTHRITIS, RIGHT SHOULDER 06/28/2018 ENID DRUMMOND HEATHER Zac Ot Z01.811 ENCOUNTER FOR PREPROCEDURAL RESPIRATORY 06/28/2018 ENID DRUMMOND HEATHER Zac Ot Z01.812 ENCOUNTER FOR PREPROCEDURAL LABORATORY E 06/28/2018 HEATHER ROSSI DO Ot Z11.2 ENCOUNTER FOR SCREENING FOR OTHER BACTER 06/28/2018 ENID DRUMMOND HEATHER Zac Ot M79.604 PAIN IN RIGHT LEG 06/28/2018 HEATHER ROSSI DO Ot R22.41 LOCALIZED SWELLING, MASS AND LUMP, RIGHT 06/28/2018 ABDELRAHMAN COLLINS, CADEN Guerrero Ot E78.2 MIXED HYPERLIPIDEMIA 06/28/2018 CADEN QUICK MD Ot I10 ESSENTIAL (PRIMARY) HYPERTENSION 06/28/2018 ABDELRAHMAN COLLINS, CADEN Guerrero Ot R06.00 DYSPNEA, UNSPECIFIED 06/28/2018 CADEN QUICK MD Ot R09.89 OTH SYMPTOMS AND SIGNS INVOLVING THE CIR 06/28/2018 ENID DRUMMOND HEATHER Frank Ot M25.511 PAIN IN RIGHT SHOULDER 06/28/2018 LIZETH COLLINS, MARK Oneill Ot R10.12 LEFT UPPER QUADRANT PAIN 06/28/2018 LIZETH COLLINS, MARK Oneill Ot R10.13 EPIGASTRIC PAIN 06/28/2018 LIZETH COLLINS, MARK Oneill Ot R13.10 DYSPHAGIA, UNSPECIFIED 06/28/2018 LIZETH COLLINS, MARK Oneill Ot Z01.818 ENCOUNTER FOR OTHER PREPROCEDURAL EXAMIN 06/28/2018 LIZETH COLLINS, MARK Oneill Ot Z86.010 PERSONAL HISTORY OF COLONIC POLYPS 06/28/2018 ENID DRUMMOND HEATHER Frank Ot M25.512 PAIN IN LEFT SHOULDER 06/28/2018 ENID DRUMMOND HEATHER Frank Ot M47.892 OTHER SPONDYLOSIS, CERVICAL REGION 06/28/2018 ENID DRUMMOND HEATHER Frank Ot M50.30 OTHER CERVICAL DISC DEGENERATION, UNSP C 06/29/2018 SHAVONNE COLLINS, AIRAM Chandra Ot E11.9 TYPE 2 DIABETES MELLITUS WITHOUT COMPLIC 06/29/2018 SHAVONNE COLLINS, AIRAM Chandra Ot E78.00 PURE HYPERCHOLESTEROLEMIA, UNSPECIFIED 06/29/2018 AIRAM MARVIN MD Ot F32.9 MAJOR DEPRESSIVE DISORDER, SINGLE EPISOD 06/29/2018 AIRAM MARVIN MD, Ot F41.9 ANXIETY DISORDER, UNSPECIFIED 06/29/2018 AIRAM MARVIN MD Ot G47.30 SLEEP APNEA, UNSPECIFIED 06/29/2018 AIRAM MARVIN MD Ot J44.9 CHRONIC OBSTRUCTIVE PULMONARY DISEASE, U 06/29/2018 AIRAM MARVIN MD Ot K21.9 GASTRO-ESOPHAGEAL REFLUX DISEASE WITHOUT 06/29/2018 SHAVONNE COLLINS, AIRAM Chandra Ot M25.532 PAIN IN LEFT WRIST 06/29/2018 AIRAM MARVIN MD Ot M25.552 PAIN IN LEFT HIP 06/29/2018 AIRAM MARVIN MD Ot R40.2142 COMA SCALE, EYES OPEN, SPONTANEOUS, EMR 06/29/2018 AIRAM MARVIN MD Ot R40.2252 COMA SCALE, BEST VERBAL RESPONSE, ORIENT 06/29/2018 AIRAM MARVIN MD, Ot R40.2362 COMA SCALE, BEST MOTOR RESPONSE, OBEYS C 06/29/2018 AIRAM MARVIN MD, Ot S69.92XA UNSP INJURY OF LEFT WRIST, HAND AND FING 06/29/2018 AIRAM MARVIN MD, Ot W01.0XXA FALL SAME LEV FROM SLIP/TRIP W/O STRIKE 06/29/2018 AIRAM MARVIN MD, Ot Z80.0 FAMILY HISTORY OF MALIGNANT NEOPLASM OF 06/29/2018 AIRAM MARVIN MD, Ot Z82.49 FAMILY HX OF ISCHEM HEART DIS AND OTH DI 06/29/2018 AIRAM MARVIN MD, Ot Z85.828 PERSONAL HISTORY OF OTHER MALIGNANT NEOP 06/29/2018 AIRAM MARVIN MD, Ot Z86.73 PRSNL HX OF TIA (TIA), AND CEREB INFRC W 06/29/2018 AIRAM MARVIN MD, Ot Z87.19 PERSONAL HISTORY OF OTHER DISEASES OF TH 06/29/2018 AIRAM MARVIN MD, Ot Z87.891 PERSONAL HISTORY OF NICOTINE DEPENDENCE 06/29/2018 AIRAM MARVIN MD, Ot Z88.0 ALLERGY STATUS TO PENICILLIN 06/29/2018 AIRAM MARVIN MD, Ot Z88.8 ALLERGY STATUS TO OT DRUG/MEDS/BIOL SUB 06/29/2018 AIRAM MARVIN MD, Ot Z90.710 ACQUIRED ABSENCE OF BOTH CERVIX AND UTER 06/29/2018 AIRAM MARVIN MD Ot Z96.653 PRESENCE OF ARTIFICIAL KNEE JOINT, BILAT 06/29/2018 AIRAM MARVIN MD, Ot Z98.84 BARIATRIC SURGERY STATUS 07/06/2018 HEATHER ROSSI DO Ot M25.512 PAIN IN LEFT SHOULDER 07/06/2018 HEATHER ROSSI DO, Ot M47.892 OTHER SPONDYLOSIS, CERVICAL REGION 07/06/2018 HEATHER ROSSI DO, Ot M50.30 OTHER CERVICAL DISC DEGENERATION, UNSP C 07/07/2018 KATHIA ELLIS MD, Ot E78.5 HYPERLIPIDEMIA, UNSPECIFIED 07/07/2018 CALEB MD, KATHIA N Ot F32.9 MAJOR DEPRESSIVE DISORDER, SINGLE EPISOD 07/07/2018 KATHIA ELLIS MD Ot F41.9 ANXIETY DISORDER, UNSPECIFIED 07/07/2018 KATHIA ELLIS MD Ot G89.29 OTHER CHRONIC PAIN 07/07/2018 KATHIA ELLIS MD Ot J44.1 CHRONIC OBSTRUCTIVE PULMONARY DISEASE W 07/07/2018 KATHIA ELLIS MD Ot K21.9 GASTRO-ESOPHAGEAL REFLUX DISEASE WITHOUT 07/07/2018 KATHIA ELLIS MD Ot M54.9 DORSALGIA, UNSPECIFIED 07/07/2018 KATHIA ELLIS MD Ot Z80.8 FAMILY HISTORY OF MALIGNANT NEOPLASM OF 07/07/2018 KATHIA ELLIS MD Ot Z87.891 PERSONAL HISTORY OF NICOTINE DEPENDENCE 07/07/2018 KATHIA ELLIS MD Ot 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 07/07/2018 KATHIA ELLIS MD Ot Z96.612 PRESENCE OF LEFT ARTIFICIAL SHOULDER LORAINE 07/07/2018 KATHIA ELLIS MD Ot E78.5 HYPERLIPIDEMIA, UNSPECIFIED 07/07/2018 KATHIA ELLIS MD Ot F32.9 MAJOR DEPRESSIVE DISORDER, SINGLE EPISOD 07/07/2018 KATHIA ELLIS MD Ot F41.9 ANXIETY DISORDER, UNSPECIFIED 07/07/2018 KATHIA ELLIS MD Ot G89.29 OTHER CHRONIC PAIN 07/07/2018 KATHIA ELLIS MD Ot J44.1 CHRONIC OBSTRUCTIVE PULMONARY DISEASE W 07/07/2018 KATHIA ELLIS MD Ot K21.9 GASTRO-ESOPHAGEAL REFLUX DISEASE WITHOUT 07/07/2018 KATHIA ELLIS MD Ot M54.9 DORSALGIA, UNSPECIFIED 07/07/2018 KATHIA ELLIS MD Ot Z87.891 PERSONAL HISTORY OF NICOTINE DEPENDENCE 07/07/2018 KATHIA ELLIS MD Ot 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 07/07/2018 KATHIA ELLIS MD Ot Z96.612 PRESENCE OF LEFT ARTIFICIAL SHOULDER LORAINE 07/17/2018 HEATHER ROSSI DO Ot M25.512 PAIN IN LEFT SHOULDER 07/17/2018 HEATHER ROSSI DO Ot M47.892 OTHER SPONDYLOSIS, CERVICAL REGION 07/17/2018 ENID DO, HEATHER F Ot M50.30 OTHER CERVICAL DISC DEGENERATION, UNSP C 07/23/2018 ENID DO, HEATHER F Ot M25.512 PAIN IN LEFT SHOULDER 07/23/2018 ENID DO, HEATHER F Ot M47.892 OTHER SPONDYLOSIS, CERVICAL REGION 07/23/2018 ENID DO, HEATHER F Ot M50.30 OTHER CERVICAL DISC DEGENERATION, UNSP C 07/23/2018 ENID DO, HEATHER F Ot M25.512 PAIN IN LEFT SHOULDER 07/23/2018 ENID DO, HEATHER F Ot M47.892 OTHER SPONDYLOSIS, CERVICAL REGION 07/23/2018 ENID DO, HEATHER F Ot M50.30 OTHER CERVICAL DISC DEGENERATION, UNSP C 07/30/2018 RACHAEL COLLINS, NEERU Frank Ot Z12.31 ENCNTR SCREEN MAMMOGRAM FOR MALIGNANT NE 08/20/2018 NEERU CANO MD Ot Z12.31 ENCNTR SCREEN MAMMOGRAM FOR MALIGNANT NE 08/20/2018 NEERU CANO MD Ot Z12.31 ENCNTR SCREEN MAMMOGRAM FOR MALIGNANT NE 09/04/2018 NEERU CANO MD Ot Z12.31 ENCNTR SCREEN MAMMOGRAM FOR MALIGNANT NE 10/03/2018 STACY LOWE GROUP BILLING COORDINATOR Ot 719.47 JOINT PAIN-ANKLE 10/03/2018 STACY LOWE GROUP BILLING COORDINATOR Ot 722.52 LUMB/LUMBOSAC DISC DEGEN 10/03/2018 STACY LOWE GROUP BILLING COORDINATOR Ot 736.70 ACQ ANKLE-FOOT DEF NOS 10/03/2018 STACY LOWE GROUP BILLING COORDINATOR Ot 737.30 IDIOPATHIC SCOLIOSIS 10/03/2018 STACY LOWE GROUP BILLING COORDINATOR Ot 756.12 SPONDYLOLISTHESIS 10/03/2018 ANOOP MIRANDA DO Ot V54.16 AFTERCARE HEALING TRAUMATIC FX LOWER LEG 10/03/2018 STACY LOWE GROUP BILLING COORDINATOR Ot V76.12 OT SCREEN MAMMO-MALIGN NEOPLASM OF TEREZA 10/03/2018 PAULINA COLLINS, LADONNA Ot V72.84 EXAM PRE-OPERATIVE NOS 10/03/2018 Ot 715.91 OSTEOARTHROS NOS-SHLDER 10/03/2018 Ot 715.31 LOC OSTEOARTH NOS-SHLDER 10/03/2018 CAROLINA COLLINS, LEANDRO Reyes Ot V76.12 OTH SCREEN MAMMO-MALIGN NEOPLASM OF TEREZA 10/03/2018 VANIABILLY PERALTA NELLIE Ot R06.02 SHORTNESS OF BREATH 10/03/2018 STACY LOWE Ot 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, THORACIC REGION 10/03/2018 STACY LOWE Ot M47.896 OTHER SPONDYLOSIS, LUMBAR REGION 10/03/2018 CAROLINA COLLINS, LEANDRO Reyes Ot M41.9 SCOLIOSIS, UNSPECIFIED 10/03/2018 CAROLINA COLLINS, LEANDRO Reyes Ot 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, THORACIC REGION 10/03/2018 ENID DO, HEATHER Frank Ot M19.011 PRIMARY OSTEOARTHRITIS, RIGHT SHOULDER 10/03/2018 ENID DRUMMOND HEATHER Frank Ot M75.101 UNSP ROTATR-CUFF TEAR/RUPTR OF RIGHT UNA 10/03/2018 ENID DRUMMOND HEATHER Frank Ot M19.011 PRIMARY OSTEOARTHRITIS, RIGHT SHOULDER 10/03/2018 ENID DO, HEATHER Frank Ot Z01.811 ENCOUNTER FOR PREPROCEDURAL RESPIRATORY 10/03/2018 ENID DRUMMOND HEATHER Frank Ot Z01.812 ENCOUNTER FOR PREPROCEDURAL LABORATORY E 10/03/2018 ENID DRUMMOND HEATHER Frank Ot Z11.2 ENCOUNTER FOR SCREENING FOR OTHER BACTER 10/03/2018 ENID DO, HEATHER Frank Ot M79.604 PAIN IN RIGHT LEG 10/03/2018 ENDI DRUMMOND HEATHER Frank Ot R22.41 LOCALIZED SWELLING, MASS AND LUMP, RIGHT 10/03/2018 ABDELRAHMAN COLLINS, CADEN Guerrero Ot E78.2 MIXED HYPERLIPIDEMIA 10/03/2018 ABDELRAHMAN COLLINS, CADEN Guerrero Ot I10 ESSENTIAL (PRIMARY) HYPERTENSION 10/03/2018 CAEDN QUICK MD Ot R06.00 DYSPNEA, UNSPECIFIED 10/03/2018 CADEN QUICK MD Ot R09.89 OTH SYMPTOMS AND SIGNS INVOLVING THE CIR 10/03/2018 ENID DRUMMOND HEATHER Frank Ot M25.511 PAIN IN RIGHT SHOULDER 10/03/2018 LIZETH COLLINS, MARK Oneill Ot R10.12 LEFT UPPER QUADRANT PAIN 10/03/2018 LIZETH COLLINS, MARK Oneill Ot R10.13 EPIGASTRIC PAIN 10/03/2018 LIZETH COLLINS, MARK Oneill Ot R13.10 DYSPHAGIA, UNSPECIFIED 10/03/2018 MARK STANLEY MD Ot Z01.818 ENCOUNTER FOR OTHER PREPROCEDURAL EXAMIN 10/03/2018 LIZETH COLLINS, MARK Oneill Ot Z86.010 PERSONAL HISTORY OF COLONIC POLYPS 10/03/2018 NEERU CANO MD Ot Z12.31 ENCNTR SCREEN MAMMOGRAM FOR MALIGNANT NE 10/12/2018 NEERU CANO MD, Ot J44.9 CHRONIC OBSTRUCTIVE PULMONARY DISEASE, U 10/16/2018 NEERU CANO MD, Ot J44.9 CHRONIC OBSTRUCTIVE PULMONARY DISEASE, U 10/31/2018 NEERU CANO MD, Ot J44.9 CHRONIC OBSTRUCTIVE PULMONARY DISEASE, U Procedures Code Description [place] [address] ROUTINE VENIPUNCTURE 10/29/2012 93696 XRAY FOOT RIGHT COMP MIN 3 VIEWS 10/29/2012 Podiatry Tisha Marley 10/29/2012 04903 UA LONG DIP 10/29/2012 84865 URINE DRUG SCREEN (IN-HOUSE ) 10/29/2012 47665 CBC 10/29/2012 47644 CRP 10/30/2012 KEV COMBS 12/18/2012 57440 JOINT INJECTION- INTERMEDIATE JOINT 02/07/2013 86175 ROUTINE VENIPUNCTURE 02/25/2013 01075 A1C (IN-HOUSE) 02/25/2013 53362 CMP 02/25/2013 68892 LIPID PANEL 02/25/2013 [id number] GFR CALC (RESULT ONLY) 02/25/2013 69059 TSH 02/25/2013 81754 MAMMOGRAM DX, ROSITA 03/11/2013 13896 URINE DRUG SCREEN (IN-HOUSE ) 07/03/2013 G0008 FLU ADMINISTRATION ( MEDICARE ONLY) 07/03/2013 [id number] REPLACEMENT OF L SHOULDER JT WITH SYNTH 12/08/2015 Results Test Result Range Complete blood count [...] plasma albumin measurement (mass/volume) 3.2 g/dL 3.2-4.5 Automated blood complete blood count (hemogram) panel - 12/03/17 04:40 Blood leukocytes automated count (number/volume) 6.9 10*3/uL 4.3-11.0 Blood erythrocytes automated count (number/volume) 3.29 10*6/uL 4.35-5.85 Venous blood hemoglobin measurement (mass/volume) 10.4 g/dL 11.5-16.0 Blood hematocrit (volume fraction) 32 % 35-52 Automated erythrocyte mean corpuscular volume 99 [foz_us] 80-99 Automated erythrocyte mean corpuscular hemoglobin (mass per erythrocyte) 32 pg 25-34 Automated erythrocyte mean corpuscular hemoglobin concentration measurement ( mass/volume) 32 g/dL 32-36 Automated erythrocyte distribution width ratio 14.1 % 10.0-14.5 Automated blood platelet count (count/volume) 223 10*3/uL 130-400 Automated blood platelet mean volume measurement 10.7 [foz_us] 7.4-10.4 Automated blood complete blood count (hemogram) panel - 12/04/17 06:01 Blood leukocytes automated count (number/volume) 5.2 10*3/uL 4.3-11.0 Blood erythrocytes automated count (number/volume) 3.25 10*6/uL 4.35-5.85 Venous blood hemoglobin measurement (mass/volume) 10.3 g/dL 11.5-16.0 Blood hematocrit (volume fraction) 32 % 35-52 Automated erythrocyte mean corpuscular volume 99 [foz_us] 80-99 Automated erythrocyte mean corpuscular hemoglobin (mass per erythrocyte) 32 pg 25-34 Automated erythrocyte mean corpuscular hemoglobin concentration measurement ( mass/volume) 32 g/dL 32-36 Automated erythrocyte distribution width ratio 14.1 % 10.0-14.5 Automated blood platelet count (count/volume) 243 10*3/uL 130-400 Automated blood platelet mean volume measurement 10.6 [foz_us] 7.4-10.4 Comprehensive metabolic panel - 12/04/17 06:01 Serum or plasma sodium measurement (moles/volume) 140 mmol/L 135-145 Serum or plasma potassium measurement (moles/volume) 3.3 mmol/L 3.6-5.0 Serum or plasma chloride measurement (moles/volume) 108 mmol/L 98-107 Carbon dioxide 23 mmol/L 21-32 Serum or plasma anion gap determination (moles/volume) 9 mmol/L 5-14 Serum or plasma urea nitrogen measurement (mass/volume) 7 mg/dL 7-18 Serum or plasma creatinine measurement (mass/volume) 0.71 mg/dL 0.60-1.30 Serum or plasma urea nitrogen/creatinine mass ratio 10 NRG Serum or plasma creatinine measurement with calculation of estimated glomerular filtration rate > NRG Serum or plasma glucose measurement (mass/volume) 88 mg/dL 70-105 Serum or plasma calcium measurement (mass/volume) 8.5 mg/dL 8.5-10.1 Serum or plasma total bilirubin measurement (mass/volume) 0.3 mg/dL 0.1-1.0 Serum or plasma alkaline phosphatase measurement (enzymatic activity/volume) 116 U/L 40-136 Serum or plasma aspartate aminotransferase measurement (enzymatic activity/ volume) 14 U/L 5-34 Serum or plasma alanine aminotransferase measurement (enzymatic activity/volume ) 11 U/L 0-55 Serum or plasma protein measurement (mass/volume) 5.4 g/dL 6.4-8.2 Serum or plasma albumin measurement (mass/volume) 2.9 g/dL 3.2-4.5 PANEL (PROFILE 1) - 04/05/18 10:03 Creatinine 145.7 mg/dL > or=20.0 pH 6.95 4.5 - 9.0 Oxidant NEGATIVE mcg/mL <200 Amphetamines NEGATIVE ng/mL <500 medMATCH Amphetamines CONSISTENT NRG Benzodiazepines NEGATIVE CONFIRMED ng/mL <100 Marijuana Metabolite NEGATIVE ng/mL <20 medMATCH Marijuana Metab CONSISTENT NRG Cocaine Metabolite NEGATIVE ng/mL <150 medMATCH Cocaine Metab CONSISTENT NRG Opiates POSITIVE ng/mL <100 Oxycodone POSITIVE ng/mL <100 COMMENT NRG Alphahydroxyalprazolam NEGATIVE ng/mL <25 medMATCH aOH alprazolam CONSISTENT NRG Alphahydroxymidazolam NEGATIVE ng/mL <50 medMATCH aOH midazolam CONSISTENT NRG Alphahydroxytriazolam NEGATIVE ng/mL <50 medMATCH aOH triazolam CONSISTENT NRG Aminoclonazepam NEGATIVE ng/mL <25 medMATCH Aminoclonazepam CONSISTENT NRG Hydroxyethylflurazepam NEGATIVE ng/mL <50 medMATCH OH,Et flurazepam CONSISTENT NRG Lorazepam NEGATIVE ng/mL <50 medMATCH Lorazepam CONSISTENT NRG Nordiazepam NEGATIVE ng/mL <50 medMATCH Nordiazepam CONSISTENT NRG Oxazepam NEGATIVE ng/mL <50 medMATCH Oxazepam CONSISTENT NRG Temazepam NEGATIVE ng/mL <50 medMATCH Temazepam CONSISTENT NRG Codeine NEGATIVE ng/mL <50 medMATCH Codeine CONSISTENT NRG Hydrocodone NEGATIVE ng/mL <50 medMATCH Hydrocodone CONSISTENT NRG Hydromorphone 114 ng/mL <50 medMATCH Hydromorphone INCONSISTENT NRG Morphine 2047 ng/mL <50 medMATCH Morphine INCONSISTENT NRG Norhydrocodone NEGATIVE ng/mL <50 medMATCH Norhydrocodone CONSISTENT NRG Prescribed Drug 2 Oxycodone NRG Noroxycodone 1060 ng/mL <50 medMATCH Noroxycodone CONSISTENT NRG Oxycodone 119 ng/mL <50 medMATCH Oxycodone CONSISTENT NRG Oxymorphone 215 ng/mL <50 medMATCH Oxymorphone CONSISTENT NRG Barbiturates NEGATIVE ng/mL <300 medMATCH Barbiturates CONSISTENT NRG Methadone Metabolite NEGATIVE ng/mL <100 medMATCH Methadone Metab CONSISTENT NRG Phencyclidine NEGATIVE ng/mL <25 medMATCH Phencyclidine CONSISTENT NRG CMP - 05/04/18 10:45 GLUCOSE 85 mg/dL 65-99 UREA NITROGEN (BUN) 13 mg/dL 7-25 CREATININE 0.75 mg/dL 0.60-0.93 eGFR NON-AFR. COLOMBIAN 80 mL/min/1.73m2 > OR=60 eGFR 93 mL/min/1.73m2 > OR=60 BUN/CREATININE RATIO NOT APPLICABLE (calc) 6-22 SODIUM 141 mmol/L 135-146 POTASSIUM 4.6 mmol/L 3.5-5.3 CHLORIDE 104 mmol/L 98-110 CARBON DIOXIDE 31 mmol/L 20-31 CALCIUM 8.7 mg/dL 8.6-10.4 PROTEIN, TOTAL 6.4 g/dL 6.1-8.1 ALBUMIN 3.4 g/dL 3.6-5.1 GLOBULIN 3.0 g/dL (calc) 1.9-3.7 ALBUMIN/GLOBULIN RATIO 1.1 (calc) 1.0-2.5 BILIRUBIN, TOTAL 0.4 mg/dL 0.2-1.2 ALKALINE PHOSPHATASE 141 U/L 33-130 AST 21 U/L 10-35 ALT 11 U/L 6-29 Complete blood count (CBC) with automated white blood cell (WBC) differential - 07/05/18 17:20 Blood leukocytes automated count (number/volume) 5.9 10*3/uL 4.3-11.0 Blood erythrocytes automated count (number/volume) 3.90 10*6/uL 4.35-5.85 Venous blood hemoglobin measurement (mass/volume) 11.4 g/dL 11.5-16.0 Blood hematocrit (volume fraction) 36 % 35-52 Automated erythrocyte mean corpuscular volume 93 [foz_us] 80-99 Automated erythrocyte mean corpuscular hemoglobin (mass per erythrocyte) 29 pg 25-34 Automated erythrocyte mean corpuscular hemoglobin concentration measurement ( mass/volume) 31 g/dL 32-36 Automated erythrocyte distribution width ratio 14.6 % 10.0-14.5 Automated blood platelet count (count/volume) 260 10*3/uL 130-400 Automated blood platelet mean volume measurement 9.3 [foz_us] 7.4-10.4 Automated blood neutrophils/100 leukocytes 59 % 42-75 Automated blood lymphocytes/100 leukocytes 30 % 12-44 Blood monocytes/100 leukocytes 10 % 0-12 Automated blood eosinophils/100 leukocytes 1 % 0-10 Automated blood basophils/100 leukocytes 0 % 0-10 Blood neutrophils automated count (number/volume) 3.5 10*3 1.8-7.8 Blood lymphocytes automated count (number/volume) 1.8 10*3 1.0-4.0 Blood monocytes automated count (number/volume) 0.6 10*3 0.0-1.0 Automated eosinophil count 0.1 10*3/uL 0.0-0.3 Automated blood basophil count (count/volume) 0.0 10*3/uL 0.0-0.1 Blood lactic acid measurement (moles/volume) - 07/05/18 17:20 Blood lactic acid measurement (moles/volume) 1.09 mmol/L 0.50-2.00 Comprehensive metabolic panel - 07/05/18 17:20 Serum or plasma sodium measurement (moles/volume) 138 mmol/L 135-145 Serum or plasma potassium measurement (moles/volume) 3.5 mmol/L 3.6-5.0 Serum or plasma chloride measurement (moles/volume) 105 mmol/L 98-107 Carbon dioxide 21 mmol/L 21-32 Serum or plasma anion gap determination (moles/volume) 12 mmol/L 5-14 Serum or plasma urea nitrogen measurement (mass/volume) 10 mg/dL 7-18 Serum or plasma creatinine measurement (mass/volume) 0.74 mg/dL 0.60-1.30 Serum or plasma urea nitrogen/creatinine mass ratio 14 NRG Serum or plasma creatinine measurement with calculation of estimated glomerular filtration rate > NRG Serum or plasma glucose measurement (mass/volume) 98 mg/dL 70-105 Serum or plasma calcium measurement (mass/volume) 8.3 mg/dL 8.5-10.1 Serum or plasma total bilirubin measurement (mass/volume) 0.3 mg/dL 0.1-1.0 Serum or plasma alkaline phosphatase measurement (enzymatic activity/volume) 108 U/L 40-136 Serum or plasma aspartate aminotransferase measurement (enzymatic activity/ volume) 19 U/L 5-34 Serum or plasma alanine aminotransferase measurement (enzymatic activity/volume ) 13 U/L 0-55 Serum or plasma protein measurement (mass/volume) 5.9 g/dL 6.4-8.2 Serum or plasma albumin measurement (mass/volume) 3.2 g/dL 3.2-4.5 CALCIUM CORRECTED 8.9 mg/dL 8.5-10.1 Serum or plasma lithium measurement (moles/volume) - 07/05/18 17:20 BNP level 24.4 pg/mL <100.0 Bacterial blood culture - 07/05/18 17:20 Bacterial blood culture NG NRG Bacterial blood culture - 07/05/18 17:25 Bacterial blood culture NG NRG CULTURE, URINE - 08/15/18 13:47 CULTURE, URINE, ROUTINE SEE NOTE NRG Encounters ACCT No. Visit Date/Time Discharge Status Pt. Type Provider Facility Loc./Unit Complaint [id number] 07/03/2013 10:48:00 07/03/2013 23:59:59 CLS Outpatient ARETHA ARZATE APRN [id number] 07/03/2013 10:48:00 07/03/2013 23:59:59 CLS Outpatient ARETHA ARZATE APRN [id number] 01/17/2013 12:22:00 01/17/2013 23:59:59 CLS Outpatient [id number] 12/13/2012 12:05:00 12/13/2012 23:59:59 CLS Outpatient GABRIELLE PANCHAL DO [id number] 11/29/2012 10:17:00 11/29/2012 23:59:59 CLS Outpatient [id number] 10/29/2012 12:20:00 10/29/2012 23:59:59 CLS Outpatient ARETHA ARZATE APRN [id number] 09/27/2012 09:04:00 09/27/2012 23:59:59 CLS Outpatient ROSITA PACHECO MD 08/15/2012 10:23:00 08/15/2012 23:59:59 CLS Outpatient ARETHA ARZATE APRN [id number] 03/29/2013 13:29:00 Document Registration [id number] 03/07/2013 12:28:00 Document Registration [id number] 02/25/2013 14:10:00 Document Registration [id number] 02/07/2013 13:42:00 Document Registration [id number] 11/19/2018 05:54:00 11/19/2018 15:05:00 DIS Outpatient LADONNA GALLARDO MD [facility] PREOP EGD [id number] 11/06/2018 15:59:00 11/06/2018 23:59:59 CLS Preadmit BILL LOZOYA [facility] CARD CAROTID ARTERY STENOSIS [id number] 11/06/2018 15:57:00 11/06/2018 23:59:59 CLS Preadmit BILL LOZOYA [facility] CARD CAROTID ARTERY STENOSIS [id number] 09/25/2018 14:32:00 09/25/2018 23:59:59 CLS Preadmit NEERU CANO MD [facility] RAD LUMBAR RADICULOPATHY M54.16 [id number] 08/28/2018 13:00:00 08/28/2018 23:59:59 CLS Outpatient NEERU CANO MD [facility] RT COPD [id number] 08/28/2018 12:39:00 08/28/2018 23:59:59 CLS Preadmit NEERU CANO MD [facility] RAD CHRONIC OBSTRUCTIVE PULMONARY DISEASE [id number] 08/07/2018 08:20:00 08/07/2018 23:59:59 CLS Outpatient NEERU CANO MD [facility] RAD BREAST CANCER SCREENING [id number] 07/24/2018 13:00:00 07/24/2018 13:00:00 CAN Preadmit HEATHER ROSSI DO [facility] REHAB LT SHOULDER PAIN CERVICAL SPONDYLOSIS CERVICAL DDD [id number] 07/05/2018 13:03:00 07/23/2018 13:24:00 DIS Outpatient HEATHER ROSSI DO [facility] REHAB LT SHOULDER PAIN CERVICAL SPONDYLOSIS CERVICAL DDD [id number] 07/05/2018 16:25:00 07/07/2018 14:30:00 DIS Inpatient KATHIA ELLIS MD [facility] 4TH HYPOXIA [id number] 06/27/2018 22:48:00 06/28/2018 01:43:00 DIS Emergency BRUEGGEMANN MD, AIRAM Chandra [facility] ER FALL/L SIDE PAIN [id number] 04/21/2018 16:00:00 04/21/2018 18:15:00 DIS Emergency JH BARAHONA APRN [facility] ER HIP PAIN,FALL,NECK PAIN, LOSS OF CONSCIOUSNESS [id number] 01/05/2018 07:50:00 01/05/2018 12:05:00 DIS Outpatient MARK STANLEY MD [facility] ENDO DYSPHAGIA/EPIGASTRIC LUQ PAIN/HX OF COLON POLYP [id number] 01/01/2018 05:36:00 01/01/2018 15:34:00 DIS Outpatient MARK STANLEY MD [facility] PREOP COLONOSCOPY/EGD [id number] 12/01/2017 18:00:00 12/04/2017 15:00:00 DIS Inpatient KATHIA ELLIS MD [facility] 4TH LLL PNA [id number] 11/21/2017 05:49:00 11/21/2017 23:59:59 CLS Outpatient MARK STANLEY MD [facility] PREOP COLONOSCOPY/EGD [id number] 06/30/2016 12:48:00 06/30/2016 23:59:59 CLS Outpatient HEATHER ROSSI DO [facility] RAD RT SHOULDER PAIN [id number] 05/30/2016 12:59:00 05/30/2016 15:27:00 DIS Emergency FRANCY VERDIN DO [facility] ER RIGHT SHOULDER PAIN [id number] 03/09/2016 12:28:00 04/04/2016 11:55:00 DIS Outpatient HEATHER ROSSI DO [facility] REHAB SHOULDER PAIN [id number] 02/15/2016 13:46:00 02/15/2016 23:59:59 CLS Outpatient CADEN QUICK MD [facility] CARD DYSPNEA ON EXERTION,HTN, HLP,CAROTID ARTERY BRUIT [id number] 01/27/2016 11:28:00 01/27/2016 23:59:59 CLS Outpatient HEATHER ROSSI DO [facility] RAD RIGHT LEG PAIN AND SWELLING [id number] 12/25/2015 16:17:00 12/29/2015 11:45:00 DIS Inpatient LEANDRO FIGUEROA MD [facility] 4TH ACUTE GASTROINTERITIS, DEHYDRATION [id number] 12/08/2015 05:46:00 12/10/2015 11:00:00 DIS Inpatient HEATHER ROSSI DO [facility] 4TH RIGHT SHOULDER OSTEOARTHRITIS [id number] 11/25/2015 10:04:00 11/25/2015 23:59:59 CLS Outpatient HEATHER ROSSI DO [facility] PREOP RIGHT SHOULDER OSTEOARTHRITIS [id number] 11/17/2015 17:35:00 11/17/2015 19:14:00 DIS Emergency AIRAM MARVIN MD [facility] ER RT ARM PAIN,FOOT PAIN [id number] 10/21/2015 14:49:00 10/21/2015 18:54:00 DIS Emergency MATT HIDALGO MD [facility] ER POSS CVA [id number] 10/06/2015 09:33:00 10/06/2015 23:59:59 CLS Outpatient HEATHER ROSSI DO [facility] RAD RTC TEAR RT SHOULDER [id number] 10/01/2015 06:51:00 10/01/2015 23:59:59 CLS Outpatient CAROLINA COLLINS, LEANDRO Reyes [facility] RAD BACK PAIN POST FALL [id number] 09/11/2015 13:44:00 09/11/2015 23:59:59 CLS Outpatient STACY LOWE [facility] RAD THORACIC AND LUMBAR BACK PAIN [id number] 09/11/2015 13:37:00 09/11/2015 23:59:59 CLS Outpatient BILLY CARO APRN [facility] RT SOB [id number] 08/04/2015 14:51:00 08/05/2015 17:43:00 DIS Inpatient ELIO LEA DO [facility] ICU HEAD INJURY W/ CONCUSSION INTRACTABLE NAUSEA [id number] 04/28/2015 12:39:00 05/11/2015 11:47:00 DIS Outpatient HEATHER ROSSI DO [facility] REHAB S/P L TOTAL SHOULDER [id number] 04/27/2015 09:47:00 04/27/2015 23:59:59 CLS Outpatient LEANDRO FIGUEROA MD [facility] RAD SCREENING [id number] 10/14/2014 12:52:00 10/14/2014 16:09:00 DIS Emergency FRANCY VERDIN DO [facility] ER POSSIBLE STROKE [id number] 08/11/2014 09:44:00 09/16/2014 15:11:00 DIS Outpatient STACY LOWE [facility] REHAB R ANKLE AND BACK PAIN [id number] 08/06/2014 07:52:00 08/06/2014 12:05:00 DIS Outpatient LADONNA GALLARDO MD [facility] SDC ABD PAIN RIGHT LOWER QUADRANT [id number] 07/31/2014 07:22:00 07/31/2014 23:59:59 CLS Outpatient LADONNA GALLARDO MD [facility] PREOP ABD PAIN RIGHT LOWER QUADRANT [id number] 05/09/2014 11:01:00 05/09/2014 23:59:59 CLS Outpatient STACY LOWE [facility] RAD BACK PAIN,R ANKLE PAIN [id number] 04/17/2014 14:28:00 04/17/2014 23:59:59 CLS Outpatient STACY LOWE [facility] RAD SCREENING [id number] 04/11/2014 17:46:00 04/11/2014 20:21:00 DIS Emergency FRANCY VERDIN DO [facility] ER FELL 04/09/14 [id number] 03/13/2014 13:52:00 03/15/2014 12:00:00 DIS Inpatient ANOOP MIRANDA DO [facility] CSD CHEST PAIN [id number] 02/11/2014 13:48:00 02/11/2014 23:59:59 CLS Outpatient [id number] 12/19/2013 13:10:00 12/19/2013 23:59:59 CLS Outpatient [id number] 08/09/2013 11:36:00 08/09/2013 23:59:59 CLS Outpatient RUBEN DRUMMOND ANOOP Eric [facility] RAD HX OF R ANKLE FX,NAUN REMOVAL [id number] 07/01/2013 05:27:00 07/01/2013 09:10:00 DIS Emergency MATT HIDALGO MD [facility] ER FALL [id number] 04/22/2013 12:55:00 05/01/2013 14:42:00 DIS Outpatient KEV PEREZ GROUP BILLING COORDINATOR [facility] REHAB L SHOULDER IMPINGEMENT/ R ELBOW LATERAL EPICONDYLIT [id number] 03/19/2013 12:02:00 03/19/2013 23:59:59 CLS Outpatient CADEN QUICK MD [facility] RAD CP,DYSPNEA [id number] 03/13/2013 13:10:00 03/13/2013 23:59:59 CLS Outpatient CADEN QUCIK MD [facility] CARD CP,DYSPNEA [id number] 02/27/2013 14:40:00 02/27/2013 23:59:59 CLS Outpatient ARETHA ARZATE [facility] RAD SCREENING [id number] 11/21/2018 11:15:00 PEN Preadmit LADONNA GALLARDO MD [facility] ENDO ABD PAIN/N V/REFLUX [id number] 02/18/2015 09:30:00 Document Registration [id number] 02/18/2015 09:30:00 Document Registration [id number] 12/31/2014 09:04:00 Document Registration [id number] 12/15/2014 15:26:00 Document Registration [id number] 12/19/2012 12:07:00 Document Registration [id number] 12/05/2012 00:17:00 Document Registration [id number] 09/15/2012 10:56:00 Document Registration [id number] 01/18/2012 11:37:00 Document Registration [id number] 11/01/2011 11:28:00 Document Registration [id number] 10/20/2011 15:54:00 Document Registration [id number] 09/05/2011 10:22:00 Document Registration [id number] 07/06/2011 19:52:00 Document Registration [id number] 06/08/2011 15:24:00 Document Registration [id number] 03/27/2011 15:09:00 Document Registration [id number] 03/23/2011 16:19:00 Document Registration [id number] 12/22/2010 09:11:00 Document Registration [id number] 09/01/2010 10:32:00 Document Registration [id number] 05/03/2010 15:07:00 Document Registration [id number] 04/21/2010 14:07:00 Document Registration [id number] 08/04/2015 10:42:13 ACT Document Registration [id number] 09/19/2018 08:20:00 09/19/2018 23:59:59 [facility] RACHAEL COLLINS, NE[facility] [id number] 08/15/2018 11:50:00 Document Registration [id number] 05/04/2018 10:20:00 Document Registration [id number] 04/05/2018 09:20:00 Document Registration
--- NOTE | 2018-11-21 10:18 | Conscious Sedation/ASA ---
Conscious Sedation Pre-Proced Time 10:15 ASA Score 2 For ASA 3 and 4: Consider anesthesia and medical clearance. Also, for patients with a history of failed moderate sedation consider anesthesia. Airway Lungs Heart ASA score ASA 1: a normal healthy patient ASA 2: a patient with a mild systemic disease (mid diabetes, controlled hypertension, obesity ASA 3: a patient with a severe systemic disease that limits activity (angina , COPD, prior Myocardial infarction) ASA 4: a patient with an incapacitating disease that is a constant threat to life (CHF, renal failure) ASA 5: a moribund patient not expected to survive 24 hrs. (ruptured aneurysm) ASA 6: a declared brain- patient whose organs are being harvested. For emergent operations, add the letter E after the classification Mallampati Classification Grade 2 Sedation Plan Analgesia, Amnesia, Plan communicated to team members, Discussed options with patient/fam, Discussed risks with patient/fam The patient is an appropriate candidate to undergo the planned procedure, sedation, and anesthesia. The patient immediately re-assessed prior to indication. LADONNA GALLARDO MD Nov 21, 2018 10:18
--- NOTE | 2018-11-21 10:18 | Progress Note-Pre Operative ---
Pre-Operative Progress Note H&P Reviewed The H&P was reviewed, patient examined and no changes noted. Date Seen by Provider: Nov 21, 2018 Time Seen by Provider: 10:15 Date H&P Reviewed: Nov 21, 2018 Time H&P Reviewed: 10:15 Pre-Operative Diagnosis: GERD LADONNA GALLARDO MD Nov 21, 2018 10:18
--- NOTE | 2018-11-21 10:21 | Discharge Inst-Surgical ---
D/C Lap Instructions-PAULINA Will call for Follow Up Activity as tolerated High Fiber Diet 25g or more per day Avoid Alcohol, Caffeine, Spicy Sorgho and Acid foods. Drink 64 fluid oz or more of fluids per day. Symptoms to Report: Fever over 101 degree F, Nausea/Vomiting If any problems/questions: Contact your physician or go to Emergency Room LADONNA GALLARDO MD Nov 21, 2018 10:21
[2018-11-21] MEDS ORDERED: morphine INJ 10 MG/ML 1ML (SYR OR VIAL) IV PRN (10:30)
[2018-11-21] MEDS ORDERED: HYDROcodone/APAP 5 MG/325 MG (LORTAB) TAB PO PRN (10:30)
[2018-11-21] MEDS ORDERED: ACETAMINOPHEN 325 MG TABLET PO PRN (10:30)
[2018-11-21] MEDS ORDERED: ONDANSETRON 4 MG/2 ML (SDV) Z0FRAN IV PRN (10:30)
[2018-11-21] MEDS ORDERED: LIDOCAINE JELLY 2% 6 ML SYRINGE ONE (11:24)
[2018-11-21] MEDS ORDERED: HURRICAINE EXT TUBE (BENZOCAINE) ONE (11:25)
[2018-11-21] MEDS ORDERED: MIDAZOLAM 2 MG/2 ML (VERSED) VIAL ONE ×4 (11:25)
[2018-11-21] MEDS ORDERED: fentaNYL INJECTION 100 MCG/2 ML AMP ONE (11:25)
[2018-11-21] MEDS ORDERED: proPOfol 200 MG/20 ML (DIPRIVAN) VIAL IV ONE (11:42)
[2018-11-21] MEDS ORDERED: LIDOCAINE JELLY 2% 6 ML SYRINGE TOP ONE (12:15)
--- NOTE | 2018-11-21 12:19 | Progress Note-Post Operative ---
Post-Operative Progess Note Surgeon (s)/Dispute Resolution Specialist (s) Surgeon LADONNA GALLARDO MD Dispute Resolution Specialist: none Pre-Operative Diagnosis GERD Post-Operative Diagnosis reflux esophagitis(stage 2), mild stricture gastro-J, marginal ulcer gastro-J, normal gerry limb. Procedure & Operative Findings Date of Procedure 11/21/18 Procedure Performed/Findings EGD with bx. Anesthesia Type minimal Estimated Blood Loss Estimated blood loss (mL): minimal Specimens/Packing Specimens Removed GE jxn, marginal ulcer LADONNA GALLARDO MD Nov 21, 2018 12:19
[2018-11-21 12:30] VITALS: BP 122/96
--- NOTE | 2018-11-21 12:32 | Anesthesia-General Post-Op ---
MAC Patient Condition Mental Status/LOC: Same as Preop Cardiovascular: Satisfactory Nausea/Vomiting: Absent Respiratory: Satisfactory Pain: Controlled Complications: Absent Post Op Complications Complications None Follow Up Care/Instructions Patient Instructions None needed. Anesthesiology Discharge Order Discharge Order Patient is doing well, no complaints, stable vital signs, no apparent adverse anesthesia problems. No complications reported per nursing. JAMISON SALINAS CRNA Nov 21, 2018 12:32
[2018-11-21 13:00] VITALS: BP 132/85
--- NOTE | 2018-11-21 16:56 | OPERATIVE REPORT ---
DATE OF SERVICE: 11/21/2018 ATTENDING PRIMARY CARE PHYSICIAN: Dr. Larios. PREOPERATIVE DIAGNOSES: 1. Persistent epigastric pain. 2. Gastroesophageal reflux disease. POSTOPERATIVE DIAGNOSES: 1. Reflux esophagitis stage II. 2. Intact gastric pouch. 3. Marginal ulceration with mild stricture. PROCEDURES: EGD with biopsy. SURGEON: Ladonna Gallardo MD ANESTHESIA: Monitored anesthesia care. ESTIMATED BLOOD LOSS: Minimal. FINDINGS: 1. Reflux esophagitis stage II, intact gastric pouch, status post Alfreda-en-Y gastric bypass. 2. Marginal ulceration of the gastrojejunostomy with mild stricture also identified in this region. The jejunal Alfreda limb appeared normal and widely patent. DISPOSITION: The patient tolerated the procedure well. INDICATIONS: The patient is a 73-year-old female with history of morbid obesity and medical comorbidities including hypertension, hypercholesterolemia as well as gastroesophageal reflux disease. She is status post Alfreda-en-Y gastric bypass and hiatal hernia repair in 2003 in [place], [place]. She reports that her initial weight was approximately 310 pounds and she is currently at approximately 169.8 pounds. She complains of persistent right-sided abdominal pain. She also does report reflux, which has worsened in the past year as well. She is on a number of different medications including aspirin, diclofenac as well as a number of different pain medications. DESCRIPTION OF PROCEDURE: The patient was brought to the endoscopy suite, laid in the left lateral decubitus position with head slightly elevated. After adequate IV pain and sedating medications and monitored anesthesia care, the mouthpiece was applied. Endoscope was placed in the mouth, visualizing the pharynx and hypopharyngeal region. Vocal cords, epiglottis and vallecula were identified and appeared to be normal. The endoscope was gently intubated in the esophageal opening and esophagus was insufflated. Endoscope was then advanced to the first, second and third portion of the esophagus. At the level of GE junction, a reflux esophagitis stage II was identified. There were no ulcers or strictures identified in this region. A biopsy was taken with forceps with visualization of good hemostasis. The endoscope was then easily advanced in the stomach visualizing the gastric pouch, which was intact. The gastrojejunostomy was identified and there was a marginal ulcer identified in this region as well as a mild stricture. There was an overlying fibrin clot with no active bleeding. A biopsy was taken at the border of the ulcer using forceps with visualization of good hemostasis. The endoscope was able to pass through this strictured area of gastrojejunal limb and advanced through the jejunal limb with no ulcerations identified as well as no distal obstructions. The endoscope was then slowly withdrawn while taking a second look and suctioning of residual air with no additional findings. The patient tolerated the procedure well. We will have her proceed with the necessary lifestyle and diet accommodation including small and more frequent meals, avoidance of eating at night as well as head elevation while lying supine. She also needs to avoid caffeinated beverages, spicy, greasy and acidic foods. If she can discontinue her diclofenac for now, that would be advantageous and we will have her continue with the proton pump inhibitor on a b.i.d. basis as well as adding Carafate 1 gram q.i.d. for the next two weeks and then on a p.r.n. basis. We will recommend a followup EGD in approximately 6 to 12 weeks. Job ID: [id number] DocumentID: [id number] Dictated Date: 11/21/2018 12:17:55 Clay Plant Treater Date: 11/21/2018 16:55:23 Dictated By: LADONNA GALLARDO MD
== END 2018-11-21 13:00 | disposition home or self-care (01) ==
LOC: ENDO 09:04
PROVIDERS: ATTEND Surgery
DX: K21.0 Gastro-esophageal reflux disease with esophagitis (principal); K25.9 Gastric ulcer, unspecified as acute or chronic, without hemorrhage or perforation; I10 Essential (primary) hypertension; E78.00 Pure hypercholesterolemia, unspecified; Z79.82 Long term (current) use of aspirin; Z79.899 Other long term (current) drug therapy; F41.9 Anxiety disorder, unspecified; F32.9 Major depressive disorder, single episode, unspecified; K44.9 Diaphragmatic hernia without obstruction or gangrene; I25.10 Atherosclerotic heart disease of native coronary artery without angina pectoris; Z96.653 Presence of artificial knee joint, bilateral; Z96.611 Presence of right artificial shoulder joint; Z96.612 Presence of left artificial shoulder joint; Z87.891 Personal history of nicotine dependence
CPT/HCPCS: 88305; 88342

== ENCOUNTER → 2018-12-03 | Outpatient (CLI) | payer MEDICARE ==
[~2018-12-03] MED LIST changes: +CATHETER FLUSH 10 ML SYR IV PRN; +REGADENOSON 0.4 MG/5 ML SYR (LEXISCAN) IV ONE
--- NOTE | 2018-12-04 00:20 | STRESS TEST ---
DATE OF SERVICE: 12/03/2018 LEXISCAN MYOVIEW STRESS TEST REPORT Baseline heart rate is 78. Baseline blood pressure 114/71. Baseline EKG sinus rhythm with no ischemic changes. In summary, the patient received 10.71 mCi of technetium-99 Myoview and the resting images were obtained. Then, the patient received 0.4 mg of Lexiscan followed by 32.3 mCi of technetium-99 Myoview. Throughout the test, there were no EKG changes. The resting and stress images were reviewed and compared in the short axis, horizontal long axis, and vertical long axis views. Review of the images showed small left ventricle with reversible ischemia involving the whole inferior wall, and inferoseptum; on the gated images, the left ventricle appeared to be normal size with mild hypokinesia noted diffusely. Calculated ejection fraction 50%. CONCLUSION: 1. The patient tolerated Lexiscan well. 2. Reversible ischemia involving the whole inferior wall and inferoseptum. 3. Small left ventricle with mild hypokinesia noted diffusely. Calculated ejection fraction 50%. Job ID: [id number] DocumentID: [id number] Dictated Date: 12/03/2018 18:08:52 Personal Companion Date: 12/04/2018 00:19:41 Dictated By: CADEN QUICK MD
== END ==
LOC: CARD 07:59
PROVIDERS: ATTEND Physician Assistant
DX: R07.9 Chest pain, unspecified (principal); R06.00 Dyspnea, unspecified; I10 Essential (primary) hypertension; E78.5 Hyperlipidemia, unspecified
CPT/HCPCS: 78452; 93017

== ENCOUNTER → 2018-12-06 | Outpatient (CLI) | payer MEDICARE ==
[~2018-12-06] MED LIST changes: -CATHETER FLUSH 10 ML SYR IV PRN; -REGADENOSON 0.4 MG/5 ML SYR (LEXISCAN) IV ONE
== END ==
LOC: CARD 09:51
PROVIDERS: ATTEND Physician Assistant
DX: I65.29 Occlusion and stenosis of unspecified carotid artery (principal); R07.9 Chest pain, unspecified; R06.09 Other forms of dyspnea; I10 Essential (primary) hypertension; E78.5 Hyperlipidemia, unspecified; I08.0 Rheumatic disorders of both mitral and aortic valves
CPT/HCPCS: 93306

== ENCOUNTER 2018-12-11 14:52 | Inpatient (IN) | payer MEDICARE ==
[~2018-12-11] VITALS: Ht 147.3 cm; Wt 75.4 kg
--- NOTE | 2018-12-11 14:58 | NUR ---
TAKEN TO ROOM 1
--- OUTSIDE RECORDS SUMMARY | 2018-12-11 14:58 | XMS REPORT | Clinical Summary ---
Author Author [facility] Organization [facility] Address Unknown Phone Unavailable Care Team Providers Care Box Attacher Name Role Phone No Pcp, Na PCP Unavailable Agustin Buitrago MD Unavailable Source Comments Some departments are not documenting in the electronic medical record. If you do not see the information that you expected, contact Release of Information in the Health Information Management department at [phone] for further assistance in locating additional records.[facility] Allergies Comments Active Allergy Reactions Severity [...] Taken Vital Sign Reading 11/25/2014 11:09 AM TIRE STRIPPER Blood Pressure 149/87 11/25/2014 11:09 AM TIRE STRIPPER Pulse 72 - Temperature - - Respiratory Rate - - Oxygen Saturation - - Inhaled Oxygen - Concentration 11/25/2014 11:09 AM TIRE STRIPPER Weight 88.9 kg (196 lb) 11/25/2014 11:09 AM TIRE STRIPPER Height 157.5 cm (5' 2") 11/25/2014 11:09 AM TIRE STRIPPER Body Mass Index 35.85 Plan of Treatment [...] MEDICARE xxxxxxxxxx Medicare PART A AND B [facility] AARP xxxxxxxxxxx PPO Advance Directives Patient has advance care planning documents on file. For more information, please contact: [facility] [address] [place] [address]
--- OUTSIDE RECORDS SUMMARY | 2018-12-11 15:13 | XMS REPORT | Continuity of Care Document ---
Author Author [facility] Address Unknown Phone Unavailable Allergies Active Description Code Type Severity Reaction Onset Reported/Identified Relationship to Patient Clinical Status Yes nalbuphine [id number] Drug Allergy Mild N/A 04/23/2009 Yes Nubain Drug Allergy N/A N/A 08/19/2010 Yes Penicillins Drug Allergy N/A N/A 08/19/2010 Yes Nubain Drug Allergy 08/19/2010 Yes Penicillins Drug Allergy 08/19/2010 Yes fentanyl Drug Allergy N/A N/A 10/25/2011 Yes fentanyl Drug Allergy 10/25/2011 Yes Penicillins [id number] Drug Allergy Mild PT DOES NOT REM 04/21/2018 Yes nalbuphine [id number] Drug Allergy Mild Pt has received 11/21/2018 Medications There is no data. Problems Date Dx Coded Attending Type Code Diagnosis Diagnosed By 09/21/1154 HEATHER ROSSI DO Ot M25.511 PAIN IN RIGHT SHOULDER 09/21/1323 HEATHER ROSSI DO Ot M25.512 PAIN IN LEFT SHOULDER 09/21/1323 HEATHER ROSSI DO Ot M47.892 OTHER SPONDYLOSIS, CERVICAL REGION 09/21/1323 [...] MD 724.2 LUMBAGO 08/19/2010 ARETHA ARZATE APRN 266.2 OTHER B-COMPLEX DEFICIENCIES 08/19/2010 HUEY FIELD ASSISTANT, ARETHA S 272.4 OTHER AND UNSPECIFIED HYPERLIPIDEMIA 08/19/2010 HUEY FIELD ASSISTANT, ARETHA S 338.29 OTHER CHRONIC PAIN 08/19/2010 HUEY FIELD ASSISTANT, ARETHA S 401.9 UNSPECIFIED ESSENTIAL HYPERTENSION 08/19/2010 HUEY FIELD ASSISTANT, ARETHA S 627.2 SYMPTOMATIC MENOPAUSAL OR FEMALE CLIMACTERIC STATES 08/19/2010 HUEY FIELD ASSISTANT, ARETHA S 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 08/19/2010 HUEY FIELD ASSISTANT, ARETHA S 724.2 LUMBAGO 08/19/2010 266.2 OTHER B- [...] ACTINIC KERATOSIS 08/19/2010 724.2 LUMBAGO 08/19/2010 HUEY FIELD ASSISTANT, ARETHA S 266.2 OTHER B-COMPLEX DEFICIENCIES 08/19/2010 HUEY FIELD ASSISTANT, ARETHA S 272.4 OTHER AND UNSPECIFIED HYPERLIPIDEMIA 08/19/2010 HUEY FIELD ASSISTANT, ARETHA S 338.29 OTHER CHRONIC PAIN 08/19/2010 HUEY FIELD ASSISTANT, ARETHA S 401.9 UNSPECIFIED ESSENTIAL HYPERTENSION 08/19/2010 HUEY FIELD ASSISTANT, ARETHA S 627.2 SYMPTOMATIC MENOPAUSAL OR FEMALE CLIMACTERIC STATES 08/19/2010 HUEY FIELD ASSISTANT, ARETHA S 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 08/19/2010 HUEY FIELD ASSISTANT, ARETHA S 724.2 LUMBAGO 08/19/2010 HUEY FIELD ASSISTANT, ARETHA S 266.2 OTHER B-COMPLEX DEFICIENCIES 08/19/2010 HUEY FIELD ASSISTANT, ARETHA S 272.4 OTHER AND UNSPECIFIED HYPERLIPIDEMIA 08/19/2010 HUEY FIELD ASSISTANT, ARETHA S 338.29 OTHER CHRONIC PAIN 08/19/2010 HUEY FIELD ASSISTANT, ARETHA S 401.9 UNSPECIFIED ESSENTIAL HYPERTENSION 08/19/2010 HUEY FIELD ASSISTANT, ARETHA S 627.2 SYMPTOMATIC MENOPAUSAL OR FEMALE CLIMACTERIC STATES 08/19/2010 HUEY FIELD ASSISTANT, ARETHA S 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 08/19/2010 HUEY FIELD ASSISTANT, ARETHA S 724.2 LUMBAGO 08/19/2010 HUEY FIELD ASSISTANT, ARETHA S 266.2 OTHER B-COMPLEX DEFICIENCIES 08/19/2010 HUEY FIELD ASSISTANT, ARETHA S 272.4 OTHER AND UNSPECIFIED HYPERLIPIDEMIA 08/19/2010 HUEY FIELD ASSISTANT, ARETHA S 338.29 OTHER CHRONIC PAIN 08/19/2010 HUEY CHINN, ARETHA S 401.9 UNSPECIFIED ESSENTIAL HYPERTENSION 08/19/2010 HUEY BALLARD, ARETHA S 627.2 SYMPTOMATIC MENOPAUSAL OR FEMALE CLIMACTERIC STATES 08/19/2010 HUEY CHINN, ARETHA S 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 08/19/2010 HUEY BALLARD, ARETHA S 724.2 LUMBAGO 09/02/2010 ROSITA PACHECO [...] 268.9 UNSPECIFIED VITAMIN D DEFICIENCY 09/02/2010 HUEY BALLADR, ARETHA S 268.9 UNSPECIFIED VITAMIN D DEFICIENCY 09/02/2010 HUEY BALLARD, ARETHA S 268.9 UNSPECIFIED VITAMIN D DEFICIENCY 09/02/2010 HUEY BALLARD ARETHA S 268.9 UNSPECIFIED VITAMIN D DEFICIENCY 09/30/2010 ROSITA PACHECO MD 692.89 Contact Dermatitis And Other Eczema Due To Other Specified Agents 09/30/2010 ROSITA PACHECO MD 709.9 Unspecified Disorder Of Skin And Subcutaneous Tissue 09/30/2010 JUMA ARZATE APRNA S 692.89 Contact Dermatitis And Other Eczema [...] Disorder Of Skin And Subcutaneous Tissue 09/30/2010 JUMA ARZATE APRNA S 692.89 Contact Dermatitis And Other Eczema [...] 02/22/2011 789.06 Abdominal Pain Epigastric 02/22/2011 PANCHAL DOJOOA K 530.81 ESOPHAGEAL REFLUX 02/22/2011 PANCHAL DOGABRIELLE K 789.06 Abdominal Pain Epigastric 02/22/2011 530.81 ESOPHAGEAL REFLUX 02/22/2011 789.06 Abdominal Pain Epigastric 02/22/2011 530.81 ESOPHAGEAL REFLUX 02/22/2011 789.06 Abdominal Pain Epigastric 02/22/2011 530.81 ESOPHAGEAL REFLUX 02/22/2011 789.06 Abdominal Pain Epigastric 02/22/2011 530.81 ESOPHAGEAL REFLUX 02/22/2011 789.06 Abdominal Pain Epigastric 02/22/2011 530.81 ESOPHAGEAL REFLUX 02/22/2011 789.06 Abdominal Pain Epigastric 02/22/2011 ARETHA ARZATE APRN S 530.81 ESOPHAGEAL REFLUX 02/22/2011 ARETHA ARZATE APRN S 789.06 Abdominal Pain Epigastric 02/22/2011 ARETHA ARZATE [...] PACHECO MD 786.05 SHORTNESS OF BREATH 05/12/2011 HUEY FIELD ASSISTANTLIZZY GarayNDA S 780.79 OTHER MALAISE AND FATIGUE 05/12/2011 LIZZY ARZATE APRNNDA S 782.3 EDEMA 05/12/2011 LIZZY ARZATE APRNNDA S 782.7 SPONTANEOUS ECCHYMOSES 05/12/2011 LIZZY ARZATE APRNNDA S 783.1 ABNORMAL WEIGHT GAIN 05/12/2011 LIZZY ARZATE APRNNDA S 786.05 SHORTNESS OF BREATH 05/12/2011 780.79 OTHER MALAISE AND FATIGUE 05/12/2011 782.3 EDEMA 05/12/2011 782.7 SPONTANEOUS ECCHYMOSES 05/12/2011 783.1 ABNORMAL WEIGHT GAIN 05/12/2011 786.05 SHORTNESS OF BREATH 05/12/2011 JOO PANCHAL DOA K 780.79 OTHER MALAISE AND FATIGUE 05/12/2011 JOO PANCHAL DOA K 782.3 EDEMA 05/12/2011 PANCHAL DO GABRIELLE K 782.7 SPONTANEOUS ECCHYMOSES 05/12/2011 JOO PANCHAL DOA K 783.1 ABNORMAL WEIGHT GAIN 05/12/2011 JOO PANCHAL DOA K 786.05 SHORTNESS OF BREATH 05/12/2011 780.79 [...] 780.79 OTHER MALAISE AND FATIGUE 05/12/2011 HUEY CHINN, ARETHA S 782.3 EDEMA 05/12/2011 HUEY BALLARD, ARETHA S 782.7 SPONTANEOUS ECCHYMOSES 05/12/2011 LIZZY ARZATE APRNNDA S 783.1 ABNORMAL WEIGHT GAIN 05/12/2011 ARETHA ARZATE APRN S 786.05 SHORTNESS OF BREATH 05/18/2011 ROSITA [...] ABNORMALITY OF GAIT 10/10/2011 ARETHA ARZATE APRN 300.00 ANXIETY STATE UNSPECIFIED 10/10/2011 ARETHA ARZATE APRN 780.93 MEMORY LOSS 10/10/2011 ARETHA ARZATE APRN 781.2 ABNORMALITY OF GAIT 10/10/2011 300.00 ANXIETY STATE UNSPECIFIED 10/10/2011 780.93 MEMORY LOSS 10/10/2011 781.2 ABNORMALITY OF GAIT 10/10/2011 PANCHAL DO, GABRIELLE K 300.00 ANXIETY STATE UNSPECIFIED 10/10/2011 PANCHAL DO, GABRIELLE K 780.93 MEMORY LOSS 10/10/2011 PANCHAL DO, GABRIELLE K 781.2 ABNORMALITY OF GAIT 10/10/2011 [...] 10/10/2011 781.2 ABNORMALITY OF GAIT 10/10/2011 HUEY FIELD ASSISTANT, ARETHA S 300.00 ANXIETY STATE UNSPECIFIED 10/10/2011 HUEY FIELD ASSISTANT, ARETHA S 780.93 MEMORY LOSS 10/10/2011 HUEY FIELD ASSISTANT, ARETHA S 781.2 ABNORMALITY OF GAIT 10/10/2011 HUEY FIELD ASSISTANT, ARETHA S 300.00 ANXIETY STATE UNSPECIFIED 10/10/2011 HUEY FIELD ASSISTANT, ARETHA S 780.93 MEMORY LOSS 10/10/2011 HUEY FIELD ASSISTANT, ARETHA S 781.2 ABNORMALITY OF GAIT 10/10/2011 HUEY FIELD ASSISTANT, ARETHA S 300.00 ANXIETY STATE UNSPECIFIED 10/10/2011 HUEY FIELD ASSISTANT, ARETHA S 780.93 MEMORY LOSS 10/10/2011 HUEY FIELD ASSISTANT, ARETAH S 781.2 ABNORMALITY OF GAIT 10/11/2011 ROSITA PACHECO MD 288.60 Leukocytosis 10/11/2011 ROSITA PACHECO MD 288.66 Bandemia 10/11/2011 ROSITA PACHECO MD 786.09 RESPIRATORY ABNORMALITY OTHER 10/11/2011 HUEY FIELD ASSISTANT, ARETHA S 288.60 Leukocytosis 10/11/2011 LIZZY ARZATE APRNNDA S 288.66 Bandemia 10/11/2011 HUEY FIELD ASSISTANT, ARETHA S 786.09 RESPIRATORY ABNORMALITY OTHER 10/11/2011 [...] 10/11/2011 786.09 RESPIRATORY ABNORMALITY OTHER 10/11/2011 HUEY FIELD ASSISTANT, ARETHA S 288.60 Leukocytosis 10/11/2011 HUEY FIELD ASSISTANT, ARETHA S 288.66 Bandemia 10/11/2011 HUEY FIELD ASSISTANT, ARETHA S 786.09 RESPIRATORY ABNORMALITY OTHER 10/11/2011 HUEY FIELD ASSISTANT, ARETHA S 288.60 Leukocytosis 10/11/2011 HUEY FIELD ASSISTANT, ARETHA S 288.66 Bandemia 10/11/2011 HUEY FIELD ASSISTANT, ARETHA S 786.09 RESPIRATORY ABNORMALITY OTHER 10/11/2011 HUEY FIELD ASSISTANT, ARETHA S 288.60 Leukocytosis 10/11/2011 HUEY FIELD ASSISTANT, ARETHA S 288.66 Bandemia 10/11/2011 HUEY FIELD ASSISTANT, ARETHA S 786.09 RESPIRATORY ABNORMALITY OTHER 10/25/2011 ROSITA PACHECO MD 458.9 Hypotension Unspecified 10/25/2011 ROSITA PACHECO MD 780.1 Hallucinations 10/25/2011 HUEY BALLARD, ARETHA S 458.9 Hypotension Unspecified 10/25/2011 HUEY FIELD ASSISTANT, ARETHA S 780.1 Hallucinations 10/25/2011 458.9 Hypotension Unspecified 10/25/2011 780.1 Hallucinations 10/25/2011 GABRIELLE PANCHAL DO 458.9 Hypotension Unspecified 10/25/2011 GABRIELLE PANCHAL DO 780.1 Hallucinations 10/25/2011 458.9 Hypotension Unspecified 10/25/2011 780.1 Hallucinations 10/25/2011 458.9 Hypotension Unspecified 10/25/2011 780.1 Hallucinations 10/25/2011 458.9 Hypotension Unspecified 10/25/2011 780.1 Hallucinations 10/25/2011 458.9 Hypotension Unspecified 10/25/2011 780.1 Hallucinations 10/25/2011 458.9 Hypotension Unspecified 10/25/2011 780.1 Hallucinations 10/25/2011 LIZZY ARZATE APRNNDA S 458.9 Hypotension Unspecified 10/25/2011 LIZZY ARZATE APRNNDA S 780.1 Hallucinations 10/25/2011 LIZZY ARZATE APRNNDA S 458.9 Hypotension Unspecified 10/25/2011 LIZZY ARZATE APRNNDA S 780.1 Hallucinations 10/25/2011 LIZZY ARZATE APRNNDA S 458.9 Hypotension Unspecified 10/25/2011 LIZZY ARZATE APRNNDA S 780.1 Hallucinations 2011 ROSITA PACHECO MD 593.9 UNSPECIFIED DISORDER OF KIDNEY AND URETER 2011 JUMA ARZATE APRNA S 593.9 UNSPECIFIED DISORDER OF KIDNEY AND [...] UNSPECIFIED DISORDER OF KIDNEY AND URETER 2011 ARETHA ARZATE APRN S 593.9 UNSPECIFIED DISORDER OF KIDNEY AND [...] 01/20/2012 477.9 RHINITIS 01/20/2012 477.9 RHINITIS 01/20/2012 JUMA ARZATE APRNA S 477.9 RHINITIS 01/20/2012 ARETHA ARZATE APRN S [...] APRNA S 729.5 PAIN IN LIMB 05/30/2012 JUMA ARZATE APRNA S 719.41 PAIN IN JOINT INVOLVING SHOULDER REGION 05/30/2012 JUMA ARZATE APRNA S 729.5 PAIN IN LIMB 05/30/2012 JUMA [...] ( PNEUMOVAX) DX 09/03/2012 GABRIELLE PANCHAL DO K 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 09/03/2012 GABRIELLE PANCHAL [...] GENERALIZED HYPERHIDROSIS 10/29/2012 780.8 GENERALIZED HYPERHIDROSIS 10/29/2012 PANCHAL GABRIELLE DRUMMOND 780.8 GENERALIZED HYPERHIDROSIS 10/29/2012 780.8 GENERALIZED HYPERHIDROSIS 10/29/2012 780.8 GENERALIZED HYPERHIDROSIS 10/29/2012 780.8 GENERALIZED HYPERHIDROSIS 10/29/2012 780.8 GENERALIZED HYPERHIDROSIS 10/29/2012 780.8 GENERALIZED HYPERHIDROSIS 10/29/2012 HUEY FIELD ASSISTANTLIZZY GarayNDA S 780.8 GENERALIZED HYPERHIDROSIS 10/29/2012 LIZZY ARZATE APRNNDA S 780.8 GENERALIZED HYPERHIDROSIS 11/29/2012 V72.31 SPOON MAKER EXAM, ROUTINE 11/29/2012 V76.10 BREAST CANCER SCREENING 11/29/2012 GABRIELLE PANCHAL DO V72.31 SPOON MAKER EXAM, ROUTINE 11/29/2012 PANCHAL GABRIELLE DRUMMOND V76.10 BREAST CANCER SCREENING 11/29/2012 V72.31 SPOON MAKER EXAM, ROUTINE 11/29/2012 V76.10 BREAST CANCER SCREENING 11/29/2012 V72.31 SPOON MAKER EXAM, ROUTINE 11/29/2012 V76.10 BREAST CANCER SCREENING 11/29/2012 V72.31 SPOON MAKER EXAM, ROUTINE 11/29/2012 V76.10 BREAST CANCER SCREENING 11/29/2012 V72.31 SPOON MAKER EXAM, ROUTINE 11/29/2012 V76.10 BREAST CANCER SCREENING 11/29/2012 V72.31 SPOON MAKER EXAM, ROUTINE 11/29/2012 V76.10 BREAST CANCER SCREENING 11/29/2012 HUEY FIELD ASSISTANT ARETAH S V72.31 SPOON MAKER EXAM, ROUTINE 11/29/2012 HUEY FIELD ASSISTANTLIZZY GarayNDA S V76.10 BREAST CANCER SCREENING 11/29/2012 HUEY FIELD ASSISTANT, ARETHA S V72.31 SPOON MAKER EXAM, ROUTINE 11/29/2012 HUEY FIELD ASSISTANT, ARETHA S V76.10 BREAST CANCER SCREENING 12/05/2012 PANCHAL GABRIELLE DRUMMOND 813.00 CLOSED FRACTURE OF UPPER END OF [...] S 729.82 CRAMP OF LIMB 05/01/2013 KEV PEREZP Ot 726.2 SHOULDER REGION DIS NEC 05/01/2013 KEV PEREZ FASHION INTERN Ot 726.32 LATERAL EPICONDYLITIS 05/01/2013 KEV PEREZ FASHION INTERN Ot V57.1 PHYSICAL THERAPY NEC 07/01/2013 MATT HIDALGO MD Ot 724.5 BACKACHE NOS 07/01/2013 MATT HIDALGO MD Ot 780.2 SYNCOPE AND COLLAPSE 07/01/2013 MATT HIDALGO MD Ot 786.50 CHEST PAIN NOS 07/01/2013 MATT HIDALGO MD Ot 920 CONTUSION FACE/SCALP/NCK 07/01/2013 MATT HIDALGO MD Ot E000.8 OTHER EXTERNAL CAUSE STATUS 07/01/2013 GWNE COLLINS, MATT Oneill Ot E849.0 ACCIDENT IN HOME 07/01/2013 GWEN COLLINS, MATT Oneill Ot E884.2 FALL FROM CHAIR 07/03/2013 HUEY BALLARD ARETHA S V04.81 FLU SHOT 07/03/2013 ARETHA ARZATE APRN S V04.81 FLU SHOT 03/15/2014 ANOOP MIRANDA DO Ot 272.4 HYPERLIPIDEMIA NEC/NOS 03/15/2014 ANOOP MIRANDA DO Ot 356.9 IDIO PERIPH NEURPTHY NOS 03/15/2014 ANOOP MIRANDA DO Ot 402.90 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 03/15/2014 ANOOP MIRANDA DO Ot 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[place] CORON 03/15/2014 ANOOP MIRANDA DO Ot 496 CHR AIRWAY OBSTRUCT NEC 03/15/2014 NAOOP MIRANDA DO Ot 564.00 UNSPEC CONSTIPATION 03/15/2014 ANOOP MIRANDA DO Ot 715.90 OSTEOARTHROS NOS-UNSPEC 03/15/2014 [facility] NAOOP DRUMMOND Ot 719.40 JOINT PAIN-UNSPEC 03/15/2014 [facility] ANOOP DRUMMOND Ot 724.5 BACKACHE NOS 03/15/2014 [facility] ANOOP DRUMMOND Ot 733.6 TIETZE'S DISEASE 03/15/2014 [facility] DRUMMOND Ot 782.3 EDEMA 03/15/2014 ANOOP MIRANDA DO [...] (W/O MENT OF HEMORR 09/16/2014 STACY LOWE FASHION INTERN Ot 719.47 JOINT PAIN-ANKLE 09/16/2014 STACY LOWE FASHION INTERN Ot 724.5 BACKACHE NOS 09/16/2014 STACY LOWE FASHION INTERN Ot V57.1 PHYSICAL THERAPY NEC 10/14/2014 FRANCY [...] 780.93 12/15/2014 Ot 781.2 12/15/2014 STACY LOWE FASHION INTERN Ot 719.47 12/15/2014 STACY LOWE FASHION INTERN Ot 722.52 12/15/2014 STACY LOWE FASHION INTERN Ot 736.70 12/15/2014 STACY LOWE FASHION INTERN Ot 737.30 12/15/2014 STACY LOWE FASHION INTERN Ot 756.12 12/15/2014 ARETHA ARZATE FASHION INTERN Ot 611.71 12/15/2014 ARETHA ARZATE FASHION INTERN Ot 611.79 12/15/2014 ABDELRAHMAN COLLINS, CADEN Guerrero Ot 397.0 12/15/2014 ABDELRAHMAN COLLINS, CADEN Guerrero Ot 424.0 12/15/2014 ABDELRAHMAN COLLINS, CADEN Guerrero Ot 786.09 12/15/2014 ABDELRAHMAN COLLINS, CADEN Guerrero Ot 786.50 12/15/2014 ABDELRAHMAN COLLINS, CADEN Guerrero Ot 786.09 12/15/2014 ABDELRAHMAN COLLINS, CADEN Guerrero Ot 786.50 12/15/2014 ANOOP MIRANDA DO Ot V54.16 12/15/2014 STACY LOWE FASHION INTERN Ot V76.12 12/15/2014 LADONNA GALLARDO MD Ot V72.84 01/22/2015 Ot 715.31 02/18/2015 Ot 715.31 02/18/2015 Ot 611.72 02/18/2015 Ot V76.12 02/18/2015 Ot 793.80 02/18/2015 Ot 793.80 02/18/2015 Ot 338.29 02/18/2015 Ot 724.2 02/18/2015 Ot 786.05 02/18/2015 Ot 780.93 02/18/2015 Ot 781.2 02/18/2015 Ot 331.9 02/18/2015 Ot 780.93 02/18/2015 Ot 781.2 02/18/2015 STACY LOWE FASHION INTERN Ot 719.47 02/18/2015 STACY LOWE FASHION INTERN Ot 722.52 02/18/2015 STACY LOWE FASHION INTERN Ot 736.70 02/18/2015 STACY LOWE FASHION INTERN Ot 737.30 02/18/2015 STACY LOWE FASHION INTERN Ot 756.12 02/18/2015 ARETHA ARZATE FASHION INTERN Ot 611.71 02/18/2015 ARETHA ARZATE FASHION INTERN Ot 611.79 02/18/2015 ABDELRAHMAN COLLINS, CADEN Guerrero Ot 397.0 02/18/2015 ABDELRAHMAN COLLINS, CADEN Guerrero Ot 424.0 02/18/2015 ABDELRAHMAN COLLINS, CADEN Guerrero Ot 786.09 02/18/2015 ABDELRAHMAN COLLINS, CADEN Guerrero Ot 786.50 02/18/2015 ABDELRAHMAN COLLINS, CADEN Guerrero Ot 786.09 02/18/2015 ABDELRAHMAN COLLINS, CADEN Guerrero Ot 786.50 02/18/2015 ANOOP MIRANDA DO Ot V54.16 02/18/2015 STACY LOWE [facility] Ot V76.12 02/18/2015 LADONNA GALLARDO MD Ot V72.84 02/18/2015 Ot 715.91 02/18/2015 Ot 715.31 02/26/2015 Ot 611.72 02/26/2015 Ot V76.12 02/26/2015 Ot 793.80 02/26/2015 Ot 793.80 02/26/2015 Ot 338.29 02/26/2015 Ot 724.2 02/26/2015 Ot 786.05 02/26/2015 Ot 780.93 02/26/2015 Ot 781.2 02/26/2015 Ot 331.9 02/26/2015 Ot 780.93 02/26/2015 Ot 781.2 02/26/2015 STACY LOWE [facility] Ot 719.47 02/26/2015 STACY LOWE [facility] Ot 722.52 02/26/2015 STACY LOWE FASHION INTERN Ot 736.70 02/26/2015 STACY LOWE FASHION INTERN Ot 737.30 02/26/2015 STACY LOWE [facility] Ot 756.12 02/26/2015 ARETHA ARZATE FASHION INTERN Ot 611.71 02/26/2015 ARETHA ARZATE FASHION INTERN Ot 611.79 02/26/2015 ABDELRAHMAN COLLINS, CADEN Guerrero Ot 397.0 02/26/2015 CADEN QUICK MD Ot 424.0 02/26/2015 CADEN QUICK MD Ot 786.09 02/26/2015 ABDELRAHMAN COLLINS, ACDEN Guerrero Ot 786.50 02/26/2015 ABDELRAHMAN COLLINS, CADEN Guerrero Ot 786.09 02/26/2015 ABDELRAHMAN COLLINS, CADEN Guerrero Ot 786.50 02/26/2015 ANOOP MIRANDA DO Ot V54.16 02/26/2015 STACY LOWE FASHION INTERN Ot V76.12 02/26/2015 LADONNA GALLARDO MD Ot V72.84 02/26/2015 Ot 715.91 02/26/2015 Ot 715.31 03/02/2015 Ot 611.72 03/02/2015 Ot V76.12 03/02/2015 Ot 793.80 03/02/2015 Ot 793.80 03/02/2015 Ot 338.29 03/02/2015 Ot 724.2 03/02/2015 Ot 786.05 03/02/2015 Ot 780.93 03/02/2015 Ot 781.2 03/02/2015 Ot 331.9 03/02/2015 Ot 780.93 03/02/2015 Ot 781.2 03/02/2015 STACY LOWE FASHION INTERN Ot 719.47 03/02/2015 STACY LOWE FASHION INTERN Ot 722.52 03/02/2015 STACY LOWE FASHION INTERN Ot 736.70 03/02/2015 STACY LOWE FASHION INTERN Ot 737.30 03/02/2015 STACY LOWE FASHION INTERN Ot 756.12 03/02/2015 ARETHA ARZATE FASHION INTERN Ot 611.71 03/02/2015 ARETHA ARZATE FASHION INTERN Ot 611.79 03/02/2015 ABDELRAHMAN COLLINS, CADEN Guerrero Ot 397.0 03/02/2015 ABDELRAHMAN COLLINS, CADEN Guerrero Ot 424.0 03/02/2015 ABDELRAHMAN COLLINS, CADEN Guerrero Ot 786.09 03/02/2015 ABDELRAHMAN COLLINS, CADEN Guerrero Ot 786.50 03/02/2015 ABDELRAHMAN COLLINS, CADEN Guerrero Ot 786.09 03/02/2015 ABDELRAHMAN COLLINS, CADEN Guerrero Ot 786.50 03/02/2015 ANOOP MIRANDA DO Ot V54.16 03/02/2015 STACY LOWE FASHION INTERN Ot V76.12 03/02/2015 PAULINA COLLINS, LADONNA Ot [...] LOSS OF CONSCIOUSNESS 08/05/2015 ELIO LEA DO Nino Ot S19.9XXA UNSPECIFIED INJURY OF NECK, INITIAL ENCO 08/05/2015 ELIO LEA DO Nino Ot W18.09XA STRIKING AGAINST OTH OBJECT W SUBSEQUENT 08/05/2015 ELIO LEA DO Nino Ot Y92.[address] IN SINGLE-FAMILY (PRIVATE) HO 08/05/2015 VENU DRUMMOND ELIO D Ot Z23 ENCOUNTER FOR IMMUNIZATION 08/05/2015 ELIO LEA DO Nino Ot Z87.891 PERSONAL HISTORY OF NICOTINE DEPENDENCE 08/07/2015 Ot 611.72 08/07/2015 Ot V76.12 08/07/2015 Ot 793.80 08/07/2015 Ot 793.80 08/07/2015 Ot 338.29 08/07/2015 Ot 724.2 08/07/2015 Ot 786.05 08/07/2015 Ot 780.93 08/07/2015 Ot 781.2 08/07/2015 Ot 331.9 08/07/2015 Ot 780.93 08/07/2015 Ot 781.2 08/07/2015 STACY LOWE FASHION INTERN Ot 719.47 08/07/2015 STACY LOWE FASHION INTERN Ot 722.52 08/07/2015 STACY LOWE FASHION INTERN Ot 736.70 08/07/2015 STACY LOWE FASHION INTERN Ot 737.30 08/07/2015 STACY LOWE FASHION INTERN Ot 756.12 08/07/2015 ARETHA ARZATE FASHION INTERN Ot 611.71 08/07/2015 ARETHA ARZATE FASHION INTERN Ot 611.79 08/07/2015 CADEN QUICK MD Ot 397.0 08/07/2015 CADEN QUICK MD Ot 424.0 08/07/2015 CADEN QUICK MD Ot 786.09 08/07/2015 CADEN QUICK MD Ot 786.50 08/07/2015 CADEN QUICK MD Ot 786.09 08/07/2015 CADEN QUICK MD Ot 786.50 08/07/2015 ANOOP MIRANDA DO Ot V54.16 08/07/2015 STACY LOWEP Ot V76.12 08/07/2015 PAULINA COLLINS, LADONNA Ot V72.84 08/07/2015 Ot 715.91 08/07/2015 Ot 715.31 08/07/2015 LEANDRO FIGUEROA MD Ot V76.12 09/11/2015 Ot 611.72 09/11/2015 Ot V76.12 09/11/2015 Ot 793.80 09/11/2015 Ot 793.80 09/11/2015 Ot 338.29 09/11/2015 Ot 724.2 09/11/2015 Ot 786.05 09/11/2015 Ot 780.93 09/11/2015 Ot 781.2 09/11/2015 Ot 331.9 09/11/2015 Ot 780.93 09/11/2015 Ot 781.2 09/11/2015 STACY LOWE FASHION INTERN Ot 719.47 09/11/2015 STACY LOWE FASHION INTERN Ot 722.52 09/11/2015 STACY LOWE FASHION INTERN Ot 736.70 09/11/2015 STACY LOWE FASHION INTERN Ot 737.30 09/11/2015 STACY LOWE FASHION INTERN Ot 756.12 09/11/2015 ARETHA ARZATE FASHION INTERN Ot 611.71 09/11/2015 ARETHA ARZATE FASHION INTERN Ot 611.79 09/11/2015 CADEN QUICK MD Ot 397.0 09/11/2015 ABDELRAHMAN COLLINS, CADEN Guerrero Ot 424.0 09/11/2015 CADEN QUICK MD Ot 786.09 09/11/2015 CAEDN QUICK MD Ot 786.50 09/11/2015 ABDELRAHMAN COLLINS, CADEN Guerrero Ot 786.09 09/11/2015 CADEN QUICK MD Ot 786.50 09/11/2015 ANOOP MIRANDA DO Ot V54.16 09/11/2015 STACY LOWE FASHION INTERN Ot V76.12 09/11/2015 LADONNA GALLARDO MD Ot V72.84 09/11/2015 Ot 715.91 09/11/2015 Ot 715.31 09/11/2015 LEANDRO FIGUEROA MD Ot V76.12 10/05/2015 LEANDRO FIGUEROA MD Ot M41.9 10/05/2015 CAROLINA COLLINS, LEANDRO A Ot M47.894 10/15/2015 STACY LOWE FASHION INTERN Ot M47.894 10/15/2015 STACY LOWE FASHION INTERN Ot M47.896 10/21/2015 GWEN COLLINS, MATT Oneill Ot N39.0 URINARY TRACT INFECTION, SITE NOT SPECIF 10/21/2015 GWEN COLLINS, MATT Oneill Ot R07.89 OTHER CHEST PAIN 10/21/2015 GWEN COLLINS, MATT Oneill Ot R13.10 DYSPHAGIA, UNSPECIFIED 10/21/2015 GWEN COLLINS, MATT Oneill Ot R47.81 SLURRED SPEECH 10/22/2015 CAROLINA COLLINS, LEANDRO A Ot M41.9 10/22/2015 CAROLIAN COLLINS, LEANDRO A Ot M47.894 10/29/2015 ENID DO, HEATHER F Ot M19.011 10/29/2015 ENID DO, HEATHER F Ot M75.101 10/29/2015 STACY LOWE FASHION INTERN Ot M47.894 10/29/2015 STACY LOWE FASHION INTERN Ot M47.896 11/05/2015 CAROLINA COLLINS, LEANDRO A Ot M41.9 11/05/2015 CAROLINA COLLINS, LEANDRO A Ot M47.894 11/05/2015 ENID DO, HEATHER F Ot M19.011 11/05/2015 ENID DO, HEATHER F Ot M75.101 11/17/2015 SHAVONNE COLLINS, AIRAM T Ot G89.29 OTHER CHRONIC PAIN 11/17/2015 SHAVONNE COLLINS, AIRAM T Ot M25.511 PAIN IN RIGHT SHOULDER 12/10/2015 ENID DO, HEATHER F Ot M19.011 12/10/2015 ENID DO, HEATHER F Ot D64.9 ANEMIA, UNSPECIFIED 12/10/2015 ENID DO, HEATHER F Ot E11.9 TYPE 2 DIABETES MELLITUS WITHOUT COMPLIC 12/10/2015 EIND DO, HEATHER F Ot E78.0 PURE HYPERCHOLESTEROLEMIA 12/10/2015 ENID DO, HEATHER F Ot E87.1 HYPO-OSMOLALITY AND HYPONATREMIA 12/10/2015 ENID DO, HEATHER F Ot G47.30 SLEEP APNEA, UNSPECIFIED 12/10/2015 ENID DO, HEATHER F Ot G62.9 POLYNEUROPATHY, UNSPECIFIED 12/10/2015 ENID DO, HEATHER Frank Ot G89.4 CHRONIC PAIN SYNDROME 12/10/2015 ENID , HEATHER Frank Ot J44.9 CHRONIC OBSTRUCTIVE PULMONARY DISEASE, U 12/10/2015 ENID , HEATHER Frank Ot K21.9 GASTRO-ESOPHAGEAL REFLUX DISEASE WITHOUT 12/10/2015 ENID DO, HEATHER Frank Ot M19.012 PRIMARY OSTEOARTHRITIS, LEFT SHOULDER 12/18/2015 ENID DO, HEATHER Frank Ot M19.011 12/18/2015 ENID DO, HEATHER Frank Ot Z01.811 12/18/2015 ENID DO, HEATHER Frank Ot Z01.812 12/18/2015 ENID DO, HEATHER Frank Ot Z11.2 12/29/2015 CAROLINA COLLINS, LEANDRO Reyes Ot E11.9 TYPE 2 DIABETES MELLITUS WITHOUT COMPLIC 12/29/2015 CAROLINA COLLINS, LEANDRO Reyes Ot E86.0 DEHYDRATION 12/29/2015 LEANDRO FIGUEROA MD Ot K52.9 NONINFECTIVE GASTROENTERITIS AND COLITIS 12/29/2015 CAROLINA COLLINS, LEANDRO Reyes Ot R41.0 DISORIENTATION, UNSPECIFIED 12/31/2015 ENID DO, HEATHER Frank Ot M19.011 12/31/2015 ENID DO, HEATHER Frank Ot Z01.811 12/31/2015 ENID DO, HEATHER Frank Ot Z01.812 12/31/2015 ENID DO, HEATHER Frank Ot Z11.2 01/28/2016 ENID HEATHER Frank Ot M79.604 01/28/2016 ENID DRUMMOND HEATHER Frank Ot R22.41 02/16/2016 ABDELRAHMAN COLLINS, [...] SWELLING, MASS AND LUMP, RIGHT 03/01/2016 ENID HEATHER Frank Ot M79.604 PAIN IN RIGHT LEG 03/01/2016 HEATHER ROSSI DO Ot R22.41 LOCALIZED SWELLING, MASS AND LUMP, RIGHT 03/09/2016 CADEN QUICK MD Ot E78.2 MIXED HYPERLIPIDEMIA 03/09/2016 CADEN QUICK MD Ot I10 ESSENTIAL (PRIMARY) HYPERTENSION 03/09/2016 CADEN QUICK MD Ot R06.00 DYSPNEA, UNSPECIFIED 03/09/2016 CADEN QUICK MD Ot R09.89 OTH SYMPTOMS AND SIGNS INVOLVING THE CIR 03/14/2016 HEATHER ROSIS DO Ot M25.511 PAIN IN RIGHT SHOULDER 03/31/2016 [...] Ot M25.511 PAIN IN RIGHT SHOULDER 07/01/2016 HEATHER ROSSI DO Ot M25.511 PAIN IN RIGHT SHOULDER 07/21/2016 [...] LOWEP Ot 719.47 JOINT PAIN-ANKLE 12/01/2017 STACY LOWE FASHION INTERN Ot 722.52 LUMB/LUMBOSAC DISC DEGEN 12/01/2017 STACY LOWEP Ot 736.70 ACQ ANKLE-FOOT DEF NOS 12/01/2017 STACY LOWE [facility] Ot 737.30 IDIOPATHIC SCOLIOSIS 12/01/2017 STACY LOWE [facility] Ot 756.12 SPONDYLOLISTHESIS 12/01/2017 AREHTA ARZATE FASHION INTERN Ot 611.71 MASTODYNIA 12/01/2017 ARETHA ARZATE [facility] Ot 611.79 SYMPTOMS IN BREAST NEC 12/01/2017 CADEN QUICK MD Ot 397.0 TRICUSPID VALVE DISEASE 12/01/2017 CADEN [...] TRAUMATIC FX LOWER LEG 12/01/2017 STACY LOWE [facility] Ot V76.12 OTH SCREEN MAMMO-MALIGN NEOPLASM OF TEREZA 12/01/2017 PAULINA COLLINS, LADONNA Ot V72.84 EXAM PRE-OPERATIVE NOS 12/01/2017 Ot 715.91 OSTEOARTHROS NOS-SHLDER 12/01/2017 Ot 715.31 LOC OSTEOARTH NOS-SHLDER 12/01/2017 CAROLINA COLLINS, LEANDRO Reyes Ot V76.12 OTH SCREEN MAMMO-MALIGN NEOPLASM OF TEREZA 12/01/2017 BILLY CARO APRN Ot R06.02 SHORTNESS OF BREATH 12/01/2017 STACY LOWE [facility] Ot 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, THORACIC REGION 12/01/2017 STACY LOWE [facility] Ot M47.896 OTHER SPONDYLOSIS, LUMBAR REGION 12/01/2017 CAROLINA COLLINS, LEANDRO Reyes Ot M41.9 SCOLIOSIS, UNSPECIFIED 12/01/2017 LEANDRO FIGUEROA MD Ot 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, THORACIC REGION 12/01/2017 HEATHER ROSIS DO Ot M19.011 PRIMARY OSTEOARTHRITIS, RIGHT SHOULDER 12/01/2017 HEATHER ROSSI DO Ot M75.101 UNSP ROTATR-CUFF TEAR/RUPTR OF RIGHT UNA 12/01/2017 HEATHER ROSSI DO Ot M19.011 PRIMARY OSTEOARTHRITIS, RIGHT SHOULDER 12/01/2017 [...] CADEN Guerrero Ot E78.2 MIXED HYPERLIPIDEMIA 12/01/2017 ABDELRAHMAN COLLINS, CADEN Guerrero Ot I10 ESSENTIAL (PRIMARY) HYPERTENSION 12/01/2017 ABDELRAHMAN COLLINS, CADEN Guerrero Ot R06.00 DYSPNEA, UNSPECIFIED 12/01/2017 ABDELRAHMAN COLLINS, CADEN Guerrero Ot R09.89 OTH SYMPTOMS AND SIGNS INVOLVING THE CIR 12/01/2017 HEATHER ROSSI DO Ot M25.511 PAIN IN RIGHT SHOULDER 12/01/2017 LIZETH COLLINS, MARK Oneill Ot R10.12 LEFT UPPER QUADRANT PAIN 12/01/2017 LIZETH COLLINS, MARK Oneill Ot R10.13 EPIGASTRIC PAIN 12/01/2017 LIZETH COLLINS, MARK Oneill Ot R13.10 DYSPHAGIA, UNSPECIFIED 12/01/2017 LIZETH COLLINS, MARK Oneill Ot Z01.818 ENCOUNTER FOR OTHER PREPROCEDURAL EXAMIN 12/01/2017 LIZETH COLLINS, MARK Oneill Ot Z86.010 PERSONAL [...] SPECIFIED FORMS OF TREMOR 12/04/2017 KATHIA ELLIS MD, Ot G47.30 SLEEP APNEA, UNSPECIFIED 12/04/2017 KATHIA ELLIS MD, Ot G89.4 CHRONIC PAIN SYNDROME 12/04/2017 KATHIA ELLIS MD, Ot J18.9 PNEUMONIA, UNSPECIFIED ORGANISM 12/04/2017 KATHIA ELLIS MD, Ot J44.9 CHRONIC OBSTRUCTIVE PULMONARY DISEASE, U 12/04/2017 KATHIA ELLIS MD, Ot K21.9 GASTRO-ESOPHAGEAL REFLUX DISEASE WITHOUT 12/04/2017 KATHIA ELLIS MD Ot M19.91 PRIMARY OSTEOARTHRITIS, UNSPECIFIED SITE 12/04/2017 KATHIA ELLIS MD, Ot M25.551 PAIN IN RIGHT HIP 12/04/2017 KATHIA ELLIS MD, Ot M25.552 PAIN IN LEFT HIP 12/04/2017 KATHIA ELLIS MD, Ot M54.9 DORSALGIA, UNSPECIFIED 12/04/2017 KATHIA ELLIS MD, Ot R19.7 DIARRHEA, UNSPECIFIED 12/04/2017 KATHIA ELLIS MD Ot R55 SYNCOPE AND COLLAPSE 12/04/2017 KATHIA ELLIS MD Ot Z23 ENCOUNTER FOR IMMUNIZATION 12/04/2017 KATHIA ELLIS MD Ot Z86.19 PERSONAL HISTORY OF OTHER INFECTIOUS AND 12/04/2017 KATHIA ELLIS MD, Ot Z86.73 PRSNL HX OF TIA (TIA), AND CEREB INFRC W 12/04/2017 KATHIA ELLIS MD, Ot Z87.891 PERSONAL HISTORY OF NICOTINE DEPENDENCE 12/04/2017 KATHIA ELLIS MD, Ot Z91.81 HISTORY OF FALLING 12/04/2017 KATHIA ELLIS MD Ot 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 12/04/2017 KATHIA ELLIS MD, Ot Z96.612 PRESENCE OF LEFT ARTIFICIAL SHOULDER LORAINE 12/04/2017 KATHIA ELLIS MD Ot Z96.653 PRESENCE OF ARTIFICIAL KNEE JOINT, BILAT 12/04/2017 KATHIA ELLIS MD Ot Z98.84 BARIATRIC SURGERY STATUS 12/04/2017 KATHIA ELLIS MD Ot Z98.890 OTHER SPECIFIED POSTPROCEDURAL STATES 12/04/2017 CALEB COLLINS KATHIA Garay Ot Z99.81 DEPENDENCE ON SUPPLEMENTAL OXYGEN 01/01/2018 [...] Z86.010 PERSONAL HISTORY OF COLONIC POLYPS 01/05/2018 LIZETH COLLINS, MARK Oneill Ot Z98.84 BARIATRIC SURGERY STATUS 04/21/2018 STACY LOWE FASHION INTERN Ot 719.47 JOINT PAIN-ANKLE 04/21/2018 STACY LOWE FASHION INTERN Ot 722.52 LUMB/LUMBOSAC DISC DEGEN 04/21/2018 STACY LOWE FASHION INTERN Ot 736.70 ACQ ANKLE-FOOT DEF NOS 04/21/2018 STACY LOWE FASHION INTERN Ot 737.30 IDIOPATHIC SCOLIOSIS 04/21/2018 STACY LOWE FASHION INTERN Ot 756.12 SPONDYLOLISTHESIS 04/21/2018 ARETHA ARZATE FASHION INTERN Ot 611.71 MASTODYNIA 04/21/2018 ARETHA ARZATE FASHION INTERN Ot 611.79 SYMPTOMS IN BREAST NEC 04/21/2018 ABDELRAHMAN COLLINS, CADEN Guerrero Ot 397.0 TRICUSPID VALVE DISEASE 04/21/2018 CADEN QUICK MD Ot 424.0 MITRAL VALVE DISORDER 04/21/2018 CADEN QUICK MD Ot 786.09 RESPIRATORY ABNORM NEC 04/21/2018 CADEN QUICK MD Ot 786.50 CHEST PAIN NOS 04/21/2018 CADEN QUICK MD Ot 786.09 RESPIRATORY ABNORM NEC 04/21/2018 CADEN QUICK MD Ot 786.50 CHEST PAIN NOS 04/21/2018 ANOOP MIRANDA DO Ot V54.16 AFTERCARE HEALING TRAUMATIC FX LOWER LEG 04/21/2018 STACY LOWEP Ot V76.12 OTH SCREEN MAMMO-MALIGN NEOPLASM OF [place] 04/21/2018 PAULINA COLLINS, LADONNA Ot V72.84 EXAM PRE-OPERATIVE NOS 04/21/2018 Ot 715.91 OSTEOARTHROS NOS-SHLDER 04/21/2018 Ot 715.31 LOC OSTEOARTH NOS-SHLDER 04/21/2018 CAROLINA COLLINS, LEANDRO Reyes Ot V76.12 OTH SCREEN MAMMO-MALIGN NEOPLASM OF [place] 04/21/2018 BILLY CARO APRN Ot R06.02 SHORTNESS OF BREATH 04/21/2018 STACY LOWE FASH[employer] INTERN Ot 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, THORACIC REGION 04/21/2018 STACY LOWE FASHION INTERN Ot M47.896 OTHER SPONDYLOSIS, LUMBAR REGION 04/21/2018 CAROLINA COLLINS, LEANDRO Reyes Ot M41.9 SCOLIOSIS, UNSPECIFIED 04/21/2018 CAROLINA COLLINS, LEANDRO Reyes Ot 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, THORACIC REGION 04/21/2018 HEATHER ROSSI DO Ot M19.011 PRIMARY OSTEOARTHRITIS, RIGHT SHOULDER 04/21/2018 HEATHER ROSSI DO Ot M75.101 UNSP ROTATR-CUFF TEAR/RUPTR OF RIGHT UNA 04/21/2018 HEATHER ROSSI DO Ot M19.011 PRIMARY OSTEOARTHRITIS, RIGHT SHOULDER 04/21/2018 ENID DRUMMOND, HEATHER Frank Ot Z01.811 ENCOUNTER FOR PREPROCEDURAL RESPIRATORY 04/21/2018 ENID DRUMMOND HEATHER Frank Ot Z01.812 ENCOUNTER [...] SYMPTOMS AND SIGNS INVOLVING THE CIR 04/21/2018 ENID DRUMMOND, HEATHER Frank Ot M25.511 PAIN IN RIGHT SHOULDER 04/21/2018 LIZETH COLLINS, MARK Oneill Ot R10.12 LEFT UPPER QUADRANT PAIN 04/21/2018 LIZETH COLLINS, MARK Oneill Ot R10.13 EPIGASTRIC PAIN 04/21/2018 LIZETH COLLINS, MARK Oneill Ot R13.10 DYSPHAGIA, UNSPECIFIED 04/21/2018 LIZETH COLLINS, MARK Oneill Ot Z01.818 ENCOUNTER FOR OTHER PREPROCEDURAL EXAMIN 04/21/2018 LIZETH COLLINS, MARK Oneill Ot Z86.010 PERSONAL HISTORY OF COLONIC POLYPS 04/21/2018 JH BARAHONA APRN Ot E11.9 TYPE 2 DIABETES MELLITUS WITHOUT COMPLIC 04/21/2018 HJ BARAHONA APRN Ot E78.00 PURE HYPERCHOLESTEROLEMIA, UNSPECIFIED 04/21/2018 JH BARAHONA APRN Ot F32.9 MAJOR DEPRESSIVE DISORDER, SINGLE EPISOD 04/21/2018 JH BARAHONA APRN Ot F41.9 ANXIETY DISORDER, UNSPECIFIED 04/21/2018 JH BARAHONA APRN Ot G47.30 SLEEP APNEA, UNSPECIFIED 04/21/2018 JH BARAHONA APRN, Ot J44.9 CHRONIC OBSTRUCTIVE PULMONARY DISEASE, U [...] ALLERGY STATUS TO PENICILLIN 04/24/2018 JH BARAHONA APRN Ot Z88.8 ALLERGY STATUS TO OTH DRUG/MEDS/BIOL SUB 04/24/2018 JH BARAHONA APRN Ot Z90.710 ACQUIRED ABSENCE OF BOTH CERVIX AND UTER 04/24/2018 JH BARAHONA APRN Ot Z98.84 BARIATRIC SURGERY STATUS 04/24/2018 JH BARAHONA FIELD ASSISTANT Ot Z98.890 OTHER SPECIFIED POSTPROCEDURAL STATES 06/28/2018 AIRAM MARVIN MD Ot E11.9 TYPE 2 DIABETES MELLITUS WITHOUT COMPLIC 06/28/2018 AIRAM MARVIN MD Ot E78.00 PURE HYPERCHOLESTEROLEMIA, UNSPECIFIED 06/28/2018 AIRAM MARVIN MD Ot F32.9 MAJOR DEPRESSIVE DISORDER, SINGLE EPISOD 06/28/2018 AIRAM MARVIN MD, Ot F41.9 ANXIETY DISORDER, UNSPECIFIED 06/28/2018 AIRAM MARVIN MD Ot G47.30 SLEEP APNEA, UNSPECIFIED 06/28/2018 AIRAM MARVIN MD, Ot J44.9 CHRONIC OBSTRUCTIVE PULMONARY DISEASE, U 06/28/2018 AIRAM MARVIN MD, Ot K21.9 GASTRO-ESOPHAGEAL REFLUX DISEASE WITHOUT 06/28/2018 AIRAM MARVIN MD Ot M25.532 PAIN IN LEFT WRIST 06/28/2018 AIRAM MARVIN MD Ot M25.552 PAIN IN LEFT HIP 06/28/2018 AIRAM MARVIN MD Ot R40.2142 COMA SCALE, EYES OPEN, SPONTANEOUS, EMR 06/28/2018 AIRAM MARVIN MD, Ot R40.2252 COMA SCALE, BEST VERBAL RESPONSE, ORIENT 06/28/2018 AIRAM MARVIN MD, Ot R40.2362 COMA SCALE, BEST MOTOR RESPONSE, OBEYS C 06/28/2018 AIRAM MARVIN MD Ot S69.92XA UNSP INJURY OF LEFT WRIST, HAND AND FING 06/28/2018 AIRAM MARVIN MD Ot W01.0XXA FALL SAME LEV FROM SLIP/TRIP W/O STRIKE 06/28/2018 AIRAM MARVIN MD Ot Z80.0 FAMILY HISTORY OF MALIGNANT [...] OF ARTIFICIAL KNEE JOINT, BILAT 06/28/2018 AIRAM MARVIN MD, Ot Z98.84 BARIATRIC SURGERY STATUS 06/28/2018 STACY LOWE FASHION INTERN Ot 719.47 JOINT PAIN-ANKLE 06/28/2018 STACY LOWE FASHION INTERN Ot 722.52 LUMB/LUMBOSAC DISC DEGEN 06/28/2018 STACY LOWE FASHION INTERN Ot 736.70 ACQ ANKLE-FOOT DEF NOS 06/28/2018 STACY LOWE FASHION INTERN Ot 737.30 IDIOPATHIC SCOLIOSIS 06/28/2018 STACY LOWE FASHION INTERN Ot 756.12 SPONDYLOLISTHESIS 06/28/2018 ARETHA ARZATE FASHION INTERN Ot 611.71 MASTODYNIA 06/28/2018 ARETHA ARZATE FASHION INTERN Ot 611.79 SYMPTOMS IN BREAST NEC 06/28/2018 CADEN QUICK MD Ot 397.0 TRICUSPID VALVE DISEASE 06/28/2018 CADEN QUICK MD Ot 424.0 MITRAL VALVE DISORDER 06/28/2018 CADEN QUICK MD Ot 786.09 RESPIRATORY ABNORM NEC 06/28/2018 CADEN QUICK MD Ot 786.50 CHEST PAIN NOS 06/28/2018 CADEN QUICK MD Ot 786.09 RESPIRATORY ABNORM NEC 06/28/2018 CADEN QUICK MD Ot 786.50 CHEST PAIN NOS 06/28/2018 GMCAMICOLIN DO ANOOP Eric Ot V54.16 AFTERCARE HEALING TRAUMATIC FX LOWER [...] Ot 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, THORACIC REGION 06/28/2018 HEATHER ROSSI DO Ot M19.011 PRIMARY OSTEOARTHRITIS, RIGHT SHOULDER 06/28/2018 HEATHER ROSSI DO Ot M75.101 UNSP ROTATR-CUFF TEAR/RUPTR OF RIGHT UNA 06/28/2018 HEATHER ROSSI DO Ot M19.011 PRIMARY OSTEOARTHRITIS, RIGHT SHOULDER 06/28/2018 HEATHER ROSSI DO Ot Z01.811 ENCOUNTER FOR PREPROCEDURAL RESPIRATORY 06/28/2018 HEATHER ROSSI DO Ot Z01.812 ENCOUNTER FOR PREPROCEDURAL LABORATORY E 06/28/2018 HEATHER ROSSI DO Ot Z11.2 ENCOUNTER FOR SCREENING FOR OTHER BACTER 06/28/2018 HEATHER ROSSI DO Ot M79.604 PAIN IN RIGHT LEG 06/28/2018 HEATHER ROSSI DO Ot R22.41 LOCALIZED SWELLING, MASS AND LUMP, RIGHT 06/28/2018 ABDELRAHMAN COLLINS, CADEN Guerrero Ot E78.2 MIXED HYPERLIPIDEMIA 06/28/2018 CADEN QUICK MD Ot I10 ESSENTIAL (PRIMARY) HYPERTENSION 06/28/2018 CADEN QUICK MD Ot R06.00 DYSPNEA, UNSPECIFIED 06/28/2018 ABDELRAHMAN COLLINS, CADEN Guerrero Ot R09.89 OTH SYMPTOMS AND SIGNS INVOLVING THE CIR 06/28/2018 ENID DRUMMOND HEATHER Frank Ot M25.511 PAIN IN RIGHT SHOULDER 06/28/2018 LIZETH COLLINS, MARK Oneill Ot R10.12 LEFT UPPER QUADRANT PAIN 06/28/2018 MARK STANLEY MD Ot R10.13 EPIGASTRIC PAIN 06/28/2018 LIZETH COLLINS, MARK Oneill Ot R13.10 DYSPHAGIA, UNSPECIFIED 06/28/2018 LIZETH COLLINS, MARK Oneill Ot Z01.818 ENCOUNTER FOR OTHER PREPROCEDURAL EXAMIN 06/28/2018 MARK STANLEY MD Ot Z86.010 PERSONAL HISTORY OF COLONIC POLYPS 06/28/2018 HEATHER ROSSI DO Ot M25.512 PAIN IN LEFT SHOULDER 06/28/2018 ENID DO, HEATHER Frank Ot M47.892 OTHER SPONDYLOSIS, CERVICAL REGION 06/28/2018 HEATHER ROSSI DO Ot M50.30 OTHER CERVICAL DISC DEGENERATION, UNSP C 06/29/2018 SHAVONNE COLLINS, AIRAM Chandra Ot E11.9 TYPE 2 DIABETES MELLITUS WITHOUT COMPLIC 06/29/2018 AIRAM MARVIN MD Ot E78.00 PURE HYPERCHOLESTEROLEMIA, UNSPECIFIED 06/29/2018 AIRAM MARVIN MD Ot F32.9 MAJOR DEPRESSIVE DISORDER, SINGLE EPISOD 06/29/2018 AIRAM MARVIN MD Ot F41.9 ANXIETY DISORDER, UNSPECIFIED 06/29/2018 AIRAM MARVIN MD Ot G47.30 SLEEP APNEA, UNSPECIFIED 06/29/2018 AIRAM MARVIN MD Ot J44.9 CHRONIC OBSTRUCTIVE PULMONARY DISEASE, U 06/29/2018 AIRAM MARVIN MD Ot K21.9 GASTRO-ESOPHAGEAL REFLUX DISEASE WITHOUT 06/29/2018 AIRAM MARVIN MD Ot M25.532 PAIN IN LEFT WRIST 06/29/2018 [...] TO OT DRUG/MEDS/BIOL SUB 06/29/2018 AIRAM MARVIN MD Ot Z90.710 ACQUIRED ABSENCE OF BOTH CERVIX AND UTER 06/29/2018 AIRAM MARVIN MD Ot Z96.653 PRESENCE OF ARTIFICIAL KNEE JOINT, BILAT 06/29/2018 AIRAM MARVIN MD, Ot Z98.84 BARIATRIC SURGERY STATUS 07/06/2018 HEATHER ROSSI DO Ot M25.512 PAIN IN LEFT SHOULDER 07/06/2018 HEATHER ROSSI DO Ot M47.892 OTHER SPONDYLOSIS, CERVICAL REGION 07/06/2018 HEATHER ROSSI DO Ot M50.30 OTHER CERVICAL DISC DEGENERATION, UNSP C 07/07/2018 CALEB COLLINS, KATHIA Garay Ot E78.5 HYPERLIPIDEMIA, UNSPECIFIED 07/07/2018 KATHIA ELLIS [...] Ot M25.512 PAIN IN LEFT SHOULDER 07/17/2018 ENID DO, HEATHER F Ot M47.892 OTHER SPONDYLOSIS, CERVICAL REGION 07/17/2018 [...] ENCNTR SCREEN MAMMOGRAM FOR MALIGNANT NE 09/04/2018 RACHAEL COLLINS, NEERU Frank Ot Z12.31 ENCNTR SCREEN MAMMOGRAM FOR MALIGNANT NE 10/03/2018 STACY LOWE FASHION INTERN Ot 719.47 JOINT PAIN-ANKLE 10/03/2018 STACY LOWE FASHION INTERN Ot 722.52 LUMB/LUMBOSAC DISC DEGEN 10/03/2018 STACY LOWE FASHION INTERN Ot 736.70 ACQ ANKLE-FOOT DEF NOS 10/03/2018 STACY LOWE FASHION INTERN Ot 737.30 IDIOPATHIC SCOLIOSIS 10/03/2018 STACY LOWE FASHION INTERN Ot 756.12 SPONDYLOLISTHESIS 10/03/2018 ANOOP MIRANDA DO Ot V54.16 AFTERCARE HEALING TRAUMATIC FX LOWER LEG 10/03/2018 STACY LOWE FASHION INTERN Ot V76.12 OTH SCREEN MAMMO-MALIGN NEOPLASM OF [place] 10/03/2018 PAULINA COLLINS, LADONNA Ot V72.84 EXAM PRE-OPERATIVE NOS 10/03/2018 Ot 715.91 OSTEOARTHROS NOS-SHLDER 10/03/2018 Ot 715.31 LOC OSTEOARTH NOS-SHLDER 10/03/2018 CAROLINA COLLINS, LEANDRO Reyes Ot V76.12 OTH SCREEN MAMMO-MALIGN NEOPLASM OF [place] 10/03/2018 BILLY CARO APRN Ot R06.02 SHORTNESS OF BREATH 10/03/2018 STACY LOWE Ot 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, THORACIC REGION 10/03/2018 STACY LOWEP Ot M47.896 OTHER SPONDYLOSIS, LUMBAR REGION 10/03/2018 CAROLINA COLLINS, LEANDRO Reyes Ot M41.9 SCOLIOSIS, UNSPECIFIED 10/03/2018 CAROLINA COLLINS, LEANDRO Reyes Ot 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, THORACIC REGION 10/03/2018 ENID DRUMMOND HEATHER Frank Ot M19.011 PRIMARY OSTEOARTHRITIS, RIGHT SHOULDER 10/03/2018 ENID DRUMMOND HEATHER Frank Ot M75.101 UNSP ROTATR-CUFF TEAR/RUPTR OF RIGHT UNA 10/03/2018 ENID DRUMMOND HEATHER Frank Ot M19.011 PRIMARY OSTEOARTHRITIS, RIGHT SHOULDER 10/03/2018 ENID DRUMMOND HEATHER Frank Ot Z01.811 ENCOUNTER FOR PREPROCEDURAL RESPIRATORY 10/03/2018 ENID DO HEATHER Frank Ot Z01.812 ENCOUNTER FOR PREPROCEDURAL LABORATORY E 10/03/2018 ENID DO HEATHER Frank Ot Z11.2 ENCOUNTER FOR SCREENING FOR OTHER BACTER 10/03/2018 ENID DO, HEATHER Frank Ot M79.604 PAIN IN RIGHT LEG 10/03/2018 ENID DRUMMOND HEATHER Frank Ot R22.41 LOCALIZED SWELLING, MASS AND LUMP, RIGHT 10/03/2018 ABDELRAHMAN COLLINS, CADEN Guerrero Ot E78.2 MIXED HYPERLIPIDEMIA 10/03/2018 ABDELRAHMAN COLLINS, CADEN Guerrero Ot I10 ESSENTIAL (PRIMARY) HYPERTENSION 10/03/2018 CADEN QUICK MD Ot R06.00 DYSPNEA, UNSPECIFIED 10/03/2018 CADEN QUICK MD Ot R09.89 OTH SYMPTOMS AND SIGNS INVOLVING THE CIR 10/03/2018 ENID DRUMMOND HEATHER Frank Ot M25.511 PAIN IN RIGHT SHOULDER 10/03/2018 LIZETH COLLINS, MARK Oneill Ot R10.12 LEFT UPPER QUADRANT PAIN 10/03/2018 LIZETH COLLINS, MARK Oneill Ot R10.13 EPIGASTRIC PAIN 10/03/2018 MARK STANLEY MD Ot R13.10 DYSPHAGIA, UNSPECIFIED 10/03/2018 LIZETH COLLINS, MARK Oneill Ot Z01.818 ENCOUNTER FOR OTHER PREPROCEDURAL EXAMIN 10/03/2018 LIZETH COLLINS, MARK Oneill Ot Z86.010 PERSONAL HISTORY OF COLONIC POLYPS 10/03/2018 NEERU CANO MD, Ot Z12.31 ENCNTR SCREEN MAMMOGRAM FOR MALIGNANT NE 10/12/2018 NEERU CANO MD Ot J44.9 CHRONIC OBSTRUCTIVE PULMONARY DISEASE, U 10/16/2018 NEERU CANO MD, Ot J44.9 CHRONIC OBSTRUCTIVE PULMONARY DISEASE, U 10/31/2018 NEERU CANO MD, Ot J44.9 CHRONIC OBSTRUCTIVE PULMONARY DISEASE, U 11/19/2018 LADONNA GALLARDO MD, Ot Z01.818 ENCOUNTER FOR OTHER PREPROCEDURAL EXAMIN 11/21/2018 LADONNA GALLARDO MD, Ot Z01.818 ENCOUNTER FOR OTHER PREPROCEDURAL EXAMIN 11/21/2018 LADONNA GALLARDO MD Ot E78.00 PURE HYPERCHOLESTEROLEMIA, UNSPECIFIED 11/21/2018 LADONNA GALLARDO MD, Ot F32.9 MAJOR DEPRESSIVE DISORDER, SINGLE EPISOD 11/21/2018 LADONNA GALLARDO MD, Ot F41.9 ANXIETY DISORDER, UNSPECIFIED 11/21/2018 LADONNA GALLARDO MD Ot I10 ESSENTIAL (PRIMARY) HYPERTENSION 11/21/2018 LADONNA GALLARDO MD, Ot I25.10 ATHSCL HEART DISEASE OF [place] CORONARY 11/21/2018 LADONNA GALLARDO MD, Ot K21.0 GASTRO-ESOPHAGEAL REFLUX DISEASE WITH ES 11/21/2018 LADONNA GALLARDO MD, Ot K25.9 GASTRIC ULCER, UNSP ACUTE OR CHRONIC, 11/21/2018 LADONNA GALLARDO MD, Ot K44.9 DIAPHRAGMATIC HERNIA WITHOUT OBSTRUCTION 11/21/2018 LADONNA GALLARDO MD Ot Z79.82 STEAM HAMMER OPERATOR (CURRENT) USE OF ASPIRIN 11/21/2018 LADONNA GALLARDO MD, Ot Z79.899 OTHER STEAM HAMMER OPERATOR (CURRENT) DRUG THERAPY 11/21/2018 LADONNA GALLARDO MD, Ot Z87.891 PERSONAL HISTORY OF NICOTINE DEPENDENCE 11/21/2018 LADONNA GALLARDO MD, Ot 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 11/21/2018 KIDO MD, TAKAAKI Ot Z96.612 PRESENCE OF LEFT ARTIFICIAL SHOULDER LORAINE 11/21/2018 LADONNA GALLARDO MD, Ot Z96.653 PRESENCE OF ARTIFICIAL KNEE JOINT, BILAT 11/22/2018 RACHAEL COLLINS, NEERU Frank Ot J44.9 CHRONIC OBSTRUCTIVE PULMONARY DISEASE, U 11/25/2018 LADONNA GALLARDO MD, Ot Z01.818 ENCOUNTER FOR OTHER PREPROCEDURAL EXAMIN 11/26/2018 LADONNA GALLARDO MD, Ot E78.00 PURE HYPERCHOLESTEROLEMIA, UNSPECIFIED 11/26/2018 LADONNA GALLARDO MD, Ot F32.9 MAJOR DEPRESSIVE DISORDER, SINGLE EPISOD 11/26/2018 LADONNA GALLARDO MD, Ot F41.9 ANXIETY DISORDER, UNSPECIFIED 11/26/2018 LADONNA GALLARDO MD Ot I10 ESSENTIAL (PRIMARY) HYPERTENSION 11/26/2018 LADONNA GALLARDO MD, Ot I25.10 ATHSCL HEART DISEASE OF [place] CORONARY 11/26/2018 LADONNA GALLARDO MD Ot K21.0 GASTRO-ESOPHAGEAL REFLUX DISEASE WITH ES 11/26/2018 LADONNA GALLARDO MD, Ot K25.9 GASTRIC ULCER, UNSP ACUTE OR CHRONIC, 11/26/2018 LADONNA GALLARDO MD, Ot K44.9 DIAPHRAGMATIC HERNIA WITHOUT OBSTRUCTION 11/26/2018 LADONNA GALLARDO MD Ot Z79.82 STEAM HAMMER OPERATOR (CURRENT) USE OF ASPIRIN 11/26/2018 LADONNA GALLARDO MD Ot Z79.899 OTHER HALF-WAY (CURRENT) DRUG THERAPY 11/26/2018 LADONNA GALLARDO MD, Ot Z87.891 PERSONAL HISTORY OF NICOTINE DEPENDENCE 11/26/2018 LADONNA GALLARDO MD Ot 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 11/26/2018 LADONNA GALLARDO MD Ot Z96.612 PRESENCE OF LEFT ARTIFICIAL SHOULDER LORAINE 11/26/2018 LADONNA GALLARDO MD, Ot Z96.653 PRESENCE OF ARTIFICIAL KNEE JOINT, BILAT 11/28/2018 LADONNA GALLARDO MD Ot E78.00 PURE HYPERCHOLESTEROLEMIA, UNSPECIFIED 11/28/2018 LADONNA GALLARDO MD, Ot F32.9 MAJOR DEPRESSIVE DISORDER, SINGLE EPISOD 11/28/2018 LADONNA GALLARDO MD, Ot F41.9 ANXIETY DISORDER, UNSPECIFIED 11/28/2018 LADONNA GALLARDO MD Ot I10 ESSENTIAL (PRIMARY) HYPERTENSION 11/28/2018 LADONNA GALLARDO MD, Ot I25.10 ATHSCL HEART DISEASE OF [place] CORONARY 11/28/2018 LADONNA GALLARDO MD, Ot K21.0 GASTRO-ESOPHAGEAL REFLUX DISEASE WITH ES 11/28/2018 LADONNA GALLARDO MD, Ot K25.9 GASTRIC ULCER, UNSP ACUTE OR CHRONIC, 11/28/2018 LADONNA GALLARDO MD, Ot K44.9 DIAPHRAGMATIC HERNIA WITHOUT OBSTRUCTION 11/28/2018 LADONNA GALLARDO MD, Ot Z79.82 HALF-WAY (CURRENT) USE OF ASPIRIN 11/28/2018 LADONNA GALLARDO MD, Ot Z79.899 OTHER STEAM HAMMER OPERATOR (CURRENT) DRUG THERAPY 11/28/2018 LADONNA GALLARDO MD, Ot Z87.891 PERSONAL HISTORY OF NICOTINE DEPENDENCE 11/28/2018 LADONNA GALLARDO MD, Ot 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 11/28/2018 LADONNA GALLARDO MD, Ot Z96.612 PRESENCE OF LEFT ARTIFICIAL SHOULDER LORAINE 11/28/2018 LADONNA GALLARDO MD, Ot Z96.653 PRESENCE OF ARTIFICIAL KNEE JOINT, BILAT 12/07/2018 BILL LOZOYA Ot E78.5 HYPERLIPIDEMIA, UNSPECIFIED 12/07/2018 BILL LOZOYA Ot I08.0 RHEUMATIC DISORDERS OF BOTH MITRAL AND A 12/07/2018 BILL LOZOYA Ot I10 ESSENTIAL (PRIMARY) HYPERTENSION 12/07/2018 BILL LOZOYA Ot I65.29 OCCLUSION AND STENOSIS OF UNSPECIFIED CA 12/07/2018 BILL LOZOYA Ot R06.09 OTHER FORMS OF DYSPNEA 12/07/2018 BILL LOZOYA Ot R07.9 CHEST PAIN, UNSPECIFIED 12/09/2018 BILL LOZOYA Ot E78.5 HYPERLIPIDEMIA, UNSPECIFIED 12/09/2018 BILL LOZOYA Ot I10 ESSENTIAL (PRIMARY) HYPERTENSION 12/09/2018 BILL LOZOYA Ot R06.00 DYSPNEA, UNSPECIFIED 12/09/2018 BILL LOZOYA Ot R07.9 CHEST PAIN, UNSPECIFIED Procedures Code Description [place] [address] ROUTINE VENIPUNCTURE 10/29/2012 10677 XRAY FOOT RIGHT COMP MIN 3 VIEWS 10/29/2012 Podiatry Tisha Marley 10/29/2012 22293 UA LONG DIP 10/29/2012 14277 URINE DRUG SCREEN (IN-HOUSE ) 10/29/2012 29178 CBC 10/29/2012 40526 CRP 10/30/2012 KEV COMBS 12/18/2012 44031 JOINT INJECTION- INTERMEDIATE JOINT 02/07/2013 96565 ROUTINE VENIPUNCTURE 02/25/2013 25517 A1C (IN-HOUSE) 02/25/2013 19565 CMP 02/25/2013 33208 LIPID PANEL 02/25/[id number] GFR CALC (RESULT ONLY) 02/25/2013 05544 TSH 02/25/2013 70057 MAMMOGRAM DX, ROSITA 03/11/2013 87486 URINE DRUG SCREEN (IN-HOUSE ) 07/03/2013 G0008 FLU ADMINISTRATION ( MEDICARE ONLY) 07/03/2013 [id number] REPLACEMENT OF L SHOULDER JT WITH SYNTH [...] culture - 12/01/17 15:57 Bacterial blood culture [facility] Influenza virus A and B antigen detection - 12/01/17 17:48 FLU RESULT NEGATIVE FOR INFLUENZA A AND B ANTIGENS BY [facility] Complete blood count (CBC) with automated white [...] 109 mmol/L 98-107 Carbon dioxide 23 mmol/L -32 Serum or plasma anion gap determination (moles/volume) [...] 106 mmol/L 98-107 Carbon dioxide 23 mmol/L -32 Serum or plasma anion gap determination (moles/volume) [...] plasma albumin measurement (mass/volume) 2.9 g/dL 3.2-4.5 PDM - 09 PANEL (PROFILE 1) - 04/05/18 10:03 Creatinine [...] 7-25 CREATININE 0.75 mg/dL 0.60-0.93 eGFR NON-AFR. CUBAN 80 mL/min/1.73m2 > OR=60 eGFR 93 mL/min/1.73m2 [...] Status Pt. Type Provider Facility Loc./Unit Complaint [id number] 07/03/2013 10:48:00 07/03/2013 23:59:59 CLS Outpatient ARETHA ARZATE APRN [id number] 07/03/2013 10:48:00 07/03/2013 23:59:59 CLS Outpatient ARETHA ARZATE APRN [id number] 01/17/2013 12:22:00 01/17/2013 23:59:59 CLS Outpatient [id number] 12/13/2012 12:05:00 12/13/2012 23:59:59 CLS Outpatient GABRIELLE PANCHAL DO [id number] 11/29/2012 10:17:00 11/29/2012 23:59:59 CLS Outpatient [id number] 10/29/2012 12:20:00 10/29/2012 23:59:59 CLS Outpatient ARETHA ARZATE APRN [id number] 09/27/2012 09:04:00 09/27/2012 23:59:59 CLS Outpatient ROSITA PACHECO MD 94 08/15/2012 10:23:00 08/15/2012 23:59:59 CLS Outpatient ARETHA ARZATE APRN [id number] 03/29/2013 13:29:00 Document Registration [id number] 03/07/2013 12:28:00 Document Registration [id number] 02/25/2013 14:10:00 Document Registration [id number] 02/07/2013 13:42:00 Document Registration [id number] 12/03/2018 07:59:00 12/03/2018 23:59:59 CLS Outpatient BILL LOZOYA [facility] CARD CAROTID ARTERY STENOSIS [id number] 11/21/2018 09:04:00 11/21/2018 13:00:00 DIS Outpatient LADONNA GALLARDO MD [facility] ENDO ABD PAIN/N V/REFLUX [id number] 11/19/2018 05:54:00 11/19/2018 15:05:00 DIS Outpatient LADONNA GALLARDO MD [facility] PREOP EGD [id number] 11/06/2018 15:57:00 11/06/2018 23:59:59 CLS Outpatient BILL LOZOYA [facility] CARD CAROTID ARTERY STENOSIS [id number] 09/25/2018 14:32:00 09/25/2018 23:59:59 CLS Preadmit NEERU CANO MD [facility] RAD LUMBAR RADICULOPATHY M54.16 [id number] 08/28/2018 13:00:00 08/28/2018 23:59:59 CLS Outpatient NEERU CANO MD [facility] RT COPD [id number] 08/28/2018 12:39:00 08/28/2018 23:59:59 CLS Preadmit NEERU CANO MD [facility] RAD CHRONIC OBSTRUCTIVE PULMONARY DISEASE [id number] 08/07/2018 08:20:00 08/07/2018 23:59:59 CLS Outpatient NEERU CANO MD [facility] RAD BREAST CANCER SCREENING [id number] 07/24/2018 13:00:00 07/24/2018 13:00:00 CAN Preadmit HEATHER ROSSI DO [facility] REHAB LT SHOULDER PAIN CERVICAL SPONDYLOSIS CERVICAL DDD [id number] 07/05/2018 13:03:00 07/23/2018 13:24:00 DIS Outpatient HEATHER ROSSI DO [facility] REHAB LT SHOULDER PAIN CERVICAL SPONDYLOSIS CERVICAL DDD [id number] 07/05/2018 16:25:00 07/07/2018 14:30:00 DIS Inpatient CALEB COLLINS, KATHIA Garay [facility] 4TH HYPOXIA [id number] 06/27/2018 22:48:00 06/28/2018 01:43:00 DIS Emergency AIRAM MARVIN MD [facility] ER FALL/L SIDE PAIN [id number] 04/21/2018 16:00:00 04/21/2018 18:15:00 DIS Emergency JH BARAHONA APRN [facility] ER HIP PAIN,FALL,NECK PAIN, LOSS OF CONSCIOUSNESS [id number] 01/05/2018 07:50:00 01/05/2018 12:05:00 DIS Outpatient MARK STANLEY MD [facility] ENDO DYSPHAGIA/EPIGASTRIC LUQ PAIN/HX OF COLON POLYP [id number] 01/01/2018 05:36:00 01/01/2018 15:34:00 DIS Outpatient MARK STANLEY MD [facility] PREOP COLONOSCOPY/EGD [id number] 12/01/2017 18:00:00 12/04/2017 15:00:00 DIS Inpatient KATHIA ELLIS MD [facility] 4TH LLL PNA [id number] 11/21/2017 05:49:00 11/21/2017 23:59:59 CLS Outpatient MARK STANLEY MD [facility] PREOP COLONOSCOPY/EGD [id number] 06/30/2016 12:48:00 06/30/2016 23:59:59 CLS Outpatient HEATHER ROSSI DO [facility] RAD RT SHOULDER PAIN [id number] 05/30/2016 12:59:00 05/30/2016 15:27:00 DIS Emergency FRANCY VERDIN DO [facility] ER RIGHT SHOULDER PAIN [id number] 03/09/2016 12:28:00 04/04/2016 11:55:00 DIS Outpatient HEATHER ROSSI DO [facility] REHAB SHOULDER PAIN [id number] 02/15/2016 13:46:00 02/15/2016 23:59:59 CLS Outpatient ABDELRAHMAN COLLINS, CADEN Guerrero [facility] CARD DYSPNEA ON EXERTION,HTN, HLP,CAROTID ARTERY BRUIT [id number] 01/27/2016 11:28:00 01/27/2016 23:59:59 CLS Outpatient HEATHER ROSSI DO [facility] RAD RIGHT LEG PAIN AND SWELLING [id number] 12/25/2015 16:17:00 12/29/2015 11:45:00 DIS Inpatient LEANDRO FIGUEROA MD [facility] 4TH ACUTE GASTROINTERITIS, DEHYDRATION [id number] 12/08/2015 05:46:00 12/10/2015 11:00:00 DIS Inpatient HEATHER ROSSI DO [facility] 4TH RIGHT SHOULDER OSTEOARTHRITIS [id number] 11/25/2015 10:04:00 11/25/2015 23:59:59 CLS Outpatient ENID DRUMMOND HEATHER Frank [facility] PREOP RIGHT SHOULDER OSTEOARTHRITIS [id number] 11/17/2015 17:35:00 11/17/2015 19:14:00 DIS Emergency SHAVONNE COLLINS, AIRAM Chandra [facility] ER RT ARM PAIN,FOOT PAIN [id number] 10/21/2015 14:49:00 10/21/2015 18:54:00 DIS Emergency MATT HIDALGO MD [facility] ER POSS CVA [id number] 10/06/2015 09:33:00 10/06/2015 23:59:59 CLS Outpatient HEATHER ROSSI DO [facility] RAD RTC TEAR RT SHOULDER [id number] 10/01/2015 06:51:00 10/01/2015 23:59:59 CLS Outpatient LEANDRO FIGUEROA MD [facility] RAD BACK PAIN POST FALL [id number] 09/11/2015 13:44:00 09/11/2015 23:59:59 CLS Outpatient STACY LOWE [facility] RAD THORACIC AND LUMBAR BACK PAIN [id number] 09/11/2015 13:37:00 09/11/2015 23:59:59 CLS Outpatient BILLY CARO APRN [facility] RT SOB [id number] 08/04/2015 14:51:00 08/05/2015 17:43:00 DIS Inpatient ELIO LEA DO [facility] ICU HEAD INJURY W/ CONCUSSION INTRACTABLE NAUSEA [id number] 04/28/2015 12:39:00 05/11/2015 11:47:00 DIS Outpatient HEATHER ROSSI DO [facility] REHAB S/P L TOTAL SHOULDER [id number] 04/27/2015 09:47:00 04/27/2015 23:59:59 CLS Outpatient LEANDRO FIGUEROA MD [facility] RAD SCREENING [id number] 10/14/2014 12:52:00 10/14/2014 16:09:00 DIS Emergency FRANCY VERDIN DO [facility] ER POSSIBLE STROKE [id number] 08/11/2014 09:44:00 09/16/2014 15:11:00 DIS Outpatient STACY LOWE [facility] REHAB R ANKLE AND BACK PAIN [id number] 08/06/2014 07:52:00 08/06/2014 12:05:00 DIS Outpatient LADONNA GALLARDO MD [facility] SDC ABD PAIN RIGHT LOWER QUADRANT [id number] 07/31/2014 07:22:00 07/31/2014 23:59:59 CLS Outpatient LADONNA GALLARDO MD [facility] PREOP ABD PAIN RIGHT LOWER QUADRANT [id number] 05/09/2014 11:01:00 05/09/2014 23:59:59 CLS Outpatient STACY LOWE [facility] RAD BACK PAIN,R ANKLE PAIN [id number] 04/17/2014 14:28:00 04/17/2014 23:59:59 CLS Outpatient STACY LOWE [facility] RAD SCREENING [id number] 04/11/2014 17:46:00 04/11/2014 20:21:00 DIS Emergency FRANCY VERDIN DO [facility] ER FELL 04/09/14 [id number] 03/13/2014 13:52:00 03/15/2014 12:00:00 DIS Inpatient ANOOP MIRANDA DO [facility] CSD CHEST PAIN [id number] 02/11/2014 13:48:00 02/11/2014 23:59:59 CLS Outpatient [id number] 12/19/2013 13:10:00 12/19/2013 23:59:59 CLS Outpatient [id number] 08/09/2013 11:36:00 08/09/2013 23:59:59 CLS Outpatient ANOOP MIRANDA DO [facility] RAD HX OF R ANKLE FX,NAUN REMOVAL [id number] 07/01/2013 05:27:00 07/01/2013 09:10:00 DIS Emergency MATT HIDALGO MD [facility] ER FALL [id number] 04/22/2013 12:55:00 05/01/2013 14:42:00 DIS Outpatient KEV PEREZ FASHION INTERN [facility] REHAB L SHOULDER IMPINGEMENT/ R ELBOW LATERAL EPICONDYLIT [id number] 03/19/2013 12:02:00 03/19/2013 23:59:59 CLS Outpatient CADEN QUICK MD [facility] RAD CP,DYSPNEA [id number] 03/13/2013 13:10:00 03/13/2013 23:59:59 CLS Outpatient CADEN QUICK MD [facility] CARD CP,DYSPNEA [id number] 02/27/2013 14:40:00 02/27/2013 23:59:59 CLS Outpatient ARETHA ARZATE [facility] RAD SCREENING [id number] 12/15/2018 14:00:00 PEN Preadmit CADEN QUICK MD [facility] CATH ABN STRESS [id number] 12/11/2018 14:54:00 ACT Emergency MATT HIDALGO MD [facility] ER LOW BP,BLURRED VISION,FALLING [id number] 02/18/2015 09:30:00 Document Registration [id number] 02/18/2015 09:30:00 Document Registration [id number] 12/31/2014 09:04:00 Document Registration [id number] 12/15/2014 15:26:00 Document Registration [id number] 12/19/2012 12:07:00 Document Registration [id number] 12/05/2012 00:17:00 Document Registration [id number] 09/15/2012 10:56:00 Document Registration [id number] 01/18/2012 11:37:00 Document Registration [id number] 11/01/2011 11:28:00 Document Registration [id number] 10/20/2011 15:54:00 Document Registration [id number] 09/05/2011 10:22:00 Document Registration [id number] 07/06/2011 19:52:00 Document Registration [id number] 06/08/2011 15:24:00 Document Registration [id number] 03/27/2011 15:09:00 Document Registration [id number] 03/23/2011 16:19:00 Document Registration [id number] 12/22/2010 09:11:00 Document Registration [id number] 09/01/2010 10:32:00 Document Registration [id number] 05/03/2010 15:07:00 Document Registration [id number] 04/21/2010 14:07:00 Document Registration [id number] 08/04/2015 10:42:13 ACT Document Registration [id number] 09/19/2018 08:20:00 09/19/2018 23:59:59 [facility] RACHAEL COLLINS, NEERU [facility] [id number] 08/15/2018 11:50:00 Document Registration [id number] 05/04/2018 10:20:00 Document Registration [id number] 04/05/2018 09:20:00 Document Registration
--- NOTE | 2018-12-11 15:17 | NUR ---
1000NS STARTED IN R EJ
[2018-12-11] MEDS ORDERED: NS IV 1000 ML 1,000 ML IV ONE ×2 (15:27→17:44)
--- NOTE | 2018-12-11 15:36 | ED Cardiac General ---
History of Present Illness General Chief Complaint: Dizziness/Syncope Stated Complaint: LOW BP,BLURRED VISION,FALLING Nursing Triage Note: pt arrived POV with sister in law with c/o being very dizzy and have fallen today. her balance seems to be off Source: patient Exam Limitations: clinical condition (JULISSAESAULAKE Marti STUDENT) History of Present Illness Date Seen by Provider: Dec 11, 2018 Time Seen by Provider: 15:13 Initial Comments 73 y/o F presented for hypotension sent over from [facility] via private vehicle. She was at the clinic for a therapy group session and was dizzy at the clinic. She was seen at the walk-in there for the dizziness and a prior fall this morning. While at the clinic, she fell again into the wall and hit her head. She was found to have a blood pressure of 68/38 at the clinic. She did take morphine and oxy today for her chronic pain. On triage, she had a SBP in 80s. She denies chest pain. No other symptoms at this time. Timing/Duration: 1-3 hours Severity: mild Activities at Onset: rest Modifying Factors: improves with lying down Associated Systoms: No Chest Pain, No Cough, No Fever/Chills, No Nausea/ Vomiting, No Shortness of Air, No Syncope; Weakness, Other (dizziness) (LAKE CODY STUDENT) Timing/Duration: 1-3 hours Severity: mild, moderate Activities at Onset: rest Modifying Factors: improves with lying down; worse with movement NTG SL PIERCER: No ASA po PIERCER: No Associated Systoms: No Chest Pain, No Cough, No Nausea/Vomiting, No Shortness of Air; Weakness (MATT HIDALGO MD) Allergies and Home Medications Allergies Coded Allergies: Penicillins (Unverified Allergy, Mild, PT DOES NOT REMEMBER RXN > 30 YRS, 04/21/18) Pt has received Cefepime & Ceftriaxone w/o issue nalbuphine (Unverified Allergy, Mild, Pt has received Lortab & Morphine in the past w/o issue, 11/21/18) Home Medications Albuterol Sulfate 18 Gm Hfa.aer.ad, 2 PUFF INH QID PRN for WHEEZING, (Reported) Cetirizine HCl 10 Mg Tablet, 10 MG PO DAILY PRN for DRAINAGE, (Reported) Cyclobenzaprine HCl 5 Mg Tablet, 5 MG PO BID PRN for MUSCLE SPASMS, (Reported) Docusate Sodium 100 Mg Capsule, 100 MG PO DAILY, (Reported) Duloxetine HCl 60 Mg Capsule.dr, 120 MG PO DAILY, (Reported) Ergocalciferol (Vitamin D2) 50,000 Unit Capsule, 50,000 UNIT PO WEEK, (Reported) Escitalopram Oxalate 20 Mg Tablet, 20 MG PO 1800, (Reported) Ezetimibe 10 Mg Tablet, 10 MG PO DAILY, (Reported) Ferrous Sulfate 325 Mg Tablet, 325 MG PO TIDWM, (Reported) Furosemide 40 Mg Tablet, 40 MG PO DAILY, (Reported) Gabapentin 600 Mg Tablet, 600 MG PO TID, (Reported) Mirtazapine 45 Mg Tablet, 45 MG PO HS, (Reported) Morphine Sulfate 30 Mg Tablet.er, 30 MG PO Q12H, (Reported) Oxycodone HCl/Acetaminophen 1 Each Tablet, 1 TAB PO TID PRN for PAIN- BREAKTHROUGH, (Reported) Oxycodone HCl/Acetaminophen 1 Each Tablet, 1 EACH PO TID PRN for PAIN-MODERATE, (Reported) Pantoprazole Sodium 40 Mg Tablet.dr, 40 MG PO DAILY, (Reported) Potassium Chloride 20 Meq Tablet.er, 20 MEQ PO 5 DAYS A WEEK, (Reported) STOP DATE IS : 12/23/2018 Quetiapine Fumarate 50 Mg Tablet, 50 MG PO HS, (Reported) Rosuvastatin Calcium 10 Mg Tablet, 10 MG PO DAILY, (Reported) Sodium Chloride/Aloe Vera 14.1 Gm Gel..gram., NS DAILY PRN for DRY NOSE, ( Reported) Vitamin B Complex & Vit C No.4 150 Mg Tablet, 150 MG PO DAILY, (Reported) Vitamin E Acetate 400 Unit Capsule, 400 UNIT PO DAILY, (Reported) Patient Home Medication List Home Medication List Reviewed: Yes (LAKE VARELA) Home Medication List Reviewed: Yes (MATT HIDALGO MD) Review of Systems Review of Systems Constitutional: No chills, No diaphoresis; dizziness; No fever; weakness, other (fell twice today) EENTM: No Blurred Vision, No Nose Congestion Respiratory: Denies Cough, Denies Shortness of Air, Denies Wheezing Cardiovascular: Denies Chest Pain, Denies Syncope Gastrointestinal: Denies Abdominal Pain, Denies Diarrhea, Denies Nausea, Denies Vomiting Genitourinary: Denies Burning, Denies Frequency Musculoskeletal: back pain (chronic) Skin: No pruritus, No rash Psychiatric/Neurological: Denies Headache, Denies Numbness; Weakness (LAKE CODY STUDENT) Constitutional: weakness, other (fell twice today) Respiratory: No Symptoms Reported Cardiovascular: See HPI, Lightheadedness Gastrointestinal: Abdominal Pain; Denies Vomiting Genitourinary: No Symptoms Reported Musculoskeletal: back pain (chronic), joint pain, muscle pain Skin: change in color, lesions (MATT HIDALGO MD) All Other Systems Reviewed Negative Unless Noted: Yes (left elbow) (MATT HIDALGO MD) Past Qkwzlss-Qleuxw-Iaxxmj Hx Past Med/Social Hx: Reviewed Nursing Past Med/Soc Hx (MATT HIDALGO MD) Patient Social History Alcohol Use: Denies Use Recreational Drug Use: No Smoking Status: Never a Smoker Former Smoker, Quit: Aug 05, 1992 Recent Foreign Travel: No Contact w/Someone Who Travel: No Recent Infectious Disease Expo: No Recent Hopitalizations: No (LAKE VARELA STUDENT) Immunizations Up To Date Tetanus Booster (TDap): More than 5yrs PED Vaccines UTD: No Date of Pneumonia Vaccine: Oct 01, 2010 Date of Influenza Vaccine: Aug 02, 2018 (LAKE VARELA) Seasonal Allergies Seasonal Allergies: Yes (LAKE VARELA) Past Medical History Surgeries: Yes (RIGHT ANKLE, BILAT TOTAL KNEE, GASTRIC BYPASS, L ROTATOR CUFF REPAIR 01/04,) Gallbladder, Hysterectomy, Orthopedic Respiratory: Yes ( mild sleep apnea-) Sleep Apnea, COPD Currently Using CPAP: No Currently Using BIPAP: No Cardiac: Yes High Cholesterol Neurological: Yes (fell from a three story building in concussion, concusion from fall) TIA Reproductive Disorders: No Female Reproductive Disorders: Menstrual Problems 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 Genitourinary: No Gastrointestinal: Yes (hepatitis in 1979 not sure which type) Colitis, Gastroesophageal Reflux, Chronic Constipation, Hepatitis Musculoskeletal: Yes (, broken back ) Arthritis, Back Injury, Chronic Back Pain Endocrine: No Diabetes, Non-Insulin dep HEENT: Yes Cataract Loss of Vision: Denies Hearing Impairment: Hard of Hearing Cancer: Yes (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) What Type of Treatment Did You: Surgical Intervention Psychosocial: Yes Anxiety, Depression Integumentary: No Blood Disorders: Yes (ANEMIA) Adverse Reaction/Blood Tranf: No (LAKE VARELA STUDENT) Family Medical History Reviewed Nursing Family Hx (MATT HIDALGO MD) Alzheimer's disease (MOTHER) Cancer (FATHER LIVER CA SISTER CA) Cardiovascular disease G8 SISTER Dementia FH: lupus (SISTER) Family history: Cardiovascular disease Family history: Diabetes mellitus Family history: Hypertension Heart disease Heart Disease, Cancer, Hypertension, Psychiatric Problems, Vascular Disease (LAKE VARELA STUDENT) Physical Exam Vital Signs Vital Signs - First Documented 12/11/18 12/11/18 14:58 15:58 Temp 97.6 Pulse 97 Resp 18 B/P (MAP) 58/43 (48) Pulse Ox 94 O2 Delivery Room Air (MATT HIDALGO MD) Vital Signs Capillary Refill : Less Than 3 Seconds (LAKE VARELA STUDENT) Height, Weight, BMI Height: 4'10.00" Weight: 192lbs. 0.0oz. 87.426049ei; 40.1 BMI Method:Stated General Appearance: WD/WN, Chronically ill HEENT: PERRL/EOMI, TMs Normal, Normal ENT Inspection, Pharynx Normal, Moist Mucous Membranes Neck: Full Range of Motion, Normal Inspection, Supple Respiratory: Lungs Clear, Normal Breath Sounds, No Accessory Muscle Use, No Respiratory Distress, Other (right chest wall tenderness ) Cardiovascular: Regular Rate, Rhythm, No Edema, No Gallop, No JVD, No Murmur, Normal Peripheral Pulses Gastrointestinal: Normal Bowel Sounds, No Organomegaly, Soft, Tenderness ( right upper quadrant tenderness ) Extremity: Normal Capillary Refill, Non Tender, No Calf Tenderness, No Pedal Edema Neurologic/Psychiatric: Alert, Oriented x3, No Motor/Sensory Deficits, Normal Mood/Affect Skin: Warm/Dry, Ecchymosis (over right eyelid and right lateral hip/thigh), Other (skin tear to the left elbow with non-active bleeding) (LAKE VARELA STUDENT) General Appearance: WD/WN, Chronically ill HEENT: PERRL/EOMI, Pharynx Normal Neck: Full Range of Motion, Normal Inspection, Supple Respiratory: Lungs Clear, Normal Breath Sounds Cardiovascular: No Edema, No Murmur, Tachycardia Extremity: Normal Capillary Refill, No Calf Tenderness, No Pedal Edema Neurologic/Psychiatric: Alert, Oriented x3 Skin: Warm/Dry, Ecchymosis (over right eyelid and right lateral hip/thigh), Other (skin tear to the left elbow with non-active bleeding) (MATT HIDALGO MD) Focused Exam Lactate Level 12/11/18 15:52: Lactic Acid Level 1.37 (MATT HIDALGO MD) Lactic Acid Level Laboratory Tests Test 12/11/18 15:52 Lactic Acid Level 1.37 MMOL/L (0.50-2.00) (MATT HIDALGO MD) Progress/Results/Core Measures Results/Orders Lab Results Laboratory Tests Test 12/11/18 15:15 12/11/18 15:52 12/11/18 16:55 Range/Units White Blood Count 12.3 H 4.3-11.0 10^3/uL Red Blood Count 4.35 4.35-5.85 10^6/uL Hemoglobin 13.0 11.5-16.0 G/DL Hematocrit 40 35-52 % Mean Corpuscular Volume 91 80-99 FL Mean Corpuscular Hemoglobin 30 25-34 PG Mean Corpuscular Hemoglobin Concent 33 32-36 G/DL Red Cell Distribution Width 15.9 H 10.0-14.5 % Platelet Count 308 130-400 10^3/uL Mean Platelet Volume 10.0 7.4-10.4 FL Neutrophils (%) (Auto) 67 42-75 % Lymphocytes (%) (Auto) 22 12-44 % Monocytes (%) (Auto) 10 0-12 % Eosinophils (%) (Auto) 1 0-10 % Basophils (%) (Auto) 0 0-10 % Neutrophils # (Auto) 8.3 H 1.8-7.8 X 10^3 Lymphocytes # (Auto) 2.7 1.0-4.0 X 10^3 Monocytes # (Auto) 1.3 H 0.0-1.0 X 10^3 Eosinophils # (Auto) 0.1 0.0-0.3 10^3/uL Basophils # (Auto) 0.0 0.0-0.1 10^3/uL Sodium Level 132 L 135-145 MMOL/L Potassium Level 3.9 3.6-5.0 MMOL/L Chloride Level 98 98-107 MMOL/L Carbon Dioxide Level 23 21-32 MMOL/L Anion Gap 11 5-14 MMOL/L Blood Urea Nitrogen 20 H 7-18 MG/DL Creatinine 1.77 H 0.60-1.30 MG/DL Estimat Glomerular Filtration Rate 28 BUN/Creatinine Ratio 11 Glucose Level 100 70-105 MG/DL Calcium Level 8.4 L 8.5-10.1 MG/DL Corrected Calcium 9.3 8.5-10.1 MG/DL Magnesium Level 1.8 1.8-2.4 MG/DL Total Bilirubin 0.7 0.1-1.0 MG/DL Aspartate Amino Transf (AST/SGOT) 97 H 5-34 U/L Alanine Aminotransferase (ALT/SGPT) 27 0-55 U/L Alkaline Phosphatase 173 H 40-136 U/L B-Type Natriuretic Peptide 32.1 <100.0 PG/ML Total Protein 5.6 L 6.4-8.2 GM/DL Albumin 2.9 L 3.2-4.5 GM/DL Amylase Level 33 25-125 U/L Lipase 18 8-78 U/L Lactic Acid Level 1.37 0.50-2.00 MMOL/L Urine Color YELLOW Urine Clarity CLEAR Urine pH 5 5-9 Urine Specific [place] 1.010 L 1.016-1.022 Urine Protein NEGATIVE NEGATIVE Urine Glucose (UA) NEGATIVE NEGATIVE Urine Ketones NEGATIVE NEGATIVE Urine Nitrite NEGATIVE NEGATIVE Urine Bilirubin 2+ H NEGATIVE Urine Urobilinogen 1 NORMAL MG/DL Urine Leukocyte Esterase 3+ H NEGATIVE Urine RBC (Auto) NEGATIVE NEGATIVE Urine RBC NONE /HPF Urine WBC 25-50 H /HPF Urine Squamous Epithelial Cells 5-10 /HPF Urine Crystals NONE /LPF Urine Bacteria TRACE /HPF Urine Casts PRESENT /LPF Urine Hyaline Casts >50 H /LPF Urine Mucus NEGATIVE /LPF Urine Culture Indicated YES (MATT HIDALGO MD) My Orders Orders - MATT HIDALGO MD Saline Lock/Iv-Start (12/11/18 15:27) Ekg Tracing (12/11/18 15:27) Monitor-Rhythm Ecg Trace Only (12/11/18 15:27) Amylase (12/11/18 15:27) BNP (12/11/18 15:27) Cbc With Automated Diff (12/11/18 15:27) Comprehensive Metabolic Panel (12/11/18 15:27) Lipase (12/11/18 15:27) Magnesium (12/11/18 15:27) Ua Culture If Indicated (12/11/18 15:27) Saline Lock/Iv-Start (12/11/18 15:27) Ns Iv 1000 Ml (Sodium Chloride 0.9%) (12/11/18 15:27) Chest 1 View, Ap/Pa Only (12/11/18 15:27) Ct Head/Cervical Spine Wo (12/11/18 15:27) Lactic Acid Analyzer (12/11/18 15:31) Blood Culture (12/11/18 15:31) Ct Chest/Abdomen/Pelvis Wo (12/11/18 16:06) Urine Culture (12/11/18 16:55) Ns Iv 1000 Ml (Sodium Chloride 0.9%) (12/11/18 17:37) Saline Lock/Iv-Start (12/11/18 17:44) Ns Iv 1000 Ml (Sodium Chloride 0.9%) (12/11/18 17:44) (MATT HIDALGO MD) Medications Given in ED Current Medications Medications Dose Ordered Sig/Anila Route Start Time Stop Time Status Last Admin Dose Admin Acetaminophen 1,000 mg ONCE ONCE PO 12/11/18 18:30 12/11/18 18:31 DC 12/11/18 18:25 1,000 MG Sodium Chloride 1,000 ml @ 0 mls/hr Q0M ONCE IV 12/11/18 15:27 12/11/18 15:29 DC 12/11/18 15:15 1,000 MLS/HR Sodium Chloride 1,000 ml @ ud STK-MED ONCE .ROUTE 12/11/18 17:37 12/11/18 17:42 DC 12/11/18 17:43 1,000 MLS/HR (MATT HIDALGO MD) Vital Signs/I&O 12/11/18 12/11/18 12/11/18 12/11/18 14:58 15:58 17:04 18:33 Temp 97.6 Pulse 97 83 82 71 Resp 18 18 18 B/P (MAP) 58/43 (48) 93/67 (76) 104/65 (78) 122/78 (93) Pulse Ox 94 94 94 O2 Delivery Room Air Room Air Room Air (MATT HIDALGO MD) Blood Pressure Mean: 48 Progress Progress Note : Progress Note I have seen and evaluated the patient and agree with above except as indicated. Have directed the plan of care. Patient is here with hypotension. She does take chronic pain medicine and has had her pain. Denies nausea or vomiting. Denies chest pain or breathing problems but does have the chronic multiple joint pain. Reports 2 recent falls including last night at home and today at the clinic. Does have bruising to the right forehead from that. Complains of right upper quadrant bowel pain. IV 2, labs and UA ordered. CT head and neck as well as chest, abdomen and pelvis all without due to patient's creatinine level. Chest x -ray ordered. Normal saline 1 L bolus. Monitor patient. Repeat normal saline 1 L bolus for persistent intermittent hypotension. Patient denies any complaints except for her chronic bone pain and mild headache. 1800: Tylenol 1 g by mouth and ice pack given. Blood pressure has improved. Monitor patient. 1905: Patient still improved but did have blood pressure 90/67 with standing. She was a little unsteady but states that's normal for her. When sitting her blood pressure returned to 120 systolic. Patient would benefit from observation admission but she would like to go home. We will give another 500 mL normal saline bolus and get her something to eat. We will recheck blood pressure and stability after that. If possible then discharged home will be entertained. Rocephin 1 g IV for questionable urinary tract infection is given. Care transferred to Dr. Lane pending outcome of blood pressure stability. Monitor patient. (MATT HIDALGO MD) Progress Note : Time: 21:27 Progress Note Care of this patient was assumed from Dr. Hidalgo. Patient still had marginal blood pressures standing after 2 L of IV fluid. Systolic blood pressure was 90. She was given another 500 mL normal saline bolus and allowed to eat. Unfortunately, she vomited when attempting to eat. Zofran was given and patient was then able to eat. Standing blood pressure after the 500 mL normal saline bolus was 86. At this point I do not feel comfortable with heard dismissing home. We discussed admission again. I discussed the case with Dr. Montgomery who is agreeable to admission on cardiac stepdown status. Patient did receive a gram of Rocephin for urinary tract infection. Blood cultures were drawn earlier. Patient states she does feel well at this time and is not lightheaded upon standing. I really feel her orthostatic hypotension is likely secondary to volume status rather than infection. However, close observation is warranted. She will have hourly vital signs 4 upon admission. Patient has trouble with nausea and vomiting over the past week or two. She has had gastric bypass in the past. Patient requests a DO NOT RESUSCITATE status. (AIRAM MARVIN MD) Initial ECG Impression Date: Dec 11, 2018 Initial ECG Impression Time: 15:13 Initial ECG Rate: 92 Initial ECG Rhythm: Normal Sinus Comment Sinus rhythm. Normal axis. No evidence of STEMI. Similar EKG in comparison with 12/25/15. Interpreted by Dr. Hidalgo. (LAKE VARELA STUDENT) Diagnostic Imaging Diagonstic Imaging: Xray Plain Films/CT/US/NM/MRI: chest Comments [facility] [place] [place] NAME: [facility] E [facility] REC#: [id number] PT STATUS: REG ER : 1945 PHYSICIAN: MATT HIDALGO MD ADMIT DATE: 12/11/18/ER Draft Date of Exam:12/11/18 CHEST 1 VIEW, AP/PA ONLY INDICATION: Dizziness and falls. TIME OF EXAM: 3:43 PM COMPARISON: Correlation is made with prior exam from 07/05/2018. FINDINGS: The heart size is stable. The lungs are clear. The pulmonary vascularity is normal. No infiltrate, effusion or pneumothorax is identified. There are postoperative changes of bilateral shoulder arthroplasties. IMPRESSION: No acute cardiopulmonary processes detected. Dictated on workstation # [id number] Dict: 12/11/18 1549 Trans: 12/11/18 1553 [id number] Interpreted by: SOPHY WHITEHEAD MD Electronically signed by: (LAKE VARELA STUDENT) Diagonstic Imaging: CT Plain Films/CT/US/NM/MRI: c-spine, head Comments [facility] [place] [place] NAME: [facility]AR [facility] REC#: [id number] PT STATUS: REG ER : 1945 PHYSICIAN: MATT HIDALGO MD ADMIT DATE: 12/11/18/ER Draft Date of Exam:12/11/18 CT HEAD/CERVICAL SPINE WO CLINICAL INDICATION: Patient fell face forward striking the lateral canthus and right orbit. Patient has headache and neck pain. EXAM: Head CT without IV contrast. Axial CT scan of the cervical spine with sagittal and coronal reformations. COMPARISON: CT scan of the head and cervical spine dated 04/21/2018. FINDINGS: HEAD CT: There is no evidence of acute cerebral infarct, intracranial hemorrhage, or gross mass effect. There is diffuse brain parenchymal volume loss seen. There are subtle areas of focal low-attenuation white matter changes involving both cerebral hemispheres, likely representing chronic small vessel ischemic disease. There is normal issa/white matter distinction. There is no significant midline shift or herniation. There is no evidence of hydrocephalus. The basal cisterns are unremarkable. There is a small area of extracranial soft tissue swelling in the right forehead and superior/lateral right periorbital region. There is no skull fracture. The orbits and globes are intact. Otherwise, the skull, extracranial soft tissue, and orbits are unremarkable. The paranasal sinuses are unremarkable. The temporal bones show no significant abnormality. CT CERVICAL SPINE: There is streak artifact which obscures the inferior aspect of the C6 vertebra and most of the C7 and T1 vertebra limiting evaluation. There is no evidence of acute cervical spine fracture. There is stable grade 1 anterolisthesis of C2 on C3 and C3 on C4. There is no significant change to the multilevel cervical spine degenerative disease with severe loss of intervertebral disc height at the C4-C5 level with endplate irregularity, Schmorl's nodes, and sclerosis. Stable moderate loss of intervertebral disc height involving the C5-C6 and C6-C7 levels. Stable kyphosis of the cervical spine posture. IMPRESSION: 1. There is no evidence of acute intracranial process. There is no intracranial hemorrhage. 2. There is a small area of extracranial soft tissue swelling in the right frontal and right periorbital region. There is no skull fracture. The orbits and globes are intact. 3. Stable degenerative disease of the cervical spine with no acute fracture. There is stable grade 1 anterolisthesis of C2 on C3 and C3 on C4 with kyphosis of the cervical spine posture. 4. Stable age-related brain parenchymal changes. Dictated on workstation # [id number] Dict: 12/11/18 1625 Trans: 12/11/18 1637 [id number] Interpreted by: MADDISON NUÑEZ MD Electronically signed by: Yany Imaging: CT Plain Films/CT/US/NM/MRI: chest, abdomen, pelvis Comments NAME: LA[facility] REC#: [id number] PT STATUS: REG ER : 1945 PHYSICIAN: MATT HIDALGO MD ADMIT DATE: 12/11/18/ER Draft Date of Exam:12/11/18 CT CHEST/ABDOMEN/PELVIS WO PROCEDURE: CT chest, abdomen, and pelvis without contrast. TECHNIQUE: Multiple contiguous axial images were obtained through the chest, abdomen, and pelvis without the use of intravenous contrast. INDICATION: Fall with right lateral chest pain as well as lateral abdominal pain. COMPARISON: Correlation is made with prior CT chest from 10/21/2015. FINDINGS: CT chest: No mediastinal hematoma is identified. No pericardial or pleural fluid is identified. No parenchymal contusion or pneumothorax is detected. Micronodules in the right upper and right lower lobe are stable. There is some chronic atelectasis or scarring in the lingula. No definite rib fracture is identified. IMPRESSION: Unremarkable noncontrast CT of the chest. CT abdomen and pelvis: No definite focal liver or splenic laceration is seen, although evaluation is limited without intravenous contrast. No perihepatic or perisplenic fluid is detected. The gallbladder is surgically absent. There are postop changes to the stomach. Pancreas is unremarkable. No adrenal hematoma is seen. No perinephric fluid collection is identified. Aorta is calcified but nonaneurysmal. There is no evidence of a hemoperitoneum. Visualized bladder is unremarkable. Moderate stool in the colon is identified. Small bowel loops are normal in caliber. Postsurgical changes in the lumbar spine are noted. No acute bony abnormality is seen. There does appear to be some thickening of the musculature of the right lateral abdominal wall, perhaps owing to some hematoma formation. No well-formed fluid collection is seen. There is some mild associated stranding in the subcutaneous fat at this location. IMPRESSION: 1. No evidence of abdominal or pelvic visceral injury. There is some thickening of the right lateral abdominal wall musculature, perhaps owing to some bruising or hematoma formation. No other significant abnormality is detected. Dictated on workstation # [id number] Dict: 12/11/18 1628 Trans: 12/11/18 1642 [id number] Interpreted by: SOPHY WHITEHEAD MD Electronically signed by: Reviewed: Discussed w/Radiologist (MATT HIDALGO MD) Departure Communication (Admissions) Time/Spoke to Admitting Phy: 21:07 Dr. Montgomery (AIRAM MARVIN MD) Impression Primary Impression: Sepsis Qualified Codes: A41.9 - Sepsis, unspecified organism Additional Impressions: Urinary tract infection Qualified Codes: N39.0 - Urinary tract infection, site not specified ARF (acute renal failure) Qualified Codes: N17.9 - Acute kidney failure, unspecified Orthostatic hypotension Nausea and vomiting Qualified Codes: R11.2 - Nausea with vomiting, unspecified Disposition: ADMITTED INPATIENT Condition: Improved Admissions Decision to Admit Reason: Admit from ER (General) Decision to Admit/Date: Dec 11, 2018 Time/Decision to Admit Time: 21:00 (AIRAM MARVIN MD) Departure-Patient Inst. Referrals: NEERU CANO MD (PCP/Family) Primary Care Physician LAKE VARELA Dec 11, 2018 15:36 MATT HIDALGO MD Dec 11, 2018 17:07 AIRAM MARVIN MD Dec 11, 2018 21:30
[2018-12-11 15:41] LABS: BASOPHILS % (AUTO) 0 % (0-10); EOSINOPHILS # (AUTO) 0.1 10^3/uL (0.0-0.3); EOSINOPHILS % (AUTO) 1 % (0-10); HEMATOCRIT 40 % (35-52); LYMPHOCYTES # (AUTO) 2.7 X 10^3 (1.0-4.0); LYMPHOCYTES % (AUTO) 22 % (12-44); MEAN CORPUSCULAR HEMOGLOBIN 30 PG (25-34); MEAN CORPUSCULAR HGB CONC 33 G/DL (32-36); MEAN CORPUSCULAR VOLUME 91 FL (80-99); MONOCYTES # (AUTO) 1.3 X 10^3 (0.0-1.0); MONOCYTES % (AUTO) 10 % (0-12); NEUTROPHILS # (AUTO) 8.3 X 10^3 (1.8-7.8); NEUTROPHILS % (AUTO) 67 % (42-75); PLATELET COUNT 308 10^3/uL (130-400); RED CELL DISTRIBUTION WIDTH 15.9 % (10.0-14.5); WHITE BLOOD COUNT 12.3 10^3/uL (4.3-11.0)
--- NOTE | 2018-12-11 15:54 | Diagnostic Imaging Report ---
INDICATION: Dizziness and falls. TIME OF EXAM: 3:43 PM COMPARISON: Correlation is made with prior exam from 07/05/2018. FINDINGS: The heart size is stable. The lungs are clear. The pulmonary vascularity is normal. No infiltrate, effusion or pneumothorax is identified. There are postoperative changes of bilateral shoulder arthroplasties. IMPRESSION: No acute cardiopulmonary processes detected. Dictated by: Dictated on workstation # [id number]
[2018-12-11 15:57] LABS: ALBUMIN 2.9 GM/DL (3.2-4.5); BILIRUBIN,TOTAL 0.7 MG/DL (0.1-1.0); CALCIUM 8.4 MG/DL (8.5-10.1); CREATININE SERUM 1.77 MG/DL (0.60-1.30); MAGNESIUM 1.8 MG/DL (1.8-2.4); POTASSIUM 3.9 MMOL/L (3.6-5.0); TOTAL PROTEIN 5.6 GM/DL (6.4-8.2)
[2018-12-11 15:58] VITALS: BP 93/67
--- NOTE | 2018-12-11 16:28 | NUR ---
BACK FROM CT
--- NOTE | 2018-12-11 16:38 | Diagnostic Imaging Report ---
CLINICAL INDICATION: Patient fell face forward striking the lateral canthus and right orbit. Patient has headache and neck pain. EXAM: Head CT without IV contrast. Axial CT scan of the cervical spine with sagittal and coronal reformations. COMPARISON: CT scan of the head and cervical spine dated 04/21/2018. FINDINGS: HEAD CT: There is no evidence of acute cerebral infarct, intracranial hemorrhage, or gross mass effect. There is diffuse brain parenchymal volume loss seen. There are subtle areas of focal low-attenuation white matter changes involving both cerebral hemispheres, likely representing chronic small vessel ischemic disease. There is normal issa/white matter distinction. There is no significant midline shift or herniation. There is no evidence of hydrocephalus. The basal cisterns are unremarkable. There is a small area of extracranial soft tissue swelling in the right forehead and superior/lateral right periorbital region. There is no skull fracture. The orbits and globes are intact. Otherwise, the skull, extracranial soft tissue, and orbits are unremarkable. The paranasal sinuses are unremarkable. The temporal bones show no significant abnormality. CT CERVICAL SPINE: There is streak artifact which obscures the inferior aspect of the C6 vertebra and most of the C7 and T1 vertebra limiting evaluation. There is no evidence of acute cervical spine fracture. There is stable grade 1 anterolisthesis of C2 on C3 and C3 on C4. There is no significant change to the multilevel cervical spine degenerative disease with severe loss of intervertebral disc height at the C4-C5 level with endplate irregularity, Schmorl's nodes, and sclerosis. Stable moderate loss of intervertebral disc height involving the C5-C6 and C6-C7 levels. Stable kyphosis of the cervical spine posture. IMPRESSION: 1. There is no evidence of acute intracranial process. There is no intracranial hemorrhage. 2. There is a small area of extracranial soft tissue swelling in the right frontal and right periorbital region. There is no skull fracture. The orbits and globes are intact. 3. Stable degenerative disease of the cervical spine with no acute fracture. There is stable grade 1 anterolisthesis of C2 on C3 and C3 on C4 with kyphosis of the cervical spine posture. 4. Stable age-related brain parenchymal changes. Dictated by: Dictated on workstation # [id number]
--- NOTE | 2018-12-11 16:42 | Diagnostic Imaging Report ---
PROCEDURE: CT chest, abdomen, and pelvis without contrast. TECHNIQUE: Multiple contiguous axial images were obtained through the chest, abdomen, and pelvis without the use of intravenous contrast. INDICATION: Fall with right lateral chest pain as well as lateral abdominal pain. COMPARISON: Correlation is made with prior CT chest from 10/21/2015. FINDINGS: CT chest: No mediastinal hematoma is identified. No pericardial or pleural fluid is identified. No parenchymal contusion or pneumothorax is detected. Micronodules in the right upper and right lower lobe are stable. There is some chronic atelectasis or scarring in the lingula. No definite rib fracture is identified. IMPRESSION: Unremarkable noncontrast CT of the chest. CT abdomen and pelvis: No definite focal liver or splenic laceration is seen, although evaluation is limited without intravenous contrast. No perihepatic or perisplenic fluid is detected. The gallbladder is surgically absent. There are postop changes to the stomach. Pancreas is unremarkable. No adrenal hematoma is seen. No perinephric fluid collection is identified. Aorta is calcified but nonaneurysmal. There is no evidence of a hemoperitoneum. Visualized bladder is unremarkable. Moderate stool in the colon is identified. Small bowel loops are normal in caliber. Postsurgical changes in the lumbar spine are noted. No acute bony abnormality is seen. There does appear to be some thickening of the musculature of the right lateral abdominal wall, perhaps owing to some hematoma formation. No well-formed fluid collection is seen. There is some mild associated stranding in the subcutaneous fat at this location. IMPRESSION: 1. No evidence of abdominal or pelvic visceral injury. There is some thickening of the right lateral abdominal wall musculature, perhaps owing to some bruising or hematoma formation. No other significant abnormality is detected. Dictated by: Dictated on workstation # [id number]
--- NOTE | 2018-12-11 17:03 | NUR ---
TOLERATED GETTING UP TO BSC WITHOUT PROBLEM
[2018-12-11 17:04] VITALS: BP 104/65
[2018-12-11 17:11] LABS: CLARITY,URINE CLEAR; COLOR,URINE YELLOW; GLUCOSE, URINE (UA) NEGATIVE (NEGATIVE); KETONES,URINE NEGATIVE (NEGATIVE); LEUKOCYTE ESTERASE ,URINE 3+ (NEGATIVE); NITRITE,URINE NEGATIVE (NEGATIVE); PH,URINE 5 (5-9); PROTEIN,URINE NEGATIVE (NEGATIVE); UROBILINOGEN,URINE 1 MG/DL (NORMAL)
[2018-12-11 17:24] LABS: BACTERIA,URINE TRACE /HPF; WBC,URINE 25-50 /HPF
[2018-12-11 17:30] LABS: BILIRUBIN,URINE 2+ (NEGATIVE); HYALINE CASTS, URINE >50 /LPF
[2018-12-11] MEDS ORDERED: NS IV 1000 ML 1,000 ML ONE (17:37)
--- NOTE | 2018-12-11 17:43 | NUR ---
PATIENT ALERT B/P 82/69 DR NOTIFED ORDER FOR FLUIDS.
[2018-12-11] MEDS ORDERED: ACETAMINOPHEN 500 MG TAB (TYLENOL) PO ONE (18:30)
[2018-12-11 18:33] VITALS: BP 122/78
[2018-12-11] MEDS ORDERED: NS IV 500 ML 500 ML IV ONE (19:03)
--- NOTE | 2018-12-11 19:03 | NUR ---
REPORT TO GENEVIVEE
[2018-12-11] MEDS ORDERED: cefTRIAXone FOR IV USE 1,000 MG in WATER (STERILE) FOR INJECTION 10 ML IV ONE (19:15)
[2018-12-11] MEDS ORDERED: ONDANSETRON 4 MG/2 ML (SDV) Z0FRAN IVP ONE (20:15)
--- NOTE | 2018-12-11 20:30 | NUR ---
PT'S BLOOD PRESSURE ASSESSED FROM STANDING POSITION, 86/60 NOTED, HR 95
--- OUTSIDE RECORDS SUMMARY | 2018-12-11 21:43 | XMS REPORT | Clinical Summary ---
Author Author [facility] Organization [facility] Address Unknown Phone Unavailable Care Team Providers Care Senior Network Engineer Name Role Phone No Pcp, Na PCP Unavailable Agustin Buitrago MD Unavailable Source Comments Some departments are not documenting in the electronic medical record. 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 For more information, please contact: [facility] [address] [place] [address]
--- OUTSIDE RECORDS SUMMARY | 2018-12-11 21:58 | XMS REPORT | Continuity of Care Document ---
Author Author [facility] Address Unknown Phone Unavailable Allergies Active Description Code Type Severity Reaction Onset Reported/Identified Relationship to Patient Clinical Status Yes nalbuphine [id number] Drug Allergy Mild N/A 04/23/2009 Yes Nubain Drug Allergy N/A N/A 08/19/2010 Yes Penicillins Drug Allergy N/A N/A 08/19/2010 Yes Nubain Drug Allergy 08/19/2010 Yes Penicillins Drug Allergy 08/19/2010 Yes fentanyl Drug Allergy N/A N/A 10/25/2011 Yes fentanyl Drug Allergy 10/25/2011 Yes Penicillins [id number] Drug Allergy Mild PT DOES NOT REM 04/21/2018 Yes nalbuphine [id number] Drug Allergy Mild Pt has received 11/21/2018 [...] APRN 266.2 OTHER B-COMPLEX DEFICIENCIES 08/19/2010 HUEY BOTTOM TURNING LATHE TURNER, ARETHA S 272.4 OTHER AND UNSPECIFIED HYPERLIPIDEMIA 08/19/2010 HUEY BOTTOM TURNING LATHE TURNER, ARETHA S 338.29 OTHER CHRONIC PAIN 08/19/2010 HUEY BOTTOM TURNING LATHE TURNER, ARETHA S 401.9 UNSPECIFIED ESSENTIAL HYPERTENSION 08/19/2010 HUEY BOTTOM TURNING LATHE TURNER, ARETHA S 627.2 SYMPTOMATIC MENOPAUSAL OR FEMALE CLIMACTERIC STATES 08/19/2010 HUEY BOTTOM TURNING LATHE TURNER, ARETHA S 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 08/19/2010 HUEY BOTTOM TURNING LATHE TURNER, ARETHA S 724.2 LUMBAGO 08/19/2010 266.2 OTHER [...] ACTINIC KERATOSIS 08/19/2010 724.2 LUMBAGO 08/19/2010 HUEY BOTTOM TURNING LATHE TURNER, ARETHA S 266.2 OTHER B-COMPLEX DEFICIENCIES 08/19/2010 HUEY BOTTOM TURNING LATHE TURNER, ARETHA S 272.4 OTHER AND UNSPECIFIED HYPERLIPIDEMIA 08/19/2010 HUEY BOTTOM TURNING LATHE TURNER, ARETHA S 338.29 OTHER CHRONIC PAIN 08/19/2010 HUEY BOTTOM TURNING LATHE TURNER, ARETHA S 401.9 UNSPECIFIED ESSENTIAL HYPERTENSION 08/19/2010 HUEY BOTTOM TURNING LATHE TURNER, ARETHA S 627.2 SYMPTOMATIC MENOPAUSAL OR FEMALE CLIMACTERIC STATES 08/19/2010 HUEY BOTTOM TURNING LATHE TURNER, ARETHA S 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 08/19/2010 HUEY BOTTOM TURNING LATHE TURNER, ARETHA S 724.2 LUMBAGO 08/19/2010 HUEY BOTTOM TURNING LATHE TURNER, ARETHA S 266.2 OTHER B-COMPLEX DEFICIENCIES 08/19/2010 HUEY BOTTOM TURNING LATHE TURNER, ARETHA S 272.4 OTHER AND UNSPECIFIED HYPERLIPIDEMIA 08/19/2010 HUEY BOTTOM TURNING LATHE TURNER, ARETHA S 338.29 OTHER CHRONIC PAIN 08/19/2010 HUEY BOTTOM TURNING LATHE TURNER, ARETHA S 401.9 UNSPECIFIED ESSENTIAL HYPERTENSION 08/19/2010 HUEY BOTTOM TURNING LATHE TURNER, ARETHA S 627.2 SYMPTOMATIC MENOPAUSAL OR FEMALE CLIMACTERIC STATES 08/19/2010 HUEY BOTTOM TURNING LATHE TURNER, ARETHA S 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 08/19/2010 HUEY BOTTOM TURNING LATHE TURNER, ARETHA S 724.2 LUMBAGO 08/19/2010 HUEY BOTTOM TURNING LATHE TURNER, ARETHA S 266.2 OTHER B-COMPLEX DEFICIENCIES 08/19/2010 HUEY BOTTOM TURNING LATHE TURNER, ARETHA S 272.4 OTHER AND UNSPECIFIED HYPERLIPIDEMIA 08/19/2010 HUEY BOTTOM TURNING LATHE TURNER, ARETHA S 338.29 OTHER CHRONIC PAIN 08/19/2010 [...] MD 786.05 SHORTNESS OF BREATH 05/12/2011 HUEY BOTTOM TURNING LATHE TURNERLIZZY GarayNDA S 780.79 OTHER MALAISE AND FATIGUE [...] BALLARD, ARETHA S 782.7 SPONTANEOUS ECCHYMOSES 05/12/2011 HEUY BALLARD, ARETHA S 783.1 ABNORMAL WEIGHT GAIN [...] 10/10/2011 781.2 ABNORMALITY OF GAIT 10/10/2011 HUEY BOTTOM TURNING LATHE TURNER, ARETHA S 300.00 ANXIETY STATE UNSPECIFIED 10/10/2011 HUEY BOTTOM TURNING LATHE TURNER, ARETHA S 780.93 MEMORY LOSS 10/10/2011 HUEY BOTTOM TURNING LATHE TURNER, ARETHA S 781.2 ABNORMALITY OF GAIT 10/10/2011 HUEY BOTTOM TURNING LATHE TURNER, ARETHA S 300.00 ANXIETY STATE UNSPECIFIED 10/10/2011 HUEY BOTTOM TURNING LATHE TURNER, ARETHA S 780.93 MEMORY LOSS 10/10/2011 HUEY BOTTOM TURNING LATHE TURNER, ARETHA S 781.2 ABNORMALITY OF GAIT 10/10/2011 HUEY BOTTOM TURNING LATHE TURNER, ARETHA S 300.00 ANXIETY STATE UNSPECIFIED 10/10/2011 HUEY BOTTOM TURNING LATHE TURNER, ARETHA S 780.93 MEMORY LOSS 10/10/2011 HUEY BOTTOM TURNING LATHE TURNER, ARETHA S 781.2 ABNORMALITY OF GAIT 10/11/2011 ROSITA PACHECO MD 288.60 Leukocytosis 10/11/2011 ROSITA PACHECO MD 288.66 Bandemia 10/11/2011 ROSITA PACHECO MD 786.09 RESPIRATORY ABNORMALITY OTHER 10/11/2011 HUEY BOTTOM TURNING LATHE TURNER, ARETHA S 288.60 Leukocytosis 10/11/2011 LIZZY ARZATE APRNNDA S 288.66 Bandemia 10/11/2011 HUEY BOTTOM TURNING LATHE TURNER, ARETHA S 786.09 RESPIRATORY ABNORMALITY OTHER 10/11/2011 [...] 10/11/2011 786.09 RESPIRATORY ABNORMALITY OTHER 10/11/2011 HUEY BOTTOM TURNING LATHE TURNER, ARETHA S 288.60 Leukocytosis 10/11/2011 HUEY BOTTOM TURNING LATHE TURNER, ARETHA S 288.66 Bandemia 10/11/2011 HUEY BOTTOM TURNING LATHE TURNER, ARETHA S 786.09 RESPIRATORY ABNORMALITY OTHER 10/11/2011 HUEY BOTTOM TURNING LATHE TURNER, ARETHA S 288.60 Leukocytosis 10/11/2011 HUEY BOTTOM TURNING LATHE TURNER, ARETHA S 288.66 Bandemia 10/11/2011 HUEY BOTTOM TURNING LATHE TURNER, ARETHA S 786.09 RESPIRATORY ABNORMALITY OTHER 10/11/2011 HUEY BOTTOM TURNING LATHE TURNER, ARETHA S 288.60 Leukocytosis 10/11/2011 HUEY BOTTOM TURNING LATHE TURNER, ARETHA S 288.66 Bandemia 10/11/2011 HUEY BOTTOM TURNING LATHE TURNER, ARETHA S 786.09 RESPIRATORY ABNORMALITY OTHER 10/25/2011 ROSITA PACHECO MD 458.9 Hypotension Unspecified 10/25/2011 ROSITA PACHECO MD 780.1 Hallucinations 10/25/2011 HUEY BALLARD, ARETHA S 458.9 Hypotension Unspecified 10/25/2011 HUEY BOTTOM TURNING LATHE TURNER, ARETHA S 780.1 Hallucinations 10/25/2011 458.9 Hypotension [...] 01/20/2012 477.9 RHINITIS 01/20/2012 477.9 RHINITIS 01/20/2012 UJMA ARZATE APRNA S 477.9 RHINITIS 01/20/2012 ARETHA [...] IN JOINT INVOLVING LOWER LEG 09/20/2012 GABRIELLE PNACHAL DO 482.39 PNEUMONIA DUE TO OTHER STREPTOCOCCUS [...] HYPERHIDROSIS 10/29/2012 780.8 GENERALIZED HYPERHIDROSIS 10/29/2012 HUEY BOTTOM TURNING LATHE TURNERLIZZY GarayNDA S 780.8 GENERALIZED HYPERHIDROSIS 10/29/2012 LIZZY ARZATE APRNNDA S 780.8 GENERALIZED HYPERHIDROSIS 11/29/2012 V72.31 TRIMMER PRESS CLIPPINGS EXAM, ROUTINE 11/29/2012 V76.10 BREAST CANCER SCREENING 11/29/2012 GABRIELLE APNCHAL DO V72.31 TRIMMER PRESS CLIPPINGS EXAM, ROUTINE 11/29/2012 PANCHAL GABRIELLE DRUMMOND V76.10 BREAST CANCER SCREENING 11/29/2012 V72.31 TRIMMER PRESS CLIPPINGS EXAM, ROUTINE 11/29/2012 V76.10 BREAST CANCER SCREENING 11/29/2012 V72.31 TRIMMER PRESS CLIPPINGS EXAM, ROUTINE 11/29/2012 V76.10 BREAST CANCER SCREENING 11/29/2012 V72.31 TRIMMER PRESS CLIPPINGS EXAM, ROUTINE 11/29/2012 V76.10 BREAST CANCER SCREENING 11/29/2012 V72.31 TRIMMER PRESS CLIPPINGS EXAM, ROUTINE 11/29/2012 V76.10 BREAST CANCER SCREENING 11/29/2012 V72.31 TRIMMER PRESS CLIPPINGS EXAM, ROUTINE 11/29/2012 V76.10 BREAST CANCER SCREENING 11/29/2012 HUEY BOTTOM TURNING LATHE TURNER ARETHA S V72.31 TRIMMER PRESS CLIPPINGS EXAM, ROUTINE 11/29/2012 HUEY BOTTOM TURNING LATHE TURNERLIZZY GarayNDA S V76.10 BREAST CANCER SCREENING 11/29/2012 HUEY BOTTOM TURNING LATHE TURNER, ARETHA S V72.31 TRIMMER PRESS CLIPPINGS EXAM, ROUTINE 11/29/2012 HUEY BOTTOM TURNING LATHE TURNER, ARETHA S V76.10 BREAST CANCER SCREENING 12/05/2012 [...] SHOULDER REGION DIS NEC 05/01/2013 KEV PEREZ WETLAND SCIENTIST Ot 726.32 LATERAL EPICONDYLITIS 05/01/2013 KEV PEREZ WETLAND SCIENTIST Ot V57.1 PHYSICAL THERAPY NEC 07/01/2013 MATT HIDALGO MD Ot 724.5 BACKACHE NOS 07/01/2013 MATT HIDALGO MD Ot 780.2 SYNCOPE AND COLLAPSE 07/01/2013 MATT HIDALGO MD Ot 786.50 CHEST PAIN NOS 07/01/2013 MATT HIDALGO MD Ot 920 CONTUSION FACE/SCALP/NCK 07/01/2013 MATT HIDALGO MD Ot E000.8 OTHER EXTERNAL CAUSE STATUS 07/01/2013 GWEN COLLINS, MATT Oneill Ot E849.0 ACCIDENT IN [...] MIRANDA DO Ot 414.01 CORONARY ATHEROSCLEROSIS OF [place] CORON 03/15/2014 ANOOP MIRANDA DO Ot 496 CHR AIRWAY OBSTRUCT NEC 03/15/2014 ANOOP MIRANDA DO Ot 564.00 UNSPEC CONSTIPATION 03/15/2014 ANOOP MIRANDA DO Ot 715.90 OSTEOARTHROS NOS-UNSPEC 03/15/2014 [facility] DRUM[facility] Ot 719.40 JOINT PAIN-UNSPEC 03/15/2014 [facility]UM[facility] Ot 724.5 BACKACHE NOS 03/15/2014 [facility]UM[facility] Ot 733.6 TIETZE'S DISEASE [facility]UM[facility] Ot 782.3 EDEMA [...] 455.0 INT HEMORRHOID W/O COMPL 08/06/2014 LADONNA GALLRADO MD Ot 455.3 EXT HEMORRHOID W/O COMPL 08/06/2014 LADONNA GALLARDO MD Ot 562.10 DIVERTICULOSIS COLON (W/O MENT OF HEMORR 09/16/2014 STACY LOWE [employer]ETLAND SCIENTIST Ot 719.47 JOINT PAIN-ANKLE 09/16/2014 STACY LOWE WETLAND SCIENTIST Ot 724.5 BACKACHE NOS 09/16/2014 STACY LOWE WETLAND SCIENTIST Ot V57.1 PHYSICAL THERAPY NEC 10/14/2014 FRANCY [...] 780.93 12/15/2014 Ot 781.2 12/15/2014 STACY LOWE [employer]ETLAND SCIENTIST Ot 719.47 12/15/2014 STACY LOWE WETLAND SCIENTIST Ot 722.52 12/15/2014 STACY LOWE WETLAND SCIENTIST Ot 736.70 12/15/2014 STACY LOWE WETLAND SCIENTIST Ot 737.30 12/15/2014 STACY LOWE WETLAND SCIENTIST Ot 756.12 12/15/2014 ARETHA ARZATE WETLAND SCIENTIST Ot 611.71 12/15/2014 ARETHA ARZATE [employer]ETLAND SCIENTIST Ot 611.79 12/15/2014 ABDELRAHMAN COLLINS, CADEN Guerrero Ot 397.0 12/15/2014 ABDELRAHMAN COLLINS, CADEN Guerrero Ot 424.0 12/15/2014 ABDELRAHMAN COLLINS, CADEN Guerrero Ot 786.09 12/15/2014 ABDELRAHMAN COLLINS, CADEN Guerrero Ot 786.50 12/15/2014 ABDELRAHMAN COLLINS, CADEN Guerrero Ot 786.09 12/15/2014 ABDELRAHMAN COLLINS, CADEN Guerrero Ot 786.50 12/15/2014 ANOOP MIRANDA DO Ot V54.16 12/15/2014 STACY LOWE WETLAND SCIENTIST Ot V76.12 12/15/2014 LADONNA GALLARDO MD Ot V72.84 01/22/2015 Ot 715.31 02/18/2015 Ot 715.31 02/18/2015 Ot 611.72 02/18/2015 Ot V76.12 02/18/2015 Ot 793.80 02/18/2015 Ot 793.80 02/18/2015 Ot 338.29 02/18/2015 Ot 724.2 02/18/2015 Ot 786.05 02/18/2015 Ot 780.93 02/18/2015 Ot 781.2 02/18/2015 Ot 331.9 02/18/2015 Ot 780.93 02/18/2015 Ot 781.2 02/18/2015 STACY LOWE WET[employer] SCIENTIST Ot 719.47 02/18/2015 STACY LOWE WETLAND SCIENTIST Ot 722.52 02/18/2015 STACY LOWE WETLAND SCIENTIST Ot 736.70 02/18/2015 STACY LOWE WETLAND SCIENTIST Ot 737.30 02/18/2015 STACY LOWE WETLAND SCIENTIST Ot 756.12 02/18/2015 ARETHA ARZATE WETLAND SCIENTIST Ot 611.71 02/18/2015 ARETHA ARZATE WETLAND SCIENTIST Ot 611.79 02/18/2015 ABDELRAHMAN COLLINS, CADEN Guerrero Ot 397.0 02/18/2015 ABDELRAHMAN COLLINS, CADEN Guerrero Ot 424.0 02/18/2015 ABDELRAHMAN COLLINS, CADEN Guerrero Ot 786.09 02/18/2015 ABDELRAHMAN COLLINS, CADEN Guerrero Ot 786.50 02/18/2015 ABDELRAHMAN COLLINS, CADEN Guerrero Ot 786.09 02/18/2015 ABDELRAHMAN COLLINS, CADEN Guerrero Ot 786.50 02/18/2015 ANOOP MIRANDA DO Ot V54.16 02/18/2015 STACY LOWE [facility] Ot V76.12 02/18/2015 LADONNA GALLARDO MD Ot V72.84 02/18/2015 Ot 715.91 02/18/2015 Ot 715.31 02/26/2015 Ot 611.72 02/26/2015 Ot V76.12 02/26/2015 Ot 793.80 02/26/2015 Ot 793.80 02/26/2015 Ot 338.29 02/26/2015 Ot 724.2 02/26/2015 Ot 786.05 02/26/2015 Ot 780.93 02/26/2015 Ot 781.2 02/26/2015 Ot 331.9 02/26/2015 Ot 780.93 02/26/2015 Ot 781.2 02/26/2015 STACY LOWE [facility] Ot 719.47 02/26/2015 STACY LOWE [facility] Ot 722.52 02/26/2015 STACY LOWE WET[employer] SCIENTIST Ot 736.70 02/26/2015 STACY LOWE WETLAND SCIENTIST Ot 737.30 02/26/[address] [facility] Ot 756.12 02/26/2015 ARETHA ARZATE WETLAND SCIENTIST Ot 611.71 02/26/2015 ARETHA ARZATE [employer]ETLAND SCIENTIST Ot 611.79 02/26/2015 ABDELRAHMAN COLLINS, CADEN Guerrero Ot 397.0 02/26/2015 CADEN QUICK MD Ot 424.0 02/26/2015 CADEN QUICK MD Ot 786.09 02/26/2015 ABDELRAHMAN COLLINS, CADEN Guerrero Ot 786.50 02/26/2015 ABDELRAHMAN COLLINS, CADEN Guerrero Ot 786.09 02/26/2015 ABDELRAHMAN COLLINS, CADEN Guerrero Ot 786.50 02/26/2015 ANOOP MIRANDA DO Ot V54.16 02/26/2015 STACY LOWE WETLAND SCIENTIST Ot V76.12 02/26/2015 LADONNA GALLARDO MD Ot V72.84 02/26/2015 Ot 715.91 02/26/2015 Ot 715.31 03/02/2015 Ot 611.72 03/02/2015 Ot V76.12 03/02/2015 Ot 793.80 03/02/2015 Ot 793.80 03/02/2015 Ot 338.29 03/02/2015 Ot 724.2 03/02/2015 Ot 786.05 03/02/2015 Ot 780.93 03/02/2015 Ot 781.2 03/02/2015 Ot 331.9 03/02/2015 Ot 780.93 03/02/2015 Ot 781.2 03/02/2015 STACY LOWE [employer] SCIENTIST Ot 719.47 03/02/2015 STACY LOWE WETLAND SCIENTIST Ot 722.52 03/02/2015 STACY LOWE WETLAND SCIENTIST Ot 736.70 03/02/2015 STACY LOWE WETLAND SCIENTIST Ot 737.30 03/02/2015 STACY LOWE WETLAND SCIENTIST Ot 756.12 03/02/2015 ARETHA ARZATE WETLAND SCIENTIST Ot 611.71 03/02/2015 ARETHA ARZATE WETLAND SCIENTIST Ot 611.79 03/02/2015 ABDELRAHMAN COLLINS, CADEN Guerrero Ot 397.0 03/02/2015 ABDELRAHMAN COLLINS, CADEN Guerrero Ot 424.0 03/02/2015 ABDELRAHMAN COLLINS, CADEN Guerrero Ot 786.09 03/02/2015 ABDELRAHMAN COLLINS, CADEN Guerrero Ot 786.50 03/02/2015 ABDELRAHMAN COLLINS, CADEN Guerrero Ot 786.09 03/02/2015 ABDELRAHMAN COLLINS, CADEN Guerrero Ot 786.50 03/02/2015 ANOOP MIRANDA DO Ot V54.16 03/02/2015 STACY LOWE WET[employer] SCIENTIST Ot V76.12 03/02/2015 PAULINA COLLINS, LADONNA Ot [...] Frank Ot V57.1 05/11/2015 ENID DO, HEATHER Frnak Ot V43.61 SHOULDER JOINT REPLACEMENT STATUS 05/11/2015 [...] 780.93 08/07/2015 Ot 781.2 08/07/2015 STACY LOWE [employer]ET[employer] SCIENTIST Ot 719.47 08/07/2015 STACY LOWE [employer]ET[employer] SCIENTIST Ot 722.52 08/07/2015 STACY LOWE WETLAND SCIENTIST Ot 736.70 08/07/2015 STACY LOWE [employer]ETLAND SCIENTIST Ot 737.30 08/07/2015 STACY LOWE WETLAND SCIENTIST Ot 756.12 08/07/2015 ARETHA ARZATE WETLAND SCIENTIST Ot 611.71 08/07/2015 ARETHA ARZATE [employer] SCIENTIST Ot 611.79 08/07/2015 CADEN QUICK MD Ot [...] 780.93 09/11/2015 Ot 781.2 09/11/2015 STACY LOWE WETLAND SCIENTIST Ot 719.47 09/11/2015 STACY LOWE WETLAND SCIENTIST Ot 722.52 09/11/2015 STACY LOWE WETLAND SCIENTIST Ot 736.70 09/11/2015 STACY LOWE WETLAND SCIENTIST Ot 737.30 09/11/2015 STACY LOWE WETLAND SCIENTIST Ot 756.12 09/11/2015 ARETHA ARZTAE WETLAND SCIENTIST Ot 611.71 09/11/2015 ARETHA ARZATE [employer]ETLAND SCIENTIST Ot 611.79 09/11/2015 CADEN QUICK MD Ot 397.0 09/11/2015 ABDELRAHMAN COLLINS, CADEN Guerrero Ot 424.0 09/11/2015 CADEN QUICK MD Ot 786.09 09/11/2015 CADEN QUICK MD Ot 786.50 09/11/2015 ABDELRAHMAN COLLINS, CADEN Guerrero Ot 786.09 09/11/2015 CADEN QUICK MD Ot 786.50 09/11/2015 ANOOP MIRANDA DO Ot V54.16 09/11/2015 STACY LOWE WETLAND SCIENTIST Ot V76.12 09/11/2015 LADONNA GALLARDO MD Ot V72.84 09/11/2015 Ot 715.91 09/11/2015 Ot 715.31 09/11/2015 LEANDRO FIGUEROA MD Ot V76.12 10/05/2015 LEANDRO FIGUEROA MD Ot M41.9 10/05/2015 CAROLINA COLLINS, LEANDRO A Ot M47.894 10/15/2015 STACY LOWE [employer]ET[employer] SCIENTIST Ot M47.894 10/15/2015 STACY LOWE [employer]ET[employer] SCIENTIST Ot M47.896 10/21/2015 GWEN COLLINS, MATT Oneill [...] HEATHER F Ot M75.101 10/29/2015 STACY LOWE [employer]ET[employer] SCIENTIST Ot M47.894 10/29/2015 STACY LOWE [employer]ETLAND SCIENTIST Ot M47.896 11/05/2015 CAROLINA COLLINS, LEANDRO A [...] AND SIGNS INVOLVING THE CIR 03/14/2016 HEATHER ROSSI DO Ot M25.511 PAIN IN [...] Ot 719.47 JOINT PAIN-ANKLE 12/01/2017 STACY LOWE [employer] SCIENTIST Ot 722.52 LUMB/LUMBOSAC DISC DEGEN 12/01/2017 STACY LOWEP Ot 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 Ot 737.30 IDIOPATHIC SCOLIOSIS 12/01/2017 STACY LOWE [facility] Ot 756.12 SPONDYLOLISTHESIS 12/01/2017 ARETHA ARZATE [employer] SCIENTIST Ot 611.71 MASTODYNIA 12/01/2017 ARETHA [address]ZATE [facility] Ot 611.79 SYMPTOMS IN BREAST NEC [...] AFTERCARE HEALING TRAUMATIC FX LOWER LEG 12/01/2017 SATCY [address] [facility] Ot V76.12 OTH SCREEN MAMMO-MALIGN NEOPLASM OF [place] 12/01/2017 PAULINA COLLINS, LADONNA Ot V72.84 EXAM PRE-OPERATIVE NOS 12/01/2017 Ot 715.91 OSTEOARTHROS NOS-SHLDER 12/01/2017 Ot 715.31 LOC OSTEOARTH NOS-SHLDER 12/01/2017 CAROLINA COLLINS, LEANDRO Reyes Ot V76.12 OTH SCREEN MAMMO-MALIGN NEOPLASM OF [place] 12/01/2017 BILLY CARO APRN Ot R06.02 SHORTNESS OF BREATH 12/01/2017 STACY LOWE 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, THORACIC REGION 12/01/2017 HEATHER ROSSI DO Ot M19.011 PRIMARY [...] Ot K21.9 GASTRO-ESOPHAGEAL REFLUX DISEASE WITHOUT 12/04/2017 KATIHA ELLIS MD Ot M19.91 PRIMARY OSTEOARTHRITIS, UNSPECIFIED [...] Z98.84 BARIATRIC SURGERY STATUS 04/21/2018 STACY LOWE [employer] SCIENTIST Ot 719.47 JOINT PAIN-ANKLE 04/21/2018 STACY LOWE [employer] SCIENTIST Ot 722.52 LUMB/LUMBOSAC DISC DEGEN 04/21/2018 STACY LOWE [employer] SCIENTIST Ot 736.70 ACQ ANKLE-FOOT DEF NOS 04/21/2018 STACY LOWE [employer]ET[employer] SCIENTIST Ot 737.30 IDIOPATHIC SCOLIOSIS 04/21/2018 STACY LOWE [employer]ET[employer] SCIENTIST Ot 756.12 SPONDYLOLISTHESIS 04/21/2018 ARETHA ARZATE WETLAND SCIENTIST Ot 611.71 MASTODYNIA 04/21/2018 ARETHA ARZATE [employer] SCIENTIST Ot 611.79 SYMPTOMS IN BREAST NEC 04/21/2018 [...] R06.02 SHORTNESS OF BREATH 04/21/2018 STACY LOWE [employer] SCIENTIST Ot 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, THORACIC REGION 04/21/2018 STACY LOWE [employer] SCIENTIST Ot M47.896 OTHER SPONDYLOSIS, LUMBAR REGION 04/21/2018 [...] Z98.84 BARIATRIC SURGERY STATUS 04/24/2018 JH BARAHONA BOTTOM TURNING LATHE TURNER Ot Z98.890 OTHER SPECIFIED POSTPROCEDURAL STATES 06/28/2018 [...] Z98.84 BARIATRIC SURGERY STATUS 06/28/2018 STACY LOWE [employer] SCIENTIST Ot 719.47 JOINT PAIN-ANKLE 06/28/2018 STACY LOWE [employer]ET[employer] SCIENTIST Ot 722.52 LUMB/LUMBOSAC DISC DEGEN 06/28/2018 STACY LOWE WETLAND SCIENTIST Ot 736.70 ACQ ANKLE-FOOT DEF NOS 06/28/2018 STACY LOWE [employer]ETLAND SCIENTIST Ot 737.30 IDIOPATHIC SCOLIOSIS 06/28/2018 STACY LOWE [employer]ETLAND SCIENTIST Ot 756.12 SPONDYLOLISTHESIS 06/28/2018 ARETHA ARZATE WETLAND SCIENTIST Ot 611.71 MASTODYNIA 06/28/2018 ARETHA ARZATE [employer]ETLAND SCIENTIST Ot 611.79 SYMPTOMS IN BREAST NEC 06/28/2018 [...] MAMMOGRAM FOR MALIGNANT NE 10/03/2018 STACY LOWE [employer]ET[employer] SCIENTIST Ot 719.47 JOINT PAIN-ANKLE 10/03/2018 STACY LOWE [employer]ET[employer] SCIENTIST Ot 722.52 LUMB/LUMBOSAC DISC DEGEN 10/03/2018 STACY LOWE WETLAND SCIENTIST Ot 736.70 ACQ ANKLE-FOOT DEF NOS 10/03/2018 STACY LOWE WETLAND SCIENTIST Ot 737.30 IDIOPATHIC SCOLIOSIS 10/03/2018 STACY LOWE [employer]ETLAND SCIENTIST Ot 756.12 SPONDYLOLISTHESIS 10/03/2018 ANOOP MIRANDA DO Ot V54.16 AFTERCARE HEALING TRAUMATIC FX LOWER LEG 10/03/2018 STACY LOWE [employer] SCIENTIST Ot V76.12 OTH SCREEN MAMMO-MALIGN NEOPLASM OF [...] MD, Ot I25.10 ATHSCL HEART DISEASE OF [place] CORONARY 11/21/2018 LADONNA GALLARDO MD, Ot K21.0 GASTRO-ESOPHAGEAL REFLUX DISEASE WITH ES 11/21/2018 LADONNA GALLARDO MD, Ot K25.9 GASTRIC ULCER, UNSP ACUTE OR CHRONIC, 11/21/2018 LADONNA GALLARDO MD, Ot K44.9 DIAPHRAGMATIC HERNIA WITHOUT OBSTRUCTION 11/21/2018 LADONNA GALLARDO MD Ot Z79.82 RAILWAY STATION MANAGER (CURRENT) USE OF ASPIRIN 11/21/2018 LADONNA GALLARDO MD, Ot Z79.899 OTHER RAILWAY STATION MANAGER (CURRENT) DRUG THERAPY 11/21/2018 LADONNA GALLARDO MD, [...] MD, Ot I25.10 ATHSCL HEART DISEASE OF [place] CORONARY 11/26/2018 LADONNA GALLARDO MD Ot K21.0 GASTRO-ESOPHAGEAL REFLUX DISEASE WITH ES 11/26/2018 LADONNA GALLARDO MD, Ot K25.9 GASTRIC ULCER, UNSP ACUTE OR CHRONIC, 11/26/2018 LADONNA GALLARDO MD, Ot K44.9 DIAPHRAGMATIC HERNIA WITHOUT OBSTRUCTION 11/26/2018 LADONNA GALLARDO MD Ot Z79.82 RAILWAY STATION MANAGER (CURRENT) USE OF ASPIRIN 11/26/2018 LADONNA GALLARDO MD Ot Z79.899 OTHER SENIOR LIVING (CURRENT) DRUG THERAPY 11/26/2018 LADONNA GALLARDO MD, [...] MD, Ot I25.10 ATHSCL HEART DISEASE OF [place] CORONARY 11/28/2018 LADONNA GALLARDO MD, Ot K21.0 GASTRO-ESOPHAGEAL REFLUX DISEASE WITH ES 11/28/2018 LADONNA GALLARDO MD, Ot K25.9 GASTRIC ULCER, UNSP ACUTE OR CHRONIC, 11/28/2018 LADONNA GALLARDO MD, Ot K44.9 DIAPHRAGMATIC HERNIA WITHOUT OBSTRUCTION 11/28/2018 LADONNA GALLARDO MD, Ot Z79.82 SENIOR LIVING (CURRENT) USE OF ASPIRIN 11/28/2018 LADONNA GALLARDO MD, Ot Z79.899 OTHER [employer] (CURRENT) DRUG THERAPY 11/28/2018 LADONNA GALLARDO MD, [...] Procedures Code [place] [address] ROUTINE VENIPUNCTURE 10/29/2012 11267 XRAY FOOT RIGHT COMP MIN 3 VIEWS 10/29/2012 Podiatry Tisha Marley 10/29/2012 31972 UA LONG DIP 10/29/2012 67896 URINE DRUG SCREEN (IN-HOUSE ) 10/29/2012 45807 CBC 10/29/2012 13378 CRP 10/30/2012 KEV COMBS 12/18/2012 20396 JOINT INJECTION- INTERMEDIATE JOINT 02/07/2013 84839 ROUTINE VENIPUNCTURE 02/25/2013 60429 A1C (IN-HOUSE) 02/25/2013 59459 CMP 02/25/2013 08420 LIPID PANEL 02/25/[id number] GFR CALC (RESULT ONLY) 02/25/2013 41418 TSH 02/25/2013 26704 MAMMOGRAM DX, ROSITA 03/11/2013 32188 URINE DRUG SCREEN (IN-HOUSE ) 07/03/2013 G0008 FLU ADMINISTRATION ( MEDICARE ONLY) 07/03/2013 [id number] REPLACEMENT OF L SHOULDER JT WITH SYNTH [...] culture - 12/01/17 15:57 Bacterial blood culture [facility] Influenza virus A and B antigen detection - 12/01/17 17:48 FLU RESULT NEGATIVE FOR INFLUENZA A AND B ANTIGENS BY [facility] Complete blood count (CBC) with [...] 7-25 CREATININE 0.75 mg/dL 0.60-0.93 eGFR NON-AFR. LUXEMBOURGER 80 mL/min/1.73m2 > OR=60 eGFR 93 mL/min/1.73m2 [...] 13:47 CULTURE, URINE, ROUTINE SEE NOTE NRG Complete blood count (CBC) with automated white blood cell (WBC) differential - 12/11/18 15:15 Blood leukocytes automated count (number/volume) 12.3 10*3/uL 4.3-11.0 Blood erythrocytes automated count (number/volume) 4.35 10*6/uL 4.35-5.85 Venous blood hemoglobin measurement (mass/volume) 13.0 g/dL 11.5-16.0 Blood hematocrit (volume fraction) 40 % 35-52 Automated erythrocyte mean corpuscular volume 91 [foz_us] 80-99 Automated erythrocyte mean corpuscular hemoglobin (mass per erythrocyte) 30 pg 25-34 Automated erythrocyte mean corpuscular hemoglobin concentration measurement ( mass/volume) 33 g/dL 32-36 Automated erythrocyte distribution width ratio 15.9 % 10.0-14.5 Automated blood platelet count (count/volume) 308 10*3/uL 130-400 Automated blood platelet mean volume measurement 10.0 [foz_us] 7.4-10.4 Automated blood neutrophils/100 leukocytes 67 % 42-75 Automated blood lymphocytes/100 leukocytes 22 % 12-44 Blood monocytes/100 leukocytes 10 % 0-12 Automated blood eosinophils/100 leukocytes 1 % 0-10 Automated blood basophils/100 leukocytes 0 % 0-10 Blood neutrophils automated count (number/volume) 8.3 10*3 1.8-7.8 Blood lymphocytes automated count (number/volume) 2.7 10*3 1.0-4.0 Blood monocytes automated count (number/volume) 1.3 10*3 0.0-1.0 Automated eosinophil count 0.1 10*3/uL 0.0-0.3 Automated blood basophil count (count/volume) 0.0 10*3/uL 0.0-0.1 Comprehensive metabolic panel - 12/11/18 15:15 Serum or plasma sodium measurement (moles/volume) 132 mmol/L 135-145 Serum or plasma potassium measurement (moles/volume) 3.9 mmol/L 3.6-5.0 Serum or plasma chloride measurement (moles/volume) 98 mmol/L 98-107 Carbon dioxide 23 mmol/L 21-32 Serum or plasma anion gap determination (moles/volume) 11 mmol/L 5-14 Serum or plasma urea nitrogen measurement (mass/volume) 20 mg/dL 7-18 Serum or plasma creatinine measurement (mass/volume) 1.77 mg/dL 0.60-1.30 Serum or plasma urea nitrogen/creatinine mass ratio 11 NRG Serum or plasma creatinine measurement with calculation of estimated glomerular filtration rate 28 NRG Serum or plasma glucose measurement (mass/volume) 100 mg/dL 70-105 Serum or plasma calcium measurement (mass/volume) 8.4 mg/dL 8.5-10.1 Serum or plasma total bilirubin measurement (mass/volume) 0.7 mg/dL 0.1-1.0 Serum or plasma alkaline phosphatase measurement (enzymatic activity/volume) 173 U/L 40-136 Serum or plasma aspartate aminotransferase measurement (enzymatic activity/ volume) 97 U/L 5-34 Serum or plasma alanine aminotransferase measurement (enzymatic activity/volume ) 27 U/L 0-55 Serum or plasma protein measurement (mass/volume) 5.6 g/dL 6.4-8.2 Serum or plasma albumin measurement (mass/volume) 2.9 g/dL 3.2-4.5 CALCIUM CORRECTED 9.3 mg/dL 8.5-10.1 Magnesium - 12/11/18 15:15 Magnesium 1.8 mg/dL 1.8-2.4 Serum or plasma amylase measurement (enzymatic activity/volume) - 12/11/18 15: 15 Serum or plasma amylase measurement (enzymatic activity/volume) 33 U /L 25-125 Lipase - 12/11/18 15:15 Lipase 18 U/L 8-78 Serum or plasma lithium measurement (moles/volume) - 12/11/18 15:15 BNP level 32.1 pg/mL <100.0 Blood lactic acid measurement (moles/volume) - 12/11/18 15:52 Blood lactic acid measurement (moles/volume) 1.37 mmol/L 0.50-2.00 Complete urinalysis with reflex to culture - 12/11/18 16:55 Urine color determination YELLOW NRG Urine clarity determination CLEAR NRG Urine pH measurement by test strip 5 5-9 Specific gravity of urine by test strip 1.010 1.016- 1.022 Urine protein assay by test strip, semi-quantitative NEGATIVE NEGATIVE Urine glucose detection by automated test strip NEGATIVE NEGATIVE Erythrocytes detection in urine sediment by light microscopy NEGATIVE NEGATIVE Urine ketones detection by automated test strip NEGATIVE NEGATIVE Urine nitrite detection by test strip NEGATIVE NEGATIVE Urine total bilirubin detection by test strip 2+ NEGATIVE Urine urobilinogen measurement by automated test strip (mass/volume) 1 mg/dL NORMAL Urine leukocyte esterase detection by dipstick 3+ NEGATIVE Automated urine sediment erythrocyte count by microscopy (number/high power field) NONE NRG Automated urine sediment leukocyte count by microscopy (number/high power field ) [HPF] NRG Bacteria detection in urine sediment by light microscopy TRACE NRG Squamous epithelial cells detection in urine sediment by light microscopy 5-10 NRG Crystals detection in urine sediment by light microscopy NONE NRG Casts detection in urine sediment by light microscopy PRESENT NRG Mucus detection in urine sediment by light microscopy NEGATIVE NRG Complete urinalysis with reflex to culture YES NRG Hyaline casts detection in urine sediment by light microscopy >50 NRG Encounters ACCT No. Visit Date/Time Discharge Status Pt. Type Provider Facility Loc./Unit Complaint [id number] 07/03/2013 10:48:00 07/03/2013 23:59:59 CLS Outpatient JUMA ARZATE APRNA S [id number] 07/03/2013 10:48:00 07/03/2013 23:59:59 CLS Outpatient JUMA ARZATE APRNA S [id number] 01/17/2013 12:22:00 01/17/2013 23:59:59 CLS Outpatient [id number] 12/13/2012 12:05:00 12/13/2012 23:59:59 CLS Outpatient GABRIELLE PANCHAL DO [id number] 11/29/2012 10:17:00 11/29/2012 23:59:59 CLS Outpatient [id number] 10/29/2012 12:20:00 10/29/2012 23:59:59 CLS Outpatient LIZZY ARZATE APRNNDA S [id number] 09/27/2012 09:04:00 09/27/2012 23:59:59 CLS Outpatient ROSITA PACHECO MD 08/15/2012 10:23:00 08/15/2012 23:59:59 CLS Outpatient JUMA ARZATE APRNA S [id number] 03/29/2013 13:29:00 Document Registration [id number] 03/07/2013 12:28:00 Document Registration [id number] 02/25/2013 14:10:00 Document Registration [id number] 02/07/2013 13:42:00 Document Registration [id number] 12/03/2018 07:59:00 12/03/2018 23:59:59 CLS Outpatient BILL LOZOYA [facility] CARD CAROTID ARTERY STENOSIS [id number] 11/21/2018 09:04:00 11/21/2018 13:00:00 DIS Outpatient LADONNA GALLARDO MD [facility] ENDO ABD PAIN/N V/REFLUX [id number] 11/19/2018 05:54:00 11/19/2018 15:05:00 DIS Outpatient LADONNA GALLARDO MD [facility] PREOP EGD [id number] 11/06/2018 15:57:00 11/06/2018 23:59:59 CLS Outpatient BILL LOZOYA [facility] CARD CAROTID ARTERY STENOSIS [id number] 09/25/2018 14:32:00 09/25/2018 23:59:59 CLS Preadmit NEERU CANO MD [facility] RAD LUMBAR RADICULOPATHY M54.16 [id number] 08/28/2018 13:00:00 08/28/2018 23:59:59 CLS Outpatient NEERU CANO MD [facility] RT COPD [id number] 08/28/2018 12:39:00 08/28/2018 23:59:59 CLS Preadmit NEERU CANO MD [facility] RAD CHRONIC OBSTRUCTIVE PULMONARY DISEASE [id number] 08/07/2018 08:20:00 08/07/2018 23:59:59 CLS Outpatient NEERU CANO MD [facility] RAD BREAST CANCER SCREENING [id number] 07/24/2018 13:00:00 07/24/2018 13:00:00 CAN Preadmit HEATHER ROSSI DO [facility] REHAB LT SHOULDER PAIN CERVICAL SPONDYLOSIS CERVICAL DDD [id number] 07/05/2018 13:03:00 07/23/2018 13:24:00 DIS Outpatient HEATHER ROSSI DO [facility] REHAB LT SHOULDER PAIN CERVICAL SPONDYLOSIS CERVICAL DDD [id number] 07/05/2018 16:25:00 07/07/2018 14:30:00 DIS Inpatient KATHIA ELLIS MD [facility] 4TH HYPOXIA [id number] 06/27/2018 22:48:00 06/28/2018 01:43:00 DIS Emergency SHAVONNE COLLINS, AIRAM Chandra [facility] ER FALL/L SIDE PAIN [id number] 04/21/2018 16:00:00 04/21/2018 18:15:00 DIS Emergency JH BARAHONA APRN [facility] ER HIP PAIN,FALL,NECK PAIN, LOSS OF CONSCIOUSNESS [id number] 01/05/2018 07:50:00 01/05/2018 12:05:00 DIS Outpatient MARK STANLEY MD [facility] ENDO DYSPHAGIA/EPIGASTRIC LUQ PAIN/HX OF COLON POLYP [id number] 01/01/2018 05:36:00 01/01/2018 15:34:00 DIS Outpatient MARK STANLEY MD [facility] PREOP COLONOSCOPY/EGD [id number] 12/01/2017 18:00:00 12/04/2017 15:00:00 DIS Inpatient KATHIA ELLIS MD [facility] 4TH LLL PNA [id number] 11/21/2017 05:49:00 11/21/2017 23:59:59 CLS Outpatient MARK STANLEY MD [facility] PREOP COLONOSCOPY/EGD [id number] 06/30/2016 12:48:00 06/30/2016 23:59:59 CLS Outpatient HEATHER ROSSI DO [facility] RAD RT SHOULDER PAIN [id number] 05/30/2016 12:59:00 05/30/2016 15:27:00 DIS Emergency FRANCY VERDIN DO [facility] ER RIGHT SHOULDER PAIN [id number] 03/09/2016 12:28:00 04/04/2016 11:55:00 DIS Outpatient HEATHER ROSSI DO [facility] REHAB SHOULDER PAIN [id number] 02/15/2016 13:46:00 02/15/2016 23:59:59 CLS Outpatient ABDELRAHMAN COLLINS, CADEN Guerrero [facility] CARD DYSPNEA ON EXERTION,HTN, HLP,CAROTID ARTERY BRUIT [id number] 01/27/2016 11:28:00 01/27/2016 23:59:59 CLS Outpatient ENID DOHEATHER [facility] RAD RIGHT LEG PAIN AND SWELLING [id number] 12/25/2015 16:17:00 12/29/2015 11:45:00 DIS Inpatient CAROLINA COLLINS, LEANDRO Reyes [facility] 4TH ACUTE GASTROINTERITIS, DEHYDRATION [id number] 12/08/2015 05:46:00 12/10/2015 11:00:00 DIS Inpatient ENID DO, HEATHER Frank [facility] 4TH RIGHT SHOULDER OSTEOARTHRITIS [id number] 11/25/2015 10:04:00 11/25/2015 23:59:59 CLS Outpatient ENID DO, HEATHER Frank [facility] PREOP RIGHT SHOULDER OSTEOARTHRITIS [id number] 11/17/2015 17:35:00 11/17/2015 19:14:00 DIS Emergency SHAVONNE COLLINS, AIRAM Chandra [facility] ER RT ARM PAIN,FOOT PAIN [id number] 10/21/2015 14:49:00 10/21/2015 18:54:00 DIS Emergency GWEN COLLINS, MATT Oneill [facility] ER POSS CVA [id number] 10/06/2015 09:33:00 10/06/2015 23:59:59 CLS Outpatient ENID DRUMMOND HEATHER Frank [facility] RAD RTC TEAR RT SHOULDER [id number] 10/01/2015 06:51:00 10/01/2015 23:59:59 CLS Outpatient LEANDRO FIGUEROA MD [facility] RAD BACK PAIN POST FALL [id number] 09/11/2015 13:44:00 09/11/2015 23:59:59 CLS Outpatient STACY LOWE [facility] RAD THORACIC AND LUMBAR BACK PAIN [id number] 09/11/2015 13:37:00 09/11/2015 23:59:59 CLS Outpatient BILLY CARO APRN [facility] RT SOB [id number] 08/04/2015 14:51:00 08/05/2015 17:43:00 DIS Inpatient ELIO LEA DO [facility] ICU HEAD INJURY W/ CONCUSSION INTRACTABLE NAUSEA [id number] 04/28/2015 12:39:00 05/11/2015 11:47:00 DIS Outpatient HEATHER ROSSI DO [facility] REHAB S/P L TOTAL SHOULDER [id number] 04/27/2015 09:47:00 04/27/2015 23:59:59 CLS Outpatient LEANDRO FIGUEROA MD [facility] RAD SCREENING [id number] 10/14/2014 12:52:00 10/14/2014 16:09:00 DIS Emergency FRANCY VERDIN DO [facility] ER POSSIBLE STROKE [id number] 08/11/2014 09:44:00 09/16/2014 15:11:00 DIS Outpatient STACY LOWE [facility] REHAB R ANKLE AND BACK PAIN [id number] 08/06/2014 07:52:00 08/06/2014 12:05:00 DIS Outpatient LADONNA GALLARDO MD [facility] SDC ABD PAIN RIGHT LOWER QUADRANT [id number] 07/31/2014 07:22:00 07/31/2014 23:59:59 CLS Outpatient LADONNA GALLARDO MD [facility] PREOP ABD PAIN RIGHT LOWER QUADRANT [id number] 05/09/2014 11:01:00 05/09/2014 23:59:59 CLS Outpatient STACY LOWE [facility] RAD BACK PAIN,R ANKLE PAIN [id number] 04/17/2014 14:28:00 04/17/2014 23:59:59 CLS Outpatient STACY LOWE [facility] RAD SCREENING [id number] 04/11/2014 17:46:00 04/11/2014 20:21:00 DIS Emergency FRANCY VERDIN DO [facility] ER FELL 04/09/14 [id number] 03/13/2014 13:52:00 03/15/2014 12:00:00 DIS Inpatient ANOOP MIRANDA DO [facility] CSD CHEST PAIN [id number] 02/11/2014 13:48:00 02/11/2014 23:59:59 CLS Outpatient [id number] 12/19/2013 13:10:00 12/19/2013 23:59:59 CLS Outpatient [id number] 08/09/2013 11:36:00 08/09/2013 23:59:59 CLS Outpatient ANOOP MIRANDA DO [facility] RAD HX OF R ANKLE FX,NAUN REMOVAL [id number] 07/01/2013 05:27:00 07/01/2013 09:10:00 DIS Emergency MATT HIDALGO MD [facility] ER FALL [id number] 04/22/2013 12:55:00 05/01/2013 14:42:00 DIS Outpatient KEV PEREZ [employer] 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 [facility] REHAB L SHOULDER IMPINGEMENT/ R ELBOW LATERAL EPICONDYLIT [id number] 03/19/2013 12:02:00 03/19/2013 23:59:59 CLS Outpatient CADEN QUICK MD [facility] RAD CP,DYSPNEA [id number] 03/13/2013 13:10:00 03/13/2013 23:59:59 CLS Outpatient CADEN QUICK MD [facility] CARD CP,DYSPNEA [id number] 02/27/2013 14:40:00 02/27/2013 23:59:59 CLS Outpatient ARETHA ARZATE [facility] RAD SCREENING [id number] 12/15/2018 14:00:00 PEN Preadmit CADEN QUICK MD [facility] CATH ABN STRESS [id number] 12/11/2018 14:54:00 ACT Emergency SHAVONNE COLLINS, AIRAM Chandra [facility] ER LOW BP,BLURRED VISION,FALLING [id number] 02/18/2015 09:30:00 Document Registration [id number] 02/18/2015 09:30:00 Document Registration [id number] 12/31/2014 09:04:00 Document Registration [id number] 12/15/2014 15:26:00 Document Registration [id number] 12/19/2012 12:07:00 Document Registration [id number] 12/05/2012 00:17:00 Document Registration [id number] 09/15/2012 10:56:00 Document Registration [id number] 01/18/2012 11:37:00 Document Registration [id number] 11/01/2011 11:28:00 Document Registration [id number] 10/20/2011 15:54:00 Document Registration [id number] 09/05/2011 10:22:00 Document Registration [id number] 07/06/2011 19:52:00 Document Registration [id number] 06/08/2011 15:24:00 Document Registration [id number] 03/27/2011 15:09:00 Document Registration [id number] 03/23/2011 16:19:00 Document Registration [id number] 12/22/2010 09:11:00 Document Registration [id number] 09/01/2010 10:32:00 Document Registration [id number] 05/03/2010 15:07:00 Document Registration [id number] 04/21/2010 14:07:00 Document Registration [id number] 08/04/2015 10:42:13 ACT Document Registration [id number] 12/11/2018 13:20:00 ACT Outpatient RACHAEL COLLINS[facility] [id number] 08/15/2018 11:50:00 Document Registration [id number] 05/04/2018 10:20:00 Document Registration [id number] 04/05/2018 09:20:00 Document Registration
--- NOTE | 2018-12-11 22:15 | NUR ---
AjLynnette admitted to room 408-1, with an admitting diagnosis of UTI, SEPSIS, ORTHOSTATIC HYPOTENSION, on 12/11/18 from ED via [facility], accompanied by STAFF.LYNNETTE BEAR introduced to surroundings, call light, bed controls, phone, TV, temperature control, lights, meal times, smoking policy, visitor policy, side rail policy, bathrooms and showers. Patient Rights given to patient in the handbook.LYNNETTE BEAR verbalizes understanding that [facility] is not responsible for the loss or damage to any personal effects or valuables that are kept in the patients posession during their hospitalization. The Patient Care Plans were discussed with the PT. LYNNETTE BEAR verbalizes understanding of Interdisciplinary Patient Education. Patient and/or family were informed about the Rapid Response Team and its purpose.
[2018-12-11 22:22] VITALS: BP 123/80
[2018-12-11] MEDS ORDERED: ONDANSETRON 4 MG/2 ML (SDV) Z0FRAN IV PRN (23:00)
[2018-12-11] MEDS: NS IV 1000 ML 1,000 ML IV SCH (23:07)
[2018-12-11 23:15] VITALS: BP 108/70
[2018-12-11] MEDS ORDERED: CATHETER FLUSH 10 ML SYR IV PRN (23:15)
[2018-12-12] VITALS (8 sets, daily range): BP systolic 105–135; BP diastolic 66–78
[2018-12-12 04:30] LABS: BASOPHILS % (AUTO) 0 % (0-10); EOSINOPHILS # (AUTO) 0.1 10^3/uL (0.0-0.3); EOSINOPHILS % (AUTO) 2 % (0-10); HEMATOCRIT 38 % (35-52); HEMOGLOBIN 12.1 G/DL (11.5-16.0); LYMPHOCYTES # (AUTO) 1.6 X 10^3 (1.0-4.0); LYMPHOCYTES % (AUTO) 24 % (12-44); MEAN CORPUSCULAR HEMOGLOBIN 30 PG (25-34); MEAN CORPUSCULAR HGB CONC 32 G/DL (32-36); MEAN CORPUSCULAR VOLUME 93 FL (80-99); MONOCYTES # (AUTO) 0.6 X 10^3 (0.0-1.0); MONOCYTES % (AUTO) 8 % (0-12); NEUTROPHILS # (AUTO) 4.3 X 10^3 (1.8-7.8); NEUTROPHILS % (AUTO) 65 % (42-75); PLATELET COUNT 231 10^3/uL (130-400); RED CELL DISTRIBUTION WIDTH 15.7 % (10.0-14.5); WHITE BLOOD COUNT 6.7 10^3/uL (4.3-11.0)
[2018-12-12 04:51] LABS: ALBUMIN 2.6 GM/DL (3.2-4.5); BILIRUBIN,TOTAL 0.5 MG/DL (0.1-1.0); CALCIUM 7.9 MG/DL (8.5-10.1); CREATININE SERUM 0.98 MG/DL (0.60-1.30); POTASSIUM 3.5 MMOL/L (3.6-5.0); TOTAL PROTEIN 4.7 GM/DL (6.4-8.2)
[2018-12-12] MEDS: CATHETER FLUSH 10 ML SYR IV SCH ×3 (05:42→21:06)
[2018-12-12] MEDS: NS IV 1000 ML 1,000 ML IV SCH ×2 (05:42→12:38)
[2018-12-12] MEDS ORDERED: FLU QUADRIvalent (5+ YOA) 2018-2019 (AFLURIA) 0.5 ML IM ONE (07:15)
[2018-12-12] MEDS ORDERED: KCL 20 MEQ TAB (K-DUR) PO NR (09:00)
[2018-12-12] MEDS ORDERED: TIOT18CA2 INH (10:51)
[2018-12-12] MEDS ORDERED: VITA1TAB17 PO (10:51)
[2018-12-12] MEDS ORDERED: SUCR1TAB PO (10:51)
[2018-12-12] MEDS ORDERED: VORT20TA PO (10:51)
[2018-12-12] MEDS ORDERED: FLUT1BLS INH (10:51)
[2018-12-12] MEDS ORDERED: POTA20TA15 PO (10:51)
[2018-12-12] MEDS ORDERED: DICL75TA2 PO (10:51)
[2018-12-12] MEDS ORDERED: EZET10TA27 PO (10:51)
[2018-12-12] MEDS ORDERED: ONDA4TAB10 PO (10:51)
[2018-12-12] MEDS ORDERED: BUSP10TA95 PO (11:11)
--- NOTE | 2018-12-12 15:09 | Physical Therapy Evaluation ---
PT Evaluation-General Medical Diagnosis Admission Date Dec 11, 2018 at 21:25 Medical Diagnosis: sepsis;uti Onset Date: Dec 11, 2018 Therapy Diagnosis Therapy Diagnosis: weakness Height/Weight Height (Feet): 4 Height (Inches): 10.00 Weight (Pounds): 166 Weight (Ounces): 5.0 Precautions Precautions/Isolations: Fall Prevention, Standard Precautions Weight Bear Status Right Lower Extremity: Right Weight Bearing/Tolerated Left Lower Extremity: Left Weight Bearing/Tolerated Referral Physician: Ulises Reason for Referral: Evaluation/Treatment Medical History Pertinent Medical History: COPD, DM, GERD, OA Additional Medical History B TKR, gastric bypass, anxiety, depression Current History Pt admitted due to reports of dizziness that resulted in a fall; she was found to have a UTI/sepsis. Reviewed History: Yes Social History Home: Single Level Entry Into Home: Stairs With Railing Prior/Core FIM Prior Level of Function Therapy Code Descriptions/Definitions Functional [place] Measure: 0=Not Assessed/NA 4=Minimal Assistance 1=Total Assistance 5=Supervision or Setup 2=Maximal Assistance 6=Modified [place] 3=Moderate Assistance 7=Complete [place] Therapy Quality Codes: 6 Independent with activity with or without an assistive device 5 Patient requires set up or clean up by helper. Patient completes activity by themselves 4 Supervision or touching assist (CGA). [place] provide cues , steadying assist 3 The helper provides less than half the effort to complete the activity 2 The helper provides more than half the effort to complete the activity 1 Dependent. The helper does all the effort to complete an activity 7 Patient refused to complete or attempt activity 9 The patient did not perform the activity before the current illness or injury 88 Not attempted due to Medical conditions or safety concerns Functional Abilities and Goals: Independent: Patient completed the activities by him/herself, with or without an assistive device, with no assistance from a helper. Needed Some Help: Patient needed partial assistance from another person to complete activities. Dependent: A helper completed the activities for the patient. Unknown: Not Applicable: Bed Mobility: 6 Transfers (B,C,W/C) (FIM): 6 Gait: 6 (FWW) Indoor Mobility (Ambulation): Independent Prior Devices Use: Walker Pt does still drive PT Evaluation-Current Subjective Pt reprots she is feeling a bit nauseated this afternoon, but agreeable to PT Pain Numeric Pain Scale: 0-No Pain Location: No Pain Reported Objective Patient Orientation: Person, Place, Time, Situation Problem Solving: Fair ROM/Strength ROM Lower Extremities WNL Strength Lower Extremities WFL Integumentary/Posture Integumentary Refer to nursing notes; skin tear left lower arm; bruising on left cheek/eye Bowel Incontinence: No Bladder Incontinence: No Posture normal and symmetrical Neuromuscular (Tone, Coordination, Reflexes) no noted functional deficits Sensory Vision: Functional Hearing: Functional Hand Dominance: Right Sensation Right Lower Extremit: Intact Sensation Left Lower Extremity: Intact Transfers Therapy Code Descriptions/Definitions Functional [place] Measure: 0=Not Assessed/NA 4=Minimal Assistance 1=Total Assistance 5=Supervision or Setup 2=Maximal Assistance 6=Modified [place] 3=Moderate Assistance 7=Complete [place] Supine to/from Sit: 5 (SBA for safety) Gait Mode of Locomotion: Walk Anticipated Mode of Locomotion: Walk Gait (FIM): 4 (CGA for safety) Distance (FIM): 3=150 ft Gait Level of Assist: 4 Gait Assistive Device: FWW Comments/Gait Description safe and steady gait. Balance Sitting Static: Good Sitting Dynamic: Good Standing Static: Good Standing Dynamic: Good Assessment/Needs Pt presents with reports of dizziness that resulted in a fall recently. Her transfer and gait were safe this date, but will continue to monitor for safety instruction and progression of mobiotiy to decrease fall risk and prepare her for discharge home. Rehab Potential: Good PT Tractor Operator Goals Mcfp Goals PT Tractor Operator Goals Time Frame: Dec 17, 2018 Transfers (B,C,W/C) (FIM): 7 Gait (FIM): 6 PT Plan Problem List Problem List: Activity Tolerance, Functional Strength, Safety, Balance, Gait, Transfer Treatment/Plan Treatment Plan: Continue Plan of Care Treatment Plan: Bed Mobility, Education, Functional Activity Manuel, Functional Strength, Gait, Safety, Transfers Treatment Duration: Dec 17, 2018 Frequency: 6 times per week Estimated Hrs Per Day: .25 hour per day Patient and/or Family Agrees t: Yes Safety Risks/Education Patient Education: Gait Training, Safety Issues Teaching Recipient: Patient Teaching Methods: Discussion Response to Teaching: Reinforcement Needed Time/GCodes Time In: 1445 Time Out: 1505 Total Billed Treatment Time: 20 Total Billed Treatment visit EVL 20 YAMILE AGUILLON PT Dec 12, 2018 15:09
[2018-12-12] MEDS ORDERED: ENOXAPARIN 40 MG/0.4 ML (LOVENOX) SYR SC SCH (15:15)
--- NOTE | 2018-12-12 15:16 | NUR ---
Pastoral care visit, provided support and prayer.
--- NOTE | 2018-12-12 15:42 | History & Physicial ([facility]) ---
HPI History of Present Illness: 73 yo F that presented to ER with dizziness and found to be hypotension. Patient states that the last couple of days she was getting dizzy anytime she stood up. Denies any fever or chills. Patient has extensive medication list that could be contributing to dizziness and multiple medications that can increase fall risk. Patient stood up from the toliet and got dizzy and fell and hit her head on the wall. Denies any pain this AM. States that she has stood up to get to chair and states that the dizziness has resolved. Denies any cough, shortness of breath or chest pain. Source: patient, RN/MD, old records Exam Limitations: no limitations Date seen by provider: Dec 12, 2018 Time Seen by Provider: 09:30 Attending Physician Karena Montgomery MD PCP Bernardo Larios MD Consult Date of Admission Dec 11, 2018 at 21:25 Home Medications Home Medications Reviewed patient Home Medication Reconciliation performed by pharmacy medication reconciliations agricultural engineering technicians and/or nursing. Patients Allergies have been reviewed. Allergies Coded Allergies: Penicillins (Unverified Allergy, Mild, PT DOES NOT REMEMBER RXN > 30 YRS, 04/21/18) Pt has received Cefepime & Ceftriaxone w/o issue nalbuphine (Unverified Allergy, Mild, Pt has received Lortab & Morphine in the past w/o issue, 11/21/18) [id number] Hx Patient Social History Alcohol Use: Denies Use Recreational Drug Use: No Smoking Status: Never a Smoker Former smoker/When Quit: Aug 15, 1991 Recent Foreign Travel: No Contact w/other who traveled: No Recent Hopitalizations: No Recent Infectious Disease Expo: No Physical Abuse Screen: No Sexual Abuse: No Immunizations Up To Date Tetanus Booster (TDap): More than 5yrs Date of Pneumonia Vaccine: Jun 23, 2017 Date of Influenza Vaccine: Aug 02, 2018 Past Medical History PMHx: Chronic back pain on chronic opiates Sees Dr. Hernandez for heart GERD HLD Anxiety/Depression PSurgHx: Hysterectomy Spinal stimulator Bilateral shoulder replacements Family Medical History Significant Family History: Heart Disease, Cancer, Hypertension, Psychiatric Problems, Vascular Disease Family History: Alzheimer's disease (MOTHER) Cancer (FATHER LIVER [place] SISTER [place]) Cardiovascular disease G8 SISTER Dementia FH: lupus (SISTER) Family history: Cardiovascular disease Family history: Diabetes mellitus Family history: Hypertension Heart disease Review of Systems ([facility]) Constitutional: No chills, No fever; weakness EENTM: eye pain (Right eye bruising present); No blurred vision, No double vision Respiratory: no symptoms reported; No cough, No dyspnea on exertion, No short of breath Cardiovascular: syncope Gastrointestinal: no symptoms reported; No abdominal pain, No constipation, No diarrhea, No nausea, No vomiting Genitourinary: no symptoms reported : No Musculoskeletal: back pain (chronic) Skin: no symptoms reported; No lesions, No rash Psychiatric/Neurological: Headache Reviewed Test Results Reviewed Test Results Lab Laboratory Tests Test 12/11/18 15:52 12/11/18 16:55 12/12/18 04:00 Range/Units Lactic Acid Level 1.37 0.50-2.00 MMOL/L Urine Color YELLOW Urine Clarity CLEAR Urine pH 5 5-9 Urine Specific [place] 1.010 L 1.016-1.022 Urine Protein NEGATIVE NEGATIVE Urine Glucose (UA) NEGATIVE NEGATIVE Urine Ketones NEGATIVE NEGATIVE Urine Nitrite NEGATIVE NEGATIVE Urine Bilirubin 2+ H NEGATIVE Urine Urobilinogen 1 NORMAL MG/DL Urine Leukocyte Esterase 3+ H NEGATIVE Urine RBC (Auto) NEGATIVE NEGATIVE Urine RBC NONE /HPF Urine WBC 25-50 H /HPF Urine Squamous Epithelial Cells 5-10 /HPF Urine Crystals NONE /LPF Urine Bacteria TRACE /HPF Urine Casts PRESENT /LPF Urine Hyaline Casts >50 H /LPF Urine Mucus NEGATIVE /LPF Urine Culture Indicated YES White Blood Count 6.7 4.3-11.0 10^3/uL Red Blood Count 4.05 L 4.35-5.85 10^6/uL Hemoglobin 12.1 11.5-16.0 G/DL Hematocrit 38 35-52 % Mean Corpuscular Volume 93 80-99 FL Mean Corpuscular Hemoglobin 30 25-34 PG Mean Corpuscular Hemoglobin Concent 32 32-36 G/DL Red Cell Distribution Width 15.7 H 10.0-14.5 % Platelet Count 231 130-400 10^3/uL Mean Platelet Volume 10.0 7.4-10.4 FL Neutrophils (%) (Auto) 65 42-75 % Lymphocytes (%) (Auto) 24 12-44 % Monocytes (%) (Auto) 8 0-12 % Eosinophils (%) (Auto) 2 0-10 % Basophils (%) (Auto) 0 0-10 % Neutrophils # (Auto) 4.3 1.8-7.8 X 10^3 Lymphocytes # (Auto) 1.6 1.0-4.0 X 10^3 Monocytes # (Auto) 0.6 0.0-1.0 X 10^3 Eosinophils # (Auto) 0.1 0.0-0.3 10^3/uL Basophils # (Auto) 0.0 0.0-0.1 10^3/uL Sodium Level 139 135-145 MMOL/L Potassium Level 3.5 L 3.6-5.0 MMOL/L Chloride Level 109 H 98-107 MMOL/L Carbon Dioxide Level 23 21-32 MMOL/L Anion Gap 7 5-14 MMOL/L Blood Urea Nitrogen 16 7-18 MG/DL Creatinine 0.98 0.60-1.30 MG/DL Estimat Glomerular Filtration Rate 56 BUN/Creatinine Ratio 16 Glucose Level 85 70-105 MG/DL Calcium Level 7.9 L 8.5-10.1 MG/DL Corrected Calcium 9.0 8.5-10.1 MG/DL Total Bilirubin 0.5 0.1-1.0 MG/DL Aspartate Amino Transf (AST/SGOT) 53 H 5-34 U/L Alanine Aminotransferase (ALT/SGPT) 24 0-55 U/L Alkaline Phosphatase 150 H 40-136 U/L Total Protein 4.7 L 6.4-8.2 GM/DL Albumin 2.6 L 3.2-4.5 GM/DL Radiology Date of Exam: 12/11/18 CT HEAD/CERVICAL SPINE WO CLINICAL INDICATION: Patient fell face forward striking the lateral canthus and right orbit. Patient has headache and neck pain. EXAM: Head CT without IV contrast. Axial CT scan of the cervical spine with sagittal and coronal reformations. COMPARISON: CT scan of the head and cervical spine dated 04/21/2018. FINDINGS: HEAD CT: There is no evidence of acute cerebral infarct, intracranial hemorrhage, or gross mass effect. There is diffuse brain parenchymal volume loss seen. There are subtle areas of focal low-attenuation white matter changes involving both cerebral hemispheres, likely representing chronic small vessel ischemic disease. There is normal issa/white matter distinction. There is no significant midline shift or herniation. There is no evidence of hydrocephalus. The basal cisterns are unremarkable. There is a small area of extracranial soft tissue swelling in the right forehead and superior/lateral right periorbital region. There is no skull fracture. The orbits and globes are intact. Otherwise, the skull, extracranial soft tissue, and orbits are unremarkable. The paranasal sinuses are unremarkable. The temporal bones show no significant abnormality. CT CERVICAL SPINE: There is streak artifact which obscures the inferior aspect of the C6 vertebra and most of the C7 and T1 vertebra limiting evaluation. There is no evidence of acute cervical spine fracture. There is stable grade 1 anterolisthesis of C2 on C3 and C3 on C4. There is no significant change to the multilevel cervical spine degenerative disease with severe loss of intervertebral disc height at the C4-C5 level with endplate irregularity, Schmorl's nodes, and sclerosis. Stable moderate loss of intervertebral disc height involving the C5-C6 and C6-C7 levels. Stable kyphosis of the cervical spine posture. IMPRESSION: 1. There is no evidence of acute intracranial process. There is no intracranial hemorrhage. 2. There is a small area of extracranial soft tissue swelling in the right frontal and right periorbital region. There is no skull fracture. The orbits and globes are intact. 3. Stable degenerative disease of the cervical spine with no acute fracture. There is stable grade 1 anterolisthesis of C2 on C3 and C3 on C4 with kyphosis of the cervical spine posture. 4. Stable age-related brain parenchymal changes. Date of Exam: 12/11/18 CT CHEST/ABDOMEN/PELVIS WO PROCEDURE: CT chest, abdomen, and pelvis without contrast. TECHNIQUE: Multiple contiguous axial images were obtained through the chest, abdomen, and pelvis without the use of intravenous contrast. INDICATION: Fall with right lateral chest pain as well as lateral abdominal pain. COMPARISON: Correlation is made with prior CT chest from 10/21/2015. FINDINGS: CT chest: No mediastinal hematoma is identified. No pericardial or pleural fluid is identified. No parenchymal contusion or pneumothorax is detected. Micronodules in the right upper and right lower lobe are stable. There is some chronic atelectasis or scarring in the lingula. No definite rib fracture is identified. IMPRESSION: Unremarkable noncontrast CT of the chest. CT abdomen and pelvis: No definite focal liver or splenic laceration is seen, although evaluation is limited without intravenous contrast. No perihepatic or perisplenic fluid is detected. The gallbladder is surgically absent. There are postop changes to the stomach. Pancreas is unremarkable. No adrenal hematoma is seen. No perinephric fluid collection is identified. Aorta is calcified but nonaneurysmal. There is no evidence of a hemoperitoneum. Visualized bladder is unremarkable. Moderate stool in the colon is identified. Small bowel loops are normal in caliber. Postsurgical changes in the lumbar spine are noted. No acute bony abnormality is seen. There does appear to be some thickening of the musculature of the right lateral abdominal wall, perhaps owing to some hematoma formation. No well-formed fluid collection is seen. There is some mild associated stranding in the subcutaneous fat at this location. IMPRESSION: 1. No evidence of abdominal or pelvic visceral injury. There is some thickening of the right lateral abdominal wall musculature, perhaps owing to some bruising or hematoma formation. No other significant abnormality is detected. Physical Exam-([facility]) Physical Exam Vital Signs VS - Last 72 Hours, by Label 12/11/18 12/11/18 12/11/18 12/11/18 14:58 15:58 17:04 18:33 Temp 97.6 Pulse 97 83 82 71 Resp 18 18 18 B/P (MAP) 58/43 (48) 93/67 (76) 104/65 (78) 122/78 (93) Pulse Ox 94 94 94 O2 Delivery Room Air Room Air Room Air 12/11/18 12/11/18 12/11/18 12/11/18 20:34 21:50 22:15 22:22 Temp 98.2 98.2 97.9 Pulse 95 80 78 Resp 18 B/P (MAP) 110/68 90/60 (70) 123/80 Pulse Ox 94 98 100 O2 Delivery Nasal Cannula Room Air Nasal Cannula Nasal Cannula O2 Flow Rate 2.00 2.00 12/11/18 12/11/18 12/12/18 12/12/18 23:10 23:15 00:15 01:00 Temp 98.4 98.4 Pulse 70 75 72 69 Resp 20 20 B/P (MAP) 108/70 (83) 112/70 (84) Pulse Ox 92 100 O2 Delivery Nasal Cannula Nasal Cannula O2 Flow Rate 2.00 2.00 12/12/18 12/12/18 12/12/18 12/12/18 01:15 02:15 03:59 07:00 Temp 98.7 98.2 97.9 Pulse 67 69 65 65 Resp 20 20 18 B/P (MAP) 105/69 (81) 113/75 (88) 108/71 (83) Pulse Ox 100 100 100 O2 Delivery Nasal Cannula Nasal Cannula Nasal Cannula O2 Flow Rate 2.00 2.00 2.00 12/12/18 12/12/18 12/12/18 12/12/18 07:30 08:00 08:04 11:23 Temp 97.3 97.5 Pulse 69 70 Resp 18 18 B/P (MAP) 118/70 (86) 117/76 (90) Pulse Ox 98 95 O2 Delivery Nasal Cannula Room Air Nasal Cannula Room Air O2 Flow Rate 2.00 2.00 12/12/18 12/12/18 13:00 15:00 Temp 97.0 Pulse 70 74 Resp 18 B/P (MAP) 119/66 (83) Pulse Ox 98 O2 Delivery Room Air Capillary Refill : Less Than 3 Seconds General Appearance: WD/WN, no apparent distress HEENT: PERRL/EOMI, other (Bruising around right eye, mild ttp) Neck: non-tender, full range of motion, supple, normal inspection Respiratory: chest non-tender, lungs clear, normal breath sounds, no respiratory distress, no accessory muscle use Cardiovascular: normal peripheral pulses, regular rate, rhythm, no edema, no murmur Gastrointestinal: normal bowel sounds, non tender, soft, no organomegaly; No guarding, No rebound, No tenderness Extremities: no pedal edema, no calf tenderness, normal capillary refill Neurologic/Psychiatric: oil expeller II-XII nml as tested, no motor/sensory deficits, alert, normal mood/affect, oriented x 3 Skin: ecchymosis (Left lower arm) Lymphatic: no adenopathy Assessment/Plan Assessment/Plan Admission Status: Inpatient Order (span 2 midnights) Reason for Inpatient Admission: Needs close monitoring with low blood pressures and fall (1) Sepsis Status: Acute Assessment & Plan: - Initially hypotensive in ER that responded well to IVFs, received 30mg/kg of IVFs, Continue Rocephin, cultures pending, HDS this AM, will stop IVFs and encourage PO hydration Qualifiers: Qualified Codes: A41.9 - Sepsis, unspecified organism (2) Fall Status: Acute Assessment & Plan: - Bruising present over right eye and left arm, Will continue neuro checks, CT head normal Qualifiers: Qualified Codes: W19.XXXA - Unspecified fall, initial encounter (3) Urinary tract infection Status: Acute Assessment & Plan: - Rocephin Day 2 Qualifiers: Qualified Codes: N39.0 - Urinary tract infection, site not specified (4) ARF (acute renal failure) Status: Resolved Assessment & Plan: - Likely pre renal 2/2 to hypotension, resolved with IVFs Qualifiers: Qualified Codes: N17.9 - Acute kidney failure, unspecified (5) Chronic pain Status: Chronic Qualifiers: Qualified Codes: G89.4 - Chronic pain syndrome (6) Hyperlipidemia Status: Chronic Assessment & Plan: - Continue home statin Qualifiers: Qualified Codes: E78.2 - Mixed hyperlipidemia (7) Anxiety Status: Chronic Assessment & Plan: Continue home meds (8) Alkaline phosphatase elevation Status: Acute Assessment & Plan: - Will get Vit D level (9) Elevated AST (SGOT) Status: Acute (10) DVT prophylaxis Status: Acute Assessment & Plan: - Lovenox Clinical Quality Measures AMI/AHF: ASA po Prior to arrival: No DVT/VTE Risk/Contraindication: Risk Factor Score Per Nursin RFS Level Per Nursing on Admit: 3=High Copy Copies To 1: KARENA HENNING MD Dec 12, 2018 15:42
[2018-12-12] MEDS: SUCRALFATE 1 GM (CARAFATE) TAB PO SCH ×2 (16:00→21:04)
[2018-12-12] MEDS ORDERED: oxyCODONE/APAP 10/325MG (PERCOCET 10) TABLET PO PRN (19:00)
[2018-12-12] MEDS ORDERED: morphine ER 15 MG (MS CONTIN) TAB PO ONE (20:56)
[2018-12-12] MEDS ORDERED: cefTRIAXone 1,000 MG/SWFI 10 ML IV PUSH IV SCH ×2 (21:00)
[2018-12-12] MEDS: morphine ER 30 MG (MS CONTIN) TAB PO SCH (21:05)
[2018-12-13 00:53] VITALS: BP 158/81
[2018-12-13 04:36] VITALS: BP 123/71
[2018-12-13] MEDS: CATHETER FLUSH 10 ML SYR IV SCH (05:02)
[2018-12-13] MEDS: SUCRALFATE 1 GM (CARAFATE) TAB PO SCH ×2 (05:02→11:34)
[2018-12-13 06:06] LABS: BASOPHILS % (AUTO) 0 % (0-10); EOSINOPHILS # (AUTO) 0.1 10^3/uL (0.0-0.3); EOSINOPHILS % (AUTO) 2 % (0-10); HEMATOCRIT 35 % (35-52); HEMOGLOBIN 11.3 G/DL (11.5-16.0); LYMPHOCYTES # (AUTO) 1.8 X 10^3 (1.0-4.0); LYMPHOCYTES % (AUTO) 33 % (12-44); MEAN CORPUSCULAR HEMOGLOBIN 30 PG (25-34); MEAN CORPUSCULAR HGB CONC 32 G/DL (32-36); MEAN CORPUSCULAR VOLUME 93 FL (80-99); MEAN PLATELET VOLUME 9.8 FL (7.4-10.4); MONOCYTES # (AUTO) 0.5 X 10^3 (0.0-1.0); MONOCYTES % (AUTO) 10 % (0-12); NEUTROPHILS % (AUTO) 55 % (42-75); PLATELET COUNT 232 10^3/uL (130-400); RED CELL DISTRIBUTION WIDTH 16.2 % (10.0-14.5); WHITE BLOOD COUNT 5.5 10^3/uL (4.3-11.0)
[2018-12-13 06:30] LABS: BUN/CREATININE RATIO 12; CARBON DIOXIDE 23 MMOL/L (21-32); CHLORIDE 109 MMOL/L (98-107); CREATININE SERUM 0.73 MG/DL (0.60-1.30); GFR ESTIMATED > 60; GLUCOSE 84 MG/DL (70-105); POTASSIUM 3.8 MMOL/L (3.6-5.0); SODIUM 139 MMOL/L (135-145)
[2018-12-13 08:00] VITALS: BP 147/82
[2018-12-13] MEDS ORDERED: DULoxetine 30 MG (CYMBALTA) CAP PO SCH (08:00)
[2018-12-13] MEDS ORDERED: NON-FORMULARY MEDICATION 1 EA EA (Duloxetine HCl 60 MG) PO SCH (08:00)
--- NOTE | 2018-12-13 08:30 | Physical Therapy Daily Note ---
PT Daily Note-Current Subjective Patient in bed pre tx, agrees to PT, has 10/10 pain in both hips. Nurse notified that patient would like pain meds after treatment. Appearance Patient in recliner post tx with nurse call, phone, tray, all needs met. Mental Status Patient Orientation: Person, Place, Situation Transfers Therapy Code Descriptions/Definitions Functional [place] Measure: 0=Not Assessed/NA 4=Minimal Assistance 1=Total Assistance 5=Supervision or Setup 2=Maximal Assistance 6=Modified [place] 3=Moderate Assistance 7=Complete [place] Therapy Quality Codes: 6 Independent with activity with or without an assistive device 5 Patient requires set up or clean up by helper. Patient completes activity by themselves 4 Supervision or touching assist (CGA). [place] provide cues , steadying assist 3 The helper provides less than half the effort to complete the activity 2 The helper provides more than half the effort to complete the activity 1 Dependent. The helper does all the effort to complete an activity 7 Patient refused to complete or attempt activity 9 The patient did not perform the activity before the current illness or injury 88 Not attempted due to Medical conditions or safety concerns Transfers (B, C, W/C) (FIM): 5 Scootin Rollin Supine to/from Sit: 5 Sit to/from Stand: 5 Bed to/from Chair: 5 Weight Bearing Right Lower Extremity: Right Weight Bearing/Tolerated Left Lower Extremity: Left Weight Bearing/Tolerated Gait Training Gait (FIM): 5 Distance: 150' Gait Level of Assist: 5 Gait Persons Needed: 1 Gait Assistive Device: FWW Antalgic gait, multiple standing rest breaks due to pain. Treatments bed mobility and transfers, ambulation Assessment Current Status: Fair Progress Patient in recliner post tx, crying due to pain, seated exercises not performed due to pain. Nurse notified of pain. PT Longterm Goals Nursing Program Chair Goals PT Nursing Program Chair Goals Time Frame: Dec 17, 2018 Transfers (B,C,W/C) (FIM): 7 Gait (FIM): 6 PT Plan Problem List Problem List: Activity Tolerance, Functional Strength, Safety, Balance, Gait, Transfer, Bed Mobility, ROM Treatment/Plan Treatment Plan: Continue Plan of Care Treatment Plan: Bed Mobility, Education, Functional Activity Manuel, Functional Strength, Gait, Safety, Transfers Treatment Duration: Dec 17, 2018 Frequency: 6 times per week Estimated Hrs Per Day: .25 hour per day Patient and/or Family Agrees t: Yes Safety Risks/Education Patient Education: Gait Training, Transfer Techniques, Correct Positioning, Safety Issues Teaching Recipient: Patient Teaching Methods: Demonstration, Discussion Response to Teaching: Reinforcement Needed Time/GCodes Time In: 814 Time Out: 824 Total Billed Treatment Time: 10 Total Billed Treatment 1 visit GT 10' RUBEN YEH PT Dec 13, 2018 08:30
[2018-12-13] MEDS: morphine ER 30 MG (MS CONTIN) TAB PO SCH (08:39)
[2018-12-13] MEDS ORDERED: NON-FORMULARY MEDICATION 1 EA EA (Vortioxetine Hydrobromide (Trintellix) 20 MG) PO SCH (09:00)
--- NOTE | 2018-12-13 11:04 | Discharge Summary ---
Diagnosis/Chief Complaint Date of Admission Dec 11, 2018 at 21:25 Date of Discharge 12/13/2018 Admission Diagnosis Admission Diagnosis Sepsis Fall Dizziness UTI Acute Renal Failure Chronic Pain Discharge Diagnosis See Above Problems/Diagnosis: (1) Sepsis Assessment & Plan: - Initially hypotensive in ER that responded well to IVFs, received 30mg/kg of IVFs, Continue Rocephin, cultures pending, HDS this AM, will stop IVFs and encourage PO hydration Qualifiers: Qualified Codes: A41.9 - Sepsis, unspecified organism Status: Acute (2) Fall Assessment & Plan: - Bruising present over right eye and left arm, Will continue neuro checks, CT head normal Qualifiers: Qualified Codes: W19.XXXA - Unspecified fall, initial encounter Status: Acute (3) Urinary tract infection Assessment & Plan: - Rocephin Day 2 Qualifiers: Qualified Codes: N39.0 - Urinary tract infection, site not specified Status: Acute (4) ARF (acute renal failure) Assessment & Plan: - Likely pre renal 2/2 to hypotension, resolved with IVFs Qualifiers: Qualified Codes: N17.9 - Acute kidney failure, unspecified Status: Resolved Resolution Date/Time: 12/12/18 @ 15:54 (5) Chronic pain Qualifiers: Qualified Codes: G89.4 - Chronic pain syndrome Status: Chronic (6) Hyperlipidemia Assessment & Plan: - Continue home statin Qualifiers: Qualified Codes: E78.2 - Mixed hyperlipidemia Status: Chronic (7) Anxiety Assessment & Plan: Continue home meds Status: Chronic (8) Alkaline phosphatase elevation Assessment & Plan: - Will get Vit D level Status: Acute (9) Elevated AST (SGOT) Status: Acute (10) DVT prophylaxis Assessment & Plan: - Lovenox Status: Acute Chief Complaint/HPI Chief Complaint/HPI 73 yo F that presented to ER with dizziness and found to be hypotension. Patient states that the last couple of days she was getting dizzy anytime she stood up. Denies any fever or chills. Patient has extensive medication list that could be contributing to dizziness and multiple medications that can increase fall risk. Patient stood up from the toliet and got dizzy and fell and hit her head on the wall. Denies any pain this AM. States that she has stood up to get to chair and states that the dizziness has resolved. Denies any cough, shortness of breath or chest pain. Discharge Summary-Simple/Stand Consultations Discharge Physical Examination Allergies: Coded Allergies: Penicillins (Unverified Allergy, Mild, PT DOES NOT REMEMBER RXN > 30 YRS, 04/21/18) Pt has received Cefepime & Ceftriaxone w/o issue nalbuphine (Unverified Allergy, Mild, Pt has received Lortab & Morphine in the past w/o issue, 11/21/18) Vitals & I&Os Vital Sign - Last 12Hours Date Time Temp Pulse Resp B/P (MAP) Pulse Ox O2 Delivery O2 Flow Rate FiO2 12/13/18 07:00 70 12/13/18 04:36 98.5 14 123/71 (88) 96 Room Air 12/12/18 20:00 0.00 Intake and Output 12/13/18 00:00 Intake Total 2720 ml Output Total 800 ml Balance 1920 ml General Appearance: Alert, Oriented X3, Cooperative, No Acute Distress HEENT: Mucous Memb Moist/Brenas Respiratory: Clear to Auscultation, Normal Air Movement Cardiovascular: Regular Rate, No Murmurs Abdominal: Normal Bowel Sounds, Soft, No Tenderness, No Masses Extremities: No Edema, No Tenderness/Swelling Skin: No Rashes, No Breakdown Neuro: Normal Gait, Normal Speech, Strength at 5/5 X4 Ext, Cranial Nerves 3-12 NL Psych/Mental Status: Mental Status NL, Mood NL Hospital Course See final discharge diagnosis. Radiology Reviewed Date of Exam: 12/11/18 CT HEAD/CERVICAL SPINE WO CLINICAL INDICATION: Patient fell face forward striking the lateral canthus and right orbit. Patient has headache and neck pain. EXAM: Head CT without IV contrast. Axial CT scan of the cervical spine with sagittal and coronal reformations. COMPARISON: CT scan of the head and cervical spine dated 04/21/2018. FINDINGS: HEAD CT: There is no evidence of acute cerebral infarct, intracranial hemorrhage, or gross mass effect. There is diffuse brain parenchymal volume loss seen. There are subtle areas of focal low-attenuation white matter changes involving both cerebral hemispheres, likely representing chronic small vessel ischemic disease. There is normal issa/white matter distinction. There is no significant midline shift or herniation. There is no evidence of hydrocephalus. The basal cisterns are unremarkable. There is a small area of extracranial soft tissue swelling in the right forehead and superior/lateral right periorbital region. There is no skull fracture. The orbits and globes are intact. Otherwise, the skull, extracranial soft tissue, and orbits are unremarkable. The paranasal sinuses are unremarkable. The temporal bones show no significant abnormality. CT CERVICAL SPINE: There is streak artifact which obscures the inferior aspect of the C6 vertebra and most of the C7 and T1 vertebra limiting evaluation. There is no evidence of acute cervical spine fracture. There is stable grade 1 anterolisthesis of C2 on C3 and C3 on C4. There is no significant change to the multilevel cervical spine degenerative disease with severe loss of intervertebral disc height at the C4-C5 level with endplate irregularity, Schmorl's nodes, and sclerosis. Stable moderate loss of intervertebral disc height involving the C5-C6 and C6-C7 levels. Stable kyphosis of the cervical spine posture. IMPRESSION: 1. There is no evidence of acute intracranial process. There is no intracranial hemorrhage. 2. There is a small area of extracranial soft tissue swelling in the right frontal and right periorbital region. There is no skull fracture. The orbits and globes are intact. 3. Stable degenerative disease of the cervical spine with no acute fracture. There is stable grade 1 anterolisthesis of C2 on C3 and C3 on C4 with kyphosis of the cervical spine posture. 4. Stable age-related brain parenchymal changes. Date of Exam: 12/11/18 CT CHEST/ABDOMEN/PELVIS WO PROCEDURE: CT chest, abdomen, and pelvis without contrast. TECHNIQUE: Multiple contiguous axial images were obtained through the chest, abdomen, and pelvis without the use of intravenous contrast. INDICATION: Fall with right lateral chest pain as well as lateral abdominal pain. COMPARISON: Correlation is made with prior CT chest from 10/21/2015. FINDINGS: CT chest: No mediastinal hematoma is identified. No pericardial or pleural fluid is identified. No parenchymal contusion or pneumothorax is detected. Micronodules in the right upper and right lower lobe are stable. There is some chronic atelectasis or scarring in the lingula. No definite rib fracture is identified. IMPRESSION: Unremarkable noncontrast CT of the chest. CT abdomen and pelvis: No definite focal liver or splenic laceration is seen, although evaluation is limited without intravenous contrast. No perihepatic or perisplenic fluid is detected. The gallbladder is surgically absent. There are postop changes to the stomach. Pancreas is unremarkable. No adrenal hematoma is seen. No perinephric fluid collection is identified. Aorta is calcified but nonaneurysmal. There is no evidence of a hemoperitoneum. Visualized bladder is unremarkable. Moderate stool in the colon is identified. Small bowel loops are normal in caliber. Postsurgical changes in the lumbar spine are noted. No acute bony abnormality is seen. There does appear to be some thickening of the musculature of the right lateral abdominal wall, perhaps owing to some hematoma formation. No well-formed fluid collection is seen. There is some mild associated stranding in the subcutaneous fat at this location. IMPRESSION: 1. No evidence of abdominal or pelvic visceral injury. There is some thickening of the right lateral abdominal wall musculature, perhaps owing to some bruising or hematoma formation. No other significant abnormality is detected. Discussion & Recommendations 73 yo F that presented after suffering a fall due to dizziness and was found to have profound hypotension and UTI. Patient responded well with IVFs and was continued on IV antibiotics for 3 days to complete treatment of UTI. Review of medications revealed multiple medications that cause sedation. Seroquel was discontinued during this admission. Discussed with patient that she is on multiple medications that can cause sedation and dizziness and recommend talking to PCP about titrating off some medications and patient is in agreement. She did well with PT and did not have return of dizziness during admission. Patient will be discharged with close follow up with PCP at [facility] Discharge Condition at discharge stable Instructions to patient/family Please see electronic discharge instructions given to patient. Discharge Medications Reviewed and agree with Discharge Medication list on patient's Discharge Instruction sheet Clinical Quality Measures AMI/AHF: ASA po Prior to arrival: No DVT/VTE Risk/Contraindication: Risk Factor Score Per Nursin RFS Level Per Nursing on Admit: 3=High Copy Copies To 1: LEANDRO ELLIS MD, HOLLY R MD Dec 13, 2018 11:03
--- NOTE | 2018-12-13 11:19 | Discharge Instructions ---
Discharge [facility] Discharge Medications New, Converted or Re-Newed RX: Transmitted to Pharmacy Continued Medications: Albuterol Sulfate (Ventolin Hfa) 18 Gm Hfa.aer.ad 2 PUFF INH QID PRN for WHEEZING, INHALER Diclofenac Sodium (Diclofenac Sodium) 75 Mg Tablet.dr 75 MG PO BID, TAB Docusate Sodium (Colace) 100 Mg Capsule 100 MG PO DAILY, CAP Duloxetine HCl (Duloxetine HCl) 60 Mg Capsule.dr 60 MG PO 0800,1500, CAP Ezetimibe (Ezetimibe) 10 Mg Tablet 10 MG PO DAILY, TAB Fluticasone/Vilanterol (Breo Ellipta 200-25 Mcg INH) 1 Each Blst.w.dev 1 PUFF INH DAILY, INHALER Furosemide (Furosemide) 40 Mg Tablet 40 MG PO DAILY, TAB Gabapentin (Gabapentin) 600 Mg Tablet 600 MG PO TID, TAB Morphine Sulfate (Morphine Sulfate ER) 30 Mg Tablet.er 30 MG PO Q12H, TAB Ondansetron HCl (Ondansetron HCl) 4 Mg Tablet 4 MG PO Q8H PRN for NAUSEA/VOMITING-1ST LINE, TAB Oxycodone HCl/Acetaminophen (Oxycodone-Acetaminophen 10-325) 1 Each Tablet 1 TAB PO TID PRN for PAIN-BREAKTHROUGH, TAB Pantoprazole Sodium (Pantoprazole Sodium) 40 Mg Tablet.dr 40 MG PO 1500, TAB Potassium Chloride (Potassium Chloride) 20 Meq Tab.er.prt 20 MEQ PO DAILY, TAB Rosuvastatin Calcium (Rosuvastatin Calcium) 10 Mg Tablet 10 MG PO 1500, TAB Sucralfate (Sucralfate) 1 Gm Tablet 1 GM PO ACHS, TAB Tiotropium [place] (Spiriva) 1 Inh Aerp 1 CAP INH 1500, INHALER Vitamin B Complex (Vitamin B Complex) 1 Each Tablet 1 TAB PO DAILY, TAB Vitamin E Acetate (Vitamin E) 400 Unit Capsule 400 UNIT PO DAILY, CAP Vortioxetine Hydrobromide (Trintellix) 20 Mg Tablet 20 MG PO DAILY, TAB Discontinued Medications: Quetiapine Fumarate (Quetiapine Fumarate) 50 Mg Tablet 50 MG PO HS, TAB Patient Instructions Goal/Follow Up Appt: You have a follow up appt with Awa Mcintosh on Dec 19 @ 0940 AM - Will need to reschedule appt with Dr Hernandez Activity & Diet Discharge Diet: ADA Diet, Cardiac Diet Activity as Tolerated: Yes Copy Copies To 1: LEADNRO ELLIS MD, HOLLY R MD Dec 13, 2018 11:19
[2018-12-13] MEDS ORDERED: ROSUVASTATIN 10 MG (CRESTOR) TABLET PO SCH (15:00)
[2018-12-13] MEDS ORDERED: PANTOPRAZOLE 40 MG (PROTONIX) TAB PO SCH (15:00)
== END 2018-12-13 13:00 | disposition home or self-care (01) | DRG 872 ==
LOC: EDUNIT# 14:52 → ER 14:54 → 4TH 21:25
PROVIDERS: ADMIT Family Medicine; ATTEND Family Medicine
DX: A41.9 Sepsis, unspecified organism (principal); N39.0 Urinary tract infection, site not specified; N17.9 Acute kidney failure, unspecified; I95.1 Orthostatic hypotension; S00.11XA Contusion of right eyelid and periocular area, initial encounter; S70.01XA Contusion of right hip, initial encounter; S70.11XA Contusion of right thigh, initial encounter; Z66 Do not resuscitate; R11.2 Nausea with vomiting, unspecified; S51.012A Laceration without foreign body of left elbow, initial encounter; J44.9 Chronic obstructive pulmonary disease, unspecified; E78.2 Mixed hyperlipidemia; G47.30 Sleep apnea, unspecified; F41.9 Anxiety disorder, unspecified; W19.XXXA Unspecified fall, initial encounter; Z98.84 Bariatric surgery status
CPT/HCPCS: 36415; 70450; 71045; 71250; 72125; 74176; 80048; 80053; 81000; 82150; 82306; 83605; 83690; 83735; 83880; 85025; 87040; 87077; 87088; 93005; 93041; 96361; 96365; 96375

== ENCOUNTER 2018-12-23 10:47 | Inpatient (IN) | payer MEDICARE ==
[~2018-12-23] VITALS: Ht 147.3 cm; Wt 79.9 kg
[~2018-12-23 10:47] MED LIST changes: +BUSP10TA95 PO; +DICL75TA2 PO; +EZET10TA27 PO; +FLUT1BLS INH; +ONDA4TAB10 PO; +POTA20TA15 PO; -ROSU10TA PO; +ROSU10TA22 PO; +TIOT18CA2 INH; +VITA1TAB17 PO; +VORT20TA PO
--- NOTE | 2018-12-23 10:58 | ED GI ---
General Stated Complaint: N/V/D;CHILLS Source of Information: Patient Exam Limitations: No Limitations History of Present Illness Date Seen by Provider: Dec 23, 2018 Time Seen by Provider: 10:56 Initial Comments To ER per EMS from home with reports of nausea and epigastric abdominal pain diarrhea for about 3 days. She was in the hospital in November for sepsis/ urinary tract infection. Timing/Duration: 2-3 Days Severity/Quality: Cramping Location: Epigastric, Generalized Abdomen Radiation: No Radiation Activities at Onset: None Associated Symptoms: No Fever/Chills; Nausea/Vomiting Allergies and Home Medications Allergies Coded Allergies: Penicillins (Unverified Allergy, Mild, PT DOES NOT REMEMBER RXN > 30 YRS, 04/21/18) Pt has received Cefepime & Ceftriaxone w/o issue nalbuphine (Unverified Allergy, Mild, Pt has received Lortab & Morphine in the past w/o issue, 11/21/18) Home Medications Albuterol Sulfate 18 Gm Hfa.aer.ad, 2 PUFF INH QID PRN for WHEEZING, (Reported) Diclofenac Sodium 75 Mg Tablet.dr, 75 MG PO BID, (Reported) Docusate Sodium 100 Mg Capsule, 100 MG PO DAILY, (Reported) Duloxetine HCl 60 Mg Capsule.dr, 60 MG PO 0800,1500, (Reported) Ezetimibe 10 Mg Tablet, 10 MG PO DAILY, (Reported) Fluticasone/Vilanterol 1 Each Blst.w.dev, 1 PUFF INH DAILY, (Reported) Furosemide 40 Mg Tablet, 40 MG PO DAILY, (Reported) Gabapentin 600 Mg Tablet, 600 MG PO TID, (Reported) Morphine Sulfate 30 Mg Tablet.er, 30 MG PO Q12H, (Reported) Ondansetron HCl 4 Mg Tablet, 4 MG PO Q8H PRN for NAUSEA/VOMITING-1ST LINE, ( Reported) Oxycodone HCl/Acetaminophen 1 Each Tablet, 1 TAB PO TID PRN for PAIN- BREAKTHROUGH, (Reported) Pantoprazole Sodium 40 Mg Tablet.dr, 40 MG PO 1500, (Reported) Potassium Chloride 20 Meq Tab.er.prt, 20 MEQ PO DAILY, (Reported) Rosuvastatin Calcium 10 Mg Tablet, 10 MG PO 1500, (Reported) Sucralfate 1 Gm Tablet, 1 GM PO ACHS, (Reported) Tiotropium [place] 1 Inh Aerp, 1 CAP INH 1500, (Reported) Vitamin B Complex 1 Each Tablet, 1 TAB PO DAILY, (Reported) Vitamin E Acetate 400 Unit Capsule, 400 UNIT PO DAILY, (Reported) Vortioxetine Hydrobromide 20 Mg Tablet, 20 MG PO DAILY, (Reported) Patient Home Medication List Home Medication List Reviewed: Yes Review of Systems Review of Systems Constitutional: see HPI EENTM: No Symptoms Reported Respiratory: No Symptoms Reported Cardiovascular: No Symptoms Reported Gastrointestinal: See HPI, Abdominal Pain, Diarrhea, Nausea Genitourinary: No Symptoms Reported Musculoskeletal: no symptoms reported Skin: no symptoms reported Psychiatric/Neurological: No Symptoms Reported Endocrine: No Symptoms Reported Hematologic/Lymphatic: No Symptoms Reported Past Fpcawik-Qmuusk-Bzeyrx Hx Patient Social History Former Smoker, Quit: Aug 05, 1992 Recent Hopitalizations: No Immunizations Up To Date Tetanus Booster (TDap): More than 5yrs PED Vaccines UTD: No Date of Pneumonia Vaccine: Jun 23, 2017 Date of Influenza Vaccine: Aug 02, 2018 Seasonal Allergies Seasonal Allergies: Yes Past Medical History Surgeries: Yes (RIGHT ANKLE, BILAT TOTAL KNEE, GASTRIC BYPASS, L ROTATOR CUFF REPAIR 01/04,) Gallbladder, Hysterectomy, Orthopedic Respiratory: Yes ( mild sleep apnea-) Sleep Apnea, COPD Currently Using CPAP: No Currently Using BIPAP: No Cardiac: Yes High Cholesterol Neurological: Yes (fell from a three story building in concussion, concusion from fall) TIA Reproductive Disorders: No Female Reproductive Disorders: Menstrual Problems 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[employer]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[employer] MATERIAL History: Hysterectomy Genitourinary: No Gastrointestinal: Yes (hepatitis in 1979 not sure which type) Colitis, Gastroesophageal Reflux, Chronic Constipation, Hepatitis Musculoskeletal: Yes (, broken back ) Arthritis, Back Injury, Chronic Back Pain Endocrine: No Diabetes, Non-Insulin dep HEENT: Yes Cataract Loss of Vision: Denies Hearing Impairment: Hard of Hearing Cancer: Yes (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) What Type of Treatment Did You: Surgical Intervention Psychosocial: Yes Anxiety, Depression Integumentary: No Blood Disorders: Yes (ANEMIA) Adverse Reaction/Blood Tranf: No Family Medical History Alzheimer's disease (MOTHER) Cancer (FATHER LIVER CA SISTER CA) Cardiovascular disease G8 SISTER Dementia FH: lupus (SISTER) Family history: Cardiovascular disease Family history: Diabetes mellitus Family history: Hypertension Heart disease Heart Disease, Cancer, Hypertension, Psychiatric Problems, Vascular Disease Physical Exam Vital Signs Vital Signs - First Documented 12/23/18 10:57 Temp 100.0 Pulse 110 Resp 24 B/P (MAP) 136/110 (119) Pulse Ox 96 O2 Delivery Room Air Capillary Refill : Height/Weight/BMI Height: 4'10.00" Weight: 166lbs. 5.0oz. [id number]; 34.8 BMI Method:Stated General Appearance: WD/WN, no apparent distress HEENT: PERRL/EOMI, normal ENT inspection, other (Ecchymosis yellowish in color about the right eye. ) Respiratory: no respiratory distress, no accessory muscle use Cardiovascular: regular rate, rhythm, no edema Gastrointestinal: normal bowel sounds, soft, tenderness (epigastric) Extremities: normal range of motion, non-tender, other (ecchymosis over lateral left thigh ) Neurologic/Psychiatric: alert, disoriented x 3, other (sister states she's always confused and this is her baseline. She lives at home alone. She is clearly unable to care for herself. ) Skin: normal color, warm/dry Focused Exam Lactate Level 12/23/18 10:59: Lactic Acid Level 1.03 Lactic Acid Level Laboratory Tests Test 12/23/18 10:59 Lactic Acid Level 1.03 MMOL/L (0.50-2.00) Progress/Results/Core Measures Results/Orders Lab Results Laboratory Tests Test 12/23/18 10:59 12/23/18 11:08 Range/Units White Blood Count 10.2 4.3-11.0 10^3/uL Red Blood Count 4.51 4.35-5.85 10^6/uL Hemoglobin 13.7 11.5-16.0 G/DL Hematocrit 41 35-52 % Mean Corpuscular Volume 91 80-99 FL Mean Corpuscular Hemoglobin 30 25-34 PG Mean Corpuscular Hemoglobin Concent 33 32-36 G/DL Red Cell Distribution Width 15.9 H 10.0-14.5 % Platelet Count 380 130-400 10^3/uL Mean Platelet Volume 9.4 7.4-10.4 FL Neutrophils (%) (Auto) 77 H 42-75 % Lymphocytes (%) (Auto) 15 12-44 % Monocytes (%) (Auto) 8 0-12 % Eosinophils (%) (Auto) 0 0-10 % Basophils (%) (Auto) 0 0-10 % Neutrophils # (Auto) 7.9 H 1.8-7.8 X 10^3 Lymphocytes # (Auto) 1.6 1.0-4.0 X 10^3 Monocytes # (Auto) 0.8 0.0-1.0 X 10^3 Eosinophils # (Auto) 0.0 0.0-0.3 10^3/uL Basophils # (Auto) 0.0 0.0-0.1 10^3/uL Sodium Level 136 135-145 MMOL/L Potassium Level 3.9 3.6-5.0 MMOL/L Chloride Level 103 98-107 MMOL/L Carbon Dioxide Level 19 L 21-32 MMOL/L Anion Gap 14 5-14 MMOL/L Blood Urea Nitrogen 9 7-18 MG/DL Creatinine 0.68 0.60-1.30 MG/DL Estimat Glomerular Filtration Rate > 60 BUN/Creatinine Ratio 13 Glucose Level 84 70-105 MG/DL Lactic Acid Level 1.03 0.50-2.00 MMOL/L Calcium Level 8.7 8.5-10.1 MG/DL Corrected Calcium 9.5 8.5-10.1 MG/DL Total Bilirubin 1.1 H 0.1-1.0 MG/DL Aspartate Amino Transf (AST/SGOT) 35 H 5-34 U/L Alanine Aminotransferase (ALT/SGPT) 21 0-55 U/L Alkaline Phosphatase 170 H 40-136 U/L Total Protein 5.9 L 6.4-8.2 GM/DL Albumin 3.0 L 3.2-4.5 GM/DL Lipase 11 8-78 U/L Urine Color ASAF H Urine Clarity SLIGHTLY CLOUDY Urine pH 7 5-9 Urine Specific [place] 1.015 L 1.016-1.022 Urine Protein 1+ H NEGATIVE Urine Glucose (UA) NEGATIVE NEGATIVE Urine Ketones 4+ H NEGATIVE Urine Nitrite NEGATIVE NEGATIVE Urine Bilirubin 1+ H NEGATIVE Urine Urobilinogen 8 H NORMAL MG/DL Urine Leukocyte Esterase 1+ H NEGATIVE Urine RBC (Auto) 1+ H NEGATIVE Urine RBC 5-10 H /HPF Urine WBC 2-5 /HPF Urine Squamous Epithelial Cells 2-5 /HPF Urine Crystals NONE /LPF Urine Bacteria TRACE /HPF Urine Casts NONE /LPF Urine Mucus LARGE H /LPF Urine Culture Indicated YES My Orders Orders - JH BARAHONA APRN C Difficile Ag + Toxin A/B. (12/23/18 10:51) Blood Culture (12/23/18 10:51) Lactic Acid Analyzer (12/23/18 10:51) Cbc With Automated Diff (12/23/18 10:51) Lipase (12/23/18 10:51) Ua Culture If Indicated (12/23/18 10:51) Comprehensive Metabolic Panel (12/23/18 10:51) Chest 1 View, Ap/Pa Only (12/23/18 10:51) Ct Abdomen/Pelvis Wo (12/23/18 10:51) Hyoscyamine Sl Tablet (Levsin Sl Tablet) (12/23/18 11:00) Lactated Ringers (Lr 1000 Ml Iv Solution (12/23/18 11:00) Ondansetron Injection (Zofran Injectio (12/23/18 11:00) Iv Heplock-Insert (Order) (12/23/18 10:51) Ct Head Wo (12/23/18 10:55) Urine Culture (12/23/18 11:08) Medications Given in ED Current Medications Medications Dose Ordered Sig/Anila Route Start Time Stop Time Status Last Admin Dose Admin Hyoscyamine Sulfate 0.125 mg ONCE ONCE PO 12/23/18 11:00 12/23/18 11:01 DC 12/23/18 11:12 0.125 MG Ondansetron HCl 4 mg ONCE ONCE IVP 12/23/18 11:00 12/23/18 11:01 DC 12/23/18 11:12 4 MG Vital Signs/I&O 12/23/18 10:57 Temp 100.0 Pulse 110 Resp 24 B/P (MAP) 136/110 (119) Pulse Ox 96 O2 Delivery Room Air Departure Communication (Admissions) Time/Spoke to Admitting Phy: 12:19 Patient is confused, unable to care for herself at home. She's had a couple of episodes of diarrhea here in the emergency room. Stool was collected for C. difficile given recent antibiotic use. We will admit using by mouth vancomycin, fluid hydration, consult to social worker assistant in the morning regarding inability to care for herself at home and likely retirement placement needed. Impression Primary Impression: Colitis Disposition: 09 ADMITTED INPATIENT Condition: Stable Admissions Decision to Admit Reason: Admit from ER (General) Decision to Admit/Date: Dec 23, 2018 Time/Decision to Admit Time: 12:20 Departure-Patient Inst. Referrals: NEERU CANO MD (PCP/Family) Primary Care Physician JH BARAHONA APRN Dec 23, 2018 10:58
[2018-12-23] MEDS ORDERED: HYOSCYAMINE 0.125 MG (LEVSIN) TAB PO ONE (11:00)
[2018-12-23] MEDS ORDERED: LACTATED RINGERS 1,000 ML IV SCH ×2 (11:00→13:45)
[2018-12-23] MEDS ORDERED: ONDANSETRON 4 MG/2 ML (SDV) Z0FRAN IVP ONE (11:00)
[2018-12-23 11:12] LABS: BASOPHILS % (AUTO) 0 % (0-10); EOSINOPHILS % (AUTO) 0 % (0-10); HEMATOCRIT 41 % (35-52); HEMOGLOBIN 13.7 G/DL (11.5-16.0); LYMPHOCYTES # (AUTO) 1.6 X 10^3 (1.0-4.0); LYMPHOCYTES % (AUTO) 15 % (12-44); MEAN CORPUSCULAR HEMOGLOBIN 30 PG (25-34); MEAN CORPUSCULAR HGB CONC 33 G/DL (32-36); MEAN CORPUSCULAR VOLUME 91 FL (80-99); MEAN PLATELET VOLUME 9.4 FL (7.4-10.4); MONOCYTES # (AUTO) 0.8 X 10^3 (0.0-1.0); MONOCYTES % (AUTO) 8 % (0-12); NEUTROPHILS # (AUTO) 7.9 X 10^3 (1.8-7.8); NEUTROPHILS % (AUTO) 77 % (42-75); PLATELET COUNT 380 10^3/uL (130-400); RED CELL DISTRIBUTION WIDTH 15.9 % (10.0-14.5); WHITE BLOOD COUNT 10.2 10^3/uL (4.3-11.0)
[2018-12-23 11:15] LABS: CLARITY,URINE SLIGHTLY CLOUDY; COLOR,URINE AMBER; GLUCOSE, URINE (UA) NEGATIVE (NEGATIVE); KETONES,URINE 4+ (NEGATIVE); LEUKOCYTE ESTERASE ,URINE 1+ (NEGATIVE); NITRITE,URINE NEGATIVE (NEGATIVE); PH,URINE 7 (5-9); PROTEIN,URINE 1+ (NEGATIVE); UROBILINOGEN,URINE 8 MG/DL (NORMAL)
[2018-12-23 11:34] LABS: ALANINE AMINOTRANSFERASE 21 U/L (0-55); ALKALINE PHOSPHATASE 170 U/L (40-136); BILIRUBIN,TOTAL 1.1 MG/DL (0.1-1.0); BUN/CREATININE RATIO 13; CALCIUM 8.7 MG/DL (8.5-10.1); CARBON DIOXIDE 19 MMOL/L (21-32); CHLORIDE 103 MMOL/L (98-107); CREATININE SERUM 0.68 MG/DL (0.60-1.30); GFR ESTIMATED > 60; GLUCOSE 84 MG/DL (70-105); LIPASE 11 U/L (8-78); POTASSIUM 3.9 MMOL/L (3.6-5.0); SODIUM 136 MMOL/L (135-145); TOTAL PROTEIN 5.9 GM/DL (6.4-8.2)
[2018-12-23 11:39] LABS: BILIRUBIN,URINE 1+ (NEGATIVE)
[2018-12-23 11:40] LABS: BACTERIA,URINE TRACE /HPF
--- NOTE | 2018-12-23 11:49 | Diagnostic Imaging Report ---
PROCEDURE: CT head without contrast. TECHNIQUE: Multiple contiguous axial images were obtained through the brain without the use of intravenous contrast. INDICATION: Right periorbital bruising. Nausea and vomiting. Comparison made with the prior head CT from 12/11/2018. FINDINGS: Moderate global volume loss is unchanged from the previous exam. There are no findings of acute intracranial hemorrhage. There is no abnormal extra-axial collection. There is no mass effect or shift. There is no hydrocephalus. There is no abnormal extra-axial fluid collection. There are no findings of territorial loss of issa-white differentiation. There is no acute calvarial fracture. The mastoids appear aerated. No fluid level evident in the basilar portion of the paranasal sinuses. The intraorbital contents appear unremarkable. There is no evidence of disruption of the orbital rim. IMPRESSION: 1. Moderate global volume loss without CT evidence of an acute intracranial abnormality. 2. No facial fracture evident. No blood evident within the paranasal sinuses. The intraorbital contents appear unremarkable. Dictated by: Dictated on workstation # [id number]
--- NOTE | 2018-12-23 11:50 | Diagnostic Imaging Report ---
PROCEDURE: CT abdomen and pelvis without contrast. TECHNIQUE: Multiple contiguous axial images were obtained through the abdomen and pelvis without the use of intravenous contrast. INDICATION: Nausea and vomiting. Chills. COMPARISON: Comparison with 12/11/2018. FINDINGS: Lung bases are clear. The liver appears normal. Gallbladder is absent. Bile ducts are not dilated. Pancreas and spleen are normal. The adrenal glands are normal. Kidneys appear normal without evidence of obstruction or calculi. There has been a gastric surgery. Stomach is not distended. The small bowel is not dilated. Anastomotic changes are noted from Billroth surgery in the small bowel. Colon shows very little stool or gas. There is gas and stool to the rectum however. There is diverticulosis of the descending and sigmoid colon without evidence of acute diverticulitis. There is no free air or free fluid. No abscesses. No intra-abdominal adenopathy of pathologic size. Huerta catheter is present with decompression of the bladder. There are no bony lesions. IMPRESSION: 1. Postsurgical changes from gastric bypass. No evidence of bowel obstruction. 2. There is long segment spasm of the colon with very little stool or gas. Could not exclude colitis. Clinical correlation. Dictated by: Dictated on workstation # [id number]
--- NOTE | 2018-12-23 11:51 | Diagnostic Imaging Report ---
Indication: Nausea, vomiting and chills. Comparison made with prior study from 12/11/2018. Findings: The lungs appear clear without focal infiltrate or consolidation. There is no effusion or pneumothorax. Heart size is mildly prominent without evidence of failure. There has been previous bilateral shoulder arthroplasty. No acute or suspicious osseous abnormality is demonstrated. There is a significant unchanged scoliotic curvature of the thoracic and lumbar spine. There appears to be a prior lumbar cage device. Impression: 1. No evidence of an acute cardiopulmonary process. Dictated by: Dictated on workstation # [id number]
--- NOTE | 2018-12-23 12:05 | NUR ---
LAB DRAWING 2ND BLOOD CULTURE.
[2018-12-23] MEDS ORDERED: LORazepam INJ 2 MG/ML (ATIVAN) VIAL IVP PRN (12:45)
[2018-12-23 13:10] VITALS: BP 158/99
--- NOTE | 2018-12-23 13:10 | NUR ---
[place] Patrick admitted to room 409-1, with an admitting diagnosis of COLITIS AND DEMENTIA, on 12/23/18 from ED via W/C, accompanied by FAMILY MEMBER AND STAFF. [facility] introduced to surroundings, call light, bed controls, phone, TV, temperature control, lights, meal times, smoking policy, visitor policy, side rail policy, bathrooms and showers. Patient Rights given to patient in the handbook. [facility] verbalizes understanding that [facility] is not responsible for the loss or damage to any personal effects or valuables that are kept in the patients possession during their hospitalization.
[2018-12-23] MEDS ORDERED: CATHETER FLUSH 10 ML SYR IV PRN (13:45)
[2018-12-23] MEDS ORDERED: morphine ER 30 MG (MS CONTIN) TAB PO SCH (15:00)
[2018-12-23] MEDS: oxyCODONE/APAP 10/325MG (PERCOCET 10) TABLET PO PRN (15:20)
[2018-12-23 16:00] VITALS: BP 145/95
--- OUTSIDE RECORDS SUMMARY | 2018-12-23 16:52 | XMS REPORT | Clinical Summary ---
Author Author [facility] Organization [facility] Address Unknown Phone Unavailable Care Team Providers Care Director Of Cath Lab Name Role Phone No Pcp, Na PCP Unavailable Agustin Buitrago MD Unavailable Source Comments Some departments are not documenting in the electronic medical record. If you do not see the information that you expected, contact Release of Information in the Health Information Management department at [phone] for further assistance in locating additional records.[facility] Allergies Comments Active Allergy Reactions Severity Noted [...] Taken Vital Sign Reading 11/25/2014 11:09 AM [facility] Blood Pressure 149/87 11/25/2014 11:09 AM [facility] Pulse 72 - Temperature - - Respiratory Rate - - Oxygen Saturation - - Inhaled Oxygen - Concentration 11/25/2014 11:09 AM [facility] Weight 88.9 kg (196 lb) 11/25/2014 11:09 AM [facility] Height 157.5 cm (5' 2") 11/25/2014 11:09 AM [facility] Body Mass Index 35.85 Plan of Treatment Health Maintenance Due Date Last Done Comments HEPATITIS C SCREENING 1946 PHYSICAL (COMPREHENSIVE) 1953 EXAM DTAP/TDAP VACCINES (1 - 1964 Tdap) BREAST CANCER SCREENING 1986 COLORECTAL CANCER 1996 SCREENING SHINGLES RECOMBINANT 1996 VACCINE (1 of 2) OSTEOPOROSIS 2011 SCREENING/MONITORING PNEUMONIA (PCV13/PPSV23) 2011 VACCINES (1 of 2 - PCV13) INFLUENZA VACCINE 05/23/2019 Results Not on filefrom Last 3 Months Insurance Payer Benefit Subscriber ID Type Phone Address Plan / Group MEDICARE MEDICARE xxxxxxxxxx Medicare PART A AND B [facility] AARP xxxxxxxxxxx PPO Advance Directives Patient has advance care planning documents on file. For more information, please contact: [facility] [address] [place] [address]
--- OUTSIDE RECORDS SUMMARY | 2018-12-23 17:07 | XMS REPORT | Continuity of Care Document ---
Author Author [facility] Address Unknown Phone Unavailable Allergies Active Description Code Type Severity Reaction Onset Reported/Identified Relationship to Patient Clinical Status Yes nalbuphine [id number] Drug Allergy Mild N/A 04/23/2009 Yes Nubain Drug Allergy N/A N/A 08/19/2010 Yes Penicillins Drug Allergy N/A N/A 08/19/2010 Yes Nubain Drug Allergy 08/19/2010 Yes Penicillins Drug Allergy 08/19/2010 Yes fentanyl Drug Allergy N/A N/A 10/25/2011 Yes fentanyl Drug Allergy 10/25/2011 Yes Penicillins [id number] Drug Allergy Mild PT DOES NOT REM 04/21/2018 Yes nalbuphine [id number] Drug Allergy Mild Pt has received 11/21/2018 [...] MD 401.9 UNSPECIFIED ESSENTIAL HYPERTENSION 08/19/2010 ROSITA PACEHCO MD 627.2 SYMPTOMATIC MENOPAUSAL OR FEMALE CLIMACTERIC STATES 08/19/2010 ROSITA PACHECO MD 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 08/19/2010 RSOITA PACHECO MD 724.2 LUMBAGO 08/19/2010 ARETHA ARZATE APRN 266.2 OTHER B-COMPLEX DEFICIENCIES 08/19/2010 HUEY ROBOT TECHNICIAN, ARETHA S 272.4 OTHER AND UNSPECIFIED HYPERLIPIDEMIA 08/19/2010 HUEY ROBOT TECHNICIAN, ARETHA S 338.29 OTHER CHRONIC PAIN 08/19/2010 HUEY ROBOT TECHNICIAN, ARETHA S 401.9 UNSPECIFIED ESSENTIAL HYPERTENSION 08/19/2010 HUEY ROBOT TECHNICIAN, ARETHA S 627.2 SYMPTOMATIC MENOPAUSAL OR FEMALE CLIMACTERIC STATES 08/19/2010 HUEY ROBOT TECHNICIAN, ARETHA S 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 08/19/2010 HUEY ROBOT TECHNICIAN, ARETHA S 724.2 LUMBAGO 08/19/2010 266.2 OTHER [...] ACTINIC KERATOSIS 08/19/2010 724.2 LUMBAGO 08/19/2010 HUEY ROBOT TECHNICIAN, ARETHA S 266.2 OTHER B-COMPLEX DEFICIENCIES 08/19/2010 HUEY ROBOT TECHNICIAN, ARETHA S 272.4 OTHER AND UNSPECIFIED HYPERLIPIDEMIA 08/19/2010 HUEY ROBOT TECHNICIAN, ARETHA S 338.29 OTHER CHRONIC PAIN 08/19/2010 HUEY ROBOT TECHNICIAN, ARETHA S 401.9 UNSPECIFIED ESSENTIAL HYPERTENSION 08/19/2010 HUEY ROBOT TECHNICIAN, ARETHA S 627.2 SYMPTOMATIC MENOPAUSAL OR FEMALE CLIMACTERIC STATES 08/19/2010 HUEY ROBOT TECHNICIAN, ARETHA S 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 08/19/2010 HUEY ROBOT TECHNICIAN, ARETHA S 724.2 LUMBAGO 08/19/2010 HUEY ROBOT TECHNICIAN, ARETHA S 266.2 OTHER B-COMPLEX DEFICIENCIES 08/19/2010 HUEY ROBOT TECHNICIAN, ARETHA S 272.4 OTHER AND UNSPECIFIED HYPERLIPIDEMIA 08/19/2010 HUEY ROBOT TECHNICIAN, ARETHA S 338.29 OTHER CHRONIC PAIN 08/19/2010 HUEY ROBOT TECHNICIAN, ARETHA S 401.9 UNSPECIFIED ESSENTIAL HYPERTENSION 08/19/2010 HUEY ROBOT TECHNICIAN, ARETHA S 627.2 SYMPTOMATIC MENOPAUSAL OR FEMALE CLIMACTERIC STATES 08/19/2010 HUEY ROBOT TECHNICIAN, ARETHA S 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 08/19/2010 HUEY ROBOT TECHNICIAN, ARETHA S 724.2 LUMBAGO 08/19/2010 HUEY ROBOT TECHNICIAN, ARETHA S 266.2 OTHER B-COMPLEX DEFICIENCIES 08/19/2010 HUEY ROBOT TECHNICIAN, ARETHA S 272.4 OTHER AND UNSPECIFIED HYPERLIPIDEMIA 08/19/2010 HUEY ROBOT TECHNICIAN, ARETHA S 338.29 OTHER CHRONIC PAIN 08/19/2010 [...] ARZATE APRN S 530.81 ESOPHAGEAL REFLUX 02/22/2011 AERTHA ARZATE APRN S 789.06 Abdominal Pain Epigastric [...] MD 786.05 SHORTNESS OF BREATH 05/12/2011 HUEY ROBOT TECHNICIANLIZZY GarayNDA S 780.79 OTHER MALAISE AND FATIGUE [...] 10/10/2011 781.2 ABNORMALITY OF GAIT 10/10/2011 HUEY ROBOT TECHNICIAN, ARETHA S 300.00 ANXIETY STATE UNSPECIFIED 10/10/2011 HUEY ROBOT TECHNICIAN, ARETHA S 780.93 MEMORY LOSS 10/10/2011 HUEY ROBOT TECHNICIAN, ARETHA S 781.2 ABNORMALITY OF GAIT 10/10/2011 HUEY ROBOT TECHNICIAN, ARETHA S 300.00 ANXIETY STATE UNSPECIFIED 10/10/2011 HUEY ROBOT TECHNICIAN, ARETHA S 780.93 MEMORY LOSS 10/10/2011 HUEY ROBOT TECHNICIAN, ARETHA S 781.2 ABNORMALITY OF GAIT 10/10/2011 HUEY ROBOT TECHNICIAN, ARETHA S 300.00 ANXIETY STATE UNSPECIFIED 10/10/2011 HUEY ROBOT TECHNICIAN, ARETHA S 780.93 MEMORY LOSS 10/10/2011 HUEY ROBOT TECHNICIAN, ARETHA S 781.2 ABNORMALITY OF GAIT 10/11/2011 ROSITA PACHECO MD 288.60 Leukocytosis 10/11/2011 ROSITA PACHECO MD 288.66 Bandemia 10/11/2011 ROSITA PACHECO MD 786.09 RESPIRATORY ABNORMALITY OTHER 10/11/2011 HUEY ROBOT TECHNICIAN, ARETHA S 288.60 Leukocytosis 10/11/2011 LIZZY ARZATE APRNNDA S 288.66 Bandemia 10/11/2011 HUEY ROBOT TECHNICIAN, ARETHA S 786.09 RESPIRATORY ABNORMALITY OTHER 10/11/2011 [...] 10/11/2011 786.09 RESPIRATORY ABNORMALITY OTHER 10/11/2011 HUEY ROBOT TECHNICIAN, ARETHA S 288.60 Leukocytosis 10/11/2011 HUEY ROBOT TECHNICIAN, ARETHA S 288.66 Bandemia 10/11/2011 HUEY ROBOT TECHNICIAN, ARETHA S 786.09 RESPIRATORY ABNORMALITY OTHER 10/11/2011 HUEY ROBOT TECHNICIAN, ARETHA S 288.60 Leukocytosis 10/11/2011 HUEY ROBOT TECHNICIAN, ARETHA S 288.66 Bandemia 10/11/2011 HUEY ROBOT TECHNICIAN, ARETHA S 786.09 RESPIRATORY ABNORMALITY OTHER 10/11/2011 HUEY ROBOT TECHNICIAN, ARETHA S 288.60 Leukocytosis 10/11/2011 HUEY ROBOT TECHNICIAN, ARETHA S 288.66 Bandemia 10/11/2011 HUEY ROBOT TECHNICIAN, ARETHA S 786.09 RESPIRATORY ABNORMALITY OTHER 10/25/2011 ROSITA PACHECO MD 458.9 Hypotension Unspecified 10/25/2011 ROSITA PACHECO MD 780.1 Hallucinations 10/25/2011 HUEY BALLARD, ARETHA S 458.9 Hypotension Unspecified 10/25/2011 HUEY ROBOT TECHNICIAN, ARETHA S 780.1 Hallucinations 10/25/2011 458.9 Hypotension [...] HYPERHIDROSIS 10/29/2012 780.8 GENERALIZED HYPERHIDROSIS 10/29/2012 HUEY ROBOT TECHNICIANLIZZY GarayNDA S 780.8 GENERALIZED HYPERHIDROSIS 10/29/2012 LIZZY ARZATE APRNNDA S 780.8 GENERALIZED HYPERHIDROSIS 11/29/2012 V72.31 HAND RIVETER EXAM, ROUTINE 11/29/2012 V76.10 BREAST CANCER SCREENING 11/29/2012 GABRIELLE PANCHAL DO V72.31 HAND RIVETER EXAM, ROUTINE 11/29/2012 PANCHAL GABRIELLE DRUMMOND V76.10 BREAST CANCER SCREENING 11/29/2012 V72.31 HAND RIVETER EXAM, ROUTINE 11/29/2012 V76.10 BREAST CANCER SCREENING 11/29/2012 V72.31 HAND RIVETER EXAM, ROUTINE 11/29/2012 V76.10 BREAST CANCER SCREENING 11/29/2012 V72.31 HAND RIVETER EXAM, ROUTINE 11/29/2012 V76.10 BREAST CANCER SCREENING 11/29/2012 V72.31 HAND RIVETER EXAM, ROUTINE 11/29/2012 V76.10 BREAST CANCER SCREENING 11/29/2012 V72.31 HAND RIVETER EXAM, ROUTINE 11/29/2012 V76.10 BREAST CANCER SCREENING 11/29/2012 HUEY ROBOT TECHNICIAN ARETHA S V72.31 HAND RIVETER EXAM, ROUTINE 11/29/2012 HUEY ROBOT TECHNICIANLIZZY GarayNDA S V76.10 BREAST CANCER SCREENING 11/29/2012 HUEY ROBOT TECHNICIAN, ARETHA S V72.31 HAND RIVETER EXAM, ROUTINE 11/29/2012 HUEY ROBOT TECHNICIAN, ARETHA S V76.10 BREAST CANCER SCREENING 12/05/2012 [...] S 729.82 CRAMP OF LIMB 02/25/2013 ARETHA ARZTAE APRN S 729.82 CRAMP OF LIMB 05/01/2013 KEV PEREZP Ot 726.2 SHOULDER REGION DIS NEC 05/01/2013 KEV PEREZ GASOLINE TRUCK CRANE OPERATOR Ot 726.32 LATERAL EPICONDYLITIS 05/01/2013 KEV PEREZ GASOLINE TRUCK CRANE OPERATOR Ot V57.1 PHYSICAL THERAPY NEC 07/01/2013 MATT [...] MIRANDA DO Ot 414.01 CORONARY ATHEROSCLEROSIS OF [place] CORON 03/15/2014 ANOOP MIRANDA DO Ot 496 CHR AIRWAY OBSTRUCT NEC 03/15/2014 ANOOP MIRANDA DO Ot 564.00 UNSPEC CONSTIPATION 03/15/2014 ANOOP MIRANDA DO Ot 715.90 OSTEOARTHROS NOS-UNSPEC 03/15/2014 [facility] DRUMMOND Ot 719.40 JOINT PAIN-UNSPEC 03/15/2014 [facility] ANOOP DRUMMOND Ot 724.5 BACKACHE NOS 03/15/2014 [facility] ANOOP DRUMMOND Ot 733.6 TIETZE'S DISEASE 03/15/2014 [facility]OP DRUMMOND Ot 782.3 EDEMA 03/15/2014 ANOOP [...] 496 CHR AIRWAY OBSTRUCT NEC 04/11/2014 FRANCY VEDRIN DO Ot 573.3 HEPATITIS NOS 04/11/2014 RFANCY VERDIN DO Ot 724.00 SPINAL STENOSIS NOS [...] (W/O MENT OF HEMORR 09/16/2014 STACY LOWE GASOLINE TRUCK CRANE OPERATOR Ot 719.47 JOINT PAIN-ANKLE 09/16/2014 STACY LOWE GASOLINE TRUCK CRANE OPERATOR Ot 724.5 BACKACHE NOS 09/16/2014 STACY LOWE GASOLINE TRUCK CRANE OPERATOR Ot V57.1 PHYSICAL THERAPY NEC 10/14/2014 FRANCY [...] 780.93 12/15/2014 Ot 781.2 12/15/2014 STACY LOWE GASOLINE TRUCK CRANE OPERATOR Ot 719.47 12/15/2014 STACY LOWE GASOLINE TRUCK CRANE OPERATOR Ot 722.52 12/15/2014 STACY LOWE GASOLINE TRUCK CRANE OPERATOR Ot 736.70 12/15/2014 STACY LOWE GASOLINE TRUCK CRANE OPERATOR Ot 737.30 12/15/2014 STACY LOWE GASOLINE TRUCK CRANE OPERATOR Ot 756.12 12/15/2014 ARETHA ARZATE GASOLINE TRUCK CRANE OPERATOR Ot 611.71 12/15/2014 ARETHA ARZATE GASOLINE TRUCK CRANE OPERATOR Ot 611.79 12/15/2014 ABDELRAHMAN COLLINS, CADEN Guerrero Ot 397.0 12/15/2014 ABDELRAHMAN COLLINS, CADEN Guerrero Ot 424.0 12/15/2014 ABDELRAHMAN COLLINS, CADEN Guerrero Ot 786.09 12/15/2014 ABDELRAHMAN COLLINS, CADEN Guerrero Ot 786.50 12/15/2014 ABDELRAHMAN COLLINS, CADEN Guerrero Ot 786.09 12/15/2014 ABDELRAHMAN COLLINS, CADEN Guerrero Ot 786.50 12/15/2014 ANOOP MIRANDA DO Ot V54.16 12/15/2014 STACY LOWE GASOLINE TRUCK CRANE OPERATOR Ot V76.12 12/15/2014 LADONNA GALLARDO MD Ot V72.84 01/22/2015 Ot 715.31 02/18/2015 Ot 715.31 02/18/2015 Ot 611.72 02/18/2015 Ot V76.12 02/18/2015 Ot 793.80 02/18/2015 Ot 793.80 02/18/2015 Ot 338.29 02/18/2015 Ot 724.2 02/18/2015 Ot 786.05 02/18/2015 Ot 780.93 02/18/2015 Ot 781.2 02/18/2015 Ot 331.9 02/18/2015 Ot 780.93 02/18/2015 Ot 781.2 02/18/2015 STACY LOWE GASOLINE TRUCK CRANE OPERATOR Ot 719.47 02/18/2015 STACY LOWE GASOLINE TRUCK CRANE OPERATOR Ot 722.52 02/18/2015 STACY LOWE GASOLINE TRUCK CRANE OPERATOR Ot 736.70 02/18/2015 STACY LOWE GASOLINE TRUCK CRANE OPERATOR Ot 737.30 02/18/2015 STACY LOWE GASOLINE TRUCK CRANE OPERATOR Ot 756.12 02/18/2015 ARETHA ARZATE GASOLINE TRUCK CRANE OPERATOR Ot 611.71 02/18/2015 ARETHA ARZATE GASOLINE TRUCK CRANE OPERATOR Ot 611.79 02/18/2015 ABDELRAHMAN COLLINS, CADEN Guerrero Ot 397.0 02/18/2015 ABDELRAHMAN COLLINS, CADEN Guerrero Ot 424.0 02/18/2015 ABDELRAHMAN COLLINS, CADEN Guerrero Ot 786.09 02/18/2015 ABDELRAHMAN COLLINS, CADEN Guerrero Ot 786.50 02/18/2015 ABDELRAHMAN COLLINS, CADEN Guerrero Ot 786.09 02/18/2015 ABDELRAHMAN COLLINS, CADEN Guerrero Ot 786.50 02/18/2015 ANOOP MIRANDA DO Ot V54.16 02/18/2015 STACY LOWE [facility] Ot V76.12 02/18/2015 LADONNA GALLARDO MD Ot V72.84 02/18/2015 Ot 715.91 02/18/2015 Ot 715.31 02/26/2015 Ot 611.72 02/26/2015 Ot V76.12 02/26/2015 Ot 793.80 02/26/2015 Ot 793.80 02/26/2015 Ot 338.29 02/26/2015 Ot 724.2 02/26/2015 Ot 786.05 02/26/2015 Ot 780.93 02/26/2015 Ot 781.2 02/26/2015 Ot 331.9 02/26/2015 Ot 780.93 02/26/2015 Ot 781.2 02/26/2015 STACY LOWE [facility] Ot 719.47 02/26/2015 STACY LOWE [facility] Ot 722.52 02/26/2015 STACY LOWE GASOLINE TRUCK CRANE OPERATOR Ot 736.70 02/26/2015 STACY LOWE GASOLINE TRUCK CRANE OPERATOR Ot 737.30 02/26/2015 STACY LOWE [facility] Ot 756.12 02/26/2015 ARETHA ARZATE GASOLINE TRUCK CRANE OPERATOR Ot 611.71 02/26/2015 ARETHA ARZATE GASOLINE TRUCK CRANE OPERATOR Ot 611.79 02/26/2015 ABDELRAHMAN COLLINS, CADEN Guerrero Ot 397.0 02/26/2015 CADEN QUICK MD Ot 424.0 02/26/2015 CADEN QUICK MD Ot 786.09 02/26/2015 ABDELRAHMAN COLLINS, CADEN Guerrero Ot 786.50 02/26/2015 ABDELRAHMAN COLLINS, CADEN Guerrero Ot 786.09 02/26/2015 ABDELRAHMAN COLLINS, CADEN Guerrero Ot 786.50 02/26/2015 ANOOP MIRANDA DO Ot V54.16 02/26/2015 STACY LOWE GASOLINE TRUCK CRANE OPERATOR Ot V76.12 02/26/2015 LADONNA GALLARDO MD Ot V72.84 02/26/2015 Ot 715.91 02/26/2015 Ot 715.31 03/02/2015 Ot 611.72 03/02/2015 Ot V76.12 03/02/2015 Ot 793.80 03/02/2015 Ot 793.80 03/02/2015 Ot 338.29 03/02/2015 Ot 724.2 03/02/2015 Ot 786.05 03/02/2015 Ot 780.93 03/02/2015 Ot 781.2 03/02/2015 Ot 331.9 03/02/2015 Ot 780.93 03/02/2015 Ot 781.2 03/02/2015 STACY LOWE GASOLINE TRUCK CRANE OPERATOR Ot 719.47 03/02/2015 STACY LOWE GASOLINE TRUCK CRANE OPERATOR Ot 722.52 03/02/2015 STACY LOWE GASOLINE TRUCK CRANE OPERATOR Ot 736.70 03/02/2015 STACY LOWE GASOLINE TRUCK CRANE OPERATOR Ot 737.30 03/02/2015 STACY LOWE GASOLINE TRUCK CRANE OPERATOR Ot 756.12 03/02/2015 ARETHA ARZATE GASOLINE TRUCK CRANE OPERATOR Ot 611.71 03/02/2015 ARETHA ARZATE GASOLINE TRUCK CRANE OPERATOR Ot 611.79 03/02/2015 ABDELRAHMAN COLLINS, CADEN Guerrero Ot 397.0 03/02/2015 ABDELRAHMAN COLLINS, CADEN Guerrero Ot 424.0 03/02/2015 ABDELRAHMAN COLLINS, CADEN Guerrero Ot 786.09 03/02/2015 ABDELRAHMAN COLLINS, CADEN Guerrero Ot 786.50 03/02/2015 ABDELRAHMAN COLLINS, CADEN Guerrero Ot 786.09 03/02/2015 ABDELRAHMAN COLLINS, CADEN Guerrero Ot 786.50 03/02/2015 ANOOP MIRANDA DO Ot V54.16 03/02/2015 STACY LOWE GASOLINE TRUCK CRANE OPERATOR Ot V76.12 03/02/2015 PAULINA COLLINS, LADONNA Ot [...] ENID DO, HEATHER Frank Ot V54.81 04/27/2015 NEID DO, HEATHER Frank Ot V57.1 05/11/2015 ENID [...] J44.9 CHRONIC OBSTRUCTIVE PULMONARY DISEASE, U 08/05/2015 EILO LEA DO Ot M24.671 ANKYLOSIS, RIGHT ANKLE [...] 780.93 08/07/2015 Ot 781.2 08/07/2015 STACY LOWE GASOLINE TRUCK CRANE OPERATOR Ot 719.47 08/07/2015 STACY LOWE GASOLINE TRUCK CRANE OPERATOR Ot 722.52 08/07/2015 STACY LOWE GASOLINE TRUCK CRANE OPERATOR Ot 736.70 08/07/2015 STACY LOWE GASOLINE TRUCK CRANE OPERATOR Ot 737.30 08/07/2015 STACY LOWE GASOLINE TRUCK CRANE OPERATOR Ot 756.12 08/07/2015 ARETHA ARZATE GASOLINE TRUCK CRANE OPERATOR Ot 611.71 08/07/2015 ARETHA ARZATE GASOLINE TRUCK CRANE OPERATOR Ot 611.79 08/07/2015 CADEN QUICK MD Ot [...] 780.93 09/11/2015 Ot 781.2 09/11/2015 STACY LOWE GASOLINE TRUCK CRANE OPERATOR Ot 719.47 09/11/2015 STACY LOWE GASOLINE TRUCK CRANE OPERATOR Ot 722.52 09/11/2015 STACY LOWE GASOLINE TRUCK CRANE OPERATOR Ot 736.70 09/11/2015 STACY LOWE GASOLINE TRUCK CRANE OPERATOR Ot 737.30 09/11/2015 STACY LOWE GASOLINE TRUCK CRANE OPERATOR Ot 756.12 09/11/2015 ARETHA ARZATE GASOLINE TRUCK CRANE OPERATOR Ot 611.71 09/11/2015 ARETHA ARZATE GASOLINE TRUCK CRANE OPERATOR Ot 611.79 09/11/2015 CADEN QUICK MD Ot 397.0 09/11/2015 ABDELRAHMAN COLLINS, CADEN Guerrero Ot 424.0 09/11/2015 CADEN QUICK MD Ot 786.09 09/11/2015 CADEN QUICK MD Ot 786.50 09/11/2015 ABDELRAHMAN COLLINS, CADEN Guerrero Ot 786.09 09/11/2015 CADEN QUICK MD Ot 786.50 09/11/2015 ANOOP MIRANDA DO Ot V54.16 09/11/2015 STACY LOWE GASOLINE TRUCK CRANE OPERATOR Ot V76.12 09/11/2015 LADONNA GALLARDO MD Ot V72.84 09/11/2015 Ot 715.91 09/11/2015 Ot 715.31 09/11/2015 LEANDRO FIGUEROA MD Ot V76.12 10/05/2015 LEANDRO FIGUEROA MD Ot M41.9 10/05/2015 CAROLINA COLLINS, LEANDRO A Ot M47.894 10/15/2015 STACY LOWE GASOLINE TRUCK CRANE OPERATOR Ot M47.894 10/15/2015 STACY LOWE GASOLINE TRUCK CRANE OPERATOR Ot M47.896 10/21/2015 GWEN COLLINS, MATT Oneill [...] HEATHER F Ot M75.101 10/29/2015 STACY LOWE GASOLINE TRUCK CRANE OPERATOR Ot M47.894 10/29/2015 STACY LOWE GASOLINE TRUCK CRANE OPERATOR Ot M47.896 11/05/2015 CAROLINA COLLINS, LEANDRO A [...] Ot 719.47 JOINT PAIN-ANKLE 12/01/2017 STACY LOWE GASOLINE TRUCK CRANE OPERATOR Ot 722.52 LUMB/LUMBOSAC DISC DEGEN 12/01/2017 STACY LOWEP Ot 736.70 ACQ ANKLE-FOOT DEF NOS 12/01/2017 STACY LOWE [facility] Ot 737.30 IDIOPATHIC SCOLIOSIS 12/01/2017 STACY LOWE [facility] Ot 756.12 SPONDYLOLISTHESIS 12/01/2017 ARETHA ARZATE GASOLINE TRUCK CRANE OPERATOR Ot 611.71 MASTODYNIA 12/01/2017 ARETHA ARZATE [facility] Ot 611.79 SYMPTOMS IN BREAST NEC [...] TRAUMATIC FX LOWER LEG 12/01/2017 STACY LOWE [facility] Ot V76.12 OTH SCREEN MAMMO-MALIGN NEOPLASM OF [place] 12/01/2017 PAULINA COLLINS, LADONNA Ot V72.84 EXAM PRE-OPERATIVE NOS 12/01/2017 Ot 715.91 OSTEOARTHROS NOS-SHLDER 12/01/2017 Ot 715.31 LOC OSTEOARTH NOS-SHLDER 12/01/2017 CAROLINA COLLINS, LEANDRO Reyes Ot V76.12 OTH SCREEN MAMMO-MALIGN NEOPLASM OF [place] 12/01/2017 BILLY CARO APRN Ot R06.02 SHORTNESS OF BREATH 12/01/2017 STACY LOWE [facility] Ot 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, THORACIC REGION 12/01/2017 STACY LOWE [facility] Ot M47.896 OTHER SPONDYLOSIS, LUMBAR REGION [...] Ot J18.9 PNEUMONIA, UNSPECIFIED ORGANISM 12/04/2017 KATHIA ELLSI MD, Ot J44.9 CHRONIC OBSTRUCTIVE PULMONARY DISEASE, [...] PRESENCE OF RIGHT ARTIFICIAL SHOULDER ADILENE 12/04/2017 KATHAI ELLIS MD, Ot Z96.612 PRESENCE OF LEFT [...] Z98.84 BARIATRIC SURGERY STATUS 04/21/2018 STACY LOWE GASOLINE TRUCK CRANE OPERATOR Ot 719.47 JOINT PAIN-ANKLE 04/21/2018 STACY LOWE GASOLINE TRUCK CRANE OPERATOR Ot 722.52 LUMB/LUMBOSAC DISC DEGEN 04/21/2018 STACY LOWE GASOLINE TRUCK CRANE OPERATOR Ot 736.70 ACQ ANKLE-FOOT DEF NOS 04/21/2018 STACY LOWE GASOLINE TRUCK CRANE OPERATOR Ot 737.30 IDIOPATHIC SCOLIOSIS 04/21/2018 STACY LOWE GASOLINE TRUCK CRANE OPERATOR Ot 756.12 SPONDYLOLISTHESIS 04/21/2018 ARETHA ARZATE GASOLINE TRUCK CRANE OPERATOR Ot 611.71 MASTODYNIA 04/21/2018 ARETHA ARZATE GASOLINE TRUCK CRANE OPERATOR Ot 611.79 SYMPTOMS IN BREAST NEC 04/21/2018 [...] R06.02 SHORTNESS OF BREATH 04/21/2018 STACY LOWE GASOLINE TRUCK CRANE OPERATOR Ot 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, THORACIC REGION 04/21/2018 STACY LOWE GASOLINE TRUCK CRANE OPERATOR Ot M47.896 OTHER SPONDYLOSIS, LUMBAR REGION 04/21/2018 [...] Z98.84 BARIATRIC SURGERY STATUS 04/24/2018 JH BARAHONA ROBOT TECHNICIAN Ot Z98.890 OTHER SPECIFIED POSTPROCEDURAL STATES 06/28/2018 [...] Z98.84 BARIATRIC SURGERY STATUS 06/28/2018 STACY LOWE GASOLINE TRUCK CRANE OPERATOR Ot 719.47 JOINT PAIN-ANKLE 06/28/2018 STACY LOWE GASOLINE TRUCK CRANE OPERATOR Ot 722.52 LUMB/LUMBOSAC DISC DEGEN 06/28/2018 STACY LOWE GASOLINE TRUCK CRANE OPERATOR Ot 736.70 ACQ ANKLE-FOOT DEF NOS 06/28/2018 STACY LOWE GASOLINE TRUCK CRANE OPERATOR Ot 737.30 IDIOPATHIC SCOLIOSIS 06/28/2018 STACY LOWE GASOLINE TRUCK CRANE OPERATOR Ot 756.12 SPONDYLOLISTHESIS 06/28/2018 ARETHA ARZATE GASOLINE TRUCK CRANE OPERATOR Ot 611.71 MASTODYNIA 06/28/2018 ARETHA ARZATE GASOLINE TRUCK CRANE OPERATOR Ot 611.79 SYMPTOMS IN BREAST NEC 06/28/2018 [...] Ot K21.9 GASTRO-ESOPHAGEAL REFLUX DISEASE WITHOUT 06/29/2018 AIRMA MARVIN MD Ot M25.532 PAIN IN LEFT [...] ELLIS MD Ot M54.9 DORSALGIA, UNSPECIFIED 07/07/2018 KAHTIA ELLIS MD Ot Z87.891 PERSONAL HISTORY OF [...] MAMMOGRAM FOR MALIGNANT NE 10/03/2018 STACY LOWE GASOLINE TRUCK CRANE OPERATOR Ot 719.47 JOINT PAIN-ANKLE 10/03/2018 STACY LOWE GASOLINE TRUCK CRANE OPERATOR Ot 722.52 LUMB/LUMBOSAC DISC DEGEN 10/03/2018 STACY LOWE GASOLINE TRUCK CRANE OPERATOR Ot 736.70 ACQ ANKLE-FOOT DEF NOS 10/03/2018 STACY LOWE GASOLINE TRUCK CRANE OPERATOR Ot 737.30 IDIOPATHIC SCOLIOSIS 10/03/2018 STACY LOWE GASOLINE TRUCK CRANE OPERATOR Ot 756.12 SPONDYLOLISTHESIS 10/03/2018 ANOOP MIRANDA DO Ot V54.16 AFTERCARE HEALING TRAUMATIC FX LOWER LEG 10/03/2018 STACY LOWE GASOLINE TRUCK CRANE OPERATOR Ot V76.12 OTH SCREEN MAMMO-MALIGN NEOPLASM OF [...] MD, Ot I25.10 ATHSCL HEART DISEASE OF [place] CORONARY 11/21/2018 LADONNA GALLARDO MD, Ot K21.0 GASTRO-ESOPHAGEAL REFLUX DISEASE WITH ES 11/21/2018 LADONNA GALLARDO MD, Ot K25.9 GASTRIC ULCER, UNSP ACUTE OR CHRONIC, 11/21/2018 LADONNA GALLARDO MD, Ot K44.9 DIAPHRAGMATIC HERNIA WITHOUT OBSTRUCTION 11/21/2018 LADONNA GALLARDO MD Ot Z79.82 HAT LACER (CURRENT) USE OF ASPIRIN 11/21/2018 LADONNA GALLARDO MD, Ot Z79.899 OTHER HAT LACER (CURRENT) DRUG THERAPY 11/21/2018 LADONNA GALLARDO MD, [...] MD, Ot I25.10 ATHSCL HEART DISEASE OF [place] CORONARY 11/26/2018 LADONNA GALLARDO MD Ot K21.0 GASTRO-ESOPHAGEAL REFLUX DISEASE WITH ES 11/26/2018 LADONNA GALLARDO MD, Ot K25.9 GASTRIC ULCER, UNSP ACUTE OR CHRONIC, 11/26/2018 LADONNA GALLARDO MD, Ot K44.9 DIAPHRAGMATIC HERNIA WITHOUT OBSTRUCTION 11/26/2018 LADONNA GALLARDO MD Ot Z79.82 HAT LACER (CURRENT) USE OF ASPIRIN 11/26/2018 LADONNA GALLARDO MD Ot Z79.899 OTHER CORRECTION (CURRENT) DRUG THERAPY 11/26/2018 LADONNA GALLARDO MD, [...] F32.9 MAJOR DEPRESSIVE DISORDER, SINGLE EPISOD 11/28/2018 LADONAN GALLARDO MD, Ot F41.9 ANXIETY DISORDER, UNSPECIFIED 11/28/2018 LADONNA GALLARDO MD Ot I10 ESSENTIAL (PRIMARY) HYPERTENSION 11/28/2018 LADONNA GALLARDO MD, Ot I25.10 ATHSCL HEART DISEASE OF [place] CORONARY 11/28/2018 LADONNA GALLARDO MD, Ot K21.0 GASTRO-ESOPHAGEAL REFLUX DISEASE WITH ES 11/28/2018 LADONNA GALLARDO MD, Ot K25.9 GASTRIC ULCER, UNSP ACUTE OR CHRONIC, 11/28/2018 LADONNA GALLARDO MD, Ot K44.9 DIAPHRAGMATIC HERNIA WITHOUT OBSTRUCTION 11/28/2018 LADONNA GALLARDO MD, Ot Z79.82 CORRECTION (CURRENT) USE OF ASPIRIN 11/28/2018 LADONNA GALLARDO MD, Ot Z79.899 OTHER HAT LACER (CURRENT) DRUG THERAPY 11/28/2018 LADONNA GALLARDO MD, Ot Z87.891 PERSONAL HISTORY OF NICOTINE DEPENDENCE 11/28/2018 LADONNA GALLARDO MD, Ot 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 11/28/2018 LADONNA GALLARDO MD, Ot Z96.612 PRESENCE OF LEFT ARTIFICIAL SHOULDER LORAINE 11/28/2018 LADONNA GALLARDO MD Ot Z96.653 PRESENCE OF ARTIFICIAL KNEE [...] BILL LOZOYA Ot R07.9 CHEST PAIN, UNSPECIFIED 12/13/2018 LEANDRO ELLIS MD Ot A41.9 SEPSIS, UNSPECIFIED ORGANISM 12/13/2018 LEANDRO ELLIS MD Ot E78.00 PURE HYPERCHOLESTEROLEMIA, UNSPECIFIED 12/13/2018 LEANDRO ELLIS MD Ot E78.2 MIXED HYPERLIPIDEMIA 12/13/2018 LEANDRO ELLIS MD Ot F41.9 ANXIETY DISORDER, UNSPECIFIED 12/13/2018 LEANDRO ELLIS MD, Ot G47.30 SLEEP APNEA, UNSPECIFIED 12/13/2018 LEANDRO ELLIS MD Ot I95.1 ORTHOSTATIC HYPOTENSION 12/13/2018 LEANDRO ELLIS MD, Ot J44.9 CHRONIC OBSTRUCTIVE PULMONARY DISEASE, U 12/13/2018 LEANDRO ELLIS MD, Ot N17.9 ACUTE KIDNEY FAILURE, UNSPECIFIED 12/13/2018 LEANDRO ELLIS MD, Ot N39.0 URINARY TRACT INFECTION, SITE NOT SPECIF 12/13/2018 LEANDRO ELLIS MD Ot R11.2 NAUSEA WITH VOMITING, UNSPECIFIED 12/13/2018 LEANDRO ELLIS MD Ot S00.11XA CONTUSION OF RIGHT EYELID AND PERIOCULAR 12/13/2018 LEANDRO ELLIS MD Ot S51.012A LACERATION WITHOUT FOREIGN BODY OF LEFT 12/13/2018 LEANDRO ELLIS MD Ot S70.01XA CONTUSION OF RIGHT HIP, INITIAL ENCOUNTE 12/13/2018 LEANDRO ELLIS MD Ot S70.11XA CONTUSION OF RIGHT THIGH, INITIAL ENCOUN 12/13/2018 LEANDRO ELLIS MD Ot W19.XXXA UNSPECIFIED FALL, INITIAL ENCOUNTER 12/13/2018 LEANDRO ELLIS MD Ot Z66 DO NOT RESUSCITATE 12/13/2018 LEANDRO ELLIS MD, Ot Z98.84 BARIATRIC SURGERY STATUS Procedures Code Description [place] [address] ROUTINE VENIPUNCTURE 10/29/2012 93196 XRAY FOOT RIGHT COMP MIN 3 VIEWS 10/29/2012 Podiatry Tisha Marley 10/29/2012 18115 UA LONG DIP 10/29/2012 61486 URINE DRUG SCREEN (IN-HOUSE ) 10/29/2012 20535 CBC 10/29/2012 88436 CRP 10/30/2012 KEV COMBS 12/18/2012 33352 JOINT INJECTION- INTERMEDIATE JOINT 02/07/2013 57172 ROUTINE VENIPUNCTURE 02/25/2013 50507 A1C (IN-HOUSE) 02/25/2013 01848 CMP 02/25/2013 93571 LIPID PANEL 02/25/2013 6805155 GFR CALC (RESULT ONLY) 02/25/2013 95843 TSH 02/25/2013 24154 MAMMOGRAM DX, ROSITA 03/11/2013 74564 URINE DRUG SCREEN (IN-HOUSE ) 07/03/2013 G0008 FLU ADMINISTRATION ( MEDICARE ONLY) 07/03/2013 [id number] REPLACEMENT OF L SHOULDER JT WITH SYNTH [...] 7-25 CREATININE 0.75 mg/dL 0.60-0.93 eGFR NON-AFR. [place] 80 mL/min/1.73m2 > OR=60 eGFR 93 mL/min/1.73m2 [...] 12/11/18 15:15 BNP level 32.1 pg/mL <100.0 Bacterial blood culture - 12/11/18 15:15 Bacterial blood culture NG NRG Blood lactic acid measurement (moles/volume) - 12/11/18 15:52 Blood lactic acid measurement (moles/volume) 1.37 mmol/L 0.50-2.00 Bacterial blood culture - 12/11/18 15:52 Bacterial blood culture NG NRG Complete urinalysis with reflex to culture - [...] urine sediment by light microscopy >50 NRG Bacterial urine culture - 12/11/18 16:55 Bacterial urine culture [id number] NRG COLONY COUNT 20,000 CFU/ML NRG FTX;REPORTABLE ID REPORTED 12/12/18 18:05 NRG FREE TEXT ENTRY 2 NOSUSCEPTIBILITY PERFORMED NRG Complete blood count (CBC) with automated white blood cell (WBC) differential - 12/12/18 04:00 Blood leukocytes automated count (number/volume) 6.7 10*3/uL 4.3-11.0 Blood erythrocytes automated count (number/volume) 4.05 10*6/uL 4.35-5.85 Venous blood hemoglobin measurement (mass/volume) 12.1 g/dL 11.5-16.0 Blood hematocrit (volume fraction) 38 % 35-52 Automated erythrocyte mean corpuscular volume 93 [foz_us] 80-99 Automated erythrocyte mean corpuscular hemoglobin (mass per erythrocyte) 30 pg 25-34 Automated erythrocyte mean corpuscular hemoglobin concentration measurement ( mass/volume) 32 g/dL 32-36 Automated erythrocyte distribution width ratio 15.7 % 10.0-14.5 Automated blood platelet count (count/volume) 231 10*3/uL 130-400 Automated blood platelet mean volume measurement 10.0 [foz_us] 7.4-10.4 Automated blood neutrophils/100 leukocytes 65 % 42-75 Automated blood lymphocytes/100 leukocytes 24 % 12-44 Blood monocytes/100 leukocytes 8 % 0-12 Automated blood eosinophils/100 leukocytes 2 % 0-10 Automated blood basophils/100 leukocytes 0 % 0-10 Blood neutrophils automated count (number/volume) 4.3 10*3 1.8-7.8 Blood lymphocytes automated count (number/volume) 1.6 10*3 1.0-4.0 Blood monocytes automated count (number/volume) 0.6 10*3 0.0-1.0 Automated eosinophil count 0.1 10*3/uL 0.0-0.3 Automated blood basophil count (count/volume) 0.0 10*3/uL 0.0-0.1 Comprehensive metabolic panel - 12/12/18 04:00 Serum or plasma sodium measurement (moles/volume) 139 mmol/L 135-145 Serum or plasma potassium measurement (moles/volume) 3.5 mmol/L 3.6-5.0 Serum or plasma chloride measurement (moles/volume) 109 mmol/L 98-107 Carbon dioxide 23 mmol/L 21-32 Serum or plasma anion gap determination (moles/volume) 7 mmol/L 5-14 Serum or plasma urea nitrogen measurement (mass/volume) 16 mg/dL 7-18 Serum or plasma creatinine measurement (mass/volume) 0.98 mg/dL 0.60-1.30 Serum or plasma urea nitrogen/creatinine mass ratio 16 NRG Serum or plasma creatinine measurement with calculation of estimated glomerular filtration rate 56 NRG Serum or plasma glucose measurement (mass/volume) 85 mg/dL 70-105 Serum or plasma calcium measurement (mass/volume) 7.9 mg/dL 8.5-10.1 Serum or plasma total bilirubin measurement (mass/volume) 0.5 mg/dL 0.1-1.0 Serum or plasma alkaline phosphatase measurement (enzymatic activity/volume) 150 U/L 40-136 Serum or plasma aspartate aminotransferase measurement (enzymatic activity/ volume) 53 U/L 5-34 Serum or plasma alanine aminotransferase measurement (enzymatic activity/volume ) 24 U/L 0-55 Serum or plasma protein measurement (mass/volume) 4.7 g/dL 6.4-8.2 Serum or plasma albumin measurement (mass/volume) 2.6 g/dL 3.2-4.5 CALCIUM CORRECTED 9.0 mg/dL 8.5-10.1 Complete blood count (CBC) with automated white blood cell (WBC) differential - 12/13/18 05:50 Blood leukocytes automated count (number/volume) 5.5 10*3/uL 4.3-11.0 Blood erythrocytes automated count (number/volume) 3.77 10*6/uL 4.35-5.85 Venous blood hemoglobin measurement (mass/volume) 11.3 g/dL 11.5-16.0 Blood hematocrit (volume fraction) 35 % 35-52 Automated erythrocyte mean corpuscular volume 93 [foz_us] 80-99 Automated erythrocyte mean corpuscular hemoglobin (mass per erythrocyte) 30 pg 25-34 Automated erythrocyte mean corpuscular hemoglobin concentration measurement ( mass/volume) 32 g/dL 32-36 Automated erythrocyte distribution width ratio 16.2 % 10.0-14.5 Automated blood platelet count (count/volume) 232 10*3/uL 130-400 Automated blood platelet mean volume measurement 9.8 [foz_us] 7.4-10.4 Automated blood neutrophils/100 leukocytes 55 % 42-75 Automated blood lymphocytes/100 leukocytes 33 % 12-44 Blood monocytes/100 leukocytes 10 % 0-12 Automated blood eosinophils/100 leukocytes 2 % 0-10 Automated blood basophils/100 leukocytes 0 % 0-10 Blood neutrophils automated count (number/volume) 3.0 10*3 1.8-7.8 Blood lymphocytes automated count (number/volume) 1.8 10*3 1.0-4.0 Blood monocytes automated count (number/volume) 0.5 10*3 0.0-1.0 Automated eosinophil count 0.1 10*3/uL 0.0-0.3 Automated blood basophil count (count/volume) 0.0 10*3/uL 0.0-0.1 Whole blood basic metabolic panel - 12/13/18 05:50 Serum or plasma sodium measurement (moles/volume) 139 mmol/L 135-145 Serum or plasma potassium measurement (moles/volume) 3.8 mmol/L 3.6-5.0 Serum or plasma chloride measurement (moles/volume) 109 mmol/L 98-107 Carbon dioxide 23 mmol/L 21-32 Serum or plasma anion gap determination (moles/volume) 7 mmol/L 5-14 Serum or plasma urea nitrogen measurement (mass/volume) 9 mg/dL 7-18 Serum or plasma creatinine measurement (mass/volume) 0.73 mg/dL 0.60-1.30 Serum or plasma urea nitrogen/creatinine mass ratio 12 NRG Serum or plasma creatinine measurement with calculation of estimated glomerular filtration rate > NRG Serum or plasma glucose measurement (mass/volume) 84 mg/dL 70-105 Serum or plasma calcium measurement (mass/volume) 8.0 mg/dL 8.5-10.1 VITAMIN D 25-HYDROXY - 12/13/18 05:50 VITAMIN D 25-HYDROXY (TOTAL) 13.8 % 30.0-100.0 Encounters ACCT No. Visit Date/Time Discharge Status Pt. Type Provider Facility Loc./Unit Complaint [id number] 07/03/2013 10:48:00 07/03/2013 23:59:59 CLS Outpatient ARETHA ARZATE APRN [id number] 07/03/2013 10:48:00 07/03/2013 23:59:59 CLS Outpatient ARETHA ARZATE APRN [id number] 01/17/2013 12:22:00 01/17/2013 23:59:59 CLS Outpatient [id number] 12/13/2012 12:05:00 12/13/2012 23:59:59 CLS Outpatient GABRIELLE PANCHAL DO [id number] 11/29/2012 10:17:00 11/29/2012 23:59:59 CLS Outpatient [id number] 10/29/2012 12:20:00 10/29/2012 23:59:59 CLS Outpatient ARETHA ARZATE APRN [id number] 09/27/2012 09:04:00 09/27/2012 23:59:59 CLS Outpatient JUNIOR COLLINS, ROSITA 94 08/15/2012 10:23:00 08/15/2012 23:59:59 CLS Outpatient ARETHA ARZATE APRN [id number] 03/29/2013 13:29:00 Document Registration [id number] 03/07/2013 12:28:00 Document Registration [id number] 02/25/2013 14:10:00 Document Registration [id number] 02/07/2013 13:42:00 Document Registration [id number] 12/15/2018 14:00:00 12/15/2018 23:59:59 CLS Preadmit ABDELRAHMAN COLLINS, CADEN Guerrero [facility] CATH ABN STRESS [id number] 12/11/2018 21:25:00 12/13/2018 13:00:00 DIS Inpatient RHONDA COLLINS, LEANDRO [facility] 4TH SEPSIS;UTI;ARF; ORTHOSTATIC HYPOTENSION;N/V [id number] 12/03/2018 07:59:00 12/03/2018 23:59:59 CLS Outpatient BILL LOZOYA [facility] CARD CAROTID ARTERY STENOSIS [id number] 11/21/2018 09:04:00 11/21/2018 13:00:00 DIS Outpatient LADONNA GALLARDO MD [facility] ENDO ABD PAIN/N V/REFLUX [id number] 11/19/2018 05:54:00 11/19/2018 15:05:00 DIS Outpatient LADONNA GALLARDO MD [facility] PREOP EGD [id number] 11/06/2018 15:57:00 11/06/2018 23:59:59 CLS Outpatient BILL LOZOYA [facility] CARD CAROTID ARTERY STENOSIS [id number] 09/25/2018 14:32:00 09/25/2018 23:59:59 CLS Preadmit NEERU CANO MD [facility] RAD LUMBAR RADICULOPATHY M54.16 [id number] 08/28/2018 13:00:00 08/28/2018 23:59:59 CLS Outpatient NEERU CANO MD [facility] RT COPD [id number] 08/28/2018 12:39:00 08/28/2018 23:59:59 CLS Preadmit NEERU CANO MD [facility] RAD CHRONIC OBSTRUCTIVE PULMONARY DISEASE [id number] 08/07/2018 08:20:00 08/07/2018 23:59:59 CLS Outpatient NEERU CANO MD [facility] RAD BREAST CANCER SCREENING [id number] 07/24/2018 13:00:00 07/24/2018 13:00:00 CAN Preadmit HEATHER ROSSI DO [facility] REHAB LT SHOULDER PAIN CERVICAL SPONDYLOSIS CERVICAL DDD [id number] 07/05/2018 13:03:00 07/23/2018 13:24:00 DIS Outpatient HEATHER ROSSI DO [facility] REHAB LT SHOULDER PAIN CERVICAL SPONDYLOSIS CERVICAL DDD [id number] 07/05/2018 16:25:00 07/07/2018 14:30:00 DIS Inpatient KATHIA ELLIS MD [facility] 4TH HYPOXIA [id number] 06/27/2018 22:48:00 06/28/2018 01:43:00 DIS Emergency SHAVONNE COLLINS, AIRAM Chandra [facility] ER FALL/L SIDE PAIN [id number] 04/21/2018 16:00:00 04/21/2018 18:15:00 DIS Emergency JH BARAHONA APRN [facility] ER HIP PAIN,FALL,NECK PAIN, LOSS OF CONSCIOUSNESS [id number] 01/05/2018 07:50:00 01/05/2018 12:05:00 DIS Outpatient MARK STANLEY MD [facility] ENDO DYSPHAGIA/EPIGASTRIC LUQ PAIN/HX OF COLON POLYP [id number] 01/01/2018 05:36:00 01/01/2018 15:34:00 DIS Outpatient MARK STANLEY MD [facility] PREOP COLONOSCOPY/EGD [id number] 12/01/2017 18:00:00 12/04/2017 15:00:00 DIS Inpatient KTAHIA ELLIS MD [facility] 4TH LLL PNA [id number] 11/21/2017 05:49:00 11/21/2017 23:59:59 CLS Outpatient MARK STANLEY MD [facility] PREOP COLONOSCOPY/EGD [id number] 06/30/2016 12:48:00 06/30/2016 23:59:59 CLS Outpatient HEATHER ROSSI DO [facility] RAD RT SHOULDER PAIN [id number] 05/30/2016 12:59:00 05/30/2016 15:27:00 DIS Emergency FRANCY VERDIN DO [facility] ER RIGHT SHOULDER PAIN [id number] 03/09/2016 12:28:00 04/04/2016 11:55:00 DIS Outpatient HEATHER ROSSI DO [facility] REHAB SHOULDER PAIN [id number] 02/15/2016 13:46:00 02/15/2016 23:59:59 CLS Outpatient CADEN QUICK MD [facility] CARD DYSPNEA ON EXERTION,HTN, HLP,CAROTID ARTERY BRUIT [id number] 01/27/2016 11:28:00 01/27/2016 23:59:59 CLS Outpatient HEATHER ROSSI DO [facility] RAD RIGHT LEG PAIN AND SWELLING [id number] 12/25/2015 16:17:00 12/29/2015 11:45:00 DIS Inpatient LEANDRO FIGUEROA MD [facility] 4TH ACUTE GASTROINTERITIS, DEHYDRATION [id number] 12/08/2015 05:46:00 12/10/2015 11:00:00 DIS Inpatient ENID HEATHER DRUMMOND [facility] 4TH RIGHT SHOULDER OSTEOARTHRITIS [id number] 11/25/2015 10:04:00 11/25/2015 23:59:59 CLS Outpatient ENID HEATHER DRUMMOND [facility] PREOP RIGHT SHOULDER OSTEOARTHRITIS [id number] 11/17/2015 17:35:00 11/17/2015 19:14:00 DIS Emergency AIRAM MARVIN MD [facility] ER RT ARM PAIN,FOOT PAIN [id number] 10/21/2015 14:49:00 10/21/2015 18:54:00 DIS Emergency MATT HIDALGO MD [facility] ER POSS CVA [id number] 10/06/2015 09:33:00 10/06/2015 23:59:59 CLS Outpatient HEATHER ROSSI DO [facility] RAD RTC TEAR RT SHOULDER [id number] 10/01/2015 06:51:00 10/01/2015 23:59:59 CLS Outpatient LEANDRO FIGUEROA MD [facility] RAD BACK PAIN POST FALL [id number] 09/11/2015 13:44:00 09/11/2015 23:59:59 CLS Outpatient STACY LOWE [facility] RAD THORACIC AND LUMBAR BACK PAIN [id number] 09/11/2015 13:37:00 09/11/2015 23:59:59 CLS Outpatient BILLY CARO APRN [facility] RT SOB [id number] 08/04/2015 14:51:00 08/05/2015 17:43:00 DIS Inpatient ELIO LEA DO [facility] ICU HEAD INJURY W/ CONCUSSION INTRACTABLE NAUSEA [id number] 04/28/2015 12:39:00 05/11/2015 11:47:00 DIS Outpatient ENID HEATHER [facility] REHAB S/P L TOTAL SHOULDER [id number] 04/27/2015 09:47:00 04/27/2015 23:59:59 CLS Outpatient LEANDRO FIGUEROA MD [facility] RAD SCREENING [id number] 10/14/2014 12:52:00 10/14/2014 16:09:00 DIS Emergency FRANCY VERDIN DO [facility] ER POSSIBLE STROKE [id number] 08/11/2014 09:44:00 09/16/2014 15:11:00 DIS Outpatient STACY LOWE [facility] REHAB R ANKLE AND BACK PAIN [id number] 08/06/2014 07:52:00 08/06/2014 12:05:00 DIS Outpatient LADONNA GALLARDO MD [facility] SDC ABD PAIN RIGHT LOWER QUADRANT [id number] 07/31/2014 07:22:00 07/31/2014 23:59:59 CLS Outpatient LADONNA GALLARDO MD [facility] PREOP ABD PAIN RIGHT LOWER QUADRANT [id number] 05/09/2014 11:01:00 05/09/2014 23:59:59 CLS Outpatient STACY LOWE [facility] RAD BACK PAIN,R ANKLE PAIN [id number] 04/17/2014 14:28:00 04/17/2014 23:59:59 CLS Outpatient STACY LOWE [facility] RAD SCREENING [id number] 04/11/2014 17:46:00 04/11/2014 20:21:00 DIS Emergency FRANCY VERDIN DO [facility] ER FELL 04/09/14 [id number] 03/13/2014 13:52:00 03/15/2014 12:00:00 DIS Inpatient ANOOP MIRANDA DO [facility] CSD CHEST PAIN [id number] 02/11/2014 13:48:00 02/11/2014 23:59:59 CLS Outpatient [id number] 12/19/2013 13:10:00 12/19/2013 23:59:59 CLS Outpatient [id number] 08/09/2013 11:36:00 08/09/2013 23:59:59 CLS Outpatient ANOOP MIRANDA DO [facility] RAD HX OF R ANKLE FX,NAUN REMOVAL [id number] 07/01/2013 05:27:00 07/01/2013 09:10:00 DIS Emergency MATT HIDALGO MD [facility] ER FALL [id number] 04/22/2013 12:55:00 05/01/2013 14:42:00 DIS Outpatient KEV PEREZ [facility] REHAB L SHOULDER IMPINGEMENT/ R ELBOW LATERAL EPICONDYLIT [id number] 03/19/2013 12:02:00 03/19/2013 23:59:59 CLS Outpatient CADEN QUICK MD [facility] RAD CP,DYSPNEA [id number] 03/13/2013 13:10:00 03/13/2013 23:59:59 CLS Outpatient CADEN QUICK MD [facility] CARD CP,DYSPNEA [id number] 02/27/2013 14:40:00 02/27/2013 23:59:59 CLS Outpatient ARETHA ARZATE [facility] RAD SCREENING [id number] 02/18/2015 09:30:00 Document Registration [id number] 02/18/2015 09:30:00 Document Registration [id number] 12/31/2014 09:04:00 Document Registration [id number] 12/15/2014 15:26:00 Document Registration [id number] 12/19/2012 12:07:00 Document Registration [id number] 12/05/2012 00:17:00 Document Registration [id number] 09/15/2012 10:56:00 Document Registration [id number] 01/18/2012 11:37:00 Document Registration [id number] 11/01/2011 11:28:00 Document Registration [id number] 10/20/2011 15:54:00 Document Registration [id number] 09/05/2011 10:22:00 Document Registration [id number] 07/06/2011 19:52:00 Document Registration [id number] 06/08/2011 15:24:00 Document Registration [id number] 03/27/2011 15:09:00 Document Registration [id number] 03/23/2011 16:19:00 Document Registration [id number] 12/22/2010 09:11:00 Document Registration [id number] 09/01/2010 10:32:00 Document Registration [id number] 05/03/2010 15:07:00 Document Registration [id number] 04/21/2010 14:07:00 Document Registration [id number] 08/04/2015 10:42:13 ACT Document Registration [id number] 12/19/2018 09:40:00 12/19/2018 23:59:59 [facility] Suhail CANO MD, NEERU [facility] [id number] 08/15/2018 11:50:00 Document Registration [id number] 05/04/2018 10:20:00 Document Registration [id number] 04/05/2018 09:20:00 Document Registration
[2018-12-23] MEDS: inSUlin ASPART (NovoLOG) 1 UNIT/0.01 ML (CHARGE PER UNIT) SC SCH ×2 (17:37→21:15)
[2018-12-23] MEDS: VANCOMYCIN ORAL 250 MG/5 ML 120 ML PO SCH ×2 (17:53)
[2018-12-23 19:39] VITALS: BP 129/77
[2018-12-23] MEDS: ONDANSETRON 4 MG/2 ML (SDV) Z0FRAN IV PRN (19:47)
[2018-12-23] MEDS: morphine ER 30 MG (MS CONTIN) TAB PO SCH (20:29)
[2018-12-23] MEDS ORDERED: PROMETHAZINE INJ 25 MG/ML (PHENERGAN) AMP IM/IV PRN (21:30)
[2018-12-23] MEDS ORDERED: D5 NS 1000 ML IV SOLUTION 1,000 ML IV ONE (21:31)
[2018-12-23] MEDS ORDERED: PROMETHAZINE INJ 25 MG/ML (PHENERGAN) AMP ONE (21:32)
[2018-12-23] MEDS: D5 NS 1000 ML IV SOLUTION 1,000 ML IV SCH (21:36)
[2018-12-23] MEDS ORDERED: HYDROmorphone 2 MG/ML VIAL (DILAUDID) IV ONE (22:15)
[2018-12-23] MEDS ORDERED: HYDROmorphone 2 MG/ML VIAL (DILAUDID) IV PRN (22:15)
[2018-12-24] VITALS (7 sets, daily range): BP systolic 112–142; BP diastolic 65–87
[2018-12-24] MEDS: VANCOMYCIN ORAL 250 MG/5 ML 120 ML PO SCH ×4 (00:58→06:17)
--- NOTE | 2018-12-24 02:43 | NUR ---
1939 PT SITTING UP IN BED-VOMITING YELLOW & WHITE EMESIS, PT STATES SHE IS HAVING ABD PAIN AND IS ANXIOUS 1945-PT GIVEN PRN ZOFRAN 2029-PT VOMITING AGAIN CLEAR WITH WHITE PARTICLES, PT YELLING OUT THAT HER ABD HURTS 2049-PT BLOOD SUGAR 63 2099-PT YELLING OUT THAT SHE IS HAVING ABD PAIN 2119-PT VOMITING AGAIN 2131-THIS RN CALLED DR. ZUNIGA TO REPORT PT VOMITING, BS, ABD NEW ORDERS RECEIVED & READ BACK 2150-PHENERGAN GIVEN FOR PT VOMITING 2214-THIS RN CONSULTED DR. DICKENS PRN ORDER FOR DILAUDID X1 DOSE-THIS RN WAS INSTRUCTED TO SEE IF THE PHENERGAN DOES NOT HELP, THEN ADMINISTER 2239-PT RESTING IN BED, EYES CLOSED, RESPIRATIONS EVEN NOT LABORED
--- NOTE | 2018-12-24 03:08 | NUR ---
3206-THIS RN SPOKE WITH DR. DICKENS ABOUT PT HAVING AN ALLERGY TO NUBAIN/NALBUPHINE BC UPON ORDERING THE DILAUDID X1 DOSE THIS ALLERGY FLAGGED. THIS RN WAS INFORMED THIS ORDER WAS STILL STANDING, THIS PT SHOULD NOT HAVE ANY ISSUES BC OF THE CURRENT PAIN MEDICATIONS SHE IS CURRENTLY TAKING, AND DR. DICKENS STILL AGREED TO THIS ORDER.
[2018-12-24] MEDS: ONDANSETRON 4 MG/2 ML (SDV) Z0FRAN IV PRN (04:21)
[2018-12-24] MEDS: inSUlin ASPART (NovoLOG) 1 UNIT/0.01 ML (CHARGE PER UNIT) SC SCH ×4 (05:48→20:35)
[2018-12-24] MEDS: morphine ER 30 MG (MS CONTIN) TAB PO SCH ×2 (08:21→20:38)
[2018-12-24] MEDS: ENOXAPARIN 40 MG/0.4 ML (LOVENOX) SYR SC SCH (10:28)
[2018-12-24] MEDS: CIPROFLOXACIN IV 400MG/200ML 200 ML IV SCH ×2 (10:28→20:38)
--- NOTE | 2018-12-24 10:55 | NUR ---
PATIENT WAS RECENTLY ADMITTED. I REVIEWED MED REC IT WAS REPORTED UPON THAT ADMISSION AND DISCHARGE. I COMPARED IT WITH THE EXT MED HX WELL. QUETIAPINE WAS STOPPED AT HER LAST DISCHARGE.
--- NOTE | 2018-12-24 11:33 | History & Physicial (CHS) ---
LEON MARQUES MED STUDENT 12/24/18 1133: HPI History of Present Illness: The patient was brought to the [facility] ER via EMS yesterday for nausea and epigastric abdominal pain for 3 days. The patient is confused and the history is inconsistent. She states that she is still having the pain and describes it as diffuse, intermittent, crampy pain. She is also complaining of sharp pain in her back which locates in the midline of her middle thoracic vertebrae. She rates the pain as 9/10. She admits to previous trauma to the back but could not remember when. She states that she is also experiencing shortness of breath with exertion. She denies any recent changes in bowel or bladder. The review of systems was otherwise unremarkable. Source: patient Time Seen by Provider: 07:30 Attending Physician Kathia Ellis MD PCP Bernardo Larios MD Consult Date of Admission Dec 23, 2018 at 12:45 Home Medications Home Medications Reviewed patient Home Medication Reconciliation performed by pharmacy medication reconciliations hemodialysis technician and/or nursing. Patients Allergies have been reviewed. Allergies Coded Allergies: Penicillins (Unverified Allergy, Mild, PT DOES NOT REMEMBER RXN > 30 YRS, 04/21/18) Pt has received Cefepime & Ceftriaxone w/o issue nalbuphine (Unverified Allergy, Mild, Pt has received Lortab & Morphine in the past w/o issue, 11/21/18) KUX-Qwiesa-Vrbxhc Hx Patient Social History Marrital Status: Alcohol Use: Denies Use Recreational Drug Use: No Smoking Status: Never a Smoker Former smoker/When Quit: Aug 15, 1991 Recent Foreign Travel: No Contact w/other who traveled: No Recent Hopitalizations: No Recent Infectious Disease Expo: No Immunizations Up To Date Tetanus Booster (TDap): More than 5yrs Date of Pneumonia Vaccine: Jun 23, 2017 Date of Influenza Vaccine: Aug 02, 2018 Past Medical History PMHx: Chronic back pain on chronic opiates Sees Dr. Hernandez for heart GERD HLD Anxiety/Depression PSurgHx: Hysterectomy Spinal stimulator Bilateral shoulder replacements Family Medical History Significant Family History: Heart Disease, Cancer, Hypertension, Psychiatric Problems, Vascular Disease Family History: Alzheimer's disease (MOTHER) Cancer (FATHER LIVER CA SISTER CA) Cardiovascular disease G8 SISTER Dementia FH: lupus (SISTER) Family history: Cardiovascular disease Family history: Diabetes mellitus Family history: Hypertension Heart disease Review of Systems (CHC) Constitutional: chills, malaise, weakness EENTM: no symptoms reported Respiratory: short of breath Cardiovascular: no symptoms reported Gastrointestinal: LUQ, LLQ Genitourinary: no symptoms reported Musculoskeletal: back pain Skin: no symptoms reported Psychiatric/Neurological: No Symptoms Reported Reviewed Test Results Reviewed Test Results Lab Vital Signs 12/24/18 09:00 Temp 97.9 Pulse 79 Resp 18 B/P (MAP) 138/72 (94) Pulse Ox 96 O2 Delivery Room Air Physical Exam-([facility]) Physical Exam Vital Signs VS - Last 72 Hours, by Label 12/23/18 12/23/18 12/23/18 12/23/18 10:57 12:54 13:10 13:10 Temp 100.0 98.0 98.0 Pulse 110 80 100 100 Resp 24 18 18 18 B/P (MAP) 136/110 (119) 145/90 (108) 158/99 (118) 158/99 Pulse Ox 96 98 98 98 O2 Delivery Room Air Room Air Room Air Room Air 12/23/18 12/23/18 12/23/18 12/23/18 14:23 16:00 19:39 20:00 Temp 98.1 98.0 Pulse 120 91 Resp 18 18 B/P (MAP) 145/95 (112) 129/77 (94) Pulse Ox 98 97 98 O2 Delivery Room Air Room Air Room Air Room Air 12/24/18 12/24/18 12/24/18 12/24/18 00:00 04:27 08:00 09:00 Temp 98.0 97.3 97.9 Pulse 90 78 79 Resp 18 20 18 B/P (MAP) 140/70 (93) 142/87 (105) 138/72 (94) Pulse Ox 96 95 96 O2 Delivery Room Air Room Air Room Air Room Air Capillary Refill : Less Than 3 Seconds General Appearance: no apparent distress Respiratory: chest non-tender, lungs clear, no respiratory distress Cardiovascular: regular rate, rhythm, no edema, no murmur Gastrointestinal: normal bowel sounds, soft, tenderness Skin: normal color, warm/dry Assessment/Plan Assessment/Plan Admission Status: Observation Assessment & Plan Assessment: 1) Enterocolitis 2) UTI 3) Confusion/Dementia/Delirium Plan: 1) Ciprofloxacin 2) Continue to monitor 3) Social service referral for possible assisted living Clinical Quality Measures DVT/VTE Risk/Contraindication: Risk Factor Score Per Nursin RFS Level Per Nursing on Admit: 4+=Very High KATHIA ELLIS MD 12/24/18 1514: HPI History of Present Illness: Time Seen by Provider: 10:08 Home Medications Allergies Coded Allergies: Penicillins (Unverified Allergy, Mild, PT DOES NOT REMEMBER RXN > 30 YRS, 04/21/18) Pt has received Cefepime & Ceftriaxone w/o issue nalbuphine (Unverified Allergy, Mild, Pt has received Lortab & Morphine in the past w/o issue, 11/21/18) [facility]-Krwisr-Dhdajd Hx Family Medical History Family History: Alzheimer's disease (MOTHER) Cancer (FATHER LIVER CA SISTER CA) Cardiovascular disease G8 SISTER Dementia FH: lupus (SISTER) Family history: Cardiovascular disease Family history: Diabetes mellitus Family history: Hypertension Heart disease Reviewed Test Results Reviewed Test Results Lab Laboratory Tests Test 12/23/18 10:59 12/23/18 11:08 12/23/18 17:06 12/23/18 20:50 Range/Units White Blood Count 10.2 4.3-11.0 10^3/uL Red Blood Count 4.51 4.35-5.85 10^6/uL Hemoglobin 13.7 11.5-16.0 G/DL Hematocrit 41 35-52 % Mean Corpuscular Volume 91 80-99 FL Mean Corpuscular Hemoglobin 30 25-34 PG Mean Corpuscular Hemoglobin Concent 33 32-36 G/DL Red Cell Distribution Width 15.9 H 10.0-14.5 % Platelet Count 380 130-400 10^3/uL Mean Platelet Volume 9.4 7.4-10.4 FL Neutrophils (%) (Auto) 77 H 42-75 % Lymphocytes (%) (Auto) 15 12-44 % Monocytes (%) (Auto) 8 0-12 % Eosinophils (%) (Auto) 0 0-10 % Basophils (%) (Auto) 0 0-10 % Neutrophils # (Auto) 7.9 H 1.8-7.8 X 10^3 Lymphocytes # (Auto) 1.6 1.0-4.0 X 10^3 Monocytes # (Auto) 0.8 0.0-1.0 X 10^3 Eosinophils # (Auto) 0.0 0.0-0.3 10^3/uL Basophils # (Auto) 0.0 0.0-0.1 10^3/uL Sodium Level 136 135-145 MMOL/L Potassium Level 3.9 3.6-5.0 MMOL/L Chloride Level 103 98-107 MMOL/L Carbon Dioxide Level 19 L 21-32 MMOL/L Anion Gap 14 5-14 MMOL/L Blood Urea Nitrogen 9 7-18 MG/DL Creatinine 0.68 0.60-1.30 MG/DL Estimat Glomerular Filtration Rate > 60 BUN/Creatinine Ratio 13 Glucose Level 84 70-105 MG/DL Lactic Acid Level 1.03 0.50-2.00 MMOL/L Calcium Level 8.7 8.5-10.1 MG/DL Corrected Calcium 9.5 8.5-10.1 MG/DL Total Bilirubin 1.1 H 0.1-1.0 MG/DL Aspartate Amino Transf (AST/SGOT) 35 H 5-34 U/L Alanine Aminotransferase (ALT/SGPT) 21 0-55 U/L Alkaline Phosphatase 170 H 40-136 U/L Total Protein 5.9 L 6.4-8.2 GM/DL Albumin 3.0 L 3.2-4.5 GM/DL Lipase 11 8-78 U/L Urine Color ASAF H Urine Clarity SLIGHTLY CLOUDY Urine pH 7 5-9 Urine Specific [place] 1.015 L 1.016-1.022 Urine Protein 1+ H NEGATIVE Urine Glucose (UA) NEGATIVE NEGATIVE Urine Ketones 4+ H NEGATIVE Urine Nitrite NEGATIVE NEGATIVE Urine Bilirubin 1+ H NEGATIVE Urine Urobilinogen 8 H NORMAL MG/DL Urine Leukocyte Esterase 1+ H NEGATIVE Urine RBC (Auto) 1+ H NEGATIVE Urine RBC 5-10 H /HPF Urine WBC 2-5 /HPF Urine Squamous Epithelial Cells 2-5 /HPF Urine Crystals NONE /LPF Urine Bacteria TRACE /HPF Urine Casts NONE /LPF Urine Mucus LARGE H /LPF Urine Culture Indicated YES Glucometer 71 63 L 70-110 MG/DL Test 12/24/18 05:32 12/24/18 12:06 Range/Units Glucometer 83 113 H 70-110 MG/DL Radiology 12/23 CT abdomen/pelvis: IMPRESSION: 1. Postsurgical changes from gastric bypass. No evidence of bowel obstruction. 2. There is long segment spasm of the colon with very little stool or gas. Could not exclude colitis. Clinical correlation. 12/23 CT head: IMPRESSION: 1. Moderate global volume loss without CT evidence of an acute intracranial abnormality. 2. No facial fracture evident. No blood evident within the paranasal sinuses. The intraorbital contents appear unremarkable. 3/ CXR no acute acute process Physical Exam-([facility]) Physical Exam General Appearance: WD/WN, no apparent distress Respiratory: no respiratory distress, rales (greatest at left base) Cardiovascular: regular rate, rhythm, no murmur Gastrointestinal: normal bowel sounds, soft, no organomegaly, tenderness ( Right side) Back: vertebral tenderness (T12) Extremities: no pedal edema Neurologic/Psychiatric: alert, normal mood/affect; No motor weakness (5/5 strength in legs); other (oriented to self and location, but not date) Skin: normal color, warm/dry Assessment/Plan Assessment/Plan Admission Dx Colitis Admission Status: Inpatient Order (span 2 midnights) Reason for Inpatient Admission: Vomiting and diarrhea with severe abdominal pain, needing IV antibiotics and enti-emetics (1) Colitis Status: Acute Assessment & Plan: Concern for c diff colitis due to recent abx use, but C diff toxin negative. D/C vancomycin and start cipro/flagyl. Promethazine prn nausea, hold ondansetron due to interaction with cipro. (2) UTI (urinary tract infection) Status: Acute Assessment & Plan: Possible, based on UA and symptoms, culture pending. Covered with abx for colitis. (3) Fall Status: Acute Assessment & Plan: She does not recall injury but has bruise to eye, CT head with no acute changes. PT for eval, normally walks with canes. (4) Elevated AST (SGOT) Status: Acute Assessment & Plan: Unclear etiology, possibly due to colitis, repeat labs in the am, check hepatitis panel. (5) Alkaline phosphatase elevation Status: Acute (6) Chronic pain Status: Chronic Assessment & Plan: Continue home medications, consider taper down on opiates given her apparent difficulty in self-care. Qualifiers: Qualified Codes: G89.4 - Chronic pain syndrome (7) Thoracic back pain Status: Acute Assessment & Plan: Acute on chronic pain with point tenderness, will obtain xray. Qualifiers: (8) Discharge planning issues Status: Acute Assessment & Plan: Appears to have difficulty managing at home, social service worker consulted. (9) DVT prophylaxis Status: Acute Assessment & Plan: Enoxaparin Supervisory-Addendum Brief Supervisory Addendum Pt seen and evaluated by me along with MS3 Leon Marques, Agree with documentation except as mine differs. See problem list for my assessment and plan. LEON MARQUES MED STUDENT Dec 24, 2018 11:33 KATHIA ELLIS MD Dec 24, 2018 15:14
--- NOTE | 2018-12-24 12:18 | Consultation ---
History of Present Illness History of Present Illness Patient Consulted On(carolann/time) 12/24/18 12:13 Time Seen by Provider: 09:19 History of Present Illness Surgery asked to consult regarding Colitis and diarrhea. HPI per ED: To ER per EMS from home with reports of nausea and epigastric abdominal pain diarrhea for about 3 days. She was in the hospital in November for sepsis/urinary tract infection. Timing/Duration: 2-3 Days Severity/Quality: Cramping Location: Epigastric, Generalized Abdomen Radiation: No Radiation Activities at Onset: None Associated Symptoms: No Fever/Chills; Nausea/Vomiting When I spoke to pt this morning she stil complained of abdominal pain, maybe a little better. She states she has been having loose watery diarrhea; 3-4 times per day. She thinks she had a colonoscopy recently and doesn't think they found anything. CT was read as Colitis; with area of descending colon/ sigmoid of spastic colon - can't tell if its inflammation. Allergies and Home Medications Allergies Coded Allergies: Penicillins (Unverified Allergy, Mild, PT DOES NOT REMEMBER RXN > 30 YRS, 04/21/18) Pt has received Cefepime & Ceftriaxone w/o issue nalbuphine (Unverified Allergy, Mild, Pt has received Lortab & Morphine in the past w/o issue, 11/21/18) Home Medications Albuterol Sulfate 18 Gm Hfa.aer.ad, 2 PUFF INH QID PRN for WHEEZING, (Reported) Diclofenac Sodium 75 Mg Tablet.dr, 75 MG PO BID, (Reported) Docusate Sodium 100 Mg Capsule, 100 MG PO DAILY, (Reported) Duloxetine HCl 60 Mg Capsule.dr, 60 MG PO 0800,1500, (Reported) Ezetimibe 10 Mg Tablet, 10 MG PO DAILY, (Reported) Fluticasone/Vilanterol 1 Each Blst.w.dev, 1 PUFF INH DAILY, (Reported) Furosemide 40 Mg Tablet, 40 MG PO DAILY, (Reported) Gabapentin 600 Mg Tablet, 600 MG PO TID, (Reported) Morphine Sulfate 30 Mg Tablet.er, 30 MG PO Q12H, (Reported) Ondansetron HCl 4 Mg Tablet, 4 MG PO Q8H PRN for NAUSEA/VOMITING-1ST LINE, ( Reported) Oxycodone HCl/Acetaminophen 1 Each Tablet, 1 TAB PO TID PRN for PAIN- BREAKTHROUGH, (Reported) Pantoprazole Sodium 40 Mg Tablet.dr, 40 MG PO 1500, (Reported) Potassium Chloride 20 Meq Tab.er.prt, 20 MEQ PO DAILY, (Reported) Rosuvastatin Calcium 10 Mg Tablet, 10 MG PO 1500, (Reported) Sucralfate 1 Gm Tablet, 1 GM PO ACHS, (Reported) Tiotropium [place] 1 Inh Aerp, 1 CAP INH 1500, (Reported) Vitamin B Complex 1 Each Tablet, 1 TAB PO DAILY, (Reported) Vitamin E Acetate 400 Unit Capsule, 400 UNIT PO DAILY, (Reported) Vortioxetine Hydrobromide 20 Mg Tablet, 20 MG PO DAILY, (Reported) Patient Home Medication List Home Medication List Reviewed: Yes Past Gcsropl-Byinxj-Dmeeck Hx Patient Social History Alcohol Use: Denies Use Recreational Drug Use: No Smoking Status: Never a Smoker Former Smoker, Quit: Aug 05, 1992 Recent Foreign Travel: No Contact w/Someone Who Travel: No Recent Infectious Disease Expo: No Recent Hopitalizations: No Immunizations Up To Date Tetanus Booster (TDap): More than 5yrs PED Vaccines UTD: No Date of Pneumonia Vaccine: Jun 23, 2017 Date of Influenza Vaccine: Aug 02, 2018 Seasonal Allergies Seasonal Allergies: Yes Surgeries History of Surgeries: Yes (RIGHT ANKLE, BILAT TOTAL KNEE, GASTRIC BYPASS, L ROTATOR CUFF REPAIR 01/04,) Surgeries: Gallbladder, Hysterectomy, Orthopedic Respiratory History of Respiratory Disorde: Yes ( mild sleep apnea-) Respiratory Disorders: Sleep Apnea, COPD Cardiovascular History of Cardiac Disorders: Yes Cardiac Disorders: High Cholesterol Neurological History of Neurological Disord: Yes (fell from a three story building in concussion, concusion from fall) Neurological Disorders: TIA Reproductive System Hx Reproductive Disorders: No Female Reproductive Disorders: Menstrual 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 Genitourinary History of Genitourinary Disor: No Gastrointestinal History of Gastrointestinal Di: Yes (hepatitis in 1979 not sure which type) Gastrointestinal Disorders: Colitis, Gastroesophageal Reflux, Chronic Constipation, Hepatitis Musculoskeletal History of Musculoskeletal Dis: Yes (, broken back ) Musculoskeletal Disorders: Arthritis, Back Injury, Chronic Back Pain Endocrine History of Endocrine Disorders: No Endocrine Disorders: Diabetes, Non-Insulin dep HEENT History of HEENT Disorders: Yes HEENT Disorders: Cataract Loss of Vision: Denies Hearing Impairment: Hard of Hearing Cancer History of Cancer: Yes (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) Psychosocial History of Psychiatric Problem: Yes Behavioral Health Disorders: Anxiety, Depression Integumentary History of Skin or Integumenta: No Blood Transfusions History of Blood Disorders: Yes (ANEMIA) Adverse Reaction to a Blood Tr: No Family Medical History Significant Family History: Heart Disease, Cancer, Hypertension, Psychiatric Problems, Vascular Disease Family Medial History: Alzheimer's disease (MOTHER) Cancer (FATHER LIVER CA SISTER CA) Cardiovascular disease G8 SISTER Dementia FH: lupus (SISTER) Family history: Cardiovascular disease Family history: Diabetes mellitus Family history: Hypertension Heart disease Review of Systems-General Constitutional: chills, diaphoresis, malaise, weakness EENTM: No hearing loss, No blurred vision, No epistaxis, No throat swelling Respiratory: No cough, No dyspnea on exertion, No hemoptysis Cardiovascular: No chest pain, No palpitations Gastrointestinal: abdominal pain, diarrhea; No jaundice, No melena; nausea Genitourinary: No dysuria, No frequency, No hematuria Musculoskeletal: joint pain, joint swelling, muscle stiffness Skin: No change in color, No change in hair/nails Psychiatric/Neurological: Anxiety, Depressed Other pt denies any abnormal bruising or bleeding Physical Exam-General Problems Physical Exam Vital Signs Vital Signs - First Documented 12/23/18 10:57 Temp 100.0 Pulse 110 Resp 24 B/P (MAP) 136/110 (119) Pulse Ox 96 O2 Delivery Room Air Capillary Refill : Less Than 3 Seconds General Appearance: WD/WN, mild distress Eyes: Bilateral Eye PERRL, Bilateral Eye EOMI HEENT: pharynx normal; No scleral icterus (R), No scleral icterus (L) Neck: supple, normal inspection Respiratory: chest non-tender, lungs clear, normal breath sounds, no respiratory distress, no accessory muscle use Cardiovascular: regular rate, rhythm, no edema, no murmur Gastrointestinal: normal bowel sounds, soft; No guarding, No rebound; tenderness Extremities: no pedal edema, no calf tenderness, normal capillary refill 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 difficile GDH Antigen & Toxins - Final, Complete Assessment/Plan Assessment/Plan Assessment/Plan Colitis Diarrhea Pt's abdomen is soft, C. Diff was negative but am I not sure she had other organisms tested for. CT was read as colitis, but could just be non-dilated intestine. Non-surgical abdomen at this time. I would keep pt NPO, IV fluids, pain meds. She does not have elevated WBC, so do not think she has infection (or at least bad one). Will follow along and see how abdominal pain develops. May need colonoscopy as inpt. Clinical Quality Measures DVT/VTE Risk/Contraindication: Risk Factor Score Per Nursin RFS Level Per Nursing on Admit: 4+=Very High MICK DICKENS DO Dec 24, 2018 12:18
[2018-12-24] MEDS ORDERED: RT-ALBUTEROL SULF 2.5 MG/3 ML PRE-MIX VIAL INH PRN (13:17)
[2018-12-24] MEDS: metroNIDAZOLE 500MG/100ML IVPB 100 ML IV SCH ×2 (13:31→22:09)
[2018-12-24] MEDS: GABAPENTIN 600 MG (NEURONTIN) TAB PO SCH ×2 (13:32→20:39)
[2018-12-24] MEDS: PANTOPRAZOLE 40 MG (PROTONIX) TAB PO SCH (13:32)
[2018-12-24] MEDS: D5 NS 1000 ML IV SOLUTION 1,000 ML IV SCH (13:32)
--- NOTE | 2018-12-24 14:15 | NUR ---
Pastoral care visit, provided support and prayer.
--- NOTE | 2018-12-24 14:27 | NUR ---
CM/SS spoke with the patient for SS consult. Patient stated that her preference would be for [facility]. Referral packet was sent to [facility]
[2018-12-24] MEDS: oxyCODONE/APAP 10/325MG (PERCOCET 10) TABLET PO PRN (16:02)
[2018-12-24] MEDS: SUCRALFATE 1 GM (CARAFATE) TAB PO SCH ×2 (16:02→20:38)
[2018-12-24] MEDS: ETODOLAC 300 MG (LODINE) CAP PO SCH (20:42)
[2018-12-25 04:40] VITALS: BP 109/55
[2018-12-25] MEDS: inSUlin ASPART (NovoLOG) 1 UNIT/0.01 ML (CHARGE PER UNIT) SC SCH ×4 (05:28→21:13)
[2018-12-25] MEDS: metroNIDAZOLE 500MG/100ML IVPB 100 ML IV SCH ×3 (05:34→22:47)
[2018-12-25] MEDS: SUCRALFATE 1 GM (CARAFATE) TAB PO SCH ×4 (05:34→21:15)
[2018-12-25 06:30] LABS: HEMOGLOBIN 11.3 G/DL (11.5-16.0); MEAN PLATELET VOLUME 9.4 FL (7.4-10.4); RED CELL DISTRIBUTION WIDTH 16.8 % (10.0-14.5); WHITE BLOOD COUNT 7.6 10^3/uL (4.3-11.0)
[2018-12-25 06:47] LABS: ALANINE AMINOTRANSFERASE 12 U/L (0-55); ALBUMIN 2.6 GM/DL (3.2-4.5); ALKALINE PHOSPHATASE 137 U/L (40-136); BILIRUBIN,TOTAL 0.3 MG/DL (0.1-1.0); BUN/CREATININE RATIO 8; CALCIUM 8.3 MG/DL (8.5-10.1); CARBON DIOXIDE 22 MMOL/L (21-32); CHLORIDE 111 MMOL/L (98-107); CREATININE SERUM 0.73 MG/DL (0.60-1.30); GFR ESTIMATED > 60; GLUCOSE 87 MG/DL (70-105); POTASSIUM 3.1 MMOL/L (3.6-5.0); SODIUM 141 MMOL/L (135-145); TOTAL PROTEIN 4.8 GM/DL (6.4-8.2)
[2018-12-25 08:10] VITALS: BP 118/60
[2018-12-25] MEDS: GABAPENTIN 600 MG (NEURONTIN) TAB PO SCH ×3 (08:30→21:15)
[2018-12-25] MEDS: CIPROFLOXACIN IV 400MG/200ML 200 ML IV SCH ×2 (08:30→21:15)
[2018-12-25] MEDS: FUROSEMIDE 40 MG (LASIX) TAB PO SCH (08:30)
[2018-12-25] MEDS: morphine ER 30 MG (MS CONTIN) TAB PO SCH ×2 (08:30→21:15)
[2018-12-25] MEDS ORDERED: METR500T PO (08:48)
[2018-12-25] MEDS ORDERED: DULO60CA58 PO (08:48)
[2018-12-25] MEDS ORDERED: CIPR-225 PO (08:48)
[2018-12-25] MEDS ORDERED: NON-FORMULARY MEDICATION 1 EA EA (Vortioxetine Hydrobromide (Trintellix) 20 MG) PO SCH (09:00)
[2018-12-25] MEDS: ETODOLAC 300 MG (LODINE) CAP PO SCH ×2 (09:34→21:15)
[2018-12-25] MEDS: oxyCODONE/APAP 10/325MG (PERCOCET 10) TABLET PO PRN ×2 (09:34→16:48)
[2018-12-25] MEDS: POTASSIUM CL 10MEQ/50ML IVPB 50 ML IV SCH ×3 (09:54→12:23)
--- NOTE | 2018-12-25 09:56 | Progress Note ---
Subjective Time Seen by a Provider: 09:22 Subjective/Events-last exam Pt seen and examined, states she has not had any more diarrhea. She did have an episode of emesis when she tried to eat nathan this am; but she thinks it was because she ate too fast. She denies abdominal pain, her only complaint is of shoulder pain. Review of Systems General: No Chills, No Night Sweats Pulmonary: No Dyspnea, No Cough Cardiovascular: No: Chest Pain, Palpitations Gastrointestinal: Nausea, Vomiting; No: Abdominal Pain Focused Exam Lactate Level 12/23/18 10:59: Lactic Acid Level 1.03 Objective Exam Vital Signs Date Time Temp Pulse Resp B/P (MAP) Pulse Ox O2 Delivery O2 Flow Rate FiO2 12/25/18 08:10 98.5 80 16 118/60 (79) 97 Room Air 12/25/18 04:40 98.6 77 17 109/55 (73) 94 Room Air 12/24/18 23:50 98.8 82 18 132/69 (90) 95 Room Air 12/24/18 20:00 95 Room Air 12/24/18 19:57 98.1 79 16 112/68 (83) 95 Room Air 12/24/18 16:03 98.5 91 18 124/81 (95) 95 Room Air 12/24/18 12:00 98.7 86 18 130/65 (86) 94 Room Air I & O 12/25/18 07:00 Intake Total 2700 ml Output Total 1150 ml Balance 1550 ml Capillary Refill : Less Than 3 Seconds General Appearance: No Apparent Distress, Chronically ill HEENT: Pharynx Normal, Moist Mucous Membranes; No Scleral Icterus (L), No Scleral Icterus (R) Respiratory: Chest Non Tender, No Accessory Muscle Use, No Respiratory Distress Gastrointestinal: normal bowel sounds, soft, no organomegaly, tenderness ( Right side) Results Lab Laboratory Tests 12/24/18 12:06: Glucometer 113H 12/24/18 15:58: Glucometer 70 12/24/18 20:34: Glucometer 93 12/25/18 05:25: Glucometer 98 12/25/18 05:57: White Blood Count 7.6, Red Blood Count 3.74L, Hemoglobin 11.3L, Hematocrit 36, Mean Corpuscular Volume 95, Mean Corpuscular Hemoglobin 30, Mean Corpuscular Hemoglobin Concent 32, Red Cell Distribution Width 16.8H, Platelet Count 310, Mean Platelet Volume 9.4, Sodium Level 141, Potassium Level 3.1L, Chloride Level 111H, Carbon Dioxide Level 22, Anion Gap 8, Blood Urea Nitrogen 6L, Creatinine 0.73, Estimat Glomerular Filtration Rate > 60, BUN/Creatinine Ratio 8 , Glucose Level 87, Calcium Level 8.3L, Corrected Calcium 9.4, Total Bilirubin 0.3, Aspartate Amino Transf (AST/SGOT) 19, Alanine Aminotransferase (ALT/SGPT) 12, Alkaline Phosphatase 137H, Total Protein 4.8L, Albumin 2.6L Microbiology 12/23/18 Blood Culture - Preliminary, Resulted No growth 12/23/18 C. difficile GDH Antigen & Toxins - Final, Complete 12/23/18 Urine Culture - Final, Complete NO GROWTH Assessment/Plan Assessment/Plan Assessment/Plan Colitis Diarrhea Hypokalemia - getting replacement Pt's abdomen is still soft, C. Diff was negative but she is still on IV ABX. I don' t think she had other organisms tested for and now that she does not have diarrhea it might not be necessary. CT was read as colitis, but could just be non-dilated intestine. Non-surgical abdomen at this time. I agree with trying to start diet; she had colonoscopy not too long ago and so probably doesn't need another one unless this "colitis" gets worse. She continues to have normal WBC. Clinical Quality Measures DVT/VTE Risk/Contraindication: Risk Factor Score Per Nursin RFS Level Per Nursing on Admit: 4+=Very High MICK DICKENS DO Dec 25, 2018 09:56
--- NOTE | 2018-12-25 10:00 | Diagnostic Imaging Report ---
INDICATION: Back pain. TECHNIQUE: AP, Lateral imaging of the thoracic spine CORRELATION STUDY: 09/11/2015 FINDINGS: There is rather marked severity S-type thoracolumbar scoliotic curvature present. This has increased from prior study. There is currently approximately 39 degrees of rightward curvature of the lower thoracic spine. Approximately 40 degrees leftward lumbar curvature. Straightening of the normal thoracic kyphotic curvature. The thoracic vertebral body height overall appear to be generally stable. There is presence of cage effusion likely corpectomy changes at approximately the L2 level. The alignment of the cage perhaps slightly more horizontal compared with prior study. Additional hardware more inferiorly present as well. Extensive Surgiclips in right upper quadrant. There has been interval removal of thoracic spine simulator. IMPRESSION: Rather significant S-type thoracolumbar scoliotic curvature. This has increased in severity from prior study. Definitive acute bony abnormality is not suggested. Dictated by: Dictated on workstation # [id number]
[2018-12-25] MEDS: ENOXAPARIN 40 MG/0.4 ML (LOVENOX) SYR SC SCH (11:01)
--- NOTE | 2018-12-25 11:58 | NUR ---
CM/SS [facility] can accept the patient on 12/26/18.
--- NOTE | 2018-12-25 12:14 | Progress Note (SOAP) ---
Subjective Subjective/Events-last exam Afebrile, no acute events. Feeling much better today. Review of Systems Date Seen by Provider: Dec 25, 2018 Time Seen by Provider: 08:16 Focused Exam Lactate Level 12/23/18 10:59: Lactic Acid Level 1.03 Objective Exam Last Set of Vital Signs Vital Signs Date Time Temp Pulse Resp B/P (MAP) Pulse Ox O2 Delivery O2 Flow Rate FiO2 12/25/18 08:10 98.5 80 16 118/60 (79) 97 Room Air Capillary Refill : Less Than 3 Seconds I&O Intake and Output 12/25/18 00:00 Intake Total 2450 ml Output Total 975 ml Balance 1475 ml Intake Oral 850 ml IV Total 1600 ml Output Urine Total 975 ml # Bowel Movements 1 General: Alert, No Acute Distress Lungs: Clear to Auscultation, Normal Air Movement Heart: Regular Rate, No Murmurs Abdomen: Normal Bowel Sounds, Soft, No Tenderness Neuro: Normal Speech Psych/Mental Status: Mood NL Results/Procedures Lab Laboratory Tests 12/24/18 15:58: Glucometer 70 12/24/18 20:34: Glucometer 93 12/25/18 05:25: Glucometer 98 12/25/18 05:57: White Blood Count 7.6, Red Blood Count 3.74L, Hemoglobin 11.3L, Hematocrit 36, Mean Corpuscular Volume 95, Mean Corpuscular Hemoglobin 30, Mean Corpuscular Hemoglobin Concent 32, Red Cell Distribution Width 16.8H, Platelet Count 310, Mean Platelet Volume 9.4, Sodium Level 141, Potassium Level 3.1L, Chloride Level 111H, Carbon Dioxide Level 22, Anion Gap 8, Blood Urea Nitrogen 6L, Creatinine 0.73, Estimat Glomerular Filtration Rate > 60, BUN/Creatinine Ratio 8 , Glucose Level 87, Calcium Level 8.3L, Corrected Calcium 9.4, Total Bilirubin 0.3, Aspartate Amino Transf (AST/SGOT) 19, Alanine Aminotransferase (ALT/SGPT) 12, Alkaline Phosphatase 137H, Total Protein 4.8L, Albumin 2.6L 12/25/18 11:08: Glucometer 108 Microbiology 12/23/18 Blood Culture - Preliminary, Resulted No growth 12/23/18 C. difficile GDH Antigen & Toxins - Final, Complete 12/23/18 Urine Culture - Final, Complete NO GROWTH Radiology 12/23 CT abdomen/pelvis: IMPRESSION: 1. Postsurgical changes from gastric bypass. No evidence of bowel obstruction. 2. There is long segment spasm of the colon with very little stool or gas. Could not exclude colitis. Clinical correlation. 12/23 CT head: IMPRESSION: 1. Moderate global volume loss without CT evidence of an acute intracranial abnormality. 2. No facial fracture evident. No blood evident within the paranasal sinuses. The intraorbital contents appear unremarkable. 12/23 CXR no acute acute process Assessment/Plan Assessment/Plan Assessment & Plan Assessment: 1) Enterocolitis 2) UTI 3) Confusion/Dementia/Delirium Plan: 1) Ciprofloxacin 2) Continue to monitor 3) Social service referral for possible assisted living (1) Colitis Status: Acute Assessment & Plan: Concern for c diff colitis due to recent abx use, but C diff toxin negative. D/C vancomycin and start cipro/flagyl. Promethazine prn nausea, hold ondansetron due to interaction with cipro. (2) UTI (urinary tract infection) Status: Resolved Assessment & Plan: Possible, based on UA and symptoms, culture pending. Covered with abx for colitis. 12/25 culture no growth (3) Fall Status: Acute Assessment & Plan: She does not recall injury but has bruise to eye, CT head with no acute changes. PT for eval, normally walks with canes. 12/25 plan for d/c to SNF- they can accept tomorrow (4) Elevated AST (SGOT) Status: Acute Assessment & Plan: Unclear etiology, possibly due to colitis, repeat labs in the am, check hepatitis panel. 3/ LFTs improving, hep panel pending (5) Alkaline phosphatase elevation Status: Acute (6) Chronic pain Status: Chronic Assessment & Plan: Continue home medications, consider taper down on opiates given her apparent difficulty in self-care. Qualifiers: Qualified Codes: G89.4 - Chronic pain syndrome (7) Thoracic back pain Status: Acute Assessment & Plan: Acute on chronic pain with point tenderness, will obtain xray. 3/ xray prelim read with worsening scoliosis but no fractures noted Qualifiers: (8) Discharge planning issues Status: Acute Assessment & Plan: Appears to have difficulty managing at home, psychosocial rehabilitation counselor consulted. Plan for d/c to SNF 12/26 (9) DVT prophylaxis Status: Acute Assessment & Plan: Enoxaparin Clinical Quality Measures DVT/VTE Risk/Contraindication: Risk Factor Score Per Nursin RFS Level Per Nursing on Admit: 4+=Very High KATHIA ELLIS MD Dec 25, 2018 12:13
[2018-12-25] MEDS: PANTOPRAZOLE 40 MG (PROTONIX) TAB PO SCH (15:41)
[2018-12-25 16:16] VITALS: BP 112/67
[2018-12-25] MEDS: RT-ADVAIR HFA 115/21 MCG PER PUFF IH SCH (16:49)
[2018-12-25] MEDS: UMECLIDINIUM BROMIDE (INCRUSE ELLIPTA) 7'S IH SCH (16:49)
[2018-12-25] MEDS: D5 NS 1000 ML IV SOLUTION 1,000 ML IV SCH ×2 (17:09→22:48)
[2018-12-26] VITALS: BP 106/71
[2018-12-26] MEDS: oxyCODONE/APAP 10/325MG (PERCOCET 10) TABLET PO PRN ×2 (01:18→05:42)
[2018-12-26] MEDS: inSUlin ASPART (NovoLOG) 1 UNIT/0.01 ML (CHARGE PER UNIT) SC SCH ×2 (05:16→12:34)
[2018-12-26] MEDS: metroNIDAZOLE 500MG/100ML IVPB 100 ML IV SCH (05:41)
[2018-12-26] MEDS: SUCRALFATE 1 GM (CARAFATE) TAB PO SCH ×2 (05:41→12:34)
[2018-12-26 07:05] LABS: HEPATITIS C ANTIBODY C Non-Reactive (Non-Reactive)
--- NOTE | 2018-12-26 07:41 | Discharge Inst-Skilled Nursing ---
Discharge Inst-Skilled NF Patient Instructions Patient Problems: Colitis Debility Consult/Follow Up/Orders Skilled NF Admit to: [facility] Certifications SNF I certify that SNF services are required to be given on an inpatient basis because of the above named patient's need for intermediate care on a continuing basis for the conditions(s) for which he/she was receiving inpatient hospital services prior to his/her transfer to the SNF. 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 Continued Medications: Albuterol Sulfate (Ventolin Hfa) 18 Gm Hfa.aer.ad 2 PUFF INH QID PRN for WHEEZING, INHALER Diclofenac Sodium (Diclofenac Sodium) 75 Mg Tablet.dr 75 MG PO BID, TAB Docusate Sodium (Colace) 100 Mg Capsule 100 MG PO DAILY, CAP Fluticasone/Vilanterol (Breo Ellipta 200-25 Mcg INH) 1 Each Blst.w.dev 1 PUFF INH DAILY, INHALER Furosemide (Furosemide) 40 Mg Tablet 40 MG PO DAILY, TAB Gabapentin (Gabapentin) 600 Mg Tablet 600 MG PO TID, TAB Morphine Sulfate (Morphine Sulfate ER) 30 Mg Tablet.er 30 MG PO Q12H, TAB Oxycodone HCl/Acetaminophen (Oxycodone-Acetaminophen 10-325) 1 Each Tablet 1 TAB PO TID PRN for PAIN-BREAKTHROUGH, TAB Pantoprazole Sodium (Pantoprazole Sodium) 40 Mg Tablet.dr 40 MG PO 1500, TAB Potassium Chloride (Potassium Chloride) 20 Meq Tab.er.prt 20 MEQ PO DAILY, TAB Rosuvastatin Calcium (Rosuvastatin Calcium) 10 Mg Tablet 10 MG PO 1500, TAB Sucralfate (Sucralfate) 1 Gm Tablet 1 GM PO ACHS, TAB Tiotropium [place] (Spiriva) 1 Inh Aerp 1 CAP INH 1500, INHALER Vitamin B Complex (Vitamin B Complex) 1 Each Tablet 1 TAB PO DAILY, TAB Vitamin E Acetate (Vitamin E) 400 Unit Capsule 400 UNIT PO DAILY, CAP Vortioxetine Hydrobromide (Trintellix) 20 Mg Tablet 20 MG PO DAILY, TAB Discontinued Medications: Ezetimibe (Ezetimibe) 10 Mg Tablet 10 MG PO DAILY, TAB Ondansetron HCl (Ondansetron HCl) 4 Mg Tablet 4 MG PO Q8H PRN for NAUSEA/VOMITING-1ST LINE, TAB Kathia Fernandez Dec 25, 2018 08:50 KATHIA FERNANDEZ MD Dec 25, 2018 08:50
[2018-12-26 08:12] VITALS: BP 93/53
[2018-12-26] MEDS: UMECLIDINIUM BROMIDE (INCRUSE ELLIPTA) 7'S IH SCH (08:15)
[2018-12-26] MEDS: RT-ADVAIR HFA 115/21 MCG PER PUFF IH SCH (08:18)
[2018-12-26 08:57] VITALS: BP 140/71
[2018-12-26] MEDS: ENOXAPARIN 40 MG/0.4 ML (LOVENOX) SYR SC SCH (09:00)
[2018-12-26] MEDS: CIPROFLOXACIN IV 400MG/200ML 200 ML IV SCH (09:00)
[2018-12-26] MEDS: morphine ER 30 MG (MS CONTIN) TAB PO SCH (09:01)
[2018-12-26] MEDS: FUROSEMIDE 40 MG (LASIX) TAB PO SCH (09:01)
[2018-12-26] MEDS: ETODOLAC 300 MG (LODINE) CAP PO SCH (09:01)
[2018-12-26] MEDS: GABAPENTIN 600 MG (NEURONTIN) TAB PO SCH ×2 (09:01→12:34)
--- NOTE | 2018-12-26 10:12 | NUR ---
CM/SS spoke with patient after RNing stated that she was wavering on what she wanted to do at discharge. Patient stated that she had family in [place] she could stay with until she has assisted living apartment, she stated that she has application but has not turned it in. Patient attempted to call Bradysherriedulce (sister, ) this was not a working number. This life underwriter spoke with Naa (sister, ) and she felt that skilled stay in [place] would be patient's best choice. Naa stated that none of the siblings are in good health or position to care for her. Patient stated doesn't want to go to [place] as had a friend that had a hard time leaving and that her mother there. Patient expressed she was upset that her siblings wouldn't help her out when she was in need. Discussed how a SNF stay would allow her to build strength before returning home or to assisted living.
--- NOTE | 2018-12-26 11:34 | NUR ---
CM/SS patient is adamant about going home and states that she will stay with a cousin for a bit before returning home. Let [facility] know that the patient will not be coming. Updated Wilbert(siblings, ).
--- NOTE | 2018-12-26 12:48 | Discharge Instructions ---
Discharge [facility] Discharge Medications New, Converted or Re-Newed RX: Transmitted to Pharmacy New Medications: Ciprofloxacin HCl (Cipro) 500 Mg Tablet 500 MG PO BID, #14 TAB 0 Refills Metronidazole (Flagyl) 500 Mg Tablet 500 MG PO TID, #21 TAB 0 Refills Changed Medications: Duloxetine HCl (Duloxetine HCl) 60 Mg Capsule.dr 60 MG PO 0800,1500, #1 CAP 0 Refills (Changed from: Refills: ) Hold duloxetine until antibiotics are complete. Continued Medications: Albuterol Sulfate (Ventolin Hfa) 18 Gm Hfa.aer.ad 2 PUFF INH QID PRN for WHEEZING, INHALER Diclofenac Sodium (Diclofenac Sodium) 75 Mg Tablet.dr 75 MG PO BID, TAB (This prescription has been renewed) Docusate Sodium (Colace) 100 Mg Capsule 100 MG PO DAILY, CAP Fluticasone/Vilanterol (Breo Ellipta 200-25 Mcg INH) 1 Each Blst.w.dev 1 PUFF INH DAILY, INHALER (This prescription has been renewed) Furosemide (Furosemide) 40 Mg Tablet 40 MG PO DAILY, TAB Gabapentin (Gabapentin) 600 Mg Tablet 600 MG PO TID, TAB Morphine Sulfate (Morphine Sulfate ER) 30 Mg Tablet.er 30 MG PO Q12H, TAB (This prescription has been renewed) Oxycodone HCl/Acetaminophen (Oxycodone-Acetaminophen 10-325) 1 Each Tablet 1 TAB PO TID PRN for PAIN-BREAKTHROUGH, TAB Pantoprazole Sodium (Pantoprazole Sodium) 40 Mg Tablet.dr 40 MG PO 1500, TAB Potassium Chloride (Potassium Chloride) 20 Meq Tab.er.prt 20 MEQ PO DAILY, TAB (This prescription has been renewed) Rosuvastatin Calcium (Rosuvastatin Calcium) 10 Mg Tablet 10 MG PO 1500, TAB Sucralfate (Sucralfate) 1 Gm Tablet 1 GM PO ACHS, TAB (This prescription has been renewed) Tiotropium [place] (Spiriva) 1 Inh Aerp 1 CAP INH 1500, INHALER (This prescription has been renewed) Vitamin B Complex (Vitamin B Complex) 1 Each Tablet 1 TAB PO DAILY, TAB (This prescription has been renewed) Vitamin E Acetate (Vitamin E) 400 Unit Capsule 400 UNIT PO DAILY, CAP Vortioxetine Hydrobromide (Trintellix) 20 Mg Tablet 20 MG PO DAILY, TAB (This prescription has been renewed) Discontinued Medications: Ezetimibe (Ezetimibe) 10 Mg Tablet 10 MG PO DAILY, TAB Ondansetron HCl (Ondansetron HCl) 4 Mg Tablet 4 MG PO Q8H PRN for NAUSEA/VOMITING-1ST LINE, TAB Patient Instructions Goal/Follow Up Appt: Follow up with Dr. Cano on December 31 at 2:40 pm. Activity & Diet Discharge Diet: Cardiac Diet Activity as Tolerated: Yes Copy Copies To 1: NEERU CANO MD, BETHANY N MD Dec 26, 2018 12:48
[2018-12-26 14:00] VITALS: BP 140/71
--- NOTE | 2018-12-26 14:00 | NUR ---
DISCHARGE INSTRUCTIONS GIVEN TO PATIENT WITH TIME ALLOWED FOR QUESTIONS. IV REMOVED WITH CATHETER INTACT. NO COMPLAINTS OF PAIN AT THIS TIME. FAMILY AT BEDSIDE TO TAKE PATIENT HOME. PATIENT LEFT VIA WHEELCHAIR ACCOMPANIED BY FAMILY AND STAFF TO PRIVATE VEHICLE.
--- NOTE | 2018-12-26 14:34 | Discharge Summary ---
Diagnosis/Chief Complaint Date of Admission Dec 23, 2018 at 12:45 Date of Discharge Dec 26, 2018 Admission Diagnosis Admission Diagnosis See problem list Discharge Diagnosis See problem list Problems/Diagnosis: (1) Colitis Assessment & Plan: Concern for c diff colitis due to recent abx use, but C diff toxin negative. D/C vancomycin and start cipro/flagyl. Promethazine prn nausea, hold ondansetron due to interaction with cipro. Scripts for cipro/flagyl given on d/c. Status: Acute (2) UTI (urinary tract infection) Assessment & Plan: Possible, based on UA and symptoms, culture pending. Covered with abx for colitis. 12/25 culture no growth Status: Resolved Resolution Date/Time: 12/25/18 @ 12:12 (3) Fall Assessment & Plan: She does not recall injury but has bruise to eye, CT head with no acute changes. PT for eval, normally walks with canes. 12/25 plan for d/c to SNF- they can accept tomorrow Patient refused SNF placement and was adamant about discharge to home. Status: Acute (4) Elevated AST (SGOT) Assessment & Plan: Unclear etiology, possibly due to colitis, repeat labs in the am, check hepatitis panel. 12/26 LFTs improving, hep panel negative Status: Acute (5) Alkaline phosphatase elevation Status: Acute (6) Chronic pain Assessment & Plan: Continue home medications, consider taper down on opiates given her apparent difficulty in self-care. Qualifiers: Qualified Codes: G89.4 - Chronic pain syndrome Status: Chronic (7) Thoracic back pain Assessment & Plan: Acute on chronic pain with point tenderness, will obtain xray. 12/26 xray read with worsening scoliosis but no fractures noted Qualifiers: Status: Acute (8) Discharge planning issues Assessment & Plan: Appears to have difficulty managing at home, social media project manager consulted. Plan for d/c to SNF 12/26, however patient refused. Status: Acute Chief Complaint/HPI Chief Complaint/HPI The patient was brought to the [facility] ER via EMS yesterday for nausea and epigastric abdominal pain for 3 days. The patient is confused and the history is inconsistent. She states that she is still having the pain and describes it as diffuse, intermittent, crampy pain. She is also complaining of sharp pain in her back which locates in the midline of her middle thoracic vertebrae. She rates the pain as 9/10. She admits to previous trauma to the back but could not remember when. She states that she is also experiencing shortness of breath with exertion. She denies any recent changes in bowel or bladder. The review of systems was otherwise unremarkable. Discharge Summary-Simple/Stand Consultations Discharge Physical Examination Allergies: Coded Allergies: Penicillins (Unverified Allergy, Mild, PT DOES NOT REMEMBER RXN > 30 YRS, 04/21/18) Pt has received Cefepime & Ceftriaxone w/o issue nalbuphine (Unverified Allergy, Mild, Pt has received Lortab & Morphine in the past w/o issue, 11/21/18) Vitals & I&Os Vital Sign - Last 12Hours Date Time Temp Pulse Resp B/P (MAP) Pulse Ox O2 Delivery O2 Flow Rate FiO2 12/26/18 08:57 140/71 (94) 12/26/18 08:18 95 Room Air 12/26/18 08:12 99.8 85 16 Intake and Output 12/26/18 00:00 Intake Total 3210 ml Output Total 1950 ml Balance 1260 ml Hospital Course See final discharge diagnosis. Radiology Reviewed 3/ CT abdomen/pelvis: IMPRESSION: 1. Postsurgical changes from gastric bypass. No evidence of bowel obstruction. 2. There is long segment spasm of the colon with very little stool or gas. Could not exclude colitis. Clinical correlation. 3/3 CT head: IMPRESSION: 1. Moderate global volume loss without CT evidence of an acute intracranial abnormality. 2. No facial fracture evident. No blood evident within the paranasal sinuses. The intraorbital contents appear unremarkable. 3/3 CXR no acute acute process Discharge Instructions to patient/family Please see electronic discharge instructions given to patient. Discharge Medications Reviewed and agree with Discharge Medication list on patient's Discharge Instruction sheet Clinical Quality Measures DVT/VTE Risk/Contraindication: Risk Factor Score Per Nursin RFS Level Per Nursing on Admit: 4+=Very High Copy Copies To 1: NEERU CANO MD, BETHANY N MD Dec 26, 2018 14:34
== END 2018-12-26 14:00 | disposition home or self-care (01) | DRG 392 ==
LOC: EDUNIT# 10:47 → ER 10:48 → 4TH 12:45
PROVIDERS: ADMIT Internal Medicine; ATTEND Family Medicine
DX: K52.9 Noninfective gastroenteritis and colitis, unspecified (principal); N39.0 Urinary tract infection, site not specified; F03.90 Unspecified dementia, unspecified severity, without behavioral disturbance, psychotic disturbance, mood disturbance, and anxiety; F05 Delirium due to known physiological condition; G89.4 Chronic pain syndrome; M54.6 Pain in thoracic spine; E78.00 Pure hypercholesterolemia, unspecified; S00.11XA Contusion of right eyelid and periocular area, initial encounter; R74.8 Abnormal levels of other serum enzymes; J44.9 Chronic obstructive pulmonary disease, unspecified; G47.30 Sleep apnea, unspecified; K21.9 Gastro-esophageal reflux disease without esophagitis; M19.91 Primary osteoarthritis, unspecified site; E11.9 Type 2 diabetes mellitus without complications; F41.9 Anxiety disorder, unspecified; F32.9 Major depressive disorder, single episode, unspecified; W19.XXXA Unspecified fall, initial encounter; Z60.2 Problems related to living alone; Z98.0 Intestinal bypass and anastomosis status; Z79.891 Long term (current) use of opiate analgesic; Z86.19 Personal history of other infectious and parasitic diseases; Z86.73 Personal history of transient ischemic attack (TIA), and cerebral infarction without residual deficits; Z96.653 Presence of artificial knee joint, bilateral; Z96.611 Presence of right artificial shoulder joint; Z96.612 Presence of left artificial shoulder joint
CPT/HCPCS: 36415; 51702; 70450; 71045; 72070; 74176; 80053; 80074; 81000; 82962; 83605; 83690; 85025; 85027; 87015; 87040; 87045; 87046; 87088; 87324; 87328; 87329; 87449; 87899; 94640; 94760; 96361; 96374; 96375